=== PATIENT | male | born 1955 | race Hispanic/Latino ===

== ENCOUNTER 2019-03-05 08:27 | Emergency (ER) | payer BC ==
[2019-03-05] MEDS ORDERED: NA CHLORIDE 0.9% 1,000 ML ONE (08:39)
[2019-03-05] MEDS ORDERED: MEPERIDINE HCL 25 MG/0.5 ML ONE (08:39)
[2019-03-05] MEDS ORDERED: ONDANSETRON 4 MG/2 ML VIAL ONE (08:39)
[2019-03-05 08:49] LABS: Absolute Lymphocytes (CBC) 1.1 K/uL (0.7-4.9); Basophils % 0.6 % (0-1.3); Hematocrit 42.1 % (39.6-49.0); Lymphocytes % 8.8 % (15.3-44.8); MPV 8.7 fL (7.6-11.3); RBC Red Blood Cell Count 5.25 M/uL (4.33-5.43)
[2019-03-05 09:04] LABS: Urine Blood NEGATIVE (NEG); Urine Glucose 2+ (NEG); Urine Protein NEGATIVE (NEG)
[2019-03-05 09:20] LABS: Albumin 3.5 g/dL (3.4-5.0); Bilirubin Direct 0.1 mg/dL (0-0.2); Bilirubin Total 0.5 mg/dL (0.2-1.0); Potassium 3.9 mmol/L (3.5-5.1); Protein, Total 7.1 g/dL (6.4-8.2)
[2019-03-05 09:36] LABS: Urine RBC <5 /HPF (NONE SEEN)
[2019-03-05 09:37] LABS: Urine Bacteria <20 /HPF (NONE SEEN); Urine Culture Reflex Order NOT NEEDED
--- NOTE | 2019-03-05 10:08 | RAD REPORT ---
EXAM DESCRIPTION: CTAbdomen Pelvis W Contrast - 03/05/2019 9:44 am CLINICAL HISTORY: Abdominal pain. lower abd pain COMPARISON: CT ABD PELVIS W CONTRAST dated 07/15/2014 TECHNIQUE: Biphasic CT imaging of the abdomen and pelvis was performed with 100 ml non-ionic IV cont rast. All CT scans are performed using dose optimization technique as appropriate and may include automated exposure control or mA/KV adjustment according to patient size. FINDINGS: The lung bases are clear. The liver demonstrates vague area of arterial phase enhancement in the superior posterior right lobe, unchanged. This is most likely related to a benign vascular lesion. The spleen, adrenal glands, panc reas and right kidney are within normal limits. Small left renal cyst is present. No stone or hydrone phrosis of either kidney. No bowel obstruction, free air, free fluid or abscess. Mild thickening of the wall of the descending colon and sigmoid colon is seen suggesting a mild left-sided colitis. The appendix is normal. No pravin dence of significant lymphadenopathy. No suspicious bony findings. IMPRESSION: Mild colitis of the descending colon is suspected.
[2019-03-05] MEDS ORDERED: METRONIDAZOLE 500mg IVPB 500 MG/100 ML BAG IV ONE (10:35)
[2019-03-05] MEDS ORDERED: CIPROFLOXACIN 400mg IV 400 MG/200 ML BAG IV ONE (10:35)
--- NOTE | 2019-03-05 10:48 | ER ---
Nurse's Notes [facility] Name: Luis Guzmán Age: 63 yrs Sex: Male : 1955 Arrival Date: 03/05/2019 Time: 08:28 Bed 4 Private MD: Cristo Schwartz B Diagnosis: Left sided colitis Presentation: 03/05 08:29 Presenting complaint: Patient states: suprapubic discomfort, vomiting that began this ss morning. Diarrhea that began yesterday. Denies fever. Transition of care: patient was not received from another setting of care. Onset of symptoms was March 04, 2019. 08:29 Acuity: POORNIMA 3 ss 08:29 Method Of Arrival: Ambulatory ss 08:35 Risk Assessment: Do you want to hurt yourself or someone else? Patient reports no tw2 desire to harm self or others. Initial Sepsis Screen: Does the patient meet any 2 criteria? No. Patient's initial sepsis screen is negative. Does the patient have a suspected source of infection? No. Patient's initial sepsis screen is negative. Care prior to arrival: None. Historical: - Allergies: 08:36 No Known Drug Allergies; tw2 - Home Meds: 08:36 Actoplus MET 15/1000MG Oral 1 tab 2 times per day [Active]; AMLODIPNE/ATORVASTATIN tw2 10/10 MG daily [Active]; carvedilol 6.25 mg Oral tab 1 tab 2 times per day [Active]; finasteride 5 mg Oral tab 1 tab once daily [Active]; irbesartan-hydrochlorothiazide 300-12.5 mg Oral tab 1 tab once daily [Active]; Klor-Con 10 10 mEq Oral TbER 1 tab once daily [Active]; Nesina 25 mg Oral tab 1 tab once daily [Active]; Toujeo SoloStar 300 unit/mL (1.5 mL) subcutaneous inpn 50 unit daily [Active]; - PMHx: 08:36 BPH; Diabetes - IDDM; Hypertension; tw2 - PSHx: 08:36 None; tw2 - Immunization history:: Adult Immunizations. - Social history:: Smoking status: . - Ebola Screening: : Patient denies travel to an Ebola-affected area in the 21 days before illness onset. - Family history:: not pertinent. - Hospitalizations: : No recent hospitalization is reported. Screenin:35 Abuse screen: Denies threats or abuse. Nutritional screening: No deficits noted. tw2 Tuberculosis screening: No symptoms or risk factors identified. Fall Risk None identified. Assessment: 08:59 General: Appears in no apparent distress. well groomed, Behavior is calm, cooperative, tw2 appropriate for age. Pain: Complains of pain in suprapubic area. Neuro: Level of Consciousness is awake, alert, obeys commands, Oriented to person, place, time, situation. Cardiovascular: Heart tones S1 S2 Patient's skin is warm and dry. Respiratory: Airway is patent Respiratory effort is even, unlabored, Respiratory pattern is regular, symmetrical, Breath sounds are clear bilaterally. GI: Abdomen is flat, Bowel sounds present X 4 quads. Abd is soft X 4 quads Reports lower abdominal pain, diarrhea, nausea. : No signs and/or symptoms were reported regarding the genitourinary system. EENT: No signs and/or symptoms were reported regarding the EENT system. Derm: No signs and/or symptoms reported regarding the dermatologic system. Musculoskeletal: Range of motion: intact in all extremities. 10:00 Reassessment: Patient appears in no apparent distress at this time. No changes from aj1 previously documented assessment. Patient and/or family updated on plan of care and expected duration. Pain level reassessed. Patient is alert, oriented x 3, equal unlabored respirations, skin warm/dry/pink. 10:49 Reassessment: Patient discharge pending completion of IV antibiotics. aj1 Vital Signs: 08:35 BP 128 / 72; Pulse 67; Resp 16; Temp 97.6; Pulse Ox 98% on R/A; Weight 88 kg; Height 5 ss ft. 7 in. (170.18 cm); Pain 6/10; 09:14 BP 122 / 64; Pulse 64; Resp 17; Pulse Ox 97% on R/A; tw2 12:30 BP 126 / 70; Pulse 66; Resp 17; Temp 97.6; Pulse Ox 100% on R/A; sg 08:35 Body Mass Index 30.38 (88.00 kg, 170.18 cm) ss ED Course: 08:28 Patient arrived in ED. mr 08:29 Cristo Schwartz MD is Private Physician. mr 08:29 Tao Ferrari MD is Attending Physician. rn 08:33 Cortney Sims, RN is Primary Nurse. tw2 08:35 Arm band placed on. tw2 08:35 Bed in low position. Call light in reach. tw2 08:43 Triage completed. ss 08:44 Urine collected: clean catch specimen, clear. Initial lab(s) drawn, by me, sent to lab. ms Inserted saline lock: 20 gauge in right forearm, using aseptic technique. Blood collected. 08:55 Radiology exam delayed due to lab results not completed at this time. (BUN/Creatinine). kw1 09:40 CT completed. Patient tolerated procedure well. Patient moved to CT via stretcher. sw Patient moved back from CT. 09:44 CT Abd/Pelvis - IV Contrast Only In Process Unspecified. EDMS 10:29 Primary Nurse role handed off by Cortney Sims RN sg 10:29 Zay Medrano, RN is Primary Nurse. sg 11:15 Awaiting: IV fluids to infuse prior to Discharge to home. sg 12:30 No provider procedures requiring assistance completed. IV discontinued, intact, sg bleeding controlled, No redness/swelling at site. Pressure dressing applied. Administered Medications: 08:40 Drug: Zofran 4 mg Route: IVP; Site: right forearm; tw2 10:40 Follow up: Response: No adverse reaction sg 08:43 Drug: Demerol 25 mg Route: IVP; Site: right forearm; tw2 10:40 Follow up: Response: No adverse reaction; Pain is decreased sg 08:46 Drug: NS 0.9% 1000 ml Route: IV; Rate: 1000 ml; Site: right forearm; tw2 09:00 Follow up: Response: No adverse reaction; IV Status: Completed infusion; IV Intake: sg 990ml 10:40 Drug: Cipro 400 mg Volume: 200 ml; Route: IVPB; Infused Over: 60 mins; Site: right sg forearm; 10:53 Drug: Flagyl 500 mg Volume: 100 ml; Route: IVPB; Rate: 200 ml/hr; Infused Over: 30 sg mins; Site: right forearm; Intake: 09:00 IV: 990ml; Total: 990ml. sg Outcome: 10:47 Discharge ordered by . rn 12:30 Discharged to home ambulatory. sg 12:30 Condition: good 12:30 Discharge instructions given to patient, Instructed on discharge instructions, follow up and referral plans. medication usage, safety practices, Demonstrated understanding of instructions, follow-up care, medications, Prescriptions given X 4. 12:33 Patient left the ED. ss Signatures: Dispatcher [employer] EDCheryl Richards RN RN aj1 Zay Medrano RN RN Rachel Chong mr Bryan, Yday ms Ferrari, MD MD stuart Burger Shelby, RN RN ss Warren, Shannon sw Wise, Tara, RN RN tw2 Adrienne Lomeli [facility]
--- NOTE | 2019-03-05 10:48 | EDPHYS ---
Physician Documentation [facility] Name: Luis Guzmán Age: 63 yrs Sex: Male : 1955 Arrival Date: 03/05/2019 Time: 08:28 Bed 4 Private MD: Cristo Schwartz B ED Physician Tao Ferrari HPI: 03/05 08:37 This 63 yrs old Male presents to ER via Unassigned with complaints of rn Abdominal Pain. 08:37 The patient presents with abdominal pain in the lower abdomen. Onset: The rn symptoms/episode began/occurred yesterday. The symptoms do not radiate. Associated signs and symptoms: Pertinent positives: nausea and vomiting, diarrhea, Pertinent negatives: blood in stools, dysuria, fever, vomiting blood. The symptoms are described as sharp, stabbing. Modifying factors: The symptoms are alleviated by nothing, the symptoms are aggravated by touching the area. Severity of pain: At its worst the pain was moderate in the emergency department the pain has improved. The patient has not experienced similar symptoms in the past. The patient has not recently seen a physician. Historical: - Allergies: 08:36 No Known Drug Allergies; tw2 - Home Meds: 08:36 Actoplus MET 15/1000MG Oral 1 tab 2 times per day [Active]; AMLODIPNE/ATORVASTATIN tw2 10/10 MG daily [Active]; carvedilol 6.25 mg Oral tab 1 tab 2 times per day [Active]; finasteride 5 mg Oral tab 1 tab once daily [Active]; irbesartan-hydrochlorothiazide 300-12.5 mg Oral tab 1 tab once daily [Active]; Klor-Con 10 10 mEq Oral TbER 1 tab once daily [Active]; Nesina 25 mg Oral tab 1 tab once daily [Active]; Toujeo SoloStar 300 unit/mL (1.5 mL) subcutaneous inpn 50 unit daily [Active]; - PMHx: 08:36 BPH; Diabetes - IDDM; Hypertension; tw2 - PSHx: 08:36 None; tw2 - Immunization history:: Adult Immunizations. - Social history:: Smoking status: . - Ebola Screening: : Patient denies travel to an Ebola-affected area in the 21 days before illness onset. - Family history:: not pertinent. - Hospitalizations: : No recent hospitalization is reported. ROS: 08:37 Constitutional: Negative for fever, and weight loss, Eyes: Negative for injury, pain, rn redness, and discharge, ENT: Negative for injury, pain, and discharge, Neck: Negative for injury, pain, and swelling, Cardiovascular: Negative for chest pain, palpitations, and edema, Respiratory: Negative for shortness of breath, cough, wheezing, and pleuritic chest pain, Abdomen/GI: + lower abd pain/nausea/vomiting/diarrhea Back: Negative for injury and pain, : Negative for injury, bleeding, discharge, and swelling, MS/Extremity: Negative for injury and deformity, Skin: Negative for injury, rash, and discoloration, Neuro: Negative for headache, weakness, numbness, tingling, and seizure. Exam: 08:37 Constitutional: This is a well developed, well nourished patient who is awake, alert, rn and in no acute distress. Ambulatory to room without difficulty or distress, walks slowly. Head/Face: Normocephalic, atraumatic. Eyes: Pupils equal round and reactive to light, extra-ocular motions intact. Lids and lashes normal. Conjunctiva and sclera are non-icteric and not injected. Cornea within normal limits. Periorbital areas with no swelling, redness, or edema. ENT: MMM Neck: Trachea midline, no thyromegaly or masses palpated, and no cervical lymphadenopathy. Supple, full range of motion without nuchal rigidity, or vertebral point tenderness. No Meningismus. Cardiovascular: Regular rate and rhythm. No pulse deficits. Respiratory: No increased work of breathing, no retractions or nasal flaring. Abdomen/GI: soft, mild suprapubic tenderness and RLQ tenderness, no rebound, no masses, no inguinal hernia MS/ Extremity: Pulses equal, no cyanosis. Neurovascular intact. Full, normal range of motion. Equal circumference. Neuro: Awake and alert, GCS 15, oriented to person, place, time, and situation. Cranial nerves II-XII grossly intact. Motor strength 5/5 in all extremities. Sensory grossly intact. Cerebellar exam normal. Normal gait. Vital Signs: 08:35 BP 128 / 72; Pulse 67; Resp 16; Temp 97.6; Pulse Ox 98% on R/A; Weight 88 kg; Height 5 ss ft. 7 in. (170.18 cm); Pain 6/10; 09:14 BP 122 / 64; Pulse 64; Resp 17; Pulse Ox 97% on R/A; tw2 12:30 BP 126 / 70; Pulse 66; Resp 17; Temp 97.6; Pulse Ox 100% on R/A; sg 08:35 Body Mass Index 30.38 (88.00 kg, 170.18 cm) ss MDM: 08:29 Patient medically screened. rn 10:46 Differential diagnosis: appendicitis, diverticulitis, non-specific abd pain, rn pancreatitis, Ureterolithiasis, urinary tract infection. Data reviewed: vital signs, nurses notes, lab test result(s), radiologic studies, CT scan, and as a result, I will discharge patient. 10:46 Counseling: I had a detailed discussion with the patient and/or guardian regarding: the rn historical points, exam findings, and any diagnostic results supporting the discharge/admit diagnosis, lab results, radiology results, the need for outpatient follow up, to return to the emergency department if symptoms worsen or persist or if there are any questions or concerns that arise at home. Response to treatment: the patient's symptoms have mildly improved after treatment, and as a result, I will discharge patient. Special discussion: Based on the patient's Hx, exam, and Dx evaluation, there is no indication for emergent surgery or inpatient Tx. It is understood by the patient/guardian that if the Sx's persist or worsen they need to return immediately for re-evaluation. I discussed with the patient/guardian in detail that at this point there is no indication for admission to the hospital. It is understood, however, that if the symptoms persist or worsen the patient needs to return immediately for re-evaluation. ED course: Pt with mild colitis, will treat with abx, normal vitals, improved with nausea medication, return precautions given and understood. . 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 03/05 08:35 Order name: Hepatic Function; Complete Time: 09:40 rn 03/05 08:35 Order name: Lipase; Complete Time: 09:40 rn 03/05 08:36 Order name: Urine Microscopic Only; Complete Time: 09:40 rn 03/05 08:35 Order name: CT Abd/Pelvis - IV Contrast Only; Complete Time: 10:26 rn 03/05 08:36 Order name: Basic Metabolic Panel; Complete Time: 09:40 EDMS 03/05 08:36 Order name: CBC with Automated Diff; Complete Time: 09:40 EDMS 03/05 08:36 Order name: Creatinine (Radiology Only); Complete Time: 09:40 EDMS 03/05 08:44 Order name: Urine Dipstick--Ancillary (enter results); Complete Time: 09:40 bd 03/05 08:35 Order name: IV Saline Lock; Complete Time: 08:45 rn 03/05 08:35 Order name: Labs collected and sent; Complete Time: 08:45 rn 03/05 08:36 Order name: Urine Dipstick-Ancillary (obtain specimen); Complete Time: 08:44 rn Administered Medications: 08:40 Drug: Zofran 4 mg Route: IVP; Site: right forearm; tw2 10:40 Follow up: Response: No adverse reaction sg 08:43 Drug: Demerol 25 mg Route: IVP; Site: right forearm; tw2 10:40 Follow up: Response: No adverse reaction; Pain is decreased sg 08:46 Drug: NS 0.9% 1000 ml Route: IV; Rate: 1000 ml; Site: right forearm; tw2 09:00 Follow up: Response: No adverse reaction; IV Status: Completed infusion; IV Intake: sg 990ml 10:40 Drug: Cipro 400 mg Volume: 200 ml; Route: IVPB; Infused Over: 60 mins; Site: right sg forearm; 10:53 Drug: Flagyl 500 mg Volume: 100 ml; Route: IVPB; Rate: 200 ml/hr; Infused Over: 30 sg mins; Site: right forearm; Disposition: 03/05/19 10:47 Discharged to Home. Impression: Left sided colitis. - Condition is Stable. - Discharge Instructions: Diarrhea, Adult, Nausea and Vomiting, Adult, Colitis. - Prescriptions for Zofran ODT 4 mg Oral tablet,disintegrating - place 1 tablet by TRANSLINGUAL route every 8 hours As needed; 20 tablet. Cipro 500 mg Oral Tablet - take 1 tablet by ORAL route every 12 hours for 10 days; 20 tablet. Flagyl 500 mg Oral Tablet - take 1 tablet by ORAL route every 8 hours for 10 days; 30 tablet. Ultram 50 mg Oral Tablet - take 1 tablet by ORAL route every 6 hours As needed; 15 tablet. - Medication Reconciliation Form, Thank You Letter, Antibiotic Education, Prescription Opioid Use, Work release form form. - Follow up: Private Physician; When: As needed; Reason: Recheck today's complaints, Re-evaluation by your physician. - Problem is new. - Symptoms have improved. Signatures: Dispatcher [employer] EDZay Silverio RN RN Tao Ferrari MD MD rn Smirch, Shelby, RN RN ss Wise, Tara, RN RN tw2 Corrections: (The following items were deleted from the chart) 12:33 10:47 03/05/2019 10:47 Discharged to Home. Impression: Left sided colitis. Condition is ss Stable. Forms are Work release form, Medication Reconciliation Form, Thank You Letter, Antibiotic Education, Prescription Opioid Use. Follow up: Private Physician; When: As needed; Reason: Recheck today's complaints, Re-evaluation by your physician. Problem is new. Symptoms have improved. rn
[2019-03-05 12:54] VITALS: BP 122/64; O2SAT 97
[2019-03-05 12:56] VITALS: TEMP 97.6
== END 2019-03-05 12:33 | disposition home or self-care (01) ==
LOC: ER 08:27
DX: K51.50 Left sided colitis without complications (principal); I10 Essential (primary) hypertension; E11.9 Type 2 diabetes mellitus without complications; Z79.4 Long term (current) use of insulin
CPT/HCPCS: 85025; 80048; 36415; 80076; 83690; 74177; 96375; 96374; 99284; Q9967; J2175; J7030; J2405; J0744; 81003; 81015

== ENCOUNTER 2021-01-24 17:03 | Emergency (ER) | payer BC, OTHER ==
[2021-01-24 17:26] LABS: Urine Blood Negative (Negative); Urine Glucose Negative (Negative); Urine Protein Negative (Negative); Urine pH 5.5 (5.0-7.0)
[2021-01-24 18:04] LABS: Absolute Lymphocytes (CBC) 1.4 K/uL (0.7-4.9); Basophils % 0.5 % (0-1.3); Hematocrit 43.2 % (39.6-49.0); Lymphocytes % 14.4 % (15.3-44.8); MPV 8.5 fL (7.6-11.3); RBC Red Blood Cell Count 5.35 M/uL (4.33-5.43)
[2021-01-24 18:13] LABS: BUN Blood Urea Nitrogen 15 mg/dL (7-18); Bicarbonate 26 mmol/L (21-32); Glucose Level 131 mg/dL (74-106); Potassium 3.7 mmol/L (3.5-5.1); Sodium Level 138 mmol/L (136-145)
--- NOTE | 2021-01-24 19:14 | ER ---
Nurse's Notes [facility] Name: Luis Guzmán Age: 65 yrs Sex: Male : 1955 Arrival Date: 01/24/2021 Time: 17:04 Bed 3 Private MD: Kayla Sung C Diagnosis: Myalgia;Other polyuria;Diarrhea, unspecified;Headache Presentation: 01/24 17:14 Chief complaint: Patient states: has had diarrhea and body aches , feels tired X 2 iw week, sugar has been high and has had deysi mid back pain , has pain with urination and frequency. Coronavirus screen: Client presents with at least one sign or symptom that may indicate coronavirus-19. Ebola Screen: Patient negative for fever greater than or equal to 101.5 degrees Fahrenheit, and additional compatible Ebola Virus Disease symptoms Patient denies exposure to infectious person. Patient denies travel to an Ebola-affected area in the 21 days before illness onset. No symptoms or risks identified at this time. Initial Sepsis Screen: Does the patient meet any 2 criteria? Does the patient have a suspected source of infection?. Risk Assessment: Do you want to hurt yourself or someone else? Patient reports no desire to harm self or others. Onset of symptoms was January 10, 2021. 17:14 Method Of Arrival: Ambulatory iw 17:14 Acuity: POORNIMA 3 iw Historical: - Allergies: 17:17 No Known Allergies; iw - PMHx: 17:17 BPH; Diabetes - IDDM; Hypertension; iw - PSHx: 17:17 None; iw - Immunization history:: Client reports receiving the 2nd dose of the Covid vaccine. - Social history:: Smoking status: Patient denies any tobacco usage or history of. Screenin:24 Abuse screen: Denies threats or abuse. Denies injuries from another. Nutritional ch5 screening: No deficits noted. Tuberculosis screening: No symptoms or risk factors identified. Fall Risk None identified. Assessment: 17:24 Reassessment: No changes from previously documented assessment. General: Appears in no ch5 apparent distress. uncomfortable. Neuro: No deficits noted. Vital Signs: 17:14 Temp 98.3(TE); Pulse Ox 99% on R/A; iw 17:14 BP 146 / 80; Pulse 78; Resp 16; Temp 98.3; Pulse Ox 99% on R/A; Weight 85.73 kg; Height iw 5 ft. 6 in. (167.64 cm); 17:24 BP 166 / 74; Pulse 70; Resp 18; Pulse Ox 97% on R/A; Pain 0/10; ch5 18:45 BP 141 / 74; Pulse 73; Resp 18; Pulse Ox 97% ; Pain 0/10; ch5 19:36 BP 138 / 70; Pulse 70; Resp 18; Pulse Ox 99% on R/A; Pain 2/10; wg 17:14 Body Mass Index 30.51 (85.73 kg, 167.64 cm) ED Course: 17:04 Patient arrived in ED. am2 17:04 Kayla Sung FNP is Private Physician. am2 17:17 Triage completed. iw 17:17 Arm band placed on. iw 17:24 Twin Vela, RN is Primary Nurse. ch5 17:24 Patient has correct armband on for positive identification. Bed in low position. Call 5 light in reach. Side rails up X 1. 17:26 No provider procedures requiring assistance completed. ch5 17:30 Griffin Garay MD is Attending Physician. kdr 17:44 CBC with Diff Sent. ch5 17:44 Chem 7 Sent. ch5 17:44 Urine Culture Sent. ch5 18:13 CXR XRAY In Process Unspecified. EDMS 19:43 IV discontinued, intact, bleeding controlled, No redness/swelling at site. Pressure wg dressing applied. Administered Medications: No medications were administered Outcome: 19:14 Discharge ordered by . kdr 19:44 Discharged to home ambulatory. wg 19:44 Condition: stable 19:44 Discharge instructions given to Instructed on discharge instructions, follow up and referral plans. medication usage, Demonstrated understanding of instructions, follow-up care, medications, Prescriptions given X 1. 19:44 Patient left the ED. Signatures: Dispatcher [employer] EDMS Griffin Garay MD MD kdr Stephanie Erazo, RN RN Mariama Hurst am2 Twin Vela RN RN 5 Andrea Clifton RN
--- NOTE | 2021-01-24 19:15 | EDPHYS ---
Physician Documentation [facility] Name: Luis Guzmán Age: 65 yrs Sex: Male : 1955 Arrival Date: 01/24/2021 Time: 17:04 Bed 3 Private MD: Kayla Sung C ED Physician Griffin Garay HPI: 01/24 17:48 This 65 yrs old Male presents to ER via Ambulatory with complaints of kdr Headache, body aches, Diarrhea. 17:49 The patient has been feeling poorly and tired for about 2 weeks with generalized kdr malaise, body aches and polyuria. He states that he had a physical exam for work about a month ago at which time the physician examining him indicated that he had "bacteria" but did not specify further what this might be. Patient been otherwise fine until the last 2 weeks when he had the above symptoms. He denies cough or congestion or any other Covid-like symptoms he denies fever. Onset: The symptoms/episode began/occurred gradually, 2 week(s) ago. Severity of symptoms: At their worst the symptoms were mild in the emergency department the symptoms are unchanged. The patient has not experienced similar symptoms in the past. The patient has been recently seen by a physician: the patient's primary care provider, For work physical about 1 month ago. Historical: - Allergies: 17:17 No Known Allergies; iw - PMHx: 17:17 BPH; Diabetes - IDDM; Hypertension; iw - PSHx: 17:17 None; iw - Immunization history:: Client reports receiving the 2nd dose of the Covid vaccine. - Social history:: Smoking status: Patient denies any tobacco usage or history of. ROS: 17:49 Constitutional: Negative for fever, chills, and weight loss, general malaise only with kdr arthralgias and myalgias Eyes: Negative for injury, pain, redness, and discharge, ENT: Negative for injury, pain, and discharge, Neck: Negative for injury, pain, and swelling, Cardiovascular: Negative for chest pain, palpitations, and edema, Respiratory: Negative for shortness of breath, cough, wheezing, and pleuritic chest pain, Back: Negative for injury and pain, : Negative for injury, bleeding, discharge, and swelling, MS/Extremity: Negative for injury and deformity, Skin: Negative for injury, rash, and discoloration, Psych: Negative for depression, anxiety, suicide ideation, homicidal ideation, and hallucinations, Allergy/Immunology: Negative for hives, rash, and allergies, Hematologic/Lymphatic: Negative for swollen nodes, abnormal bleeding, and unusual bruising. 17:49 Abdomen/GI: Positive for nausea, diarrhea, Occasional, Negative for vomiting, abdominal cramps, abdominal distension, anorexia, dysphagia, hematemesis, black/tarry stool, rectal pain, rectal bleeding. 17:49 Endocrine: Positive for polyuria, Negative for cold intolerance, heat intolerance, polydipsia, polyphagia. Exam: 17:49 Constitutional: This is a well developed, well nourished patient who is awake, alert, kdr and in no acute distress. Head/Face: Normocephalic, atraumatic. Eyes: Pupils equal round and reactive to light, extra-ocular motions intact. Lids and lashes normal. Conjunctiva and sclera are non-icteric and not injected. Cornea within normal limits. Periorbital areas with no swelling, redness, or edema. Neck: Trachea midline, no thyromegaly or masses palpated, and no cervical lymphadenopathy. Supple, full range of motion without nuchal rigidity, or vertebral point tenderness. No Meningismus. Chest/axilla: Normal chest wall appearance and motion. Nontender with no deformity. No lesions are appreciated. Cardiovascular: Regular rate and rhythm with a normal S1 and S2. No gallops, murmurs, or rubs. Normal PMI, no JVD. No pulse deficits. Respiratory: Lungs have equal breath sounds bilaterally, clear to auscultation and percussion. No rales, rhonchi or wheezes noted. No increased work of breathing, no retractions or nasal flaring. Abdomen/GI: Soft, non-tender, with normal bowel sounds. No distension or tympany. No guarding or rebound. No evidence of tenderness throughout. Back: No spinal tenderness. No costovertebral tenderness. Full range of motion. Skin: Warm, dry with normal turgor. Normal color with no rashes, no lesions, and no evidence of cellulitis. MS/ Extremity: Pulses equal, no cyanosis. Neurovascular intact. Full, normal range of motion. Neuro: Awake and alert, GCS 15, oriented to person, place, time, and situation. Cranial nerves II-XII grossly intact. Motor strength 5/5 in all extremities. Sensory grossly intact. Cerebellar exam normal. Normal gait. Psych: Awake, alert, with orientation to person, place and time. Behavior, mood, and affect are within normal limits. 17:49 Back: CVA tenderness, that is mild, Very mild CVA tenderness bilaterally right greater than left. Vital Signs: 17:14 Temp 98.3(TE); Pulse Ox 99% on R/A; iw 17:14 BP 146 / 80; Pulse 78; Resp 16; Temp 98.3; Pulse Ox 99% on R/A; Weight 85.73 kg; Height iw 5 ft. 6 in. (167.64 cm); 17:24 BP 166 / 74; Pulse 70; Resp 18; Pulse Ox 97% on R/A; Pain 0/10; ch5 18:45 BP 141 / 74; Pulse 73; Resp 18; Pulse Ox 97% ; Pain 0/10; ch5 19:36 BP 138 / 70; Pulse 70; Resp 18; Pulse Ox 99% on R/A; Pain 2/10; wg 17:14 Body Mass Index 30.51 (85.73 kg, 167.64 cm) iw MDM: 17:49 Data reviewed: vital signs, nurses notes, lab test result(s), radiologic studies. kdr Counseling: I had a detailed discussion with the patient and/or guardian regarding: the historical points, exam findings, and any diagnostic results supporting the discharge/admit diagnosis, lab results, radiology results. 19:14 Patient medically screened. [facility] 01/24 17:26 Order name: Urine Dipstick-Ancillary; Complete Time: 17:35 EDDC 01/24 17:35 Order name: CBC with Diff [facility] 01/24 17:35 Order name: Chem 7 [facility] 01/24 17:35 Order name: Urine Culture [facility] 01/24 17:35 Order name: CBC with Automated Diff; Complete Time: 18:54 EDDC 01/24 17:36 Order name: Basic Metabolic Panel; Complete Time: 18:54 [facility] 01/24 17:35 Order name: Urine Dipstick-Ancillary (obtain specimen); Complete Time: 17:44 [facility] 01/24 17:36 Order name: CXR XRAY [facility] 01/24 17:36 Order name: Urine Culture EDMS Administered Medications: No medications were administered Disposition Summary: 01/24/21 19:14 Discharge Ordered Location: Home kdr Problem: new kdr Symptoms: have improved kdr Condition: Stable kdr Diagnosis - Myalgia kdr - Other polyuria kdr - Diarrhea, unspecified kdr - Headache kdr Followup: kdr - With: Private Physician - When: 2 - 3 days - Reason: If symptoms return, Further diagnostic work-up, Recheck today's complaints, Continuance of care, Re-evaluation by your physician Discharge Instructions: - Discharge Summary Sheet kdr - General Headache Without Cause kdr - Diarrhea, Adult, [id number] kdr - Weakness, [id number] kdr Forms: - Medication Reconciliation Form kdr - Thank You Letter kdr Prescriptions: - Ibuprofen 600 mg Oral Tablet - take 1 tablet by ORAL route every 6 hours As needed take with food; 30 tablet; kdr Refills: 0, Product Selection Permitted Signatures: Dispatcher [employer] EDMS Griffin Garay MD MD kdr Stephanie Erazo RN RN iw Corrections: (The following items were deleted from the chart) 19:36 19:12 CORONAVIRUS+[email or web address] ordered. EDMS EDMS
--- NOTE | 2021-01-24 19:46 | RAD REPORT ---
EXAM DESCRIPTION: RAD - Chest Single View - 01/24/2021 6:13 pm CLINICAL HISTORY: [place]EL[place], general malaise COMPARISON: Portable May 2012 TECHNIQUE: AP portable chest image was obtained 01/24/2021 6:13 pm . FINDINGS: No peripheral mass or consolidation. No failure or volume overload. Interstitial markings are prominent but not clearly different from comparison. Heart and vasculature are normal. No measura ble pleural effusion and no pneumothorax. No acute bony abnormality seen. No acute aortic findings scales spected. IMPRESSION: No acute cardiopulmonary process. No significant change from comparison study.
[2021-01-24 20:59] VITALS: TEMP 98.3
[2021-01-24 21:03] VITALS: BP 138/70; O2SAT 99
== END 2021-01-24 19:44 | disposition home or self-care (01) ==
LOC: ER 17:03
DX: M79.10 Myalgia, unspecified site (principal); R35.8 Other polyuria; R19.7 Diarrhea, unspecified; I10 Essential (primary) hypertension; E11.9 Type 2 diabetes mellitus without complications; Z20.822 Contact with and (suspected) exposure to COVID-19
CPT/HCPCS: 87088; 85025; 87086; 80048; 36415; 81003; 71045; 99283; U0003

== ENCOUNTER 2021-04-15 19:06 | Emergency (ER) | payer OTHER ==
[2021-04-15] MEDS ORDERED: MECLIZINE HCL 12.5 MG TAB ONE (22:11)
[2021-04-15] MEDS ORDERED: ONDANSETRON 4 MG/2 ML VIAL ONE (22:12)
[2021-04-15] MEDS ORDERED: NA CHLORIDE 0.9% 1,000 ML ONE (22:12)
[2021-04-15 22:35] LABS: Urine Blood Negative (Negative); Urine Glucose Trace (Negative); Urine Protein Negative (Negative); Urine Specific Gravity 1.015 (1.005-1.030)
[2021-04-15 22:43] LABS: Absolute Lymphocytes (CBC) 2.8 K/uL (0.7-4.9); Basophils % 0.8 % (0-1.3); Hematocrit 42.1 % (39.6-49.0); Lymphocytes % 27.2 % (15.3-44.8); MPV 8.4 fL (7.6-11.3); RBC Red Blood Cell Count 5.21 M/uL (4.33-5.43)
[2021-04-15 23:00] LABS: Urine Bacteria <20 /HPF (NONE SEEN); Urine RBC <5 /HPF (NONE SEEN)
[2021-04-15 23:02] LABS: BUN Blood Urea Nitrogen 16 mg/dL (7-18); Bicarbonate 30 mmol/L (21-32); Glucose Level 116 mg/dL (74-106); Potassium 3.7 mmol/L (3.5-5.1); Sodium Level 144 mmol/L (136-145); Troponin (Emerg Dept Use Only) < 0.02 ng/mL (0.0-0.045)
--- NOTE | 2021-04-16 01:40 | EDPHYS ---
Physician Documentation [facility] Name: Luis Guzmán Age: 65 yrs Sex: Male : 1955 Arrival Date: 04/15/2021 Time: 19:10 Bed 11 Private MD: ED Physician Tao Ferrari HPI: 04/15 22:25 This 65 yrs old Male presents to ER via Ambulatory with complaints of rn Dizziness. 22:25 The patient presents with dizziness, lightheadedness, feeling off balance. Onset: The rn symptoms/episode began/occurred 3 day(s) ago. Context: occurred at an unknown location, occurred while the patient was at rest. Modifying factors: The symptoms are alleviated by holding head still, lying down, the symptoms are aggravated by movement of head, standing up, changing position. Associated signs and symptoms: Pertinent positives: nausea, Pertinent negatives: abdominal pain, blurred vision, chest pain, confusion, diaphoresis, focal weakness, head injury, headache, seizure, shortness of breath, syncope, vomiting. Severity of symptoms: At their worst the symptoms were moderate in the emergency department the symptoms have improved. The patient has not experienced similar symptoms in the past. The patient has not recently seen a physician. Patient reports at least 3 days of intermittent dizziness, worse with movement of head and changing position, states able to work but when bends over and lift something feels lightheaded. Denies any focal head injury. Denies fever. Denies focal neurological deficit. No vision changes. Otherwise rest of body is working just fine. Has never happened to him before. He is diabetic and has hypertension. States glucose has been high lately and has been urinating a lot.. Historical: - Allergies: 22:10 No Known Allergies; ss - Immunization history:: Client reports receiving the 2nd dose of the Covid vaccine. - Social history:: Smoking status: Patient denies any tobacco usage or history of. - Family history:: not pertinent. - Hospitalizations: : No recent hospitalization is reported. ROS: 22:25 Constitutional: Negative for fever, chills, and weight loss, Eyes: Negative for injury, rn pain, redness, and discharge, ENT: Negative for injury, pain, and discharge, Neck: Negative for injury, pain, and swelling, Cardiovascular: Negative for chest pain, palpitations, and edema, Respiratory: Negative for shortness of breath, cough, wheezing, and pleuritic chest pain, Abdomen/GI: Positive for nausea, negative for abdominal pain Back: Negative for injury and pain, : Negative for injury, bleeding, discharge, and swelling, MS/Extremity: Negative for injury and deformity, Skin: Negative for injury, rash, and discoloration, Neuro: Negative for headache, weakness, numbness, tingling, and seizure. Exam: 22:25 Constitutional: This is a well developed, well nourished patient who is awake, alert, rn and in no acute distress. Head/Face: Normocephalic, atraumatic. Eyes: Periorbital areas with no swelling, redness, or edema. Cardiovascular: Regular rate and rhythm. No pulse deficits. Respiratory: Speaking full sentences, unlabored. No increased work of breathing, no retractions or nasal flaring. Abdomen/GI: Soft, non-tender Skin: Warm, dry MS/ Extremity: Pulses equal, no cyanosis. Neurovascular intact. Full, normal range of motion. Equal circumference. Neuro: Awake and alert, GCS 15, oriented to person, place, time, and situation. Cranial nerves II-XII grossly intact. Motor strength 5/5 in all extremities. Sensory grossly intact. Cerebellar exam normal. 23:27 ECG was reviewed by the Attending Physician. rn Vital Signs: 19:38 BP 156 / 73; Pulse 72; Resp 20; Temp 97.9; Pulse Ox 97% on R/A; Weight 88 kg; Height 5 da3 ft. 6 in. (167.64 cm); 22:09 BP 155 / 74; Pulse 59; Resp 15; Pulse Ox 97% on R/A; Pain 0/10; ss 04/16 00:24 BP 135 / 60; Pulse 78; Resp 15; Pulse Ox 100% on R/A; Pain 0/10; ss 02:06 BP 124 / 56; Pulse 64; Resp 16 S; Temp 96.4(O); Pulse Ox 95% on R/A; bb 04/15 19:38 Body Mass Index 31.31 (88.00 kg, 167.64 cm) da3 MDM: 04/15 22:01 Patient medically screened. rn 04/16 01:38 Differential diagnosis: CVA, generalized weakness, hypovolemia, idiopathic dizziness, rn TIA, vertigo. Differential diagnosis: cardiac arrhythmia. Data reviewed: vital signs, nurses notes. Data reviewed: lab test result(s), EKG, radiologic studies, CT scan, and as a result, I will discharge patient. Counseling: I had a detailed discussion with the patient and/or guardian regarding: the historical points, exam findings, and any diagnostic results supporting the discharge/admit diagnosis, lab results, radiology results, the need for outpatient follow up, to return to the emergency department if symptoms worsen or persist or if there are any questions or concerns that arise at home. Response to treatment: the patient's symptoms have markedly improved after treatment, and as a result, I will discharge patient. Special discussion: I discussed with the patient/guardian in detail that at this point there is no indication for admission to the hospital. It is understood, however, that if the symptoms persist or worsen the patient needs to return immediately for re-evaluation. Based on the history and exam findings, there is no indication for further emergent testing or inpatient evaluation. I discussed with the patient/guardian the need to see the neurologist for further evaluation of the symptoms. ED course: No acute findings in CT head or CT angio, feels much better, denies any dizziness, will DC home with meclizine and neurology follow-up. 04/15 22:07 Order name: CBC with Diff; Complete Time: 23:20 rn 04/15 22:07 Order name: Basic Metabolic Panel; Complete Time: 23:20 rn 04/15 22:07 Order name: Urine Microscopic Only; Complete Time: 23:20 rn 04/15 22:07 Order name: Troponin (emerg Dept Use Only); Complete Time: 23:20 rn 04/15 22:35 Order name: Urine Dipstick-Ancillary; Complete Time: 23:20 EDMS 04/15 23:48 Order name: Glucose, Ancillary Testing; Complete Time: 23:51 EDMS 04/15 22:07 Order name: CT Head Brain wo Cont rn 04/15 22:07 Order name: CT Head Angio rn 04/15 22:07 Order name: CT Neck Angio rn 04/15 22:07 Order name: IV Start; Complete Time: 22:35 rn 04/15 22:07 Order name: EKG; Complete Time: 22:08 rn 04/15 22:07 Order name: Urine Dipstick-Ancillary (obtain specimen); Complete Time: 22:35 rn 04/15 22:07 Order name: Glucose Level; Complete Time: 22:35 rn 04/15 22:07 Order name: EKG - Nurse/Tech; Complete Time: 23:35 rn EC/08 23:27 Rate is 65 beats/min. Rhythm is regular. Left axis deviation noted. QRS is positive in rn lead I and negative in lead aVF. OK interval is prolonged at 216 msec. QRS interval is normal. QT interval is normal. No Q waves. T waves are Normal. No ST changes noted. Clinical impression: NSR w/ Non-specific ST/T Changes and 1st degree heart block. Interpreted by me. Administered Medications: : Drug: NS 0.9% 1000 ml Route: IV; Rate: 1000 ml; Site: right forearm; 04/16 00:23 Follow up: IV Intake: 1000ml 04/15 22:28 Drug: Meclizine 50 mg Route: PO; 04/16 00:52 Follow up: Response: No adverse reaction; Marked relief of symptoms 04/15 22:30 Drug: Zofran (Ondansetron) 4 mg Route: IVP; Site: right forearm; 04/16 00:53 Follow up: Response: No adverse reaction Disposition Summary: 04/16/21 01:39 Discharge Ordered Location: Home rn Problem: new rn Symptoms: have improved rn Condition: Stable rn Diagnosis - Other peripheral vertigo rn - Dizziness and giddiness rn Followup: rn - With: - When: 2 - 3 days - Reason: Recheck today's complaints, Re-evaluation by your physician Discharge Instructions: - Discharge Summary Sheet rn - Dizziness rn - Vertigo rn Forms: - Medication Reconciliation Form rn - Thank You Letter rn - Antibiotic modern dancer - Prescription Opioid Use rn Prescriptions: - Meclizine 25 mg Oral Tablet - take 1 tablet by ORAL route every 8 hours As needed; 30 tablet; Refills: 0, rn Product Selection Permitted Signatures: Dispatcher [employer] Tao Camilo MD MD rn Smirch, Shelby, RN RN Miguel Alex RN RN da3 Corrections: (The following items were deleted from the chart) 04/15 19:42 19:42 PMHx: Hypertension; da3 da3 19:42 19:42 PMHx: Diabetes - IDDM; da3 da3 19:42 19:42 PMHx: BPH; da3 da3
--- NOTE | 2021-04-16 01:40 | ER ---
Nurse's Notes [facility] Name: Luis Guzmán Age: 65 yrs Sex: Male : 1955 Arrival Date: 04/15/2021 Time: 19:10 Bed 11 Private MD: Diagnosis: Other peripheral vertigo;Dizziness and giddiness Presentation: 04/15 19:38 Chief complaint: Patient states: dizziiness and head pain. Coronavirus screen: Vaccine da3 status: Patient reports receiving the 2nd dose of the covid vaccine. Ebola Screen: No symptoms or risks identified at this time. Initial Sepsis Screen: Does the patient meet any 2 criteria? No. Patient's initial sepsis screen is negative. Risk Assessment: Do you want to hurt yourself or someone else? Patient reports no desire to harm self or others. 19:38 Method Of Arrival: Ambulatory da3 19:38 Acuity: POORNIMA 3 da3 Triage Assessment: 19:43 General: Appears in no apparent distress. comfortable, Behavior is calm, cooperative, da3 appropriate for age. Historical: - Allergies: 22:10 No Known Allergies; ss - Immunization history:: Client reports receiving the 2nd dose of the Covid vaccine. - Social history:: Smoking status: Patient denies any tobacco usage or history of. - Family history:: not pertinent. - Hospitalizations: : No recent hospitalization is reported. Screenin:36 Abuse screen: Denies threats or abuse. Denies injuries from another. Nutritional ss screening: No deficits noted. Tuberculosis screening: Never had TB. Fall Risk None identified. Assessment: 22:36 Reassessment: Pt to CT at this time VIA stretcher. ss 04/16 00:24 Reassessment: Patient appears in no apparent distress at this time. Patient and/or ss family updated on plan of care and expected duration. Pain level reassessed. Patient is alert, oriented x 3, equal unlabored respirations, skin warm/dry/pink. Pt ambulated to restroom with steady gait. Is requesting juice. OK per Dr. Ferrari. Awaiting for CT report. 02:04 Reassessment: Patient is alert, oriented x 3, equal unlabored respirations, skin bb warm/dry/pink. pt verbalized understanding of and agrees to plan of care discharge instructions given pt ambulated with steady gait to exit Patient states feeling better. Patient states symptoms have improved. Vital Signs: 04/15 19:38 BP 156 / 73; Pulse 72; Resp 20; Temp 97.9; Pulse Ox 97% on R/A; Weight 88 kg; Height 5 da3 ft. 6 in. (167.64 cm); 22:09 BP 155 / 74; Pulse 59; Resp 15; Pulse Ox 97% on R/A; Pain 0/10; ss 12 00:24 BP 135 / 60; Pulse 78; Resp 15; Pulse Ox 100% on R/A; Pain 0/10; ss 02:06 BP 124 / 56; Pulse 64; Resp 16 S; Temp 96.4(O); Pulse Ox 95% on R/A; bb 04/15 19:38 Body Mass Index 31.31 (88.00 kg, 167.64 cm) da3 ED Course: 04/15 19:10 Patient arrived in ED. es 19:42 Triage completed. da3 21:57 Savanna Bazan, SOLIS is Primary Nurse. ss 22:01 Tao Ferrari MD is Attending Physician. rn 22:09 Arm band placed on right wrist. ss 22:25 Patient has correct armband on for positive identification. Bed in low position. Call ss light in reach. 22:25 Patient maintains SpO2 saturation greater than 95% on room air. ss 22:36 Inserted saline lock: 20 gauge in right forearm, using aseptic technique. Blood ss collected. 22:50 CT Neck Angio In Process Unspecified. EDMS 22:51 CT Head Angio In Process Unspecified. EDMS 22:51 CT Head Brain wo Cont In Process Unspecified. EDMS 04/16 01:39 Audi Connelly MD is Referral Physician. rn 02:05 No provider procedures requiring assistance completed. IV discontinued, intact, bb bleeding controlled, No redness/swelling at site. Pressure dressing applied. Administered Medications: 04/15 22:28 Drug: NS 0.9% 1000 ml Route: IV; Rate: 1000 ml; Site: right forearm; 04/16 00:23 Follow up: IV Intake: 1000ml ss 04/15 22:28 Drug: Meclizine 50 mg Route: PO; 04/16 00:52 Follow up: Response: No adverse reaction; Marked relief of symptoms 04/15 22:30 Drug: Zofran (Ondansetron) 4 mg Route: IVP; Site: right forearm; ss 04/16 00:53 Follow up: Response: No adverse reaction ss Intake: 00:23 IV: 1000ml; Total: 1000ml. ss Outcome: 01:39 Discharge ordered by . solis 02:06 Discharged to home ambulatory. bb 02:06 Condition: stable 02:06 Discharge instructions given to patient, Instructed on discharge instructions, follow up and referral plans. medication usage, Demonstrated understanding of instructions, follow-up care, medications, Prescriptions given X 1. 02:07 Patient left the ED. bb Signatures: Dispatcher [employer] EDMuriel Pollock Brenda, RN RN bb Tao Ferrari MD MD rn Smirch, Shelby, RN RN ss Allan, David, RN RN da3 Corrections: (The following items were deleted from the chart) 04/15 19:42 19:42 PMHx: Hypertension; da3 da3 19:42 19:42 PMHx: Diabetes - IDDM; da3 da3 19:42 19:42 PMHx: BPH; da3 da3 04/16 00:53 04/15 10:30 Zofran (Ondansetron) 4 mg IVP in right forearm ss 04/16 00:54 04/15 10:28 Meclizine 50 mg PO ss 04/16 00:54 04/15 10:28 NS 0.9% 1000 ml IV at 1000 ml in right forearm ss ss
[2021-04-16 02:17] VITALS: BP 124/56; TEMP 96.4; O2SAT 95
--- NOTE | 2021-04-16 11:47 | RAD REPORT ---
EXAM DESCRIPTION: CT - Head Brain Wo Cont - 04/16/2021 12:26 am CLINICAL HISTORY: DIZZINESS COMPARISON: None. TECHNIQUE: CT HEAD WITHOUT IV CONTRAST on 04/15/2021 10:07 PM SALES AND SERVICE ADVISOR This exam was performed according to our departmental dose-optimization program, which includes autom ated exposure control, adjustment of the mA and/or kV according to patient size and/or use of iterati ve reconstruction technique. FINDINGS: There is no acute hemorrhage, mass effect or midline shift. Rojo-white differentiation is preserved. There is no hydrocephalus. There is no significant volume loss for age. There are symmetri c bilateral basal ganglia calcifications. The calvarium is intact. Orbits and globes are unremarkable. The paranasal sinuses are clear. Mastoid air cells are clear. IMPRESSION: No acute intracranial findings. Electronically signed by: Demetrio Rivera MD 04/15/2021 11:12 PM SALES AND SERVICE ADVISOR Due to temporary technical issues with the PACS/Fluency reporting system, reports are being signed by the in house radiologists without review as a courtesy to insure prompt reporting. The interpreting radiologist is fully responsible for the content of the report.
--- NOTE | 2021-04-16 11:48 | RAD REPORT ---
EXAM DESCRIPTION: CT - Head angio - 04/16/2021 12:26 am CLINICAL HISTORY: DIZZINESS COMPARISON: None. TECHNIQUE: CT HEAD ANGIOGRAPHY WITH IV CONTRAST on 04/15/2021 10:07 PM EXTENSION ASSOCIATE This exam was performed according to our departmental dose-optimization program, which includes autom ated exposure control, adjustment of the mA and/or kV according to patient size and/or use of iterati ve reconstruction technique. MIP reconstructions were generated. Stenoses are calculated by NASCET criteria. FINDINGS: Intracranially the cavernous segments of the internal carotid arteries are patent and symm etric bilaterally. Vertebral basilar system within normal limits for age. The right vertebral artery is diminutive. No aneurysm identified within the [place]. Anterior, middle, and posterior cerebral circulations patent and symmetric bilaterally. Dural sinuses are well opacified and without filling defect. IMPRESSION: Unremarkable CTA of the brain without evidence of hemodynamically significant stenosis, aneurysm or AVM. Electronically signed by: Demetrio Rivera MD 04/15/2021 11:17 PM EXTENSION ASSOCIATE Due to temporary technical issues with the PACS/Fluency reporting system, reports are being signed by the in house radiologists without review as a courtesy to insure prompt reporting. The interpreting radiologist is fully responsible for the content of the report.
--- NOTE | 2021-04-16 11:51 | RAD REPORT ---
EXAM DESCRIPTION: CT - Neck Angio - 04/16/2021 12:29 am CLINICAL HISTORY: Dizziness COMPARISON: None. 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 MIP reconstructions were generated. Stenoses are calculated by NASCET criteria. FINDINGS: The visualized aortic arch and origins of the great vessels unremarkable. The common carotid arteries are patent and symmetric bilaterally. No hemodynamically significant stenosis is observed at the common carotid bifurcations or origins of the internal carotid arteries bilaterally. Left vertebral artery is unremarkable without evidence of pseudoaneurysm, hemodynamically significant stenosis, or dissection. Right vertebral artery is diminutive. IMPRESSION: Unremarkable CT angiogram of the neck for age without dissection or hemodynamically sign ificant stenosis. CAROTID STENOSIS REFERENCE USING NASCET CRITERIA: % ICA stenosis = (1 - narrowest ICA diameter/diameter of distal cervical ICA) x 100. Mild - <50% stenosis. Moderate - 50-69% stenosis. Severe - 70-94% stenosis. Near occlusion - 95-99% stenosis. Occluded - 100% stenosis. Electronically signed by: Demetrio Rivera MD 04/15/2021 11:16 PM COUPON COLLECTION CLERK Due to temporary technical issues with the PACS/Fluency reporting system, reports are being signed by the in house radiologists without review as a courtesy to insure prompt reporting. The interpreting radiologist is fully responsible for the content of the report.
== END 2021-04-16 02:07 | disposition home or self-care (01) ==
LOC: ER 19:06
DX: H81.399 Other peripheral vertigo, unspecified ear (principal); R42 Dizziness and giddiness
CPT/HCPCS: 93005; 85025; 80048; 36415; 82565; 82947; 84484; 70450; 70496; 70498; 96374; 99284; Q9967; J7030; J2405; 81003; 81015; J8597

== ENCOUNTER 2024-03-12 21:27 | Emergency (ER) | payer OTHER ==
--- OUTSIDE RECORDS SUMMARY | 2024-03-12 21:38 | XMS REPORT | Continuity of Care Document ---
Author Name Unknown Address [address] [place] [address] [facility] Address [address] [place] [address] Care Team Providers Care Group Reservations Coordinator Name Role Phone Cristo Schwartz Primary Care Physician [phone] Zuly Lomax RN Attending Clinician Unavailab LUZ Jasmine Attending Clinician Unavailable Mora Mcginnis MD Attending Clinician [phone] Kathy SAMUEL, Emilia Attending Clinician [phone] Luz Fuentes MD Attending Clinician [phone] MELISSA BECKER Attending Clinician Unavailable Melissa Clifton Attending Clinician [phone] RUBENSF_A1 Attending Clinician Unavailable Rajesh Kilgore Attending Clinician Unavailable ASA ROMO Attending Clinician Unavailab Katya Valdez Cardiology Attending Clinician Unavailable Mei ELY, Emmanuel Loja Attending Clinician Unavail able Filippo VALENCIA, Raman Tavares Attending Clinician [phone] MORA MCGINNIS Attending Clinician Unavailable LENNOX VASQUEZ Attending Clinician Unavailable Pedro VALENCIA, Lennox Attending Clinician [phone] TINY CANTU Attending Clinician Unavailab janett Hussein AIRPLANE DISPATCHER, Alisha K Attending Clinician Unavail able Clive ASSEMBLER 1ST SHIFT, Tiny Humphrey Attending Clinician [phone] PRITESH DUMONT Attending Clinician Unavailable Julia PAC, Pritesh S Attending Clinician [phone] Juanjo PT, Macie Attending Clinician UnavailRONY Bang Attending Clinician Unavailable Draw, Cl[facility] Attending Clinician Unavailleydi Chanel MD, Andre Arana Attending Clinician + ANDRE CHANEL Attending Clinician Unav ailable Feli SPENCER Attending Clinician Unavailable Johanna PAC, Feli Stapleton Attending Clinician [phone] Doctor Unassigned, [place] Attending Clinician U navailMONTANA Foley Attending Clinician Unavailable Montana Goetz MD Attending Clinician [phone] Leonard ELY, [place] Christopher Attending Clinician Unavail able Alvaro KELLEY, Wang Pérez Attending Clinician [phone] Yasmin Nava MD Attending Clinician + SHREYAS MOODY Attending Clinician Unavaila Shreyas Colby Attending Clinician + [phone] Tommy Conley MD Attending Clinician [phone] TOMMY CONLEY Attending Clinician Unavailable Rachel Mcfarland PA-C R Attending Clinician [phone] Marly Villarreal MD Attending Clinician [phone] MARLY VILLARREAL Attending Clinician Unavailable Trish VALENCIA, Duke Attending Clinician [phone] Jack VALENCIA, Amparo Mohamud Attending Clinician + Only, Adc Test Attending Clinician Unavailable Radiology Attending Clinician Unavailable Juan Mae MD Attending Clinician [phone] JUAN MAE Attending Clinician Unavailable Boston Dempsey MD Attending Clinician [phone] BOSTON DEMPSEY Attending Clinician UnavailLUZ Mccormick Admitting Clinician Unavailable Luz Fuentes MD Admitting Clinician [phone] YOUSUF_A1 Admitting Clinician Unavailable Rajesh Kilgore Admitting Clinician Unavailable EMILIA CHAVEZ Admitting Clinician Unavailab le Physician, No Primary Care Admitting Clinician U navailable KNOW, DOES_NOT Admitting Clinician Unavailable Raman Patel MD Admitting Clinician [phone] RAMAN PATEL Admitting Clinician UnavailLENNOX Carrasco Admitting Clinician Unavailable Feli SPENCER Admitting Clinician Unavailable MONTANA GOETZ Admitting Clinician Unavailable ANDRE CHANEL Admitting Clinician Unav ailSHREYAS Jerry Admitting Clinician UnavailTommy Batista MD Admitting Clinician [phone] TOMMY CONLEY Admitting Clinician Unavailable Payers Payer Name Policy Type Policy Number Effective Date Expirati on Date Source [facility] noodls [id number] 2021 00:00[facility]00 [facility] GE - PPO) [id number] 2023 00:00:00 Problems Condition Name Condition Details Condition Category Status Onset Date Resolution Date Last Treatment Date Treating Clinician Comments Source 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 Disease Active 09-17 00:00: 00 [facility] Acute on chronic congestive heart failure, unspecifie d heart failure type Acute on chronic congestive heart failure, unspecifie d heart failure type Disease Active 09-16 00:00: 00 [facility] 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 Disease Active 2022-05 00:00: 00 [facility] Acute on chronic systolic and diastolic heart failure, NYHA class 3 Acute on chronic systolic and diastolic heart failure, NYHA class 3 Disease Active 2022-05 2-12 00:00: 00 [facility] Troponin I above reference range Troponin I above reference range Disease Active 2022-05 2- 00:00: 00 [facility] Pneumonia of both lower lobes due to infectious organism Pneumonia of both lower lobes due to infectious organism Disease Active 2022-05 2- 00:00: 00 [facility] Acute cough Acute cough Disease Active 2022-05 2- 00:00: 00 [facility] Left pontine stroke Left pontine stroke Disease Active 4- 00:00: 00 [facility] Dysphasia Dysphasia Disease Active 4 00:00: 00 [facility] Disturbanc e of skin sensation Disturbanc e of skin sensation Disease Active 3-14 00:00: 00 [facility] 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 Disease Active 2020-05 2 00:00: 00 [facility] Dizziness Dizziness Disease Active 2020-05 2 00:00: 00 [facility] Chest pain Chest pain Disease Active 2 00:00: 00 [facility] Obesity (BMI 30-39.9) Obesity (BMI 30-39.9) Disease Active 2 00:00: 00 [facility] Hypertensi on Hypertensi on Disease [facility] Hyperlipid emia Hyperlipid emia Disease [facility] Diabetes mellitus Diabetes mellitus Disease [facility] Allergies, Adverse Reactions, Alerts Allergy Name Allergy Type Status Severity Reaction(s) Onset Date Inactive Date Treating Clinician Comments Source No Known Allergie s DA Active U 2022-05 00:00: [address] [facility] No Known Allergie s DA Active U 2022-05 00:00: 00 [facility] [place] NO KNOWN ALLERGIE S Drug Class Active [facility] Social History Social Habit Start Date Stop Date Quantity Comments Source History SDOH Alcohol Std Drinks [facility] History SDOH Alcohol Binge [facility] History SDOH Social Connections Get Together [facility] History SDOH Social Connections [facility] History SDOH Social Connections Membership [facility] History SDOH Social Connections Meetings [facility] Gender identity Univ ersity [facility] Sexual orientation U niversity [facility] Education - What is the highest level of school you have completed or the highest degree you have received? 2023-04-17 00:00:00 2023-04-17 00:00:00 6th grade [facility] History of Social function 2022-12-30 00:00:00 2022-12-30 00:00:00 [facility] Exposure to SARS-CoV-2 (event) 2022-09-22 00:00:00 2022-10-02 22:49:00 Not sure [facility] History SDOH Alcohol Frequency 2022-09-01 00:00:00 2022-09-01 00:00:00 1 [facility] History SDOH Social Connections Phone 2022-09-01 00:00:00 2022-09-01 00:00:00 5 [facility] History SDOH Social Connections Living 2022-09-01 00:00:00 2022-09-01 00:00:00 3 [facility] History SDOH Physical Activity DPW 2022-09-01 00:00:00 2022-09-01 00:00:00 7 [facility] History SDOH Physical Activity MPS 2022-09-01 00:00:00 2022-09-01 00:00:00 15 [facility] History SDOH Financial 2022-09-01 00:00:00 2022-09-01 00:00:00 5 [facility] History SDOH Food Worry 2022-09-01 00:00:00 2022-09-01 00:00:00 1 [facility] History SDOH Food Scarcity 2022-09-01 00:00:00 2022-09-01 00:00:00 1 [facility] History SDOH Transport Med 2022-09-01 00:00:00 2022-09-01 00:00:00 2 [facility] History SDOH Transport Non-Med 2022-09-01 00:00:00 2022-09-01 00:00:00 2 [facility] History SDOH Housing Unable to Pay 2022-09-01 00:00:00 2022-09-01 00:00:00 2 [facility] History SDOH Housing Places Lived 2022-09-01 00:00:00 2022-09-01 00:00:00 1 [facility] History SDOH Housing Homeless Last Year 2022-09-01 00:00:00 2022-09-01 00:00:00 2 [facility] Tobacco use and exposure 2022-07-20 00:00:00 2022-07-20 00:00:00 Smokeless tobacco non-user [facility] Sex assigned at 1955 00:00:00 1955 00:00:00 [facility] Smoking Status Start Date Stop Date Source Never smoked tobacco [facility] Medications Ordered Medication Name Filled Medication Name Start Date Stop Date Current Medication? Ordering Clinician Indication Dosage Frequency Signature (SIG) Comments Components Source amLODIPine 10 mg tablet 09-19 00:00: 00 10-20 04:59 :00 No [id number] 10mg Take 1 tablet by mouth in the morning for 30 days. [facility] spironolact one 25 mg tablet 09-19 00:00: 00 10-20 04:59 :00 No [id number] 25mg Take 1 tablet by mouth in the morning for 30 days. [facility] KCL (KLOR-CON M20) tablet 40 mEq 09-18 15:45: 00 09-18 15:21 :00 No 40meq 40 mEq, Oral, ONCE, 1 dose, On Tue09/19/23 at 1045, Routine [facility] enoxaparin (LOVENOX) injection 40 mg 09-18 14:00: 00 Yes 40mg 40 mg, Subcutaneo us, DAILY, First dose (after last modificati on) on Tue09/19/23 at 0900, Until Discontinu ed, Routine [facility] metFORMIN (GLUCOPHAGE ) tablet 500 mg 09-18 13:00: 00 Yes 500mg 500 mg, Oral, BID MEALS, First dose on 09/19/23 at 0800, Until Discontinu ed, Routine [facility] insulin glargine (LANTUS U-100) injection 10 Units 09-18 02:00: 00 Yes 10U 10 Units, Subcutaneo us, QHS, First dose (after last modificati on) on 09/18/23 at 2100, Until Discontinu ed [facility] atorvastati n (LIPITOR) tablet 40 mg 09-18 02:00: 00 Yes 40mg 40 mg, Oral, QHS, First dose on Tue09/18/23 at 2100, Until Discontinu ed, Routine [facility] losartan 50 mg tablet 09-18 00:00: 00 10-19 04:59 :00 No [id number] 50mg Take 1 tablet by mouth in the morning and 1 tablet in the evening. Do all this for 30 days. [facility] empaglifloz in (JARDIANCE) 10 mg tablet 09-18 00:00: 00 10-19 04:59 :00 No [id number] 10mg Take 1 tablet by mouth in the morning for 30 days. [facility] furosemide 40 mg tablet 09-18 00:00: 00 10-19 04:59 :00 No [id number] 40mg Take 1 tablet by mouth in the morning for 30 days. [facility] Sliding Scale Insulin-Reg ular 09-17 17:15: 00 Yes Subcutaneo us, AC+HS, First dose (after last modificati on) on Tue09/18/23 at 1215, Until Discontinu ed, Routine [facility] glucagon (GLUCAGEN DIAGNOSTIC KIT) injection 1 mg 09-17 17:01: 15 Yes 1mg 1 mg, Intramuscu lar, PRN, Starting on Tue09/18/23 at 1201, Until Discontinu ed, LEAH, Blood Glucose < or = 70 mg/dL and patient is NPO, unable to swallow or has mental changes. [facility] dextrose 50 % in water (D50W) injection 25 mL 09-17 17:01: 15 Yes 25mL 25 mL, Slow IV Push, PRN, Starting on 09/18/23 at 1201, Until Discontinu ed, LEAH, Blood Glucose < or = 70 mg/dL and patient is NPO, unable to swallow or has mental status changes. [facility] carvediloL 25 mg tablet 09-17 14:30: 00 Yes 25mg Take 1 tablet by mouth in the morning and 1 tablet in the evening. Take with meals. [facility] polyethylen e glycol 3350 powder 17 g 09-17 14:30: 00 Yes 17g 17 g, Oral, DAILY, First dose on 09/18/23 at 0930, Until Discontinu ed, Routine [facility] docusate (COLACE) capsule 100 mg 09-17 14:30: 00 Yes 100mg 100 mg, Oral, BID, First dose on 09/18/23 at 0930, Until Discontinu ed, Routine [facility] tamsulosin (FLOMAX) capsule 0.4 mg 09-17 14:00: 00 Yes .4mg 0.4 mg, Oral, DAILY, First dose on 09/18/23 at 0900, Until Discontinu ed, Routine [facility] finasteride (PROSCAR) tablet 5 mg 09-17 14:00: 00 Yes 5mg 5 mg, Oral, DAILY, First dose on 09/18/23 at 0900, Until Discontinu ed, Routine [facility] clopidogreL (PLAVIX) 75 mg tablet 75 mg 09-17 14:00: 00 Yes 75mg 75 mg, Oral, DAILY, First dose on 09/18/23 at 0900, Until Discontinu ed, [facility]ine [facility] citalopram (CELEXA) tablet 20 mg 09-17 14:00: 00 Yes 20mg 20 mg, Oral, DAILY, First dose on 09/18/23 at 0900, Until Discontinu ed, Routine [facility] aspirin EC tablet 81 mg 09-17 14:00: 00 Yes 81mg 81 mg, Oral, DAILY, First dose on [place] 09/18/23 at 0900, Until Discontinu ed [facility] ondansetron (ZOFRAN-ODT ) disintegrat ing tablet 4 mg 09-17 13:15: 59 Yes 4mg [facility] benzonatate (TESSALON PERLES) capsule 100 mg 09-17 13:15: 59 Yes 100mg [facility] furosemide (LASIX) injection 40 mg 09-17 13:00: 00 Yes 40mg 40 mg, Slow IV Push, Q12H, First dose on [place] 09/18/23 at 0800, Until Discontinu ed, Routine [facility] atorvastati n (LIPITOR) tablet 40 mg 09-17 02:00: 00 09-17 13:16 :32 No 40mg 40 mg, Oral, QHS, First dose on [facility] 09/17/23 at 2100, Until Discontinu ed, Routine [facility] amLODIPine (NORVASC) tablet 10 mg 09-17 01:00: 00 Yes 10mg 10 mg, Oral, DAILY, First dose on [facility] 09/17/23 at 1999, Until Discontinu ed, Routine [facility] losartan (COZAAR) tablet 50 mg 09-17 01:00: 00 Yes 50mg 50 mg, Oral, BID, First dose on [facility] 09/17/23 at 1999, Until Discontinu ed, Routine [facility] hydralAZINE (APRESOLINE ) injection 10 mg 09-17 00:52: 08 Yes 10mg 10 mg, Slow IV Push, Q4HPRN, Starting on 09/17/23 at 1952, Until Discontinu ed, Routine, DBP=>100; SBP=>180 [facility] insulin lispro (human) (HumaLOG U-100) injection 5 Units 09-16 22:00: 00 09-17 13:17 :06 No 5U 5 Units, Subcutaneo us, TID MEALS, First dose on Tue09/17/23 at 1700, Until Discontinu ed, Routine [facility] enoxaparin (LOVENOX) injection 40 mg 09-16 22:00: 00 09-17 13:07 :22 No 40mg 40 mg, Subcutaneo us, DAILY, First dose on Tue09/17/23 at 1700, Until Discontinu ed, Routine [facility] aspirin E.C. (ECOTRIN) tablet 325 mg 09-16 20:00: 00 09-16 20:30 :00 No 325mg 325 mg, Oral, ONCE, 1 dose, On Tue09/17/23 at 1500, Routine [facility] furosemide (LASIX) injection 40 mg 09-16 19:45: 00 09-16 20:27 :00 No 40mg 40 mg, Slow IV Push, ONCE, 1 dose, On Tue09/17/23 at 1445, Routine [facility] spironolact one (ALDACTONE) tablet 25 mg 09-16 19:00: 00 Yes 25mg 25 mg, Oral, DAILY, First dose on Tue09/17/23 at 1400, Until Discontinu ed, Routine [facility] acetaminoph en (TYLENOL) tablet 650 mg 09-16 18:45: 56 Yes 650mg 650 mg, Oral, Q6HPRN, Starting on Tue09/17/23 at 1345, Until Discontinu ed, Routine, Pain (scale 1-3) [facility] iopamidol (ISOVUE 370-500 mL) injection 90 mL 09-16 17:00: 00 09-16 17:15 :00 No [id number] 90mL 90 mL, Intravenou s, ONCE, 1 dose, On Tue09/17/23 at 1215, Routine [facility] cefdinir (OMNICEF) capsule 300 mg 09-05 23:31: 00 09-06 00:18 :00 No 300mg 300 mg, Oral, ONCE, 1 dose, On Tue09/06/23 at 1845, LEAH
Re ason for Anti-Infec tive: Documented Infection< br>Documen marsha Infection Site: Urine
D uration of Therapy: Once (ED) [facility] cefdinir 300 mg capsule 09-05 00:00: 00 09-16 04:59 :00 No [id number] 300mg Take 1 capsule by mouth in the morning and 1 capsule in the evening. Do all this for 10 days. [facility] NaCl 0.9% (NS) bolus infusion 500 mL 05-14 21:30: 00 05-14 21:22 :00 No 500mL at 999 mL/hr, 500 mL, IV Infusion, ONCE, 1 dose, On 05/14/23 at 1530, LEAH [facility] aspirin tablet 325 mg 05-14 20:45: 00 05-14 21:02 :00 No 325mg 325 mg, Oral, ONCE, 1 dose, On 05/14/23 at 1445, STAT [facility] aspirin 81 mg chewable tablet 2022-05 00:00: 00 05-22 05:59 :00 No [id number] 81mg Take 1 tablet by mouth in the morning for 30 days. [facility] spironolact one 25 mg tablet 2022-05 00:00: 00 05-22 05:59 :00 No [id number] 25mg Take 1 tablet by mouth in the morning for 30 days. [facility] metFORMIN 1,000 mg tablet 2022-05 17:22: 10 Yes 1000mg Take 1 tablet by mouth in the morning and 1 tablet in the evening. Take with meals. [facility] insulin degludec (TRESIBA FLEXTOUCH U-100 SC) 2022-05 17:22: 10 Yes 36U inject 36 Units under the skin at bedtime. [facility] metFORMIN 1,000 mg tablet 2022-05 16:40: 48 Yes 1000mg Take 1 tablet by mouth in the morning and 1 tablet in the evening. Take with meals. [facility] insulin degludec (TRESIBA FLEXTOUCH U-100 SC) 2022-05 16:40: 48 Yes 36U inject 36 Units under the skin at bedtime. [facility] aspirin chewable tablet 81 mg 2022-05 15:00: 00 Yes 81mg 81 mg, Oral, DAILY, First dose on Tue04/20/23 at 0900, Until Discontinu ed, Routine [facility] carvediloL (COREG) tablet 12.5 mg 2022-05 14:00: 00 Yes 12.5mg 12.5 mg, Oral, BID MEALS, First dose (after last modificati on) on Tue04/20/23 at 0800, Until Discontinu ed, Routine [facility] magnesium oxide (MAG-OX 400) tablet 400 mg 2022-05 02:00: 00 04-21 13:59 :00 No 400mg 400 mg, Oral, BID, 3 doses, First dose on Tue04/19/23 at 1999, Last dose on Tue04/20/23 at 1999, Routine [facility] KCL (KLOR-CON M20) tablet 40 mEq 2022-05 01:00: 00 04-20 01:52 :00 No 40meq 40 mEq, Oral, ONCE, 1 dose, On Tue04/19/23 at 1900, Routine [facility] carvediloL 12.5 mg tablet 2022-05 00:00: 00 05-21 05:59 :00 No [id number] 12.5mg Take 1 tablet by mouth in the morning and 1 tablet in the evening. Take with meals. Do all this for 30 days. [facility] levoFLOXaci n 750 mg tablet 2022-05 00:00: 00 04-23 05:59 :00 No [id number] 750mg Take 1 tablet by mouth every 24 (twenty-fo ur) hours for 2 days. [facility] ipratropium -albuteroL (DUONEB) 0.5 mg-3 mg(2.5 mg base)/3 mL nebulizer solution 3 mL 2022-05 22:00: 00 Yes 3mL 3 mL, Inhalation , QID, First dose (after last modificati on) on Tue04/19/23 at 1600, Until Discontinu ed, Routine [facility] spironolact one (ALDACTONE) tablet 25 mg 2022-05 15:00: 00 Yes 25mg 25 mg, Oral, DAILY, First dose on Tue04/19/23 at 0900, Until Discontinu ed, Routine [facility] aspirin tablet 325 mg 2022-05 15:00: 00 04-19 14:33 :00 No 325mg 325 mg, Oral, ONCE, 1 dose, On Tue04/19/23 at 0900, Routine [facility] zolpidem (AMBIEN) tablet 5 mg 2022-05 03:49: 09 Yes 5mg 5 mg, Oral, QHSPRN, Starting on Tue04/18/23 at 2149, Until Discontinu ed, Routine, Insomnia [facility] losartan (COZAAR) tablet 50 mg 2022-05 02:00: 00 Yes 50mg 50 mg, Oral, BID, First dose (after last modificati on) on Tue04/18/23 at 2000, Until Discontinu ed, Routine [facility] furosemide (LASIX) injection 20 mg 2022-05 02:00: 00 Yes 20mg 20 mg, Slow IV Push, Q12H, First dose on Tue04/18/23 at 2000, Until Discontinu ed, Routine [facility] sulfur hexafluorid e microsphr (LUMASON) injection 5 mL 2022-05 16:30: 00 04-18 16:30 :00 No [id number] 5mL 5 mL, Intravenou s, ONCE, 1 dose, On Tue04/18/23 at 1030, Routine
membership advisor approving Restricted medication : GARY HOWARD [facility] tamsulosin (FLOMAX) capsule 0.4 mg 2022-05 15:00: 00 Yes .4mg 0.4 mg, Oral, DAILY, First dose on Tue04/18/23 at 0900, Until Discontinu ed, Routine [facility] finasteride (PROSCAR) tablet 5 mg 2022-05 15:00: 00 Yes 5mg 5 mg, Oral, DAILY, First dose on Tue04/18/23 at 0900, Until Discontinu ed, Routine [facility] clopidogreL (PLAVIX) 75 mg tablet 75 mg 2022-05 15:00: 00 Yes 75mg 75 mg, Oral, DAILY, First dose on Tue04/18/23 at 0900, Until Discontinu ed, Routine [facility] citalopram (CELEXA) tablet 20 mg 2022-05 15:00: 00 Yes 20mg 20 mg, Oral, DAILY, First dose on Tue04/18/23 at 0900, Until Discontinu ed, Routine [facility] azithromyci n (ZITHROMAX) tablet 500 mg 2022-05 15:00: 00 04-19 14:33 :00 No 500mg 500 mg, Oral, DAILY, 2 doses, First dose on Tue04/18/23 at 0900, Last dose on Tue04/19/23 at 0900, Routine
Reason for Anti-Infec tive: Documented Infection< br>Documen marsah Infection Site: Respirator y
Durat ion of Therapy: Other (see Comments) [facility] losartan (COZAAR) tablet 50 mg 2022-05 15:00: 00 04-18 23:11 :44 No 50mg 50 mg, Oral, DAILY, First dose on Tue04/18/23 at 0900, Until Discontinu ed, Routine [facility] hydroCHLORO thiazide (ESIDRIX) tablet 12.5 mg 2022-05 15:00: 00 04-18 18:19 :57 No 12.5mg 12.5 mg, Oral, DAILY, First dose on Tue04/18/23 at 0900, Until Discontinu ed, Routine [facility] insulin lispro (human) (HumaLOG U-100) injection 5 Units 2022-05 14:00: 00 Yes 5U 5 Units, Subcutaneo us, TID MEALS, First dose on Tue04/18/23 at 0800, Until Discontinu ed, Routine [facility] carvediloL (COREG) tablet 6.25 mg 2022-05 14:00: 00 04-20 12:46 :27 No 6.25mg 6.25 mg, Oral, BID MEALS, First dose on Tue04/18/23 at 0800, Until Discontinu ed, Routine [facility] dexamethaso ne (DECADRON PHOSPHATE) injection 2 mg 2022-05 14:00: 00 04-18 18:17 :25 No 2mg 2 mg, Intravenou s, Q12H, First dose (after last reorder) on Tue04/18/23 at 0800, Until Discontinu ed, 1 mL [facility] guaiFENesin 100 mg/5 mL solution 200 mg 2022-05 06:00: 00 Yes 200mg 200 mg, Oral, Q6H, First dose on Tue04/18/23 at 0000, Until Discontinu ed, Routine [facility] iopamidol (ISOVUE 370-500 mL) injection 85 mL 2022-05 06:00: 00 04-18 06:00 :00 No [id number] 85mL 85 mL, Intravenou s, ONCE, 1 dose, On Tue04/18/23 at 0000, Routine [facility] Sliding Scale Insulin - Lispro (HumaLOG) 2022-05 03:00: 00 Yes Subcutaneo us, TID MEALS+HS, First dose on 04/17/23 at 2100, Until Discontinu ed, Routine [facility] insulin glargine (LANTUS U-100) injection 36 Units 2022-05 03:00: 00 Yes 36U 36 Units, Subcutaneo us, QHS, First dose on 04/17/23 at 2100, Until Discontinu ed, Routine [facility] atorvastati n (LIPITOR) tablet 40 mg 2022-05 03:00: 00 Yes 40mg 40 mg, Oral, QHS, First dose on 12/10/23 at 2100, Until Discontinu ed, [facility] enox[facility] (LOVENOX) injection 80 mg 2022-05 02:00: 00 Yes 1mg/kg 80 mg (rounded from 81.5 mg = 1 mg/kg ?81.5 kg), Subcutaneo us, Q12H, First dose on Tue04/17/23 at 2000, Until Discontinu ed, [facility] ipratropium -albuteroL (DUONEB) 0.5 mg-3 mg(2.5 mg base)/3 mL nebulizer solution 3 mL 2022-05 02:00: 00 04-19 21:42 :16 No 3mL 3 mL, Inhalation , Q4H, First dose on Tue04/17/23 at 2000, Until Discontinu ed, Routine [facility] glucagon (GLUCAGEN DIAGNOSTIC KIT) injection 1 mg 2022-05 00:27: 56 Yes 1mg 1 mg, Intramuscu lar, PRN, Starting on Tue04/17/23 at 1827, Until Discontinu ed, LEAH, Blood Glucose < or = 70 mg/dL and patient is NPO, unable to swallow or has mental changes. [facility] dextrose 50 % in water (D50W) injection 25 mL 2022-05 00:27: 55 Yes 25mL 25 mL, Slow IV Push, PRN, Starting on Tue04/17/23 at 1827, Until Discontinu ed, LEAH, Blood Glucose < or = 70 mg/dL and patient is NPO, unable to swallow or has mental status changes. [facility] ondansetron (ZOFRAN (PF)) injection 4 mg 2022-05 00:27: 50 Yes 4mg 4 mg, Slow IV Push, Q6HPRN, Starting on Tue04/17/23 at 1827, Until Discontinu ed, Routine, Nausea and Vomiting (N/V) [facility] morpHINE (4 mg/mL) injection 4 mg 2022-05 00:27: 47 04-19 00:26 :47 No 4mg 4 mg, Slow IV Push, Q4HPRN, Starting on Tue04/17/23 at 1827, Until 04/18/23 at 1826, Routine, Pain (scale 7-10) [facility] HYDROcodone -acetaminop hen (NORCO 5) 5-325 mg tablet 1 tablet 2022-05 00:27: 45 04-20 00:26 :45 No 1{tbl} 1 tablet, Oral, Q6HPRN, Starting on Tue04/17/23 at 1827, Until Tu04/19/23 at 1826, Routine, Pain (scale 4-6) [facility] acetaminoph en (TYLENOL) tablet 650 mg 2022-05 00:27: 38 Yes 650mg 650 mg, Oral, Q6HPRN, Starting on Tue04/17/23 at 1827, Until Discontinu ed, Routine, Pain (scale 1-3), Temp > 38 C [facility] benzonatate (TESSALON PERLES) capsule 100 mg 2022-05 00:23: 09 Yes 100mg 100 mg, Oral, TIDPRN, Starting on Tue04/17/23 at 1823, Until Discontinu ed, Routine, Cough [facility] ipratropium -albuteroL (DUONEB) 0.5 mg-3 mg(2.5 mg base)/3 mL nebulizer solution 3 mL 2022-05 00:15: 00 04-17 23:17 :00 No 3mL 3 mL, Inhalation , ONCE NOW, 1 dose, On Tue04/17/23 at 1815, Routine [facility] azithromyci n (ZITHROMAX) 500 mg in NaCl 0.9% (NS) 250 mL VIAL-MATE IV piggyback 2022-05 23:00: 00 04-18 00:01 :00 No 500mg 500 mg, IV Piggyback, ONCE, 1 dose, On Tue04/17/23 at 1700, Administer over 60 Minutes, 250 mL
Reas on for Anti-Infec tive: Documented Infection< br>Documen marsha Infection Site: Respirator y
Durat ion of Therapy: Other (see Comments) [facility] cefTRIAXone (ROCEPHIN) 1,000 mg in NaCl 0.9% (NS) 100 mL MINI-BAG 2022-05 22:15: 00 04-17 22:50 :00 No 1000mg 1,000 mg, IV Piggyback, ONCE, 1 dose, On 04/17/23 at 1615, Administer over 30 Minutes, 100 mL
Reas on for Anti-Infec tive: Documented Infection< br>Documen marsha Infection Site: Respirator y
Durat ion of Therapy: Other (see Comments) [facility] ipratropium -albuteroL (DUONEB) 0.5 mg-3 mg(2.5 mg base)/3 mL nebulizer solution 6 mL 2022-05 21:30: 00 04-17 20:31 :00 No 6mL 6 mL, Inhalation , ONCE NOW, 1 dose, On 04/17/23 at 1530, Routine [facility] dextrometho rphan-guaif enesin (ROBITUSSIN DM) 10-100 mg/5 mL solution 10 mL 2022-05 21:00: 00 04-17 20:06 :00 No 10mL 10 mL, Oral, ONCE NOW, 1 dose, On 04/17/23 at 1500, Routine [facility] dexamethaso ne sod phos PF injection 10 mg 2022-05 20:30: 00 04-17 20:44 :00 No 10mg 10 mg, Intramuscu lar, ONCE, 1 dose, On 04/17/23 at 1430, 1 mL [facility] benzonatate 100 mg capsule 2022-05 00:00: 00 Yes [id number] 100mg Take 1 capsule by mouth 3 (three) times daily as needed for Cough. [facility] ondansetron 4 mg disintegrat ing tablet 2022-05 00:00: 00 Yes [id number] 4mg Take 1 tablet by mouth every 4 (four) hours as needed for Nausea and Vomiting (N/V). [facility] HYDROcodone -acetaminop hen 5-325 mg tablet 2022-05 2-09 00:00: 00 04-24 05:59 :00 No [id number] 1{tbl} Take 1 tablet by mouth every 4 (four) hours as needed for Pain (scale 4-6) for up to 7 days. Indication s: acute pain [facility] amoxicillin -clavulanat e 875-125 mg per tablet 01-09 00:00: 00 04-20 00:00 :00 No [id number] 1{tbl} Take 1 tablet by mouth every 12 (twelve) hours. [facility] sitaGLIPtin (JANUVIA) 25 mg tablet 12-30 09:30: 52 12-30 00:00 :00 No 25mg Take 25 mg by mouth daily. [facility] naproxen (NAPROSYN) tablet 500 mg 10-03 03:57: 00 10-03 03:58 :00 No 500mg 500 mg, Oral, ONCE, 1 dose, On 10/02/22 at 2300, Routine [facility] acetaminoph en-codeine 300-30 mg tablet 10-03 00:00: 00 09-18 00:00 :00 No [id number] 1{tbl} Take 1 tablet by mouth every 4 (four) hours as needed for Pain (scale 4-6). Indication s: acute pain [facility] naproxen (NAPROSYN) 500 mg tablet 10-03 00:00: 00 04-17 00:00 :00 No [id number] 500mg Take 1 tablet by mouth in the morning and 1 tablet in the evening. Take with meals. [facility] metFORMIN 1,000 mg tablet 09-17 12:34: 50 Yes 1000mg Take 1 tablet by mouth in the morning and 1 tablet in the evening. Take with meals. [facility] iopamidol (ISOVUE 370-500 mL) injection 100 mL 09-02 19:00: 00 09-02 19:00 :00 No [id number] 100mL 100 mL, Intravenou s, ONCE, 1 dose, On Tue09/02/22 at 1400, Routine [facility] aspirin tablet 325 mg 09-02 18:30: 00 09-02 18:12 :00 No 325mg 325 mg, Oral, ONCE NOW, 1 dose, On Tue09/02/22 at 1330, LEAH [facility] NaCl 0.9% (NS) injection 5 mL 09-02 17:28: 53 Yes 5mL 5 mL, Slow IV Push, PRN - SEE INSTRUCTIO NS, Starting on Tue09/02/22 at 1228, Until Discontinu ed, 10 mL [facility] clopidogreL (PLAVIX) 300 mg tablet 300 mg 09-02 14:00: 00 09-03 13:59 :00 No 300mg 300 mg, Oral, DAILY, 1 dose, First dose on Tue09/02/22 at 0900, Routine [facility] clopidogreL 75 mg tablet 09-02 00:00: 00 Yes [id number] 75mg Take 1 tablet by mouth in the morning. [facility] tamsulosin (FLOMAX) capsule 0.4 mg 09-01 21:30: 00 Yes .4mg 0.4 mg, Oral, DAILY, First dose on Tue09/01/22 at 1630, Until Discontinu ed, Routine [facility] hydralAZINE (APRESOLINE ) injection 5 mg 09-01 21:25: 00 09-01 22:05 :00 No 5mg 5 mg, Slow IV Push, ONCE, 1 dose, On Tue09/01/22 at 1630, STAT [facility] metFORMIN 1,000 mg tablet 09-01 19:54: 17 Yes 1000mg Take 1 tablet by mouth in the morning and 1 tablet in the evening. Take with meals. [facility] sitaGLIPtin (JANUVIA) 25 mg tablet 09-01 19:54: 17 Yes 25mg Take 25 mg by mouth daily. [facility] hydroCHLORO thiazide (ESIDRIX) capsule 12.5 mg 09-01 14:00: 00 Yes 12.5mg 12.5 mg, Oral, DAILY, First dose on Tue09/01/22 at 0900, Until Discontinu ed, [facility] clopid[facility]reL (PLAVIX) 75 mg tablet 75 mg 09-01 14:00: 00 Yes 75mg 75 mg, Oral, DAILY, First dose on Tue09/01/22 at 0900, Until Discontinu ed, Routine [facility] aspirin chewable tablet 81 mg 09-01 14:00: 00 Yes 81mg 81 mg, Oral, DAILY, First dose on Tue09/01/22 at 0900, Until Discontinu ed, Routine [facility] INSULIN NPL/INSULIN LISPRO (HUMALOG MIX 75-25 SC) 09-01 13:23: 24 09-01 00:00 :00 No inject under the skin. [facility] LOSARTAN POTASSIUM (LOSARTAN ORAL) 09-01 13:23: 24 09-01 00:00 :00 No Take by mouth. [facility] KCL (KLOR-CON M20) tablet 40 mEq 09-01 13:15: 00 09-01 14:02 :00 No 40meq 40 mEq, Oral, ONCE, 1 dose, On Tue09/01/22 at 0815, Routine [facility] carvediloL (COREG) tablet 6.25 mg 09-01 13:00: 00 Yes 6.25mg 6.25 mg, Oral, BID MEALS, First dose on Tue09/01/22 at 0800, Until Discontinu ed, Routine [facility] losartan (COZAAR) tablet 25 mg 09-01 12:30: 00 Yes 25mg 25 mg, Oral, DAILY, First dose on Tue09/01/22 at 0730, Until Discontinu ed [facility] Sliding Scale Insulin - Lispro (HumaLOG) + Fsbg Testing 09-01 02:00: 00 Yes Subcutaneo us, TID MEALS+HS, First dose on Tue08/31/22 at 2100, Until Discontinu ed, Routine [facility] citalopram (CELEXA) tablet 10 mg 09-01 02:00: 00 Yes 10mg 10 mg, Oral, QHS, First dose on Tue08/31/22 at 2100, Until Discontinu ed, Routine [facility] atorvastati n (LIPITOR) tablet 40 mg 09-01 02:00: 00 Yes 40mg 40 mg, Oral, QHS, First dose on Tue08/31/22 at 2100, Until Discontinu ed, Routine [facility] atorvastati n 40 mg tablet 09-01 00:00: 00 Yes [id number] 40mg Take 1 tablet by mouth at bedtime. [facility] glucagon (GLUCAGEN DIAGNOSTIC KIT) injection 1 mg 08-31 22:00: 24 Yes 1mg 1 mg, Intramuscu lar, PRN, Starting on Tue08/31/22 at 1700, Until Discontinu ed, LEAH, Blood Glucose < or = 70 mg/dL and patient is NPO, unable to swallow or has mental changes. [facility] dextrose 50 % in water (D50W) injection 25 mL 08-31 22:00: 24 Yes 25mL 25 mL, Slow IV Push, PRN, Starting on Tue08/31/22 at 1700, Until Discontinu ed, LEAH, Blood Glucose < or = 70 mg/dL and patient is NPO, unable to swallow or has mental status changes. [facility] enoxaparin (LOVENOX) injection 40 mg 08-31 22:00: 00 Yes 40mg 40 mg, Subcutaneo us, DAILY, First dose on Tue08/31/22 at 1700, Until Discontinu ed, Routine [facility] insulin lispro (human) (HumaLOG U-100) injection 10 Units 08-31 21:30: 00 Yes 10U 10 Units, Subcutaneo us, TIDAC, First dose on Tue08/31/22 at 1630, Until Discontinu ed [facility] NaCl 0.9% (NS) IV infusion 1,000 mL 08-31 20:45: 00 Yes 1000mL at 50 mL/hr, IV Infusion, CONTINUOUS , Starting on Tue08/31/22 at 1545, Until Discontinu ed, Routine
To keep vein open.
[facility] glucagon (GLUCAGEN DIAGNOSTIC KIT) injection 1 mg 08-31 20:31: 37 Yes 1mg 1 mg, Intramuscu lar, PRN, Starting on Tue08/31/22 at 1531, Until Discontinu ed, LEAH, blood glucose is < or = 70 mg/dL and patient is unable to swallow or has mental status changes [facility] acetaminoph en (TYLENOL) tablet 650 mg 08-31 20:31: 37 Yes 650mg 650 mg, Oral, Q6HPRN, Starting on Tue08/31/22 at 1531, Until Discontinu ed, Routine, Pain (scale 1-3), Pain (scale 4-6), Temp > 37.5 C [facility] labetaloL (NORMODYNE) injection 10 mg 08-31 20:31: 37 Yes 10mg 10 mg, Slow IV Push, [id number], 5 doses, Starting on Tue08/31/22 at 1531, Until Discontinu ed, Routine, Hypertensi on SBP> 220 [facility] NaCl 0.9% (NS) bolus infusion 1,000 mL 08-31 19:00: 00 08-31 18:23 :00 No 1000mL at 75 mL/hr, 1,000 mL, IV Infusion, ONCE, 1 dose, On Tue08/31/22 at 1400, LEAH [facility] clopidogreL (PLAVIX) 75 mg tablet 75 mg 08-31 19:00: 00 08-31 18:23 :00 No 75mg 75 mg, Oral, ONCE, 1 dose, On Tue08/31/22 at 1400, Routine [facility] aspirin tablet 325 mg 08-31 19:00: 00 08-31 18:23 :00 No 325mg 325 mg, Oral, ONCE, 1 dose, On Tue08/31/22 at 1400, Routine [facility] iopamidol (ISOVUE 370-500 mL) injection 99 mL 08-31 15:35: 00 08-31 15:35 :00 No [id number] 99mL 99 mL, Intravenou s, ONCE, 1 dose, On Tue08/31/22 at 1045, Routine [facility] NaCl 0.9% (NS) injection 5 mL 08-31 15:24: 37 Yes 5mL 5 mL, Slow IV Push, PRN - SEE INSTRUCTIO NS, Starting on Tue08/31/22 at 1024, Until Discontinu ed, 10 mL [facility] insulin degludec (TRESIBA FLEXTOUCH U-100 SC) 07-21 16:17: 21 Yes 36U inject 36 Units under the skin at bedtime. [facility] aspirin (ASPIR-81 ORAL) 07-21 16:17: 21 Yes 81mg Take 81 mg by mouth in the morning. [facility] metFORMIN 1,000 mg tablet 07-21 16:17: 21 Yes 1000mg Take 1 tablet by mouth in the morning and 1 tablet in the evening. Take with meals. [facility] sitaGLIPtin (JANUVIA) 25 mg tablet 07-21 16:17: 21 Yes 25mg Take 25 mg by mouth daily. [facility] aspirin chewable tablet 81 mg 07-21 14:00: 00 Yes 81mg 81 mg, Oral, DAILY, First dose (after last modificati on) on Tue07/21/22 at 0900, Until Discontinu ed, Routine [facility] amLODIPine (NORVASC) tablet 10 mg 07-21 14:00: 00 Yes 10mg 10 mg, Oral, DAILY, First dose on Tue07/21/22 at 0900, Until Discontinu ed, Routine [facility] finasteride (PROSCAR) tablet 5 mg 07-21 14:00: 00 Yes 5mg 5 mg, Oral, DAILY, First dose on Tue07/21/22 at 0900, Until Discontinu ed, Routine [facility] losartan (COZAAR) tablet 25 mg 07-21 14:00: 00 Yes 25mg 25 mg, Oral, DAILY, First dose on Tue07/21/22 at 0900, Until Discontinu ed [facility] tamsulosin (FLOMAX) capsule 0.4 mg 07-21 14:00: 00 Yes .4mg 0.4 mg, Oral, DAILY, First dose on Tue07/21/22 at 0900, Until Discontinu ed, Routine [facility] magnesium sulfate in water 4 gram/50 mL (8 %) IV Piggyback 4 g 07-21 13:45: 00 07-21 16:05 :00 No 4g 4 g, IV Piggyback, at 25 mL/hr Administer over 120 Minutes, ONCE, 1 dose, On Tue07/21/22 at 0845, Routine [facility] atorvastati n (LIPITOR) tablet 40 mg 07-21 02:00: 00 Yes 40mg 40 mg, Oral, QHS, First dose (after last modificati on) on Tue07/20/22 at 2100, Until Discontinu ed, [facility] glargine (LANTUS U-100) injection 30 Units 07-21 02:00: 00 Yes 30U 30 Units, Subcutaneo us, QHS, First dose on Tue07/20/22 at 2100, Until Discontinu ed, Routine [facility] heparin (porcine) injection 5,000 Units 07-21 01:00: 00 Yes 5000U 5,000 Units, Subcutaneo us, Q12H, First dose on Tue07/20/22 at 2000, Until Discontinu ed, Routine [facility] atorvast[facility] 40 mg tablet 07-21 00:00: 00 08-21 04:59 :00 No [id number] 40mg Take 1 tablet by mouth at bedtime for [address] [facility] Sliding Scale Insulin - Lispro (HumaLOG) + Fsbg Testing 07-20 22:00: 00 Yes Subcutaneo us, TID MEALS+HS, First dose on Tue07/20/22 at 1700, Until Discontinu ed, Routine [facility] carvediloL (COREG) tablet 6.25 mg 07-20 22:00: 00 Yes 6.25mg 6.25 mg, Oral, BID MEALS, First dose on Tue07/20/22 at 1700, Until Discontinu ed, Routine [facility] perflutren protein-A microsphr (OPTISON) injection 3 mL 07-20 21:30: 00 07-20 21:30 :00 No [id number] 3mL 3 mL, IV Push, ONCE, 1 dose, On Tue07/20/22 at 1630, Routine [facility] Saline Bubble Study 07-20 21:17: 39 Yes [id number] 6mL 6 mL, Injection, SEE-INSTRU CTIONS, Starting on Tue07/20/22 at 1617, Until Discontinu ed, Routine [facility] aspirin tablet 325 mg 07-20 20:30: 00 07-20 22:28 :00 No 325mg 325 mg, Oral, ONCE, 1 dose, On Tue07/20/22 at 1530, Routine [facility] dextrose 10% (D10W) bolus infusion 250 mL 07-20 19:08: 48 Yes 250mL 250 mL, IV Infusion, PRN - SEE INSTRUCTIO NS, Administer over 60 Minutes, Other, If blood glucose is < or = 70 mg/dL and patient is unable to swallow or has mental status changes, Starting on Tue07/20/22 at 1408
If blood glucose is < or = 70 mg/dL and patient is unable to swallow or has mental status changes (Give glucagon order if patient needs fluid restrictio n): IF IV access available: Dextrose 10%. 1. 125 mL (? bag) of D10W IV infusion - equivalent to 12.5 g dextrose 2. Blood glucose - draw blood glucose 15 minutes after D10W Administra tion. 3. If blood glucose is < 80 mg/dL, repeat.
[facility] glucagon (GLUCAGEN DIAGNOSTIC KIT) injection 1 mg 07-20 19:08: 45 Yes 1mg 1 mg, Intramuscu lar, PRN, Starting on Tue07/20/22 at 1408, Until Discontinu ed, LEAH, Blood Glucose < or = 70 mg/dL and patient is NPO, unable to swallow or has mental changes. [facility] labetaloL (NORMODYNE) injection 10 mg 07-20 18:36: 39 Yes 10mg 10 mg, Slow IV Push, [id number], 5 doses, Starting on Tue07/20/22 at 1336, Until Discontinu ed, Routine, Hypertensi on SBP> 220 [facility] iopamidol (ISOVUE 370-500 mL) injection 75 mL 07-20 13:52: 00 07-20 14:00 :00 No [id number] 75mL 75 mL, Intravenou s, ONCE, 1 dose, On Tue07/20/22 at 0900, Routine [facility] ibuprofen (IBU) tablet 600 mg 2021-05 006 01:45: 00 02-11 01:05 :00 No 600mg 600 mg, Oral, ONCE, 1 dose, On Tue02/10/22 at 2045, LEAH [facility] cephALEXin 500 mg tablet 2021-05 005 00:00: 00 02-18 04:59 :00 No [id number] 500mg Take 1 tablet by mouth in the morning and 1 tablet in the evening. Do all this for 7 days. [facility] INSULIN NPL/INSULIN LISPRO (HUMALOG MIX 75-25 SC) 07-08 14:49: 49 Yes inject under the skin. [facility] LOSARTAN POTASSIUM (LOSARTAN ORAL) 07-08 14:49: 49 Yes Take by mouth. [facility] metFORMIN 1,000 mg tablet 07-08 14:49: 49 Yes 1000mg Take 1,000 mg by mouth 2 (two) times daily with meals. [facility] sitaGLIPtin (JANUVIA) 25 mg tablet 07-08 14:49: 49 Yes 25mg Take 25 mg by mouth daily. [facility] insulin lispro 100 unit/mL pen injector 06-02 00:00: 00 Yes 5U 5 Units SEE-INSTRU CTIONS. 5U in AM, 5U noon, 5U prior to dinner [facility] insulin lispro 100 unit/mL pen injector 06-02 00:00: 00 09-18 00:00 :00 No 5U 5 Units SEE-INSTRU CTIONS. 5U in AM, 5U noon, 5U prior to dinner [facility] amlodipine- atorvastata tin 10-10 mg per tablet 05-10 00:00: 00 09-01 00:00 :00 No 1{tbl} Take 1 tablet by mouth in the morning. [facility] TRESIBA FLEXTOUCH U-200 200 unit/mL (3 mL) InPn 05-10 00:00: 00 09-01 00:00 :00 No [facility] JANUMET XR 50-1,000 mg per tablet 2020-05 00:00: 00 09-01 00:00 :00 No [facility] citalopram 20 mg tablet 2020-05 00:00: 00 Yes [facility] irbesartan- hydrochloro thiazide 300-12.5 mg per tablet 2020-05 00:00: 00 09-18 00:00 :00 No [facility] meclizine 12.5 mg tablet 2020-05 00:00: 00 12-30 00:00 :00 No [id number] 12.5mg Take 1 tablet by mouth 3 (three) times daily as needed for Dizziness. [facility] aspirin 81 mg chewable tablet 2020-05 00:00: 00 09-17 00:00 :00 No [id number] 81mg Take 1 tablet by mouth daily. [facility] tamsulosin 0.4 mg 24 hr capsule 2020-05 00:00: 00 Yes [facility] finasteride 5 mg tablet 2020-05 00:00: 00 Yes [facility] carvediloL 6.25 mg tablet 2020-05 00:00: 00 04-20 00:00 :00 No 6.25mg Take 1 tablet by mouth in the morning and 1 tablet in the evening. Take with meals. [facility] Immunizations Ordered Immunization Name Filled Immunization Name Date Status Comments Source TD, NOS 2022-02-10 00:00:00 Completed [facility] TD, NOS 2022-02-10 00:00:00 Completed [facility] TD, NOS 2022-02-10 00:00:00 Completed [facility] TD, NOS 2022-02-10 00:00:00 Completed [facility] TD, NOS 2022-02-10 00:00:00 Completed [facility] TD, NOS 2022-02-10 00:00:00 Completed [facility] TD, NOS 2022-02-10 00:00:00 Completed [facility] TD, NOS 2022-02-10 00:00:00 Completed [facility] TD, NOS 2022-02-10 00:00:00 Completed [facility] TD, NOS 2022-02-10 00:00:00 Completed [facility] TD, NOS 2022-02-10 00:00:00 Completed [facility] TD, NOS 2022-02-10 00:00:00 Completed [facility] TD, NOS 2022-02-10 00:00:00 Completed [facility] TD, NOS 2022-02-10 00:00:00 Completed [facility] TD, NOS 2022-02-10 00:00:00 Completed [facility] TD, NOS 2022-02-10 00:00:00 Completed [facility] Td 2022-02-10 00:00:00 Completed [facility] Td 2022-02-10 00:00:00 Completed [facility] TD, NOS 2022-02-10 00:00:00 Completed [facility] SARS-COV-2 COVID-19 MODERNA 12+ YRS VACCINE 2020-11-17 00:00:00 Completed [facility] SARS-COV-2 COVID-19 MODERNA 12+ YRS VACCINE 2020-11-17 00:00:00 Completed [facility] SARS-COV-2 COVID-19 MODERNA 12+ YRS VACCINE 2020-11-17 00:00:00 Completed [facility] SARS-COV-2 COVID-19 MODERNA 12+ YRS VACCINE 2020-11-17 00:00:00 Completed [facility] SARS-COV-2 COVID-19 MODERNA 12+ YRS VACCINE 2020-11-17 00:00:00 Completed [facility] SARS-COV-2 COVID-19 MODERNA 12+ YRS VACCINE 2020-11-17 00:00:00 Completed [facility] SARS-COV-2 COVID-19 MODERNA 12+ YRS VACCINE 2020-11-17 00:00:00 Completed [facility] SARS-COV-2 COVID-19 MODERNA 12+ YRS VACCINE 2020-11-17 00:00:00 Completed [facility] SARS-COV-2 COVID-19 MODERNA 12+ YRS VACCINE 2020-11-17 00:00:00 Completed [facility] SARS-COV-2 COVID-19 MODERNA 12+ YRS VACCINE 2020-11-17 00:00:00 Completed [facility] SARS-COV-2 COVID-19 MODERNA 12+ YRS VACCINE 2020-11-17 00:00:00 Completed [facility] SARS-COV-2 COVID-19 MODERNA 12+ YRS VACCINE 2020-11-17 00:00:00 Completed [facility] SARS-COV-2 COVID-19 MODERNA 12+ YRS VACCINE 2020-11-17 00:00:00 Completed [facility] SARS-COV-2 COVID-19 MODERNA 12+ YRS VACCINE 2020-11-17 00:00:00 Completed [facility] SARS-COV-2 COVID-19 MODERNA 12+ YRS VACCINE 2020-11-17 00:00:00 Completed [facility] SARS-COV-2 COVID-19 MODERNA 12+ YRS VACCINE 2020-11-17 00:00:00 Completed [facility] SARS-COV-2 COVID-19 MODERNA VACCINE 2020-11-17 00:00:00 Completed [facility] [place] SARS-COV-2 COVID-19 MODERNA 12+ YRS VACCINE 2020-11-17 00:00:00 Completed [facility] SARS-COV-2 COVID-19 MODERNA 12+ YRS VACCINE 2020-11-17 00:00:00 Completed [facility] SARS-COV-2 COVID-19 MODERNA 12+ YRS VACCINE 2020-11-17 00:00:00 Completed [facility] SARS-COV-2 COVID-19 MODERNA 12+ YRS VACCINE 2020-11-17 00:00:00 Completed [facility] SARS-COV-2 COVID-19 MODERNA 12+ YRS VACCINE 2020-09-16 00:00:00 Completed [facility] SARS-COV-2 COVID-19 MODERNA 12+ YRS VACCINE 2020-09-16 00:00:00 Completed [facility] SARS-COV-2 COVID-19 MODERNA 12+ YRS VACCINE 2020-09-16 00:00:00 Completed [facility] SARS-COV-2 COVID-19 MODERNA 12+ YRS VACCINE 2020-09-16 00:00:00 Completed [facility] SARS-COV-2 COVID-19 MODERNA 12+ YRS VACCINE 2020-09-16 00:00:00 Completed [facility] SARS-COV-2 COVID-19 MODERNA 12+ YRS VACCINE 2020-09-16 00:00:00 Completed [facility] SARS-COV-2 COVID-19 MODERNA 12+ YRS VACCINE 2020-09-16 00:00:00 Completed [facility] SARS-COV-2 COVID-19 MODERNA 12+ YRS VACCINE 2020-09-16 00:00:00 Completed [facility] SARS-COV-2 COVID-19 MODERNA 12+ YRS VACCINE 2020-09-16 00:00:00 Completed [facility] SARS-COV-2 COVID-19 MODERNA 12+ YRS VACCINE 2020-09-16 00:00:00 Completed [facility] SARS-COV-2 COVID-19 MODERNA 12+ YRS VACCINE 2020-09-16 00:00:00 Completed [facility] SARS-COV-2 COVID-19 MODERNA 12+ YRS VACCINE 2020-09-16 00:00:00 Completed [facility] SARS-COV-2 COVID-19 MODERNA 12+ YRS VACCINE 2020-09-16 00:00:00 Completed [facility] SARS-COV-2 COVID-19 MODERNA 12+ YRS VACCINE 2020-09-16 00:00:00 Completed [facility] SARS-COV-2 COVID-19 MODERNA 12+ YRS VACCINE 2020-09-16 00:00:00 Completed [facility] SARS-COV-2 COVID-19 MODERNA 12+ YRS VACCINE 2020-09-16 00:00:00 Completed [facility] SARS-COV-2 COVID-19 MODERNA VACCINE 2020-09-16 00:00:00 Completed [facility] SARS-COV-2 COVID-19 MODERNA 12+ YRS VACCINE 2020-09-16 00:00:00 Completed [facility] SARS-COV-2 COVID-19 MODERNA 12+ YRS VACCINE 2020-09-16 00:00:00 Completed [facility] SARS-COV-2 COVID-19 MODERNA 12+ YRS VACCINE 2020-09-16 00:00:00 Completed [facility] SARS-COV-2 COVID-19 MODERNA 12+ YRS VACCINE 2020-09-16 00:00:00 Completed [facility] SARS-COV-2 COVID-19 MODERNA 12+ YRS VACCINE Unknown Completed [facility] TD, NOS Unknown Completed [facility] SARS-COV-2 COVID-19 MODERNA 12+ YRS VACCINE Unknown Completed [facility] TD, NOS Unknown Completed [facility] SARS-COV-2 COVID-19 MODERNA 12+ YRS VACCINE Unknown Completed [facility] TD, NOS Unknown Completed [facility] SARS-COV-2 COVID-19 MODERNA 12+ YRS VACCINE Unknown Completed [facility] TD, NOS Unknown Completed [facility] SARS-COV-2 COVID-19 MODERNA 12+ YRS VACCINE Unknown Completed [facility] TD, NOS Unknown Completed [facility] SARS-COV-2 COVID-19 MODERNA 12+ YRS VACCINE Unknown Completed [facility] TD, NOS Unknown Completed [facility] SARS-COV-2 COVID-19 MODERNA 12+ YRS VACCINE Unknown Completed [facility] TD, NOS Unknown Completed [facility] SARS-COV-2 COVID-19 MODERNA 12+ YRS VACCINE Unknown Completed [facility] TD, NOS Unknown Completed [facility] Vital Signs Vital Name Observation Time Observation Value Comments S ource Systolic blood pressure 2023-09-19 16:14:00 125 mm[Hg] [facility] Diastolic blood pressure 2023-09-19 16:14:00 73 mm[Hg] [facility] Heart rate 2023-09-19 16:14:00 65 /min [facility] Body temperature 2023-09-19 16:14:00 36.22 Jena [facility] Respiratory rate 2023-09-19 16:14:00 17 /min [facility] Oxygen saturation in Arterial blood by Pulse oximetry 2023-09-19 16:14:00 97 /min [facility] Body weight 2023-09-19 09:25:00 75.479 kg [facility] BMI 2023-09-19 09:25:00 26.06 kg/m2 [facility] Body height 2023-09-17 22:31:00 170.2 cm [facility] Systolic blood pressure 2023-09-07 00:19:07 155 mm[Hg] [facility] Diastolic blood pressure 2023-09-07 00:19:07 70 mm[Hg] [facility] Heart rate 2023-09-07 00:19:07 71 /min [facility] Respiratory rate 2023-09-07 00:19:07 18 /min [facility] Oxygen saturation in Arterial blood by Pulse oximetry 2023-09-07 00:19:07 95 /min [facility] Body temperature 2023-09-06 22:09:00 37.39 Jena [facility] Body height 2023-09-06 22:09:00 170.2 cm [facility] Body weight 2023-09-06 22:09:00 77.111 kg [facility] BMI 2023-09-06 22:09:00 26.63 kg/m2 [facility] Systolic blood pressure 2023-05-14 21:05:00 125 mm[Hg] [facility] Diastolic blood pressure 2023-05-14 21:05:00 64 mm[Hg] [facility] Heart rate 2023-05-14 21:05:00 63 /min Unive [facility] Respiratory rate 2023-05-14 21:05:00 19 /min [facility] Oxygen saturation in Arterial blood by Pulse oximetry 2023-05-14 21:05:00 98 /min [facility] Body temperature 2023-05-14 17:43:00 36.89 Jena [facility] Body height 2023-05-14 17:43:00 170.2 cm [facility] Body weight 2023-05-14 17:43:00 79.833 kg [facility] BMI 2023-05-14 17:43:00 27.57 kg/m2 [facility] Systolic blood pressure 2023-04-20 23:15:00 165 mm[Hg] [facility] Diastolic blood pressure 2023-04-20 23:15:00 76 mm[Hg] [facility] Oxygen saturation in Arterial blood by Pulse oximetry 2023-04-20 23:15:00 95 /min [facility] Respiratory rate 2023-04-20 23:00:00 17 /min [facility] Body temperature 2023-04-20 17:38:00 37.17 Jena [facility] Heart rate 2023-04-20 10:27:00 60 /[facility] 2023-04-20 10:00:00 79.969 kg [facility] BMI 2023-04-20 10:00:00 28.46 kg/m2 [facility] Body height 2023-04-18 00:24:00 167.6 cm [facility] Systolic blood pressure 2023-04-16 19:33:00 118 mm[Hg] [facility] Diastolic blood pressure 2023-04-16 19:33:00 75 mm[Hg] [facility] Heart rate 2023-04-16 19:33:00 78 /min Unive [facility] Body temperature 2023-04-16 19:33:00 37.28 Jena [facility] Respiratory rate 2023-04-16 19:33:00 18 /min [facility] Body height 2023-04-16 19:33:00 167.6 cm [facility] Body weight 2023-04-16 19:33:00 80.74 kg [facility] BMI 2023-04-16 19:33:00 28.73 kg/m2 [facility] Oxygen saturation in Arterial blood by Pulse oximetry 2023-04-16 19:33:00 95 /min [facility] Systolic blood pressure 2023-01-09 21:45:00 132 mm[Hg] [facility] Diastolic blood pressure 2023-01-09 21:45:00 72 mm[Hg] [facility] Heart rate 2023-01-09 21:45:00 75 /min Unive [facility] Body temperature 2023-01-09 21:45:00 36.94 Jena [facility] Respiratory rate 2023-01-09 21:45:00 16 /min [facility] Oxygen saturation in Arterial blood by Pulse oximetry 2023-01-09 21:45:00 98 /min [facility] Body height 2023-01-09 20:12:00 167.6 cm [facility] Body weight 2023-01-09 20:12:00 80.74 kg [facility] BMI 2023-01-09 20:12:00 28.73 kg/m2 [facility] Systolic blood pressure 2022-12-30 14:31:00 148 mm[Hg] [facility] Diastolic blood pressure 2022-12-30 14:31:00 72 mm[Hg] [facility] Heart rate 2022-12-30 14:31:00 69 /min Unive [facility] Body height 2022-12-30 14:31:00 168.9 cm [facility] Body weight 2022-12-30 14:31:00 81.421 kg Univ [facility] BMI 2022-12-30 14:31:00 28.54 kg/m2 [facility] Oxygen saturation in Arterial blood by Pulse oximetry 2022-12-30 14:31:00 97 /min [facility] Systolic blood pressure 2022-11-01 20:21:00 137 mm[Hg] [facility] Diastolic blood pressure 2022-11-01 20:21:00 73 mm[Hg] [facility] Heart rate 2022-11-01 20:21:00 72 /min [facility] Body height 2022-11-01 20:21:00 168.9 cm [facility] Body weight 2022-11-01 20:21:00 85.73 kg [facility] BMI 2022-11-01 20:21:00 30.05 kg/m2 [facility] Systolic blood pressure 2022-10-03 07:15:00 162 mm[Hg] [facility] Diastolic blood pressure 2022-10-03 07:15:00 82 mm[Hg] [facility] Heart rate 2022-10-03 07:15:00 67 /min [facility] Respiratory rate 2022-10-03 07:15:00 18 /min [facility] Oxygen saturation in Arterial blood by Pulse oximetry 2022-10-03 07:15:00 100 /min [facility] Body temperature 2022-10-03 03:46:00 36.78 Jena [facility] Body height 2022-10-03 03:46:00 167.6 cm [facility] Body weight 2022-10-03 03:46:00 85.73 kg [facility] BMI 2022-10-03 03:46:00 30.51 kg/m2 [facility] Systolic blood pressure 2022-09-17 17:38:00 97 mm[Hg] [facility] Diastolic blood pressure 2022-09-17 17:38:00 58 mm[Hg] [facility] Heart rate 2022-09-17 17:38:00 67 /min Unive [facility] Body temperature 2022-09-17 17:38:00 36.5 Jena [facility] Body height 2022-09-17 17:38:00 168.9 cm [facility] Body weight 2022-09-17 17:38:00 83.598 kg [facility] BMI 2022-09-17 17:38:00 29.30 kg/m2 [facility] Oxygen saturation in Arterial blood by Pulse oximetry 2022-09-17 17:38:00 95 /min [facility] Heart rate 2022-09-02 19:10:00 54 /min Unive [facility] Respiratory rate 2022-09-02 19:10:00 28 /min [facility] Oxygen saturation in Arterial blood by Pulse oximetry 2022-09-02 19:10:00 98 /min [facility] Systolic blood pressure 2022-09-02 19:00:00 140 mm[Hg] [facility] Diastolic blood pressure 2022-09-02 19:00:00 67 mm[Hg] [facility] Body weight 2022-09-02 17:19:00 86.183 kg [facility] BMI 2022-09-02 17:19:00 29.76 kg/m2 [facility] Systolic blood pressure 2022-09-01 22:30:00 159 mm[Hg] [facility] Diastolic blood pressure 2022-09-01 22:30:00 70 mm[Hg] [facility] Heart rate 2022-09-01 21:45:00 50 /min Unive [facility] Body temperature 2022-09-01 20:37:00 36.72 Jena [facility] Respiratory rate 2022-09-01 20:37:00 18 /min [facility] Oxygen saturation in Arterial blood by Pulse oximetry 2022-09-01 20:37:00 98 /min [facility] Body height 2022-08-31 21:12:00 170.2 cm [facility] Body weight 2022-08-31 21:12:00 84.369 kg [facility] BMI 2022-08-31 21:12:00 29.13 kg/m2 [facility] Systolic blood pressure 2022-07-21 16:13:00 152 mm[Hg] [facility] Diastolic blood pressure 2022-07-21 16:13:00 72 mm[Hg] [facility] Heart rate 2022-07-21 16:13:00 57 /min Unive [facility] Body temperature 2022-07-21 16:13:00 36.56 Jena [facility] Respiratory rate 2022-07-21 16:13:00 18 /min [facility] Oxygen saturation in Arterial blood by Pulse oximetry 2022-07-21 16:13:00 95 /min [facility] Body height 2022-07-20 17:32:00 170.2 cm [facility] Body weight 2022-07-20 17:32:00 86.183 kg [facility] BMI 2022-07-20 17:32:00 29.76 kg/m2 [facility] Systolic blood pressure 2022-04-12 19:06:00 156 mm[Hg] [facility] Diastolic blood pressure 2022-04-12 19:06:00 77 mm[Hg] [facility] Heart rate 2022-04-12 19:06:00 75 /min Unive [facility] Body height 2022-04-12 19:06:00 167.6 cm [facility] Body weight 2022-04-12 19:06:00 84.369 kg [facility] BMI 2022-04-12 19:06:00 30.02 kg/m2 [facility] Systolic blood pressure 2022-02-11 00:14:00 166 mm[Hg] [facility] Diastolic blood pressure 2022-02-11 00:14:00 77 mm[Hg] [facility] Heart rate 2022-02-11 00:14:00 57 /min [facility] Body temperature 2022-02-11 00:14:00 36.83 Jena [facility] Respiratory rate 2022-02-11 00:14:00 18 /min [facility] Body height 2022-02-11 00:14:00 170.2 cm [facility] Body weight 2022-02-11 00:14:00 83.008 kg [facility] BMI 2022-02-11 00:14:00 28.66 kg/m2 [facility] Oxygen saturation in Arterial blood by Pulse oximetry 2022-02-11 00:14:00 97 /min [facility] Systolic blood pressure 2021-08-04 20:49:00 179 mm[Hg] [facility] Diastolic blood pressure 2021-08-04 20:49:00 77 mm[Hg] [facility] Heart rate 2021-08-04 20:47:00 79 /min [facility] Body temperature 2021-08-04 20:47:00 36.67 Jena [facility] Body height 2021-08-04 20:47:00 167.6 cm [facility] Body weight 2021-08-04 20:47:00 87.091 kg [facility] BMI 2021-08-04 20:47:00 30.99 kg/m2 [facility] Oxygen saturation in Arterial blood by Pulse oximetry 2021-08-04 20:47:00 97 /min [facility] Procedures Procedure Date / Time Performed Performing Clinician Source POCT GLUCOSE (AUTOMATED) 2023-09-19 16:48:00 Elliot Fuentes [facility] POCT GLUCOSE (AUTOMATED) 2023-09-19 12:49:00 Elliot Fuentes [facility] MAGNESIUM 2023-09-19 09:38:00 Luz Fuentes [facility] TROPONIN I 2023-09-19 09:38:00 Luz Fuentes [facility] BASIC METABOLIC PANEL (NA, K, CL, CO2, GLUCOSE, BUN, CREATININE, CA) 2023-09-19 09:38:00 Yecenia Spears [facility] N-TERMINAL PRO-BNP 2023-09-19 09:38:00 Yuriy Spears [facility] POCT GLUCOSE (AUTOMATED) 2023-09-19 01:01:00 Elliot Fuentes [facility] POCT GLUCOSE (AUTOMATED) 2023-09-18 21:45:00 Elliot Fuentes [facility] POCT GLUCOSE (AUTOMATED) 2023-09-18 16:57:00 Elliot Fuentes [facility] TRANSTHORACIC ECHO (TTE) COMPLETE 2023-09-18 13:04:00 Luz Fuentes [facility] POCT GLUCOSE (AUTOMATED) 2023-09-18 12:59:00 Elliot Fuentes [facility] MAGNESIUM 2023-09-18 08:36[facility] 2023-09-18 08:36:00 Gary Howard [facility] BASIC METABOLIC PANEL (NA, K, CL, CO2, GLUCOSE, BUN, CREATININE, CA) 2023-09-18 08:36:00 Luz Fuentes [facility] LIPID PANEL (44162)(TOTAL CHOLESTEROL, TRIGLYCERIDES, HDL) 2023-09-18 08:36:00 Luz Fuentes [facility] CBC WITHOUT DIFF 2023-09-18 08:36:00 Luz Fuentes [facility] N-TERMINAL PRO-BNP 2023-09-18 08:36:00 Luz Fuentes [facility] POCT GLUCOSE (AUTOMATED) 2023-09-18 01:34:00 Elliot Fuentes [facility] POCT GLUCOSE (AUTOMATED) 2023-09-18 01:00:00 Elliot Fuentes [facility] POCT GLUCOSE (AUTOMATED) 2023-09-17 21:30:00 Elliot Fuentes [facility] CT CHEST PULMONARY ANGIOGRAM 2023-09-17 17:12:06 Emilia Chavez [facility] CT ABDOMEN PELVIS WO CONTRAST 2023-09-17 17:11:32 Emilia Chavez [facility] CBC WITH DIFF 2023-09-17 15:56:00 Emilia Chavez U [facility] GLYCOSYLATED HEMOGLOBIN (A1C) 2023-09-17 15:56:[address] [facility] TROPONIN I 2023-09-17 15:53:00 Emilia Chavez [facility] THYROID STIMULATING HORMONE 2023-09-17 15:53:00 [facility] COMP. METABOLIC PANEL (57469) 2023-09-17 15:53:00 Emilia Chavez [facility] D-DIMER 2023-09-17 15:53:00 Emilia Chavez [facility] URINALYSIS 2023-09-17 15:53:00 Emilia Chavez [facility] N-TERMINAL PRO-BNP 2023-09-17 15:53:00 Timo Chavez [facility] HB ECG ROUTINE & RHYTHM STRIP 2023-09-17 15:18:21 Emilia Chavez [facility] URINALYSIS 2023-09-06 22:49:00 Melissa Becker [facility] [id number] 2023-05-18 00:00:00 BURDA.06 [facility] [id number] 2023-05-18 00:00:00 BURDA.06 [facility] [id number] 2023-05-18 00:00:00 BURDA.06 [facility] URINALYSIS 2023-05-14 19:19:00 Emilia Chavez Un [facility] LACTIC ACID WHOLE BLOOD 2023-05-14 19:18:00 Emilia Chavez [facility] TROPONIN I 2023-05-14 18:09:00 Emilia Chavez [facility] COMP. METABOLIC PANEL (39349) 2023-05-14 18:09:00 Emilia Chavez [facility] CBC WITH DIFF 2023-05-14 18:09:00 Emilia Chavez [facility] CONSENT/REFUSAL FOR DIAGNOSIS AND TREATMENT 2023-05-14 17:30:41 Doctor Unassigned, [place] [facility] [id number] 2023-05-03 00:00:00 [facility] [id number] 2023-05-03 00:00:00 [facility] [id number] 2023-05-03 00:00:00 [facility] [id number] 2023-05-03 00:00:00 [facility] [id number] 2023-05-03 [id number] [id number] [facility]23-05-03 [facility] [id number] 2023-05-03 00:00:00 [facility] [id number] 2023-05-03 00:00[facility]00 [facility] [id number] 2023-05-03 00:00:00 [facility] [id number] 2023-05-03 00:00:00 [facility] [id number] 2023-05-03 00:00:00 [facility] [id number] 2023-05-03 00:00:00 [facility] POCT GLUCOSE (AUTOMATED) 2023-04-20 22:04:00 Ellen Patel [facility] POCT GLUCOSE (AUTOMATED) 2023-04-20 17:36:00 Ellen Patel [facility] POCT GLUCOSE (AUTOMATED) 2023-04-20 13:22:00 Ellen Patel [facility] MAGNESIUM 2023-04-20 10:31:00 [facility] (NA, K, CL, CO2, GLUCOSE, BUN, CREATININE, CA) 2023-04-20 10:31:00 Ronnell Sheehan [facility] CBC WITH DIFF 2023-04-20 10:31:00 Ronnell Sheehan [facility] POCT GLUCOSE (AUTOMATED) 2023-04-20 02:43:00 Ellen Patel [facility] TROPONIN I 2023-04-19 23:28:00 Gina [facility] POCT GLUCOSE (AUTOMATED) 2023-04-19 22:21:00 Ellen Patel [facility] TROPONIN I 2023-04-19 18:40:00 Gina [facility] POCT GLUCOSE (AUTOMATED) 2023-04-19 17:34:00 Ellen Patel [facility] POCT GLUCOSE (AUTOMATED) 2023-04-19 14:15:00 Ellen Patel [facility] MAGNESIUM 2023-04-19 09:38:00 Gina [facility] TROPONIN I 2023-04-19 09:38:00 Gina [facility] BASIC METABOLIC PANEL (NA, K, CL, CO2, GLUCOSE, BUN, CREATININE, CA) 2023-04-19 09:38:[address] [facility] CBC WITH DIFF 2023-04-19 09:38:00 Willam Fuenteslani [facility] N-TERMINAL PRO-BNP 2023-04-19 09:38:[address] [facility] TROPONIN I 2023-04-19 04:38:00 Gina [facility] POCT GLUCOSE (AUTOMATED) 2023-04-19 02:23:00 Ellen Patel [facility] TROPONIN I 2023-04-18 22:47:00 Gina [facility] FREE T4 2023-04-18 22:47:00 Gina [facility] FREE T3 2023-04-18 22:47:00 Gian [facility] POCT GLUCOSE (AUTOMATED) 2023-04-18 22:19:00 Ellen Patel [facility] POCT GLUCOSE (AUTOMATED) 2023-04-18 17:25:00 Ellen Patel [facility] TROPONIN I 2023-04-18 16:59:00 Luz Fuentes [facility] HB ECG ROUTINE & RHYTHM STRIP 2023-04-18 16:52:21 Nahid [place] [facility] POCT GLUCOSE (AUTOMATED) 2023-04-18 14:11:00 Ellen Patel [facility] TRANSTHORACIC ECHO (TTE) COMPLETE W/ CONTRAST 2023-04-18 14:06:[address] [facility] TROPONIN I 2023-04-18 10:13:00 Gina [facility] THYROID STIMULATING HORMONE 2023-04-18 10:13:[address] [facility] HEPATIC FUNCTION PANEL (73083) (ALB,T.PRO,BILI T,BU/BC,ALT,AST,ALK PHOS) 2023-04-18 10:13:[address] [facility] BASIC METABOLIC PANEL (NA, K, CL, CO2, GLUCOSE, BUN, CREATININE, CA) 2023-04-18 10:13:[address] [facility] LIPID PANEL (23371)(TOTAL CHOLESTEROL, TRIGLYCERIDES, HDL) 2023-04-18 10:13:[address] [facility] CBC WITH DIFF 2023-04-18 10:13:00 Gina [facility] N-TERMINAL PRO-BNP 2023-04-18 10:13:00 Nahid Wakefield [facility] CT CHEST PULMONARY ANGIOGRAM 2023-04-18 05:13:32 Raman Patel [facility] TROPONIN I 2023-04-18 04:10:00 Gina [facility] ACUTE CARE ARTERIAL BLOOD GAS 2023-04-18 04:00:00 Raman Patel [facility] POCT GLUCOSE (AUTOMATED) 2023-04-18 01:25:00 Elliot Fuentes [facility] TROPONIN I 2023-04-17 23:24:00 Mora Mcginnis [facility] BASIC METABOLIC PANEL (NA, K, CL, CO2, GLUCOSE, BUN, CREATININE, CA) 2023-04-17 23:24:00 Mora Mcginnis [facility] CBC WITH DIFF 2023-04-17 23:24:00 Mora Mcginnis [facility] GLYCOSYLATED HEMOGLOBIN (A1C) 2023-04-17 23:24:00 Luz Fuentes [facility] XR CHEST 2 VW 2023-04-17 21:17:00 Mora Mcginnis [facility] RAPID INFLUENZA A/B 2023-04-17 20:05:00 Ced Mcginnis [facility] COVID-19 (ID NOW RAPID TESTING) 2023-04-17 20:05:00 Mora Mcginnis [facility] LAB ONLY COVID INTERPRETATION 2023-04-17 20:05:00 Mora Mcginnis [facility] CONSENT/REFUSAL FOR DIAGNOSIS AND TREATMENT 2023-04-17 19:37:16 Doctor Unassigned, [place] [facility] ASSIGNMENT OF BENEFITS 2023-04-16 21:18:46 Docto r Unassigned, [place] [facility] XR RIBS 3 VW RIGHT 2023-04-16 20:43:00 Lennox Vasquez [facility] CONSENT/REFUSAL FOR DIAGNOSIS AND TREATMENT 2023-04-16 19:08:10 Doctor Unassigned, [place] [facility] ASSIGNMENT OF BENEFITS 2023-01-09 20:53:06 Docto r Unassigned, [place] [facility] URINALYSIS 2023-01-09 20:15:00 Pritesh [facility] CONSENT/REFUSAL FOR DIAGNOSIS AND TREATMENT 2023-01-09 20:04:39 Doctor Unassigned, [place] [facility] XR RIBS 3 VW LEFT 2022-10-03 05:07:07 Feli Spencer [facility] ASSIGNMENT OF BENEFITS 2022-10-03 04:02:03 Docsinan r Unassigned, [place] [facility] CONSENT/REFUSAL FOR DIAGNOSIS AND TREATMENT 2022-10-03 03:38:21 Doctor Unassigned, [place] [facility] ASSIGNMENT OF BENEFITS 2022-09-17 17:10:22 Docto r Unassigned, [place] [facility] EKG-12 LEAD 2022-09-02 19:06:45 [place] Goetz [facility] CT STROKE ANGIOGRAM HEAD 2022-09-02 18:03:51 Brian Goetz [facility] CT STROKE ANGIOGRAM NECK 2022-09-02 18:03:51 Brian Goetz [facility] TROPONIN I 2022-09-02 17:58:00 [place] Goetz [facility] BASIC METABOLIC PANEL (NA, K, CL, CO2, GLUCOSE, BUN, CREATININE, CA) 2022-09-02 17:58:00 [place] Goetz [facility] CBC WITHOUT DIFF 2022-09-02 17:58:00 [place] [facility] 2022-09-02 17:58:00 Guadalupe Goetz [facility] ACTIVATED PARTIAL THRMPLAS SOBEIDA 2022-09-02 17:58:00 [place] Goetz [facility] CT STROKE HEAD WO CONTRAST 2022-09-02 17:50:00 [place] Goetz [facility] POCT GLUCOSE (AUTOMATED) 2022-09-02 17:43:00 Bakari castillo Unassigned, [place] [facility] CONSENT/REFUSAL FOR DIAGNOSIS AND TREATMENT 2022-09-02 17:18:00 Doctor Unassigned, [place] [facility] POCT GLUCOSE (AUTOMATED) 2022-09-01 22:50:00 Mem onAndre [facility] POCT GLUCOSE (AUTOMATED) 2022-09-01 17:14:00 Mem nathaniel, Andre Arana [facility] POCT GLUCOSE (AUTOMATED) 2022-09-01 13:17:00 Mem onAndre [facility] MAGNESIUM 2022-09-01 08:53:00 Aldo Pham rodney [facility] BASIC METABOLIC PANEL (NA, K, CL, CO2, GLUCOSE, BUN, CREATININE, CA) 2022-09-01 08:53:00 Aldo Pham rodney [facility] CBC WITH DIFF 2022-09-01 08:53:00 Aldo Pham [facility] PROTHROMBIN TIME / INR 2022-09-01 08:53:00 Aldo carson [facility] VERIFYNOW ASPIRIN TEST 2022-09-01 08:53:00 Andre Nieves i [facility] POCT GLUCOSE (AUTOMATED) 2022-09-01 03:15:00 Mem Andre armstrong [facility] MR STROKE BRAIN WO CONTRAST 2022-08-31 23:21:12 Aldo Pham rodney [facility] POCT GLUCOSE (AUTOMATED) 2022-08-31 22:24:00 Mem onAndre [facility] XR CHEST 1 VW 2022-08-31 22:17:00 Tricia Seaman mmad [facility] HB ECG ROUTINE & RHYTHM STRIP 2022-08-31 16:28:37 Wang John [facility] URINALYSIS 2022-08-31 16:26:00 Wang John [facility] CT STROKE ANGIOGRAM HEAD 2022-08-31 15:49:00 Wang John [facility] CT STROKE ANGIOGRAM NECK 2022-08-31 15:49:00 Wang John [facility] CT STROKE HEAD WO CONTRAST 2022-08-31 15:38:00 Wang John [facility] TROPONIN I 2022-08-31 15:27:00 Wang John [facility] THYROID STIMULATING HORMONE 2022-08-31 15:27:00 Wilber Johnston [facility] BASIC METABOLIC PANEL (NA, K, CL, CO2, GLUCOSE, BUN, CREATININE, CA) 2022-08-31 15:27:00 Wang John [facility] LIPID PANEL (25263)(TOTAL CHOLESTEROL, TRIGLYCERIDES, HDL) 2022-08-31 15:27:00 Wilber Johnston [facility] CBC WITHOUT DIFF 2022-08-31 15:27:00 Wang John [facility] PROTHROMBIN TIME / INR 2022-08-31 15:27:00 Beto John [facility] ACTIVATED PARTIAL THRMPLAS SOBEIDA 2022-08-31 15:27:00 Wang John [facility] POCT GLUCOSE (AUTOMATED) 2022-08-31 15:26:00 Wang John [facility] CONSENT/REFUSAL FOR DIAGNOSIS AND TREATMENT 2022-08-31 14:53:19 Doctor Unassigned, [place] [facility] AUTHORIZATION FOR RELEASE OF PHI 2022-08-19 05:01:00 Doctor Unassigned, [place] [facility] POCT GLUCOSE (AUTOMATED) 2022-07-21 16:48:00 Mem on, Andre Appleeshan [facility] POCT GLUCOSE (AUTOMATED) 2022-07-21 13:00:00 Mem onAndreeshan [facility] MAGNESIUM 2022-07-21 09:26:00 Wilber Johnston [facility] BASIC METABOLIC PANEL (NA, K, CL, CO2, GLUCOSE, BUN, CREATININE, CA) 2022-07-21 09:26:00 Wilber Johnston [facility] CBC WITHOUT DIFF 2022-07-21 09:26:00 Drew Johnston [facility] POCT GLUCOSE (AUTOMATED) 2022-07-21 01:30:00 Mem onAndreeshan [facility] POCT GLUCOSE (AUTOMATED) 2022-07-20 22:26:00 Mem on Powell Sumit [facility] MR STROKE BRAIN WO CONTRAST 2022-07-20 22:04:37 Carmen Grimes [facility] TRANSTHORACIC ECHO (TTE) COMPLETE W/ CONTRAST 2022-07-20 21:00:00 Carmen Grimes [facility] CT ANGIOGRAM HEAD 2022-07-20 13:59:00 Yasmin Sunshine [facility] CT ANGIOGRAM NECK 2022-07-20 13:59:00 Yasmin Sunshine [facility] CT HEAD WO CONTRAST 2022-07-20 13:53:00 Yasmin Villa [facility] HB ECG ROUTINE & RHYTHM STRIP 2022-07-20 12:38:22 Yasmin Nava [facility] TROPONIN I 2022-07-20 12:35:00 Yasmin Nava [facility] COMP. METABOLIC PANEL (49945) 2022-07-20 12:35:00 Yasmin Nava [facility] LIPID PANEL (07351)(TOTAL CHOLESTEROL, TRIGLYCERIDES, HDL) 2022-07-20 12:35:00 Osman Cross Carmen [facility] CBC WITH DIFF 2022-07-20 12:35:00 Yasmin Nava [facility] GLYCOSYLATED HEMOGLOBIN (A1C) 2022-07-20 12:35:00 Osman Cross Carmen [facility] PROTHROMBIN TIME / INR 2022-07-20 12:35:00 Yasmin Baca [facility] ACTIVATED PARTIAL THRMPLAS SOBEIDA 2022-07-20 12:35:00 Yasmin Nava [facility] CONSENT/REFUSAL FOR DIAGNOSIS AND TREATMENT 2022-07-20 12:16:03 Doctor Unassigned, [place] [facility] XR FINGERS 2 VW RIGHT 2022-02-11 01:24:14 Samantha Moody [facility] ASSIGNMENT OF BENEFITS 2022-02-11 00:49:49 Docto r Unassigned, [place] [facility] CONSENT/REFUSAL FOR DIAGNOSIS AND TREATMENT 2022-02-11 00:03:22 Doctor Unassigned, [place] [facility] Encounters Start Date/Time End Date/Time Encounter Type Admission Type Attending Clinicians Care Facility Care Department Encounter ID Source 2022-02-25 12:41:17 Outpatient [facility] [id number] [facility] 2023-09-20 00:00:00 2023-09-20 12:15:13 Transition of Care Zuly LomaxAngelica YEN HODGES 1.2.840.114 350.1.13.10 4.2.7.2.686 [id number] [facility] 2023-09-17 10:13:00 2023-09-19 12:50:00 Inpatient X GINA LUZ [facility] [id number] [facility] 2023-09-17 10:13:00 2023-09-19 12:50:00 Hospital Encounter Mora Mcginnis Jubril Oville, Jelani [facility] 1..840.114 350.1.13.10 4.2.7.2.686 [id number] [facility] 2023-09-06 17:11:00 2023-09-06 19:23:00 Emergency X RHEA [facility] ERT [id number] [facility] 2023-09-06 17:11:00 2023-09-06 19:23:00 [facility]..[facility].114 350.1.13.10 4.2.7.2.686 [id number] [facility] 2023-08-17 11:37:08 2023-08-17 11:37:08 Outpatient [facility] [id number] Enzo Vicente 2023-06-09 00:00:00 2023-06-09 00:00:00 Outpatient YOUSUF_A1 EDUARDO EDUARDO [id number] Dr. Rajesh Kilgore 2023-05-14 17:38:00 2023-05-19 12:08:00 Inpatient Rajesh Manning [facility] CARDIAC [id number] [facility] 2023-05-16 13:30:00 2023-05-16 13:30:00 Outpatient ASA ZHENG [facility] [id number] [facility] 2023-05-14 11:46:00 2023-05-14 15:32:00 Emergency X EMILIA CHAVEZ [facility] ERT [id number] [facility] 2023-05-14 11:46:00 2023-05-14 15:32:00 Emergency AdeOsiris nguyenandre [facility] 1.2840.114 350.1.13.10 4.2.7.2.686 [id number] [facility] 2023-04-28 13:33:00 2023-05-08 14:27:00 Inpatient Rajesh Larry [facility] CARDIAC [id number] [facility] 2023-05-01 11:11:00 2023-05-01 11:11:00 [facility] [id number] [facility] 2023-04-28 07:02:00 2023-04-28 07:02:00 Outpatient Katya Cuevas [facility] [id number] [facility] 2023-04-21 00:00:00 2023-04-21 00:00:00 Transition of Care Emmanuel Hurley 1.2840.114 350.1.13.10 4.2.7.2.686 [id number] [facility] 2023-04-17 13:58:00 2023-04-20 17:21:00 Hospital Encounter Mora Mcginnis Jelani Khan, Mohammad A. [facility] 1.2840.114 350.1.13.10 4.2.7.2.686 [id number] [facility] 2023-04-17 13:51:35 2023-04-17 13:51:35 Outpatient R MORA MCGINNIS [facility] [id number] [facility] 2023-04-16 13:38:00 2023-04-16 15:50:00 Emergency X LENNOX VASQUEZ [facility] ERT [id number] [facility] 2023-04-16 13:38:00 2023-04-16 15:50:00 Emergency Lennox Vasquez [facility] 1.2.840.114 350.1.13.10 4.2.7.2.686 [id number] [facility] 2023-02-11 08:00:00 2023-02-11 08:00:00 Outpatient TINY MANCIA [facility] [id number] [facility] 2023-01-28 09:30:00 2023-01-28 10:21:21 Outpatient TINY MANCIA [facility] [id number] [facility] 2023-01-28 09:30:00 2023-01-28 10:21:21 Ancillary Visit Alisha Hussein [facility] 1.2.840.114 350.1.13.10 4.2.7.2.686 [id number] [facility] 2023-01-14 13:00:00 2023-01-14 13:42:37 Ancillary Visit Alisha Hussein [facility] BUILDING 1.2.840.114 350.1.13.10 4.2.7.2.686 [id number] [facility] 2023-01-09 15:16:00 2023-01-09 16:51:00 Emergency X PRITESH DUMONT [facility] ERT [id number] [facility] 2023-01-09 15:16:00 2023-01-09 16:51:00 Emergency Pritesh Dumont [facility] 1.2.840.114 350.1.13.10 4.2.7.2.686 [id number] [facility] 2023-01-06 08:45:00 2023-01-06 09:48:56 Outpatient TINY MANCIA [facility] [id number] [facility] 2023-01-06 08:45:00 2023-01-06 09:48:56 Ancillary Visit Macie Geiger Shanna C [facility] 1.2.840.114 350.1.13.10 4.2.7.2.686 [id number] [facility] 2022-12-31 13:00:00 2022-12-31 13:00:00 Outpatient RONY EVANS [facility] [id number] [facility] 2022-12-30 10:30:00 2022-12-30 10:45:00 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 Caretaker Visit Draw, Clc-Bls Lab Andre Chanel [facility] MEDICAL OFFICE BUILDING 1.2.840.114 350.1.13.10 4.2.7.2.686 [id number] [facility] 2022-12-30 09:30:00 2022-12-30 10:00:00 Office Visit Andre Chanel [facility] OFFICE BUILDING 1.2.840.114 350.1.13.10 4.2.7.2.686 [id number] [facility] 2022-12-30 09:30:00 2022-12-30 09:30:00 Outpatient R DARÍO POWELLNGOZI CHANEL POWELL [facility] [id number] [facility] 2022-11-01 15:30:00 2022-11-01 15:45:00 Office Visit Asa Romo [facility] MEDICAL OFFICE BUILDING 1..840.114 350.1.13.10 4.2.7.2.686 [id number] [facility] 2022-11-01 15:30:00 2022-11-01 15:30:00 Outpatient R ASA ROMO [facility] [id number] [facility] 2022-10-11 15:00:00 2022-10-11 15:30:00 Telemedici ne Visit Asa Romo [facility] MEDICAL OFFICE BUILDING 1..840.114 350.1.13.10 4.2.7.2.686 [id number] [facility] 2022-10-11 15:00:00 2022-10-11 15:00:00 Outpatient R ASA ROMO [facility] [id number] [facility] 2022-10-02 22:54:00 2022-10-03 02:27:00 Emergency X Feli SPENCER [facility] ERT [id number] [facility] 2022-10-02 22:54:00 2022-10-03 02:27:00 Emergency Feli Spencer [facility] 1..840.114 350.1.13.10 4.2.7.2.686 [id number] [facility] 2022-09-24 10:00:00 2022-09-24 10:00:00 Outpatient R TINY CANTU [facility] [id number] [facility] 2022-09-17 13:00:00 2022-09-17 13:37:45 Outpatient R ANDRE CHANEL MUHAMMAD [facility] [id number] [facility] 2022-09-17 13:00:00 2022-09-17 13:37:45 Office Visit Andre Chanel [facility] MEDICAL OFFICE BUILDING 1..840.114 350.1.13.10 4.2.7.2.686 [id number] [facility] 2022-09-17 00:00:00 2022-09-17 00:00:00 Orders Only Doctor Unassigned, [place] [facility] 1.2840.114 350.1.13.10 4.2.7.2.686 [id number] [facility] 2022-09-09 00:00:00 2022-09-09 00:00:00 Telephone Demetrius, Asa Burnettyamileth [facility] MEDICAL OFFICE BUILDING 1.2840.114 350.1.13.10 4.2.7.2.686 [id number] [facility] 2022-09-02 12:26:00 2022-09-02 14:47:00 Emergency X MONTANA GOETZ [facility] ERT [id number] [facility] 2022-09-02 12:26:00 2022-09-02 14:47:00 Emergency [place] Goetz [facility] 1.840.114 350.1.13.10 4.2.7.2.686 [id number] [facility] 2022-09-02 00:00:00 2022-09-02 00:00:00 Transition of Care Batool Valle 1.2840.114 350.1.13.10 4.2.7.2.686 [id number] [facility] 2022-08-31 10:14:00 2022-09-01 19:54:00 Outpatient U ANDRE CHANEL MUHAMMAD [facility] KRISTY [id number] [facility] 2022-08-31 10:14:00 2022-09-01 19:54:00 Emergency Wang John Muhammad Zeeshan [facility] 1.20.114 350.1.13.10 4.2.7.2.686 [id number] [facility] 2022-08-24 07:47:52 2022-08-24 07:47:52 Outpatient [facility] [id number] Enzo Vicente 2022-08-19 00:00:00 2022-08-19 00:00:00 Orders Only Doctor Unassigned, [place] [facility] 1.2840.114 350.1.13.10 4.2.7.2.686 [id number] [facility] 2022-07-22 00:00:00 2022-07-22 00:00:00 Transition of Care Zuly Lomax 1.2.114 350.1.13.10 4.2.7.2.686 [id number] [facility] 2022-07-20 07:23:00 2022-07-21 16:00:00 Outpatient X ANDRE CHANEL POWELL [facility] KRISTY [id number] [facility] 2022-07-20 07:23:00 2022-07-21 16:00:00 Emergency AuanuperYasmin beckwith [facility] 1..114 350.1.13.10 4.2.7.2.686 [id number] [facility] 2022-04-12 13:00:00 2022-04-12 13:15:00 Office Visit Asa Romo [facility] MEDICAL OFFICE BUILDING 1.284.114 350.1.13.10 4.2.7.2.686 [id number] [facility] 2022-04-12 13:00:00 2022-04-12 13:00:00 Outpatient R ASA ROMO [facility] [id number] [facility] 2022-02-10 19:19:00 2022-02-10 21:20:00 Emergency X SHREYAS MOODY [facility] ERT [id number] [facility] 2022-02-10 19:19:00 2022-02-10 21:20:00 Emergency Shreyas Moody [facility] 1.2.840.114 350.1.13.10 4.2.7.2.686 [id number] [facility] 2022-02-09 10:00:00 2022-02-09 10:00:00 Outpatient TINY MANCIA [facility] [id number] [facility] 2022-01-22 00:00:00 2022-01-22 00:00:00 Telephone Asa Romo [facility] MEDICAL OFFICE BUILDING 1..840.114 350.1.13.10 4.2.7.2.686 [id number] [facility] 2021-08-04 15:45:00 2021-08-04 16:30:00 [facility] MEDICAL OFFICE BUILDING 1..840.114 350.1.13.10 4.2.7.2.686 [id number] [facility] 2021-08-04 15:45:00 2021-08-04 15:45:00 Outpatient TOMMY MAYER [facility] [id number] [facility] 2021-08-04 15:45:00 2021-08-04 15:45:00 Outpatient TOMMY MAYER [facility] [id number] [facility] 2021-08-04 15:45:00 2021-08-04 15:45:00 Outpatient TOMMY MAYER [facility] [id number] [facility] 2021-08-04 00:00:00 2021-08-04 00:00:00 Letter (Out) Rachel Mcfarland [facility] MEDICAL OFFICE BUILDING 1.2.840.114 350.1.13.10 4.2.7.2.686 [id number] [facility] 2021-08-03 09:45:00 2021-08-03 11:33:46 Outpatient R ASA ROMO [facility] [id number] [facility] 2021-08-03 09:45:00 2021-08-03 11:33:46 Office Visit Asa Romo [facility] MEDICAL OFFICE BUILDING 1.2.840.114 350.1.13.10 4.2.7.2.686 [id number] [facility] 2021-07-10 00:00:00 2021-07-10 00:00:00 Telephone Asa Romo [facility] MEDICAL OFFICE BUILDING 1.2840.114 350.1.13.10 4.2.7.2.686 [id number] [facility] 2021-07-09 00:00:00 2021-07-09 00:00:00 [facility].2840.114 350.1.13.10 4.2.7.2.686 [id number] [facility] 2021-07-07 15:00:00 2021-07-08 14:49:00 Hospital Encounter [facility] 1.2840.114 350.1.13.10 4.2.7.2.686 [id number] [facility] 2021-07-07 15:00:00 2021-07-08 14:49:00 Hospital Encounter [facility] 1.2.840.114 350.1.13.10 4.2.7.2.686 [id number] [facility] 2021-07-07 07:46:06 2021-07-08 14:49:00 [facility] [id number] [facility] 2021-07-07 07:46:06 2021-07-08 14:49:00 [facility] [id number] [facility] 2021-07-07 09:08:00 2021-07-07 14:50:00 Anesthesia Event [facility] Altinger [facility] 1..114 350.1.13.10 4.2.7.2.686 [id number] [facility] 2021-07-06 08:45:00 2021-07-06 09:00:00 Laboratory Only Only, Adc Test Radiology Juan Mae [facility] 1.114 350.1.13.10 4.2.7.2.686 [id number] [facility] 2021-07-06 08:45:00 2021-07-06 08:45:00 Outpatient R JUAN MAE [facility] [id number] [facility] 2021-06-22 00:00:00 2021-06-22 00:00:00 Telephone Rachel Mcfarland [facility] 1.114 350.1.13.10 4.2.7.2.686 [id number] [facility] 2021-06-18 00:00:00 2021-06-18 00:00:00 Telephone Rachel Mcfarland [facility] 1..114 350.1.13.10 4.2.7.2.686 [id number] [facility] 2021-06-15 11:00:00 2021-06-15 12:23:32 Office Visit Asa Romo [facility] MEDICAL OFFICE BUILDING 1.114 350.1.13.10 4.2.7.2.686 [id number] [facility] 2021-06-15 11:00:00 2021-06-15 12:23:32 Outpatient R DEMETRIUS ASA [facility] [id number] [facility] 2021-06-15 11:00:00 2021-06-15 11:00:00 Outpatient Erlinda ROMO ASA [facility] [id number] [facility] 2021-06-15 11:00:00 2021-06-15 11:00:00 Outpatient R DEMETRIUS ASA [facility] [id number] [facility] 2021-06-15 00:00:00 2021-06-15 00:00:00 Orders Only Doctor Unassigned, [place] [facility] 1.2.840.114 350.1.13.10 4.2.7.2.686 [id number] [facility] 2021-06-11 00:00:00 2021-06-11 00:00:00 [facility] MEDICAL OFFICE BUILDING 1.2.840.114 350.1.13.10 4.2.7.2.686 [id number] [facility] 2021-05-19 13:30:00 2021-05-19 14:15:00 Office Visit Jarvis [facility] MEDICAL OFFICE BUILDING 1.2.840.114 350.1.13.10 4.2.7.2.686 [id number] [facility] 2021-05-19 13:30:00 2021-05-19 13:30:00 Outpatient R TOMMY CONLEY [facility] [id number] [facility] 2021-05-11 00:00:00 2021-05-11 00:00:00 Telephone Rachel Mcfarland [facility] MEDICAL OFFICE BUILDING 1.2.840.114 350.1.13.10 4.2.7.2.686 [id number] [facility] 2021-05-11 00:00:00 2021-05-11 00:00:00 Telephone Racehl Mcfarland [facility] MEDICAL OFFICE BUILDING 1..114 350.1.13.10 4.2.7.2.686 [id number] [facility] 2021-05-06 09:40:02 2021-05-06 23:59:00 Outpatient R VEENA CHANELD DARÍO POWELL [facility] [id number] [facility] 2021-05-06 09:40:02 2021-05-06 23:59:00 Hospital Encounter DaríoVeena armstrongd [facility] 1.114 350.1.13.10 4.2.7.2.686 [id number] [facility] 2021-05-06 09:40:02 2021-05-06 23:59:00 Outpatient R VEENA CHANELD DARÍO POWELL [facility] [id number] [facility] 2021-05-04 15:30:00 2021-05-04 15:45:00 Laboratory Only Only, [place] Vann [facility] 1..114 350.1.13.10 4.2.7.2.686 [id number] [facility] 2021-05-04 15:30:00 2021-05-04 15:30:00 Outpatient R BOSTON DEMPSEY [facility] [id number] [facility] 2021-05-04 11:00:00 2021-05-04 11:00:00 Outpatient R ASA ROMO [facility] [id number] [facility] 2021-05-04 00:00:00 2021-05-04 00:00:00 Orders Only Doctor Unassigned, [place] [facility] 1..114 350.1.13.10 4.2.7.2.686 [id number] [facility] 2021-04-30 00:00:00 2021-04-30 00:00:00 Clinic Assessment Darío Powelllinda Arana [facility] 1.2.840.114 350.1.13.10 4.2.7.2.686 [id number] [facility] 2021-04-21 00:00:00 2021-04-21 00:00:00 Transition of Care Zuly Lomax 1.2840.114 350.1.13.10 4.2.7.2.686 [id number] [facility] 2021-04-18 14:56:00 2021-04-19 18:11:00 Emergency Pedro LennoxAndre Cason [facility] 1.2840.114 350.1.13.10 4.2.7.2.686 [id number] [facility] 2021-04-18 14:56:00 2021-04-19 18:11:00 Outpatient X DARÍO ANDRE AVILEZ [facility] KRISTY [id number] [facility] 2021-04-18 14:56:00 2021-04-19 18:11:00 Outpatient X DARÍO ANDRE AVILEZ [facility] KRISTY [id number] [facility] Results Test Description Test Time Test Comments Results Result Co mments Source [facility] GLUCOSE (AUTOMATED)2023-09-19 12:53:46* Test Item Value Reference Range Interpretation Comme nts POCT GLU (test code = 0896603506) 146 mg/dL 70-110 H Lab Interpretation (test cod e = 53916-7) Abnormal [facility] GLUCOSE (AUTOMATED)2023-09-19 01:02:13* Test Item Value Reference Range Interpretation Comme nts POCT GLU (test code = 7524425935) 305 mg/dL 70-110 H Lab Interpretation (test cod e = 05307-5) Abnormal [facility] GLUCOSE (AUTOMATED)2023-09-18 21:46:31* Test Item Value Reference Range Interpretation Comme [facility] POCT GLU (test code = 5067910143) 260 mg/dL 70-110 H Lab Interpretation (test cod e = 55413-2) Abnormal [facility] GLUCOSE (AUTOMATED)2023-09-18 17:08:29* Test Item Value Reference Range Interpretation Comme [facility] POCT GLU (test code = 5896715164) 308 mg/dL 70-110 H Lab Interpretation (test cod e = 18079-1) Abnormal [facility]2023-[facility]-18 15:46:11* Test Item Value Reference Range Interpretation Comme nts Height (test code = 4710224300) 67 in Weight (test code = 2804321576) 170 lbs Systolic BP (test code = 0267810892) 135 mmHg Diastolic BP (test code = 8866581353) 70 mmHg Heart Rate (test code = 0706632977) 60 bpm BSA (test code = 6595036103) 1.89 m2 Ao root diam (test code = 3429456939) 3.70 cm Aortic root (test code = 7594814547) 3.7 cm Ao root annulus (test code = 1215722860) 3.7 cm LVOT diameter (test code = 9820786922) 2.14 cm LVOT area (test code = 8243803490) 3.60 cm2 LA size (test code = 9946636275) 4.9 cm LVIDD (test code = 4394464349) 4.20 cm Left Ventricular End Diastolic Volume by Teichholz Method (test code = 4704585) 77.8 mL IVS (test code = 4503675708) 1.44 cm Interventricular Septum Diastolic Thickness by 2D (test code = 4981060) 1.44 cm LVPWD (test code = 3887654093) 1.43 cm PW (test code = 8030041131) 1.43 cm 0.6-1.1 EF(Teich) (test code = 8620328629) 37.30 % LVIDS (test code = 7666860435) 3.40 cm Left Ventricular End Systolic Volume by Teichholz Method (test code = 9622420) 48.7 mL FS (test code = 0918516027) 18 % EF - 2D (test code = 72053121) 37.30 % LAV(MOD-sp4) (test code = 9096459477) 108.40 mL A4C EF (test code = 0226288625) 37.60 % EF(sp4-el) (test code = 4912186738) 39.80 % SV(MOD-sp4) (test code = 6026857033) 35.90 mL SV(sp4-el) (test code = 1558218484) 39.40 mL MV Peak E Neha (test code = 6494374121) 103.8 cm/s MV stenosis pressure 1/2 time (test code = 5598061700) 61.6 ms MV Peak A Neha (test code = 9365881310) 42.4 cm/s E/A ratio (test code = 4620770539) 2.44 ratio E wave decelartion time (test code = 0337468674) 0.21 s MV Prop V (test code = 4384564628) 37.80 cm/s MV E/e' septal (test code = 3343928593) 11.2 cm/s Tapse (test code = 7044278944) 1.22 cm LVOT stroke volume (test code = 6752988892) 56.90 cm3 LVOT peak neha (test code = 1930615052) 80.2 cm/s LVOT mn grad (test code = 4910592042) 1.3 mmHg AV LVOT peak gradient (test code = 9288853380) 2.6 mmHg LVOT peak VTI (test code = 1709003024) 15.8 cm LV V1 mean (test code = 9456110078) 53.50 cm/s Aortic valve mean velocity (test code = 0388583059) 125.8 cm/s Ao peak neha (test code = 6082891536) 189.3 cm/s Ao VTI (test code = 2297801584) 37.7 cm AV area by cont VTI (test code = 1511256898) 1.5 cm2 AV area peak neha (test code = 4456027880) 1.5 cm2 Ao max PG (test code = 7716900968) 14.30 mm[Hg] AV peak gradient (test code = 2689471134) 14.3 mmHg AV valve area (test code = 5401844907) 1.51 cm2 AV mean gradient (test code = 9608687830) 7.0 mmHg AV regurgitation pressure 1/2 time (test code = 5487506296) 862.2 ms AI dec slope (test code = 8048215303) 80.50 cm/s2 AI max neha (test code = 2839731380) 237.10 cm/s AI max PG (test code = 1120399405) 22.50 mm[Hg] Radiology Study observation (narrative) (test code = 98492-4) RYANN (test code = RYANN) ?Left?Ventricle: Left ventricle size is normal. Moderately increased wall thickness. There is pseudonormal diastolic dysfunction. ?Right?Ventricle: Right ventricle size is normal. Normal systolic function. ?Aortic?Valve: Moderately thickened cusps. Mildly calcified cusps. No hemodynamically significant . AV mean gradient is 7.0 mmHg. AV peak gradient is 14.3 mmHg. ?Left?Atrium: Left atrium is moderately dilated. Saline contrast shows no shunt. ?Tricuspid?Valve: Tricuspid valve structure is normal. Trace transvalvular regurgitation. Insufficient tricuspid regurgitation jet to estimate RVSP . ?RA pressure is 0-5 mmHg. Left VentricleLeft ventricle size is normal. Moderately increased wall thickness. Septal motion is normal. . No regional wall motion abnormalities. Low normal systolic function with a visually estimated EF of 50 - 55%. There is pseudonormal diastolic dysfunction.Right VentricleRight ventricle size is normal. Normal systolic function.Left AtriumLeft atrium is moderately dilated. Saline contrast shows no shunt.Right AtriumRight atrium size is normal.Mitral ValveMildly thickened leaflets. Moderate mitral annular calcification. Mild to moderate transvalvular regurgitation.Tricuspi d ValveTricuspid valve structure is normal. Trace transvalvular regurgitation. Insufficient tricuspid regurgitation jet to estimate RVSP . RA pressure is 0-5 mmHg.Aortic ValveModerately thickened cusps. Mildly calcified cusps. Mild transvalvular regurgitation. No hemodynamically significant . AV mean gradient is 7.0 mmHg. AV peak gradient is 14.3 mmHg.Pulmonic ValveNot well visualized. Pulmonic valve is normal in structure and function. Trace transvalvular regurgitation.Ascendin g AortaMildly enlarged aortic root.PericardiumThe pericardium is normal. No pericardial effusion.Study DetailsStudy quality was adequate. A complete echocardiogram was performed using 2D, color flow Doppler and spectral Doppler. [facility] GLUCOSE (AUTOMATED)2023-09-18 13:02:47* Test Item Value Reference Range Interpretation Comme nts POCT GLU (test code = 3137115487) 143 mg/dL 70-110 H Lab Interpretation (test cod e = 13515-3) Abnormal [facility] GLUCOSE (AUTOMATED)2023-09-18 01:36:15* Test Item Value Reference Range Interpretation Comme nts POCT GLU (test code = 0280191320) 106 mg/dL 70-110 Lab Interpretation (test cod e = 78319-5) Normal [facility] GLUCOSE (AUTOMATED)2023-09-18 01:01:54* Test Item Value Reference Range Interpretation Comme nts POCT GLU (test code = 9891096874) 50 mg/dL 70-110 LL Lab Interpretation (test cod e = 62064-7) Abnormal [facility] Lead ROUTINE [id number] 00:05:57* Test Item Value Reference Range Interpretation Comme nts Lab Interpretation (test cod e = 98771-0) Abnormal [facility] GLUCOSE (AUTOMATED)2023-09-17 21:31:46* Test Item Value Reference Range Interpretation Comme nts POCT GLU (test code = 6266942787) 154 mg/dL 70-110 H Lab Interpretation (test cod e = 40177-4) Abnormal [facility] SouthThyroid Stimulating [id number] 20:04:39 * Test Item Value Reference Range Interpretation Comme nts TSH (test code = 1005350155) 0.89 0.45-4.70 Biotin has been reported to cause a negative bias, interpret results relative to patient's use of biotin. Lab Interpretation (test code = 95408-3) Normal [facility] ABDOMEN PELVIS WO [id number] 19:54:29ORDERING PROVIDER: EMILIA IBARRAORY: Flank pain, kidney stone suspected TECHNIQUE: CT acquisition of the abdomen and pelvis without contrast. Thisexamination was performed according to ALARA principles.COMPARISON(S): CT chest angiogram 04/17/2023 FINDINGS:Motion artifact mildly limits assessment. LOWER CHEST: Completely imaged cardiac electrodes in the right atrium andright ventricle, as well as a subcutaneous lead, not connected to a device,which appears to extend into the right ventricular cavity. Moderate/severemitral annular calcification. Mild/moderate aortic valvular calcification.At least moderate coronary artery calcifications. Hiatal hernia. Improvedsmall, right larger thanleft, low attenuation pleural effusions withdecreased posterior dependent consolidations favoring improvingatelectasis. ABDOMEN/PELVIS:Liver: Normal.Gallbladder/biliary: Suspect layering gallbladder sludge. No CT evidence ofinflammation. No biliary ductal dilation. Pancreas: Normal.Spleen: Normal.Ad renal glands: Normal. Kidneys and ureters: Normal.Bladder: Normal.Reproductive organs: Penile tunical calcifications. Stomach/bowel: Mild colonic stool volume. No obstruction.Appendix: Normal. Lymph nodes: No lymphadenopathy.Peritoneum: No intraperitoneal free air. No intraperitoneal free fluid.Vessels: Calcification in the left common femoral vein and diminishedcaliber external iliac vein. Extensive pelvic subcutaneous varices. Severecalcific plaque. MUSCULOSKELETAL:Abdominal wall: No large hernia or soft tissue mass. Ventral abdominalsubcutaneous fat stranding and skin thickening, probably related tomedicine administration.Bones: No acute osseous abnormality.[facility] SouthGlycosylated Hemoglobin (A1C)2023-09-17 19:29:25* Test Item Value Reference Range Interpretation Comme nts HGB A1C (test code = 4548-4) 8.0 % 4.0-5.7 H RYANN (test code = RYANN) Reference RangesNormal: <5.7%Prediabetes: 5.7 - 6.4%Diabetes: > 6.5% Lab Interpretation (test code = 57105-2) Abnormal [facility]CT CHEST PULMONARY [id number] 17:36:52PROCEDURE: CT CHEST WITH CONTRAST- CHEST PE PROTOCOL CLINICAL INDICATION: Pulmonary embolism (PE) suspected, positive D-dimer ? Comparison: ?Prior CT chest 04/17/2023 TECHNIQUE: TECHNIQUE: Volumetrichelical CT [facility] (lung apices to bases) with IV contrast. Images were reconstructedincluding 1.25 ?and 2.5 mm axial images. Sagittal,coronal MPR images andaxial MIP images were performed. FINDINGS: Devices: None HEART AND GREAT VESSELS: The opacification of the pulmonary vasculature isappropriate. No filling defects are seen through the level of the segmentalpulmonary arteries. The pulmonary trunk measures 3.7 cm. The thoracic aorta is normal in caliber with Mild atheroscleroticcalcifications. Coronary stents are seen. The heart is enlarged. No pericardialabnormalities are identified. The RV to LV is normal. LUNGS AND PLEURA: The lungs are adequately expanded. Small bilateralpleural effusions with adjacent atelectasis. LYMPH NODES: Scattered small lymph nodesin both sides of the mediastinumand hilar regions. No evidence of intrathoracic lymphadenopathy. MEDIASTINUM AND LOWER NECK: No central airway lesions are detected.. Smallhiatal hernia. The included thyroid gland appears normal. VISUALIZED UPPER ABDOMEN: The included solid organs and hollow viscusappear within normal limits. OSSEOUS STRUCTURES AND SOFT TISSUES: Chronic fracture deformities of theposterior right lower ribs. The soft tissues appear normal. [facility] SouthTROPONIN [id number] 16:49:07* Test Item Value Reference Range Interpretation Comme nts TROPONIN I (test code = 0696254101) 0.053 ng/mL <=0.034 H RYANN (test code = RYANN) Reference (Normal) Range (defined by the 99th percentile reference limit): <= 0.034 ng/mL Note: Cardiac troponin begins to rise 3-4 hours after the onset of ischemia. Repeat in 4-6 hours if the sample was drawn within 3-4 hours of the onset of the symptom and found normal. Diagnosis of myocardial injury is made with acute changes in cTn concentrations with at least one serial sample above the 99th percentile upper reference limit (URL), taken together with the patient's clinical presentation. Biotin has been reported to cause a negative bias, interpret results relative to patient's use of biotin. Lab Interpretation (test code = 95630-6) Abnormal [facility]. METABOLIC PANEL (29162)2023-09-17 16:47:52* Test Item Value Reference Range Interpretation Comme nts NA (test code = 8525763388) 135 mmol/L 135-145 K (test code = 2104782039) 4.4 mmol/L 3.5-5.0 CL (test code = 7877116426) 102 mmol/L 98-108 CO2 TOTAL (test code = 7565086373) 28 mmol/L 23-31 AGAP (test code = 8448272320) 5 2-16 BUN (test code = 7738659782) 11 mg/dL 7-23 GLUCOSE (test code = 3652748499) 200 mg/dL 70-110 H CREATININE (test code = 2160-0) 0.59 mg/dL 0.60-1.25 L TOTAL BILI (test code = 8452421739) 0.8 mg/dL 0.1-1.1 CALCIUM (test code = 4195118029) 8.7 mg/dL 8.6-10.6 T PROTEIN (test code = 0457077195) 6.3 g/dL 6.3-8.2 ALBUMIN (test code = 1838101887) 3.6 g/dL 3.5-5.0 ALK PHOS (test code = 9624537486) 87 U/L 34-122 ALTv (test code = 1742-6) 30 U/L 5-50 AST(SGOT) (test code = 0201436046) 23 U/L 13-40 eGFR (test code = 71015-4) 106.3 mL/min/1.73m2 CKD-EPI eGFR (2020). Assuming creatinine has been stable day-to-day for at least three months, the eGFR indicates Category G1 (>= 90 mL/min/1.73 m2) Lab Interpretation (test code = 97960-8) Abnormal [facility] SouthN-TERMINAL ENP-[id number] 16:47:52* Test Item Value Reference Range Interpretation Comme nts NT-proBNP (test code = 26566-6) 2820 pg/mL <=125 H RYANN (test code = RYANN) Positive: Heart Failure Likely Lab Interpretation (test code = 58220-6) Abnormal [facility] SouthD-[id number] 16:34:50* Test Item Value Reference Range Interpretation Comments D-DIMER (test code = 9004774098) 0.84 See_Comment H [Automated message] The system which generated this result transmitted reference range: <0.50 ?g/mL (FEU). The reference range was not used to interpret this result as normal/abnormal. RYANN (test code = RYANN) This test may be used in conjunction with a clinical pretest probability (PTP) assessment model to exclude venous thromboembolism (VTE) in patients suspected of deep venous thrombosis (DVT) and pulmonary embolism (PE) A D-Dimer value less than 0.50 ?g/ml (FEU) has a negative predicative value of 96 to 100% (95% CI)and 97 to 100% (95% CI) as an aid in the diagnosis of deep vein thrombosis (DVT) and pulmonary embolism when there is low or moderate pretest probability of PE or DVT. D-Dimer values are expressed in initial fibrinogen equivalent units (FEU)" The assay results should be used with other information, including the clinical context, in forming a diagnosis. Lab Interpretation (test code = 48454-0) Abnormal [facility] with [id number] 16:20:09* Test Item Value Reference Range Interpretation Comme nts WBC (test code = 6690-2) 10.27 4.20-10.70 RBC (test code = 789-8) 4.51 4.26-5.52 HGB (test code = 718-7) 11.6 g/dL 12.2-16.4 L HCT (test code = 4544-3) 36.5 % 38.4-49.3 L MCV (test code = 787-2) 80.9 fL 81.7-95.6 L MCH (test code = 785-6) 25.7 pg 26.1-32.7 L MCHC (test code = 786-4) 31.8 g/dL 31.2-35.0 RDW-SD (test code = 08046-9) 42.7 fL 38.5-51.6 RDW-CV (test code = 788-0) 14.6 % 12.1-15.4 PLT (test code = 777-3) 298 150-328 MPV (test code = 87011-0) 9.9 fL 9.8-13.0 NRBC/100 WBC (test code = 7077333612) 0.0 0.0-10.0 NRBC x10^3 (test code = 5668520300) See_Comment [Automated nPickera ge] The system which generated this result transmitted reference range: 10*3/?L. The reference range was not used to interpret this result as normal/abnormal. GRAN MAT (NEUT) % (test code = 770-8) 72.0 % IMM GRAN % (test code = 4048744113) 1.10 % LYMPH % (test code = 736-9) 15.2 % MONO % (test code = 5905-5) 7.9 % EOS % (test code = 713-8) 3.2 % BASO % (test code = 706-2) 0.6 % GRAN MAT x10^3(ANC) (test code = 3372957067) 7.40 10*3/uL 1.99-6.95 H IMM GRAN x10^3 (test code = 3856575601) 0.11 10*3/uL 0.00-0.06 H LYMPH x10^3 (test code = 731-0) 1.56 10*3/uL 1.09-3.23 MONO x10^3 (test code = 742-7) 0.81 10*3/uL 0.36-1.02 EOS x10^3 (test code = 711-2) 0.33 10*3/uL 0.06-0.53 BASO x10^3 (test code = 704-7) 0.06 10*3/uL 0.01-0.09 Lab Interpretation (test code = 09841-9) Abnormal [id number] 07:47:00* Test Item Value Reference Range Interpretation Comme nts GLUBED (test code = GLUBED) 98 MG/DL 70-105 N - XR CHEST 1 [id number] 13:06:00 [facility] GUZ[facility] DEDE : 1955 Sex: MPatient Name: WILLAM GUZMÁNNIKA AGUAYO Unit No: [id number] EXAMS: CPT CODE: [id number] XR CHEST 1 V 68797 Clinical Information: Status post PPM. Generalized weakness Dictation Location: A 1 COMPARISON: 05/14/2023. FINDINGS: Portable frontal view of the chest taken at 1226 hours shows monitoring electrodes overlying the chest wall. Sternal wire sutures. New dual-chamber pacemaker via the left subclavian route. No apparent insertional complication. Heart size and pulmonary vessels normal. Minimal left basilar opacity is again noted. Right lung is grossly clear. No interval bone changes. IMPRESSION: 1. New dual-chamber pacemaker without apparent insertional constipation. 2. Otherwise unchanged. at 1306 Reported and signed by:EMMA ABDI M.D. CC: Ronnell Banerjee MD; Keagan Heath MD; Rajesh Kilgore MD Technologist: Tomi Espinal Time: DAP (Gy m2): Air Kerma (mGy): Trscr Dt/Tm: 05/18/2023 (1306) by:Kathi Printed Date/Time: 05/18/2023 (1309) Name: KRYSTALLUISNIKA AGUAYO [facility] Phys: [id number]- Ronnell Banerjee [address] : 1955 Age: 67 Sex: [place] [address] Acct No: [id number] Loc: P.0403 A Exam Date: 05/18/2023 Status: ADM IN PH: FAX: PAGE 1 Signed [id number] 17:27:00* Test Item Value Reference Range Interpretation Comme nts GLUBED (test code = GLUBED) 180 MG/DL 70-105 H [id number] 11:33:00* Test Item Value Reference Range Interpretation Comme nts GLUBED (test code = GLUBED) 271 MG/DL 70-105 H [id number] 08:11:00* Test Item Value Reference Range Interpretation Comme nts GLUBED (test code = GLUBED) 160 MG/DL 70-105 H [id number] 19:53:00* Test Item Value Reference Range Interpretation Comme nts GLUBED (test code = GLUBED) 274 MG/DL 70-105 H [id number] 17:01:00* Test Item Value Reference Range Interpretation Comme nts GLUBED (test code = GLUBED) 384 MG/DL 70-105 HH - MRV HEAD WO [id number] 12:28:00 [facility] : 1955 Sex: MPatient Name: LUIS GUZMÁN Unit No: [id number] EXAMS: CPT CODE: [id number] MRV HEAD WO CONT 34640 CLINICAL INFORMATION: Elevated troponin. Generalized weakness. 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 Technique: Zgmm-ii-birauu study was viewed in the rotating and tumbled frame of reference. FINDINGS: The superior sagittal sinus is patent. The inferior sagittal sinus is partially visualized. The vein of Randy,straight sinus, and torcular are incompletely visualized although appear patent. There is mild asymmetry of the posterior venous drainage lateralizing to the right although both appear patent. Some of this could be on the basis of mass effect due to the regional brain edema secondary to the known infarct. IMPRESSION: 1. No evidence of dural venous thrombosis identified. 2. Decreased venous drainage at the left transverse sinus possibly related to mass effect. 3. Perhaps follow-up with CTA with delayed venous images could be of additional diagnostic benefit. at 1228 Reported and signed by: EMMA ABDI M.D. CC: Keagan Heath MD; Rajesh Kilgore MD; Nadiya Bergman MD Technologist: FOSTER,ALVARENGA RT (MR) Trscr Dt/Tm: 05/16/2023 (1227) by:Kathi Printed Date/Time: 05/16/2023 (6765) Name: LUIS GUZMÁN [facility] Phys: Nadiya Pierre MD [address] : 1955 Age: 67 Sex: [place] [address] Loc: P.0403 A Exam Date: 05/16/2023 Status: ADM IN PH: FAX: PAGE 1 Signed Report- MRI BRAIN W WO [id number] 11:58:00 [facility] : 1955 Sex: MPatient Name: LUIS GUZMÁN Unit No: [id number] EXAMS: CPT CODE: [id number] MRI BRAIN W WO CONT 42396 CLINICAL INFORMATION: Left occipital lesion. Generalized weakness. Visual problems Dictation location: A 1 COMPARISON: Head CT 05/15/2023 showed a parenchymal low-density lesion in the leftoccipitotemporal region with subtle increased density of the involved cortex. Technique: Sagittal, axial and coronal scans were done with T1, T2, FLAIR, gradient, diffusion, and postcontrast fat-suppressed T1 images. FINDINGS: Abnormal appearance in the left temporal occipital region and the posterior cerebral artery distribution with a large area of brain edema and gliosis also involving the left forceps major of the corpus callosum. This shows a large area of hemorrhagic transformation of the involved brain cortical regions consistent with post stroke laminar necrosis. This shows slightly elevated cortical density on the comparison CT. There is localized brain edema with sulcal effacementand mass effect on the atrium and posterior body of the left lateral ventricle. No midline shift. No extra-axial hemorrhage. No acute findings in the remainder of the brain. Mild deep white matter microvascular changes are noted bilaterally. Postcontrast study shows patchy areas of cortical enhancement in the involved brain regions. The orbits, paranasal sinuses, and skull base appear unremarkable. Flow-voids are seen in the major arteries at the base of the brain and in the larger dural venous sinuses. IMPRESSION: 1. 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 This includes involvement of the left visual cortex and a right homonymous hemianopsia would be expected. 2. 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 3. No space-occupying intracranial mass is otherwise identified. at 1158 Reported and signed by: EMMA ABDI M.D. CC: Keagan Heath MD; Rajesh Kilgore MD; Nadiya Bergman MD Technologist: COLETTE FOSTER RT (MR) Trscr Dt/Tm: 05/16/2023 (4407) by:StephenAGV Printed Date/Time: 05/16/2023 (8714) Name: [facility] Phys: Nadiya Pierre MD [address] : 1955 Age: 67 Sex: [place] [address] Loc: P.0403 A Exam Date: 05/16/2023 Status: ADM IN PH: FAX: PAGE 1 Signed [id number] 11:20:00* Test Item Value Reference Range Interpretation Comme nts GLUBED (test code = GLUBED) 337 MG/DL 70-105 HH [id number] 07:34:00* Test Item Value Reference Range Interpretation Comme nts GLUBED (test code = GLUBED) 307 MG/DL 70-105 HH [id number] 21:32:00* Test Item Value Reference Range Interpretation Comme nts GLUBED (test code = GLUBED) 346 MG/DL 70-105 HH [id number] 16:22:00* Test Item Value Reference Range Interpretation Comme nts GLUBED (test code = GLUBED) 130 MG/DL 70-105 H - CT ANGIO [id number] 12:11:00 [facility] 1955 Sex: MPatient Name: LUIS GUZMÁN Unit No: [id number] EXAMS: CPT CODE: [id number] CT ANGIO HEAD 28078 EXAM: - CT HEAD/BRAIN W/O CONT, - CT ANGIO NECK, - CT ANGIO HEAD LOCATION: A1 HISTORY: Double vision (left eye) TECHNIQUE: CT head without:Axial tomograms through the brain were obtained withoutintravenous contrast. Coronal and sagittal reformatted images are provided. CTA head: Axial CT images were obtained from the skull base to the vertex after intravenous contrast utilizing CTA protocol. Coronal and sagittal maximum intensity projection images are provided. CTA neck: Axial CT images were obtained from the aortic arch to the skull base after intravenous contrast utilizing CTA protocol. Coronal and sagittal maximum intensity projection images are provided. This exam was performed according to our departmental dose-optimization program, which includes automated exposure control, adjustment of the mA and/or kV according to patient size and/or use of iterative reconstruction technique. COMPARISON: None available time of interpretation. FINDINGS: CT head without: There is a hetero genous area of white matter hypodensity and gyral irregularity seen at the left occipital lobe (series 2, image 13) measuring approximately 6.3 x 4.5 cm. This is concerning for underlying infiltrative mass. There is no significant mass effect or midline shift seen. Periventricular and deep white matter hypodensities are identified indicative of chronic microvascular ischemic changes. There is diffuse prominence of the extra-axial spaces and ventricles. The orbits are unremarkable. The visualized paranasal sinuses and mastoid air cells are clear. No acute fracture is present. For the purposesof this dictation, hemodynamically significant stenosis is characterized as greater than 50%. CTA head: The petrous, cavernous, and clinoid internal carotid arteries do not demonstrate hemodynamically significant stenoses. Name: [facility] Phys: Mckay Campa [address] : 1955 Age: 67 Sex: [place] [address] Loc: P.0403A Exam Date: 05/15/2023 Status: ADM IN PH: FAX: PAGE 1 Signed Report (CONTINUED) Patient Name: LUIS GUZMÁN Unit No: [id number] EXAMS: CPT CODE: [id number] CT ANGIO HEAD 15706 (Continued) The anterior and middle cerebral arteries do not demonstrate hemodynamically significant stenoses. [place] of both vertebral arteries into the basilar. Basilar artery and posterior cerebral arteries are do not demonstrate hemodynamically significant stenoses. The dural venous sinuses are patent. The left basal vein of Max is prominent and is opacified similar to the cerebral arteries suggestingsome fistulous connection with an artery, however exact area of fistulous connection is difficult to clearly identified. CTA neck: The origins of the great vessels from the aortic arch do not demonstrate hemodynamically significant stenoses. The bilateral common carotid arteries and bulbs are without hemodynamically significant stenosis. The internal carotid arteries do not demonstrate hemodynamically significant stenosis. Left vertebral artery is dominant. Both vertebral arteries are fully patent. No incidental soft tissue findings. IMPRESSION: 1. Heterogenous area of white matter hypodensity and gyral irregularity at the left occipital lobe concerning for underlying infiltrative mass. Recommend further evaluation with MRI brain with and without contrast. 2. Prominent left basal vein of Max which is opacified similar to the cerebral arteries suggesting some underlying fistulousconnection, however none is clearly identifiable. This may be related to the abnormality at the left occipital lobe as described above. 3. No aneurysm, occlusion, or dissection. No intracranial hemorrhage is seen. at 1211 Reported and signed by: PRACHI URIBE M.D. Name: [facility] Phys: Mckay Campa [address] : 1955 Age: 67 Sex: [place] [address] Loc: P.0403 A Exam Date: 05/15/2023 Status: ADM IN PH: FAX: PAGE 2 Signed Report (CONTINUED) Patient Name: LUIS GUZMÁN Unit No: [id number] EXAMS: CPT CODE: [id number] CT ANGIO HEAD 31442 (Continued) CC: Keagan Heath MD; Mckay العلي; Rajesh Kilgore MD Technologist: Keesha Johnson CTDI: DLP: Trscr Dt/Tm: 05/15/2023 (1211) by:[email or web address] Printed Date/Time: 05/15/2023 (1215) Name: [facility] Phys: Mckay Campa [address] : 1955 Age: 67 Sex: [place] [address] Loc: P.0403 A Exam Date: 05/15/2023 Status: ADM IN PH: FAX: PAGE 3 Signed Report- CT ANGIO [id number] 12:11:00 [facility] : 1955 Sex: MPatient Name: LUIS GUZMÁN Unit No: [id number] EXAMS: CPT CODE: [id number] CT ANGIO NECK 37971 EXAM: - CT HEAD/BRAIN W/O CONT, - CT ANGIO NECK, - CT ANGIO HEAD LOCATION: A1 HISTORY: Double vision (left eye) TECHNIQUE: CT head without:Axial tomograms through the brain were obtained withoutintravenous contrast. Coronal and sagittal reformatted images are provided. CTA head: Axial CT images were obtained from the skull base to the vertex after intravenous contrast utilizing CTA protocol. Coronal and sagittal maximum intensity projection images are provided. CTA neck: Axial CT images were obtained from the aortic arch to the skull base after intravenous contrast utilizing CTA protocol. Coronal and sagittal maximum intensity projection images are provided. This exam was performed according to our departmental dose-optimization program, which includes automated exposure control, adjustment of the mA and/or kV according to patient size and/or use of iterative reconstruction technique. COMPARISON: None available time of interpretation. FINDINGS: CT head without: There is a hetero genous area of white matter hypodensity and gyral irregularity seen at the left occipital lobe (series 2, image 13) measuring approximately 6.3 x 4.5 cm. This is concerning for underlying infiltrative mass. There is no significant mass effect or midline shift seen. Periventricular and deep white matter hypodensities are identified indicative of chronic microvascular ischemic changes. There is diffuse prominence of the extra-axial spaces and ventricles. The orbits are unremarkable. The visualized paranasal sinuses and mastoid air cells are clear. No acute fracture is present. For the purposesof this dictation, hemodynamically significant stenosis is characterized as greater than 50%. CTA head: The petrous, cavernous, and clinoid internal carotid arteries do not demonstrate hemodynamically significant stenoses. Name: [facility] Phys: Mckay Campa [id number] : 1955 Age: 67 Sex: [place] [phone] Loc: P.0403 A Exam Date: 05/15/2023 Status: ADM IN PH: FAX: PAGE 1 Signed Report (CONTINUED) Patient Name: LUIS GUZMÁN Unit No: [id number] EXAMS: CPT CODE: [id number] CT ANGIO NECK 88299 (Continued) The anterior and middle cerebral arteries do not demonstrate hemodynamically significant stenoses. [place] of both vertebral arteries into the basilar. Basilar artery and posterior cerebral arteries are do not demonstrate hemodynamically significant stenoses. The dural venous sinuses are patent. Theleft basal vein of Max is prominent and is opacified similar to the cerebral arteries suggesting some fistulous connection with an artery, however exact area of fistulous connection is difficult to clearly identified. CTA neck: The origins of the great vessels from the aortic arch do not demonstrate hemodynamically significant stenoses. The bilateral common carotid arteries and bulbs are without hemodynamically significant stenosis. The internal carotid arteries do not demonstrate hemodynamically significant stenosis. Left vertebral artery is dominant. Both vertebral arteries are fullypatent. No incidental soft tissue findings. IMPRESSION: 1. Heterogenous area of white matter hypodensity and gyral irregularity at the left occipital lobe concerning for underlying infiltrative mass. Recommend further evaluation with MRI brain with and without contrast. 2. Prominent left basal vein of Max which is opacified similar to the cerebral arteries suggesting some underlying fistulous connection, however none is clearly identifiable. This may be related to the abnormality at the left occipital lobe as described above. 3. No aneurysm, occlusion, or dissection. No intracranial hemorrhage is seen. at 1211 * * Reported and signed by: PRACHI URIBE M.D. Name: [facility] Phys: Mckay Campa [address] : 1955 Age: 67 Sex: [place] [address] Loc: P.0403 A Exam Date: 05/15/2023 Status: ADM IN PH: FAX: PAGE 2 Signed Report (CONTINUED) Patient Name: LUIS GUZMÁN Unit No: [id number] EXAMS: CPT CODE: [id number] CT ANGIO NECK 38891 (Continued) CC: Keagan Heath MD; Mcaky العلي; Rajesh Kilgore MD Technologist: Keesha Johnson CTDI: 60.79 DLP: 1623 Trscr Dt/Tm: 05/15/2023 (1211) by:[email or web address] Printed Date/Time: 05/15/2023 (8054) Name: [facility] Phys: Mckay Campa [address] : 1955 Age: 67 Sex: [place] [address] Loc: P.0403 A Exam Date: 05/15/2023 Status: ADM IN PH: FAX: PAGE 3 Signed Report- CT HEAD/BRAIN W/O [id number] 12:11:00 [facility] 1955 Sex: MPatient Name: LUIS GUZMÁN Unit No: [id number] EXAMS: CPT CODE: [id number] CT HEAD/BRAIN W/O CONT 17827 EXAM: - CT HEAD/BRAIN W/O CONT, - CT ANGIO NECK, - CT ANGIO HEAD LOCATION: A1 HISTORY: Double vision (left eye) TECHNIQUE: CT head without:Axial tomograms through the brain were obtained without intravenous contrast. Coronal and sagittal reformatted images are provided. CTA head: Axial CT images were obtained from the skull base to the vertex after intravenous contrast utilizing CTA protocol. Coronal and sagittal maximum intensity projection images are provided. CTA neck: AxialCT images were obtained from the aortic arch to the skull base after intravenous contrast utilizingCTA protocol. Coronal and sagittal maximum intensity projection images are provided. This exam was p erformed according to our departmental dose-optimization program, which includes automated exposurecontrol, adjustment of the mA and/or kV according to patient size and/or use of iterative reconstruction technique. COMPARISON: None available time of interpretation. FINDINGS: CT head without: Thereis a heterogenous area of white matter hypodensity and gyral irregularity seen at the left occipital lobe (series 2, image 13) measuring approximately 6.3 x 4.5 cm. This is concerning for underlying infiltrative mass. There is no significant mass effect or midline shift seen. Periventricular and deep white matter hypodensities are identified indicative of chronic microvascular ischemic changes. There is diffuse prominence of the extra-axial spaces and ventricles. The orbits are unremarkable. The visualized paranasal sinuses and mastoid air cells are clear. No acute fracture is present. For the purposes of this dictation, hemodynamically significant stenosis is characterized as greater than 50%. CTA head: The petrous, cavernous, and clinoid internal carotid arteries do not demonstrate hemodynamically significant stenoses. Name: [facility] Phys: Mckay Campa [address] : 1955 Age: 67 Sex: [place] [address] Loc: P.0403 A Exam Date: 05/15/2023 Status: ADM IN PH: FAX: PAGE 1 Signed Report (CONTINUED) PatientName: LUIS GUZMÁN Unit No: [id number] EXAMS: CPT CODE: [id number] CT HEAD/BRAIN W/O CONT 74388 (Continued) The anterior and middle cerebral arteries do not demonstrate hemodynamically significant stenoses. [place] of both vertebral arteries into the basilar. Basilar artery and posterior cerebral arteries are do not demonstrate hemodynamically significant stenoses. The dural venous sinuses are patent. The left basal vein of Max is prominent and is opacified similar to the cerebral arteries suggesting some fistulous connection with an artery, however exact area of fistulous connection is difficult to clearly identified. CTA neck: The origins of the great vessels from the aortic arch do not demonstrate hemodynamically significant stenoses. The bilateral common carotid arteries and bulbs are without hemodynamically significant stenosis. The internal carotid arteries do not demonstrate hemodynamically significant stenosis. Left vertebral artery is dominant. Both vertebralarteries are fully patent. No incidental soft tissue findings. IMPRESSION: 1. Heterogenous area of white matter hypodensity and gyral irregularity at the left occipital lobe concerning for underlyinginfiltrative mass. Recommend further evaluation with MRI brain with and without contrast. 2. Prominent left basal vein of Max which is opacified similar to the cerebral arteries suggesting someunderlying fistulous connection, however none is clearly identifiable. This may be related to the abnormality at the left occipital lobe as described above. 3. No aneurysm, occlusion, or dissection. No intracranial hemorrhage is seen. at 1211 Reported and signed by: PRACHI URIBE M.D. Name: [facility]ZM[facility] Phys: Mckay Campa [address] : 1955 Age: 67 Sex: M [place] [address] Loc: P.0403 A Exam Date: 05/15/2023 Status: ADM IN PH: FAX: PAGE2 Signed Report (CONTINUED) Patient Name: LUIS GUZMÁN Unit No: [id number] EXAMS: CPT CODE: [id number] CT HEAD/BRAIN W/O CONT 99450 (Continued) CC: Keagan Heath MD; Mckay العلي; Rajesh Kilgore MD Technologist: Keesha Johnson CTDI: DLP: Trscr Dt/Tm: 05/15/2023 (1211) by:[email or web address] Printed Date/Time: 05/15/2023 (1215) Name: [facility] Phys: Mckay Peña [address] : 1955 Age: 67 Sex: M [place] [id number] Acct No: [id number] Loc: P.0403 A Exam Date: 05/15/2023 Status: ADM IN PH: FAX: PAGE 3 Signed [id number] 12:05:00* Test Item Value Reference Range Interpretation Comme nts GLUBED (test code = GLUBED) 331 MG/DL 70-105 [id number] 07:40:00* Test Item Value Reference Range Interpretation Comme nts GLUBED (test code = GLUBED) 166 MG/DL 70-105 H Lactic Acid Whole [id number] 19:22:46* Test Item Value Reference Range Interpretation Comme nts LACTIC ACID (test code = 4210799467) 2.47 mmol/L 0.50-2.20 H Lab Interpretation (test cod e = 44464-4) [id number] 19:11:00* Test Item Value Reference Range Interpretation Comme nts GLUBED (test code = GLUBED) 311 MG/DL 70-105 HH TROPONIN [id number] 18:55:22* Test Item Value Reference Range Interpretation Comme nts TROPONIN I (test code = 3416464927) 0.096 ng/mL <=0.034 H RYANN (test code = RYANN) Reference (Normal) Range (defined by the 99th percentile reference limit): <= 0.034 ng/mL Note: Cardiac troponin begins to rise 3-4 hours after the onset of ischemia. Repeat in 4-6 hours if the sample was drawn within 3-4 hours of the onset of the symptom and found normal. Diagnosis of myocardial injury is made with acute changes in cTn concentrations with at least one serial sample above the 99th percentile upper reference limit (URL), taken together with the patient's clinical presentation. Biotin has been reported to cause a negative bias, interpret results relative to patient's use of biotin. Lab Interpretation (test code = 81515-4) [facility]normal [facility] METABOLIC PANEL ([id number] 18:43:42* Test Item Value Reference Range Interpretation Comme nts NA (test code = 1260772313) 131 mmol/L 135-145 L K (test code = 4238445520) 5.1 mmol/L 3.5-5.0 H CL (test code = 2799072815) 96 mmol/L 98-108 L CO2 TOTAL (test code = 7136007481) 26 mmol/L 23-31 AGAP (test code = 1062191333) 9 2-16 BUN (test code = 8905695977) 11 mg/dL 7-23 GLUCOSE (test code = 2764856160) 379 mg/dL 70-110 H CREATININE (test code = 5606296584) 0.81 mg/dL 0.60-1.25 TOTAL BILI (test code = 8774581453) 0.7 mg/dL 0.1-1.1 CALCIUM (test code = 5571233786) 8.5 mg/dL 8.6-10.6 L T PROTEIN (test code = 5895039472) 6.1 g/dL 6.3-8.2 L ALBUMIN (test code = 8533070966) 3.3 g/dL 3.5-5.0 L ALK PHOS (test code = 4404573858) 129 U/L 34-122 H ALTv (test code = 1742-6) 20 U/L 5-50 AST(SGOT) (test code = 7549612835) 20 U/L 13-40 eGFR (test code = 44163-1) 96.6 mL/min/1.73m2 CKD-EPI eGFR (2020). Assuming creatinine has been stable day-to-day for at least three months, the eGFR indicates Category G1 (>= 90 mL/min/1.73 m2) Lab Interpretation (test code = 64748-3) Abnormal [facility] WITH [id number] 18:32:26* Test Item Value Reference Range Interpretation Comme nts WBC (test code = 6690-2) 15.26 See_Comment H [Automated message] The system which generated this result transmitted reference range: 4.20 - 10.70 10*3/?L. The reference range was not used to interpret this result as normal/abnormal. RBC (test code = 789-8) 3.77 See_Comment L [Automated message] The system which generated this result transmitted reference range: 4.26 - 5.52 10*6/?L. The reference range was not used to interpret this result as normal/abnormal. HGB (test code = 718-7) 10.5 g/dL 12.2-16.4 L HCT (test code = 4544-3) 30.8 % 38.4-49.3 L MCV (test code = 787-2) 81.7 fL 81.7-95.6 MCH (test code = 785-6) 27.9 pg 26.1-32.7 MCHC (test code = 786-4) 34.1 g/dL 31.2-35.0 RDW-SD (test code = 97415-5) 40.6 fL 38.5-51.6 RDW-CV (test code = 788-0) 14.2 % 12.1-15.4 PLT (test code = 777-3) 310 See_Comment [Automated message] The system which generated this result transmitted reference range: 150 - 328 10*3/?L. The reference range was not used to interpret this result as normal/abnormal. MPV (test code = 12547-9) 9.5 fL 9.8-13.0 L NRBC/100 WBC (test code = 0548393279) 0.0 See_Comment [Automated message] The system which generated this result transmitted reference range: 0.0 - 10.0 /100 WBCs. The reference range was not used to interpret this result as normal/abnormal. NRBC x10^3 (test code = 2115401205) See_Comment [Automated message] The system which generated this result transmitted reference range: 10*3/?L. The reference range was not used to interpret this result as normal/abnormal. GRAN MAT (NEUT) % (test code = 770-8) 82.8 % IMM GRAN % (test code = 5764471736) 1.60 % LYMPH % (test code = 736-9) 7.3 % MONO % (test code = 5905-5) 5.6 % EOS % (test code = 713-8) 2.4 % BASO % (test code = 706-2) 0.3 % GRAN MAT x10^3(ANC) (test code = 7595301840) 12.63 10*3/uL 1.99-6.95 H IMM GRAN x10^3 (test code = 9227195266) 0.24 10*3/uL 0.00-0.06 H LYMPH x10^3 (test code = 731-0) 1.11 10*3/uL 1.09-3.23 MONO x10^3 (test code = 742-7) 0.86 10*3/uL 0.36-1.02 EOS x10^3 (test code = 711-2) 0.37 10*3/uL 0.06-0.53 BASO x10^3 (test code = 704-7) 0.05 10*3/uL 0.01-0.09 Lab Interpretation (test code = 11792-6) [facility]normal [facility] [id number] 18:01:00* Test Item Value Reference Range Interpretation Comme nts SODIUM (test code = NA) 134 mmol/L 136-145 L POTASSIUM (test code = K) 4.2 mmol/L 3.5-5.1 N CHLORIDE (test code = CL) 100 mmol/l 98-107 N CARBON DIOXIDE (test code = CO2) 27 mmol/L 20-31 N GLUCOSE (test code = GLU) 319 mg/dL 74-106 H BLOOD UREA NITROGEN (test code = BUN) 8 mg/dL 9-23 L GLOMERULAR FILTRATION RATE (test code = GFR) >=60 max estimate mL/min >60 The Glomerular Filtration Rate is a calculated parameterbased on serum Creatinine, patient age and sex. GFR valuesless than 60 mL/min/1.73 square meters are indicative ofChronic Kidney Disease. Values less than 15 mL/min/1.73square meters indicate Kidney failure. The calculation forGFR is based on the CKD-EPI (2020) calculation. This formulais race indifferent and is the recommended formula for GFRby the National Kidney Foundation for Adults.The GFR will not calculate if the sex is unknown or if thepatient's age is <18 years. CREATININE (test code = CREAT) 0.80 mg/dL 0.70-1.30 N TOTAL PROTEIN (test code = PROT) 5.7 g/dL 5.7-8.2 N ALBUMIN (test code = ALB) 3.5 g/dL 3.2-4.8 N CALCIUM (test code = CA) 8.0 mg/dL 8.7-10.4 L BILIRUBIN TOTAL (test code = BILT) 0.6 mg/dL 0.3-1.2 N SGOT/AST (test code = AST) 14 U/L <34 N SGPT/ALT (test code = ALT) 15 U/L 10-49 N ALKALINE PHOSPHATASE (test code = ALKP) 131.0 U/L 46-116 H LACTIC [id number] 18:01:00* Test Item Value Reference Range Interpretation Comme nts LACTIC ACID (test code = LACT) 1.60 mmol/L 0.5-2.0 N B-TYPE NATRIURETIC [id number] 18:01:00* Test Item Value Reference Range Interpretation Comme nts B-TYPE NATRIURETIC PEPTIDE ( test code = BNP) 430 pg/mL <100 H [id number] 18:01:00* Test Item Value Reference Range Interpretation Comme nts TROPONIN-I (test code = TROPI) 80.0 pg/mL 38.73-80.22 N - XR CHEST 1 [id number] 17:52:00 [facility] 1955 Sex: MPatient Name: LUIS GUZMÁN Unit No: [id number] EXAMS: CPT CODE: [id number] XR CHEST 1 V 18144 Dictation location: Portable semierect AP film of the chest, one view, 05/14/23 Comparison exam: 05/06/23 chest x-ray exam CLINICAL HISTORY: Generalized weakness Heart size is prominent. Again left basilar density probable small left-sided pleural effusion versus pleural scarring probably un changed given technical factors. Right lung is clear. No evolving process. IMPRESSION: Stable findings from the prior study Electronically Signed by ALMA SORIA M.D. on 4at 1752 Reported and signed by: ALMA SORIA M.D. CC: Deuce Ba MD; No Primary Care Physician Technologist: MIAN ADAMS RT (R); Keesha Lou Fluoro Time: DAP (Gy m2): Air Kerma (mGy): Trscr Dt/Tm: 05/14/2023 (834) by:[email or web address] Printed Date/Time: 05/14/2023 (458) Name:[facility] Phys: Deuce Morocho MD [address] : 1955 Age: 67 Sex: [place] [id number] Loc: MARY 4 Exam Date: 05/14/2023 Status: ADM IN PH: FAX: PAGE 1 Signed ReportCBC W/AUTO [id number] 17:04:00 * Test Item Value Reference Range Interpretation Comme nts WHITE BLOOD CELL (test code = WBC) 14.2 x10 3/uL 4.8-10.8 H RED BLOOD CELL (test code = RBC) 3.76 x10 6/uL 4.70-6.10 L HEMOGLOBIN (test code = HGB) 10.2 g/dL 14.0-18.0 L HEMATOCRIT (test code = HCT) 30.2 % 42.0-52.0 L MEAN CELL VOLUME (test code = MCV) 80.3 fL 80.0-94.0 N MEAN CELL HGB (test code = MCH) 27.1 pg 27-31 N MEAN CELL HGB CONCENTRATION (test code = MCHC) 33.8 G/DL 33-36.5 N RED CELL DISTRIBUTION WIDTH (test code = RDW) 14.0 % 12.9-16.9 N PLATELET COUNT (test code = PLT) 315 x10 3/uL 150-440 N MEAN PLATELET VOLUME (test code = MPV) 9.4 fL 8.9-12.4 N NEUTROPHIL % (test code = NT%) 78.2 % 42.2-75.2 H LYMPHOCYTE % (test code = LY%) 11.4 % 20.5-51.1 L MONOCYTE % (test code = MO%) 6.6 % 1.7-9.3 N EOSINOPHIL % (test code = EO%) 2.2 % 0.0-7.0 N BASOPHIL % (test code = BA%) 0.4 % 0-2.5 N NEUTROPHIL # (test code = NT#) 11.11 x10 3/uL 1.80-7.70 H LYMPHOCYTE # (test code = LY#) 1.62 x10 3/uL 1.00-4.80 N MONOCYTE # (test code = MO#) 0.94 x10 3/uL 0.00-0.80 H EOSINOPHIL # (test code = EO#) 0.31 x10 3/uL 0.00-0.45 N BASOPHIL # (test code = BA#) 0.05 x10 3/uL 0.0-0.20 N [id number] 07:49:00* Test Item Value Reference Range Interpretation Comme nts GLUBED (test code = GLUBED) 251 MG/DL 70-105 H COMPREHENSIVE METABOLIC [id number] 05:35:00* Test Item Value Reference Range Interpretation Comme nts SODIUM (test code = NA) 138 mmol/L 136-145 N POTASSIUM (test code = K) 3.6 mmol/L 3.5-5.1 N CHLORIDE (test code = CL) 104 mmol/l 98-107 N CARBON DIOXIDE (test code = CO2) 27 mmol/L 20-31 N GLUCOSE (test code = GLU) 208 mg/dL 74-106 H BLOOD UREA NITROGEN (test code = BUN) 9 mg/dL 9-23 N GLOMERULAR FILTRATION RATE (test code = GFR) >=60 max estimate mL/min >60 The Glomerular Filtration Rate is a calculated parameterbased on serum Creatinine, patient age and sex. GFR valuesless than 60 mL/min/1.73 square meters are indicative ofChronic Kidney Disease. Values less than 15 mL/min/1.73square meters indicate Kidney failure. The calculation forGFR is based on the CKD-EPI (2020) calculation. This formulais race indifferent and is the recommended formula for GFRby the National Kidney Foundation for Adults.The GFR will not calculate if the sex is unknown or if thepatient's age is <18 years. CREATININE (test code = CREAT) 0.60 mg/dL 0.70-1.30 L TOTAL PROTEIN (test code = PROT) 5.1 g/dL 5.7-8.2 L ALBUMIN (test code = ALB) 3.1 g/dL 3.2-4.8 L CALCIUM (test code = CA) 8.1 mg/dL 8.7-10.4 L BILIRUBIN TOTAL (test code = BILT) 0.9 mg/dL 0.3-1.2 N SGOT/AST (test code = AST) 12 U/L <34 N SGPT/ALT (test code = ALT) 13 U/L 10-49 N ALKALINE PHOSPHATASE (test code = ALKP) 60.0 U/L 46-116 N CBC W/AUTO [id number] 05:11:00* Test Item Value Reference Range Interpretation Comme nts WHITE BLOOD CELL (test code = WBC) 10.2 x10 3/uL 4.8-10.8 N RED BLOOD CELL (test code = RBC) 3.46 x10 6/uL 4.70-6.10 L HEMOGLOBIN (test code = HGB) 9.4 g/dL 14.0-18.0 L HEMATOCRIT (test code = HCT) 27.5 % 42.0-52.0 L MEAN CELL VOLUME (test code = MCV) 79.5 fL 80.0-94.0 L MEAN CELL HGB (test code = MCH) 27.2 pg 27-31 N MEAN CELL HGB CONCENTRATION (test code = MCHC) 34.2 G/DL 33-36.5 N RED CELL DISTRIBUTION WIDTH (test code = RDW) 13.2 % 12.9-16.9 N PLATELET COUNT (test code = PLT) 234 x10 3/uL 150-440 N MEAN PLATELET VOLUME (test c ode = MPV) 9.8 fL 8.9-12.4 N NEUTROPHIL % (test code = NT%) 69.9 % 42.2-75.2 N LYMPHOCYTE % (test code = LY%) 14.6 % 20.5-51.1 L MONOCYTE % (test code = MO%) 11.6 % 1.7-9.3 H EOSINOPHIL % (test code = EO%) 2.9 % 0.0-7.0 N BASOPHIL % (test code = BA%) 0.4 % 0-2.5 N NEUTROPHIL # (test code = NT#) 7.14 x10 3/uL 1.80-7.70 N LYMPHOCYTE # (test code = LY#) 1.49 x10 3/uL 1.00-4.80 N MONOCYTE # (test code = MO#) 1.18 x10 3/uL 0.00-0.80 H EOSINOPHIL # (test code = EO#) 0.30 x10 3/uL 0.00-0.45 N BASOPHIL # (test code = BA#) 0.04 x10 3/uL 0.0-0.20 N [id number] 20:50:00* Test Item Value Reference Range Interpretation Comme nts GLUBED (test code = GLUBED) 274 MG/DL 70-105 H [id number] 16:52:00* Test Item Value Reference Range Interpretation Comme nts GLUBED (test code = GLUBED) 149 MG/DL 70-105 H [id number] 11:51:00* Test Item Value Reference Range Interpretation Comme nts GLUBED (test code = GLUBED) 289 MG/DL 70-105 H [id number] 07:41:00* Test Item Value Reference Range Interpretation Comme nts GLUBED (test code = GLUBED) 298 MG/DL 70-105 H COMPREHENSIVE METABOLIC [id number] 05:52:00* Test Item Value Reference Range Interpretation Comme nts SODIUM (test code = NA) 136 mmol/L 136-145 N POTASSIUM (test code = K) 4.0 mmol/L 3.5-5.1 N CHLORIDE (test code = CL) 102 mmol/l 98-107 N CARBON DIOXIDE (test code = CO2) 28 mmol/L 20-31 N GLUCOSE (test code = GLU) 217 mg/dL 74-106 H BLOOD UREA NITROGEN (test code = BUN) 13 mg/dL 9-23 N GLOMERULAR FILTRATION RATE (test code = GFR) >=60 max estimate mL/min >60 The Glomerular Filtration Rate is a calculated parameterbased on serum Creatinine, patient age and sex. GFR valuesless than 60 mL/min/1.73 square meters are indicative ofChronic Kidney Disease. Values less than 15 mL/min/1.73square meters indicate Kidney failure. The calculation forGFR is based on the CKD-EPI (202) calculation. This formulais race indifferent and is the recommended formula for GFRby the National Kidney Foundation for Adults.The GFR will not calculate if the sex is unknown or if thepatient's age is <18 years. CREATININE (test code = CREAT) 0.60 mg/dL 0.70-1.30 L TOTAL PROTEIN (test code = PROT) 5.1 g/dL 5.7-8.2 L ALBUMIN (test code = ALB) 3.2 g/dL 3.2-4.8 N CALCIUM (test code = CA) 7.9 mg/dL 8.7-10.4 L BILIRUBIN TOTAL (test code = BILT) 0.8 mg/dL 0.3-1.2 N SGOT/AST (test code = AST) 18 U/L <34 N SGPT/ALT (test code = ALT) 40 U/L 10-49 N ALKALINE PHOSPHATASE (test code = ALKP) 53.0 U/L 46-116 N CBC W/AUTO [id number] 04:56:00* Test Item Value Reference Range Interpretation Comme nts WHITE BLOOD CELL (test code = WBC) 11.3 x10 3/uL 4.8-10.8 H RED BLOOD CELL (test code = RBC) 3.15 x10 6/uL 4.70-6.10 L HEMOGLOBIN (test code = HGB) 8.8 g/dL 14.0-18.0 L HEMATOCRIT (test code = HCT) 24.8 % 42.0-52.0 L MEAN CELL VOLUME (test code = MCV) 78.7 fL 80.0-94.0 L MEAN CELL HGB (test code = MCH) 27.9 pg 27-31 N MEAN CELL HGB CONCENTRATION (test code = MCHC) 35.5 G/DL 33-36.5 N RED CELL DISTRIBUTION WIDTH (test code = RDW) 13.2 % 12.9-16.9 N PLATELET COUNT (test code = PLT) 181 x10 3/uL 150-440 N MEAN PLATELET VOLUME (test c ode = MPV) 10.7 fL 8.9-12.4 N NEUTROPHIL % (test code = NT%) 72.0 % 42.2-75.2 N LYMPHOCYTE % (test code = LY%) 13.4 % 20.5-51.1 L MONOCYTE % (test code = MO%) 11.3 % 1.7-9.3 H EOSINOPHIL % (test code = EO%) 2.5 % 0.0-7.0 N BASOPHIL % (test code = BA%) 0.2 % 0-2.5 N NEUTROPHIL # (test code = NT#) 8.11 x10 3/uL 1.80-7.70 H LYMPHOCYTE # (test code = LY#) 1.51 x10 3/uL 1.00-4.80 N MONOCYTE # (test code = MO#) 1.27 x10 3/uL 0.00-0.80 H EOSINOPHIL # (test code = EO#) 0.28 x10 3/uL 0.00-0.45 N BASOPHIL # (test code = BA#) 0.02 x10 3/uL 0.0-0.20 N [id number] 20:46:00* Test Item Value Reference Range Interpretation Comme nts GLUBED (test code = GLUBED) 197 MG/DL 70-105 H [id number] 16:38:00* Test Item Value Reference Range Interpretation Comme nts GLUBED (test code = GLUBED) 202 MG/DL 70-105 H BASIC METABOLIC [id number] 11:15:00* Test Item Value Reference Range Interpretation Comme nts SODIUM (test code = NA) 136 mmol/L 136-145 N POTASSIUM (test code = K) 4.2 mmol/L 3.5-5.1 N CHLORIDE (test code = CL) 101 mmol/l 98-107 N CARBON DIOXIDE (test code = CO2) 28 mmol/L 20-31 N GLUCOSE (test code = GLU) 335 mg/dL 74-106 H BLOOD UREA NITROGEN (test code = BUN) 20 mg/dL 9-23 N GLOMERULAR FILTRATION RATE (test code = GFR) >=60 max estimate mL/min >60 The Glomerular Filtration Rate is a calculated parameterbased on serum Creatinine, patient age and sex. GFR valuesless than 60 mL/min/1.73 square meters are indicative ofChronic Kidney Disease. Values less than 15 mL/min/1.73square meters indicate Kidney failure. The calculation forGFR is based on the CKD-EPI (2020) calculation. This formulais race indifferent and is the recommended formula for GFRby the National Kidney Foundation for Adults.The GFR will not calculate if the sex is unknown or if thepatient's age is <18 years. CREATININE (test code = CREAT) 0.70 mg/dL 0.70-1.30 N CALCIUM (test code = CA) 8.6 mg/dL 8.7-10.4 L COMPREHENSIVE METABOLIC [id number] 11:15:00* Test Item Value Reference Range Interpretation Comme nts TOTAL PROTEIN (test code = PROT) 6.0 g/dL 5.7-8.2 N ALBUMIN (test code = ALB) 3.9 g/dL 3.2-4.8 N BILIRUBIN TOTAL (test code = BILT) 0.8 mg/dL 0.3-1.2 N SGOT/AST (test code = AST) 23 U/L <34 N SGPT/ALT (test code = ALT) 26 U/L 10-49 N ALKALINE PHOSPHATASE (test c ode = ALKP) 61.0 U/L 46-116 N CBC W/AUTO [id number] 10:57:00* Test Item Value Reference Range Interpretation Comme nts WHITE BLOOD CELL (test code = WBC) 13.4 x10 3/uL 4.8-10.8 H RED BLOOD CELL (test code = RBC) 3.54 x10 6/uL 4.70-6.10 L HEMOGLOBIN (test code = HGB) 9.6 g/dL 14.0-18.0 L HEMATOCRIT (test code = HCT) 28.8 % 42.0-52.0 L MEAN CELL VOLUME (test code = MCV) 81.4 fL 80.0-94.0 N MEAN CELL HGB (test code = MCH) 27.1 pg 27-31 N MEAN CELL HGB CONCENTRATION (test code = MCHC) 33.3 G/DL 33-36.5 N RED CELL DISTRIBUTION WIDTH (test code = RDW) 13.2 % 12.9-16.9 N PLATELET COUNT (test code = PLT) 194 x10 3/uL 150-440 N MEAN PLATELET VOLUME (test code = MPV) 10.3 fL 8.9-12.4 N NEUTROPHIL % (test code = NT%) 80.2 % 42.2-75.2 H LYMPHOCYTE % (test code = LY%) 7.5 % 20.5-51.1 L MONOCYTE % (test code = MO%) 10.0 % 1.7-9.3 H EOSINOPHIL % (test code = EO%) 1.3 % 0.0-7.0 N BASOPHIL % (test code = BA%) 0.2 % 0-2.5 N NEUTROPHIL # (test code = NT#) 10.74 x10 3/uL 1.80-7.70 H LYMPHOCYTE # (test code = LY#) 1.00 x10 3/uL 1.00-4.80 N MONOCYTE # (test code = MO#) 1.34 x10 3/uL 0.00-0.80 H EOSINOPHIL # (test code = EO#) 0.17 x10 3/uL 0.00-0.45 N BASOPHIL # (test code = BA#) 0.03 x10 3/uL 0.0-0.20 N - XR CHEST 1 [id number] 09:11:00 [facility] : 1955 Sex: MPatient Name: LUIS GUZMÁN Unit No: [id number] EXAMS: CPT CODE: [id number] XR CHEST 1 V 32935 HISTORY: Status post CABG, follow-up Comparison to yesterday Location code: B2 FINDINGS: Frontal view ofthe chest demonstrates normal cardiomediastinal silhouette. The trachea is midline small left effusion with atelectasis. Right basilar atelectasis. No pneumothorax. The bones are intact. Median sternotomy wires. IMPRESSION: Small left effusion with atelectasis. Streaky right basilar atelectasis. Improved aeration when compared to prior at 0911 Reported and signed by: Evelio Dejesus M.D. CC: Reyna العلي; Rajesh Kilgore MD Technologist: MIAN ADAMS RT (R) Fluoro Time: DAP (Gy m2): Air Kerma (mGy): Trscr Dt/Tm: 05/06/2023 (0911) by:[email or web address] Printed Date/Time: 05/06/2023 (0914) Name: [facility] Phys:INNAGÉNESIS NegronveronicaReyna العلي [address] : 1955 Age: 67 Sex: [place] [id number] Loc: P.0420 A Exam Date: 05/06/2023 Status: ADM IN PH: FAX: PAGE 1 Signed ReportBLOOD GAS [id number] 18:34:00* Test Item Value Reference Range Interpretation Comme nts ARTERIAL BLOOD GAS PH (test code = PHA) 7.41 7.35-7.45 N ARTERIAL BLOOD GAS PCO2 (test code = PCO2A) 36.9 mmHg 35.0-45.0 N ARTERIAL BLOOD GAS PO2 (test code = PO2A) 62.8 mmHg 80.0-95.0 L BICARBONATE TOTAL HCO3 (test code = HCO3) 23.0 mmol/L 22.0-24.0 N BASE EXCESS (test code = FRANCESCA) -1.2 mmol/L See_Comment N [Automated message] The system which generated this result transmitted reference range: (+/-)2.0. The reference range was not used to interpret this result as normal/abnormal. ABG O2 SATURATION (test code = SATA) 92.3 % 95.0-100.0 L ARTERIAL FIO2 (test code = FIO2A) 21.0 % ABG VENT MODE (test code = MODEA) BIPAP ALLENS TEST (test code = ALLENS) NOT APPLICABLE SODIUM (POC) (test code = NA/ABG) 133 mmol/L 135-147 L POTASSIUM (POC) (test code = K/ABG) 4.33 mmol/L 3.6-5.2 N CHLORIDE (ARTERIAL) (test code = CL/ABG) 103 mmol/L 98-108 N GLUCOSE (test code = GLU/ABG) 170 mg/dL 70-104 H IONIZED CALCIUM (test code = CAIABG) 1.23 mmol/L 1.12-1.32 N POC LACTIC ACID (test code = POCLAC) 1.02 mmol/L 0.5-2.2 N TOTAL HGB (test code = THB) 11.2 g/dL 13.0-17.0 L OXYHEMOGLOBIN (test code = OOHGBT) 91.7 % 92.0-98.0 L CARBOXYHEMOGLOBIN (test code = HOHGBT) 0.4 % 0-5.0 N METHEMOGLOBIN (test code = METHGB) <0.8 % 0-1.5 N HHb (test code = HHB) 7.6 % TCO2 ARTERIAL (test code = TCO2A) 24.2 MMOL/L 24-30 N [id number] 17:35:00* Test Item Value Reference Range Interpretation Comme nts GLUBED (test code = GLUBED) 190 MG/DL 70-105 H [id number] 11:04:00* Test Item Value Reference Range Interpretation Comme nts GLUBED (test code = GLUBED) 316 MG/DL 70-105 HH - XR CHEST 1 [id number] 07:42:00 [facility] : 1955 Sex: MPatient Name: LUIS GUZMÁN Unit No: [id number] EXAMS: CPT CODE: [id number] XR CHEST 1 V 39478 Clinical Information: Postoperative Dictation Location: A 1 COMPARISON: 05/04/2023. FINDINGS: Portable frontal view of the chest taken at 0625 hours shows monitoring electrodes overlying the chest wall. Sternal wire sutures. Right central line. Chest tubes. Normal heart size. Central vascular interstitia l prominence. Minimal hazy bibasilar atelectasis or minimal infiltrate. No interval bone changes. IMPRESSION: Low lung volumes could emphasize the central vascular interstitial markings. at 0742 Reported and signed by: EMMA ABDI M.D. CC: No Primary Care Physician; Yonathan Laws MD; Rajesh Kilgore MD Technologist: ANGELES STACK (Erlinda) Fluoro Time: DAP (Gy m2): Air Kerma (mGy): Trscr Dt/Tm: 05/05/2023 (6999) by:[email or web address] Printed Date/Time: 05/05/2023 (2361) [facility]: Yonathan Crandall MD [address] : 1955 Age: 67 Sex: [place] [id number] [id number] Loc: P.0308 1 Exam Date: 05/05/2023 Status: ADM IN PH: FAX: PAGE 1 Signed Report [id number] 06:20:00* Test Item Value Reference Range Interpretation Comme nts GLUBED (test code = GLUBED) 110 MG/DL 70-105 H VENOUS BLOOD [id number] 05:57:00* Test Item Value Reference Range Interpretation Comme nts VENOUS BLOOD GAS PH (test code = PHV) 7.33 7.35-7.45 L VENOUS BLOOD GAS PCO2 (test code = PCO2V) 46.3 mmHg See_Comment [Automated messa ge] The system which generated this result transmitted reference range: 46. The reference range was not used to interpret this result as normal/abnormal. VENOUS BLOOD GAS PO2 (test code = PO2V) 33.4 mmHg See_Comment [Automated nPickera ge] The system which generated this result transmitted reference range: 40. The reference range was not used to interpret this result as normal/abnormal. VBG HCO3 (test code = HCO3V) 24 meq/L VBG BASE EXCESS (test code = CRISTEL) -2.3 MMOL/L VENOUS BLOOD GAS O2 SAT (test code = O2SATV) 61 % See_Comment [Automated messa ge] The system which generated this result transmitted reference range: 75. The reference range was not used to interpret this result as normal/abnormal. VENOUS BLOOD GAS TYPE (test code = TYPEV) Venous VENOUS BLOOD GAS FIO2 (test code = FIO2V) 21.0 % VBG VENT MODE (test code = MODEV) Room Air BASIC METABOLIC [id number] 04:04:00* Test Item Value Reference Range Interpretation Comme nts SODIUM (test code = NA) 139 mmol/L 136-145 N POTASSIUM (test code = K) 4.4 mmol/L 3.5-5.1 N CHLORIDE (test code = CL) 107 mmol/l 98-107 N CARBON DIOXIDE (test code = CO2) 27 mmol/L 20-31 N GLUCOSE (test code = GLU) 86 mg/dL 74-106 N BLOOD UREA NITROGEN (test code = BUN) 25 mg/dL 9-23 H GLOMERULAR FILTRATION RATE (test code = GFR) >=60 max estimate mL/min >60 The Glomerular Filtration Rate is a calculated parameterbased on serum Creatinine, patient age and sex. GFR valuesless than 60 mL/min/1.73 square meters are indicative ofChronic Kidney Disease. Values less than 15 mL/min/1.73square meters indicate Kidney failure. The calculation forGFR is based on the CKD-EPI (2020) calculation. This formulais race indifferent and is the recommended formula for GFRby the National Kidney Foundation for Adults.The GFR will not calculate if the sex is unknown or if thepatient's age is <18 years. CREATININE (test code = CREAT) 0.70 mg/dL 0.70-1.30 N CALCIUM (test code = CA) 7.8 mg/dL 8.7-10.4 L [id number] 04:04:00* Test Item Value Reference Range Interpretation Comme nts PHOSPHOROUS (test code = PHOS) 3.5 mg/dL 2.4-5.1 N [id number] 04:04:00* Test Item Value Reference Range Interpretation Comme nts MAGNESIUM (test code = MAG) 2.1 mg/dL 1.6-2.6 N CBC W/AUTO [id number] 03:45:00* Test Item Value Reference Range Interpretation Comme nts WHITE BLOOD CELL (test code = WBC) 16.0 x10 3/uL 4.8-10.8 H RED BLOOD CELL (test code = RBC) 2.95 x10 6/uL 4.70-6.10 L HEMOGLOBIN (test code = HGB) 8.2 g/dL 14.0-18.0 L HEMATOCRIT (test code = HCT) 24.2 % 42.0-52.0 L MEAN CELL VOLUME (test code = MCV) 82.0 fL 80.0-94.0 N MEAN CELL HGB (test code = MCH) 27.8 pg 27-31 N MEAN CELL HGB CONCENTRATION (test code = MCHC) 33.9 G/DL 33-36.5 N RED CELL DISTRIBUTION WIDTH (test code = RDW) 13.5 % 12.9-16.9 N PLATELET COUNT (test code = PLT) 150 x10 3/uL 150-440 N MEAN PLATELET VOLUME (test code = MPV) 10.1 fL 8.9-12.4 N NEUTROPHIL % (test code = NT%) 74.4 % 42.2-75.2 N LYMPHOCYTE % (test code = LY%) 9.6 % 20.5-51.1 L MONOCYTE % (test code = MO%) 14.6 % 1.7-9.3 H EOSINOPHIL % (test code = EO%) 0.3 % 0.0-7.0 N BASOPHIL % (test code = BA%) 0.2 % 0-2.5 N NEUTROPHIL # (test code = NT#) 11.90 x10 3/uL 1.80-7.70 H LYMPHOCYTE # (test code = LY#) 1.54 x10 3/uL 1.00-4.80 N MONOCYTE # (test code = MO#) 2.34 x10 3/uL 0.00-0.80 H EOSINOPHIL # (test code = EO#) 0.05 x10 3/uL 0.00-0.45 N BASOPHIL # (test code = BA#) 0.04 x10 3/uL 0.0-0.20 N [id number] 20:42:00* Test Item Value Reference Range Interpretation Comme nts GLUBED (test code = GLUBED) 198 MG/DL 70-105 H [id number] 17:28:00* Test Item Value Reference Range Interpretation Comme nts GLUBED (test code = GLUBED) 154 MG/DL 70-105 H BASIC METABOLIC [id number] 16:57:00* Test Item Value Reference Range Interpretation Comme nts SODIUM (test code = NA) 137 mmol/L 136-145 N POTASSIUM (test code = K) 4.4 mmol/L 3.5-5.1 N CHLORIDE (test code = CL) 107 mmol/l 98-107 N CARBON DIOXIDE (test code = CO2) 24 mmol/L 20-31 N GLUCOSE (test code = GLU) 167 mg/dL 74-106 H BLOOD UREA NITROGEN (test code = BUN) 18 mg/dL 9-23 N GLOMERULAR FILTRATION RATE (test code = GFR) >=60 max estimate mL/min >60 The Glomerular Filtration Rate is a calculated parameterbased on serum Creatinine, patient age and sex. GFR valuesless than 60 mL/min/1.73 square meters are indicative ofChronic Kidney Disease. Values less than 15 mL/min/1.73square meters indicate Kidney failure. The calculation forGFR is based on the CKD-EPI (2020) calculation. This formulais race indifferent and is the recommended formula for GFRby the National Kidney Foundation for Adults.The GFR will not calculate if the sex is unknown or if thepatient's age is <18 years. CREATININE (test code = CREAT) 0.60 mg/dL 0.70-1.30 L CALCIUM (test code = CA) 7.9 mg/dL 8.7-10.4 L [id number] 16:57:00* Test Item Value Reference Range Interpretation Comme nts PHOSPHOROUS (test code = PHOS) 3.0 mg/dL 2.4-5.1 N [id number] 16:57:00* Test Item Value Reference Range Interpretation Comme nts MAGNESIUM (test code = MAG) 2.2 mg/dL 1.6-2.6 N [id number] 11:45:00* Test Item Value Reference Range Interpretation Comme nts GLUBED (test code = GLUBED) 152 MG/DL 70-105 H [id number] 08:11:00* Test Item Value Reference Range Interpretation Comme nts PHOSPHOROUS (test code = PHOS) 3.7 mg/dL 2.4-5.1 N Comment: BLOOD IN LAB ADD ON TEST? Yes- XR CHEST 1 [id number] 07:40:00 [facility] : 1955 Sex: MPatient Name: LUIS GUZMÁN Unit No: [id number] EXAMS: CPT CODE: [id number] XR CHEST 1 V 01032 CHEST, SINGLE VIEW LOCATION: A1 HISTORY: Postoperative evaluation. A single view of the chest at 7:15 AMwas compared to a prior exam from May 03, 2023. FINDINGS: The endotracheal tube and nasogastric tube have been removed. Remaining lines and tubes are stable. Bibasilar atelectasis is again notedalong with mild cardiac and central pulmonary vascular prominence. No other new findings are seen. IMPRESSION: Removal of the endotracheal tube and nasogastric tube. No other significant change. at 0740 Reported and signed by: Cody Howard Jr, MD CC: Radha Tong; No Primary Care Physician; Rajesh Kilgore MD Technologist: Nirav Espinal Time: DAP (Gy m2): Air Kerma (mGy): Trscr Dt/Tm: 05/04/2023 (0740) by:Marla Printed Date/Time: 05/04/2023 (0743) Name: [facility] Phys: Radha Saeed APRN [id number] : 1955 Age: 67 Sex: [place] [id number] Loc: P.[id number] 1 Exam Date: 05/04/2023 Status: ADM IN PH: FAX: PAGE 1 Signed Report [id number] 07:39:00* Test Item Value Reference Range Interpretation Comme nts GLUBED (test code = GLUBED) 153 MG/DL 70-105 H BASIC METABOLIC [id number] 04:00:00* Test Item Value Reference Range Interpretation Comme nts SODIUM (test code = NA) 138 mmol/L 136-145 N POTASSIUM (test code = K) 4.2 mmol/L 3.5-5.1 N CHLORIDE (test code = CL) 108 mmol/l 98-107 H CARBON DIOXIDE (test code = CO2) 21 mmol/L 20-31 N GLUCOSE (test code = GLU) 109 mg/dL 74-106 H BLOOD UREA NITROGEN (test code = BUN) 14 mg/dL 9-23 N GLOMERULAR FILTRATION RATE (test code = GFR) >=60 max estimate mL/min >60 The Glomerular Filtration Rate is a calculated parameterbased on serum Creatinine, patient age and sex. GFR valuesless than 60 mL/min/1.73 square meters are indicative ofChronic Kidney Disease. Values less than 15 mL/min/1.73square meters indicate Kidney failure. The calculation forGFR is based on the CKD-EPI (2020) calculation. This formulais race indifferent and is the recommended formula for GFRby the National Kidney Foundation for Adults.The GFR will not calculate if the sex is unknown or if thepatient's age is <18 years. CREATININE (test code = CREAT) 0.50 mg/dL 0.70-1.30 L CALCIUM (test code = CA) 7.8 mg/dL 8.7-10.4 L LIVER FUNCTION [id number] 04:00:00* Test Item Value Reference Range Interpretation Comme nts TOTAL PROTEIN (test code = PROT) 4.8 g/dL 5.7-8.2 L ALBUMIN (test code = ALB) 3.2 g/dL 3.2-4.8 N BILIRUBIN TOTAL (test code = BILT) 0.9 mg/dL 0.3-1.2 N BILIRUBIN DIRECT (test code = BILD) 0.4 mg/dL <0.3 H SGOT/AST (test code = AST) 69 U/L <34 H SGPT/ALT (test code = ALT) 41 U/L 10-49 N ALKALINE PHOSPHATASE (test c ode = ALKP) 58.0 U/L 46-116 N [id number] 04:00:00* Test Item Value Reference Range Interpretation Comme nts MAGNESIUM (test code = MAG) 2.6 mg/dL 1.6-2.6 N CBC W/AUTO [id number] 03:41:00* Test Item Value Reference Range Interpretation Comme nts WHITE BLOOD CELL (test code = WBC) 22.6 x10 3/uL 4.8-10.8 H RED BLOOD CELL (test code = RBC) 3.86 x10 6/uL 4.70-6.10 L HEMOGLOBIN (test code = HGB) 10.5 g/dL 14.0-18.0 L HEMATOCRIT (test code = HCT) 30.8 % 42.0-52.0 L MEAN CELL VOLUME (test code = MCV) 79.8 fL 80.0-94.0 L MEAN CELL HGB (test code = MCH) 27.2 pg 27-31 N MEAN CELL HGB CONCENTRATION (test code = MCHC) 34.1 G/DL 33-36.5 N RED CELL DISTRIBUTION WIDTH (test code = RDW) 13.3 % 12.9-16.9 N PLATELET COUNT (test code = PLT) 239 x10 3/uL 150-440 N MEAN PLATELET VOLUME (test code = MPV) 9.5 fL 8.9-12.4 N NEUTROPHIL % (test code = NT%) 85.6 % 42.2-75.2 H LYMPHOCYTE % (test code = LY%) 5.2 % 20.5-51.1 L MONOCYTE % (test code = MO%) 8.1 % 1.7-9.3 N EOSINOPHIL % (test code = EO%) 0.0 % 0.0-7.0 N BASOPHIL % (test code = BA%) 0.2 % 0-2.5 N NEUTROPHIL # (test code = NT#) 19.31 x10 3/uL 1.80-7.70 H LYMPHOCYTE # (test code = LY#) 1.17 x10 3/uL 1.00-4.80 N MONOCYTE # (test code = MO#) 1.84 x10 3/uL 0.00-0.80 H EOSINOPHIL # (test code = EO#) 0.01 x10 3/uL 0.00-0.45 N BASOPHIL # (test code = BA#) 0.04 x10 3/uL 0.0-0.20 N [id number] 00:36:00* Test Item Value Reference Range Interpretation Comme nts GLUBED (test code = GLUBED) 89 MG/DL 70-105 N COMPREHENSIVE METABOLIC [id number] 22:38:00* Test Item Value Reference Range Interpretation Comme nts SODIUM (test code = NA) 139 mmol/L 136-145 N POTASSIUM (test code = K) 3.9 mmol/L 3.5-5.1 N CHLORIDE (test code = CL) 109 mmol/l 98-107 H CARBON DIOXIDE (test code = CO2) 23 mmol/L 20-31 N GLUCOSE (test code = GLU) 97 mg/dL 74-106 N BLOOD UREA NITROGEN (test code = BUN) 10 mg/dL 9-23 N GLOMERULAR FILTRATION RATE (test code = GFR) >=60 max estimate mL/min >60 The Glomerular Filtration Rate is a calculated parameterbased on serum Creatinine, patient age and sex. GFR valuesless than 60 mL/min/1.73 square meters are indicative ofChronic Kidney Disease. Values less than 15 mL/min/1.73square meters indicate Kidney failure. The calculation forGFR is based on the CKD-EPI (2020) calculation. This formulais race indifferent and is the recommended formula for GFRby the National Kidney Foundation for Adults.The GFR will not calculate if the sex is unknown or if thepatient's age is <18 years. CREATININE (test code = CREAT) 0.50 mg/dL 0.70-1.30 L TOTAL PROTEIN (test code = PROT) 5.2 g/dL 5.7-8.2 L ALBUMIN (test code = ALB) 3.3 g/dL 3.2-4.8 N CALCIUM (test code = CA) 7.8 mg/dL 8.7-10.4 L BILIRUBIN TOTAL (test code = BILT) 1.0 mg/dL 0.3-1.2 N SGOT/AST (test code = AST) 71 U/L <34 H SGPT/ALT (test code = ALT) 43 U/L 10-49 N ALKALINE PHOSPHATASE (test code = ALKP) 60.0 U/L 46-116 N [id number] 22:38:00* Test Item Value Reference Range Interpretation Comme nts PHOSPHOROUS (test code = PHOS) 3.1 mg/dL 2.4-5.1 N [id number] 22:38:00* Test Item Value Reference Range Interpretation Comme nts MAGNESIUM (test code = MAG) 1.9 mg/dL 1.6-2.6 N CBC W/AUTO [id number] 22:16:00* Test Item Value Reference Range Interpretation Comme nts WHITE BLOOD CELL (test code = WBC) 19.1 x10 3/uL 4.8-10.8 H RED BLOOD CELL (test code = RBC) 3.82 x10 6/uL 4.70-6.10 L HEMOGLOBIN (test code = HGB) 10.4 g/dL 14.0-18.0 L HEMATOCRIT (test code = HCT) 30.2 % 42.0-52.0 L MEAN CELL VOLUME (test code = MCV) 79.1 fL 80.0-94.0 L MEAN CELL HGB (test code = MCH) 27.2 pg 27-31 N MEAN CELL HGB CONCENTRATION (test code = MCHC) 34.4 G/DL 33-36.5 N RED CELL DISTRIBUTION WIDTH (test code = RDW) 13.1 % 12.9-16.9 N PLATELET COUNT (test code = PLT) 232 x10 3/uL 150-440 N MEAN PLATELET VOLUME (test code = MPV) 9.3 fL 8.9-12.4 N NEUTROPHIL % (test code = NT%) 86.1 % 42.2-75.2 H LYMPHOCYTE % (test code = LY%) 4.5 % 20.5-51.1 L MONOCYTE % (test code = MO%) 7.9 % 1.7-9.3 N EOSINOPHIL % (test code = EO%) 0.1 % 0.0-7.0 N BASOPHIL % (test code = BA%) 0.2 % 0-2.5 N NEUTROPHIL # (test code = NT#) 16.47 x10 3/uL 1.80-7.70 H LYMPHOCYTE # (test code = LY#) 0.86 x10 3/uL 1.00-4.80 L MONOCYTE # (test code = MO#) 1.51 x10 3/uL 0.00-0.80 H EOSINOPHIL # (test code = EO#) 0.01 x10 3/uL 0.00-0.45 N BASOPHIL # (test code = BA#) 0.03 x10 3/uL 0.0-0.20 N [id number] 21:02:00* Test Item Value Reference Range Interpretation Comme nts GLUBED (test code = GLUBED) 103 MG/DL 70-105 N BLOOD GAS [id number] 19:00:00* Test Item Value Reference Range Interpretation Comme nts ARTERIAL BLOOD GAS PH (test code = PHA) 7.40 7.35-7.45 N ARTERIAL BLOOD GAS PCO2 (test code = PCO2A) 35.4 mmHg 35.0-45.0 N ARTERIAL BLOOD GAS PO2 (test code = PO2A) 120.8 mmHg 80.0-95.0 H BICARBONATE TOTAL HCO3 (test code = HCO3) 21.3 mmol/L 22.0-24.0 L BASE EXCESS (test code = FRANCESCA) -3.0 mmol/L See_Comment L [Automated message] The system which generated this result transmitted reference range: (+/-)2.0. The reference range was not used to interpret this result as normal/abnormal. ABG O2 SATURATION (test code = SATA) 98.2 % 95.0-100.0 N ARTERIAL FIO2 (test code = FIO2A) 32.0 % ABG VENT MODE (test code = MODEA) NASAL CANNULA ALLENS TEST (test code = ALLENS) NOT APPLICABLE SODIUM (POC) (test code = NA/ABG) 134 mmol/L 135-147 L POTASSIUM (POC) (test code = K/ABG) 3.98 mmol/L 3.6-5.2 N CHLORIDE (ARTERIAL) (test code = CL/ABG) 103 mmol/L 98-108 N GLUCOSE (test code = GLU/ABG) 149 mg/dL 70-104 H IONIZED CALCIUM (test code = CAIABG) 1.19 mmol/L 1.12-1.32 N POC LACTIC ACID (test code = POCLAC) 0.79 mmol/L 0.5-2.2 N TOTAL HGB (test code = THB) 11.5 g/dL 13.0-17.0 L OXYHEMOGLOBIN (test code = OOHGBT) 97.8 % 92.0-98.0 N CARBOXYHEMOGLOBIN (test code = HOHGBT) 0.4 % 0-5.0 N METHEMOGLOBIN (test code = METHGB) <0.8 % 0-1.5 N HHb (test code = HHB) 1.8 % TCO2 ARTERIAL (test code = TCO2A) 22.4 MMOL/L 24-30 L BLOOD GAS [id number] 18:02:00* Test Item Value Reference Range Interpretation Comme nts ARTERIAL BLOOD GAS PH (test code = PHA) 7.42 7.35-7.45 N ARTERIAL BLOOD GAS PCO2 (test code = PCO2A) 35.1 mmHg 35.0-45.0 N ARTERIAL BLOOD GAS PO2 (test code = PO2A) 158.9 mmHg 80.0-95.0 H BICARBONATE TOTAL HCO3 (test code = HCO3) 22.1 mmol/L 22.0-24.0 N BASE EXCESS (test code = FRANCESCA) -1.9 mmol/L See_Comment N [Automated message] The system which generated this result transmitted reference range: (+/-)2.0. The reference range was not used to interpret this result as normal/abnormal. ABG O2 SATURATION (test code = SATA) 98.7 % 95.0-100.0 N ARTERIAL FIO2 (test code = FIO2A) 40.0 % ABG VENT MODE (test code = MODEA) Ventilator ALLENS TEST (test code = ALLENS) NOT APPLICABLE SODIUM (POC) (test code = NA/ABG) 133 mmol/L 135-147 L POTASSIUM (POC) (test code = K/ABG) 4.06 mmol/L 3.6-5.2 N CHLORIDE (ARTERIAL) (test code = CL/ABG) 103 mmol/L 98-108 N GLUCOSE (test code = GLU/ABG) 178 mg/dL 70-104 H IONIZED CALCIUM (test code = CAIABG) 1.21 mmol/L 1.12-1.32 N POC LACTIC ACID (test code = POCLAC) 1.00 mmol/L 0.5-2.2 N TOTAL HGB (test code = THB) 11.4 g/dL 13.0-17.0 L OXYHEMOGLOBIN (test code = OOHGBT) 98.4 % 92.0-98.0 H CARBOXYHEMOGLOBIN (test code = HOHGBT) 0.0 % 0-5.0 N METHEMOGLOBIN (test code = METHGB) <0.8 % 0-1.5 N HHb (test code = HHB) 1.3 % TCO2 ARTERIAL (test code = TCO2A) 23.2 MMOL/L 24-30 L BASIC METABOLIC [id number] 17:40:00* Test Item Value Reference Range Interpretation Comme nts SODIUM (test code = NA) 137 mmol/L 136-145 N POTASSIUM (test code = K) 4.2 mmol/L 3.5-5.1 N CHLORIDE (test code = CL) 108 mmol/l 98-107 H CARBON DIOXIDE (test code = CO2) 24 mmol/L 20-31 N GLUCOSE (test code = GLU) 179 mg/dL 74-106 H BLOOD UREA NITROGEN (test code = BUN) 14 mg/dL 9-23 N GLOMERULAR FILTRATION RATE (test code = GFR) >=60 max estimate mL/min >60 The Glomerular Filtration Rate is a calculated parameterbased on serum Creatinine, patient age and sex. GFR valuesless than 60 mL/min/1.73 square meters are indicative ofChronic Kidney Disease. Values less than 15 mL/min/1.73square meters indicate Kidney failure. The calculation forGFR is based on the CKD-EPI (2020) calculation. This formulais race indifferent and is the recommended formula for GFRby the National Kidney Foundation for Adults.The GFR will not calculate if the sex is unknown or if thepatient's age is <18 years. CREATININE (test code = CREAT) 0.50 mg/dL 0.70-1.30 L CALCIUM (test code = CA) 8.0 mg/dL 8.7-10.4 L [id number] 17:40:00* Test Item Value Reference Range Interpretation Comme nts PHOSPHOROUS (test code = PHOS) 2.3 mg/dL 2.4-5.1 L [id number] 17:40:00* Test Item Value Reference Range Interpretation Comme nts MAGNESIUM (test code = MAG) 1.9 mg/dL 1.6-2.6 N BLOOD GAS W/[id number] 16:25:00* Test Item Value Reference Range Interpretation Comme nts ARTERIAL BLOOD GAS PH (test code = PHA) 7.46 7.35-7.45 H ARTERIAL BLOOD GAS PCO2 (test code = PCO2A) 27.9 mmHg 35.0-45.0 L ARTERIAL BLOOD GAS PO2 (test code = PO2A) 148.3 mmHg 80.0-95.0 H BICARBONATE TOTAL HCO3 (test code = HCO3) 19.6 mmol/L 22.0-24.0 L BASE EXCESS (test code = FRANCESCA) -3.1 mmol/L See_Comment L [Automated message] The system which generated this result transmitted reference range: (+/-)2.0. The reference range was not used to interpret this result as normal/abnormal. ABG O2 SATURATION (test code = SATA) 98.6 % 95.0-100.0 N ARTERIAL FIO2 (test code = FIO2A) 40.0 % ABG VENT MODE (test code = MODEA) Ventilator ABG TEMPERATURE (test code = TEMPA) 36.1 C ALLENS TEST (test code = ALLENS) NOT APPLICABLE SODIUM (POC) (test code = NA/ABG) 133 mmol/L 135-147 L POTASSIUM (POC) (test code = K/ABG) 3.99 mmol/L 3.6-5.2 N CHLORIDE (ARTERIAL) (test code = CL/ABG) 104 mmol/L 98-108 N GLUCOSE (test code = GLU/ABG) 189 mg/dL 70-104 H IONIZED CALCIUM (test code = CAIABG) 1.18 mmol/L 1.12-1.32 N POC LACTIC ACID (test code = POCLAC) 0.95 mmol/L 0.5-2.2 N TOTAL HGB (test code = THB) 11.1 g/dL 13.0-17.0 L OXYHEMOGLOBIN (test code = OOHGBT) 98.0 % 92.0-98.0 N CARBOXYHEMOGLOBIN (test code = HOHGBT) 0.3 % 0-5.0 N METHEMOGLOBIN (test code = METHGB) <0.8 % 0-1.5 N HHb (test code = HHB) 1.4 % TCO2 ARTERIAL (test code = TCO2A) 20.4 MMOL/L 24-30 L BLOOD GAS W/[id number] 15:24:00* Test Item Value Reference Range Interpretation Comme nts ARTERIAL BLOOD GAS PH (test code = PHA) 7.44 7.35-7.45 N ARTERIAL BLOOD GAS PCO2 (test code = PCO2A) 29.6 mmHg 35.0-45.0 L ARTERIAL BLOOD GAS PO2 (test code = PO2A) 125.9 mmHg 80.0-95.0 H BICARBONATE TOTAL HCO3 (test code = HCO3) 19.7 mmol/L 22.0-24.0 L BASE EXCESS (test code = FRANCESCA) -3.4 mmol/L See_Comment L [Automated message] The system which generated this result transmitted reference range: (+/-)2.0. The reference range was not used to interpret this result as normal/abnormal. ABG O2 SATURATION (test code = SATA) 98.2 % 95.0-100.0 N ARTERIAL FIO2 (test code = FIO2A) 60.0 % ABG VENT MODE (test code = MODEA) Ventilator ALLENS TEST (test code = ALLENS) NOT APPLICABLE SODIUM (POC) (test code = NA/ABG) 131 mmol/L 135-147 L POTASSIUM (POC) (test code = K/ABG) 4.39 mmol/L 3.6-5.2 N CHLORIDE (ARTERIAL) (test code = CL/ABG) 103 mmol/L 98-108 N GLUCOSE (test code = GLU/ABG) 210 mg/dL 70-104 H IONIZED CALCIUM (test code = CAIABG) 1.28 mmol/L 1.12-1.32 N POC LACTIC ACID (test code = POCLAC) 0.92 mmol/L 0.5-2.2 N TOTAL HGB (test code = THB) 11.4 g/dL 13.0-17.0 L OXYHEMOGLOBIN (test code = OOHGBT) 97.6 % 92.0-98.0 N CARBOXYHEMOGLOBIN (test code = HOHGBT) 0.3 % 0-5.0 N METHEMOGLOBIN (test code = METHGB) <0.8 % 0-1.5 N HHb (test code = HHB) 1.8 % TCO2 ARTERIAL (test code = TCO2A) 20.7 MMOL/L 24-30 L BLOOD GAS [id number] 14:24:00* Test Item Value Reference Range Interpretation Comme nts ARTERIAL BLOOD GAS PH (test code = PHA) 7.43 7.35-7.45 N ARTERIAL BLOOD GAS PCO2 (test code = PCO2A) 33.9 mmHg 35.0-45.0 L ARTERIAL BLOOD GAS PO2 (test code = PO2A) 101.2 mmHg 80.0-95.0 H BICARBONATE TOTAL HCO3 (test code = HCO3) 22.1 mmol/L 22.0-24.0 N BASE EXCESS (test code = FRANCESCA) -1.6 mmol/L See_Comment N [Automated message] The system which generated this result transmitted reference range: (+/-)2.0. The reference range was not used to interpret this result as normal/abnormal. ABG O2 SATURATION (test code = SATA) 97.3 % 95.0-100.0 N ARTERIAL FIO2 (test code = FIO2A) 60.0 % ABG VENT MODE (test code = MODEA) Ventilator ALLENS TEST (test code = ALLENS) NOT APPLICABLE SODIUM (POC) (test code = NA/ABG) 133 mmol/L 135-147 L POTASSIUM (POC) (test code = K/ABG) 4.47 mmol/L 3.6-5.2 N CHLORIDE (ARTERIAL) (test code = CL/ABG) 105 mmol/L 98-108 N GLUCOSE (test code = GLU/ABG) 193 mg/dL 70-104 H IONIZED CALCIUM (test code = CAIABG) 1.17 mmol/L 1.12-1.32 N POC LACTIC ACID (test code = POCLAC) 0.92 mmol/L 0.5-2.2 N TOTAL HGB (test code = THB) 11.0 g/dL 13.0-17.0 L OXYHEMOGLOBIN (test code = OOHGBT) 96.9 % 92.0-98.0 N CARBOXYHEMOGLOBIN (test code = HOHGBT) 0.1 % 0-5.0 N METHEMOGLOBIN (test code = METHGB) <0.8 % 0-1.5 N HHb (test code = HHB) 2.7 % TCO2 ARTERIAL (test code = TCO2A) 23.2 MMOL/L 24-30 L BLOOD GAS W/[id number] 14:23:00* Test Item Value Reference Range Interpretation Comme nts ARTERIAL BLOOD GAS PH (test code = PHA) 7.44 7.35-7.45 N ARTERIAL BLOOD GAS PCO2 (test code = PCO2A) 32.0 mmHg 35.0-45.0 L ARTERIAL BLOOD GAS PO2 (test code = PO2A) 79.7 mmHg 80.0-95.0 L BICARBONATE TOTAL HCO3 (test code = HCO3) 21.4 mmol/L 22.0-24.0 L BASE EXCESS (test code = FRANCESCA) -1.9 mmol/L See_Comment N [Automated message] The system which generated this result transmitted reference range: (+/-)2.0. The reference range was not used to interpret this result as normal/abnormal. ABG O2 SATURATION (test code = SATA) 95.4 % 95.0-100.0 N ARTERIAL FIO2 (test code = FIO2A) 60.0 % ABG VENT MODE (test code = MODEA) Ventilator ALLENS TEST (test code = ALLENS) NOT APPLICABLE SODIUM (POC) (test code = NA/ABG) 132 mmol/L 135-147 L POTASSIUM (POC) (test code = K/ABG) 4.41 mmol/L 3.6-5.2 N CHLORIDE (ARTERIAL) (test code = CL/ABG) 104 mmol/L 98-108 N GLUCOSE (test code = GLU/ABG) 205 mg/dL 70-104 H IONIZED CALCIUM (test code = CAIABG) 1.17 mmol/L 1.12-1.32 N POC LACTIC ACID (test code = POCLAC) 0.96 mmol/L 0.5-2.2 N TOTAL HGB (test code = THB) 11.7 g/dL 13.0-17.0 L OXYHEMOGLOBIN (test code = OOHGBT) 94.9 % 92.0-98.0 N CARBOXYHEMOGLOBIN (test code = HOHGBT) 0.2 % 0-5.0 N METHEMOGLOBIN (test code = METHGB) <0.8 % 0-1.5 N HHb (test code = HHB) 4.6 % TCO2 ARTERIAL (test code = TCO2A) 22.4 MMOL/L 24-30 L BASIC METABOLIC [id number] 13:52:00* Test Item Value Reference Range Interpretation Comme nts SODIUM (test code = NA) 139 mmol/L 136-145 N POTASSIUM (test code = K) 4.6 mmol/L 3.5-5.1 N CHLORIDE (test code = CL) 109 mmol/l 98-107 H CARBON DIOXIDE (test code = CO2) 24 mmol/L 20-31 N GLUCOSE (test code = GLU) 195 mg/dL 74-106 H BLOOD UREA NITROGEN (test code = BUN) 13 mg/dL 9-23 N GLOMERULAR FILTRATION RATE (test code = GFR) >=60 max estimate mL/min >60 The Glomerular Filtration Rate is a calculated parameterbased on serum Creatinine, patient age and sex. GFR valuesless than 60 mL/min/1.73 square meters are indicative ofChronic Kidney Disease. Values less than 15 mL/min/1.73square meters indicate Kidney failure. The calculation forGFR is based on the CKD-EPI (2020) calculation. This formulais race indifferent and is the recommended formula for GFRby the National Kidney Foundation for Adults.The GFR will not calculate if the sex is unknown or if thepatient's age is <18 years. CREATININE (test code = CREAT) 0.50 mg/dL 0.70-1.30 L CALCIUM (test code = CA) 7.4 mg/dL 8.7-10.4 L [id number] 13:52:00* Test Item Value Reference Range Interpretation Comme nts PHOSPHOROUS (test code = PHOS) 2.1 mg/dL 2.4-5.1 L [id number] 13:52:00* Test Item Value Reference Range Interpretation Comme nts MAGNESIUM (test code = MAG) 1.8 mg/dL 1.6-2.6 N - XR CHEST 1 [id number] 13:41:00 [facility] : 1955 Sex: MPatient Name: LUIS GUZMÁN Unit No: [id number] EXAMS: CPT CODE: [id number] XR CHEST 1 V [id number] CHEST, SINGLE VIEW LOCATION: A1 HISTORY: Postoperative evaluation. A single view of the chest was obtained at 1:12 PM. No prior exams are available for comparison. FINDINGS: Postoperative changes of median sternotomy are noted. Mild bibasilar atelectasis and small effusions are slightly worse on the right. Upper lungs are clear, without pneumothorax. Chest drains are in place. Endotracheal tube tip isin good position at the level of the clavicles. A Dix-Mk catheter tip is in the distal main pulmonary artery. Nasogastric tube is in the stomach. IMPRESSION: Stable postoperative changes with lines and tubes in place. at 1341 Reported and signed by: Cody Howard Jr, MD CC: Radha Tong; No Primary Care Physician; Rajesh Kilgore MD Technologist: ALEX BEARD RT(R) Fluoro Time: DAP (Gy m2): Air Kerma (mGy): TrscrDt/Tm: 05/03/2023 (1341) by:Marla Printed Date/Time: 05/03/2023 (1345) Name: LUIS GUZMÁN [facility] Phys: Radha Saeed APRN [address] : 1955 Age: 67 Sex: [place] [id number] [id number] Loc: P.0308 1 Exam Date: 05/03/2023 Status: ADM IN PH: FAX: PAGE 1 Signed ReportPROTHROMBIN [id number] 13:24:00 * Test Item Value Reference Range Interpretation Comme nts PROTHROMBIN TIME PATIENT (test code = PTP) 15.7 SECONDS 10.3-12.9 H INTERNATIONAL NORMAL RATIO (test code = INR) 1.42 0.9-1.11 H INR goals are individualized based on patient specificfactors. The following are only general guidelines: Indications: INR Goal:1. Treatment of venous thromboembolism and 2.0 - 3.0 systemic anticoagulation in a variety of conditions, including atrial fibrillation and mechanical heart valves 2. Mechanical mitral and tricuspid valves, 2.5 - 3.5 systemic anticoagulation for high-risk conditions THROMBOPLASTIN TIME [id number] 13:24:00* Test Item Value Reference Range Interpretation Comme nts THROMBOPLASTIN TIME PARTIAL (test code = PTT) 30.8 secs 23.8-34.8 INTERPRETATIVE D LAKE: Therapeutic range: Unfractionated Heparin: 60-90 seconds Argatroban: 60-90 seconds LACTIC [id number] 13:23:00* Test Item Value Reference Range Interpretation Comme nts LACTIC ACID (test code = LACT) 0.70 mmol/L 0.5-2.0 N Spec Comments: ARTERIAL LACTIC ACIDComments to Phleb: ARTERIAL LACTIC ACIDCBC W/AUTO [id number] 13:12:00* Test Item Value Reference Range Interpretation Comme nts WHITE BLOOD CELL (test code = WBC) 21.3 x10 3/uL 4.8-10.8 H RED BLOOD CELL (test code = RBC) 3.74 x10 6/uL 4.70-6.10 L HEMOGLOBIN (test code = HGB) 10.2 g/dL 14.0-18.0 L HEMATOCRIT (test code = HCT) 29.4 % 42.0-52.0 L MEAN CELL VOLUME (test code = MCV) 78.6 fL 80.0-94.0 L MEAN CELL HGB (test code = MCH) 27.3 pg 27-31 N MEAN CELL HGB CONCENTRATION (test code = MCHC) 34.7 G/DL 33-36.5 N RED CELL DISTRIBUTION WIDTH (test code = RDW) 12.9 % 12.9-16.9 N PLATELET COUNT (test code = PLT) 191 x10 3/uL 150-440 N MEAN PLATELET VOLUME (test code = MPV) 9.8 fL 8.9-12.4 N NEUTROPHIL % (test code = NT%) 83.8 % 42.2-75.2 H LYMPHOCYTE % (test code = LY%) 7.4 % 20.5-51.1 L MONOCYTE % (test code = MO%) 6.3 % 1.7-9.3 N EOSINOPHIL % (test code = EO%) 0.6 % 0.0-7.0 N BASOPHIL % (test code = BA%) 0.3 % 0-2.5 N NEUTROPHIL # (test code = NT#) 17.88 x10 3/uL 1.80-7.70 H LYMPHOCYTE # (test code = LY#) 1.58 x10 3/uL 1.00-4.80 N MONOCYTE # (test code = MO#) 1.34 x10 3/uL 0.00-0.80 H EOSINOPHIL # (test code = EO#) 0.12 x10 3/uL 0.00-0.45 N BASOPHIL # (test code = BA#) 0.07 x10 3/uL 0.0-0.20 N COAGULATION TIME [id number] 11:38:00* Test Item Value Reference Range Interpretation Comme nts COAGULATION TIME ACTIVATED ( test code = ACT) 142 SECONDS 74-137 H COAGULATION TIME [id number] 11:21:00* Test Item Value Reference Range Interpretation Comme nts COAGULATION TIME ACTIVATED ( test code = ACT) 482 SECONDS 74-137 H COAGULATION TIME [id number] 10:56:00* Test Item Value Reference Range Interpretation Comme nts COAGULATION TIME ACTIVATED ( test code = ACT) 650 SECONDS 74-137 H COAGULATION TIME [id number] 10:31:00* Test Item Value Reference Range Interpretation Comme nts COAGULATION TIME ACTIVATED ( test code = ACT) 709 SECONDS 74-137 H COAGULATION TIME [id number] 09:46:00* Test Item Value Reference Range Interpretation Comme nts COAGULATION TIME ACTIVATED ( test code = ACT) 725 SECONDS 74-137 H COAGULATION TIME [id number] 08:43:00* Test Item Value Reference Range Interpretation Comme nts COAGULATION TIME ACTIVATED ( test code = ACT) 157 SECONDS 74-137 H Novel Coronavirus 07:39:00* Test Item Value Reference Range Interpretation Comme nts Novel Coronavirus 2019 Inhouse (test code = [id number]) POSITIVE Negative A Critical [facility]ul t [id number] 0739 05/03/23Nurse read back result and tech confirmed it's correct? YPositive results are indicative of the presence heWOWS-[id number]-6 RNA, clinical correlation with patient historyand other diagnostic information is necessary to determinepatient infection status. Positive results do not rule outbacterial infection or co-infection with other viruses. Negative results do not preclude SARS-CoV-2 infection andshould not be used as the sole basis for patient managementdecisions. Negative results must be combined with otherclinical observations, patient history, and epidemiologicalinformation . Detection of SARS-CoV-2 RNA may be affected bysample collection methods, storage conditions, and/or stageof infection. Viral RNA mutations, vaccinations, antiviraltherapeutics, antibiotics, chemotherapeutic orimmunosuppressant drugs have not been evaluated for effectson detection. Results are for the identification of SARS-CoV-2 RNA usingreal-time (RT) polymerase chain reaction (PCR) technologyfor the qualitative detection of nucleic acids from iixCYUN-IfW-7 virus and diagnosis of SARS-CoV-2 virusinfection. It is an Emergency Use Authorization (EUA) testauthorized by the U.S. FDA. [id number] 07:00:00* Test Item Value Reference Range Interpretation Comme nts GLUBED (test code = GLUBED) 149 MG/DL 70-105 H [id number] 20:52:00* Test Item Value Reference Range Interpretation Comme nts GLUBED (test code = GLUBED) 158 MG/DL 70-105 H [id number] 17:24:00* Test Item Value Reference Range Interpretation Comme nts GLUBED (test code = GLUBED) 182 MG/DL 70-105 H [id number] 11:38:00* Test Item Value Reference Range Interpretation Comme nts GLUBED (test code = GLUBED) 136 MG/DL 70-105 H THROMBOPLASTIN TIME [id number] 09:13:00* Test Item Value Reference Range Interpretation Comme nts THROMBOPLASTIN TIME PARTIAL (test code = PTT) 70.5 secs 23.8-34.8 H INTERPRETATIVE D [place]: Therapeutic range: Unfractionated Heparin: 60-90 seconds Argatroban: 60-90 seconds [id number] 07:27:00* Test Item Value Reference Range Interpretation Comme nts GLUBED (test code = GLUBED) 155 MG/DL 70-105 H BASIC METABOLIC [id number] 06:37:00* Test Item Value Reference Range Interpretation Comme nts SODIUM (test code = NA) 136 mmol/L 136-145 N POTASSIUM (test code = K) 3.9 mmol/L 3.5-5.1 N CHLORIDE (test code = CL) 103 mmol/l 98-107 N CARBON DIOXIDE (test code = CO2) 26 mmol/L 20-31 N GLUCOSE (test code = GLU) 118 mg/dL 74-106 H BLOOD UREA NITROGEN (test code = BUN) 9 mg/dL 9-23 N GLOMERULAR FILTRATION RATE (test code = GFR) >=60 max estimate mL/min >60 The Glomerular Filtration Rate is a calculated parameterbased on serum Creatinine, patient age and sex. GFR valuesless than 60 mL/min/1.73 square meters are indicative ofChronic Kidney Disease. Values less than 15 mL/min/1.73square meters indicate Kidney failure. The calculation forGFR is based on the CKD-EPI (2020) calculation. This formulais race indifferent and is the recommended formula for GFRby the National Kidney Foundation for Adults.The GFR will not calculate if the sex is unknown or if thepatient's age is <18 years. CREATININE (test code = CREAT) 0.60 mg/dL 0.70-1.30 L CALCIUM (test code = CA) 8.4 mg/dL 8.7-10.4 L CBC W/AUTO [id number] 06:17:00* Test Item Value Reference Range Interpretation Comme nts WHITE BLOOD CELL (test code = WBC) 10.8 x10 3/uL 4.8-10.8 N RED BLOOD CELL (test code = RBC) 4.89 x10 6/uL 4.70-6.10 N HEMOGLOBIN (test code = HGB) 13.3 g/dL 14.0-18.0 L HEMATOCRIT (test code = HCT) 38.5 % 42.0-52.0 L MEAN CELL VOLUME (test code = MCV) 78.7 fL 80.0-94.0 L MEAN CELL HGB (test code = MCH) 27.2 pg 27-31 N MEAN CELL HGB CONCENTRATION (test code = MCHC) 34.5 G/DL 33-36.5 N RED CELL DISTRIBUTION WIDTH (test code = RDW) 12.9 % 12.9-16.9 N PLATELET COUNT (test code = PLT) 313 x10 3/uL 150-440 N MEAN PLATELET VOLUME (test c ode = MPV) 9.4 fL 8.9-12.4 N NEUTROPHIL % (test code = NT%) 56.4 % 42.2-75.2 N LYMPHOCYTE % (test code = LY%) 29.4 % 20.5-51.1 N MONOCYTE % (test code = MO%) 9.5 % 1.7-9.3 H EOSINOPHIL % (test code = EO%) 3.3 % 0.0-7.0 N BASOPHIL % (test code = BA%) 0.6 % 0-2.5 N NEUTROPHIL # (test code = NT#) 6.08 x10 3/uL 1.80-7.70 N LYMPHOCYTE # (test code = LY#) 3.17 x10 3/uL 1.00-4.80 N MONOCYTE # (test code = MO#) 1.02 x10 3/uL 0.00-0.80 H EOSINOPHIL # (test code = EO#) 0.36 x10 3/uL 0.00-0.45 N BASOPHIL # (test code = BA#) 0.06 x10 3/uL 0.0-0.20 N THROMBOPLASTIN TIME [id number] 00:33:00* Test Item Value Reference Range Interpretation Comme [facility] THROMBOPLASTIN TIME PARTIAL (test code = PTT) 54.0 secs 23.8-34.8 H INTERPRETATIVE [place]: Therapeutic range: Unfractionated Heparin: 60-90 seconds Argatroban: 60-90 seconds [id number] 20:55:00* Test Item Value Reference Range Interpretation Comme nts GLUBED (test code = GLUBED) 190 MG/DL 70-105 H THROMBOPLASTIN TIME [id number] 17:02:00* Test Item Value Reference Range Interpretation Comme [facility] THROMBOPLASTIN TIME PARTIAL (test code = PTT) 120.7 secs 23.8-34.8 HH Critical Value reported toFirst Name:NHI Last Name:ALYSHA READ BACK AND VERIFIEDby [id number], on 05/01/23, @ 0212.INTERPRETATIVE DATA: Therapeutic range: Unfractionated Heparin: 60-90 seconds Argatroban: 60-90 seconds COVID 19 Asymptomatic IH [id number] 11:47:00* Test Item Value Reference Range Interpretation Comme nts COVID 19 Asymptomatic IH AG (test code = COVNONPUIAG) NEGATIVE NEGATIVE Negative results , from patients with symptom onset beyondfive days, should be treated as presumptive and confirmationwith a molecular assay, if necessary for patientmanagement, may be performed. Negative results do not ruleout COVID-19 and should not be used as the sole basis fortreatment or patient management decisions, includinginfection control decisions. Negative results should beconsidered in the context of a patient's recent exposures,history and the presence of clinical signs and symptomsconsistent with COVID-19. [id number] 10:55:00* Test Item Value Reference Range Interpretation Comme nts GLUBED (test code = GLUBED) 273 MG/DL 70-105 H THROMBOPLASTIN TIME [id number] 09:57:00* Test Item Value Reference Range Interpretation Comme nts THROMBOPLASTIN TIME PARTIAL (test code = PTT) 57.3 secs 23.8-34.8 H INTERPRETATIVE [place]: Therapeutic range: Unfractionated Heparin: 60-90 seconds Argatroban: 60-90 seconds CBC W/AUTO [id number] 09:49:00* Test Item Value Reference Range Interpretation Comme nts WHITE BLOOD CELL (test code = WBC) 9.4 x10 3/uL 4.8-10.8 N RED BLOOD CELL (test code = RBC) 5.01 x10 6/uL 4.70-6.10 N HEMOGLOBIN (test code = HGB) 13.5 g/dL 14.0-18.0 L HEMATOCRIT (test code = HCT) 39.1 % 42.0-52.0 L MEAN CELL VOLUME (test code = MCV) 78.0 fL 80.0-94.0 L MEAN CELL HGB (test code = MCH) 26.9 pg 27-31 L MEAN CELL HGB CONCENTRATION (test code = MCHC) 34.5 G/DL 33-36.5 N RED CELL DISTRIBUTION WIDTH (test code = RDW) 12.9 % 12.9-16.9 N PLATELET COUNT (test code = PLT) 352 x10 3/uL 150-440 N MEAN PLATELET VOLUME (test c ode = MPV) 9.5 fL 8.9-12.4 N NEUTROPHIL % (test code = NT%) 69.2 % 42.2-75.2 N LYMPHOCYTE % (test code = LY%) 20.1 % 20.5-51.1 L MONOCYTE % (test code = MO%) 6.9 % 1.7-9.3 N EOSINOPHIL % (test code = EO%) 2.8 % 0.0-7.0 N BASOPHIL % (test code = BA%) 0.3 % 0-2.5 N NEUTROPHIL # (test code = NT#) 6.52 x10 3/uL 1.80-7.70 N LYMPHOCYTE # (test code = LY#) 1.89 x10 3/uL 1.00-4.80 N MONOCYTE # (test code = MO#) 0.65 x10 3/uL 0.00-0.80 N EOSINOPHIL # (test code = EO#) 0.26 x10 3/uL 0.00-0.45 N BASOPHIL # (test code = BA#) 0.03 x10 3/uL 0.0-0.20 N Spec Comments: STAT if not done within 24HR prior to Hep initiat.GLUBED 2023-05-01 07:37:00* Test Item Value Reference Range Interpretation Comme nts GLUBED (test code = GLUBED) 168 MG/DL 70-105 H THROMBOPLASTIN TIME [id number] 03:09:00* Test Item Value Reference Range Interpretation Comme nts THROMBOPLASTIN TIME PARTIAL (test code = PTT) 40.8 secs 23.8-34.8 H INTERPRETATIVE [place]: Therapeutic range: Unfractionated Heparin: 60-90 seconds Argatroban: 60-90 seconds [id number] 20:58:00* Test Item Value Reference Range Interpretation Comme nts GLUBED (test code = GLUBED) 171 MG/DL 70-105 H THROMBOPLASTIN TIME [id number] 19:22:00* Test Item Value Reference Range Interpretation Comme nts THROMBOPLASTIN TIME PARTIAL (test code = PTT) 108.6 secs 23.8-34.8 HH Critical Value reported toFirst Name:KAYLYNN Last Name:ARUNA READ BACK AND VERIFIEDby [id number], on 04/30/23, @ 1922.INTERPRETATIVE DATA: Therapeutic range: Unfractionated Heparin: 60-90 seconds Argatroban: 60-90 seconds [id number] 16:20:00* Test Item Value Reference Range Interpretation Comme nts GLUBED (test code = GLUBED) 115 MG/DL 70-105 H COMPREHENSIVE METABOLIC [id number] 12:50:00* Test Item Value Reference Range Interpretation Comme nts SODIUM (test code = NA) 134 mmol/L 136-145 L POTASSIUM (test code = K) 4.1 mmol/L 3.5-5.1 N CHLORIDE (test code = CL) 100 mmol/l 98-107 N CARBON DIOXIDE (test code = CO2) 28 mmol/L 20-31 N GLUCOSE (test code = GLU) 191 mg/dL 74-106 H BLOOD UREA NITROGEN (test code = BUN) 10 mg/dL 9-23 N GLOMERULAR FILTRATION RATE (test code = GFR) >=60 max estimate mL/min >60 The Glomerular Filtration Rate is a calculated parameterbased on serum Creatinine, patient age and sex. GFR valuesless than 60 mL/min/1.73 square meters are indicative ofChronic Kidney Disease. Values less than 15 mL/min/1.73square meters indicate Kidney failure. The calculation forGFR is based on the CKD-EPI (2020) calculation. This formulais race indifferent and is the recommended formula for GFRby the National Kidney Foundation for Adults.The GFR will not calculate if the sex is unknown or if thepatient's age is <18 years. CREATININE (test code = CREAT) 0.70 mg/dL 0.70-1.30 N TOTAL PROTEIN (test code = PROT) 6.8 g/dL 5.7-8.2 N ALBUMIN (test code = ALB) 4.1 g/dL 3.2-4.8 N CALCIUM (test code = CA) 9.2 mg/dL 8.7-10.4 N BILIRUBIN TOTAL (test code = BILT) 0.8 mg/dL 0.3-1.2 N SGOT/AST (test code = AST) 16 U/L <34 N SGPT/ALT (test code = ALT) 34 U/L 10-49 N ALKALINE PHOSPHATASE (test code = ALKP) 109.0 U/L 46-116 N THROMBOPLASTIN TIME [id number] 12:23:00* Test Item Value Reference Range Interpretation Comme nts THROMBOPLASTIN TIME PARTIAL (test code = PTT) 54.0 secs 23.8-34.8 H INTERPRETATIVE [place]: Therapeutic range: Unfractionated Heparin: 60-90 seconds Argatroban: 60-90 seconds [id number] 10:42:00* Test Item Value Reference Range Interpretation Comme nts GLUBED (test code = GLUBED) 280 MG/DL 70-105 H [id number] 07:47:00* Test Item Value Reference Range Interpretation Comme nts GLUBED (test code = GLUBED) 265 MG/DL 70-105 H THROMBOPLASTIN TIME [id number] 04:51:00* Test Item Value Reference Range Interpretation Comme nts THROMBOPLASTIN TIME PARTIAL (test code = PTT) 109.7 secs 23.8-34.8 HH Critical Value reported toFirst Name:DAISHA Last Name:KENYATTA READ BACK AND VERIFIEDby [id number], on 04/30/23, @ 2993.INTERPRETATIVE DATA: Therapeutic range: Unfractionated Heparin: 60-90 seconds Argatroban: 60-90 seconds CBC W/AUTO [id number] 04:29:00* Test Item Value Reference Range Interpretation Comme nts WHITE BLOOD CELL (test code = WBC) 10.2 x10 3/uL 4.8-10.8 N RED BLOOD CELL (test code = RBC) 4.88 x10 6/uL 4.70-6.10 N HEMOGLOBIN (test code = HGB) 13.3 g/dL 14.0-18.0 L HEMATOCRIT (test code = HCT) 38.5 % 42.0-52.0 L MEAN CELL VOLUME (test code = MCV) 78.9 fL 80.0-94.0 L MEAN CELL HGB (test code = MCH) 27.3 pg 27-31 N MEAN CELL HGB CONCENTRATION (test code = MCHC) 34.5 G/DL 33-36.5 N RED CELL DISTRIBUTION WIDTH (test code = RDW) 12.7 % 12.9-16.9 L PLATELET COUNT (test code = PLT) 330 x10 3/uL 150-440 N MEAN PLATELET VOLUME (test c ode = MPV) 9.5 fL 8.9-12.4 N NEUTROPHIL % (test code = NT%) 56.8 % 42.2-75.2 N LYMPHOCYTE % (test code = LY%) 29.8 % 20.5-51.1 N MONOCYTE % (test code = MO%) 8.4 % 1.7-9.3 N EOSINOPHIL % (test code = EO%) 3.6 % 0.0-7.0 N BASOPHIL % (test code = BA%) 0.5 % 0-2.5 N NEUTROPHIL # (test code = NT#) 5.80 x10 3/uL 1.80-7.70 N LYMPHOCYTE # (test code = LY#) 3.05 x10 3/uL 1.00-4.80 N MONOCYTE # (test code = MO#) 0.86 x10 3/uL 0.00-0.80 H EOSINOPHIL # (test code = EO#) 0.37 x10 3/uL 0.00-0.45 N BASOPHIL # (test code = BA#) 0.05 x10 3/uL 0.0-0.20 N Spec Comments: STAT if not done within 24HR prior to Hep initiat.GLUBED 2023-04-29 20:46:00* Test Item Value Reference Range Interpretation Comme nts GLUBED (test code = GLUBED) 249 MG/DL 70-105 H [id number] 16:35:00* Test Item Value Reference Range Interpretation Comme nts GLUBED (test code = GLUBED) 206 MG/DL 70-105 H THROMBOPLASTIN TIME [id number] 14:17:00* Test Item Value Reference Range Interpretation Comme nts THROMBOPLASTIN TIME PARTIAL (test code = PTT) 90.2 secs 23.8-34.8 H INTERPRETATIVE [place]: Therapeutic range: Unfractionated Heparin: 60-90 seconds Argatroban: 60-90 seconds - DUP VEIN [id number] 13:23:00 [facility] : 1955 Sex: MPatient Name: LUIS GUZMÁN Unit No: [id number] EXAMS: CPT CODE: [id number] DUP VEIN DOMINIQUE 05637 Exam: Ultrasound venous Doppler, bilateral, vein mapping Location: A1 REASON FOR EXAM: Vein mapping - preop CABG COMPARISON: None. TECHNIQUE: Doppler, fried- scale and color-flow imaging of the bilaterallower extremity venous system was performed. FINDINGS: The femoral vein has a normal appearance. The vessel show normal compressibility, color flow and doppler augmentation. RIGHT (centimeters): Greatersaphenous vein above the knee Proximal: 0.3 Mid: 0.3 Distal: 0.4 Knee: 0.3 Great saphenous vein below the knee- Proximal: 0.2 Mid: 0.2 Distal: 0.3 Small saphenous vein- Proximal: 0.4 Mid: 0.2 Distal: 2.2 Femoral vein Proximal: 0.6 Mid: 0.6 Distal: 0.9 LEFT (CENTIMETERS): Greater saphenous vein above the knee Proximal: 0.7 Mid: 0.6 Distal: 0.6 Knee: 0.5 Great saphenous vein below the knee- Proximal: 0.4 Mid: 0.4 Distal: 0.3 Small saphenous vein- Proximal: 0.3 Mid: 0.4 Distal: 0.4 Name: LUIS GUZMÁN [facility] Phys: Reyna Rivas [address] : 1955 Age: 67Sex: [place] [phone] Loc: [id number] A Exam Date: 04/29/2023 Status: ADM IN PH: FAX: PAGE 1 Signed Report (CONTINUED) Patient Name: LUIS GUZMÁN Unit No: [id number] EXAMS: CPT CODE: [id number] DUP VEIN DOMINIQUE 41083 (Continued) Femoral vein Proximal: 0.8 Mid: 0.6 Distal: 0.8 IMPRESSION: Bilateral lower extremity venous mapping as above. at 1323 Reported and signed by: MAY MCKINLEY M.D. CC: No Primary Care Physician; Reyna العلي; Rajesh Kilgore MD Technologist: BRITT DOYLE Probe: Trscr Dt/Tm: 04/29/2023 (1323) by:Lena Printed Date/Time: 04/29/2023 (7956) Name: LUIS GUZMÁN [facility] Phys: Reyna Rivas [address] : 1955 Age: 67 Sex: [place] [phone] Loc: P.[phone] A Exam Date: 04/29/2023 Status: ADM IN PH: FAX: PAGE 2 Signed Report- DUP EXTRACRANIAL [id number] 12:54:00[facility] : 1955 Sex: MPatient Name: LUIS GUZMÁN Unit No: [id number] EXAMS: CPT CODE: [id number] DUP EXTRACRANIAL DOMINIQUE 92596 BILATERAL CAROTID ARTERY ULTRASOUND 04/29/2023 CLINICAL INDICATION: Preop COMPARISON: None available LOCATION: W1 TECHNIQUE: Transcutaneous sonography of bilateral carotid systems was performed with fried scale, spectral, color-flow and Doppler analysis. FINDINGS: There is no remarkable atheroscle rotic plaque deposition in either common, internal, or external carotid artery. Peak systolic velocities and flow velocity ratios are normal. Flow is antegrade in both vertebral arteries. IMPRESSION:No evidence for hemodynamically significant stenosis in either internal carotid artery. at 1254 Reported and signed by: LADONNA Trevino CC: No Primary Care Physician; Reyna العلي; Rajesh Kilgore MD Technologist: BRITT DOYLE Probe: Trscr Dt/Tm: 04/29/2023 (1254) by:[email or web address] Printed Date/Time: 04/29/2023 (1941) Name: LUIS GUZMÁN [facility] Phys: Reyna Rivas [address] : 1955 Age: 67 Sex: [place] [phone] Loc: P.[phone] A Exam Date: 04/29/2023 Status: ADM IN PH: FAX: PAGE 1 Signed ReportGLUBED 2023-04-29 12:37:00* Test Item Value Reference Range Interpretation Comme nts GLUBED (test code = GLUBED) 186 MG/DL 70-105 H - CT CHEST W/O [id number] 11:07:00 [facility] : 1955 Sex: MPatient Name: LUIS GUZMÁN Unit No: [id number] EXAMS: CPT CODE: [id number] CT CHEST W/O CONTRAST 13638 Exam: CT of the thorax without contrast Location: A1 HISTORY: , preop CABG, COMPARISON: None available TECHNIQUE: Axial images of the thorax were obtained without contrast. Images were reformattedto create coronal and sagittal reconstructions . One or more of the following dose reduction techniq ues were used: Automated exposure control, adjustment of the mA and/or kV according to patient size, and/or utilization of iterative reconstruction technique. DLP: mGy-cm. FINDINGS: Heart is normal in size. Coronary artery calcifications are present. There is also mitral valve calcification. There is no pericardial effusion. The unopacified pulmonary trunk and thoracic aorta are within normal limits. There are scattered lymph nodes throughout the mediastinum, none of which are pathologic by imaging criteria. There is bandlike scarring versus subsegmental atelectasis of the bilateral lower lobes. There is calcified nodule measuring 0.2 cm in the left upper lobe. No further nodules or mass lesions are seen. No further airspace densities are identified. No bronchiectasis. There are no pleural effusions or pneumothorax. Visualized intra-abdominal contents are unremarkable. Mild spondylosis is noted in the mid thoracic spine. No discrete osteolytic or osteosclerotic lesions are seen. IMPRESSION: 1. Bandlike scarring versus subsegmental atelectasis at the bilateral lower lobes. 2. Coronary artery calcifications are noted. No cardiomegaly. at 1107 Reported and signed by: MAY MCKINLEY M.D. CC: No Primary Care Physician; Rajesh Kilgore MD Technologist: ALEX BEARD RT(R); Marianne Tripathi CTDI: 5.54 DLP: 238 Trscr Dt/Tm: 04/29/2023 (1107) by:[email or web address] Printed Date/Time: 04/29/2023 (1110) Name: LUIS GUZMÁN [facility] Phys: Rajesh Livingston MD [address] : 1955 Age: 67 Sex: [place] [phone] Loc: P.[phone] A Exam Date: 04/29/2023 Status: ADM IN PH: FAX: PAGE 1 Signed [id number] 07:48:00* Test Item Value Reference Range Interpretation Comme nts GLUBED (test code = GLUBED) 228 MG/DL 70-105 H THROMBOPLASTIN TIME [id number] 07:26:00* Test Item Value Reference Range Interpretation Comme nts THROMBOPLASTIN TIME PARTIAL (test code = PTT) 89.9 secs 23.8-34.8 H INTERPRETATIVE [place]: Therapeutic range: Unfractionated Heparin: 60-90 seconds Argatroban: 60-90 seconds CBC W/AUTO [id number] 07:08:00* Test Item Value Reference Range Interpretation Comme nts WHITE BLOOD CELL (test code = WBC) 7.6 x10 3/uL 4.8-10.8 N RED BLOOD CELL (test code = RBC) 4.59 x10 6/uL 4.70-6.10 L HEMOGLOBIN (test code = HGB) 12.5 g/dL 14.0-18.0 L HEMATOCRIT (test code = HCT) 36.4 % 42.0-52.0 L MEAN CELL VOLUME (test code = MCV) 79.3 fL 80.0-94.0 L MEAN CELL HGB (test code = MCH) 27.2 pg 27-31 N MEAN CELL HGB CONCENTRATION (test code = MCHC) 34.3 G/DL 33-36.5 N RED CELL DISTRIBUTION WIDTH (test code = RDW) 12.8 % 12.9-16.9 L PLATELET COUNT (test code = PLT) 291 x10 3/uL 150-440 N MEAN PLATELET VOLUME (test c ode = MPV) 9.7 fL 8.9-12.4 N NEUTROPHIL % (test code = NT%) 60.1 % 42.2-75.2 N LYMPHOCYTE % (test code = LY%) 25.5 % 20.5-51.1 N MONOCYTE % (test code = MO%) 9.5 % 1.7-9.3 H EOSINOPHIL % (test code = EO%) 3.2 % 0.0-7.0 N BASOPHIL % (test code = BA%) 0.8 % 0-2.5 N NEUTROPHIL # (test code = NT#) 4.57 x10 3/uL 1.80-7.70 N LYMPHOCYTE # (test code = LY#) 1.94 x10 3/uL 1.00-4.80 N MONOCYTE # (test code = MO#) 0.72 x10 3/uL 0.00-0.80 N EOSINOPHIL # (test code = EO#) 0.24 x10 3/uL 0.00-0.45 N BASOPHIL # (test code = BA#) 0.06 x10 3/uL 0.0-0.20 N Spec Comments: STAT if not done within 24HR prior to Hep initiat.THROMBOPLASTIN TIME [id number] 00:22:00* Test Item Value Reference Range Interpretation Comme nts THROMBOPLASTIN TIME PARTIAL (test code = PTT) 95.2 secs 23.8-34.8 H INTERPRETATIVE [place]: Therapeutic range: Unfractionated Heparin: 60-90 seconds Argatroban: 60-90 seconds [id number] 17:01:00* Test Item Value Reference Range Interpretation Comme nts GLUBED (test code = GLUBED) 175 MG/DL 70-105 H URINALYSIS [id number] 16:30:00* Test Item Value Reference Range Interpretation Comme nts UA COLOR (test code = COLU) YELLOW DISCRIPT YELLOW UA APPEARANCE (test code = APPU) CLEAR DISCRIPT CLEAR UA GLUCOSE DIPSTICK (test code = DGLUU) 100 mg/dL NEGATIVE A UA BILIRUBIN DIPSTICK (test code = BILU) NEGATIVE NEGATIVE UA KETONE DIPSTICK (test cod e = KETU) NEGATIVE mg/dL NEGATIVE UA SPECIFIC GRAVITY (test code = SGU) 1.010 1.005-1.030 UA BLOOD DIPSTICK (test code = TORIBIO) NEGATIVE NEGATIVE UA PH DIPSTICK (test code = SHAHEED) 7.0 5.0-9.0 UA PROTEIN DIPSTICK (test code = PROU) NEGATIVE mg/dL NEGATIVE UA UROBILINOGEN DIPSTICK (test code = URO) 0.2 mg/dL 0.2-1.0 UA NITRITE DIPSTICK (test code = CAMILA) NEGATIVE NEGATIVE UA LEUKOCYTE ESTERASE DIPSTICK (test code = LEUU) NEGATIVE NEGATIVE HGBA1C - GLYCOSYLATED [id number] 15:26:00* Test Item Value Reference Range Interpretation Comme nts GLYCOSYLATED HEMOGLOBIN (HA1C) (test code = GLYHGB) 8.2 % <5.7 H Diabetic >/= 6.5%Prediabetes 5.7-6.4%Normal < 5.7% COMPREHENSIVE METABOLIC [id number] 15:26:00* Test Item Value Reference Range Interpretation Comme nts SODIUM (test code = NA) 138 mmol/L 136-145 N POTASSIUM (test code = K) 4.8 mmol/L 3.5-5.1 N CHLORIDE (test code = CL) 104 mmol/l 98-107 N CARBON DIOXIDE (test code = CO2) 31 mmol/L 20-31 N GLUCOSE (test code = GLU) 246 mg/dL 74-106 H BLOOD UREA NITROGEN (test code = BUN) 16 mg/dL 9-23 N GLOMERULAR FILTRATION RATE (test code = GFR) >=60 max estimate mL/min >60 The Glomerular Filtration Rate is a calculated parameterbased on serum Creatinine, patient age and sex. GFR valuesless than 60 mL/min/1.73 square meters are indicative ofChronic Kidney Disease. Values less than 15 mL/min/1.73square meters indicate Kidney failure. The calculation forGFR is based on the CKD-EPI (2020) calculation. This formulais race indifferent and is the recommended formula for GFRby the National Kidney Foundation for Adults.The GFR will not calculate if the sex is unknown or if thepatient's age is <18 years. CREATININE (test code = CREAT) 0.80 mg/dL 0.70-1.30 N TOTAL PROTEIN (test code = PROT) 6.1 g/dL 5.7-8.2 N ALBUMIN (test code = ALB) 3.8 g/dL 3.2-4.8 N CALCIUM (test code = CA) 8.5 mg/dL 8.7-10.4 L BILIRUBIN TOTAL (test code = BILT) 0.8 mg/dL 0.3-1.2 N SGOT/AST (test code = AST) 18 U/L <34 N SGPT/ALT (test code = ALT) 47 U/L 10-49 N ALKALINE PHOSPHATASE (test code = ALKP) 108.0 U/L 46-116 N PROTHROMBIN [id number] 15:17:00* Test Item Value Reference Range Interpretation Comme nts PROTHROMBIN TIME PATIENT (test code = PTP) 12.3 SECONDS 10.3-12.9 N INTERNATIONAL NORMAL RATIO (test code = INR) 1.10 0.9-1.11 N INR goals are individualized based on patient specificfactors. The following are only general guidelines: Indications: INR Goal:1. Treatment of venous thromboembolism and 2.0 - 3.0 systemic anticoagulation in a variety of conditions, including atrial fibrillation and mechanical heart valves 2. Mechanical mitral and tricuspid valves, 2.5 - 3.5 systemic anticoagulation for high-risk conditions Spec Comments: STAT if not done within 24HR prior to Hep initiat.THROMBOPLASTIN TIME [id number] 15:17:00* Test Item Value Reference Range Interpretation Comme nts THROMBOPLASTIN TIME PARTIAL (test code = PTT) 33.4 secs 23.8-34.8 N INTERPRETATIVE [place]: Therapeutic range: Unfractionated Heparin: 60-90 seconds Argatroban: 60-90 seconds Spec Comments: STAT if not done within 24HR prior to Hep initiat.CBC W/AUTO DIFF 2023-04-28 15:16:00* Test Item Value Reference Range Interpretation Comme nts WHITE BLOOD CELL (test code = WBC) 8.0 x10 3/uL 4.8-10.8 N RED BLOOD CELL (test code = RBC) 4.95 x10 6/uL 4.70-6.10 N HEMOGLOBIN (test code = HGB) 13.2 g/dL 14.0-18.0 L HEMATOCRIT (test code = HCT) 39.6 % 42.0-52.0 L MEAN CELL VOLUME (test code = MCV) 80.0 fL 80.0-94.0 N MEAN CELL HGB (test code = MCH) 26.7 pg 27-31 L MEAN CELL HGB CONCENTRATION (test code = MCHC) 33.3 G/DL 33-36.5 N RED CELL DISTRIBUTION WIDTH (test code = RDW) 13.1 % 12.9-16.9 N PLATELET COUNT (test code = PLT) 346 x10 3/uL 150-440 N MEAN PLATELET VOLUME (test c ode = MPV) 9.5 fL 8.9-12.4 N NEUTROPHIL % (test code = NT%) 62.8 % 42.2-75.2 N LYMPHOCYTE % (test code = LY%) 22.0 % 20.5-51.1 N MONOCYTE % (test code = MO%) 10.6 % 1.7-9.3 H EOSINOPHIL % (test code = EO%) 2.8 % 0.0-7.0 N BASOPHIL % (test code = BA%) 0.4 % 0-2.5 N NEUTROPHIL # (test code = NT#) 5.00 x10 3/uL 1.80-7.70 N LYMPHOCYTE # (test code = LY#) 1.75 x10 3/uL 1.00-4.80 N MONOCYTE # (test code = MO#) 0.84 x10 3/uL 0.00-0.80 H EOSINOPHIL # (test code = EO#) 0.22 x10 3/uL 0.00-0.45 N BASOPHIL # (test code = BA#) 0.03 x10 3/uL 0.0-0.20 N Spec Comments: STAT if not done within 24HR prior to Hep initiat.GLUCOSE BEDSIDE [id number] 12:24:00* Test Item Value Reference Range Interpretation Comme nts GLUCOSE BEDSIDE TESTING (tc t code = GLUBED) 134 mg/dL 70-110 H COMPREHENSIVE METABOLIC [id number] 08:23:00* Test Item Value Reference Range Interpretation Comme nts SODIUM (test code = NA) 139 mmol/L 134-147 N POTASSIUM (test code = K) 4.3 mmol/L 3.4-5.0 N CHLORIDE (test code = CL) 102 mmol/L 100-108 N CARBON DIOXIDE (test code = CO2) 29 mmol/L 21-32 N ANION GAP (test code = GAP) 8.0 GAP calc 4.0-15.0 N GLUCOSE (test code = GLU) 224 MG/DL 70-110 H BLOOD UREA NITROGEN (test code = BUN) 18 MG/DL 7-18 N GLOMERULAR FILTRATION RATE (test code = GFR) >=60 max estimate estGFR >60 The Glomerular Filtration Rate is a calculated parameterbased on serum Creatinine, patient age and sex. GFR valuesless than 60 mL/min/1.73 square meters are indicative ofChronic Kidney Disease. Values less than 15 mL/min/1.73square meters indicate Kidney failure. The calculation forGFR is based on the CKD-EPI (202) calculation. This formulais race indifferent and is the recommended formula for GFRby the National Kidney Foundation for Adults.The GFR will not calculate if the sex is unknown or if thepatient's age is <18 years. CREATININE (test code = CREAT) 0.8 MG/DL 0.8-1.3 N TOTAL PROTEIN (test code = PROT) 7.0 G/DL 6.4-8.2 N ALBUMIN (test code = ALB) 3.4 G/DL 3.4-5.0 N GLOBULIN (test code = GLOB) 3.6 GM/dL ALBUMIN/GLOBULIN RATIO (test code = A/G) 0.9 RATIO 1.2-2.2 L CALCIUM (test code = CA) 9.1 MG/DL 8.5-10.1 N BILIRUBIN TOTAL (test code = BILT) 0.70 MG/DL 0.2-1.2 N SGOT/AST (test code = AST) 19 Unit/L 15-37 N SGPT/ALT (test code = ALT) 64 Unit/L 12-78 N ALKALINE PHOSPHATASE TOTAL (test code = ALKP) 132 Unit/L 50-136 N LIPID PROFILE (CORONARY RISK)2023-04-28 08:23:00* Test Item Value Reference Range Interpretation Comme nts TRIGLYCERIDES (test code = TRIG) 47 MG/DL 0-150 N CHOLESTEROL (test code = CHOL) 78 MG/DL 133-200 L CHOLESTEROL/HDL RATIO (test code = CHOLHDL) 2.23 RATIO See_Comment RISK ASSOCIATED WITH CHOL/HDL RATIOS: RISK MALE FEMALE1/2 AVERAGE 3.43 3.27AVERAGE 4.97 4.442X AVERAGE 9.55 7.053X AVERAGE 23.39 11.04 NOTE THAT THE REFERENCE VALUE IS RELATED TO RISK LEVELS ASRECOMMENDED BY THE [facility]. [Automated message] The system which generated this result transmitted reference range: 0-. The reference range was not used to interpret this result as normal/abnormal. HDL CHOLESTEROL (test code = HDL) 35 MG/DL 40-59 L NON-HDL CHOLESTEROL (test code = NHDL) 43 mg/dL <130 LIPOPROTEIN LDL (test code = LDL) 36 MG/DL 0-129 N <100 [id number] 0 - 129 NEAR OPTIMAL/ABOVE [id number] - 159 [id number] - 189 HIGH>OR= 190 VERY HIGHNOTE THAT GUIDELINES ARE PROVIDED BY NATIONAL CHOLESTEROLEDUCATION PROGRAM ADULT TREATMENT PANEL III LDL/HDL (test code = LDL/HDL) 1.02 Ratio See_Comment L [Automated messa ge] The system which generated this result transmitted reference range: 1.48-3.22 Avg. The reference range was not used to interpret this result as normal/abnormal. [id number] 08:23:00* Test Item Value Reference Range Interpretation Comme nts MAGNESIUM (test code = MAG) 1.8 MG/DL 1.8-2.4 N PROTHROMBIN [id number] 08:05:00* Test Item Value Reference Range Interpretation Comme nts PT PATIENT (test code = PTP) 12.7 SECONDS 9.3-12.9 N INTERNATIONAL NORMAL RATIO (test code = INR) 1.15 INR Unit 0.8-1.2 N TARGET INR BY INDICATION Indication INR1. Prophylaxis of venous thrombosis 2.0 - 3.0 (orthopedic surgery), Prophylaxis of venous thrombosis (other than high-risk surgery), Treatment of Deep Vein Thrombosis/Pulmonary Embolism, Prevention of systemic embolism - Tissue heart valves, Acute Myocardial Infarction (to prevent systemic embolism), Valvular heart disease, Acute Myocardial Infarction (to prevent systemic embolism), Valvular heart disease, Atrial Fibrillation, Bileaflet mechanical valve in aortic position.2. Mechanical prosthetic valves (high risk), 2.5 - 3.5 Presence of Lupus Anticoagulant or Antiphospholipid Antibodies, Prevention of systemic embolism - Acute Myocardial Infarction (to prevent recurrent infarct). CBC W/AUTO [id number] 07:33:00* Test Item Value Reference Range Interpretation Comme nts WHITE BLOOD CELL (test code = WBC) 10.0 K/mm3 3.5-11.0 N RED BLOOD CELL (test code = RBC) 5.22 M/mm3 4.70-6.10 N HEMOGLOBIN (test code = HGB) 14.1 G/DL 12.3-15.9 N HEMATOCRIT (test code = HCT) 40.8 % 35.8-46.7 N MEAN CELL VOLUME (test code = MCV) 78.2 Fl 86.3-98.9 L MEAN CELL HGB (test code = MCH) 27.0 pg 28.9-34.4 L MEAN CELL HGB CONCETRATION (test code = MCHC) 34.6 G/DL 32.1-34.5 H RED CELL DISTRIBUTION WIDTH (test code = RDW) 12.8 SD 11.5-14.5 N PLATELET COUNT (test code = PLT) 390 K/mm3 150-450 N MEAN PLATELET VOLUME (test c ode = MPV) 9.40 fL 7.0-9.6 N NEUTROPHIL % (test code = NT%) 63.8 % 40-76 N IMMATURE GRANULOCYTE % (test code = IG%) 1.7 % 0.0-5.0 N LYMPHOCYTE % (test code = LY%) 18.5 % 20.5-51.1 L MONOCYTE % (test code = MO%) 11.8 % 1.7-9.3 H EOSINOPHIL % (test code = EO%) 3.7 % 0.0-6.0 N BASOPHIL % (test code = BA%) 0.5 % 0.0-2.0 N NUCLEATED RBC % (test code = NRBC%) 0.0 /100WBC% 0.0-1.0 N NEUTROPHIL # (test code = NT#) 6.4 K/mm3 1.8-7.6 N IMMATURE GRANULOCYTE # (test code = IG#) 0.17 x10 3/uL 0.00-0.03 H LYMPHOCYTE # (test code = LY#) 1.8 K/mm3 0.6-3.0 N MONOCYTE # (test code = MO#) 1.2 K/mm3 0.2-1.5 N EOSINOPHIL # (test code = EO#) 0.4 K/mm3 0.0-0.4 N BASOPHIL # (test code = BA#) 0.1 K/mm3 0.0-0.2 N NUCLEATED RBC # (test code = NRBC#) 0.0 K/mm3 0.00-0.01 N POCT GLUCOSE (AUTOMATED)2023-04-20 22:05:46* Test Item Value Reference Range Interpretation Comme nts POCT GLU (test code = 1409507870) 120 mg/dL 70-110 H Lab Interpretation (test cod e = 32373-4) Abnormal [facility] GLUCOSE (AUTOMATED)2023-04-20 17:37:10* Test Item Value Reference Range Interpretation Comme nts POCT GLU (test code = 9262620360) 155 mg/dL 70-110 H Lab Interpretation (test cod e = 72407-2) Abnormal [facility] GLUCOSE (AUTOMATED)2023-04-20 13:23:44* Test Item Value Reference Range Interpretation Comme nts POCT GLU (test code = 8480211980) 76 mg/dL 70-110 Lab Interpretation (test cod e = 67754-7) Normal [facility] GLUCOSE (AUTOMATED)2023-04-20 02:44:17* Test Item Value Reference Range Interpretation Comme nts POCT GLU (test code = 8978536682) 141 mg/dL 70-110 H Lab Interpretation (test cod e = 50476-9) Abnormal [facility] GLUCOSE (AUTOMATED)2023-04-19 22:21:36* Test Item Value Reference Range Interpretation Comme nts POCT GLU (test code = 6622313832) 136 mg/dL 70-110 H Lab Interpretation (test cod e = 53658-1) Abnormal [facility] GLUCOSE (AUTOMATED)2023-04-19 17:36:13* Test Item Value Reference Range Interpretation Comme nts POCT GLU (test code = 5724157702) 175 mg/dL 70-110 H Lab Interpretation (test cod e = 28964-7) Abnormal [facility] GLUCOSE (AUTOMATED)2023-04-19 14:16:16* Test Item Value Reference Range Interpretation Comme nts POCT GLU (test code = 1147431159) 95 mg/dL 70-110 Lab Interpretation (test cod e = 38190-2) [id number] 12:07:49* Test Item Value Reference Range Interpretation Comme nts TROPONIN I (test code = 3939755436) 1.470 ng/mL <=0.034 H RYANN (test code = RYANN) Reference (Normal) Range (defined by the 99th percentile reference limit): <= 0.034 ng/mL Note: Cardiac troponin begins to rise 3-4 hours after the onset of ischemia. Repeat in 4-6 hours if the sample was drawn within 3-4 hours of the onset of the symptom and found normal. Diagnosis of myocardial injury is made with acute changes in cTn concentrations with at least one serial sample above the 99th percentile upper reference limit (URL), taken together with the patient's clinical presentation. Biotin has been reported to cause a negative bias, interpret results relative to patient's use of biotin. Lab Interpretation (test code = 12416-0) [facility] [id number] 12:05:32* Test Item Value Reference Range Interpretation Comme nts NT-proBNP (test code = 51225-4) 1620 pg/mL <=125 H RYANN (test code = RYANN) Positive: Heart Failure Likely Lab Interpretation (test code = 31772-6) Abnormal [facility] METABOLIC PANEL (NA, K, CL, CO2, GLUCOSE, BUN, CREATININE, CA)2023-04-19 12:02:39* Test Item Value Reference Range Interpretation Comme nts NA (test code = 1321922918) 134 mmol/L 135-145 L K (test code = 4850108722) 3.1 mmol/L 3.5-5.0 L CL (test code = 5985649125) 95 mmol/L 98-108 L CO2 TOTAL (test code = 5038774648) 33 mmol/L 23-31 H AGAP (test code = 5429603464) 6 2-16 BUN (test code = 7196805096) 17 mg/dL 7-23 GLUCOSE (test code = 6221229668) 102 mg/dL 70-110 CREATININE (test code = 9739376797) 0.54 mg/dL 0.60-1.25 L CALCIUM (test code = 9004801943) 8.2 mg/dL 8.6-10.6 L eGFR (test code = 83722-3) 109.2 mL/min/1.73m2 CKD-EPI eGFR (2020). Assuming creatinine has been stable day-to-day for at least three months, the eGFR indicates Category G1 (>= 90 mL/min/1.73 m2) Lab Interpretation (test code = 62609-8) [facility] 11:58:48* Test Item Value Reference Range Interpretation Comme nts MAGNESIUM (test code = 6987946210) 1.8 mg/dL 1.7-2.4 Lab Interpretation (test cod e = 07051-6) Normal [facility] WITH [id number] 10:59:01* Test Item Value Reference Range Interpretation Comme nts WBC (test code = 6690-2) 10.29 See_Comment [Automated [employer]] The system which generated this result transmitted reference range: 4.20 - 10.70 10*3/?L. The reference range was not used to interpret this result as normal/abnormal. RBC (test code = 789-8) 4.45 See_Comment [Automated [employer]] The system which generated this result transmitted reference range: 4.26 - 5.52 10*6/?L. The reference range was not used to interpret this result as normal/abnormal. HGB (test code = 718-7) 12.4 g/dL 12.2-16.4 HCT (test code = 4544-3) 35.4 % 38.4-49.3 L MCV (test code = 787-2) 79.6 fL 81.7-95.6 L MCH (test code = 785-6) 27.9 pg 26.1-32.7 MCHC (test code = 786-4) 35.0 g/dL 31.2-35.0 RDW-SD (test code = 06910-1) 36.2 fL 38.5-51.6 L RDW-CV (test code = 788-0) 12.7 % 12.1-15.4 PLT (test code = 777-3) 239 See_Comment [Automated messa ge] The system which generated this result transmitted reference range: 150 - 328 10*3/?L. The reference range was not used to interpret this result as normal/abnormal. MPV (test code = 09888-8) 9.9 fL 9.8-13.0 NRBC/100 WBC (test code = 9220243243) 0.0 See_Comment [Automated [employer] ssage] The system which generated this result transmitted reference range: 0.0 - 10.0 /100 WBCs. The reference range was not used to interpret this result as normal/abnormal. NRBC x10^3 (test code = 0717569012) See_Comment [Automated [employer]] The system which generated this result transmitted reference range: 10*3/?L. The reference range was not used to interpret this result as normal/abnormal. GRAN MAT (NEUT) % (test code = 770-8) 71.1 % IMM GRAN % (test code = 5549558912) 0.40 % LYMPH % (test code = 736-9) 16.9 % MONO % (test code = 5905-5) 11.2 % EOS % (test code = 713-8) 0.2 % BASO % (test code = 706-2) 0.2 % GRAN MAT x10^3(ANC) (test code = 7087831801) 7.32 10*3/uL 1.99-6.95 H IMM GRAN x10^3 (test code = 5300376458) 0.04 10*3/uL 0.00-0.06 LYMPH x10^3 (test code = 731-0) 1.74 10*3/uL 1.09-3.23 MONO x10^3 (test code = 742-7) 1.15 10*3/uL 0.36-1.02 H EOS x10^3 (test code = 711-2) 0.06-0.53 L BASO x10^3 (test code = 704-7) 0.01-0.09 Lab Interpretation (test code = 75405-2) [id number]13* Test Item Value Reference Range Interpretation Comme nts TROPONIN I (test code = 9615101445) 1.230 ng/mL <=0.034 H RYANN (test code = RYANN) Reference (Normal) Range (defined by the 99th percentile reference limit): <= 0.034 ng/mL Note: Cardiac troponin begins to rise 3-4 hours after the onset of ischemia. Repeat in 4-6 hours if the sample was drawn within 3-4 hours of the onset of the symptom and found normal. Diagnosis of myocardial injury is made with acute changes in cTn concentrations with at least one serial sample above the 99th percentile upper reference limit (URL), taken together with the patient's clinical presentation. Biotin has been reported to cause a negative bias, interpret results relative to patient's use of biotin. Lab Interpretation (test code = 75832-2) [facility]23[facility]19 02:24:40* Test Item Value Reference Range Interpretation Comme nts POCT GLU (test code = 8240987777) 229 mg/dL 70-110 H Lab Interpretation (test cod e = 51227-2) Abnormal [facility] [id number] 00:37:32* Test Item Value Reference Range Interpretation Comme nts FREE T3 (test code = 3813893603) 2.71 pg/mL 2.77-5.27 L Lab Interpretation (test cod e = 26986-9) Abnormal [facility] [id number] 00:37:32* Test Item Value Reference Range Interpretation Comme nts FREE T4 (test code = 5954774890) 1.34 See_Comment [Automated messa ge] The system which generated this result transmitted reference range: 0.78 - 2.20 ng/dL:. The reference range was not used to interpret this result as normal/abnormal. Lab Interpretation (test code = 51846-9) Normal [facility] [id number] 00:32:13* Test Item Value Reference Range Interpretation Comme nts TROPONIN I (test code = 2578182063) 1.210 ng/mL <=0.034 H RYANN (test code = RYANN) Reference (Normal) Range (defined by the 99th percentile reference limit): <= 0.034 ng/mL Note: Cardiac troponin begins to rise 3-4 hours after the onset of ischemia. Repeat in 4-6 hours if the sample was drawn within 3-4 hours of the onset of the symptom and found normal. Diagnosis of myocardial injury is made with acute changes in cTn concentrations with at least one serial sample above the 99th percentile upper reference limit (URL), taken together with the patient's clinical presentation. Biotin has been reported to cause a negative bias, interpret results relative to patient's use of biotin. Lab Interpretation (test code = 28993-1) [facility]2023-04-18 23:37:02* Test Item Value Reference Range Interpretation Comme nts Height (test code = 9455429379) 66 in Weight (test code = 6127926354) 179 lbs Systolic BP (test code = 9301844879) 172 mmHg Diastolic BP (test code = 0111751251) 99 mmHg Heart Rate (test code = 9252096785) 70 bpm BSA (test code = 1968986133) 1.91 m2 Ao root diam (test code = 8450024016) 3.50 cm Aortic root (test code = 0697513869) 3.5 cm Ao root annulus (test code = 6885580250) 3.5 cm LVOT diameter (test code = 1758698642) 1.97 cm LVOT area (test code = 8188366668) 3.00 cm2 LVIDD (test code = 9947992232) 5.40 cm Left Ventricular End Diastolic Volume by Teichholz Method (test code = 0322367) 142.9 mL IVS (test code = 7415383367) 1.09 cm Interventricular Septum Diastolic Thickness by 2D (test code = 6015766) 1.09 cm LVPWD (test code = 6921992494) 1.09 cm PW (test code = 5608137196) 1.09 cm 0.6-1.1 EF(Teich) (test code = 8157559497) 26.70 % LVIDS (test code = 3114162649) 4.70 cm Left Ventricular End Systolic Volume by Teichholz Method (test code = 3184979) 104.7 mL FS (test code = 5685453059) 13 % EF - 2D (test code = 02851358) 26.70 % LA size (test code = 3274534932) 4.8 cm LAV(MOD-sp4) (test code = 5347463444) 84.70 mL E wave decelartion time (test code = 4953231144) 0.18 s MV Peak E Enha (test code = 8378079167) 138.1 cm/s MV stenosis pressure 1/2 time (test code = 1620725167) 57.0 ms MV Peak A Neha (test code = 5077391868) 40.2 cm/s E/A ratio (test code = 7885528858) 3.40 ratio MV Prop V (test code = 0392407020) 30.50 cm/s MV E/e' septal (test code = 0613692446) 9.9 cm/s Tapse (test code = 6409100444) 1.65 cm LVOT stroke volume (test code = 2384758126) 65.40 cm3 LVOT peak neha (test code = 7038614924) 121.9 cm/s LVOT mn grad (test code = 3058491120) 2.7 mmHg AV LVOT peak gradient (test code = 4301615549) 5.9 mmHg LVOT peak VTI (test code = 0268068234) 21.5 cm LV V1 mean (test code = 1094746323) 76.20 cm/s Aortic valve mean velocity (test code = 3830533389) 127.4 cm/s Ao peak neha (test code = 8977279895) 180.0 cm/s Ao VTI (test code = 4915600119) 34.5 cm AV area by cont VTI (test code = 0947156173) 1.9 cm2 AV area peak neha (test code = 4063079939) 2.1 cm2 Ao max PG (test code = 0123725208) 13.00 mm[Hg] AV peak gradient (test code = 3569624412) 13.0 mmHg AV valve area (test code = 4929704484) 1.89 cm2 AV mean gradient (test code = 1307670799) 7.0 mmHg MR max PG (test code = 8879115422) 104.00 mm[Hg] MR max neha (test code = 0410135946) 510.00 cm/s Mr max neha (test code = 7587782828) 510.0 m/s AI max neha (test code = 0022064271) 344.50 cm/s AI max PG (test code = 5711384813) 47.50 mm[Hg] AV regurgitation pressure 1/2 time (test code = 9607272094) 427.3 ms AI dec slope (test code = 0360505068) 236.10 cm/s2 A4C EF (test code = 7809073073) 28.60 % EF(sp4-el) (test code = 0670534187) 31.00 % SV(MOD-sp4) (test code = 2572658486) 39.50 mL SV(sp4-el) (test code = 4922028129) 45.20 mL Radiology Study observation (narrative) (test code = 04202-2) RYANN (test code = RYANN) ?Left?Ventricle: Left ventricle is mildly dilated. Mildly increased wall thickness. There is pseudonormal diastolic dysfunction. ?Right?Ventricle: Right ventricle size is normal. Normal systolic function. ?Aortic?Valve: Moderately thickened cusps. Mildly calcified cusps. No hemodynamically significant . AV mean gradient is 7.0 mmHg. AV peak gradient is 13.0 mmHg. ?Left?Atrium: Left atrium is moderately dilated. Saline contrast shows no shunt. ?Tricuspid?Valve: Tricuspid valve structure is normal. Trace transvalvular regurgitation. Insufficient tricuspid regurgitation jet to estimate RVSP . ?RA pressure is 0-5 mmHg. Left VentricleLeft ventricle is mildly dilated. Mildly increased wall thickness. See diagram for wall motion findings. Moderately reduced systolic function with a visually estimated EF of 35 - 40%. There is pseudonormal diastolic dysfunction.Right VentricleRight ventricle size is normal. Normal systolic function.Left AtriumLeft atrium is moderately dilated. Saline contrast shows no shunt.Right AtriumRight atrium size is normal.Mitral ValveMildly thickened leaflets. Moderate mitral annular calcification. Moderate transvalvular regurgitation.Tricuspi d ValveTricuspid valve structure is normal. Trace transvalvular regurgitation. Insufficient tricuspid regurgitation jet to estimate RVSP . RA pressure is 0-5 mmHg.Aortic ValveModerately thickened cusps. Mildly calcified cusps. Trace transvalvular regurgitation. No hemodynamically significant . AV mean gradient is 7.0 mmHg. AV peak gradient is 13.0 mmHg.Pulmonic ValveNot well visualized. Pulmonic valve is normal in structure and function. Trace transvalvular regurgitation.Ascendin g AortaNormal sized aorta.PericardiumThe pericardium is normal. No pericardial effusion.Study DetailsStudy quality was adequate. A complete echocardiogram was performed using 2D, color flow Doppler and spectral Doppler. 5 mL of Lumason ultrasound enhancing agent used.Wall Scoring BaselineScore Index: 1.41The following segments are hypokinetic: basal anterior, basal anterolateral, mid anterior, mid anterolateral, apical anterior, apical lateral and apex.All other segments are normal. [facility] 22:20:35* Test Item Value Reference Range Interpretation Comme [facility] POCT GLU (test code = 2013680518) 224 mg/dL 70-110 H Lab Interpretation (test cod e = 28458-1) Abnormal [facility] [id number] 18:16:09* Test Item Value Reference Range Interpretation Comme [facility] TROPONIN I (test code = 3866737476) 1.150 ng/mL <=0.034 H RYANN (test code = RYANN) Reference (Normal) Range (defined by the 99th percentile reference limit): <= 0.034 ng/mL Note: Cardiac troponin begins to rise 3-4 hours after the onset of ischemia. Repeat in 4-6 hours if the sample was drawn within 3-4 hours of the onset of the symptom and found normal. Diagnosis of myocardial injury is made with acute changes in cTn concentrations with at least one serial sample above the 99th percentile upper reference limit (URL), taken together with the patient's clinical presentation. Biotin has been reported to cause a negative bias, interpret results relative to patient's use of biotin. Lab Interpretation (test code = 65844-6) Abnormal [facility] GLUCOSE (AUTOMATED)2023-04-18 17:26:41* Test Item Value Reference Range Interpretation Comme nts POCT GLU (test code = 5506079014) 322 mg/dL 70-110 H Lab Interpretation (test cod e = 89361-0) [facility]yroid Stimulating Hormone (TSH)2023-04-18 15:10:31* Test Item Value Reference Range Interpretation Comme nts TSH (test code = 9519952107) 0.34 See_Comment L [Automated messa ge] The system which generated this result transmitted reference range: 0.45 - 4.70 mIU/L. The reference range was not used to interpret this result as normal/abnormal. Lab Interpretation (test code = 71570-3) [facility]normal [facility] [id number] 14:48:48* Test Item Value Reference Range Interpretation Comme [facility] NT-proBNP (test code = 92605-9) 1630 pg/mL <=125 H RYANN (test code = RYANN) Positive: Heart Failure Likely Lab Interpretation (test code = 47631-5) Abnormal [facility] GLUCOSE (AUTOMATED)2023-04-18 14:12:24* Test Item Value Reference Range Interpretation Comme nts POCT GLU (test code = 8020782939) 227 mg/dL 70-110 H Lab Interpretation (test cod e = 40581-9) [facility]normal [facility]rop[facility] [id number] 13:01:04* Test Item Value Reference Range Interpretation Comme nts TROPONIN I (test code = 9127856715) 0.924 ng/mL <=0.034 H RYANN (test code = RYANN) Reference (Normal) Range (defined by the 99th percentile reference limit): <= 0.034 ng/mL Note: Cardiac troponin begins to rise 3-4 hours after the onset of ischemia. Repeat in 4-6 hours if the sample was drawn within 3-4 hours of the onset of the symptom and found normal. Diagnosis of myocardial injury is made with acute changes in cTn concentrations with at least one serial sample above the 99th percentile upper reference limit (URL), taken together with the patient's clinical presentation. Biotin has been reported to cause a negative bias, interpret results relative to patient's use of biotin. Lab Interpretation (test code = 15531-8) [facility]normal [facility] (Total Cholesterol, Triglycerides, HDL)2023-04-18 12:54:44* Test Item Value Reference Range Interpretation Comme nts CHOL (test code = 5851038222) 77 mg/dL 120-200 L HDL (test code = 0330603670) 31 mg/dL >=40 L HDLC RATIO (test code = 6098828297) 2.5 <=5.0 TRIG (test code = 3862174894) 61 mg/dL 30-170 LDL CHOL (test code = 80165-6) 34 mg/dL <=160 VLDL (test code = 8105761289) 12 mg/dL 5-60 Lab Interpretation (test cod e = 87726-6) [facility]normal [facility] (NA, K, CL, CO2, GLUCOSE, BUN, CREATININE, CA)2023-04-18 12:54:03* Test Item Value Reference Range Interpretation Comme nts NA (test code = 1035642364) 133 mmol/L 135-145 L K (test code = 9353728041) 3.8 mmol/L 3.5-5.0 CL (test code = 7224173128) 96 mmol/L 98-108 L CO2 TOTAL (test code = 5028090929) 30 mmol/L 23-31 AGAP (test code = 3539617140) 7 2-16 BUN (test code = 9796508356) 13 mg/dL 7-23 GLUCOSE (test code = 2081276124) 253 mg/dL 70-110 H CREATININE (test code = 4276063194) 0.57 mg/dL 0.60-1.25 L CALCIUM (test code = 2230132188) 8.3 mg/dL 8.6-10.6 L eGFR (test code = 02086-7) 107.5 mL/min/1.73m2 CKD-EPI eGFR (2020). Assuming creatinine has been stable day-to-day for at least three months, the eGFR indicates Category G1 (>= 90 mL/min/1.73 m2) Lab Interpretation (test code = 54133-5) Abnormal [facility] PAN[facility] (41683) (ALB,T.PRO,BILI T,BU/BC,ALT,AST,ALK PHOS)2023-04-18 12:54:03* Test Item Value Reference Range Interpretation Comme nts TOTAL BILI (test code = 8949747215) 0.6 mg/dL 0.1-1.1 BILI UNCON (test code = 8309673672) 0.5 mg/dL 0.1-1.1 BILI CONJ (test code = 1844217070) 0.0 mg/dL 0.0-0.3 T PROTEIN (test code = 5963731737) 6.4 g/dL 6.3-8.2 ALBUMIN (test code = 0688834009) 3.4 g/dL 3.5-5.0 L ALK PHOS (test code = 4944447673) 104 U/L 34-122 ALTv (test code = 1742-6) 19 U/L 5-50 AST(SGOT) (test code = 5490305436) 29 U/L 13-40 Lab Interpretation (test cod e = 43383-5) Abnormal [id number] 11:13:56* Test Item Value Reference Range Interpretation Comme nts WBC (test code = 6690-2) 8.26 See_Comment [Automated [employer]] The system which generated this result transmitted reference range: 4.20 - 10.70 10*3/?L. The reference range was not used to interpret this result as normal/abnormal. RBC (test code = 789-8) 4.60 See_Comment [Automated [employer]] The system which generated this result transmitted reference range: 4.26 - 5.52 10*6/?L. The reference range was not used to interpret this result as normal/abnormal. HGB (test code = 718-7) 12.7 g/dL 12.2-16.4 HCT (test code = 4544-3) 36.8 % 38.4-49.3 L MCV (test code = 787-2) 80.0 fL 81.7-95.6 L MCH (test code = 785-6) 27.6 pg 26.1-32.7 MCHC (test code = 786-4) 34.5 g/dL 31.2-35.0 RDW-SD (test code = 79869-7) 36.0 fL 38.5-51.6 L RDW-CV (test code = 788-0) 12.6 % 12.1-15.4 PLT (test code = 777-3) 225 See_Comment [Automated messa ge] The system which generated this result transmitted reference range: 150 - 328 10*3/?L. The reference range was not used to interpret this result as normal/abnormal. MPV (test code = 38549-9) 10.3 fL 9.8-13.0 NRBC/100 WBC (test code = 2292017610) 0.0 See_Comment [Automated me ssage] The system which generated this result transmitted reference range: 0.0 - 10.0 /100 WBCs. The reference range was not used to interpret this result as normal/abnormal. NRBC x10^3 (test code = 6559589936) See_Comment [Automated messa ge] The system which generated this result transmitted reference range: 10*3/?L. The reference range was not used to interpret this result as normal/abnormal. GRAN MAT (NEUT) % (test code = 770-8) 81.9 % IMM GRAN % (test code = 2302203986) 0.50 % LYMPH % (test code = 736-9) 9.6 % MONO % (test code = 5905-5) 7.9 % EOS % (test code = 713-8) 0.0 % BASO % (test code = 706-2) 0.1 % GRAN MAT x10^3(ANC) (test code = 6360218865) 6.77 10*3/uL 1.99-6.95 IMM GRAN x10^3 (test code = 5995108640) 0.04 10*3/uL 0.00-0.06 LYMPH x10^3 (test code = 731-0) 0.79 10*3/uL 1.09-3.23 L MONO x10^3 (test code = 742-7) 0.65 10*3/uL 0.36-1.02 EOS x10^3 (test code = 711-2) 0.06-0.53 L BASO x10^3 (test code = 704-7) 0.01-0.09 Lab Interpretation (test code = 12979-9) [facility]YCOSYLATED HEMOGLOBIN (A1C)2023-04-18 01:41:02* Test Item Value Reference Range Interpretation Comme [facility] HGB A1C (test code = 4548-4) 8.8 % 4.0-5.7 H RYANN (test code = RYANN) Reference RangesNormal: <5.7%Prediabetes: 5.7 - 6.4%Diabetes: > 6.5% Lab Interpretation (test code = 59075-7) [facility]normal [facility]2023-04-18 01:25:40* Test Item Value Reference Range Interpretation Comme [facility] POCT GLU (test code = 9012663409) 256 mg/dL 70-110 H Lab Interpretation (test cod e = 97452-3) [facility] [id number] 00:14:34* Test Item Value Reference Range Interpretation Comme [facility] TROPONIN I (test code = 0174985895) 0.849 ng/mL <=0.034 H RYANN (test code = RYANN) Reference (Normal) Range (defined by the 99th percentile reference limit): <= 0.034 ng/mL Note: Cardiac troponin begins to rise 3-4 hours after the onset of ischemia. Repeat in 4-6 hours if the sample was drawn within 3-4 hours of the onset of the symptom and found normal. Diagnosis of myocardial injury is made with acute changes in cTn concentrations with at least one serial sample above the 99th percentile upper reference limit (URL), taken together with the patient's clinical presentation. Biotin has been reported to cause a negative bias, interpret results relative to patient's use of biotin. Lab Interpretation (test code = 92882-2) [facility] (NA, K, CL, CO2, GLUCOSE, BUN, CREATININE, CA)2023-04-18 00:02:32* Test Item Value Reference Range Interpretation Comme [facility] NA (test code = 3631440631) 130 mmol/L 135-145 L K (test code = 5383786115) 3.7 mmol/L 3.5-5.0 CL (test code = 8309367345) 95 mmol/L 98-108 L CO2 TOTAL (test code = 0324530647) 27 mmol/L 23-31 AGAP (test code = 6885358029) 8 2-16 BUN (test code = 7417529113) 12 mg/dL 7-23 GLUCOSE (test code = 9817493767) 262 mg/dL 70-110 H CREATININE (test code = 8305118100) 0.52 mg/dL 0.60-1.25 L CALCIUM (test code = 9528286950) 8.3 mg/dL 8.6-10.6 L eGFR (test code = 05555-5) 110.5 mL/min/1.73m2 CKD-EPI eGFR (2020). Assuming creatinine has been stable day-to-day for at least three months, the eGFR indicates Category G1 (>= 90 mL/min/1.73 m2) Lab Interpretation (test code = 06906-7) Abnormal [facility] WITH [id number] 23:41:13* Test Item Value Reference Range Interpretation Comme nts WBC (test code = 6690-2) 9.52 See_Comment [[employer]] The system which generated this result transmitted reference range: 4.20 - 10.70 10*3/?L. The reference range was not used to interpret this result as normal/abnormal. RBC (test code = 789-8) 4.51 See_Comment [[employer]] The system which generated this result transmitted reference range: 4.26 - 5.52 10*6/?L. The reference range was not used to interpret this result as normal/abnormal. HGB (test code = 718-7) 12.6 g/dL 12.2-16.4 HCT (test code = 4544-3) 36.2 % 38.4-49.3 L MCV (test code = 787-2) 80.3 fL 81.7-95.6 L MCH (test code = 785-6) 27.9 pg 26.1-32.7 MCHC (test code = 786-4) 34.8 g/dL 31.2-35.0 RDW-SD (test code = 50331-2) 37.2 fL 38.5-51.6 L RDW-CV (test code = 788-0) 12.9 % 12.1-15.4 PLT (test code = 777-3) 212 See_Comment [Automated messa ge] The system which generated this result transmitted reference range: 150 - 328 10*3/?L. The reference range was not used to interpret this result as normal/abnormal. MPV (test code = 62599-4) 9.9 fL 9.8-13.0 NRBC/100 WBC (test code = 5167304324) 0.0 See_Comment [Automated me ssage] The system which generated this result transmitted reference range: 0.0 - 10.0 /100 WBCs. The reference range was not used to interpret this result as normal/abnormal. NRBC x10^3 (test code = 2353549260) See_Comment [Automated messa ge] The system which generated this result transmitted reference range: 10*3/?L. The reference range was not used to interpret this result as normal/abnormal. GRAN MAT (NEUT) % (test code = 770-8) 88.0 % IMM GRAN % (test code = 5239247408) 0.60 % LYMPH % (test code = 736-9) 6.0 % MONO % (test code = 5905-5) 4.4 % EOS % (test code = 713-8) 0.6 % BASO % (test code = 706-2) 0.4 % GRAN MAT x10^3(ANC) (test code = 9038247684) 8.37 10*3/uL 1.99-6.95 H IMM GRAN x10^3 (test code = 1232786027) 0.06 10*3/uL 0.00-0.06 LYMPH x10^3 (test code = 731-0) 0.57 10*3/uL 1.09-3.23 L MONO x10^3 (test code = 742-7) 0.42 10*3/uL 0.36-1.02 EOS x10^3 (test code = 711-2) 0.06 10*3/uL 0.06-0.53 BASO x10^3 (test code = 704-7) 0.04 10*3/uL 0.01-0.09 Lab Interpretation (test code = 12914-9) [facility] - Code [id number] 18:25:13* Test Item Value Reference Range Interpretation Comme nts TROPONIN I (test code = 8218905577) 0.005 ng/mL <=0.034 RYANN (test code = RYANN) Reference (Normal) Range (defined by the 99th percentile reference limit): <= 0.034 ng/mL Note: Cardiac troponin begins to rise 3-4 hours after the onset of ischemia. Repeat in 4-6 hours if the sample was drawn within 3-4 hours of the onset of the symptom and found normal. Diagnosis of myocardial injury is made with acute changes in cTn concentrations with at least one serial sample above the 99th percentile upper reference limit (URL), taken together with the patient's clinical presentation. Biotin has been reported to cause a negative bias, interpret results relative to patient's use of biotin. Lab Interpretation (test code = 72232-4) Normal [facility] - Code [id number] 18:14:36* Test Item Value Reference Range Interpretation Comme [facility] APTT Patient (test code = 3173-2) 30 See_Comment [Automated message] The system which generated this result transmitted reference range: 23 - 38 Seconds. The reference range was not used to interpret this result as normal/abnormal. RYANN (test code = RYANN) The [facility] patient population mean normal value for aPTT is 30 seconds. Lab Interpretation (test code = 56126-6) Normal [facility] (NA, K, CL, CO2, Glucose, BUN, Creatinine, CA) - Code [id number] 18:13:54* Test Item Value Reference Range Interpretation Comme [facility] NA (test code = 5891789669) 139 mmol/L 135-145 K (test code = 1206330350) 4.2 mmol/L 3.5-5.0 CL (test code = 9460786285) 103 mmol/L 98-108 CO2 TOTAL (test code = 0163622027) 29 mmol/L 23-31 AGAP (test code = 2143484093) 7 2-16 BUN (test code = 3403849599) 15 mg/dL 7-23 GLUCOSE (test code = 9250454103) 182 mg/dL 70-110 H CREATININE (test code = 4496224960) 0.78 mg/dL 0.60-1.25 CALCIUM (test code = 9109961614) 8.9 mg/dL 8.6-10.6 eGFR (test code = 9579789709) 99.6 mL/min/1.73m2 RYANN (test code = RYANN) Association of Glomerular Filtration Rate (GFR) and Staging of Kidney Disease* + --+ --+ ------+| GFR (mL/min/1.73 m2) ?| With Kidney Damage ?| ?Without Kidney Damage+ --------+ --------+ +| ?>90 ?| ?Stage one ?| ? Normal ?+ ---+ ---+ -------+| ?60-89 ?| ?Stage two ?| ? Decreased GFR ? + --+ --+ ------+| ?30-59 ?| ?Stage three ?| ? Stage three ? + --+ --+ ------+| ?15-29 ?| ?Stage four ? | ? Stage four ?+ ---+ ---+ -------+| ?<15 (or dialysis) ? ?| ?Stage five ? | ? Stage five ?+ ---+ ---+ -------+ *Each stage assumes the associated GFR level has been in effect for at least three months. ?Stages 1 to 5, with or without kidney disease, indicate chronic kidney disease. Notes: Determination of stages one and two (with eGFR >59mL/min/1.73 m2) requires estimation of kidney damage for at least three months as defined by structural or functional abnormalities of the kidney, manifested by either:Pathological abnormalities or Markers of kidney damage (including abnormalities in the composition of the blood or urine or abnormalities in imaging tests). Lab Interpretation (test code = 94372-9) [facility]throm[facility] Time / INR - Code [id number] 18:12:32* Test Item Value Reference Range Interpretation Comme rachel MAHER PATIENT (test code = 5964-2) 13.7 See_Comment [Automated [employer]] The system which generated this result transmitted reference range: 12.0 - 14.7 Seconds. The reference range was not used to interpret this result as normal/abnormal. INR (test code = 6301-6) 1.1 Normal INR <1.1; Warfarin Therapeutic range 2.0 to 3.0 or 2.5 to 3.5, depending upon the indications. Lab Interpretation (test code = 68507-9) Normal [facility] without Diff - Code [id number] 18:05:51* Test Item Value Reference Range Interpretation Comme nts WBC (test code = 6690-2) 12.48 See_Comment H [Automated message] The system which generated this result transmitted reference range: 4.20 - 10.70 10*3/?L. The reference range was not used to interpret this result as normal/abnormal. RBC (test code = 789-8) 5.04 See_Comment [Automated message] The system which generated this result transmitted reference range: 4.26 - 5.52 10*6/?L. The reference range was not used to interpret this result as normal/abnormal. HGB (test code = 718-7) 13.9 g/dL 12.2-16.4 HCT (test code = 4544-3) 40.1 % 38.4-49.3 MCH (test code = 785-6) 27.6 pg 26.1-32.7 MCV (test code = 787-2) 79.6 fL 81.7-95.6 L MCHC (test code = 786-4) 34.7 g/dL 31.2-35.0 PLT (test code = 777-3) 291 See_Comment [Automated message] The system which generated this result transmitted reference range: 150 - 328 10*3/?L. The reference range was not used to interpret this result as normal/abnormal. MPV (test code = 85280-4) 10.2 fL 9.8-13.0 RDW-CV (test code = 788-0) 13.1 % 12.1-15.4 RDW-SD (test code = 85584-9) 36.3 fL 38.5-51.6 L NRBC x10^3 (test code = 7863993884) See_Comment [Automated messa ge] The system which generated this result transmitted reference range: 10*3/?L. The reference range was not used to interpret this result as normal/abnormal. NRBC/100 WBC (test code = 5908792417) 0.0 See_Comment [Automated messa ge] The system which generated this result transmitted reference range: 0.0 - 10.0 /100 WBCs. The reference range was not used to interpret this result as normal/abnormal. IPF % (test code = 3007861100) Lab Interpretation (test code = 57948-0) Abnormal [facility] GLUCOSE (AUTOMATED)2022-09-02 17:44:36* Test Item Value Reference Range Interpretation Comme nts POCT GLU (test code = 1325406644) 178 mg/dL 70-110 H Lab Interpretation (test cod e = 30761-7) Abnormal [facility] Glucose (Age >30 Days) - Code Stroke 2022-09-02 17:43:00* Test Item Value Reference Range Interpretation Comme nts POCT Glu (age>30days) (test code = 3342) 178 mg/dL 70-110 A Lab Interpretation (test cod e = 12637-3) Abnormal [facility] GLUCOSE (AUTOMATED)2022-09-01 22:51:57* Test Item Value Reference Range Interpretation Comme nts POCT GLU (test code = 7002787951) 113 mg/dL 70-110 H Lab Interpretation (test cod e = 28611-9) Abnormal [facility] GLUCOSE (AUTOMATED)2022-09-01 17:18:59* Test Item Value Reference Range Interpretation Comme nts POCT GLU (test code = 7689467337) 225 mg/dL 70-110 H Lab Interpretation (test cod e = 75067-2) Abnormal [facility] GLUCOSE (AUTOMATED)2022-09-01 13:19:07* Test Item Value Reference Range Interpretation Comme nts POCT GLU (test code = 7133485403) 130 mg/dL 70-110 H Lab Interpretation (test cod e = 88448-7) [facility] [id number] 09:59:17* Test Item Value Reference Range Interpretation Comme nts [facility] Aspirin Test (test code = 2989956029) 458 See Comment ARU RYANN (test code = RYANN) < 550 ARU - Evidence of platelet dysfunction due to aspirin>= 550 ARU - No evidence of aspirin-induced platelet dysfunction The performance of [employer]Now Aspirin test on patients with acquired non-drug induced platelet abnormalities is not known. Patients who have been treated with Glycoprotein IIb/IIIa inhibitor drugs should not be tested until platelet function has recovered. The recovery period after drug administration is discontinued is approximately 14 days for abciximab (ReoPro) and up to 48 hours for eptifibatide (Integrilin) and tirofiban (Aggrastat). The time to recovery of platelet functions varies among individuals and is longer for patients with renal dysfunction. Patient with low platelet counts may not give consistent results. Results should be interpreted in conjunction with other laboratory and clinical data available to the clinician. [facility] Metabolic Panel (Na, K, Cl, CO2, Glucose, BUN, Creatinine, Ca)2022-09-01 09:56:24* Test Item Value Reference Range Interpretation Comme nts NA (test code = 1473049103) 141 mmol/L 135-145 K (test code = 5194018308) 3.3 mmol/L 3.5-5.0 L CL (test code = 6397271471) 102 mmol/L 98-108 CO2 TOTAL (test code = 0381297105) 32 mmol/L 23-31 H AGAP (test code = 6594005210) 7 2-16 BUN (test code = 3582485721) 11 mg/dL 7-23 GLUCOSE (test code = 0886501484) 124 mg/dL 70-110 H CREATININE (test code = 3188483149) 0.54 mg/dL 0.60-1.25 L CALCIUM (test code = 3313433069) 8.6 mg/dL 8.6-10.6 eGFR (test code = 1826934405) 152.2 mL/min/1.73m2 RYANN (test code = RYANN) Association of Glomerular Filtration Rate (GFR) and Staging of Kidney Disease* + --+ --+ ------+| GFR (mL/min/1.73 m2) ?| With Kidney Damage ?| ?Without Kidney Damage+ --------+ --------+ +| ?>90 ?| ?Stage one ?| ? Normal ?+ ---+ ---+ -------+| ?60-89 ?| ?Stage two ?| ? Decreased GFR ? + --+ --+ ------+| ?30-59 ?| ?Stage three ?| ? Stage three ? + --+ --+ ------+| ?15-29 ?| ?Stage four ? | ? Stage four ?+ ---+ ---+ -------+| ?<15 (or dialysis) ? ?| ?Stage five ? | ? Stage five ?+ ---+ ---+ -------+ *Each stage assumes the associated GFR level has been in effect for at least three months. ?Stages 1 to 5, with or without kidney disease, indicate chronic kidney disease. Notes: Determination of stages one and two (with eGFR >59mL/min/1.73 m2) requires estimation of kidney damage for at least three months as defined by structural or functional abnormalities of the kidney, manifested by either:Pathological abnormalities or Markers of kidney damage (including abnormalities in the composition of the blood or urine or abnormalities in imaging tests). Lab Interpretation (test code = 36439-9) [facility]Magensium, [id number] 09:56:24* Test Item Value Reference Range Interpretation Comme nts MAGNESIUM (test code = 9570921196) 1.7 mg/dL 1.7-2.4 Lab Interpretation (test cod e = 09336-2) Normal [facility] with Gwtmwjjtkevv1110-78-61 09:55:28* Test Item Value Reference Range Interpretation Comme nts WBC (test code = 6690-2) 11.23 See_Comment H [Automated [employer]] The system which generated this result transmitted reference range: 4.20 - 10.70 10*3/?L. The reference range was not used to interpret this result as normal/abnormal. RBC (test code = 789-8) 4.95 See_Comment [Automated [employer]] The system which generated this result transmitted reference range: 4.26 - 5.52 10*6/?L. The reference range was not used to interpret this result as normal/abnormal. HGB (test code = 718-7) 13.7 g/dL 12.2-16.4 HCT (test code = 4544-3) 38.9 % 38.4-49.3 MCV (test code = 787-2) 78.6 fL 81.7-95.6 L MCH (test code = 785-6) 27.7 pg 26.1-32.7 MCHC (test code = 786-4) 35.2 g/dL 31.2-35.0 H RDW-SD (test code = 53220-8) 35.8 fL 38.5-51.6 L RDW-CV (test code = 788-0) 12.8 % 12.1-15.4 PLT (test code = 777-3) 257 See_Comment [Automated messa ge] The system which generated this result transmitted reference range: 150 - 328 10*3/?L. The reference range was not used to interpret this result as normal/abnormal. MPV (test code = 41462-3) 9.9 fL 9.8-13.0 NRBC/100 WBC (test code = 1736954935) 0.0 See_Comment [Automated [employer] ssage] The system which generated this result transmitted reference range: 0.0 - 10.0 /100 WBCs. The reference range was not used to interpret this result as normal/abnormal. NRBC x10^3 (test code = 0988154382) See_Comment [Automated [employer] ge] The system which generated this result transmitted reference range: 10*3/?L. The reference range was not used to interpret this result as normal/abnormal. GRAN MAT (NEUT) % (test code = 770-8) 63.9 % IMM GRAN % (test code = 7011381807) 0.90 % LYMPH % (test code = 736-9) 24.5 % MONO % (test code = 5905-5) 7.4 % EOS % (test code = 713-8) 2.8 % BASO % (test code = 706-2) 0.5 % GRAN MAT x10^3(ANC) (test code = 2252176223) 7.18 10*3/uL 1.99-6.95 H IMM GRAN x10^3 (test code = 7691396865) 0.10 10*3/uL 0.00-0.06 H LYMPH x10^3 (test code = 731-0) 2.75 10*3/uL 1.09-3.23 MONO x10^3 (test code = 742-7) 0.83 10*3/uL 0.36-1.02 EOS x10^3 (test code = 711-2) 0.31 10*3/uL 0.06-0.53 BASO x10^3 (test code = 704-7) 0.06 10*3/uL 0.01-0.09 Lab Interpretation (test code = 49223-5) [facility]throm[facility] Time / [id number] 09:50:48* Test Item Value Reference Range Interpretation Comme [facility] PROTIME PATIENT (test code = 5964-2) 12.4 See_Comment [Automated [employer]] The system which generated this result transmitted reference range: 10.1 - 12.6 Seconds. The reference range was not used to interpret this result as normal/abnormal. INR (test code = 6301-6) 1.1 Normal INR <1.1; Warfarin Therapeutic range 2.0 to 3.0 or 2.5 to 3.5, depending upon the indications. Lab Interpretation (test code = 58806-6) Normal [facility] GLUCOSE (AUTOMATED)2022-09-01 03:17:07* Test Item Value Reference Range Interpretation Comme [facility] POCT GLU (test code = 9465660005) 229 mg/dL 70-110 H Lab Interpretation (test cod e = 55769-8) [facility]YROID STIMULATING [id number] 00:18:23 * Test Item Value Reference Range Interpretation Comme [facility] TSH (test code = 1884975877) 1.17 See_Comment Biotin has been reported to cause a negative bias, interpret results relative to patient's use of biotin. [Automated message] The system which generated this result transmitted reference range: 0.45 - 4.70 mIU/L. The reference range was not used to interpret this result as normal/abnormal. Lab Interpretation (test code = 24157-9) Normal [facility] GLUCOSE (AUTOMATED)2022-08-31 22:30:40* Test Item Value Reference Range Interpretation Comme [facility] POCT GLU (test code = 1154878302) 127 mg/dL 70-110 H Lab Interpretation (test cod e = 13029-8) [facility] SouthFasting Lipd Panel (11845)(TOTAL CHOLESTEROL, TRIGLYCERIDES, HDL)2022-08-31 21:41:12* Test Item Value Reference Range Interpretation Comme [facility] CHOL (test code = 7442727743) 91 mg/dL 120-200 L HDL (test code = 7185492897) 31 mg/dL >=40 L HDLC RATIO (test code = 6603398547) 2.9 <=5.0 TRIG (test code = 7163583428) 130 mg/dL 30-170 LDL CHOL (test code = 61599-5) 34 mg/dL <=160 VLDL (test code = 2736694485) 26 mg/dL 5-60 Lab Interpretation (test cod e = 34784-1) [facility] South[facility]roponin I - Code [id number] 15:56:21* Test Item Value Reference Range Interpretation Comme nts TROPONIN I (test code = 6868412722) 0.005 ng/mL <=0.034 RYANN (test code = RYANN) Reference (Normal) Range (defined by the 99th percentile reference limit): <= 0.034 ng/mL Note: Cardiac troponin begins to rise 3-4 hours after the onset of ischemia. Repeat in 4-6 hours if the sample was drawn within 3-4 hours of the onset of the symptom and found normal. Diagnosis of myocardial injury is made with acute changes in cTn concentrations with at least one serial sample above the 99th percentile upper reference limit (URL), taken together with the patient's clinical presentation. Biotin has been reported to cause a negative bias, interpret results relative to patient's use of biotin. Lab Interpretation (test code = 56476-3) [facility]aP[facility] - Code [id number] 15:45:36* Test Item Value Reference Range Interpretation Comme nts APTT Patient (test code = 3173-2) 28 See_Comment [Automated message] The system which generated this result transmitted reference range: 23 - 38 Seconds. The reference range was not used to interpret this result as normal/abnormal. RYANN (test code = RYANN) The [facility] patient population mean normal value for aPTT is 30 seconds. Lab Interpretation (test code = 70324-1) [facility] Metabolic Panel (NA, K, CL, CO2, Glucose, BUN, Creatinine, CA) - Code [id number] 15:44:56* Test Item Value Reference Range Interpretation Comme nts NA (test code = 2970162253) 140 mmol/L 135-145 K (test code = 2417554244) 4.3 mmol/L 3.5-5.0 CL (test code = 1607733799) 104 mmol/L 98-108 CO2 TOTAL (test code = 7003463824) 31 mmol/L 23-31 AGAP (test code = 8357809725) 5 2-16 BUN (test code = 0156372637) 17 mg/dL 7-23 GLUCOSE (test code = 9635183241) 203 mg/dL 70-110 H CREATININE (test code = 1767904055) 0.65 mg/dL 0.60-1.25 CALCIUM (test code = 1838298957) 9.0 mg/dL 8.6-10.6 eGFR (test code = 2316685359) 122.9 mL/min/1.73m2 RYANN (test code = RYANN) Association of Glomerular Filtration Rate (GFR) and Staging of Kidney Disease* + --+ --+ ------+| GFR (mL/min/1.73 m2) ?| With Kidney Damage ?| ?Without Kidney Damage+ --------+ --------+ +| ?>90 ?| ?Stage one ?| ? Normal ?+ ---+ ---+ -------+| ?60-89 ?| ?Stage two ?| ? Decreased GFR ? + --+ --+ ------+| ?30-59 ?| ?Stage three ?| ? Stage three ? + --+ --+ ------+| ?15-29 ?| ?Stage four ? | ? Stage four ?+ ---+ ---+ -------+| ?<15 (or dialysis) ? ?| ?Stage five ? | ? Stage five ?+ ---+ ---+ -------+ *Each stage assumes the associated GFR level has been in effect for at least three months. ?Stages 1 to 5, with or without kidney disease, indicate chronic kidney disease. Notes: Determination of stages one and two (with eGFR >59mL/min/1.73 m2) requires estimation of kidney damage for at least three months as defined by structural or functional abnormalities of the kidney, manifested by either:Pathological abnormalities or Markers of kidney damage (including abnormalities in the composition of the blood or urine or abnormalities in imaging tests). Lab Interpretation (test code = 05813-4) [facility]thrombin Time / INR - Code [id number] 15:43:37* Test Item Value Reference Range Interpretation Gus MAHER PATIENT (test code = 5964-2) 13.3 See_Comment [Automated messa ge] The system which generated this result transmitted reference range: 12.0 - 14.7 Seconds. The reference range was not used to interpret this result as normal/abnormal. INR (test code = 6301-6) 1.0 Normal INR <1.1; Warfarin Therapeutic range 2.0 to 3.0 or 2.5 to 3.5, depending upon the indications. Lab Interpretation (test code = 29109-6) Normal [facility] without Diff - Code [id number] 15:35:35* Test Item Value Reference Range Interpretation Comme nts WBC (test code = 6690-2) 13.63 See_Comment H [Automated message] The system which generated this result transmitted reference range: 4.20 - 10.70 10*3/?L. The reference range was not used to interpret this result as normal/abnormal. RBC (test code = 789-8) 4.82 See_Comment [Automated message] The system which generated this result transmitted reference range: 4.26 - 5.52 10*6/?L. The reference range was not used to interpret this result as normal/abnormal. HGB (test code = 718-7) 13.2 g/dL 12.2-16.4 HCT (test code = 4544-3) 38.6 % 38.4-49.3 MCH (test code = 785-6) 27.4 pg 26.1-32.7 MCV (test code = 787-2) 80.1 fL 81.7-95.6 L MCHC (test code = 786-4) 34.2 g/dL 31.2-35.0 PLT (test code = 777-3) 283 See_Comment [Automated message] The system which generated this result transmitted reference range: 150 - 328 10*3/?L. The reference range was not used to interpret this result as normal/abnormal. MPV (test code = 12178-3) 10.0 fL 9.8-13.0 RDW-CV (test code = 788-0) 12.7 % 12.1-15.4 RDW-SD (test code = 15359-4) 35.9 fL 38.5-51.6 L NRBC x10^3 (test code = 2011592190) See_Comment [Automated messa ge] The system which generated this result transmitted reference range: 10*3/?L. The reference range was not used to interpret this result as normal/abnormal. NRBC/100 WBC (test code = 8077098311) 0.0 See_Comment [Automated messa ge] The system which generated this result transmitted reference range: 0.0 - 10.0 /100 WBCs. The reference range was not used to interpret this result as normal/abnormal. IPF % (test code = 5674061619) Lab Interpretation (test code = 44909-7) Abnormal [facility] GLUCOSE (AUTOMATED)2022-08-31 15:32:25* Test Item Value Reference Range Interpretation Comme nts POCT GLU (test code = 9059008162) 202 mg/dL 70-110 H Lab Interpretation (test cod e = 77565-3) Abnormal [facility] GLUCOSE (AUTOMATED)2022-07-21 16:50:20* Test Item Value Reference Range Interpretation Comme nts POCT GLU (test code = 0363114003) 158 mg/dL 70-110 H Lab Interpretation (test cod e = 48185-8) Abnormal [facility] GLUCOSE (AUTOMATED)2022-07-21 13:02:43* Test Item Value Reference Range Interpretation Comme nts POCT GLU (test code = 9343580461) 83 mg/dL 70-110 Lab Interpretation (test cod e = 54067-5) Normal [facility] GLUCOSE (AUTOMATED)2022-07-21 01:35:42* Test Item Value Reference Range Interpretation Comme nts POCT GLU (test code = 9761759724) 184 mg/dL 70-110 H Lab Interpretation (test cod e = 42624-6) Abnormal [facility] GLUCOSE (AUTOMATED)2022-07-20 22:30:02* Test Item Value Reference Range Interpretation Comme nts POCT GLU (test code = 1643760634) 98 mg/dL 70-110 Lab Interpretation (test cod e = 32257-2) [facility]A1C)2022-07-20 19:28:58* Test Item Value Reference Range Interpretation Comme nts HGB A1C (test code = 4548-4) 8.6 % 4.0-5.7 H RYANN (test code = RYANN) Reference RangesNormal: <5.7%Prediabetes: 5.7 - 6.4%Diabetes: > 6.5% Lab Interpretation (test code = 87579-4) Abnormal [facility] LIPID PANEL (70016)(TOTAL CHOLESTEROL, TRIGLYCERIDES, HDL)2022-07-20 19:04:49* Test Item Value Reference Range Interpretation Comme nts CHOL (test code = 3965828160) 157 mg/dL 120-200 HDL (test code = 9947159974) 42 mg/dL >=40 HDLC RATIO (test code = 7822652258) 3.7 <=5.0 TRIG (test code = 9538103653) 165 mg/dL 30-170 LDL CHOL (test code = 33365-1) 82 mg/dL <=160 VLDL (test code = 2150628849) 33 mg/dL 5-60 Lab Interpretation (test cod e = 62795-5) [facility] [id number] 13:30:44* Test Item Value Reference Range Interpretation Comme nts TROPONIN I (test code = 6376678259) 0.008 ng/mL <=0.034 RYANN (test code = RYANN) Reference (Normal) Range (defined by the 99th percentile reference limit): <= 0.034 ng/mL Note: Cardiac troponin begins to rise 3-4 hours after the onset of ischemia. Repeat in 4-6 hours if the sample was drawn within 3-4 hours of the onset of the symptom and found normal. Diagnosis of myocardial injury is made with acute changes in cTn concentrations with at least one serial sample above the 99th percentile upper reference limit (URL), taken together with the patient's clinical presentation. Biotin has been reported to cause a negative bias, interpret results relative to patient's use of biotin. Lab Interpretation (test code = 02688-7) Normal [facility]. METABOLIC PANEL (79125)2022-07-20 13:19:00* Test Item Value Reference Range Interpretation Comme nts NA (test code = 4817571828) 137 mmol/L 135-145 K (test code = 8849613558) 4.3 mmol/L 3.5-5.0 CL (test code = 8158406895) 98 mmol/L 98-108 CO2 TOTAL (test code = 2447559892) 30 mmol/L 23-31 AGAP (test code = 1200816004) 9 2-16 BUN (test code = 7281440948) 15 mg/dL 7-23 GLUCOSE (test code = 9829253229) 177 mg/dL 70-110 H CREATININE (test code = 5035230679) 0.66 mg/dL 0.60-1.25 TOTAL BILI (test code = 3215576943) 0.9 mg/dL 0.1-1.1 CALCIUM (test code = 9686645343) 9.2 mg/dL 8.6-10.6 T PROTEIN (test code = 2154335944) 6.9 g/dL 6.3-8.2 ALBUMIN (test code = 5165712849) 4.0 g/dL 3.5-5.0 ALK PHOS (test code = 9179830838) 75 U/L 34-122 ALTv (test code = 1742-6) 18 U/L 5-50 AST(SGOT) (test code = 7777537063) 25 U/L 13-40 eGFR (test code = 3157425248) 120.8 mL/min/1.73m2 RYANN (test code = RYANN) Association of Glomerular Filtration Rate (GFR) and Staging of Kidney Disease* + --+ --+ ------+| GFR (mL/min/1.73 m2) ?| With Kidney Damage ?| ?Without Kidney Damage+ --------+ --------+ +| ?>90 ?| ?Stage one ?| ? Normal ?+ ---+ ---+ -------+| ?60-89 ?| ?Stage two ?| ? Decreased GFR ? + --+ --+ ------+| ?30-59 ?| ?Stage three ?| ? Stage three ? + --+ --+ ------+| ?15-29 ?| ?Stage four ? | ? Stage four ?+ ---+ ---+ -------+| ?<15 (or dialysis) ? ?| ?Stage five ? | ? Stage five ?+ ---+ ---+ -------+ *Each stage assumes the associated GFR level has been in effect for at least three months. ?Stages 1 to 5, with or without kidney disease, indicate chronic kidney disease. Notes: Determination of stages one and two (with eGFR >59mL/min/1.73 m2) requires estimation of kidney damage for at least three months as defined by structural or functional abnormalities of the kidney, manifested by either:Pathological abnormalities or Markers of kidney damage (including abnormalities in the composition of the blood or urine or abnormalities in imaging tests). Lab Interpretation (test code = 99245-9) Abnormal [facility] THRMPLAS [id number] 13:14:41* Test Item Value Reference Range Interpretation Comme nts APTT Patient (test code = 3173-2) 27 See_Comment [Automated message] The system which generated this result transmitted reference range: 23 - 38 Seconds. The reference range was not used to interpret this result as normal/abnormal. RYANN (test code = RYANN) The [facility] patient population mean normal value for aPTT is 30 seconds. Lab Interpretation (test code = 01301-5) Normal [facility] SouthProthrombin Time / [id number] 13:12:44* Test Item Value Reference Range Interpretation Comme nts PROTIME PATIENT (test code = 5964-2) 13.3 See_Comment [Automated [employer]] The system which generated this result transmitted reference range: 12.0 - 14.7 Seconds. The reference range was not used to interpret this result as normal/abnormal. INR (test code = 6301-6) 1.0 Normal INR <1.1; Warfarin Therapeutic range 2.0 to 3.0 or 2.5 to 3.5, depending upon the indications. Lab Interpretation (test code = 89344-6) Normal [facility] WITH [id number] 13:03:42* Test Item Value Reference Range Interpretation Comme nts WBC (test code = 6690-2) 12.19 See_Comment H [Automated [employer]] The system which generated this result transmitted reference range: 4.20 - 10.70 10*3/?L. The reference range was not used to interpret this result as normal/abnormal. RBC (test code = 789-8) 5.26 See_Comment [Automated [employer]] The system which generated this result transmitted reference range: 4.26 - 5.52 10*6/?L. The reference range was not used to interpret this result as normal/abnormal. HGB (test code = 718-7) 14.5 g/dL 12.2-16.4 HCT (test code = 4544-3) 42.2 % 38.4-49.3 MCV (test code = 787-2) 80.2 fL 81.7-95.6 L MCH (test code = 785-6) 27.6 pg 26.1-32.7 MCHC (test code = 786-4) 34.4 g/dL 31.2-35.0 RDW-SD (test code = 74216-4) 36.2 fL 38.5-51.6 L RDW-CV (test code = 788-0) 12.5 % 12.1-15.4 PLT (test code = 777-3) 249 See_Comment [Automated messa ge] The system which generated this result transmitted reference range: 150 - 328 10*3/?L. The reference range was not used to interpret this result as normal/abnormal. MPV (test code = 72829-8) 10.1 fL 9.8-13.0 NRBC/100 WBC (test code = 9388480837) 0.0 See_Comment [Automated [employer] ssage] The system which generated this result transmitted reference range: 0.0 - 10.0 /100 WBCs. The reference range was not used to interpret this result as normal/abnormal. NRBC x10^3 (test code = 6522067432) See_Comment [Automated messa ge] The system which generated this result transmitted reference range: 10*3/?L. The reference range was not used to interpret this result as normal/abnormal. GRAN MAT (NEUT) % (test code = 770-8) 66.8 % IMM GRAN % (test code = 6777240868) 0.90 % LYMPH % (test code = 736-9) 19.9 % MONO % (test code = 5905-5) 8.0 % EOS % (test code = 713-8) 3.9 % BASO % (test code = 706-2) 0.5 % GRAN MAT x10^3(ANC) (test code = 1070227899) 8.16 10*3/uL 1.99-6.95 H IMM GRAN x10^3 (test code = 2950437663) 0.11 10*3/uL 0.00-0.06 H LYMPH x10^3 (test code = 731-0) 2.42 10*3/uL 1.09-3.23 MONO x10^3 (test code = 742-7) 0.97 10*3/uL 0.36-1.02 EOS x10^3 (test code = 711-2) 0.47 10*3/uL 0.06-0.53 BASO x10^3 (test code = 704-7) 0.06 10*3/uL 0.01-0.09 Lab Interpretation (test code = 92267-1) Abnormal [facility] Consult Notes Date/Time Note Provider Source 2023-09-18 08:42:09 Associated Order(s): CONSULT CARDIOLOGY [facility] Cardiology Consult Note Patient: Luis Guzmán Date of : 1955 Date of service: 09/18/2023 Primary Care Physician: Cristo Schwartz CHIEF COMPLAINT: Chief Complaint Patient presents with Hypertension Shortness of Breath HISTORY OF PRESENT ILLNESS: Luis Guzmán is a 67 year old male presented to the ER for evaluation for PETERS. History from patient. Patient seen and examined in the room. Pertinent cardiac related history reviewed from chart Presented to ER with shortness of breath. Patient's blood pressure has been significantly elevated as he is not really remembering to take his medications as prescribed. He is also had a lot of stress recently. PETERS NYHA class II-III noted. No chest pain at rest. No PND or orthopnea. No pedal edema. No exertional palpitations or palpitations at rest. No syncopal attacks. Patient had a one-vessel coronary artery bypass grafting in April. 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 History of DVT (deep vein thrombosis) Hyperlipidemia Hypertension Stroke Past Surgical History: Procedure Laterality Date CORONARY ARTERY BYPASS GRAFT one vessel IR EMBOLIZATION CENTRAL NERVOUS SYSTEM (GAS MAIN AND LINE FITTER) PERMANENT embolization dural AVF PACEMAKER INSERTION Family History Problem Relation Age of Onset Hypertension Mother High cholesterol Mother High cholesterol Father Hypertension Father SOCIAL HISTORY Social History Socioeconomic History Marital status: Spouse name: ROSE GUZMÁN Number of children: 4 Highest education level: 6th grade Occupational History 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: [employer] Tobacco Use Smoking status: Never Passive exposure: Never Smokeless tobacco: Never Social Determinants of Health Financial Resource Strain: Low Risk (04/18/2023) Overall Financial Resource Strain (CARDIA) Difficulty of Paying Living Expenses: Not hard at all Food Insecurity: No Food Insecurity (04/18/2023) Hunger Vital Sign Worried About Running Out of Food in the Last Year: Never true Ran Out of Food in the Last Year: Never true Transportation Needs: No Transportation Needs (04/18/2023) PRAPARE - Transportation Lack of Transportation (Medical): No Lack of Transportation (Non-Medical): No Physical Activity: Sufficiently Active (04/18/2023) Exercise Vital Sign Days of Exercise per Week: 5 days Minutes of Exercise per Session: 60 min Social Connections: Unknown (04/18/2023) Social Connection and Isolation Panel [NHANES] Frequency of Communication with Friends and Family: More than three times a week Marital Status: Housing Stability: Low Risk (04/18/2023) Housing Stability Vital Sign Unable to Pay for Housing in the Last Year: No Number of Places Lived in the Last Year: 1 Unstable Housing in the Last Year: No ALLERGIES No Known Allergies MEDICATIONS Current Discharge Medication List STOP taking these medications aspirin (ASPIR-81 ORAL) Comments: Reason for Stopping: carvediloL 25 mg tablet Comments: Reason for Stopping: insulin degludec (TRESIBA FLEXTOUCH U-100 SC) Comments: Reason for Stopping: atorvastatin 40 mg tablet Comments: Reason for Stopping: clopidogreL 75 mg tablet Comments: Reason for Stopping: finasteride 5 mg tablet Comments: Reason for Stopping: insulin lispro 100 unit/mL pen injector Comments: Reason for Stopping: tamsulosin 0.4 mg 24 hr capsule Comments: Reason for Stopping: metFORMIN 1,000 mg tablet Comments: Reason for Stopping: benzonatate 100 mg capsule Comments: Reason for Stopping: ondansetron 4 mg disintegrating tablet Comments: Reason for Stopping: acetaminophen-codeine 300-30 mg tablet Comments: Reason for Stopping: irbesartan-hydrochlorothiazide 300-12.5 mg per tablet Comments: Reason for Stopping: citalopram 20 mg tablet Comments: Reason for Stopping: Current Facility-Administered Medications: aspirin EC tablet 81 mg, 81 mg, Oral, DAILY, Raman Patel MD atorvastatin (LIPITOR) tablet 40 mg, 40 mg, Oral, QHS, Raman Patel MD benzonatate (TESSALON PERLES) capsule 100 mg, 100 mg, Oral, TIDPRN, Raman Patel MD carvediloL (COREG) tablet 25 mg, 25 mg, Oral, BID MEALS, Raman Patel MD citalopram (CELEXA) tablet 20 mg, 20 mg, Oral, DAILY, Raman Patel MD clopidogreL (PLAVIX) 75 mg tablet 75 mg, 75 mg, Oral, DAILY, Raman Patel MD enoxaparin (LOVENOX) injection 80 mg, 1 mg/kg, Subcutaneous, Q12H, Raman Patel MD finasteride (PROSCAR) tablet 5 mg, 5 mg, Oral, DAILY, Raman Patel MD insulin glargine (LANTUS U-100) injection 30 Units, 30 Units, Subcutaneous, Q, Raman Patel MD insulin lispro (human) (HumaLOG U-100) injection 5 Units, 5 Units, Subcutaneous, TIDAC, Raman Patel MD [START ON 09/19/2023] metFORMIN (GLUCOPHAGE) tablet 500 mg, 500 mg, Oral, BID MEALS, Raman Patel MD ondansetron (ZOFRAN-ODT) disintegrating tablet 4 mg, 4 mg, Oral, Q4HPRN, Raman Patel MD tamsulosin (FLOMAX) capsule 0.4 mg, 0.4 mg, Oral, DAILY, Raman Patel MD acetaminophen (TYLENOL) tablet 650 mg, 650 mg, Oral, Q6HPRN, Luz Fuentes MD, 650 mg at 09/17/231957 amLODIPine (NORVASC) tablet 10 mg, 10 mg, Oral, DAILY, Luz Fuentes MD, 10 mg at 09/17/231958 dextrose 50 % in water (D50W) injection 25 mL, 25 mL, Slow IV Push, PRN, Luz Fuentes MD furosemide (LASIX) injection 40 mg, 40 mg, Slow IV Push, Q12H, Luz Fuentes MD glucagon (GLUCAGEN DIAGNOSTIC KIT) injection 1 mg, 1 mg, Intramuscular, PRN, Luz Fuentes MD hydralAZINE (APRESOLINE) injection 10 mg, 10 mg, Slow IV Push, Q4HPRN, Luz Fuentes MD losartan (COZAAR) tablet 50 mg, 50 mg, Oral, BID, Luz Fuentes MD, 50 mg at 09/17/23 1959 spironolactone (ALDACTONE) tablet 25 mg, 25 mg, Oral, DAILY, Luz Fuentes MD, 25 mg at 09/17/23 1527 REVIEW OF SYSTEMS: Comprehensive 10-system review was conducted and were negative except for what's noted in the HPI. The following systems were reviewed: Constitutional, cardiovascular, respiratory, gastrointestinal, genitourinary, musculoskeletal, neurologic, psychiatric, endocrinological, and hematological. PHYSICAL EXAMINATION: Vitals: 09/17/23201409/17/23 2345 09/18/23 0339 09/18/23 0758 BP: (!) 164/85 135/70 (!) 154/74 Pulse: 59 64 60 60 Resp: 18 16 Temp: 36.5 ?C (97.7 ?F) 36.2 ?C (97.2 ?F) 36.1 ?C (96.9 ?F) TempSrc: SpO2: 96% 94% 93% 93% Weight: 167 lb 8 oz (76 kg) Height: General: no apparent distress HEENT: normocephalic atraumatic Neck: supple, no lymphadenopathy, no bruits, no JVD Lungs: clear to auscultation bilaterally. No wheezes or rhonchi. No increased work of breathing. Cardio: Regular rate and rhythm, S1&S2 normal, no murmurs, rubs or gallops Abdomen: soft; non-tender; non-distended; normoactive bowel sounds. : not examined Rectal: not examined Extremities: no clubbing, cyanosis, or edema. Skin: no rashes, no visible lesions. Neuro: no gross focal deficits LABS - Reviewed pertinent labs as below: CBC BMP PT/INR WBC (10*3/?L) Date Value 09/18/2023 10.64 NA (mmol/L) Date Value 09/18/2023 135 No results found for: "PT" PLT (10*3/?L) Date Value 09/18/2023 292 K (mmol/L) Date Value 09/18/2023 3.9 INR (no units) Date Value 09/02/2022 1.1 HGB (g/dL) Date Value 09/18/2023 11.8 (L) BUN (mg/dL) Date Value 09/18/2023 12 HCT (%) Date Value 09/18/2023 36.1 (L) CREATININE (mg/dL) Date Value 09/18/2023 0.60 LIPID PROFILE GLUCOSE (mg/dL) Date Value 09/18/2023 187 (H) CHOL (mg/dL) Date Value 09/18/2023 77 (L) TSH LDL CHOL (mg/dL) Date Value 09/18/2023 24 TSH (mIU/L) Date Value 09/17/2023 0.89 CARDIAC ENZYMES HDL (mg/dL) Date Value 09/18/2023 35 (L) No results found for: "CK" TRIG (mg/dL) Date Value 09/18/2023 92 LFTs No results found for: "CKMB" AST(SGOT) (U/L) Date Value 09/17/2023 23 TROPONIN I (ng/mL) Date Value 09/17/2023 0.053 (H) ALT(SGPT) (U/L) Date Value 06/09/2017 26 ALTv (U/L) Date Value 09/17/2023 30 No results found for: "BNP" LDL CHOL (mg/dL) Date Value 09/18/2023 24 Recent Labs 09/17/23 1053 TROPNI 0.053* Recent Labs 09/18/23 0336 TRIG 92 LDL CHOL (mg/dL) Date Value 09/18/2023 24 NT-proBNP (pg/mL) Date Value 09/18/2023 2,560 (H) 04/18/2021 84 ASSESSMENT/PLAN Principal Problem: Acute on chronic congestive heart failure, unspecified heart failure type Active Problems: Hypertension Hyperlipidemia Diabetes mellitus Left pontine stroke Troponin I above reference range Acute on chronic systolic and diastolic heart failure, NYHA class 3 Coronary artery disease involving coronary bypass graft of [place] heart with angina pectoris Troponin elevation: Type II ND in the setting of underlying uncontrolled hypertension. Serial troponins have been stable. Echocardiogram dated 09/18/2023 images reviewed shows preserved LV systolic function. No significant valve abnormalities noted. EKG shows no dynamic ST-T changes. Telemetry reviewed. No significant arrhythmias noted. Recommended aggressive blood pressure control. Echocardiogram dated 04/18/2023 images reviewed showed reduced ejection fraction at 35 to 40% with regional wall motion abnormality. Continue aspirin and Plavix. Continue Coreg 25 twice daily, Lipitor 40 daily. Recent Labs 05/14/23 1209 09/17/23 1053 TROPNI 0.096* 0.053* Recent Labs 09/17/23 1053 09/18/23 0336 TROPNI 0.053* 0.046* Acute on chronic systolic and diastolic heart failure: Improving EF noted. Continue with IV Lasix 40 twice daily. Recommended repeat NT-proBNP in a.m. tomorrow. Continue telemetry monitoring. Telemetry reviewed. No significant change noted. Echocardiogram dated 04/18/2023 images reviewed showed reduced ejection fraction at 35 to 40% with regional wall motion abnormality. Echocardiogram dated 04/18/2023 images reviewed showed reduced ejection fraction at 35 to 40% with regional wall motion abnormality. Recommended low salt diet. I/O. Daily weight. Fluid restriction. Keep K > 4 and Mg > 2. Continue Coreg 25 twice daily, losartan 50 twice daily and spironolactone 25 daily. Consider to initiate Jardiance/Farxiga as an outpatient. NT-proBNP (pg/mL) Date Value 09/18/2023 2,560 (H) 04/18/2021 84 CAD status post CABG 04/2023 Continue Coreg 25 twice daily, losartan 50 twice daily and spironolactone 25 daily. Consider to initiate Jardiance/Farxiga as an outpatient. Continue aspirin and Plavix. Hypertension: Uncontrolled. Improving blood pressure noted. Recommended to be compliant with home blood pressure monitoring and medication compliance. Continue Coreg 25 twice daily, losartan 50 twice daily, amlodipine 10 mg daily and spironolactone 25 daily. History of stroke: Continue Plavix and Lipitor. Hyperlipidemia: goal LDL less than 55-70. Continue Lipitor 40 mg daily. LDL at goal. LDL CHOL (mg/dL) Date Value 09/18/2023 24 T2DM: Rx/workup as per primary team. Last Two A1C Results ([facility], [facility], [facility]) Recent Labs 04/17/23 1724 09/17/23 1056 HGBA1C 8.8* 8.0* Primary cardiology Dr. Cruz. My diagnostic impression and treatment plans were discussed at length with the patient. All side effects as well as drug-drug interactions and risks discussed at length. Ample opportunity was offered and encouraged to ask questions during this visit and patient appreciated the answers given by me and verbzalised statisfcation in the answers given. Thank you for allowing us to participate in the care of Luis Guzmán. If you have any questions or concerns please feel free to call our office at [phone]. I would be happy to be of further assistance for Luis Guzmán wellbeing. Voice recognition software has been used to create portions of this document. An attempt to proofread has been made to minimize errors. Please do not hesitate to call with any questions. Trever Howard MD News Camera Person, Division of Cardiology [facility] - Health History and Physical Notes Date/Time Note Provider Source 2023-09-17 22:23:17 [facility] Hospitalist Admission H&P Date of Service: 09/17/2023 CHIEF COMPLAINT: Shortness of breath; hypertensive urgency with flash pulmonary edema HISTORY OF PRESENT ILLNESS Luis Guzmán is a 67 year old male who presents with shortness of breath. Patient's blood pressure has been significantly elevated as he is not really remembering to take his medications as prescribed. He is also had a lot of stress recently. He has worked at [employer] for 40 years, and he has been contemplating retiring. He has had some stress at work and at home. He has not been remembering to take his blood pressure medication as scheduled. Patient had a one-vessel coronary artery bypass grafting in April. Since that time he has been try to take better care of himself. However, he still forgets to take some of his medications as scheduled. In the ER patient was found to have a blood pressure of 190/90. Patient had a CT angio which was negative for pulmonary embolism, but patient had bilateral pleural effusions along with possibly pulmonary hypertension. Patient also had a CT of the abdomen pelvis which did not reveal any abdominal abnormality. There was a questionable iliofemoral DVT that has been diagnosed in the past. Patient was given antihypertensives and patient's blood pressure has improved. Patient was also diuresed in the emergency room. Patient is feeling much better and patient will be admitted to the hospital for further evaluation. 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 History of DVT (deep vein thrombosis) Hyperlipidemia Hypertension Stroke PAST SURGICAL HISTORY Past Surgical History: Procedure Laterality Date CORONARY ARTERY BYPASS GRAFT one vessel IR EMBOLIZATION CENTRAL NERVOUS SYSTEM (GAS MAIN AND LINE FITTER) PERMANENT embolization dural AVF PACEMAKER INSERTION ALLERGIES No Known Allergies MEDICATIONS Current home medication list reviewed: Current Discharge Medication List STOP taking these medications aspirin (ASPIR-81 ORAL) Comments: Reason for Stopping: carvediloL 25 mg tablet Comments: Reason for Stopping: insulin degludec (TRESIBA FLEXTOUCH U-100 SC) Comments: Reason for Stopping: atorvastatin 40 mg tablet Comments: Reason for Stopping: clopidogreL 75 mg tablet Comments: Reason for Stopping: finasteride 5 mg tablet Comments: Reason for Stopping: insulin lispro 100 unit/mL pen injector Comments: Reason for Stopping: tamsulosin 0.4 mg 24 hr capsule Comments: Reason for Stopping: metFORMIN 1,000 mg tablet Comments: Reason for Stopping: benzonatate 100 mg capsule Comments: Reason for Stopping: ondansetron 4 mg disintegrating tablet Comments: Reason for Stopping: acetaminophen-codeine 300-30 mg tablet Comments: Reason for Stopping: irbesartan-hydrochlorothiazid e 300-12.5 mg per tablet Comments: Reason for Stopping: citalopram 20 mg tablet Comments: Reason for Stopping: FAMILY HISTORY Family History Problem Relation Age of Onset Hypertension Mother High cholesterol Mother High cholesterol Father Hypertension Father SOCIAL HISTORY Social History Socioeconomic History Marital status: Spouse name: ROSE GUZMÁN Number of children: 4 Highest education level: 6th grade Occupational History 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: [employer] Tobacco Use Smoking status: Never Passive exposure: Never Smokeless tobacco: Never Social Determinants of Health Financial Resource Strain: Low Risk (04/18/2023) Overall Financial Resource Strain (CARDIA) Difficulty of Paying Living Expenses: Not hard at all Food Insecurity: No Food Insecurity (04/18/2023) Hunger Vital Sign Worried About Running Out of Food in the Last Year: Never true Ran Out of Food in the Last Year: Never true Transportation Needs: No Transportation Needs (04/18/2023) PRAPARE - Transportation Lack of Transportation (Medical): No Lack of Transportation (Non-Medical): No Physical Activity: Sufficiently Active (04/18/2023) Exercise Vital Sign Days of Exercise per Week: 5 days Minutes of Exercise per Session: 60 min Social Connections: Unknown (04/18/2023) Social Connection and Isolation Panel [NHANES] Frequency of Communication with Friends and Family: More than three times a week Marital Status: Housing Stability: Low Risk (04/18/2023) Housing Stability Vital Sign Unable to Pay for Housing in the Last Year: No Number of Places Lived in the Last Year: 1 Unstable Housing in the Last Year: No REVIEW OF SYSTEMS 10 systems negative except per HPI PHYSICAL EXAMINATION BP (!) 174/91 | Pulse 59 | Temp 36.1 ?C (96.9 ?F) | Resp 21 | Ht 1.702 m (5' 7") | Wt 76.5 kg (168 lb 9.6 oz) | SpO2 96% | BMI 26.41 kg/m? General: No acute distress HEENT: Normal oral mucosa, anicteric sclerae, NCAT Cardiovascular: RRR Lungs: Basilar crackles Abdomen: Soft, NTND Musculoskeletal: No synovitis, normal muscle mass Genitourinary: Normal Skin: No rash, no skin lesions Extremities: No clubbing, no cyanosis, no lower extremity edema Neuro: AAOx3, no focal deficits Psych: Normal affect LABS - reviewed pertinent labs as below: CBC BMP PT/INR WBC (10*3/?L) Date Value 09/17/2023 10.27 NA (mmol/L) Date Value 09/17/2023 135 No results found for: "PT" RBC (10*6/?L) Date Value 09/17/2023 4.51 K (mmol/L) Date Value 09/17/2023 4.4 INR (no units) Date Value 09/02/2022 1.1 PLT (10*3/?L) Date Value 09/17/2023 298 CALCIUM (mg/dL) Date Value 09/17/2023 8.7 HGB (g/dL) Date Value 09/17/2023 11.6 (L) CL (mmol/L) Date Value 09/17/2023 102 aPTT HCT (%) Date Value 09/17/2023 36.5 (L) BUN (mg/dL) Date Value 09/17/2023 11 APTT Patient (Seconds) Date Value 09/02/2022 30 CREATININE (mg/dL) Date Value 09/17/2023 0.59 (L) IMAGING - reviewed, pertinent results as below: Hospital Encounter on 09/17/23 CT CHEST PULMONARY ANGIOGRAM Narrative PROCEDURE: CT CHEST WITH CONTRAST- CHEST PE PROTOCOL CLINICAL INDICATION: Pulmonary embolism (PE) suspected, positive D-dimer Comparison: Prior CT chest 04/17/2023 TECHNIQUE: TECHNIQUE: Volumetric helical CT angiogram was performed of the chest (lung apices to bases) with IV contrast. Images were reconstructed including 1.25 and 2.5 mm axial images. Sagittal,coronal MPR images and axial MIP images were performed. FINDINGS: Devices: None HEART AND GREAT VESSELS: The opacification of the pulmonary vasculature is appropriate. No filling defects are seen through the level of the segmental pulmonary arteries. The pulmonary trunk measures 3.7 cm. The thoracic aorta is normal in caliber with Mild atherosclerotic calcifications. Coronary stents are seen. The heart is enlarged. No pericardial abnormalities are identified. The RV to LV is normal. LUNGS AND PLEURA: The lungs are adequately expanded. Small bilateral pleural effusions with adjacent atelectasis. LYMPH NODES: Scattered small lymph nodes in both sides of the mediastinum and hilar regions. No evidence of intrathoracic lymphadenopathy. MEDIASTINUM AND LOWER NECK: No central airway lesions are detected.. Small hiatal hernia. The included thyroid gland appears normal. VISUALIZED UPPER ABDOMEN: The included solid organs and hollow viscus appear within normal limits. OSSEOUS STRUCTURES AND SOFT TISSUES: Chronic fracture deformities of the posterior right lower ribs. The soft tissues appear normal. Impression 1. No evidence of acute or chronic pulmonary embolism through the level of the subsegmental branches. AIDOC (computer-aided detection software) was negative for any filling defects. 2. Small bilateral pleural effusions. 3. Dilated pulmonary trunk which is nonspecific but may be seen in setting of pulmonary hypertension. Preliminary Report Dictated by Resident: Denver Whyte I, Talib Engel MD., have reviewed this study and agree with the above report. CT ABDOMEN PELVIS WO CONTRAST Narrative ORDERING PROVIDER: EMILIA CHAVEZ HISTORY: Flank pain, kidney stone suspected TECHNIQUE: CT acquisition of the abdomen and pelvis without contrast. This examination was performed according to ALARA principles. COMPARISON(S): CT chest angiogram 04/17/2023 FINDINGS: Motion artifact mildly limits assessment. LOWER CHEST: Completely imaged cardiac electrodes in the right atrium and right ventricle, as well as a subcutaneous lead, not connected to a device, which appears to extend into the right ventricular cavity. Moderate/severe mitral annular calcification. Mild/moderate aortic valvular calcification. At least moderate coronary artery calcifications. Hiatal hernia. Improved small, right larger than left, low attenuation pleural effusions with decreased posterior dependent consolidations favoring improving atelectasis. ABDOMEN/PELVIS: Liver: Normal. Gallbladder/biliary: Suspect layering gallbladder sludge. No CT evidence of inflammation. No biliary ductal dilation. Pancreas: Normal. Spleen: Normal. Adrenal glands: Normal. Kidneys and ureters: Normal. Bladder: Normal. Reproductive organs: Penile tunical calcifications. Stomach/bowel: Mild colonic stool volume. No obstruction. Appendix: Normal. Lymph nodes: No lymphadenopathy. Peritoneum: No intraperitoneal free air. No intraperitoneal free fluid. Vessels: Calcification in the left common femoral vein and diminished caliber external iliac vein. Extensive pelvic subcutaneous varices. Severe calcific plaque. MUSCULOSKELETAL: Abdominal wall: No large hernia or soft tissue mass. Ventral abdominal subcutaneous fat stranding and skin thickening, probably related to medicine administration. Bones: No acute osseous abnormality. Impression 1. No urinary stones or acute abdominal/pelvic abnormality. 2. Improving pleural effusions and lung basilar atelectasis. 3. New cardiac electrodes/lead, one of which is intracavitary at the right ventricle and appears to extend into the subcutaneous tissues and is not connected to a device. Recommend clinical correlation. 4. 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 HS: Y End of Report SSMENT: 1. Acute CHF exacerbation/heart failure with preserved ejection fraction 2. Uncontrolled hypertension/hypertensive urgency with flash pulmonary edema 3. History of CAD status post CABG-1 vessel in April 4. History of DVT 5. History of CVA 6. Type 2 diabetes 7. History of pacemaker placement PLAN: 1. Acute CHF exacerbation continue with diuresing and strict blood pressure control. Patient with hypertensive urgency with flash pulmonary edema; patient was diuresed and patient's blood pressure is better controlled. Will get cardiology consultation along with echocardiogram. Discussed with patient about the importance of taking his blood pressure medications to prevent respiratory distress. 2. History of CAD status post CABG; continue with statin therapy and antiplatelet therapy 3. History of DVT; continue with Lovenox; may need to discuss with team regarding long-term anticoagulation. 4. Type 2 diabetes; continue with strict blood sugar control 5. History of pacemaker placement; monitor on telemetry 6. GI DVT prophylaxis DVT prophylaxis: enoxaparin Stress ulcer prophylaxis: pantoprazole Code status: FULL Advanced Care Planning (Z71.89) Above assessment and plan discussed at length with patient, patient expressed full understanding. Questions and concerned addressed. Surrogate decision maker: NO Level of care expected after discharge: HOME Time spent: 3 minutes discussing the advanced care plan Smoking Cessation: (Z71.6) Tobacco user?: NO Patient will require inpatient stay of 2 midnights or more given high risk of morbidity and mortality. [place] [employer] was verified during stay Raman Patel MD IM-INTERNAL MEDICINE STAFF [facility] - Health Notes Date/Time Note Provider Source 2023-09-20 12:11:22 Images from the original note were not included. TRANSITIONAL CARE MANAGEMENT ASSESSMENT 09/20/2023 Luis Guzmán [id number] Luis Guzmán is a 67 year old /White male was admitted on 09/17/23 to [facility]. He was discharged on 09/19/23 with discharge disposition of HR- Routine Discharge. Admitting Physician: Luz Fuentes Discharge Diagnosis: Acute on chronic combined systolic and diastolic HF No linked episodes TCM [id number] outreach documentation: Discharge Assessment Chart Assessed: 09/20/23 TCM Outreach Completed: 09/20/23 Do you have a few minutes to speak with me about how you are doing at home?: Yes (Patient stated that he is doing good) Discharge Instructions Do you understand your at-home instructions?: Yes Medications Have you filled your prescriptions and do you have them in your home? : Yes Do you know how to take your medications?: Yes Supplies Did you receive applicable home medical supplies/equipment?: N/A Follow Up Appointment Has a follow up appointment been scheduled?: Yes (Patient has external pcp and will follow up) Do you have any questions about your follow up appointments?: No Are you able to get to your appointment? Who will be taking you?: Yes (spouse) Home Health Assistance Has the home health nurse contacted you since you've been home?: N/A Survey - Recognition Is there anything you would like to share about your recent hospitalization, or anyone you would like to recognize?: No Do you have any suggestions for improvement?: No Do you have any other questions or concerns at this time?: No Future Appointments: Future Appointments Provider Department Dept Phone 10/14/2023 11:20 AM Nahid [facility] [phone] Do you have any questions about your diagnosis? No Review reason for hospitalization and diagnosis: Acute on chronic combined systolic and diastolic HF Are you having any worsening symptoms? No Do you know what symptoms to watch for, and when to call your doctor? Yes CM reviewed s/s of worsening heart failure Please give the patient contact numbers for our HF clinic or Discharging MD (Document contact information provided): Patient will be following up with Dr. Wakefield. Patient stated he has office number Do you understand your discharge instructions? Yes Can you explain your Fluid restrictions? Yes Example: 1.5L total fluid/24 hr-Specify patient's restriction: less than 2lper day Assess patient's understanding of what happens if they do not follow this restriction: * Sudden weight gain (more than 3 pounds in 1 day or 5 pounds in 1 week) * Trouble breathing at night, especially when you lie down (waking up short of breath, needing more pillows to breathe) * New or increased swelling of your legs, feet, ankles or abdomen (belly) * Shortness of breath at rest * Frequent coughing that doesn't go away * Feeling much more tired than usual, with simple activity * Irregular or rapid heartbeat * Weakness or lightheadedness Emphasize importance of adherence: Yes Can you explain your low sodium restriction? Yes Example: 2gm/day-Specify patient's restriction:less than 2000 mg per day Assess patient's understanding of what happens if they do not follow this restriction: * Sudden weight gain (more than 3 pounds in 1 day or 5 pounds in 1 week) * Trouble breathing at night, especially when you lie down (waking up short of breath, needing more pillows to breathe) * New or increased swelling of your legs, feet, ankles or abdomen (belly) * Shortness of breath at rest * Frequent coughing that doesn't go away * Feeling much more tired than usual, with simple activity * Irregular or rapid heartbeat * Weakness or lightheadedness Emphasize importance of adherence: Yes Are you engaged in physical activity? 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 Yes Do you understand how to take your medications?Yes Stress importance of taking all medications as prescribed and address any questions: yes Has HF follow up appointment been scheduled? With Dr Wakefield May I assist with scheduling this appointment? No Do you have any questions about your follow up appointments? No Stress importance of attending this appointment. Yes If for some reason appointment with HF Clinic is not within 7 days, please notify Nurse Program Coordinators and document outcome: na Do you have transportation to your follow up appointments? Yes Has the home health nurse contacted you since you've been home? N/A Ensure they have contact info for company: na Have you received your DME? N/A Do you have a scale? Yes Educate on daily weights, dry weight, weight log and what to do if they gain weight? Let your healthcare provider know if your weight goes up by more than 3 pounds in 1 day or 5 pounds in 1 week. This is a sign that you are retaining more fluid than you should be, which could lead to worsening heart failure. Do you have a BP/HR machine? Yes Educate on keeping a log: yes CM reviewed HF action plan and zone checks Zuly Lomax RN [facility] 2023-09-19 11:30:00 Discharge instructions reviewed with pt. Discussed medications and follow up appts. No questions or concerns voiced at this time. Sharifa Novoa RN [facility] 2023-09-18 22:05:12 Problem: Fluid Volume - Imbalanced Goal: Absence of imbalanced fluid volume signs and symptoms Outcome: Progressing as expected Problem: Pain Goal: Control of pain at or below patient's documented comfort goal Outcome: Progressing as expected Goal: Reduction in pain sensation Outcome: Progressing as expected Problem: Falls, Risk of Goal: Absence of falls Outcome: Progressing as expected Problem: Discharge Planning Goal: Adequate for discharge Outcome: Progressing as expected Goal: Effective communication Outcome: Progressing as expected Problem: Glucose control Goal: Glucose level within specified parameters Outcome: Progressing as expected Alanna Goyal RN [facility] 2023-09-18 12:59:54 Problem: Fluid Volume - Imbalanced Goal: Absence of imbalanced fluid volume signs and symptoms Outcome: Progressing as expected Problem: Pain Goal: Control of pain at or below patient's documented comfort goal Outcome: Progressing as expected Goal: Reduction in pain sensation Outcome: Progressing as expected Problem: Falls, Risk of Goal: Absence of falls Outcome: Progressing as expected Problem: Discharge Planning Goal: Adequate for discharge Outcome: Progressing as expected Goal: Effective communication Outcome: Progressing as expected Problem: Glucose control Goal: Glucose level within specified parameters Outcome: Progressing as expected [facility] 2023-09-17 22:51:19 Problem: Fluid Volume - Imbalanced Goal: Absence of imbalanced fluid volume signs and symptoms Outcome: Progressing as expected Problem: Pain Goal: Control of pain at or below patient's documented comfort goal Outcome: Progressing as expected Goal: Reduction in pain sensation Outcome: Progressing as expected Problem: Falls, Risk of Goal: Absence of falls Outcome: Progressing as expected Problem: Discharge Planning Goal: Adequate for discharge Outcome: Progressing as expected Goal: Effective communication Outcome: Progressing as expected Problem: Glucose control Goal: Glucose level within specified parameters Outcome: Progressing as expected [facility] 2023-09-17 15:53:02 Nurse Report Report given to SOLIS Lim. Chief complaint, assessment findings, and orders reviewed. Plan of care discussed with both nurses. Vicky Mayfield RN Vicky Mayfield RN [facility] 2023-09-17 10:09:08 Patient to ED for hypertension. Reports at home his bp was 179/91 after taking bp meds and he was concerned. Also reports he has been short of breath for the past 2 nights. No distress at this time. Also was treated for uti 1 week ago. He has bilateral flank pain and has frequent urination but no pain. Daisha Green RN [facility] 2023-09-17 09:57:00 Associated Order(s): EKG-12 Lead ROUTINE ONCE Pre-Procedure Diagnose(s): SOB (shortness of breath) Post-Procedure Diagnose(s): SOB (shortness of breath) [facility] Emergency Department Note Patient Name: Luis Guzmán Date of : 1955 67 year old male Treatment Room: 8/[facility] Primary Care Physician: Cristo Schwartz Patient Escorted by: Family [5] Mode of Arrival: Personal means [1] EMS Treatment Prior to ED Arrival: Travel and Exposure Screening: Symptoms Does patient have any of these symptoms?: (not recorded) Exposure Screening Has patient had contact with someone with a communicable disease in the last month?: (not recorded) Diseases exposed to:: (not recorded) Is Patient ?: (not recorded) Exposure Date: (not recorded) Chief Complaint: Chief Complaint Patient presents with Hypertension Shortness of Breath History of Present Illness: Luis Guzmán is a 67 year old male who present to the ED with elevated blood pressure, SOB x 2 days, recent UTI treatment with recurrence of urinary frequency and bilateral flank pain. He rated his pain a 3 on a scale of 0 to 10 and described it as sharp. He was found sitting in the ED exam room. He appears well, not toxic and does not seem to be in any apparent distress at this time. Patient denies any chest, abdomen or neck pains, dizziness, headache, fever, chills, cough, sore throat, dysphagia, dysuria, hematuria, hemoptysis, nausea, vomiting or diarrhea. 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 Passive Exposure: Never Past Surgical History: Past Surgical History: Procedure Laterality Date CORONARY ARTERY BYPASS GRAFT one vessel IR EMBOLIZATION CENTRAL NERVOUS SYSTEM (GAS MAIN AND LINE FITTER) PERMANENT embolization dural AVF PACEMAKER INSERTION Review of Systems: Review of Systems Constitutional: Negative. HENT: Negative. Eyes: Negative. Respiratory: Positive for shortness of breath. Negative for apnea, cough, choking, chest tightness, wheezing and stridor. Cardiovascular: Negative. Gastrointestinal: Negative. Genitourinary: Positive for frequency and flank pain. Negative for bladder incontinence, dysuria, urgency, hematuria, decreased urine volume, discharge, penile swelling, scrotal swelling, enuresis, difficulty urinating, genital sores, penile pain, testicular pain and nocturia. Skin: Negative. Neurological: Negative. Endocrine: Endocrine negative Physical Exam: ED Triage Vitals [09/17/23 1010] Weight 77.1 kg (170 lb) Actual or estimated Height 1.702 m (5' 7") BP (!) 167/78 Pulse 60 Resp 18 Temp 36.9 ?C (98.4 ?F) Temp src SpO2 99 % Measured on Physical Exam Vitals and nursing note reviewed. Constitutional: General: He is not in acute distress. Appearance: Normal appearance. He is normal weight. He is not ill-appearing, toxic-appearing or diaphoretic. HENT: Head: Normocephalic. Right Ear: External ear normal. Left Ear: External ear normal. Nose: Nose normal. Mouth/Throat: Mouth: Mucous membranes are moist. Eyes: General: No scleral icterus. Right eye: No discharge. Left eye: No discharge. Conjunctiva/sclera: Conjunctivae normal. Cardiovascular: Rate and Rhythm: Normal rate. Pulses: Normal pulses. Heart sounds: Normal heart sounds. No murmur heard. No friction rub. No gallop. Pulmonary: Effort: Pulmonary effort is normal. No respiratory distress. Breath sounds: Normal breath sounds. No stridor. No wheezing, rhonchi or rales. Chest: Chest wall: No tenderness. Abdominal: General: Bowel sounds are normal. There is no distension. Palpations: There is no mass. Tenderness: There is no abdominal tenderness. There is right CVA tenderness and left CVA tenderness. There is no guarding or rebound. Hernia: No hernia is present. Musculoskeletal: General: No swelling, tenderness, deformity or signs of injury. Normal range of motion. Right lower le+ Pitting Edema present. Left lower le+ Pitting Edema present. Skin: General: Skin is warm and dry. Capillary Refill: Capillary refill takes less than 2 seconds. Coloration: Skin is not jaundiced or pale. Findings: No bruising, erythema, lesion or rash. Neurological: Mental Status: He is alert. Radiology: No orders to display Lab Results: Lab Results - No data to display EKG: If EKG completed, see Procedure Note. Orders and Treatments: Orders Placed This Encounter Procedures COMP. METABOLIC PANEL (31179) N-TERMINAL PRO-BNP D-DIMER TROPONIN I URINALYSIS No orders of the defined types were placed in this encounter. First Provider Eval: ED Events Date/Time Event User Comments 09/17/23 1009 Medical Screening Begins EIMLIA CHAVEZ NP -- 09/17/23 1009 First Provider Evaluation EMILIA CHAVEZ NP -- ED COURSE Labs, ECG ED Course as of 09/17/23 1244 Sat September 17, 2023 1243 TROPONIN I(!): 0.053 [JA] 1243 NT-proBNP(!): 2,820 [JA] 1242 IMPRESSION 1. No evidence of acute or chronic pulmonary embolism through the level of the subsegmental branches. AIDOC (computer-aided detection software) was negative for any filling defects. 2. Small bilateral pleural effusions. 3. Dilated pulmonary trunk which is nonspecific but may be seen in setting of pulmonary hypertension. Preliminary Report Dictated by Resident: Denver Whyte I, Talib Engel MD., have reviewed this study and agree with the above report. [JA] 1242 NT-proBNP(!): 2,820 [JA] 1242 TROPONIN I(!): 0.053 [JA] 1145 D DIMER(!): 0.84 [JA] ED Course User Index [JA] Emilia Chavez NP Diagnosis/Impression as of 09/17/23 1244 SOB (shortness of breath) Bilateral flank pain Elevated d-dimer Acute on chronic congestive heart failure, unspecified heart failure type Elevated troponin Procedures: EKG-12 Lead ROUTINE ONCE Date/Time: 09/17/2023 10:18 AM Performed by: Emilia Chavez NP Authorized by: Emilia Chavez NP ECG interpreted by ED Physician in the absence of a rv mechanic: yes Previous ECG: Previous ECG: Compared to current Similarity: Changes noted Comparison ECG info: NSR then Atrial paced now Interpretation: Interpretation: abnormal Rate: ECG rate: 60 ECG rate assessment: normal Rhythm: Rhythm: paced Pacing: Capture: Complete Ectopy: Ectopy: none QRS: QRS axis: Normal QRS intervals: Normal QRS conduction: RBBB ST segments: ST segments: Normal T waves: T waves: normal MDM: Luis Guzmán is a 67 year old male who present to the ED with elevated blood pressure, SOB x 2 days, recent UTI treatment with recurrence of urinary frequency and bilateral flank pain. He rated his pain a 3 on a scale of 0 to 10 and described it as sharp. DDX: ACS CARDIAC ARRHYTHMIAS PULMONARY EDEMA CHF EXACERBATION COPD PLEURAL EFFUSION PNEUMOTHORAX PE BRONCHITIS PNEUMONIA VIRAL SYNDROME LUNG MALIGNANCY UTI PYELONEPHRITIS HYPERTENSIVE URGENCY / EMERGENCY Medical Decision Making Luis Guzmán is a 67 year old male who present to the ED with elevated blood pressure, SOB x 2 days, recent UTI treatment with recurrence of urinary frequency and bilateral flank pain. He rated his pain a 3 on a scale of 0 to 10 and described it as sharp. Problems Addressed: Acute on chronic congestive heart failure, unspecified heart failure type: acute illness or injury Bilateral flank pain: acute illness or injury Elevated d-dimer: acute illness or injury Elevated troponin: acute illness or injury SOB (shortness of breath): acute illness or injury Amount and/or Complexity of Data Reviewed Labs: ordered. Decision-making details documented in ED Course. Radiology: ordered. Decision-making details documented in ED Course. ECG/medicine tests: ordered. Decision-making details documented in ED Course. Risk Prescription drug management. Risk Details: Patient with CHF exacerbation. There is a possibility of worsening symptoms or negative outcomes for patient without further care and evaluation beyond ED. Patient is going to benefit from hospital stay, plan discussed with patient and he verbalized understanding and agrees. Flowsheet Documentation: Scoring Tools: No data recorded Disposition/Condition: ED Disposition None Discharge Medications: Patient's Medications START taking these medications No medications on file CONTINUE taking these medications which have NOT CHANGED ACETAMINOPHEN-CODEINE 300-30 MG TABLET Take 1 tablet by mouth every 4 (four) hours as needed for Pain (scale 4-6). Indications: acute pain ATORVASTATIN 40 MG TABLET Take 1 tablet by mouth at bedtime. BENZONATATE 100 MG CAPSULE Take 1 capsule by mouth 3 (three) times daily as needed for Cough. CITALOPRAM 20 MG TABLET CLOPIDOGREL 75 MG TABLET Take 1 tablet by mouth in the morning. FINASTERIDE 5 MG TABLET INSULIN DEGLUDEC (TRESIBA FLEXTOUCH U-100 SC) inject 36 Units under the skin at bedtime. INSULIN LISPRO 100 UNIT/ML PEN INJECTOR 5 Units SEE-INSTRUCTIONS. 5U in AM, 5U noon, 5U prior to dinner IRBESARTAN-HYDROCHLOROTHIAZIDE 300-12.5 MG PER TABLET METFORMIN 1,000 MG TABLET Take 1 tablet by mouth in the morning and 1 tablet in the evening. Take with meals. ONDANSETRON 4 MG DISINTEGRATING TABLET Take 1 tablet by mouth every 4 (four) hours as needed for Nausea and Vomiting (N/V). TAMSULOSIN 0.4 MG 24 HR CAPSULE START taking Modified Medications as Prescribed No medications on file STOP taking these medications No medications on file Follow-up: Electronically signed by: Emilia Chavez NP 09/17/23 [id number] Associated attestation - Mora Mcginnis MD - 09/18/2023 7:40 AM CDT Addendum I was personally available for consultation in the Emergency Department during this encounter and patient evaluation by Garrett KELLEY [facility] 2023-09-17 09:57:00 AdmissionCare Guideline: Heart Failure - OBS, Observation Based on the indications selected for the patient, the bed status of Observation was determined to be MET The following indications were selected as present at the time of evaluation of the patient: - Dyspnea AdmissionCare documentation entered by: Emilia Chavez [facility] [employer], 27 edition, Copyright ? 2022 [facility] [employer] [facility] All Rights Reserved. [id number] [facility] 2023-09-06 19:22:32 PT D/C home. GCS15, VS stable. Given D/C paperwork. Pt ambulatory at time of discharge. Pt educated on med usage, follow up care, s/s worsening condition, need for hydration. Pt verbalized understanding. Pt ambulated from ED with significant other in NAD Eli Woodward RN [facility] 2023-09-06 17:10:02 CC: patient presents to the ER with complaints of blood in urine that began two days ago with associated burning. 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 Appears in no distress. Vicky Mayfield RN [facility] 2023-05-19 12:06:00 [facility] ([facility]) Progress Note REPORT #: [id number] REPORT STATUS: Signed DATE: 05/19/23 TIME: 1206 PATIENT: LUIS GUZMÁN UNIT #: [id number] ROOM #: P.0403 BED: A : 55 AGE: 67 SEX: M ATTEND: Rajesh Kilgore MD ADM AUTHOR: Nadiya Bergman MD ATTE NTION *EDITS and/or ADDENDA must be made in Patient Keeper for this note. * * Edits and ammendments created in [employer] are not visible * * in Patient Keeper or the legal medical record ([facility]). * -- ASSESSMENT AND PLAN -- GENERAL ASSESSMENT: # 67-year-old gentleman with extensive past medical history, now s/p CABG on 05/03 # Presents with atypical diplopia, on 05/14 # Found to have left occipital infiltrative process on CT head, alongside with opacification of the left basal vein of Max # History of "mini strokes" in the past Hypertension Diabetes #Afib, anticoagulation is indicated from neurological standpoint, will defer to cardiology, if started on anticoagulation, may discontinue antiplatelets. Would probably be safe to start on 05/22, about a week since stoke onset. Updated pt on that and we discussed the risks of hemorrhagic conversion. ## Updated the patient and his family on the results of MRI brain, revealing large subacute left temporal and occipital stroke, explaining his symptoms, likely related to his multiple vascular risk factors listed above. He is already established with [facility], with both Drs. Romo and Darío, and was in fact scheduled to obtain cerebral angiography this week, asked him to follow-up with them as soon as he is discharged for further recommendations. Continue aspirin and statin at this point, also on clopidogrel per cardiology Discussed with primary team Cardiology on board LDL 36 A1c 8.2, needs better glycemic control. Normal blood pressure parameters at this point Thank you for allowing us to participate in the care of your patient. Please do not hesitate to call Neurology with any further questions or changes in neurological status. -- SUBJECTIVE -- CHIEF COMPLAINT: Diplopia, brain mass HPI: No acute events overnight. s/p PPM placement -- OBJECTIVE -- VITALS (05/18 12:06 - 05/19 12:06): Temperature C: 36.8 (36.7 - 36.8) Pulse Rate 60 (60 - 65) Respiratory rate: 17 (12 - 25) Blood pressure: 135/62 (105/55 - 155/76) Blood pressure source: Monitor I/Os (05/18 07:00 - 05/19 07:00): Net -225.00 Intake 600.00 Output 825 -EXAM- NEUROLOGICAL: Mental status: The patient is awake, alert and oriented x3. Fluent, no dysarthria. Cranial nerves: Extraocular movements are intact, pupils are round and reactive to light, visual mcmanus with right homonymous hemianopsia. Facial sensation is intact in all 3 divisions of the trigeminal bilaterally. Right facial droop. Tongue, uvula, and palate are midline. Diplopia is present when both eyes are open, or when only right eye is open. Worse when looking to the right direction. Motor examination: No drift. Strength is 5/5 in all extremities proximally and distally. Sensory examination is intact to light touch bilaterally. No dysmetria on [id number]. Reflexes are symmetric throughout. Right Babinski Gait is narrow based. -- DATA -- MEDICATIONS INSULIN GLARGINE 30 UNITS SUBQ BEDTIME DEXTROSE 50%-WATER 25 ML IV ASDIR PRN INSULIN LISPRO 5 UNITS SUBQ AC FERROUS SULFATE 325 MG PO BID LACTULOSE 30 ML PO BID PRN METOPROLOL TARTRATE 5 MG IV Q6H PRN carvediloL 25 MG PO Q12HR clopidogreL 75 MG PO DAILY FUROSEMIDE 20 MG PO QAM DOCUSATE SODIUM 100 MG PO BID ONDANSETRON HCL/PF 4 MG IV Q6H PRN AMIODARONE HCL 200 MG PO DAILY LOSARTAN POTASSIUM 25 MG PO DAILY GLUCAGON 1 MG IM ASDIR PRN FINASTERIDE 5 MG PO BEDTIME INSULIN LISPRO 0 UNITS SUBQ C MEALS HS ONDANSETRON 4 MG PO Q6H PRN ASPIRIN 81 MG PO DAILY ACETAMINOPHEN 650 MG PO Q4H PRN cloNIDine HCL 0.1 MG PO Q8H PRN NITROGLYCERIN 0.4 MG SL Q5M PRN IOPAMIDOL 76% 100 ML IV ONCE (PRN) SPIRONOLACTONE 25 MG PO DAILY TAMSULOSIN 0.4 MG PO DAILY ATORVASTATIN CALCIUM 40 MG PO BEDTIME LABS GLU BED (05/19/23 07:37) GLUBED 98 Signed in PatientKeeper by Nadiya Bergman MD on 05/19/23 at 12:15 at 1215 ATTE NTION *EDITS and/or ADDENDA must be made in Patient Keeper for this note. * * Edits and ammendments created in [facility] are not visible * * in Patient Keeper or the legal medical record ([facility]). * RPT #: [id number] END OF REPORT [facility] 2023-05-19 10:39:00 [facility] ([facility]) Med Order Sheet REPORT #: [id number] REPORT STATUS: Signed DATE: 05/19/23 TIME: 1039 PATIENT: LUIS GUZMÁN UNIT #: [id number] ROOM #: P.0403 BED: A : 55 AGE: 67 SEX: M ATTEND: Rajesh Kilgore MD ADM AUTHOR: Rajesh Kilgore MD ATTE NTION *EDITS and/or ADDENDA must be made in Patient Keeper for this note. * * Edits and ammendments created in [facility] are not visible * * in Patient Keeper or the legal medical record ([facility]). * Discharge Medication Reconciliation Hosp: Minocycline Hcl cap (minocycline) Dose: 100 MG PO BID, Disp: 10 capsule, Refills: 0 at 1039 ATTE NTION *EDITS and/or ADDENDA must be made in Patient Keeper for this note. * * Edits and ammendments created in [facility] are not visible * * in Patient Keeper or the legal medical record ([facility]). * [facility] #: [id number] END OF REPORT [facility] 2023-05-19 10:38:00 [facility] ([facility]) Med Order Sheet REPORT #: [id number] REPORT STATUS: Signed DATE: 05/19/23 TIME: 1038 PATIENT: LUIS GUZMÁN UNIT #: [id number] ROOM #: P.0403 BED: A : 55 AGE: 67 SEX: M ATTEND: Rajesh Kilgoer MD ADM AUTHOR: Rajesh Kilgore MD ATTE NTION *EDITS and/or ADDENDA must be made in Patient Keeper for this note. * * Edits and ammendments created in [facility] are not visible * * in Patient Keeper or the legal medical record ([facility]). * Discharge Medication Reconciliation DISCHARGE MEDICATION LIST Amiodarone Tab (Cordarone Tab) Dose: 200 MG PO daily aspirin chewable tablet Dose: 81 MG PO DAILY Atorvastatin Tab (Lipitor Tab) Dose: 80 MG PO BEDTIME Carvedilol Tab (Coreg Tab) Dose: 25 MG PO BID MEALS Clopidogrel Tab (Plavix Tab) Dose: 75 MG PO DAILY Ferrous Sulfate Tab (Feosol Tab) Dose: 325 MG PO DAILY Finasteride Tab (Proscar Tab) Dose: 5 MG PO BEDTIME Insulin (Lispro) Inj (HumaLOG Inj) Dose: SubQ C MEALS - 5 units Losartan Tab (Cozaar Tab) Dose: 25 MG PO DAILY Spironolactone Tab (Aldactone Tab) Dose: 25 MG PO DAILY - Take for SBP >140 Tamsulosin Cap (Flomax Cap) Dose: 0.4 MG PO DAILY Tresiba FlexTouch U-100 100 unit/mL (3 mL) subcutaneous insulin pen (insulin degludec) Dose: 36 UNITS SubQ DAILY Acetaminophen Tab (Tylenol Tab) Dose: 650MG PO Q4H PRN pain 1-3/temp>100.5 Furosemide Tab (Lasix Tab) Dose: 20MG PO QAM, Disp: 30 tablet, Refills: 0 STOPPED HOME MEDICATIONS Dc'd: metFORMIN Tab (Glucophage Tab) 1000 MG PO BID STOPPED HOSPITAL MEDICATIONS Dc'd: cloNIDine Tab (Catapres Tab) 0.1MG PO Q8H PRN sbp > 150 or dbp > 100Dc'd: Dextrose 50% 50 ml Syringe (D50W 50 ml Syringe) 25ML IV ASDIR PRN hypoglycemiaDc'd: Docusate Sodium Cap (Colace Cap) 100MG PO BIDDc'd: Glucagon Inj (Glucagon Inj) 1MG IM ASDIR PRN hypoglycemia if no iv/enteralDc'd: Iopamidol 76% Inj (FSED) (Isovue-370 Inj (FSED)) 100ML IV ONCE X [address] contrast protocolDc'd: Lactulose Oral Liquid (Enulose Oral Liquid) 30ML PO BID PRN constipationDc'd: Metoprolol Tartrate Inj (Lopressor Inj) 5MG IV Q6H PRN see special instructionsDc'd: Nitroglycerin SL Tab (Nitrostat SL Tab) 0.4MG SL Q5M PRN chest painDc'd: Ondansetron Inj (Zofran Inj) 4MG IV Q6H PRN nausea and vomitingDc'd: Ondansetron ODT Tab (Zofran ODT Tab) 4MG PO Q6H PRN nausea and vomiting at 1038 ATTE NTION *EDITS and/or ADDENDA must be made in Patient Keeper for this note. * * Edits and ammendments created in [facility] are not visible * * in Patient Keeper or the legal medical record ([facility]). * [facility] #: [id number] END OF REPORT [facility] 2023-05-19 10:38:00 [facility] ([facility]) Hospitalist D/C Summary REPORT #: [id number] REPORT STATUS: Signed DATE: 05/19/23 TIME: 1038 PATIENT: LUIS GUZMÁN UNIT #: [id number] ROOM #: P.0403 BED: A : 55 AGE: 67 SEX: M ATTEND: Rajesh Kilgore MD ADM AUTHOR: Rajesh Kilgore MD ATTE NTION *EDITS and/or ADDENDA must be made in Patient Keeper for this note. * * Edits and ammendments created in [employer] are not visible * * in Patient Keeper or the legal medical record ([facility]). * -- PROBLEMS/PROCEDURES -- ADMISSION DATE: 05/14/23 ADMITTING DIAGNOSES: - Acute weakness - Atrial fibrillation - Coronary artery disease - Elevated troponin - Hyperglycemia - Hypertension - SSS (sick sinus syndrome) DISCHARGE DATE: 05/19/23 DISCHARGE DIAGNOSES: - Acute weakness - Atrial fibrillation - Coronary artery disease - Elevated troponin - Hyperglycemia - Hypertension - SSS (sick sinus syndrome) -- HOSPITAL COURSE -- HOSPITAL COURSE: This 67-year-old gentleman has a past medical history significant for insulin-dependent diabetes with neuropathy, CVA, hypertension, hyperlipidemia and AV fistula repair in the neck, had complaints of progressive fatigue and tiredness and was recently admitted to an outside hospital with a viral illness/pneumonia. Troponin was found to be elevated and echocardiogram showed dilated cardiomyopathy and wall motion abnormalities. The patient underwent selective coronary angiogram by Dr. Katya Cruz on 04/28/2023 which showed critical distal left main disease involving the origin of the left anterior descending, 99%, distal left main 90%, ostium in origin of the left circumflex 90% and a big ramus intermedius with 99% stenosis, first obtuse marginal is small with 80% focal disease, left ventricular ejection fraction 50-55% with anteroapical hypokinesis and end-diastolic pressure of 25. He was admitted to [facility] and on 05/03/2023, and underwent Urgent CABG X 2 using cardiopulmonary bypass Left internal mammary artery bypass to the left anterior descending and first diagonal coronary arteries (sequential graft) Reversed saphenous vein graft to the ramus intermedius coronary artery by Dr Wilfrido Gray. Postoperatively he developed atrial fibrillation with rapid ventricular response requiring IV and oral amiodarone. He also was found to have COVID positivity but was essentially asymptomatic from that. He was discharged home in stable condition on 05/08/2023. He presented to [facility] on 05/14/2023 with complaints of generalized weakness and fatigue that started after breakfast on the day of presentation. He was reportedly hypotensive upon presentation and his troponin was borderline elevated as well as his lactic acid. He received aspirin at the outside hospital. He was transferred to [facility] for suspected non-ST segment elevation myocardial infarction. Upon arrival his symptoms of generalized weakness had already improved and his blood pressure had stabilized. CLINICAL COURSE: 05/15: Today the patient indicated to the nurse that on the day of admission, 05/14, he had actually experienced disorientation, along with blurred and double vision and "could not find the words to speak". He also said that he did not remember having told anybody in the hospital about these symptoms. He is now reporting some double vision specially in the right eye and having aphasia, and stuttering. There is minimal right facial droop on evaluation. He has a previous history of cerebrovascular accident with minimal left sided residual weakness. Stat CT scan and CT angiogram of the head and neck 05/15/22 show: 1. Heterogenous area of white matter hypodensity and gyral irregularity at the left occipital lobe concerning for underlying infiltrative mass. Recommend further evaluation with MRI brain with and without contrast. 2. Prominent left basal vein of Max which is opacified similar to the cerebral arteries suggesting some underlying fistulous connection, however none is clearly identifiable. This may be related to the abnormality at the left occipital lobe as described above. 3. No aneurysm, occlusion, or dissection. No intracranial hemorrhage is seen. Neurology consultation, Dr Nadiya Bergman. pt says that he sees neurologist Dr Andre Chanel and neurosurgeon Dr Asa Romo at [facility] (for his h/o CVA) He also has atrial fibrillation with moderate ventricular response, down to bradycardia and sinus rhythm at times. Discussed with Dr. Keagan Heath. 05/16: MRI brain w/wo: 1. 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 This includes involvement of the left visual cortex and a right homonymous hemianopsia would be expected. 2. 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 3. No space-occupying intracranial mass is otherwise identified. -Also seen by EP services. Bradycardia lowest, 50s. Continue amiodarone for now. No immediate need for pacemaker placement. Avoid other potentially torsadogenic agents i.e. sotalol. 05/17: No acute events overnight. No chest pain or shortness of breath. No new weakness. As per neurology he may be okay for anticoagulation May 22. Discussed with EP, plan for permanent pacemaker 05/18. echo shows: 1. Left ventricle: The cavity size is normal. Wall thickness is normal. Systolic function is normal. The estimated ejection fraction is 55-60%. Wall motion is normal; there are no regional wall motion abnormalities. Left ventricular diastolic function parameters are normal. 2. Left atrium: The atrium is mildly dilated. 05/18: The patient underwent permanent pacemaker placement by Dr. Ronnell perkins, for his sick sinus syndrome. He tolerated the procedure well. He will be on minocycline empirically for 5 days. He has been cleared by the consultants for discharge home May 19, 2023. He will follow-up with his established neurologist and neurosurgeon at [facility] for his recent stroke. 05/19/23: The patient is hemodynamically stable and cleared for discharge home on May 19. He will follow-up with his established neurologist and neurosurgeon at [facility] for his recent stroke. Adequate instructions and prescriptions have been provided. FINAL DIAGNOSIS: 1. Acute weakness and tiredness, etiology likely related to acute/subacute CVA. also, recent Covid positivity, which may be contributory. 1. Heterogenous area of white matter hypodensity and gyral irregularity at the left occipital lobe concerning for underlying infiltrative mass. Recommend further evaluation with MRI brain with and without contrast. 2. Prominent left basal vein of Max which is opacified similar to the cerebral arteries suggesting some underlying fistulous connection, however none is clearly identifiable. This may be related to the abnormality at the left occipital lobe as described above. 3. No aneurysm, occlusion, or dissection. No intracranial hemorrhage is seen. *MRI shows Large subacute infarct involving the left occipital temporal region of the posterior cerebral artery distribution. This includes involvement of the left visual cortex and a right homonymous hemianopsia would be expected. 2. 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 3. No space-occupying intracranial mass -Start anticoagulation 05/22. 2. Borderline elevated troponin, likely sequelae of recent multivessel CABG. H/O CABG X 2, Left internal mammary artery bypass to the left anterior descending and first diagonal coronary arteries (sequential graft) Reversed saphenous vein graft to the ramus intermedius coronary artery by Dr Wilfrido Gray 05/03/23. CAD appears to be clinically stable. Continue guideline directed medical therapy including beta-blockers statins aspirin and clopidogrel. 3. Diabetes mellitus type 2, not well controlled. Hemoglobin A1c is 8.2. Continue long-acting and short-acting insulins. 4. Hypertension, Continue current home medication regimen of beta-blockers and ARB. 5. Benign prostatic hypertrophy. Continue finasteride and tamsulosin. 6. History of cerebrovascular accident, with minimal left-sided residual weakness. 7. Chronic kidney disease stage II. 8. Anemia. 9. Lactic acidosis, transient, etiology unclear. No definite evidence of infection or sepsis. 10. Leukocytosis, reactive. 11. COVID positivity, recent. 12. Atrial fibrillation, perioperative. Converted to sinus rhythm with amiodarone. He has already been loaded with amiodarone, continue maintenance dose 200 mg daily. He is not on DOAC because of very recent CABG. 13. Elevated BNP, no definite evidence of CHF. Gentle diuresis. 14. Tachybradycardia, likely SSS. underwent PPM 05/18. -- DISCHARGE MEDICATIONS -- ALLERGIES: No Known Allergies (UNKNOWN - Allergy) [EXTERNAL] No Known Allergies (UNKNOWN - External allergies are for display only, consider adding to medical record for drug interaction check) DISCHARGE MEDICATIONS: Please refer to Discharge Medication list for a complete list of discharge medications Acetaminophen Tab (Tylenol Tab) 650 MG PO Q4H PRN pain 1-3/temp>100.5 Amiodarone Tab (Cordarone Tab) 200 MG PO DAILY aspirin chewable tablet 81 MG PO DAILY Atorvastatin Tab (Lipitor Tab) 80 MG PO BEDTIME Carvedilol Tab (Coreg Tab) 25 MG PO BID MEALS Clopidogrel Tab (Plavix Tab) 75 MG PO DAILY Ferrous Sulfate Tab (Feosol Tab) 325 MG PO DAILY Finasteride Tab (Proscar Tab) 5 MG PO BEDTIME Furosemide Tab (Lasix Tab) 20MG PO QAM, Disp: 30 tablet, Refills: 0 Insulin (Lispro) Inj (HumaLOG Inj) SubQ C MEALS (5 units) Losartan Tab (Cozaar Tab) 25 MG PO DAILY Minocycline Hcl cap (minocycline) 100 MG PO BID, Disp: 10 capsule, Refills: 0 Spironolactone Tab (Aldactone Tab) 25 MG PO DAILY (Take for SBP >140) Tamsulosin Cap (Flomax Cap) 0.4 MG PO DAILY Tresiba FlexTouch U-100 100 unit/mL (3 mL) subcutaneous insulin pen (insulin degludec) 36 UNITS SubQ DAILY -- DISCHARGE INSTRUCTIONS -- ADMISSION ORDERS: Discharge Follow Up Details: Order number: [id number] Category: ADT - Admission Orders Order status: Transmitted Details: Consulting provider 1: JOHN:Nadiya Bergman MD Consulting provider 1: . Consult follow up timeframe: as needed Consulting provider 2: [email or web address]:Ronnell Banerjee MD Consult special instructions: PPM follow up Ordered by: Rajesh Kilgore MD May 19, 2023 10:38am Entered by: Rajesh Kilgore MD Service date: May 19, 2023 10:37am PK DISCHARGE ORDERS: Discharge Nick w/instruction Details: Order number: [id number] Category: PKDC - PK DISCHARGE ORDERS Order status: Transmitted Details: Discharge Parameters: Procedures Meds given Procedure: Transportation arranged Meds to be Given:(Enter specifics) scheduled meds Discharge order with parameter: Yes Notify attending when discharge parameter met: Yes Discharge to: Home/Self Care Diet: Diabetic Cardiac Activity: As Tolerated No [place] for 6 Wks No Lifting gt;10lbs No Sports/Activities No Strenuous Activity PCP follow up timeframe: 1 week Notify PCP of Signs/Symptoms: Chest Pain Moderate/large bleeding Shortness of breath Temp. 101 or greater Wound/dressing care: OK to shower tomorrow Weight Monitoring: Daily Additional instructions: discharge home. meds per med rec. FOLLOW UP WITH DR CHANEL AND DR ROMO (NEURO) at [facility] in 3-5 days as per appointment Attending Physician: ORIY:Wilfrido Gray MD Attending physician follow up timeframe: In 3-4 weeks Attending physician special instructions: post CABG follow up Additional Discharge Routines: PCP Follow-Up Attending Follow-Up Ordered by: Rajesh Kilgore MD May 19, 2023 10:38am Entered by: Rajesh Kilgore MD Service date: May 19, 2023 10:37am Details: Order number: [id number] Category: PKDC - PK DISCHARGE ORDERS Order status: Transmitted Details: Does patient have any of the following conditions at discharge? Stroke/TIA/Carotid Sten. Statin at Discharge? Yes LDL Level: 82 Antithrombotic at Discharge? Yes HX/Current/Suspected AFIB/AFLUTTER: Yes Anticoagulation Therapy at Discharge? No Anticoagulation Contraindications: Other Specific Reason Other Specific Reason: recent CABG; later Assessed for PT/OT/ST? Yes Ordered by: Rajesh Kilgore MD May 19, 2023 10:38am Entered by: Rajesh Kilgore MD Service date: May 19, 2023 10:37am DC - ALL eCQMS Yes; recent CABG; later; Yes; recent CABG; later; No; Other Specific Reason; recent CABG; later ADDTIONAL DISCHARGE INSTRUCTIONS: Emergency Instructions: The patient was instructed to present to the nearest Emergency Department or call 911 should their symptoms return or worsen.; -- OBJECTIVE -- VITALS (05/18 10:38 - 05/19 10:38): Temperature C: 36.8 (36.7 - 36.8) Pulse Rate 61 (60 - 65) Respiratory rate: 12 (12 - 25) Blood pressure: 128/61 (105/55 - 155/76) Blood pressure source: Monitor I/Os (05/18 07:00 - 05/19 07:00): Net -225.00 Intake 600.00 Output 825 -EXAM- GENERAL: GENERAL: Elderly male, NAD. VITAL SIGNS: Weight is 78.2 kilograms. Body mass index 27. HEENT: Head is atraumatic. Pupils are reactive to light and accommodation. Extraocular muscles intact. NECK: Supple. No thyromegaly. No JVD. CARDIOVASCULAR: Regular rate and rhythm. CHEST: sternotomy. L PPM LUNGS: Clear to auscultation. ABDOMEN: Soft, nontender. EXTREMITIES: No edema, cyanosis or clubbing. Pedal pulses palpable. NEUROLOGIC: Minimal chronic left-sided weakness. Intermittent aphasia, resolved. -- DATA -- LABS LACTIC ACID (05/14/23 16:42) LACTIC ACID 1.60 TROPI (05/14/23 16:42) TROPONIN-I 80.0 CBC W/AUTO DIFF (05/14/23 16:42) WHITE BLOOD CELL 14.2H H RED BLOOD CELL 3.76 L HEMOGLOBIN 10.2L L HEMATOCRIT 30.2L L MEAN CELL VOLUME 80.3 MEAN CELL HGB 27.1 MEAN CELL HGB CONCENTRATION 33.8 RED CELL DISTRIBUTION WIDTH 14.0 PLATELET COUNT 315 MEAN PLATELET VOLUME 9.4 NEUTROPHIL % 78.2 H LYMPHOCYTE % 11.4 L MONOCYTE % 6.6 EOSINOPHIL % 2.2 BASOPHIL % 0.4 NEUTROPHIL # 11.11 H LYMPHOCYTE # 1.62 MONOCYTE # 0.94 H EOSINOPHIL # 0.31 BASOPHIL # 0.05 COMPREHENSIVE METABOLIC PANEL (05/14/23 16:42) SODIUM 134 L POTASSIUM 4.2 CHLORIDE 100 CARBON DIOXIDE 27 GLUCOSE 319 H BLOOD UREA NITROGEN 8 L GLOMERULAR FILTRATION RATE >=60 max estimate CREATININE 0.80 TOTAL PROTEIN 5.7 ALBUMIN 3.5 CALCIUM 8.0 L BILIRUBIN TOTAL 0.6 SGOT/AST 14 SGPT/ALT 15 ALKALINE PHOSPHATASE 131.0 H BNP (05/14/23 16:42) B-TYPE NATRIURETIC PEPTIDE 430 H GLU BED (05/19/23 07:37) GLUBED 98 -- QUALITY -- -MEDICATIONS- - I attest that the foregoing medication list in the medical record is true, accurate, and complete to the best of my knowledge. -- ATTESTATION -- TIME SPENT ON PATIENT CARE: - Direct 35 minutes - > 50% of time spent on Counseling/Care Coordination CARE ACTIVITIES / CARE COORDINATION: - I have reviewed the history and repeated the gupta elements - I have seen and examined this patient - I have reviewed the progress in the clinical course since the last examination - I have discussed the patient's condition with other members of the care team Signed in PatientKeeper by Rajesh Kilgore MD on 06/09/23 at 22:40 at 2240 ATTE NTION *EDITS and/or ADDENDA must be made in Patient Keeper for this note. * * Edits and ammendments created in [employer] are not visible * * in Patient Keeper or the legal medical record (HPF). * RPT #: [id number] END OF REPORT [facility] 2023-05-19 09:13:00 [facility] ([facility]) Cardiology Progress Notes REPORT #: [id number] REPORT STATUS: Signed DATE: 05/19/23 TIME: 912 PATIENT: LUIS GUZMÁN UNIT #: [id number] ROOM #: [id number] BED: A : 55 AGE: 67 SEX: M ATTEND: Rajesh Kilgore MD ADM AUTHOR: Araceli Saucedo ATTE NTION *EDITS and/or ADDENDA must be made in Patient Keeper for this note. * * Edits and ammendments created in [employer] are not visible * * in Patient Keeper or the legal medical record (HPF). * -- CO-SIGNATURE -- COMMENTS: Agree with above from Araceli Saucedo PA-C. I performed the physical exam and obtained the history in supervision of Araceli Saucedo. Agree with her documentation with the following additions. S/p DC-PPM. Doing well from EP perspective. Interrogation wnl this am. CXR w/o interrogation. Follow-up in 2 weeks. Signed in PatientKeeper by RONNELL BANERJEE MD on 05/21/23 at 22:09 -- ASSESSMENT AND PLAN -- PROBLEMS: 1: SSS (sick sinus syndrome) A/P: -SSS with symptomatic bradycardia punctuated with AF episodes, rates in 40s bpm -No intracranial mass on MRI, findings show recent infarct -s/p Hoyt DC PPM w/ LBBP - 05/18/23 - post op interrogation are stable with appropriate parameters/thresholds - Left chest pressure dressing removed - post op CXR with no pneumo - Dressings and bandage underneath are clean and intact - Restrictions: No lifting >15 lb x 1 week, no raising left arm above shoulder for 4 weeks however should still mobilize arm to avoid frozen shoulder - Stable from EP perspective for discharge - Follow up recommend 2-4 week for incision check and PPM interrogation - Discussed with Dr. Banerjee - Educational materials/folder given - Greatly appreciate Dr. Wei/Eduardo/consulting teams input and assistance. 2: Atrial fibrillation A/P: - see above -- SUBJECTIVE -- HPI: 67yo man hx DMII, CVA, HTN, DLD, ESRD w/ fistula, HFrEF, CAD s/p CABG, atrial fibrillation. EP consulted for bradycardia, atrial fibrillation and atrial flutter. Review of MRI with neurology with no intracranial mass, findings show recent infarct. Has events of bradycardia 40s bpm with atrial fibrillation/flutter. PATIENT NARRATIVE: - s/p Hoyt DC PPM 05/18/23 - sitting up in chair, feeling great and notices improved energy levels - at bedside - left-sided chest pressure dressing present -REVIEW OF SYSTEMS- GENERAL: See above -- OBJECTIVE -- VITALS (05/18 09:13 - 05/19 09:13): Temperature C: 36.8 (36.7 - 36.8) Pulse Rate 61 (60 - 65) Respiratory rate: 12 (12 - 25) Blood pressure: 128/61 (105/55 - 155/76) Blood pressure source: Monitor I/Os (05/18 07:00 - 05/19 07:00): Net -225.00 Intake 600.00 Output 825 -EXAM- GENERAL: Well developed, well nourished, in no apparent distress. HEAD: Normocephalic, atraumatic. EYES: PERRL, EOM intact EARS: TM's intact and clear, normal canals, grossly normal hearing. NOSE: No deformity, no discharge, no inflammation, no lesions. MOUTH: Oropharynx without deformities or lesions, normal mucosa.. LUNGS: Clear bilaterally with normal respiratory effort. HEART: Regular rate and rhythm, normal S1, S2, no murmurs, no rubs, no gallops, no clicks. ABDOMEN: Soft, non-tender, no organomegaly, no masses noted. EXTREMITIES: WWP, no edema. NEUROLOGICAL: No focal deficits, normal sensation, normal reflexes, normal coordination, normal muscle strength, normal tone. SKIN: Intact without significant lesions, or rashes. PSYCHIATRIC: Alert and oriented to time, person, place. Normal mood and affect, intact judgment and insight. -- DATA -- ALLERGIES [EXTERNAL] No Known Allergies - MEDICATIONS INSULIN GLARGINE 30 UNITS SUBQ BEDTIME DEXTROSE 50%-WATER 25 ML IV ASDIR PRN INSULIN LISPRO 5 UNITS SUBQ AC FERROUS SULFATE 325 MG PO BID LACTULOSE 30 ML PO BID PRN METOPROLOL TARTRATE 5 MG IV Q6H PRN carvediloL 25 MG PO Q12HR clopidogreL 75 MG PO DAILY FUROSEMIDE 20 MG PO QAM DOCUSATE SODIUM 100 MG PO BID ONDANSETRON HCL/PF 4 MG IV Q6H PRN AMIODARONE HCL 200 MG PO DAILY LOSARTAN POTASSIUM 25 MG PO DAILY GLUCAGON 1 MG IM ASDIR PRN FINASTERIDE 5 MG PO BEDTIME INSULIN LISPRO 0 UNITS SUBQ C MEALS HS ONDANSETRON 4 MG PO Q6H PRN ASPIRIN 81 MG PO DAILY ACETAMINOPHEN 650 MG PO Q4H PRN cloNIDine HCL 0.1 MG PO Q8H PRN NITROGLYCERIN 0.4 MG SL Q5M PRN IOPAMIDOL 76% 100 ML IV ONCE (PRN) SPIRONOLACTONE 25 MG PO DAILY TAMSULOSIN 0.4 MG PO DAILY ATORVASTATIN CALCIUM 40 MG PO BEDTIME LABS GLU BED (05/19/23 07:37) GLUBED 98 TEST RESULTS XR CHEST 1 V (05/18/23 12:25) VITALS Temperature F: 05/19/23 08:11 05/19/23 07:00 05/19/23 06:00 05/19/23 05:01 05/19/23 04:00 05/19/23 03:00 05/19/23 02:00 05/19/23 01:00 05/19/23 00:00 05/18/23 23:00 Pulse Rate 05/19/23 08:11 61 05/19/23 07:00 60 05/19/23 06:00 60 05/19/23 05:01 60 05/19/23 04:00 60 05/19/23 03:00 60 05/19/23 02:00 60 05/19/23 01:00 60 05/19/23 00:00 62 05/18/23 23:00 60 Respiratory rate: 05/19/23 08:11 12 05/19/23 07:00 20 05/19/23 06:00 05/19/23 05:01 25 05/19/23 04:00 05/19/23 03:00 05/19/23 02:00 05/19/23 01:00 15 05/19/23 00:00 16 05/18/23 23:00 16 Blood pressure: 05/19/23 08:11 05/19/23 07:00 128 / 61 01/11/24 06:00 136 / 62 05/19/23 05:01 118 / 61 05/19/23 04:00 117 / 62 05/19/23 03:00 105 / 56 05/19/23 02:00 126 / 58 05/19/23 01:00 107 / 59 05/19/23 00:00 123 / 59 05/18/23 23:00 116 / 55 SPO2 %: 05/19/23 08:11 100 05/19/23 07:00 100 05/19/23 06:00 97 05/19/23 05:01 100 05/19/23 04:00 100 05/19/23 03:00 98 05/19/23 02:00 99 05/19/23 01:00 98 05/19/23 00:00 99 05/18/23 23:00 97 -- ATTESTATION -- TIME SPENT ON PATIENT CARE: - Direct - Counseling - Coordination of Care - > 50% of time spent on Counseling/Care Coordination CARE ACTIVITIES / CARE COORDINATION: - I have reviewed the history and repeated the gupta elements - I have seen and examined this patient - I have reviewed the progress in the clinical course since the last examination - I have discussed the patient's condition with other members of the care team ADDITIONAL DETAIL: Reviewed with Dr Ronnell Banerjee Signed in PatientKeeper by Araceli Saucedo on 05/19/23 at 18:30 Cosigned by RONNELL BANERJEE MD on 05/21/23 at 22:09 at 2209 at 2209 ATTE NTION *EDITS and/or ADDENDA must be made in Patient Keeper for this note. * * Edits and ammendments created in [facility] are not visible * * in Patient Keeper or the legal medical record (HPF). * [facility] #: [id number] END OF REPORT [facility] 2023-05-19 08:00:00 [facility] ([facility]) Cardiology Progress Notes REPORT #: [id number] REPORT STATUS: Signed DATE: 05/19/23 TIME: 0800 PATIENT: LUIS GUZMÁN UNIT #: [id number] ROOM #: [id number] BED: A : 55 AGE: 67 SEX: M ATTEND: Rajesh Kilgore MD ADM AUTHOR: Mckay Meyer ATTE NTION *EDITS and/or ADDENDA must be made in Patient Keeper for this note. * * Edits and ammendments created in [employer] are not visible * * in Patient Keeper or the legal medical record (HPF). * -- CO-SIGNATURE -- COMMENTS: The patient was seen on rounds with ZOHRA Rosario. The patient has no complaints Examination demonstrates normal heart sounds and clear lung mcmanus. Impression and plan The patient is a 67-year-old gentleman with a history of coronary artery disease with previous bypass surgery on May 03. The patient had been admitted to [facility] with generalized fatigue and blood work demonstrated a borderline troponin and he was transferred here for further care and evaluation for his diplopia and aphasia. CT scan did not demonstrate any new lesions. MRI however revealed a subacute left temporal and occipital stroke. The patient is currently on dual antiplatelet therapy. -Status post dual-chamber pacemaker. Continue amiodarone -Continue GDMT for coronary artery disease. -Further anticoagulation for the stroke is per neurology as they have to wait the risk of hemorrhagic conversion with a DOAC or warfarin. Signed in PatientKeeper by JUAN M WEI MD on 06/19/23 at 11:53 -- ASSESSMENT AND PLAN -- PROBLEMS: 1: Acute weakness A/P: The patient is a 67-year-old gentleman (patient of Dr. Katya Cruz) has a PMHx of coronary artery disease (s/p CABG x2V on 05/03/23), h/o CVA (minimal left sided residual weakness), hyperlipidemia, hypertension, diabetes (insulin-dependent), neuropathy, AV fistula repair in the neck. On 04/28/23, he underwent selective coronary angiogram at [facility] for worsening fatigue and possibly chest discomfort and showed distal left main disease (90%), LAD (99%), ostial LCx (90%), RI (99%), OM1 (small, 80%). Echo showed an EF of 50-55%, and restrictive physiology with diastolic dysfunction. He was transferred here for urgent bypass surgery with Dr. Wilfrdio Gray and had 2 Vessel CABG (WERNER-LAD and SVG-RI) on 04/2623. Post-op he went into atrial fibrillation with RVR, started on IV and PO amiodarone. He tested COVID positive, was asymptomatic. He was discharged on stable condition on 05/08/23. On 05/14/22, he presented at [facility] with complaint of generalized weakness and fatigue that started earlier that day after breakfast. He was found to be hypotensive. Blood work showed borderline troponin and lactic acid, and was suspected NSTEMI. He was transferred here to [facility] for higher level of care. The patient seen in the room, alert, oriented and in no acute distress. He states on 05/14/22 after eating breakfast had sudden onset of generalized weakness, blurry vision and "could not find the words to speak", loss of balance that lasted "short time". Patient is currently reporting right eye double vision, has aphasia, slight right facial drooping on examination and stuttering. STAT CTA head/neck ordered and neurology consulted. STAT CTA head/neck showed heterogenous area of white matter hypodensity and gyral irregularity at the left occipital lobe concerning for underlying infiltrative mass, prominent left basal vein of Max which is opacified similar to the cerebral arteries suggesting some underlying fistulous connection, however none is clearly identifiable. This may be related to the abnormality at the left occipital lobe as described above. - Dr. Bergman with neurology services following, MRI brain revealing large subacute left temporal and occipital stroke. Recommended cerebral angiogram as outpatient with his neurologist/neurosurgeon - Patient sees Dr. Andre Chanel (neurologist) and Dr. Asa Romo at [facility] (for h/o CVA) as outpatient 2: SSS (sick sinus syndrome) A/P: - S/p DC-PPM by Dr. Banerjee on 05/18/23 - Continue PO amiodarone 200mg daily - Dr. Banerjee/Dieudonne with electrophysiology services following 3: Coronary artery disease A/P: - S/p CABG x 2V on 05/03/23 - On DAPT with aspirin and clopidogrel - On atorvastatin 40mg daily and carvedilol 25mg BID - On PO furosemide 20mg daily -- SUBJECTIVE -- CHIEF COMPLAINT: Acute weakness PATIENT NARRATIVE: S/p DC-PPM on 05/18/23. No acute events overnight per nursing staff. -REVIEW OF SYSTEMS- GENERAL: Negative for fever, malaise, fatigue. EYES: Negative for blurry vision. No diplopia. EARS/NOSE/THROAT: Negative for sore throat. No otalgia. No rhinorrhea. + right eye double vision RESPIRATORY: Negative for dyspnea or wheeze. No cough. CARDIOVASCULAR: Negative for chest pain or palpitations. No extremity swelling. GASTROINTESTINAL: Negative for abdominal pain or nausea. No emesis. No diarrhea. GENITOURINARY: Negative for dysuria, frequency, or urgency. No gross hematuria. MUSCULOSKELETAL: Negative for joint stiffness, pain, or arthralgias. SKIN: Negative for rashes. No pruritus. NEUROLOGICAL: Negative for headache. No vertigo. Denies paresthesias. + aphasia and minimal right facial drooping PSYCHIATRIC: Negative for specific complaints. -- OBJECTIVE -- VITALS (05/18 07:29 - 05/19 07:29): Temperature C: 36.8 (36.7 - 36.8) Pulse Rate 60 (57 - 65) Respiratory rate: 25 (15 - 25) Blood pressure: 136/62 (105/55 - 159/76) Blood pressure source: Monitor I/Os (05/18 07:00 - 05/19 07:00): Net -225.00 Intake 600.00 Output 825 -EXAM- OTHER: Constitutional: Well developed, well nourished patient, in no acute distress. Derm/Integumentary: Warm and dry with no rashes, sores, or lesions. HEENT: Eyes-sclera clear and white, symmetrical w/ no lag. ENT - Palate and gums pink, mucosa moist, no pallor/cyanosis. Neck: supple with no masses, no thyromegaly, No JVD. Respiratory: Clear to auscultation. Chest: Median sternotomy intact, no drainage Heart: S1S2+, Regular Rate and Rhythm, No murmurs, rubs, or gallops. + DC-PPM Gastrointestinal: + Bowel Sounds all quadrants. Soft, nontender with no masses or organomegaly; No HJR. Musculoskeletal: Equal strength in all extremities. No weakness. Neurology: Alert and oriented X 3. Calm, cooperative affect. No focal deficits. Extremities: + peripheral pulses. No clubbing, cyanosis. No lower extremity edema. -- DATA -- MEDICATIONS INSULIN GLARGINE 30 UNITS SUBQ BEDTIME DEXTROSE 50%-WATER 25 ML IV ASDIR PRN INSULIN LISPRO 5 UNITS SUBQ AC FERROUS SULFATE 325 MG PO BID LACTULOSE 30 ML PO BID PRN METOPROLOL TARTRATE 5 MG IV Q6H PRN carvediloL 25 MG PO Q12HR clopidogreL 75 MG PO DAILY FUROSEMIDE 20 MG PO QAM DOCUSATE SODIUM 100 MG PO BID ONDANSETRON HCL/PF 4 MG IV Q6H PRN AMIODARONE HCL 200 MG PO DAILY LOSARTAN POTASSIUM 25 MG PO DAILY GLUCAGON 1 MG IM ASDIR PRN FINASTERIDE 5 MG PO BEDTIME INSULIN LISPRO 0 UNITS SUBQ C MEALS HS ONDANSETRON 4 MG PO Q6H PRN ASPIRIN 81 MG PO DAILY ACETAMINOPHEN 650 MG PO Q4H PRN cloNIDine HCL 0.1 MG PO Q8H PRN NITROGLYCERIN 0.4 MG SL Q5M PRN IOPAMIDOL 76% 100 ML IV ONCE (PRN) SPIRONOLACTONE 25 MG PO DAILY TAMSULOSIN 0.4 MG PO DAILY ATORVASTATIN CALCIUM 40 MG PO BEDTIME -- ATTESTATION -- CARE ACTIVITIES / CARE COORDINATION: - I have reviewed the history and repeated the gupta elements - I have seen and examined this patient - I have reviewed the progress in the clinical course since the last examination - I have discussed the patient's condition with other members of the care team ADDITIONAL DETAIL: Plan of care discussed with Dr. Juan M Wei Signed in PatientKeeper by MCKAY MEYER on 05/19/23 at 15:45 Cosigned by JUAN M WEI MD on 06/19/23 at 11:53 at 1153 at 1153 ATTE NTION *EDITS and/or ADDENDA must be made in Patient Keeper for this note. * * Edits and ammendments created in [employer] are not visible * * in Patient Keeper or the legal medical record (HPF). * RPT #: [id number] END OF REPORT [facility] 2023-05-18 23:02:00 [facility] ([facility]) Hospitalist Progress Note REPORT #: [id number] REPORT STATUS: Signed DATE: 05/18/23 TIME: 2301 PATIENT: LUIS GUZMÁN UNIT #: [id number] ROOM #: [id number] BED: A : 55 AGE: 67 SEX: M ATTEND: Rajesh Kilgore MD ADM AUTHOR: Rajesh Kilgore MD RENNY LEMA *EDITS and/or ADDENDA must be made in Patient Keeper for this note. * * Edits and ammendments created in [employer] are not visible * * in Patient Keeper or the legal medical record (HPF). * -- ASSESSMENT AND PLAN -- GENERAL ASSESSMENT: ASSESSMENT AND PLAN: 1. Acute weakness and tiredness, etiology likely related to acute/subacute CVA. also, recent Covid positivity, which may be contributory. 1. Heterogenous area of white matter hypodensity and gyral irregularity at the left occipital lobe concerning for underlying infiltrative mass. Recommend further evaluation with MRI brain with and without contrast. 2. Prominent left basal vein of Max which is opacified similar to the cerebral arteries suggesting some underlying fistulous connection, however none is clearly identifiable. This may be related to the abnormality at the left occipital lobe as described above. 3. No aneurysm, occlusion, or dissection. No intracranial hemorrhage is seen. *MRI shows Large subacute infarct involving the left occipital temporal region of the posterior cerebral artery distribution. This includes involvement of the left visual cortex and a right homonymous hemianopsia would be expected. 2. 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 3. No space-occupying intracranial mass -Start anticoagulation 05/22. 2. Borderline elevated troponin, likely sequelae of recent multivessel CABG. H/O CABG X 2, Left internal mammary artery bypass to the left anterior descending and first diagonal coronary arteries (sequential graft) Reversed saphenous vein graft to the ramus intermedius coronary artery by Dr Wilfrido Gray 05/03/23. CAD appears to be clinically stable. Continue guideline directed medical therapy including beta-blockers statins aspirin and clopidogrel. 3. Diabetes mellitus type 2, not well controlled. Hemoglobin A1c is 8.2. Continue long-acting and short-acting insulins. 4. Hypertension, Continue current home medication regimen of beta-blockers and ARB. 5. Benign prostatic hypertrophy. Continue finasteride and tamsulosin. 6. History of cerebrovascular accident, with minimal left-sided residual weakness. 7. Chronic kidney disease stage II. 8. Anemia. 9. Lactic acidosis, transient, etiology unclear. No definite evidence of infection or sepsis. 10. Leukocytosis, reactive. 11. COVID positivity, recent. 12. Atrial fibrillation, perioperative. Converted to sinus rhythm with amiodarone. He has already been loaded with amiodarone, continue maintenance dose 200 mg daily. He is not on DOAC because of very recent CABG. 13. Elevated BNP, no definite evidence of CHF. Gentle diuresis. 14. Tachybradycardia, likely SSS. underwent PPM 05/18. ADDITIONAL COMMENTS: Large subacute infarct involving the left occipital temporal region of the posterior cerebral artery distribution. -s/p PPM 05/18. Likely discharge home 05/19. He will follow-up with his established neurologist and neurosurgeon at [facility]. -- SUBJECTIVE -- HPI: This 67-year-old gentleman has a past medical history significant for insulin-dependent diabetes with neuropathy, CVA, hypertension, hyperlipidemia and AV fistula repair in the neck, had complaints of progressive fatigue and tiredness and was recently admitted to an outside hospital with a viral illness/pneumonia. Troponin was found to be elevated and echocardiogram showed dilated cardiomyopathy and wall motion abnormalities. The patient underwent selective coronary angiogram by Dr. Katya Cruz on 04/28/2023 which showed critical distal left main disease involving the origin of the left anterior descending, 99%, distal left main 90%, ostium in origin of the left circumflex 90% and a big ramus intermedius with 99% stenosis, first obtuse marginal is small with 80% focal disease, left ventricular ejection fraction 50-55% with anteroapical hypokinesis and end-diastolic pressure of 25. He was admitted to [facility] and on 05/03/2023, and underwent Urgent CABG X 2 using cardiopulmonary bypass Left internal mammary artery bypass to the left anterior descending and first diagonal coronary arteries (sequential graft) Reversed saphenous vein graft to the ramus intermedius coronary artery by Dr Wilfrido Gray. Postoperatively he developed atrial fibrillation with rapid ventricular response requiring IV and oral amiodarone. He also was found to have COVID positivity but was essentially asymptomatic from that. He was discharged home in stable condition on 05/08/2023. He presented to [facility] on 05/14/2023 with complaints of generalized weakness and fatigue that started after breakfast on the day of presentation. He was reportedly hypotensive upon presentation and his troponin was borderline elevated as well as his lactic acid. He received aspirin at the outside hospital. He was transferred to [facility] for suspected non-ST segment elevation myocardial infarction. Upon arrival his symptoms of generalized weakness had already improved and his blood pressure had stabilized. PATIENT NARRATIVE: 05/15: Today the patient indicated to the nurse that on the day of admission, 05/14, he had actually experienced disorientation, along with blurred and double vision and "could not find the words to speak". He also said that he did not remember having told anybody in the hospital about these symptoms. He is now reporting some double vision specially in the right eye and having aphasia, and stuttering. There is minimal right facial droop on evaluation. He has a previous history of cerebrovascular accident with minimal left sided residual weakness. Stat CT scan and CT angiogram of the head and neck 05/15/22 show: 1. Heterogenous area of white matter hypodensity and gyral irregularity at the left occipital lobe concerning for underlying infiltrative mass. Recommend further evaluation with MRI brain with and without contrast. 2. Prominent left basal vein of Max which is opacified similar to the cerebral arteries suggesting some underlying fistulous connection, however none is clearly identifiable. This may be related to the abnormality at the left occipital lobe as described above. 3. No aneurysm, occlusion, or dissection. No intracranial hemorrhage is seen. Neurology consultation, Dr Nadiya Bergman. pt says that he sees neurologist Dr Andre Chanel and neurosurgeon Dr Asa Romo at [facility] (for his h/o CVA) He also has atrial fibrillation with moderate ventricular response, down to bradycardia and sinus rhythm at times. Discussed with Dr. Keagan Heath. 05/16: MRI brain w/wo: 1. 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 This includes involvement of the left visual cortex and a right homonymous hemianopsia would be expected. 2. 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 3. No space-occupying intracranial mass is otherwise identified. -Also seen by EP services. Bradycardia lowest, 50s. Continue amiodarone for now. No immediate need for pacemaker placement. Avoid other potentially torsadogenic agents i.e. sotalol. 05/17: No acute events overnight. No chest pain or shortness of breath. No new weakness. As per neurology he may be okay for anticoagulation May 22. Discussed with EP, plan for permanent pacemaker 05/18. echo shows: 1. Left ventricle: The cavity size is normal. Wall thickness is normal. Systolic function is normal. The estimated ejection fraction is 55-60%. Wall motion is normal; there are no regional wall motion abnormalities. Left ventricular diastolic function parameters are normal. 2. Left atrium: The atrium is mildly dilated. 05/18: The patient underwent permanent pacemaker placement by Dr. Ronnell perkins, for his sick sinus syndrome. He tolerated the procedure well. He will be on minocycline empirically for 5 days. He has been cleared by the consultants for discharge home May 19, 2023. He will follow-up with his established neurologist and neurosurgeon at [facility] for his recent stroke. -REVIEW OF SYSTEMS- GENERAL: weakness, fatigue EYES: Negative for blurry vision. No diplopia. EARS/NOSE/THROAT: Negative for sore throat. No otalgia. No rhinorrhea. RESPIRATORY: Negative for dyspnea or wheeze. No cough. CARDIOVASCULAR: Negative for chest pain or palpitations. No extremity swelling. GASTROINTESTINAL: Negative for abdominal pain or nausea. No emesis. No diarrhea. GENITOURINARY: Negative for dysuria, frequency, or urgency. No gross hematuria. MUSCULOSKELETAL: Negative for joint stiffness, pain, or arthralgias. SKIN: Negative for rashes. No pruritus. NEUROLOGICAL: Difficulty finding words, stuttering, double vision in the right eye. ENDOCRINE: Negative for cold intolerance, heat intolerance, polyphagia, polydipsia, polyuria, weight change, fatigue. HEMATALOGIC / LYMPHORETICULAR: Negative for excessive bleeding, unusual masses. -- OBJECTIVE -- VITALS (05/17 23:03 - 05/18 23:03): Temperature C: 36.8 (36.7 - 37.0) Pulse Rate 64 (52 - 65) Respiratory rate: 20 (15 - 23) Blood pressure: 143/68 (107/57 - 159/76) Blood pressure source: Monitor I/Os (05/17 07:00 - 05/18 07:00): Net -95 Intake 1,030 Output 1,125 -EXAM- GENERAL: GENERAL: Elderly male, NAD. VITAL SIGNS: Weight is 78.2 kilograms. Body mass index 27. HEENT: Head is atraumatic. Pupils are reactive to light and accommodation. Extraocular muscles intact. NECK: Supple. No thyromegaly. No JVD. CARDIOVASCULAR: Regular rate and rhythm. CHEST: sternotomy. L PPM LUNGS: Clear to auscultation. ABDOMEN: Soft, nontender. EXTREMITIES: No edema, cyanosis or clubbing. Pedal pulses palpable. NEUROLOGIC: Minimal chronic left-sided weakness. Intermittent aphasia, resolved. -- DATA -- MEDICATIONS INSULIN GLARGINE 30 UNITS SUBQ BEDTIME DEXTROSE 50%-WATER 25 ML IV ASDIR PRN INSULIN LISPRO 5 UNITS SUBQ AC FERROUS SULFATE 325 MG PO BID LACTULOSE 30 ML PO BID PRN METOPROLOL TARTRATE 5 MG IV Q6H PRN carvediloL 25 MG PO Q12HR clopidogreL 75 MG PO DAILY FUROSEMIDE 20 MG PO QAM DOCUSATE SODIUM 100 MG PO BID ONDANSETRON HCL/PF 4 MG IV Q6H PRN AMIODARONE HCL 200 MG PO DAILY LOSARTAN POTASSIUM 25 MG PO DAILY GLUCAGON 1 MG IM ASDIR PRN FINASTERIDE 5 MG PO BEDTIME INSULIN LISPRO 0 UNITS SUBQ C MEALS HS ONDANSETRON 4 MG PO Q6H PRN ASPIRIN 81 MG PO DAILY ACETAMINOPHEN 650 MG PO Q4H PRN cloNIDine HCL 0.1 MG PO Q8H PRN NITROGLYCERIN 0.4 MG SL Q5M PRN IOPAMIDOL 76% 100 ML IV ONCE (PRN) SPIRONOLACTONE 25 MG PO DAILY TAMSULOSIN 0.4 MG PO DAILY ATORVASTATIN CALCIUM 40 MG PO BEDTIME -- QUALITY -- -MEDICATIONS- - I attest that the foregoing medication list in the medical record is true, accurate, and complete to the best of my knowledge. -- ATTESTATION -- CARE ACTIVITIES / CARE COORDINATION: - I have reviewed the history and repeated the gupta elements - I have seen and examined this patient - I have reviewed the progress in the clinical course since the last examination - I have discussed the patient's condition with other members of the care team Signed in PatientKeeper by Rajesh Kilgore MD on 05/18/23 at 23:06 at 2306 ATTE NTION *EDITS and/or ADDENDA must be made in Patient Keeper for this note. * * Edits and ammendments created in [facility] are not visible * * in Patient Keeper or the legal medical record ([facility]PF). * RPT #: [id number] END OF REPORT [facility] 2023-05-18 11:54:00 [facility] ([facility]) Operative Report REPORT #: [id number] REPORT STATUS: Signed DATE: 05/18/23 TIME: 1154 PATIENT: LUIS GUZMÁN UNIT #: [id number] ROOM #: P.0403 BED: A : 55 AGE: 67 SEX: M ATTEND: Rajesh Kilgore MD ADM AUTHOR: Ronnell Banerjee MD ATTE NTION *EDITS and/or ADDENDA must be made in Patient Keeper for this note. * * Edits and ammendments created in [employer] are not visible * * in Patient Keeper or the legal medical record (HPF). * -- OPERATION -- SURGERY START DATE/TIME: 2023-05-18 11:54 PRE-OPERATIVE DIAGNOSIS: See Description POST-OPERATIVE DIAGNOSIS: See Description NAME OF PROCEDURE: See Description SURGEON: RONNELL BANERJEE MD BORDERER(S): See Description ANESTHESIA: See Description ESTIMATED BLOOD LOSS: 10 ml's FINDINGS: See Description SPECIMEN(S) REMOVED AND/OR ALTERED: See Description COMPLICATION(S): See Description -- DESCRIPTION -- DESCRIPTION OF TECHNIQUE/PROCEDURE: Development Executive: Ronnell Banerjee MD Fellow: None Referring Physician: Dr. Wei Date of Procedure: 05/18/23 Procedure Start Time: 1099 Procedure End Time: 114 Patient Name: Luis Guzmán Patient Patient Date of : 55 Facility: [facility] Brief Clinical History: This is a 67yo M with a history of AF, SSS presenting for PPM. Implant Indication: Symptomatic Bradycardia (R00.1) Sick Sinus Syndrome (I49.5) Procedures Performed: Implantation of a dual chamber PPM (71540) Procedure was performed utilizing moderate sedation with split doses of IV Versed and fentanyl administered by a nurse trained in conscious sedation under the direct supervision of the performing physician. TOTAL INTRA SERVICE TIME: 45 minutes. Throughout the procedure, the patient was monitored by radiology nurse. The patient's vital signs were stable throughout procedure, including cardiac rhythm and oxygen saturation. Neurological checks were also performed during the procedure. Complications: None Specimens Removed: None Grafts or Implants: None Estimated blood loss: Minimal Blood Administered: None Condition: Stable Procedure Details: The patient was brought to the electrophysiology suite in the fasting state and was prepped and draped in the usual sterile fashion. A Time Out was held and the following information was confirmed/verified: Patient Name Patient Date of Medical Record Number Procedure Type Laterality Pertinent Medical Comorbidities Allergies Recent Laboratory Values Recent Imaging Results HOYT DEVICE WAS IMPLANTED Conscious sedation was obtained with intravenous Midazolam and Fentanyl and 2% Xylocaine was used as a local anesthetic. By the use of modified Seldinger technique and under direct ultrasound guidance of needle tip, two venipunctures were obtained in the axillary vein with a micropuncture needle and two 0.035" J-wires were introduced. Ultrasound images were stored locally on the ultrasound device. An incision was made in the left pectoral area inferior to the clavicle. Using a combination of sharp and blunt dissection with electrocautery the incision was carried down to the level of the pectoralis fascia and a pocket was created above the pectoralis muscle. The previous J wires were then harvested and two peel-away vascular sheaths were then placed. A ventricular pacing electrode was placed in the septal aspect in direct left bundle capture position. Adequate pacing and sensing was confirmed, the sheath was peeled away, and the lead was sewn into position with 2-0 silk pop-off suture. A right atrial lead was placed in the right atrial appendage, adequate pacing was confirmed, the sheath was peeled away, and the lead was sewn into position with 2-0 silk pop-off suture. Copious amounts of antibiotic solution were then used to irrigate the pocket. The generator was then connected to the leads, adequate connections of both leads to the generator were confirmed. Appropriate sensing, pacing impedance, and pacing thresholds were tested and verified through the device. Adequate hemostasis and lead placement were verified once again and then the pocket was closed with two layers of continuous 2.0 stratafix sutures and 4.0 stratafix at the surface with dermabond at skin level. The patient tolerated the procedure well. A sterile pressure dressing was applied. The patient's arm was immobilized and the patient was transferred from the lab in stable condition. CXR EKG Minocycline 100mg PO BID x 5d Pain medicine PRN Post-op instructions provided Will follow-up in 2 weeks for site check Ronnell Banerjee MD Cardiac Electrophysiology Signed in PatientKeeper by RONNELL BANERJEE MD on 05/18/23 at 11:56 at 1156 ATTE NTION *EDITS and/or ADDENDA must be made in Patient Keeper for this note. * * Edits and ammendments created in [employer] are not visible * * in Patient Keeper or the legal medical record ([facility]). * RPT #: [id number] END OF REPORT [facility] 2023-05-18 09:37:00 [facility] ([facility]) Cardiology Progress Notes REPORT #: [id number] REPORT STATUS: Signed DATE: 05/18/23 TIME: 936 PATIENT: LUIS GUZMÁN UNIT #: [id number] ROOM #: P.0403 BED: A : 55 AGE: 67 SEX: M ATTEND: Rajesh Kilgore MD ADM AUTHOR: Araceli Saucedo ATTE NTION *EDITS and/or ADDENDA must be made in Patient Keeper for this note. * * Edits and ammendments created in [employer] are not visible * * in Patient Keeper or the legal medical record ([facility]). * -- CO-SIGNATURE -- COMMENTS: Agree with above from Xi Saucedo, PA-C. I performed the examination and obtained the history in supervision of Araceli Saucedo. I concur with her findings with the following additions. PPM today. Signed in PatientKeeper by RONNELL BANERJEE MD on 05/20/23 at 21:13 -- ASSESSMENT AND PLAN -- PROBLEMS: 1: SSS (sick sinus syndrome) A/P: -No intracranial mass on MRI, findings show recent infarct -SSS with symptomatic bradycardia punctuated with AF episodes -Rates into the 40's -Would benefit from DC-PPM, anticipated this morning -Discussed in detail with patient at bedside, educational materials and folder given. He verbalized understanding and wishes to pursue 2: Atrial fibrillation A/P: - see above -- SUBJECTIVE -- CHIEF COMPLAINT: SSS HPI: 67yo man hx DMII, CVA, HTN, DLD, ESRD w/ fistula, HFrEF, CAD s/p CABG, atrial fibrillation. EP consulted for bradycardia, atrial fibrillation and atrial flutter. Review of MRI with neurology with no intracranial mass, findings show recent infarct. Has events of bradycardia 40s bpm with atrial fibrillation/flutter. PATIENT NARRATIVE: - No events overnight, in SR - Sitting up in chair, comfortable - SSS, DC PPM this morning -REVIEW OF SYSTEMS- GENERAL: See above -- OBJECTIVE -- VITALS (05/17 09:37 - 05/18 09:37): Temperature C: 36.8 (36.7 - 37.0) Pulse Rate 57 (52 - 67) Respiratory rate: 21 (12 - 32) Blood pressure: 159/72 (91/51 - 163/74) Blood pressure source: Monitor I/Os (05/17 07:00 - 05/18 07:00): Net -95 Intake 1,030 Output 1,125 -EXAM- GENERAL: Well developed, well nourished, in no apparent distress. HEAD: Normocephalic, atraumatic. EYES: PERRL, EOM intact EARS: TM's intact and clear, normal canals, grossly normal hearing. NOSE: No deformity, no discharge, no inflammation, no lesions. MOUTH: Oropharynx without deformities or lesions, normal mucosa.. LUNGS: Clear bilaterally with normal respiratory effort. HEART: Regular rate and rhythm, normal S1, S2, no murmurs, no rubs, no gallops, no clicks. ABDOMEN: Soft, non-tender, no organomegaly, no masses noted. EXTREMITIES: WWP, no edema. NEUROLOGICAL: No focal deficits, normal sensation, normal reflexes, normal coordination, normal muscle strength, normal tone. SKIN: Intact without significant lesions, or rashes. PSYCHIATRIC: Alert and oriented to time, person, place. Normal mood and affect, intact judgment and insight. -- DATA -- ALLERGIES [EXTERNAL] No Known Allergies - MEDICATIONS INSULIN GLARGINE 30 UNITS SUBQ BEDTIME DEXTROSE 50%-WATER 25 ML IV ASDIR PRN INSULIN LISPRO 5 UNITS SUBQ AC FERROUS SULFATE 325 MG PO BID LACTULOSE 30 ML PO BID PRN METOPROLOL TARTRATE 5 MG IV Q6H PRN carvediloL 25 MG PO Q12HR clopidogreL 75 MG PO DAILY FUROSEMIDE 20 MG PO QAM DOCUSATE SODIUM 100 MG PO BID ONDANSETRON HCL/PF 4 MG IV Q6H PRN AMIODARONE HCL 200 MG PO DAILY LOSARTAN POTASSIUM 25 MG PO DAILY GLUCAGON 1 MG IM ASDIR PRN FINASTERIDE 5 MG PO BEDTIME INSULIN LISPRO 0 UNITS SUBQ C MEALS HS ONDANSETRON 4 MG PO Q6H PRN ASPIRIN 81 MG PO DAILY ACETAMINOPHEN 650 MG PO Q4H PRN cloNIDine HCL 0.1 MG PO Q8H PRN NITROGLYCERIN 0.4 MG SL Q5M PRN IOPAMIDOL 76% 100 ML IV ONCE (PRN) SPIRONOLACTONE 25 MG PO DAILY TAMSULOSIN 0.4 MG PO DAILY ATORVASTATIN CALCIUM 40 MG PO BEDTIME LABS GLU BED (05/17/23 17:16) GLUBED 180 H GLU BED (05/17/23 11:23) GLUBED 271 H GLU BED (05/17/23 17:16) GLUBED 180 H GLU BED (05/17/23 11:23) GLUBED 271 H VITALS Temperature F: 05/18/23 09:00 05/18/23 08:00 05/18/23 07:00 05/18/23 05:40 05/18/23 04:00 05/18/23 03:00 05/18/23 02:00 05/18/23 01:00 05/18/23 00:31 05/18/23 00:00 Pulse Rate 05/18/23 09:00 57 05/18/23 08:00 61 05/18/23 07:00 55 05/18/23 05:40 05/18/23 04:00 61 05/18/23 03:00 60 05/18/23 02:00 58 05/18/23 01:00 65 05/18/23 00:31 05/18/23 00:00 52 Respiratory rate: 05/18/23 09:00 21 05/18/23 08:00 18 05/18/23 07:00 22 05/18/23 05:40 20 05/18/23 04:00 05/18/23 03:00 15 05/18/23 02:00 16 05/18/23 01:00 05/18/23 00:31 20 05/18/23 00:00 15 Blood pressure: 05/18/23 09:00 159 / 72 05/18/23 08:00 151 / 66 05/18/23 07:00 154 / 67 05/18/23 05:40 05/18/23 04:00 138 / 65 05/18/23 03:00 117 / 59 05/18/23 02:00 118 / 59 05/18/23 01:00 128 / 59 05/18/23 00:31 05/18/23 00:00 107 / 59 SPO2 %: 05/18/23 09:00 99 05/18/23 08:00 99 05/18/23 07:00 99 05/18/23 05:40 05/18/23 04:00 97 05/18/23 03:00 97 05/18/23 02:00 97 05/18/23 01:00 97 05/18/23 00:31 05/18/23 00:00 95 -- ATTESTATION -- TIME SPENT ON PATIENT CARE: - Direct - Counseling - Coordination of Care - > 50% of time spent on Counseling/Care Coordination CARE ACTIVITIES / CARE COORDINATION: - I have reviewed the history and repeated the gupta elements - I have seen and examined this patient - I have reviewed the progress in the clinical course since the last examination - I have discussed the patient's condition with other members of the care team ADDITIONAL DETAIL: Discussed with Dr Ronnell Banerjee Signed in PatientKeeper by Araceli aSucedo on 05/18/23 at 09:44 Cosigned by RONNELL BANERJEE MD on 05/20/23 at 21:13 at 2113 at 2113 ATTE NTION *EDITS and/or ADDENDA must be made in Patient Keeper for this note. * * Edits and ammendments created in [facility] are not visible * * in Patient Keeper or the legal medical record ([facility]). * RPT #: [id number] END OF REPORT [facility] 2023-05-18 08:04:00 [facility] ([facility]) Cardiology Progress Notes REPORT #: [id number] REPORT STATUS: Signed DATE: 05/18/23 TIME: 0804 PATIENT: LUIS GUZMÁN UNIT #: [id number] ROOM #: P.0403 BED: A : 55 AGE: 67 SEX: M ATTEND: Rajesh Kilgore MD ADM AUTHOR: Mckay Meyer ATTE NTION *EDITS and/or ADDENDA must be made in Patient Keeper for this note. * * Edits and ammendments created in [employer] are not visible * * in Patient Keeper or the legal medical record ([facility]). * -- CO-SIGNATURE -- COMMENTS: The patient was seen on rounds with ZOHRA Rosario. The patient has no complaints Examination demonstrates normal heart sounds and clear lung mcmanus. Impression and plan The patient is a 67-year-old gentleman with a history of coronary artery disease with previous bypass surgery on May 03. The patient had been admitted to [facility] with generalized fatigue and blood work demonstrated a borderline troponin and he was transferred here for further care and evaluation for his diplopia and aphasia. CT scan did not demonstrate any new lesions. MRI however revealed a subacute left temporal and occipital stroke. The patient is currently on dual antiplatelet therapy. -Status post dual-chamber pacemaker. Continue amiodarone Signed in PatientKeeper by JUAN M WEI MD on 06/19/23 at 11:52 -- ASSESSMENT AND PLAN -- PROBLEMS: 1: Acute weakness A/P: The patient is a 67-year-old gentleman (patient of Dr. Katya Cruz) has a PMHx of coronary artery disease (s/p CABG x2V on 05/03/23), h/o CVA (minimal left sided residual weakness), hyperlipidemia, hypertension, diabetes (insulin-dependent), neuropathy, AV fistula repair in the neck. On 04/28/23, he underwent selective coronary angiogram at [facility] for worsening fatigue and possibly chest discomfort and showed distal left main disease (90%), LAD (99%), ostial LCx (90%), RI (99%), OM1 (small, 80%). Echo showed an EF of 50-55%, and restrictive physiology with diastolic dysfunction. He was transferred here for urgent bypass surgery with Dr. Wilfrido Gray and had 2 Vessel CABG (WERNER-LAD and SVG-RI) on 04/2623. Post-op he went into atrial fibrillation with RVR, started on IV and PO amiodarone. He tested COVID positive, was asymptomatic. He was discharged on stable condition on 05/08/23. On 05/14/22, he presented at [facility] with complaint of generalized weakness and fatigue that started earlier that day after breakfast. He was found to be hypotensive. Blood work showed borderline troponin and lactic acid, and was suspected NSTEMI. He was transferred here to [facility] for higher level of care. The patient seen in the room, alert, oriented and in no acute distress. He states on 05/14/22 after eating breakfast had sudden onset of generalized weakness, blurry vision and "could not find the words to speak", loss of balance that lasted "short time". Patient is currently reporting right eye double vision, has aphasia, slight right facial drooping on examination and stuttering. STAT CTA head/neck ordered and neurology consulted. STAT CTA head/neck showed heterogenous area of white matter hypodensity and gyral irregularity at the left occipital lobe concerning for underlying infiltrative mass, prominent left basal vein of Max which is opacified similar to the cerebral arteries suggesting some underlying fistulous connection, however none is clearly identifiable. This may be related to the abnormality at the left occipital lobe as described above. - Dr. Bergman with neurology services following, MRI brain revealing large subacute left temporal and occipital stroke. Recommended cerebral angiogram as outpatient with his neurologist/neurosurgeon - Patient sees Dr. Andre Chanel (neurologist) and Dr. Asa Romo at [facility] (for h/o CVA) as outpatient 2: SSS (sick sinus syndrome) A/P: - S/p DC-PPM today by Dr. Banerjee - On PO amiodarone 200mg daily - Dr. Banerjee/Dieudonne with electrophysiology services following 3: Coronary artery disease A/P: - S/p CABG x 2V on 05/03/23 - Continue DAPT with aspirin and clopidogrel - Continue atorvastatin 40mg daily and carvedilol 25mg BID - Continue PO furosemide 20mg daily -- SUBJECTIVE -- CHIEF COMPLAINT: Acute weakness PATIENT NARRATIVE: S/p dual-chamber PPM earlier today. He denies complaints today. No acute events overnight. -REVIEW OF SYSTEMS- GENERAL: Negative for fever, malaise, fatigue. EYES: Negative for blurry vision. No diplopia. EARS/NOSE/THROAT: Negative for sore throat. No otalgia. No rhinorrhea. + right eye double vision RESPIRATORY: Negative for dyspnea or wheeze. No cough. CARDIOVASCULAR: Negative for chest pain or palpitations. No extremity swelling. GASTROINTESTINAL: Negative for abdominal pain or nausea. No emesis. No diarrhea. GENITOURINARY: Negative for dysuria, frequency, or urgency. No gross hematuria. MUSCULOSKELETAL: Negative for joint stiffness, pain, or arthralgias. SKIN: Negative for rashes. No pruritus. NEUROLOGICAL: Negative for headache. No vertigo. Denies paresthesias. + aphasia and minimal right facial drooping PSYCHIATRIC: Negative for specific complaints. -- OBJECTIVE -- VITALS (05/17 07:28 - 05/18 07:28): Temperature C: 37.0 (36.5 - 37.0) Pulse Rate 61 (52 - 73) Respiratory rate: 20 (12 - 32) Blood pressure: 138/65 (91/51 - 163/74) Blood pressure source: Monitor I/Os (05/17 07:00 - 05/18 07:00): Net -95 Intake 1,030 Output 1,125 -EXAM- OTHER: Constitutional: Well developed, well nourished patient, in no acute distress. Derm/Integumentary: Warm and dry with no rashes, sores, or lesions. HEENT: Eyes-sclera clear and white, symmetrical w/ no lag. ENT - Palate and gums pink, mucosa moist, no pallor/cyanosis. Neck: supple with no masses, no thyromegaly, No JVD. Respiratory: Clear to auscultation. Chest: Median sternotomy intact, no drainage Heart: S1S2+, Regular Rate and Rhythm, No murmurs, rubs, or gallops. + DC-PPM Gastrointestinal: + Bowel Sounds all quadrants. Soft, nontender with no masses or organomegaly; No HJR. Musculoskeletal: Equal strength in all extremities. No weakness. Neurology: Alert and oriented X 3. Calm, cooperative affect. No focal deficits. Extremities: + peripheral pulses. No clubbing, cyanosis. No lower extremity edema. -- DATA -- MEDICATIONS INSULIN GLARGINE 30 UNITS SUBQ BEDTIME DEXTROSE 50%-WATER 25 ML IV ASDIR PRN INSULIN LISPRO 5 UNITS SUBQ AC FERROUS SULFATE 325 MG PO BID LACTULOSE 30 ML PO BID PRN METOPROLOL TARTRATE 5 MG IV Q6H PRN carvediloL 25 MG PO Q12HR clopidogreL 75 MG PO DAILY FUROSEMIDE 20 MG PO QAM DOCUSATE SODIUM 100 MG PO BID ONDANSETRON HCL/PF 4 MG IV Q6H PRN AMIODARONE HCL 200 MG PO DAILY LOSARTAN POTASSIUM 25 MG PO DAILY GLUCAGON 1 MG IM ASDIR PRN FINASTERIDE 5 MG PO BEDTIME INSULIN LISPRO 0 UNITS SUBQ C MEALS HS ONDANSETRON 4 MG PO Q6H PRN ASPIRIN 81 MG PO DAILY ACETAMINOPHEN 650 MG PO Q4H PRN cloNIDine HCL 0.1 MG PO Q8H PRN NITROGLYCERIN 0.4 MG SL Q5M PRN IOPAMIDOL 76% 100 ML IV ONCE (PRN) SPIRONOLACTONE 25 MG PO DAILY TAMSULOSIN 0.4 MG PO DAILY ATORVASTATIN CALCIUM 40 MG PO BEDTIME LABS GLU BED (05/17/23 17:16) GLUBED 180 H GLU BED (05/17/23 11:23) GLUBED 271 H GLU BED (05/17/23 08:00) GLUBED 160 H -- ATTESTATION -- CARE ACTIVITIES / CARE COORDINATION: - I have reviewed the history and repeated the gupta elements - I have seen and examined this patient - I have reviewed the progress in the clinical course since the last examination - I have discussed the patient's condition with other members of the care team ADDITIONAL DETAIL: Plan of care discussed with Dr. Juan M Wei Signed in PatientKeeper by Mckay Meyer on 05/18/23 at 19:31 Cosigned by JUAN M WEI MD on 06/19/23 at 11:52 at 1152 at 1152 ATTE NTION *EDITS and/or ADDENDA must be made in Patient Keeper for this note. * * Edits and ammendments created in [facility] are not visible * * in Patient Keeper or the legal medical record ([facility]). * [facility] #: [id number] END OF REPORT [facility] 2023-05-17 22:31:00 [id number] [facility] [address] [place], [place] [id number] PATIENT NAME: LUIS GUZMÁN ADMIT DATE: 05/14/23 ACCOUNT NO: [id number] ROOM NO: [id number] AGE: 67 REPORT TYPE: eECHOCARDIOGRAM REPORT SEX: M ADMITTING PHYSICIAN: Rajesh Kilgore MD ATTENDING PHYSICIAN: Rajesh Kilgore MD *[facility]* [address] [place] [address] Transthoracic Echocardiogram Patient: Luis Guzmán Study Date: 05/16/2023 BP: 109 / 64 URN: [id number] Location: : 1955 Age: 67 Gender: M Height: 26.4 in / 67 cm Weight: 167.6 lb / 76 kg BMI/BSA: 169.3 kg/m 2 / 1.32 m 2 *Ordering Physician: * Mckay Meyer *Interpreting Physician: * Juan M Wei M.D. *College Advisor: * Анна Burgess Indications: S/P CABG. Study data: Transthoracic echocardiogram. Procedure: A transthoracic echocardiogram was performed. Images were obtained using a [employer] E Portable cardiac ultrasound machine. Image quality was fair. Complete 2D, complete spectral Doppler, and color Doppler. Location: Bedside. Patient status: Inpatient. Patient room number: 403. Study status: Routine. Heart rate: 61 bpm. Findings Left ventricle: The cavity size is normal. Wall thickness is normal. Systolic function is normal. The estimated ejection fraction is 55-60%. Wall motion is normal; there are no regional wall motion abnormalities. Left ventricular diastolic function parameters are normal. PATIENT NAME: LUIS GUZMÁN Right ventricle: The cavity size is normal. Systolic function is normal. Left atrium: The atrium is mildly dilated. Right atrium: The atrium is normal in size. Aorta: Aortic root: The root is normal-sized. Aortic valve: The valve is structurally normal. The valve is trileaflet. There is no evidence of stenosis. There is no regurgitation. Mitral valve: The valve is structurally normal. There is no evidence of stenosis. There is no regurgitation. Tricuspid valve: The valve is structurally normal. There is mild regurgitation. Pulmonic valve: The valve is structurally normal. There is no regurgitation. Pericardium: There is no pericardial effusion. Pulmonary arteries: The main pulmonary artery is normal-sized. Systemic veins: Inferior vena cava: The IVC is normal-sized. Measurements Left ventricle Value Ref 05/04/2023 JESSICA, LAX 4.4 cm 4.2 - 5.8 4.8 ESD, LAX 3.8 cm 2.5 - 4.0 3.7 FS, LAX 13 % 22 IVS, ED 0.9 cm 0.6 - 1.0 1.4 IVS, ES 1.3 cm --------- 1.7 ESD 3.8 cm 2.5 - 4.0 3.7 FS 13 % 22 PW, ED 0.9 cm 0.6 - 1.0 1.4 PW, ES 1.3 cm --------- 1.7 IVS/PW, ED 1.07 --------- 1.05 EF 29 % 52 - 72 45 EF, MM on 2D Teich. 29 % >=55 45 E', lat kai, TDI 7.4 cm/sec >=10.0 9.3 E/e', lat kai, TDI 9 <=13 11 E', med kai, TDI 3.5 cm/sec >=7.0 7.0 E/e', med kai, TDI 20 --------- 15 E', avg, TDI 5.5 cm/sec --------- 8.2 E/e', avg, TDI 13 <=14 13 LVOT Value Ref 05/04/2023 Diam, S 1.91 cm --------- 2.06 Area 2.9 cm 2 --------- 3.3 Peak neha, S 0.84 m/sec --------- 0.88 Mean neha, S 0.59 m/sec --------- 0.57 VTI, S 15.1 cm --------- 14.8 Peak grad, S 3 mm Hg --------- 3 Mean grad, S 2 mm Hg --------- 2 SV 43 ml --------- 50 SV/bsa 33 ml/m 2 --------- 26 Right ventricle Value Ref 05/04/2023 JESSICA, LAX 3.5 cm --------- PATIENT NAME: LUIS GUZMÁNEL JESSICA 3.6 cm --------- Left atrium Value Ref 05/04/2023 LA ID 4.6 cm --------- 4.6 AP dim, ES 4.6 cm 3.0 - 4.0 4.6 AP dim ES, LAX 4.6 cm 3.0 - 4.0 4.6 SI dim ES, LAX 4.6 cm --------- 4.6 Vol/bsa, S 54 ml/m 2 16 - 34 33 Vol, ES, 2-p 75 ml --------- 65 Vol/bsa, ES, 2-p 57 ml/m 2 16 - 34 34 LA/Ao root ratio 1.4 --------- 1.14 AP dim, ES MM 4.6 cm 3.0 - 4.0 4.6 LA/Ao root ratio, MM 1 --------- 1 Aortic valve Value Ref 05/04/2023 Peak v, S 2.1 m/sec --------- 1.5 Mean v, S 1.24 m/sec --------- 1 VTI, S 40.4 cm --------- 26.0 Mean grad, S 7 mm Hg --------- 5 Peak grad, S 16.9 mm Hg --------- 9.1 LVOT/AV, VTI ratio 0.37 --------- 0.57 EMILY, VTI 1.19 cm 2 --------- 1.91 LVOT/AV, Vpeak ratio 0.41 --------- 0.58 EMILY, Vmax 1.22 cm 2 --------- 1.94 Mitral valve Value Ref 05/04/2023 Mean v, D 0.53 m/sec --------- 0.69 Peak E 0.05 m/sec --------- 0.08 Peak A 0.69 m/sec --------- 0.48 VTI leaflet coapt 36.7 cm --------- 31.0 MiV/LVOT VTI 2.4 --------- 2.1 Decel time 246 ms --------- 164 Mean grad, D 1 mm Hg --------- 2 Peak grad, D 3.3 mm Hg --------- 5.2 Peak E/A ratio 1.02 --------- 2.19 Tricuspid valve Value Ref 05/04/2023 TR peak v 1.5 m/sec <=2.8 2.7 Peak RV-RA grad, S 9 mm Hg --------- 29 Aortic root Value Ref 05/04/2023 Root diam 3.3 cm 2.2 - 3.6 4.0 Root diam, ED MM 4.6 cm --------- 4.6 Conclusions Summary: 1. Left ventricle: The cavity size is normal. Wall thickness is normal. Systolic function is normal. The estimated ejection fraction is 55-60%. Wall motion is normal; there are no regional wall motion abnormalities. Left ventricular diastolic function parameters are normal. 2. Left atrium: The atrium is mildly dilated. PATIENT NAME: LUIS GUZMÁN Electronically signed by Juan M Wei M.D. 05/17/2023 22:31 at 2231 PATIENT NAME: LUIS GUZMÁN [facility] 2023-05-17 20:21:00 [facility] ([facility]) Cardiology Progress Notes REPORT #: [id number] REPORT STATUS: Signed DATE: 05/17/23 TIME: 2020 PATIENT: LUIS GUZMÁN UNIT #: [id number] ROOM #: P.0403 BED: A : 55 AGE: 67 SEX: M ATTEND: Rajesh Kilgore MD ADM AUTHOR: Ronnell Banerjee MD ATTE NTION *EDITS and/or ADDENDA must be made in Patient Keeper for this note. * * Edits and ammendments created in [employer] are not visible * * in Patient Keeper or the legal medical record (HPF). * -- ASSESSMENT AND PLAN -- PROBLEMS: 1: Atrial fibrillation A/P: No intracranial mass on MRI, findings show recent infarct Continue to have symptomatic bradycardia punctuated with AF episodes Rates into the 40's SSS Would benefit from DC-PPM Tentatively planned for tomorrow AM NPO @ [facility] -- SUBJECTIVE -- PATIENT NARRATIVE: Continues to have bouts of bradycardia into 40's punctuated with atrial fibrillation/atrial flutter. -- OBJECTIVE -- VITALS (05/16 20:21 - 05/17 20:21): Temperature C: 36.7 (36.5 - 36.9) Pulse Rate 63 (54 - 73) Respiratory rate: 25 (11 - 32) Blood pressure: 152/73 (91/51 - 163/79) Blood pressure source: Monitor I/Os (05/16 07:00 - 05/17 07:00): Net -220 Intake 730 Output 950 -EXAM- GENERAL: Well developed, well nourished, in no apparent distress. EYES: PERRL, EOM intact LUNGS: Clear bilaterally with normal respiratory effort. HEART: Regular rate and rhythm, normal S1, S2, no murmurs, no rubs, no gallops, no clicks. ABDOMEN: Soft, non-tender, no organomegaly, no masses noted. EXTREMITIES: WWP, no edema. -- DATA -- MEDICATIONS INSULIN GLARGINE 30 UNITS SUBQ BEDTIME DEXTROSE 50%-WATER 25 ML IV ASDIR PRN INSULIN LISPRO 5 UNITS SUBQ AC FERROUS SULFATE 325 MG PO BID LACTULOSE 30 ML PO BID PRN METOPROLOL TARTRATE 5 MG IV Q6H PRN carvediloL 25 MG PO Q12HR clopidogreL 75 MG PO DAILY FUROSEMIDE 20 MG PO QAM DOCUSATE SODIUM 100 MG PO BID ONDANSETRON HCL/PF 4 MG IV Q6H PRN AMIODARONE HCL 200 MG PO DAILY LOSARTAN POTASSIUM 25 MG PO DAILY GLUCAGON 1 MG IM ASDIR PRN FINASTERIDE 5 MG PO BEDTIME INSULIN LISPRO 0 UNITS SUBQ C MEALS HS ONDANSETRON 4 MG PO Q6H PRN ASPIRIN 81 MG PO DAILY ACETAMINOPHEN 650 MG PO Q4H PRN cloNIDine HCL 0.1 MG PO Q8H PRN NITROGLYCERIN 0.4 MG SL Q5M PRN IOPAMIDOL 76% 100 ML IV ONCE (PRN) SPIRONOLACTONE 25 MG PO DAILY TAMSULOSIN 0.4 MG PO DAILY ATORVASTATIN CALCIUM 40 MG PO BEDTIME LABS GLU BED (05/17/23 17:16) GLUBED 180 H GLU BED (05/17/23 11:23) GLUBED 271 H GLU BED (05/17/23 08:00) GLUBED 160 H Signed in PatientKeeper by RONNELL BANERJEE MD on 05/17/23 at 20:30 at 2030 ATTE NTION *EDITS and/or ADDENDA must be made in Patient Keeper for this note. * * Edits and ammendments created in [facility] are not visible * * in Patient Keeper or the legal medical record (HPF). * [facility] #: [id number] END OF REPORT [facility] 2023-05-17 11:33:00 [facility] ([facility]) Progress Note REPORT #: [id number] REPORT STATUS: Signed DATE: 05/17/23 TIME: 1133 PATIENT: LUIS GUZMÁN UNIT #: [id number] ROOM #: P.0403 BED: A : 55 AGE: 67 SEX: M ATTEND: Rajesh Kilgore MD ADM AUTHOR: Nadiya Bergman MD ATTE NTION *EDITS and/or ADDENDA must be made in Patient Keeper for this note. * * Edits and ammendments created in [employer] are not visible * * in Patient Keeper or the legal medical record (HPF). * -- ASSESSMENT AND PLAN -- GENERAL ASSESSMENT: # 67-year-old gentleman with extensive past medical history, now s/p CABG on 05/03 # Presents with atypical diplopia, on 05/14 # Found to have left occipital infiltrative process on CT head, alongside with opacification of the left basal vein of Max # History of "mini strokes" in the past Hypertension Diabetes #Afib, anticoagulation is indicated from neurological standpoint, will defer to cardiology, if started on anticoagulation, may discontinue antiplatelets. ## Updated the patient and his family on the results of MRI brain, revealing large subacute left temporal and occipital stroke, explaining his symptoms, likely related to his multiple vascular risk factors listed above. He is already established with [facility], with both Drs. Romo and Darío, and was in fact scheduled to obtain cerebral angiography this week, asked him to follow-up with them as soon as he is discharged for further recommendations. Continue aspirin and statin at this point, also on clopidogrel per cardiology Discussed with primary team Cardiology on board LDL 36 A1c 8.2 Thank you for allowing us to participate in the care of your patient. Please do not hesitate to call Neurology with any further questions or changes in neurological status. -- SUBJECTIVE -- CHIEF COMPLAINT: Diplopia, brain mass HPI: No acute events overnight. -- OBJECTIVE -- VITALS (05/16 11:33 - 05/17 11:33): Temperature C: 36.5 (36.5 - 36.9) Pulse Rate 57 (56 - 74) Respiratory rate: 16 (11 - 34) Blood pressure: 96/51 (96/51 - 171/79) Blood pressure source: Monitor I/Os (05/16 07:00 - 05/17 07:00): Net -220 Intake 730 Output 950 -- DATA -- MEDICATIONS INSULIN GLARGINE 30 UNITS SUBQ BEDTIME DEXTROSE 50%-WATER 25 ML IV ASDIR PRN INSULIN LISPRO 5 UNITS SUBQ AC FERROUS SULFATE 325 MG PO BID LACTULOSE 30 ML PO BID PRN METOPROLOL TARTRATE 5 MG IV Q6H PRN carvediloL 25 MG PO Q12HR clopidogreL 75 MG PO DAILY FUROSEMIDE 20 MG PO QAM DOCUSATE SODIUM 100 MG PO BID ONDANSETRON HCL/PF 4 MG IV Q6H PRN AMIODARONE HCL 200 MG PO DAILY LOSARTAN POTASSIUM 25 MG PO DAILY GLUCAGON 1 MG IM ASDIR PRN FINASTERIDE 5 MG PO BEDTIME INSULIN LISPRO 0 UNITS SUBQ C MEALS HS ONDANSETRON 4 MG PO Q6H PRN ASPIRIN 81 MG PO DAILY ACETAMINOPHEN 650 MG PO Q4H PRN cloNIDine HCL 0.1 MG PO Q8H PRN NITROGLYCERIN 0.4 MG SL Q5M PRN IOPAMIDOL 76% 100 ML IV ONCE (PRN) SPIRONOLACTONE 25 MG PO DAILY TAMSULOSIN 0.4 MG PO DAILY ATORVASTATIN CALCIUM 40 MG PO BEDTIME LABS GLU BED (05/17/23 08:00) GLUBED 160 H GLU BED (05/16/23 19:42) GLUBED 274 H GLU BED (05/16/23 16:50) GLUBED 384 *H TEST RESULTS MRI BRAIN W amp;WO CONT (05/16/23 09:30) IMPRESSION: 1. 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 This includes involvement of the left visual cortex and a right homonymous hemianopsia would be expected. 2. 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 3. No space-occupying intracranial mass is otherwise identified. MRV HEAD WO CONT (05/16/23 09:32) IMPRESSION: 1. No evidence of dural venous thrombosis identified. 2. Decreased venous drainage at the left transverse sinus possibly related to mass effect. 3. Perhaps follow-up with CTA with delayed venous images could be of additional diagnostic benefit. ADDITIONAL COMMENTS: Neuro-imaging was directly viewed by me, and agree with formal report as noted above Signed in PatientKeeper by Nadiya Bergman MD on 05/17/23 at 12:10 at 1210 ATTE NTION *EDITS and/or ADDENDA must be made in Patient Keeper for this note. * * Edits and ammendments created in [facility] are not visible * * in Patient Keeper or the legal medical record ([facility]). * RPT #: [id number] END OF REPORT [facility] 2023-05-17 10:27:00 [facility] ([facility]) Hospitalist Progress Note REPORT #: [id number] REPORT STATUS: Signed DATE: 05/17/23 TIME: 1027 PATIENT: LUIS GUZMÁN UNIT #: [id number] ROOM #: P.0403 BED: A : 55 AGE: 67 SEX: M ATTEND: Rajesh Kilgore MD [facility] AUTHOR: Rajesh Kilgore MD ATTE NTION *EDITS and/or ADDENDA must be made in Patient Keeper for this note. * * Edits and ammendments created in [employer] are not visible * * in Patient Keeper or the legal medical record (HPF). * -- ASSESSMENT AND PLAN -- GENERAL ASSESSMENT: ASSESSMENT AND PLAN: 1. Acute weakness and tiredness, etiology likely related to acute/subacute CVA. also, recent Covid positivity, which may be contributory. 1. Heterogenous area of white matter hypodensity and gyral irregularity at the left occipital lobe concerning for underlying infiltrative mass. Recommend further evaluation with MRI brain with and without contrast. 2. Prominent left basal vein of Max which is opacified similar to the cerebral arteries suggesting some underlying fistulous connection, however none is clearly identifiable. This may be related to the abnormality at the left occipital lobe as described above. 3. No aneurysm, occlusion, or dissection. No intracranial hemorrhage is seen. *MRI shows Large subacute infarct involving the left occipital temporal region of the posterior cerebral artery distribution. This includes involvement of the left visual cortex and a right homonymous hemianopsia would be expected. 2. 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 3. No space-occupying intracranial mass 2. Borderline elevated troponin, likely sequelae of recent multivessel CABG. H/O CABG X 2, Left internal mammary artery bypass to the left anterior descending and first diagonal coronary arteries (sequential graft) Reversed saphenous vein graft to the ramus intermedius coronary artery by Dr Wilfrido Gray 05/03/23. CAD appears to be clinically stable. Continue guideline directed medical therapy including beta-blockers statins aspirin and clopidogrel. 3. Diabetes mellitus type 2, not well controlled. Hemoglobin A1c is 8.2. Continue long-acting and short-acting insulins. 4. Hypertension, Continue current home medication regimen of beta-blockers and ARB. 5. Benign prostatic hypertrophy. Continue finasteride and tamsulosin. 6. History of cerebrovascular accident, with minimal left-sided residual weakness. 7. Chronic kidney disease stage II. 8. Anemia. 9. Lactic acidosis, transient, etiology unclear. No definite evidence of infection or sepsis. 10. Leukocytosis, reactive. 11. COVID positivity, recent. 12. Atrial fibrillation, perioperative. Converted to sinus rhythm with amiodarone. He has already been loaded with amiodarone, continue maintenance dose 200 mg daily. He is not on DOAC because of very recent CABG. 13. Elevated BNP, no definite evidence of CHF. Gentle diuresis. 14. Tachybradycardia, likely SSS. as per EP, PPM 05/18. ADDITIONAL COMMENTS: Large subacute infarct involving the left occipital temporal region of the posterior cerebral artery distribution. This includes involvement of the left visual cortex and a right homonymous hemianopsia would be expected. 2. 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 3. No space-occupying intracranial mass -for PPM 05/18. -- SUBJECTIVE -- HPI: This 67-year-old gentleman has a past medical history significant for insulin-dependent diabetes with neuropathy, CVA, hypertension, hyperlipidemia and AV fistula repair in the neck, had complaints of progressive fatigue and tiredness and was recently admitted to an outside hospital with a viral illness/pneumonia. Troponin was found to be elevated and echocardiogram showed dilated cardiomyopathy and wall motion abnormalities. The patient underwent selective coronary angiogram by Dr. Katya Cruz on 04/28/2023 which showed critical distal left main disease involving the origin of the left anterior descending, 99%, distal left main 90%, ostium in origin of the left circumflex 90% and a big ramus intermedius with 99% stenosis, first obtuse marginal is small with 80% focal disease, left ventricular ejection fraction 50-55% with anteroapical hypokinesis and end-diastolic pressure of 25. He was admitted to [facility] and on 05/03/2023, and underwent Urgent CABG X 2 using cardiopulmonary bypass Left internal mammary artery bypass to the left anterior descending and first diagonal coronary arteries (sequential graft) Reversed saphenous vein graft to the ramus intermedius coronary artery by Dr Wilfrido Gray. Postoperatively he developed atrial fibrillation with rapid ventricular response requiring IV and oral amiodarone. He also was found to have COVID positivity but was essentially asymptomatic from that. He was discharged home in stable condition on 05/08/2023. He presented to [facility] on 05/14/2023 with complaints of generalized weakness and fatigue that started after breakfast on the day of presentation. He was reportedly hypotensive upon presentation and his troponin was borderline elevated as well as his lactic acid. He received aspirin at the outside hospital. He was transferred to [facility] for suspected non-ST segment elevation myocardial infarction. Upon arrival his symptoms of generalized weakness had already improved and his blood pressure had stabilized. PATIENT NARRATIVE: 05/15: Today the patient indicated to the nurse that on the day of admission, 05/14, he had actually experienced disorientation, along with blurred and double vision and "could not find the words to speak". He also said that he did not remember having told anybody in the hospital about these symptoms. He is now reporting some double vision specially in the right eye and having aphasia, and stuttering. There is minimal right facial droop on evaluation. He has a previous history of cerebrovascular accident with minimal left sided residual weakness. Stat CT scan and CT angiogram of the head and neck 05/15/22 show: 1. Heterogenous area of white matter hypodensity and gyral irregularity at the left occipital lobe concerning for underlying infiltrative mass. Recommend further evaluation with MRI brain with and without contrast. 2. Prominent left basal vein of Max which is opacified similar to the cerebral arteries suggesting some underlying fistulous connection, however none is clearly identifiable. This may be related to the abnormality at the left occipital lobe as described above. 3. No aneurysm, occlusion, or dissection. No intracranial hemorrhage is seen. Neurology consultation, Dr Nadiya Bergman. pt says that he sees neurologist Dr Andre Chanel and neurosurgeon Dr Asa Romo at [facility] (for his h/o CVA) He also has atrial fibrillation with moderate ventricular response, down to bradycardia and sinus rhythm at times. Discussed with Dr. Keagan Heath. 05/16: MRI brain w/wo: 1. 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 This includes involvement of the left visual cortex and a right homonymous hemianopsia would be expected. 2. 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 3. No space-occupying intracranial mass is otherwise identified. -Also seen by EP services. Bradycardia lowest, 50s. Continue amiodarone for now. No immediate need for pacemaker placement. Avoid other potentially torsadogenic agents i.e. sotalol. 05/17: No acute events overnight. No chest pain or shortness of breath. No new weakness. As per neurology he may be okay for anticoagulation May 22. Discussed with EP, plan for permanent pacemaker 05/18. echo shows: 1. Left ventricle: The cavity size is normal. Wall thickness is normal. Systolic function is normal. The estimated ejection fraction is 55-60%. Wall motion is normal; there are no regional wall motion abnormalities. Left ventricular diastolic function parameters are normal. 2. Left atrium: The atrium is mildly dilated. -REVIEW OF SYSTEMS- GENERAL: weakness, fatigue EYES: Negative for blurry vision. No diplopia. EARS/NOSE/THROAT: Negative for sore throat. No otalgia. No rhinorrhea. RESPIRATORY: Negative for dyspnea or wheeze. No cough. CARDIOVASCULAR: Negative for chest pain or palpitations. No extremity swelling. GASTROINTESTINAL: Negative for abdominal pain or nausea. No emesis. No diarrhea. GENITOURINARY: Negative for dysuria, frequency, or urgency. No gross hematuria. MUSCULOSKELETAL: Negative for joint stiffness, pain, or arthralgias. SKIN: Negative for rashes. No pruritus. NEUROLOGICAL: Difficulty finding words, stuttering, double vision in the right eye. ENDOCRINE: Negative for cold intolerance, heat intolerance, polyphagia, polydipsia, polyuria, weight change, fatigue. HEMATALOGIC / LYMPHORETICULAR: Negative for excessive bleeding, unusual masses. -- OBJECTIVE -- VITALS (05/16 10:27 - 05/17 10:27): Temperature C: 36.5 (36.5 - 36.9) Pulse Rate 73 (56 - 74) Respiratory rate: 23 (11 - 34) Blood pressure: 96/53 (96/53 - 171/79) Blood pressure source: Monitor I/Os (05/16 07:00 - 05/17 07:00): Net -220 Intake 730 Output 950 -EXAM- GENERAL: GENERAL: Elderly male, NAD. VITAL SIGNS: Weight is 78.2 kilograms. Body mass index 27. HEENT: Head is atraumatic. Pupils are reactive to light and accommodation. Extraocular muscles intact. NECK: Supple. No thyromegaly. No JVD. CARDIOVASCULAR: Regular rate and rhythm. CHEST: sternotomy. 2/2 CTs removed. LUNGS: Clear to auscultation. ABDOMEN: Soft, nontender. EXTREMITIES: No edema, cyanosis or clubbing. Pedal pulses palpable. NEUROLOGIC: Minimal chronic left-sided weakness. Intermittent aphasia. -- DATA -- MEDICATIONS INSULIN GLARGINE 30 UNITS SUBQ BEDTIME DEXTROSE 50%-WATER 25 ML IV ASDIR PRN INSULIN LISPRO 5 UNITS SUBQ AC FERROUS SULFATE 325 MG PO BID LACTULOSE 30 ML PO BID PRN METOPROLOL TARTRATE 5 MG IV Q6H PRN carvediloL 25 MG PO Q12HR clopidogreL 75 MG PO DAILY FUROSEMIDE 20 MG PO QAM DOCUSATE SODIUM 100 MG PO BID ONDANSETRON HCL/PF 4 MG IV Q6H PRN AMIODARONE HCL 200 MG PO DAILY [place]ARTAN POTASSIUM 25 MG PO DAILY GLUCAGON 1 MG IM ASDIR PRN FINASTERIDE 5 MG PO BEDTIME INSULIN LISPRO 0 UNITS SUBQ C MEALS HS ONDANSETRON 4 MG PO Q6H PRN ASPIRIN 81 MG PO DAILY ACETAMINOPHEN 650 MG PO Q4H PRN cloNIDine HCL 0.1 MG PO Q8H PRN NITROGLYCERIN 0.4 MG SL Q5M PRN IOPAMIDOL 76% 100 ML IV ONCE (PRN) SPIRONOLACTONE 25 MG PO DAILY TAMSULOSIN 0.4 MG PO DAILY ATORVASTATIN CALCIUM 40 MG PO BEDTIME LABS GLU BED (05/17/23 08:00) GLUBED 160 H GLU BED (05/16/23 19:42) GLUBED 274 H GLU BED (05/16/23 16:50) GLUBED 384 *H GLU BED (05/16/23 11:09) GLUBED 337 *H -- QUALITY -- -MEDICATIONS- - I attest that the foregoing medication list in the medical record is true, accurate, and complete to the best of my knowledge. -- ATTESTATION -- CARE ACTIVITIES / CARE COORDINATION: - I have reviewed the history and repeated the gupta elements - I have seen and examined this patient - I have reviewed the progress in the clinical course since the last examination - I have discussed the patient's condition with other members of the care team Signed in PatientKeeper by Rajesh Kilgore MD on 05/17/23 at 23:00 at 2300 ATTE NTION *EDITS and/or ADDENDA must be made in Patient Keeper for this note. * * Edits and ammendments created in [employer] are not visible * * in Patient Keeper or the legal medical record ([facility]PF). * RPT #: [id number] END OF REPORT [facility] 2023-05-17 08:07:00 [facility] ([facility]) Cardiology Progress Notes REPORT #: [id number] REPORT STATUS: Signed DATE: 05/17/23 TIME: 806 PATIENT: LUIS GUZMÁN UNIT #: [id number] ROOM #: P.0403 BED: A : 55 AGE: 67 SEX: M ATTEND: Rajesh Kilgore MD ADM AUTHOR: Mckay Meyer ATTE NTION *EDITS and/or ADDENDA must be made in Patient Keeper for this note. * * Edits and ammendments created in [employer] are not visible * * in Patient Keeper or the legal medical record (HPF). * -- CO-SIGNATURE -- COMMENTS: The patient was seen on rounds with ZOHRA Rosario. The patient has no complaints Examination demonstrates normal heart sounds and clear lung mcmanus. Impression and plan The patient is a 67-year-old gentleman with a history of coronary artery disease with previous bypass surgery on May 03. The patient had been admitted to [facility] with generalized fatigue and blood work demonstrated a borderline troponin and he was transferred here for further care and evaluation for his diplopia and aphasia. CT scan did not demonstrate any new lesions. MRI however revealed a subacute left temporal and occipital stroke.The patient is currently on dual antiplatelet therapy. The patient has been having sick sinus syndrome and there is an issue of whether this came from his atrial fibrillation. Signed in PatientKeeper by JUAN M WEI MD on 06/19/23 at 11:51 -- ASSESSMENT AND PLAN -- PROBLEMS: 1: Acute weakness A/P: The patient is a 67-year-old gentleman (patient of Dr. Katya Cruz) has a PMHx of coronary artery disease (s/p CABG x2V on 05/03/23), h/o CVA (minimal left sided residual weakness), hyperlipidemia, hypertension, diabetes (insulin-dependent), neuropathy, AV fistula repair in the neck. On 04/28/23, he underwent selective coronary angiogram at [facility] for worsening fatigue and possibly chest discomfort and showed distal left main disease (90%), LAD (99%), ostial LCx (90%), RI (99%), OM1 (small, 80%). Echo showed an EF of 50-55%, and restrictive physiology with diastolic dysfunction. He was transferred here for urgent bypass surgery with Dr. Wilfrido Gray and had 2 Vessel CABG (WERNER-LAD and SVG-RI) on 04/2623. Post-op he went into atrial fibrillation with RVR, started on IV and PO amiodarone. He tested COVID positive, was asymptomatic. He was discharged on stable condition on 05/08/23. On 05/14/22, he presented at [facility] with complaint of generalized weakness and fatigue that started earlier that day after breakfast. He was found to be hypotensive. Blood work showed borderline troponin and lactic acid, and was suspected NSTEMI. He was transferred here to [facility] for higher level of care. The patient seen in the room, alert, oriented and in no acute distress. He states on 05/14/22 after eating breakfast had sudden onset of generalized weakness, blurry vision and "could not find the words to speak", loss of balance that lasted "short time". Patient is currently reporting right eye double vision, has aphasia, slight right facial drooping on examination and stuttering. STAT CTA head/neck ordered and neurology consulted. STAT CTA head/neck showed heterogenous area of white matter hypodensity and gyral irregularity at the left occipital lobe concerning for underlying infiltrative mass, prominent left basal vein of Max which is opacified similar to the cerebral arteries suggesting some underlying fistulous connection, however none is clearly identifiable. This may be related to the abnormality at the left occipital lobe as described above. - Dr. Bergman with neurology services following, MRI brain revealing large subacute left temporal and occipital stroke. Recommended cerebral angiogram as outpatient with his neurologist/neurosurgeon - Patient sees Dr. Andre Chanel (neurologist) and Dr. Asa Romo at [facility] (for h/o CVA) as outpatient 2: Atrial fibrillation/sick sinus syndrome A/P: - Atrial fibrillation, to sinus rhythm and down to bradycardia sometimes, asymptomatic - On PO amiodarone 200mg daily - Dr. Bro/Chriss with electrophysiology services following, appreciate input 3: Coronary artery disease A/P: - S/p CABG x 2V on 05/03/23 - On DAPT with aspirin and clopidogrel - On atorvastatin 40mg daily and carvedilol 25mg BID - On PO furosemide 20mg daily -- SUBJECTIVE -- CHIEF COMPLAINT: Acute weakness PATIENT NARRATIVE: Out of bed and in chair. He denies chest pain, shortness of breath, palpitations. He states his right eye double vision is somewhat better. No acute events overnight. -REVIEW OF SYSTEMS- GENERAL: Negative for fever, malaise, fatigue. EYES: Negative for blurry vision. No diplopia. EARS/NOSE/THROAT: Negative for sore throat. No otalgia. No rhinorrhea. + right eye double vision RESPIRATORY: Negative for dyspnea or wheeze. No cough. CARDIOVASCULAR: Negative for chest pain or palpitations. No extremity swelling. GASTROINTESTINAL: Negative for abdominal pain or nausea. No emesis. No diarrhea. GENITOURINARY: Negative for dysuria, frequency, or urgency. No gross hematuria. MUSCULOSKELETAL: Negative for joint stiffness, pain, or arthralgias. SKIN: Negative for rashes. No pruritus. NEUROLOGICAL: Negative for headache. No vertigo. Denies paresthesias. + aphasia and minimal right facial drooping PSYCHIATRIC: Negative for specific complaints. -- OBJECTIVE -- VITALS (05/16 06:54 - 05/17 06:54): Temperature C: 36.5 (36.5 - 36.9) Pulse Rate 59 (56 - 74) Respiratory rate: 20 (11 - 34) Blood pressure: 132/63 (105/56 - 171/79) Blood pressure source: Monitor I/Os (05/15 07:00 - 05/16 07:00): Net -515 Intake 710 Output 1,225 -EXAM- OTHER: Constitutional: Well developed, well nourished patient, in no acute distress. Derm/Integumentary: Warm and dry with no rashes, sores, or lesions. HEENT: Eyes-sclera clear and white, symmetrical w/ no lag. ENT - Palate and gums pink, mucosa moist, no pallor/cyanosis. Neck: supple with no masses, no thyromegaly, No JVD. Respiratory: Clear to auscultation. Chest: Median sternotomy intact, no drainage Heart: S1S2+, Regular Rate and Rhythm, No murmurs, rubs, or gallops. Gastrointestinal: + Bowel Sounds all quadrants. Soft, nontender with no masses or organomegaly; No HJR. Musculoskeletal: Equal strength in all extremities. No weakness. Neurology: Alert and oriented X 3. Calm, cooperative affect. No focal deficits. Extremities: + peripheral pulses. No clubbing, cyanosis. No lower extremity edema. -- DATA -- MEDICATIONS INSULIN GLARGINE 30 UNITS SUBQ BEDTIME DEXTROSE 50%-WATER 25 ML IV ASDIR PRN INSULIN LISPRO 5 UNITS SUBQ AC FERROUS SULFATE 325 MG PO BID LACTULOSE 30 ML PO BID PRN METOPROLOL TARTRATE 5 MG IV Q6H PRN carvediloL 25 MG PO Q12HR clopidogreL 75 MG PO DAILY FUROSEMIDE 20 MG PO QAM DOCUSATE SODIUM 100 MG PO BID ONDANSETRON HCL/PF 4 MG IV Q6H PRN AMIODARONE HCL 200 MG PO DAILY LOSARTAN POTASSIUM 25 MG PO DAILY GLUCAGON 1 MG IM ASDIR PRN FINASTERIDE 5 MG PO BEDTIME INSULIN LISPRO 0 UNITS SUBQ C MEALS HS ONDANSETRON 4 MG PO Q6H PRN ASPIRIN 81 MG PO DAILY ACETAMINOPHEN 650 MG PO Q4H PRN cloNIDine HCL 0.1 MG PO Q8H PRN NITROGLYCERIN 0.4 MG SL Q5M PRN IOPAMIDOL 76% 100 ML IV ONCE (PRN) SPIRONOLACTONE 25 MG PO DAILY TAMSULOSIN 0.4 MG PO DAILY ATORVASTATIN CALCIUM 40 MG PO BEDTIME LABS GLU BED (05/16/23 19:42) GLUBED 274 H GLU BED (05/16/23 16:50) GLUBED 384 *H GLU BED (05/16/23 11:09) GLUBED 337 *H GLU BED (05/16/23 07:24) GLUBED 307 *H -- ATTESTATION -- CARE ACTIVITIES / CARE COORDINATION: - I have reviewed the history and repeated the gupta elements - I have seen and examined this patient - I have reviewed the progress in the clinical course since the last examination - I have discussed the patient's condition with other members of the care team ADDITIONAL DETAIL: Plan of care discussed with Dr. Juan M Wei Signed in PatientKeeper by Mckay Meyer on 05/17/23 at 16:52 Cosigned by JUAN M WEI MD on 06/19/23 at 11:51 at 1151 at 1151 ATTE NTION *EDITS and/or ADDENDA must be made in Patient Keeper for this note. * * Edits and ammendments created in [employer] are not visible * * in Patient Keeper or the legal medical record ([facility]). * RPT #: [id number] END OF REPORT [facility] 2023-05-16 14:06:00 [facility] ([facility]) Cardiology Consultation REPORT #: [id number] REPORT STATUS: Signed DATE: 05/16/23 TIME: 1406 PATIENT: LUIS GUZMÁN UNIT #: [id number] ROOM #: [id number] BED: A : 55 AGE: 67 SEX: M ATTEND: Rajesh Kilgore MD ADM AUTHOR: Rony Bro MD ATTE NTION *EDITS and/or ADDENDA must be made in Patient Keeper for this note. * * Edits and ammendments created in [employer] are not visible * * in Patient Keeper or the legal medical record ([facility]). * -- ASSESSMENT AND PLAN -- PROBLEMS: 1: Atrial fibrillation A/P: -At this point would continue amiodarone; low benefit of reloading -Alternative agents would likely be more torsadogenic (ie sotalol) in the setting of intracranial mass which itself may prolong QT. 1C not an option given CAD -Would avoid anticoagulation in the setting of intracranial mass -Bradycardia lowest in the 50's per telemetry and patient asymptomatic. Continue to monitor -- HISTORY -- HPI: 67yo man hx DMII, CVA, HTN, DLD, ESRD w/ fistula, HFrEF, CAD s/p CABG, atrial fibrillation. EP consulted for bradycardia, atrial fibrillation and atrial flutter. Recently found to have intracranial mass. PAST MEDICAL HISTORY: DMII, CVA, HTN, DLD, ESRD w/ fistula, HFrEF, atrial fibrilation PAST SURGICAL HISTORY: CAD s/p CABG -- ALLERGIES/HOME MEDS -- ALLERGIES: No Known Allergies (UNKNOWN - Allergy) [EXTERNAL] No Known Allergies (UNKNOWN - External allergies are for display only, consider adding to medical record for drug interaction check) HOME MEDICATIONS: Amiodarone Tab (Cordarone Tab) 400 MG PO Q12H aspirin chewable tablet 81 MG PO DAILY Atorvastatin Tab (Lipitor Tab) 80 MG PO BEDTIME Carvedilol Tab (Coreg Tab) 25 MG PO BID MEALS Clopidogrel Tab (Plavix Tab) 75 MG PO DAILY Ferrous Sulfate Tab (Feosol Tab) 325 MG PO DAILY Finasteride Tab (Proscar Tab) 5 MG PO BEDTIME Insulin (Lispro) Inj (HumaLOG Inj) 3 UNITS SubQ C MEALS Losartan Tab (Cozaar Tab) 25 MG PO DAILY metFORMIN Tab (Glucophage Tab) 1000 MG PO BID Spironolactone Tab (Aldactone Tab) 25 MG PO DAILY Tamsulosin Cap (Flomax Cap) 0.4 MG PO DAILY Tresiba FlexTouch U-100 100 unit/mL (3 mL) subcutaneous insulin pen (insulin degludec) 36 UNITS SubQ DAILY -- SUBJECTIVE -- -REVIEW OF SYSTEMS- COMMENT: negative unless otherwise specified in hpi -- OBJECTIVE -- VITALS (05/15 14:06 - 05/16 14:06): Temperature C: 36.9 (36.7 - 37.0) Pulse Rate 56 (56 - 81) Respiratory rate: 18 (14 - 33) Blood pressure: 145/67 (119/60 - 162/79) Blood pressure source: Monitor I/Os (05/15 07:00 - 05/16 07:00): Net -515 Intake 710 Output 1,225 -EXAM- GENERAL: Well developed, well nourished, in no apparent distress. EYES: PERRL, EOM intact LUNGS: Clear bilaterally with normal respiratory effort. HEART: Regular rate and rhythm, normal S1, S2, no murmurs, no rubs, no gallops, no clicks. ABDOMEN: Soft, non-tender, no organomegaly, no masses noted. EXTREMITIES: WWP, no edema. -- DATA -- MEDICATIONS morphine SULFATE 2 MG IV Q6H PRN INSULIN GLARGINE 30 UNITS SUBQ BEDTIME DEXTROSE 50%-WATER 25 ML IV ASDIR PRN INSULIN LISPRO 5 UNITS SUBQ AC FERROUS SULFATE 325 MG PO BID LACTULOSE 30 ML PO BID PRN METOPROLOL TARTRATE 5 MG IV Q6H PRN carvediloL 25 MG PO Q12HR clopidogreL 75 MG PO DAILY FUROSEMIDE 20 MG PO QAM DOCUSATE SODIUM 100 MG PO BID ONDANSETRON HCL/PF 4 MG IV Q6H PRN AMIODARONE HCL 200 MG PO DAILY LOSARTAN POTASSIUM 25 MG PO DAILY GLUCAGON 1 MG IM ASDIR PRN FINASTERIDE 5 MG PO BEDTIME morphine SULFATE 2 MG IV Q3H PRN INSULIN LISPRO 0 UNITS SUBQ C MEALS HS ONDANSETRON 4 MG PO Q6H PRN ASPIRIN 81 MG PO DAILY ACETAMINOPHEN 650 MG PO Q4H PRN cloNIDine HCL 0.1 MG PO Q8H PRN NITROGLYCERIN 0.4 MG SL Q5M PRN IOPAMIDOL 76% 100 ML IV ONCE (PRN) SPIRONOLACTONE 25 MG PO DAILY TAMSULOSIN 0.4 MG PO DAILY ATORVASTATIN CALCIUM 40 MG PO BEDTIME LABS GLU BED (05/16/23 11:09) GLUBED 337 *H GLU BED (05/16/23 07:24) GLUBED 307 *H GLU BED (05/15/23 21:21) GLUBED 346 *H GLU BED (05/15/23 16:10) GLUBED 130 H Signed in PatientKeeper by Rony Bro MD on 05/16/23 at 17:53 at 1753 ATTE NTION *EDITS and/or ADDENDA must be made in Patient Keeper for this note. * * Edits and ammendments created in [employer] are not visible * * in Patient Keeper or the legal medical record ([facility]). * RPT #: [id number] END OF REPORT [facility] 2023-05-16 10:57:00 [facility] ([facility]) Hospitalist Progress Note REPORT #: [id number] REPORT STATUS: Signed DATE: 05/16/23 TIME: 1057 PATIENT: LUIS GUZMÁN UNIT #: [id number] ROOM #: [id number] BED: A : 55 AGE: 67 SEX: M ATTEND: Rajesh Kilgore MD ADM AUTHOR: Rajesh Kilgore MD ATTE NTION *EDITS and/or ADDENDA must be made in Patient Keeper for this note. * * Edits and ammendments created in [employer] are not visible * * in Patient Keeper or the legal medical record ([facility]). * -- ASSESSMENT AND PLAN -- GENERAL ASSESSMENT: ASSESSMENT AND PLAN: 1. Acute weakness and tiredness, etiology likely related to acute/subacute CVA. also, recent Covid positivity, which may be contributory. 1. Heterogenous area of white matter hypodensity and gyral irregularity at the left occipital lobe concerning for underlying infiltrative mass. Recommend further evaluation with MRI brain with and without contrast. 2. Prominent left basal vein of Max which is opacified similar to the cerebral arteries suggesting some underlying fistulous connection, however none is clearly identifiable. This may be related to the abnormality at the left occipital lobe as described above. 3. No aneurysm, occlusion, or dissection. No intracranial hemorrhage is seen. *MRI shows Large subacute infarct involving the left occipital temporal region of the posterior cerebral artery distribution. This includes involvement of the left visual cortex and a right homonymous hemianopsia would be expected. 2. 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 3. No space-occupying intracranial mass 2. Borderline elevated troponin, likely sequelae of recent multivessel CABG. H/O CABG X 2, Left internal mammary artery bypass to the left anterior descending and first diagonal coronary arteries (sequential graft) Reversed saphenous vein graft to the ramus intermedius coronary artery by Dr Wilfrido Gray 05/03/23. CAD appears to be clinically stable. Continue guideline directed medical therapy including beta-blockers statins aspirin and clopidogrel. 3. Diabetes mellitus type 2, not well controlled. Hemoglobin A1c is 8.2. Continue long-acting and short-acting insulins. 4. Hypertension, Continue current home medication regimen of beta-blockers and ARB. 5. Benign prostatic hypertrophy. Continue finasteride and tamsulosin. 6. History of cerebrovascular accident, with minimal left-sided residual weakness. 7. Chronic kidney disease stage II. 8. Anemia. 9. Lactic acidosis, transient, etiology unclear. No definite evidence of infection or sepsis. 10. Leukocytosis, reactive. 11. COVID positivity, recent. 12. Atrial fibrillation, perioperative. Converted to sinus rhythm with amiodarone. He has already been loaded with amiodarone, continue maintenance dose 200 mg daily. He is not on DOAC because of very recent CABG. 13. Elevated BNP, no definite evidence of CHF. Gentle diuresis. 14. Tachybradycardia, likely SSS. monitor for now. seen by EP. ADDITIONAL COMMENTS: Large subacute infarct involving the left occipital temporal region of the posterior cerebral artery distribution. This includes involvement of the left visual cortex and a right homonymous hemianopsia would be expected. 2. 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 3. No space-occupying intracranial mass -- SUBJECTIVE -- HPI: This 67-year-old gentleman has a past medical history significant for insulin-dependent diabetes with neuropathy, CVA, hypertension, hyperlipidemia and AV fistula repair in the neck, had complaints of progressive fatigue and tiredness and was recently admitted to an outside hospital with a viral illness/pneumonia. Troponin was found to be elevated and echocardiogram showed dilated cardiomyopathy and wall motion abnormalities. The patient underwent selective coronary angiogram by Dr. Katya Cruz on 04/28/2023 which showed critical distal left main disease involving the origin of the left anterior descending, 99%, distal left main 90%, ostium in origin of the left circumflex 90% and a big ramus intermedius with 99% stenosis, first obtuse marginal is small with 80% focal disease, left ventricular ejection fraction 50-55% with anteroapical hypokinesis and end-diastolic pressure of 25. He was admitted to [facility] and on 05/03/2023, and underwent Urgent CABG X 2 using cardiopulmonary bypass Left internal mammary artery bypass to the left anterior descending and first diagonal coronary arteries (sequential graft) Reversed saphenous vein graft to the ramus intermedius coronary artery by Dr Wilfrido Gray. Postoperatively he developed atrial fibrillation with rapid ventricular response requiring IV and oral amiodarone. He also was found to have COVID positivity but was essentially asymptomatic from that. He was discharged home in stable condition on 05/08/2023. He presented to [facility] on 05/14/2023 with complaints of generalized weakness and fatigue that started after breakfast on the day of presentation. He was reportedly hypotensive upon presentation and his troponin was borderline elevated as well as his lactic acid. He received aspirin at the outside hospital. He was transferred to [facility] for suspected non-ST segment elevation myocardial infarction. Upon arrival his symptoms of generalized weakness had already improved and his blood pressure had stabilized. PATIENT NARRATIVE: 05/15: Today the patient indicated to the nurse that on the day of admission, 05/14, he had actually experienced disorientation, along with blurred and double vision and "could not find the words to speak". He also said that he did not remember having told anybody in the hospital about these symptoms. He is now reporting some double vision specially in the right eye and having aphasia, and stuttering. There is minimal right facial droop on evaluation. He has a previous history of cerebrovascular accident with minimal left sided residual weakness. Stat CT scan and CT angiogram of the head and neck 05/15/22 show: 1. Heterogenous area of white matter hypodensity and gyral irregularity at the left occipital lobe concerning for underlying infiltrative mass. Recommend further evaluation with MRI brain with and without contrast. 2. Prominent left basal vein of Max which is opacified similar to the cerebral arteries suggesting some underlying fistulous connection, however none is clearly identifiable. This may be related to the abnormality at the left occipital lobe as described above. 3. No aneurysm, occlusion, or dissection. No intracranial hemorrhage is seen. Neurology consultation, Dr Naidya Bergman. pt says that he sees neurologist Dr Andre Chanel and neurosurgeon Dr Asa Romo at [facility] (for his h/o CVA) He also has atrial fibrillation with moderate ventricular response, down to bradycardia and sinus rhythm at times. Discussed with Dr. Keagan Heath. 05/16: MRI brain w/wo: 1. 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 This includes involvement of the left visual cortex and a right homonymous hemianopsia would be expected. 2. 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 3. No space-occupying intracranial mass is otherwise identified. -Also seen by EP services. Bradycardia lowest, 50s. Continue amiodarone for now. No immediate need for pacemaker placement. Avoid other potentially torsade agenic agents i.e. sotalol. -REVIEW OF SYSTEMS- GENERAL: weakness, fatigue EYES: Negative for blurry vision. No diplopia. EARS/NOSE/THROAT: Negative for sore throat. No otalgia. No rhinorrhea. RESPIRATORY: Negative for dyspnea or wheeze. No cough. CARDIOVASCULAR: Negative for chest pain or palpitations. No extremity swelling. GASTROINTESTINAL: Negative for abdominal pain or nausea. No emesis. No diarrhea. GENITOURINARY: Negative for dysuria, frequency, or urgency. No gross hematuria. MUSCULOSKELETAL: Negative for joint stiffness, pain, or arthralgias. SKIN: Negative for rashes. No pruritus. NEUROLOGICAL: Difficulty finding words, stuttering, double vision in the right eye. ENDOCRINE: Negative for cold intolerance, heat intolerance, polyphagia, polydipsia, polyuria, weight change, fatigue. HEMATALOGIC / LYMPHORETICULAR: Negative for excessive bleeding, unusual masses. -- OBJECTIVE -- VITALS (05/15 10:57 - 05/16 10:57): Temperature C: 36.7 (36.5 - 37.0) Pulse Rate 56 (56 - 81) Respiratory rate: 18 (14 - 33) Blood pressure: 145/67 (119/60 - 162/79) Blood pressure source: Monitor I/Os (05/15 07:00 - 05/16 07:00): Net -515 Intake 710 Output 1,225 -EXAM- GENERAL: GENERAL: Elderly male, NAD. VITAL SIGNS: Weight is 78.2 kilograms. Body mass index 27. HEENT: Head is atraumatic. Pupils are reactive to light and accommodation. Extraocular muscles intact. NECK: Supple. No thyromegaly. No JVD. CARDIOVASCULAR: Regular rate and rhythm. CHEST: sternotomy. 2/2 CTs removed. LUNGS: Clear to auscultation. ABDOMEN: Soft, nontender. EXTREMITIES: No edema, cyanosis or clubbing. Pedal pulses palpable. NEUROLOGIC: Minimal chronic left-sided weakness. Intermittent aphasia. -- DATA -- MEDICATIONS morphine SULFATE 2 MG IV Q6H PRN DEXTROSE 50%-WATER 25 ML IV ASDIR PRN INSULIN LISPRO 5 UNITS SUBQ AC FERROUS SULFATE 325 MG PO BID LACTULOSE 30 ML PO BID PRN METOPROLOL TARTRATE 5 MG IV Q6H PRN carvediloL 25 MG PO Q12HR clopidogreL 75 MG PO DAILY FUROSEMIDE 20 MG PO QAM DOCUSATE SODIUM 100 MG PO BID ONDANSETRON HCL/PF 4 MG IV Q6H PRN AMIODARONE HCL 200 MG PO DAILY LOSARTAN POTASSIUM 25 MG PO DAILY GLUCAGON 1 MG IM ASDIR PRN FINASTERIDE 5 MG PO BEDTIME morphine SULFATE 2 MG IV Q3H PRN INSULIN LISPRO 0 UNITS SUBQ C MEALS HS ONDANSETRON 4 MG PO Q6H PRN ASPIRIN 81 MG PO DAILY ACETAMINOPHEN 650 MG PO Q4H PRN cloNIDine HCL 0.1 MG PO Q8H PRN NITROGLYCERIN 0.4 MG SL Q5M PRN IOPAMIDOL 76% 100 ML IV ONCE (PRN) SPIRONOLACTONE 25 MG PO DAILY TAMSULOSIN 0.4 MG PO DAILY INSULIN GLARGINE 20 UNITS SUBQ BEDTIME ATORVASTATIN CALCIUM 40 MG PO BEDTIME LABS GLU BED (05/16/23 07:24) GLUBED 307 *H GLU BED (05/15/23 21:21) GLUBED 346 *H GLU BED (05/15/23 16:10) GLUBED 130 H GLU BED (05/15/23 11:52) GLUBED 331 *H -- QUALITY -- -MEDICATIONS- - I attest that the foregoing medication list in the medical record is true, accurate, and complete to the best of my knowledge. -- ATTESTATION -- TIME SPENT ON PATIENT CARE: - Direct 35 minutes - > 50% of time spent on Counseling/Care Coordination CARE ACTIVITIES / CARE COORDINATION: - I have reviewed the history and repeated the gupta elements - I have seen and examined this patient - I have reviewed the progress in the clinical course since the last examination - I have discussed the patient's condition with other members of the care team Signed in PatientKeeper by Rajesh Kilgore MD on 05/16/23 at 21:27 at 2127 ATTE NTION *EDITS and/or ADDENDA must be made in Patient Keeper for this note. * * Edits and ammendments created in [employer] are not visible * * in Patient Keeper or the legal medical record ([facility]). * RPT #: [id number] END OF REPORT [facility] 2023-05-16 09:37:00 [facility] ([facility]) Consultation REPORT #: [id number] REPORT STATUS: Signed DATE: 05/16/23 TIME: 936 PATIENT: LUIS GUZMÁN UNIT #: [id number] ROOM #: [id number] BED: A : 55 AGE: 67 SEX: M ATTEND: Rajesh Kilgore MD ADM AUTHOR: Naidya Bergman MD ATTE NTION *EDITS and/or ADDENDA must be made in Patient Keeper for this note. * * Edits and ammendments created in [employer] are not visible * * in Patient Keeper or the legal medical record ([facility]). * -- ASSESSMENT AND PLAN -- GENERAL ASSESSMENT: # 67-year-old gentleman with extensive past medical history, now s/p CABG on 05/03 # Presents with atypical diplopia, on 05/14 # Found to have left occipital infiltrative process on CT head, alongside with opacification of the left basal vein of Max # History of "mini strokes" in the past Hypertension Diabetes Afib Differential diagnosis is quite wide at this point, I ordered a stat MRI brain with and without contrast along with MRV to further evaluate Includes: Primary or metastatic cancer, CVA, venous thrombosis Continue aspirin and statin at this point Further recommendations based on the results of the above Discussed with primary team Cardiology on board Thank you for allowing us to participate in the care of your patient. Please do not hesitate to call Neurology with any further questions or changes in neurological status. -- HISTORY -- CHIEF COMPLAINT: Diplopia, brain mass HPI: 67-year-old right-handed man with recent CABG on 05/03, as well as history of mini strokes, unclear details, but apparently resulted in right facial droop, who on 05/14 after leaving the restaurant, had a sudden sense of generalized weakness, thereafter he noticed double vision. It happens when both eyes are open, or just the right eye, he sees the double vision has a faint sensation on the right visual field, worse with close-up images. No history of cancer, no family history of neurological issues other than stroke in his mother at late stage. No clear description of focal weakness or numbness, the patient is somewhat not a clear historian, notes occasional left-sided weakness, but says that has been going on intermittently for a long time. PAST MEDICAL HISTORY: Coronary artery disease (s/p CABG x2V on 05/03/23) H/o CVA (minimal left sided residual weakness) Hyperlipidemia Hypertension Diabetes (insulin-dependent) Neuropathy AV fistula repair in the neck PAST SURGICAL HISTORY: CABG x 2V on 05/03/23 SCA on 04/28/23 AV fistula repair in the neck FAMILY HISTORY: Mother with CVA -SOCIAL HISTORY- -TOBACCO USE- DETAILS/COMMENTS: Denies -VAPING/INHALED SOLVENTS- DETAILS/COMMENTS: Denies -ALCOHOL USE- DETAILS/COMMENTS: Denies -DRUG USE- DETAILS/COMMENTS: Denies -- ALLERGIES/HOME MEDS -- ALLERGIES: No Known Allergies (UNKNOWN - Allergy) [EXTERNAL] No Known Allergies (UNKNOWN - External allergies are for display only, consider adding to medical record for drug interaction check) HOME MEDICATIONS: Amiodarone Tab (Cordarone Tab) 400 MG PO Q12H aspirin chewable tablet 81 MG PO DAILY Atorvastatin Tab (Lipitor Tab) 80 MG PO BEDTIME Carvedilol Tab (Coreg Tab) 25 MG PO BID MEALS Clopidogrel Tab (Plavix Tab) 75 MG PO DAILY Ferrous Sulfate Tab (Feosol Tab) 325 MG PO DAILY Finasteride Tab (Proscar Tab) 5 MG PO BEDTIME Insulin (Lispro) Inj (HumaLOG Inj) 3 UNITS SubQ C MEALS Losartan Tab (Cozaar Tab) 25 MG PO DAILY metFORMIN Tab (Glucophage Tab) 1000 MG PO BID Spironolactone Tab (Aldactone Tab) 25 MG PO DAILY Tamsulosin Cap (Flomax Cap) 0.4 MG PO DAILY Tresiba FlexTouch U-100 100 unit/mL (3 mL) subcutaneous insulin pen (insulin degludec) 36 UNITS SubQ DAILY -- OBJECTIVE -- VITALS (05/15 09:37 - 05/16 09:37): Temperature C: 36.7 (36.5 - 37.0) Pulse Rate 56 (56 - 81) Respiratory rate: 18 (14 - 33) Blood pressure: 145/67 (119/60 - 164/79) Blood pressure source: Monitor I/Os (05/15 07:00 - 05/16 07:00): Net -515 Intake 710 Output 1,225 -EXAM- NEUROLOGICAL: Mental status: The patient is awake, alert and oriented x3. Fluent, no dysarthria. Cranial nerves: Extraocular movements are intact, pupils are round and reactive to light, visual mcmanus with right homonymous hemianopsia. Facial sensation is intact in all 3 divisions of the trigeminal bilaterally. Right facial droop. Tongue, uvula, and palate are midline. Diplopia is present when both eyes are open, or when only right eye is open. Worse when looking to the right direction. Motor examination: No drift. Strength is 5/5 in all extremities proximally and distally. Sensory examination is intact to light touch bilaterally. No dysmetria on midjei-no-yree. Reflexes are symmetric throughout. Right Babinski Gait is narrow based. -- DATA -- MEDICATIONS morphine SULFATE 2 MG IV Q6H PRN DEXTROSE 50%-WATER 25 ML IV ASDIR PRN INSULIN LISPRO 5 UNITS SUBQ AC FERROUS SULFATE 325 MG PO BID LACTULOSE 30 ML PO BID PRN METOPROLOL TARTRATE 5 MG IV Q6H PRN carvediloL 25 MG PO Q12HR clopidogreL 75 MG PO DAILY FUROSEMIDE 20 MG PO QAM DOCUSATE SODIUM 100 MG PO BID ONDANSETRON HCL/PF 4 MG IV Q6H PRN AMIODARONE HCL 200 MG PO DAILY LOSARTAN POTASSIUM 25 MG PO DAILY GLUCAGON 1 MG IM ASDIR PRN FINASTERIDE 5 MG PO BEDTIME morphine SULFATE 2 MG IV Q3H PRN INSULIN LISPRO 0 UNITS SUBQ C MEALS HS ONDANSETRON 4 MG PO Q6H PRN ASPIRIN 81 MG PO DAILY ACETAMINOPHEN 650 MG PO Q4H PRN cloNIDine HCL 0.1 MG PO Q8H PRN NITROGLYCERIN 0.4 MG SL Q5M PRN IOPAMIDOL 76% 100 ML IV ONCE (PRN) SPIRONOLACTONE 25 MG PO DAILY TAMSULOSIN 0.4 MG PO DAILY INSULIN GLARGINE 20 UNITS SUBQ BEDTIME ATORVASTATIN CALCIUM 40 MG PO BEDTIME LABS GLU BED (05/16/23 07:24) GLUBED 307 *H GLU BED (05/15/23 21:21) GLUBED 346 *H GLU BED (05/15/23 16:10) GLUBED 130 H GLU BED (05/15/23 11:52) GLUBED 331 *H TEST RESULTS CT HEAD/BRAIN W/O CONT (05/15/23 11:17) IMPRESSION: 1. Heterogenous area of white matter hypodensity and gyral irregularity at the left occipital lobe concerning for underlying infiltrative mass. Recommend further evaluation with MRI brain with and without contrast. 2. Prominent left basal vein of Max which is opacified similar to the cerebral arteries suggesting some underlying fistulous connection, however none is clearly identifiable. This may be related to the abnormality at the left occipital lobe as described above. 3. No aneurysm, occlusion, or dissection. No intracranial hemorrhage is seen. ADDITIONAL COMMENTS: Neuro-imaging was directly viewed by me, and agree with formal report Signed in PatientKeeper by Nadiya Bergman MD on 05/16/23 at 09:46 at 0946 ATTE NTION *EDITS and/or ADDENDA must be made in Patient Keeper for this note. * * Edits and ammendments created in [facility] are not visible * * in Patient Keeper or the legal medical record ([facility]). * RPT #: [id number] END OF REPORT [facility] 2023-05-16 08:09:00 [facility] ([facility]) Cardiology Progress Notes REPORT #: [id number] REPORT STATUS: Signed DATE: 05/16/23 TIME: 808 PATIENT: LUIS GUZMÁN UNIT #: [id number] ROOM #: [facility] BED: A : 55 AGE: 67 SEX: M ATTEND: Rajesh Kilgore MD ADM AUTHOR: Mckay Meyer ATTE NTION *EDITS and/or ADDENDA must be made in Patient Keeper for this note. * * Edits and ammendments created in [employer] are not visible * * in Patient Keeper or the legal medical record ([facility]). * -- CO-SIGNATURE -- COMMENTS: The patient was seen on rounds with ZOHRA Rosario. The patient has no complaints Examination demonstrates normal heart sounds and clear lung mcmanus. Impression and plan The patient is a 67-year-old gentleman with a history of coronary artery disease with previous bypass surgery on May 03. The patient had been admitted to [facility] with generalized fatigue and blood work demonstrated a borderline troponin and he was transferred here for further care and evaluation for his diplopia and aphasia. CT scan did not demonstrate any new lesions. Neurology has recommended that the patient get an MRA/MRI. Signed in PatientKeeper by JUAN M WEI MD on 06/19/23 at 11:50 -- ASSESSMENT AND PLAN -- PROBLEMS: 1: Acute weakness A/P: The patient is a 67-year-old gentleman (patient of Dr. Katya Cruz) has a PMHx of coronary artery disease (s/p CABG x2V on 05/03/23), h/o CVA (minimal left sided residual weakness), hyperlipidemia, hypertension, diabetes (insulin-dependent), neuropathy, AV fistula repair in the neck. On 04/28/23, he underwent selective coronary angiogram at [facility] for worsening fatigue and possibly chest discomfort and showed distal left main disease (90%), LAD (99%), ostial LCx (90%), RI (99%), OM1 (small, 80%). Echo showed an EF of 50-55%, and restrictive physiology with diastolic dysfunction. He was transferred here for urgent bypass surgery with Dr. Wilfrido Gray and had 2 Vessel CABG (WERNER-LAD and SVG-RI) on 04/2623. Post-op he went into atrial fibrillation with RVR, started on IV and PO amiodarone. He tested COVID positive, was asymptomatic. He was discharged on stable condition on 05/08/23. On 05/14/22, he presented at [facility] with complaint of generalized weakness and fatigue that started earlier that day after breakfast. He was found to be hypotensive. Blood work showed borderline troponin and lactic acid, and was suspected NSTEMI. He was transferred here to [facility] for higher level of care. The patient seen in the room, alert, oriented and in no acute distress. He states on 05/14/22 after eating breakfast had sudden onset of generalized weakness, blurry vision and "could not find the words to speak", loss of balance that lasted "short time". Patient is currently reporting right eye double vision, has aphasia, slight right facial drooping on examination and stuttering. STAT CTA head/neck ordered and neurology consulted. - STAT CTA head/neck showed heterogenous area of white matter hypodensity and gyral irregularity at the left occipital lobe concerning for underlying infiltrative mass, prominent left basal vein of Max which is opacified similar to the cerebral arteries suggesting some underlying fistulous connection, however none is clearly identifiable. This may be related to the abnormality at the left occipital lobe as described above. - Dr. Bergman with neurology services following and recommending MRI brain with and without contrast along with MRV - Patient see Dr. Andre Chanel (neurologist) and Dr. Asa Romo at [facility] (for h/o CVA) as outpatient 2: Atrial fibrillation/sick sinus syndrome A/P: - Atrial fibrillation, to sinus rhythm and down to bradycardia sometimes, asymptomatic - Continue PO amiodarone 200mg daily - Dr. Bro with electrophysiology services consulted, appreciate input 3: Coronary artery disease A/P: - S/p CABG x 2V on 05/03/23 - Continue DAPT with aspirin and clopidogrel - Continue atorvastatin 40mg daily and carvedilol 25mg BID - Continue PO furosemide 20mg daily -- SUBJECTIVE -- CHIEF COMPLAINT: Acute weakness PATIENT NARRATIVE: Out of bed and in chair. He denies chest pain, shortness of breath, palpitations. He states right eye double vision is somewhat better than yesterday. Seen by Dr. Wei today. No acute events overnight. -REVIEW OF SYSTEMS- GENERAL: Negative for fever, malaise, fatigue. EYES: Negative for blurry vision. No diplopia. EARS/NOSE/THROAT: Negative for sore throat. No otalgia. No rhinorrhea. + right eye double vision RESPIRATORY: Negative for dyspnea or wheeze. No cough. CARDIOVASCULAR: Negative for chest pain or palpitations. No extremity swelling. GASTROINTESTINAL: Negative for abdominal pain or nausea. No emesis. No diarrhea. GENITOURINARY: Negative for dysuria, frequency, or urgency. No gross hematuria. MUSCULOSKELETAL: Negative for joint stiffness, pain, or arthralgias. SKIN: Negative for rashes. No pruritus. NEUROLOGICAL: Negative for headache. No vertigo. Denies paresthesias. + aphasia and minimal right facial drooping PSYCHIATRIC: Negative for specific complaints. -- OBJECTIVE -- VITALS (05/15 07:21 - 05/16 07:21): Temperature C: 37.0 (36.5 - 37.0) Pulse Rate 56 (56 - 81) Respiratory rate: 18 (12 - 33) Blood pressure: 145/67 (119/60 - 164/82) Blood pressure source: Monitor I/Os (05/15 07:00 - 05/16 07:00): Net -515 Intake 710 Output 1,225 -EXAM- OTHER: Constitutional: Well developed, well nourished patient, in no acute distress. Derm/Integumentary: Warm and dry with no rashes, sores, or lesions. HEENT: Eyes-sclera clear and white, symmetrical w/ no lag. ENT - Palate and gums pink, mucosa moist, no pallor/cyanosis. Neck: supple with no masses, no thyromegaly, No JVD. Respiratory: Clear to auscultation. Chest: Median sternotomy intact, no drainage Heart: S1S2+, Regular Rate and Rhythm, No murmurs, rubs, or gallops. Gastrointestinal: + Bowel Sounds all quadrants. Soft, nontender with no masses or organomegaly; No HJR. Musculoskeletal: Equal strength in all extremities. No weakness. Neurology: Alert and oriented X 3. Calm, cooperative affect. No focal deficits. Extremities: + peripheral pulses. No clubbing, cyanosis. No lower extremity edema. -- DATA -- MEDICATIONS morphine SULFATE 2 MG IV Q6H PRN DEXTROSE 50%-WATER 25 ML IV ASDIR PRN FERROUS SULFATE 325 MG PO BID LACTULOSE 30 ML PO BID PRN METOPROLOL TARTRATE 5 MG IV Q6H PRN carvediloL 25 MG PO Q12HR clopidogreL 75 MG PO DAILY FUROSEMIDE 20 MG PO QAM DOCUSATE SODIUM 100 MG PO BID ONDANSETRON HCL/PF 4 MG IV Q6H PRN AMIODARONE HCL 200 MG PO DAILY LOSARTAN POTASSIUM 25 MG PO DAILY GLUCAGON 1 MG IM ASDIR PRN FINASTERIDE 5 MG PO BEDTIME morphine SULFATE 2 MG IV Q3H PRN INSULIN LISPRO 0 UNITS SUBQ C MEALS HS ONDANSETRON 4 MG PO Q6H PRN ASPIRIN 81 MG PO DAILY ACETAMINOPHEN 650 MG PO Q4H PRN cloNIDine HCL 0.1 MG PO Q8H PRN NITROGLYCERIN 0.4 MG SL Q5M PRN IOPAMIDOL 76% 100 ML IV ONCE (PRN) SPIRONOLACTONE 25 MG PO DAILY TAMSULOSIN 0.4 MG PO DAILY INSULIN GLARGINE 20 UNITS SUBQ BEDTIME ATORVASTATIN CALCIUM 40 MG PO BEDTIME LABS GLU BED (05/15/23 21:21) GLUBED 346 *H GLU BED (05/15/23 16:10) GLUBED 130 H GLU BED (05/15/23 11:52) GLUBED 331 *H GLU BED (05/15/23 07:29) GLUBED 166 H -- ATTESTATION -- CARE ACTIVITIES / CARE COORDINATION: - I have reviewed the history and repeated the gupta elements - I have seen and examined this patient - I have reviewed the progress in the clinical course since the last examination - I have discussed the patient's condition with other members of the care team ADDITIONAL DETAIL: Plan of care discussed with Dr. Juan M Wei Signed in PatientKeeper by Mckay Meyer on 05/16/23 at 18:08 Cosigned by JUAN M WEI MD on 06/19/23 at 11:50 at 1150 at 1150 ATTE NTION *EDITS and/or ADDENDA must be made in Patient Keeper for this note. * * Edits and ammendments created in [facility] are not visible * * in Patient Keeper or the legal medical record ([facility]). * [facility] #: [id number] END OF REPORT [facility] 2023-05-15 18:00:00 [facility] ([facility]) Hospitalist Progress Note REPORT #: [id number] REPORT STATUS: Signed DATE: 05/15/23 TIME: 1800 PATIENT: LUIS GUZMÁN UNIT #: [id number] ROOM #: [id number] BED: [place] : 55 AGE: 67 SEX: M ATTEND: Rajesh Kilgore MD ADM AUTHOR: Rajesh Kilgore MD ATTE NTION *EDITS and/or ADDENDA must be made in Patient Keeper for this note. * * Edits and ammendments created in [employer] are not visible * * in Patient Keeper or the legal medical record ([facility]). * -- ASSESSMENT AND PLAN -- GENERAL ASSESSMENT: ASSESSMENT AND PLAN: 1. Acute weakness and tiredness, etiology unclear. However, the patient was recently positive with COVID-19, previously asymptomatic. It is possible that this may be a sequelae of the COVID positivity. Rule out any additional etiologies. CT/CTA head and neck 05/15/2022 1. Heterogenous area of white matter hypodensity and gyral irregularity at the left occipital lobe concerning for underlying infiltrative mass. Recommend further evaluation with MRI brain with and without contrast. 2. Prominent left basal vein of Max which is opacified similar to the cerebral arteries suggesting some underlying fistulous connection, however none is clearly identifiable. This may be related to the abnormality at the left occipital lobe as described above. 3. No aneurysm, occlusion, or dissection. No intracranial hemorrhage is seen. -possible cause of patient's presenting symptoms. 2. Borderline elevated troponin, likely sequelae of recent multivessel CABG. H/O CABG X 2, Left internal mammary artery bypass to the left anterior descending and first diagonal coronary arteries (sequential graft) Reversed saphenous vein graft to the ramus intermedius coronary artery by Dr Wilfrido Gray 05/03/23. CAD appears to be clinically stable. Continue guideline directed medical therapy including beta-blockers statins aspirin and clopidogrel. 3. Diabetes mellitus type 2, not well controlled. Hemoglobin A1c is 8.2. Continue long-acting and short-acting insulins. 4. Hypertension, Continue current home medication regimen of beta-blockers and ARB. 5. Benign prostatic hypertrophy. Continue finasteride and tamsulosin. 6. History of cerebrovascular accident, with minimal left-sided residual weakness. 7. Chronic kidney disease stage II. 8. Anemia. 9. Lactic acidosis, transient, etiology unclear. No definite evidence of infection or sepsis. 10. Leukocytosis, reactive. 11. COVID positivity, recent. 12. Atrial fibrillation, perioperative. Converted to sinus rhythm with amiodarone. He has already been loaded with amiodarone, continue maintenance dose 200 mg daily. He is not on DOAC because of very recent CABG. 13. Elevated BNP, no definite evidence of CHF. Gentle diuresis. 14. Tachybradycardia, likely SSS. may need EP consult/PPM. ADDITIONAL COMMENTS: incidental findings of Heterogenous area of white matter hypodensity and gyral irregularity at the left occipital lobe concerning for underlying infiltrative mass, Unclear as to the symptomatology. Neuro consulted. CAD is stable. -- SUBJECTIVE -- HPI: This 67-year-old gentleman has a past medical history significant for insulin-dependent diabetes with neuropathy, CVA, hypertension, hyperlipidemia and AV fistula repair in the neck, had complaints of progressive fatigue and tiredness and was recently admitted to an outside hospital with a viral illness/pneumonia. Troponin was found to be elevated and echocardiogram showed dilated cardiomyopathy and wall motion abnormalities. The patient underwent selective coronary angiogram by Dr. Katya Cruz on 04/28/2023 which showed critical distal left main disease involving the origin of the left anterior descending, 99%, distal left main 90%, ostium in origin of the left circumflex 90% and a big ramus intermedius with 99% stenosis, first obtuse marginal is small with 80% focal disease, left ventricular ejection fraction 50-55% with anteroapical hypokinesis and end-diastolic pressure of 25. He was admitted to [facility] and on 05/03/2023, and underwent Urgent CABG X 2 using cardiopulmonary bypass Left internal mammary artery bypass to the left anterior descending and first diagonal coronary arteries (sequential graft) Reversed saphenous vein graft to the ramus intermedius coronary artery by Dr Wilfrido Gray. Postoperatively he developed atrial fibrillation with rapid ventricular response requiring IV and oral amiodarone. He also was found to have COVID positivity but was essentially asymptomatic from that. He was discharged home in stable condition on 05/08/2023. He presented to [facility] on 05/14/2023 with complaints of generalized weakness and fatigue that started after breakfast on the day of presentation. He was reportedly hypotensive upon presentation and his troponin was borderline elevated as well as his lactic acid. He received aspirin at the outside hospital. He was transferred to [facility] for suspected non-ST segment elevation myocardial infarction. Upon arrival his symptoms of generalized weakness had already improved and his blood pressure had stabilized. PATIENT NARRATIVE: 05/15: Today the patient indicated to the nurse that on the day of admission, 05/14, he had actually experienced disorientation, along with blurred and double vision and "could not find the words to speak". He also said that he did not remember having told anybody in the hospital about these symptoms. He is now reporting some double vision specially in the right eye and having aphasia, and stuttering. There is minimal right facial droop on evaluation. He has a previous history of cerebrovascular accident with minimal left sided residual weakness. Stat CT scan and CT angiogram of the head and neck 05/15/22 show: 1. Heterogenous area of white matter hypodensity and gyral irregularity at the left occipital lobe concerning for underlying infiltrative mass. Recommend further evaluation with MRI brain with and without contrast. 2. Prominent left basal vein of Max which is opacified similar to the cerebral arteries suggesting some underlying fistulous connection, however none is clearly identifiable. This may be related to the abnormality at the left occipital lobe as described above. 3. No aneurysm, occlusion, or dissection. No intracranial hemorrhage is seen. Neurology consultation, Dr Nadiya Bergman. pt says that he sees neurologist Dr Andre Chanel and neurosurgeon Dr Asa Romo at [facility] (for his h/o CVA) He also has atrial fibrillation with moderate ventricular response, down to bradycardia and sinus rhythm at times. Discussed with Dr. Keagan Heath. -REVIEW OF SYSTEMS- GENERAL: weakness, fatigue EYES: Negative for blurry vision. No diplopia. EARS/NOSE/THROAT: Negative for sore throat. No otalgia. No rhinorrhea. RESPIRATORY: Negative for dyspnea or wheeze. No cough. CARDIOVASCULAR: Negative for chest pain or palpitations. No extremity swelling. GASTROINTESTINAL: Negative for abdominal pain or nausea. No emesis. No diarrhea. GENITOURINARY: Negative for dysuria, frequency, or urgency. No gross hematuria. MUSCULOSKELETAL: Negative for joint stiffness, pain, or arthralgias. SKIN: Negative for rashes. No pruritus. NEUROLOGICAL: Difficulty finding words, stuttering, double vision in the left eye. ENDOCRINE: Negative for cold intolerance, heat intolerance, polyphagia, polydipsia, polyuria, weight change, fatigue. HEMATALOGIC / LYMPHORETICULAR: Negative for excessive bleeding, unusual masses. -- OBJECTIVE -- VITALS (05/14 12:15 - 05/15 12:15): Temperature F: 98.3 (97.9 - 98.3) Temperature C: 36.5 (36.5 - 37.0) Temperature source: Oral Pulse Rate 63 (61 - 81) Respiratory rate: 17 (7 - 25) Blood pressure: 130/65 (124/64 - 165/91) Blood pressure source: Monitor I/Os (05/14 07:00 - 05/15 07:00): Net -600 Output 600 -EXAM- GENERAL: GENERAL: Elderly male, NAD. VITAL SIGNS: Weight is 78.2 kilograms. Body mass index 27. HEENT: Head is atraumatic. Pupils are reactive to light and accommodation. Extraocular muscles intact. NECK: Supple. No thyromegaly. No JVD. CARDIOVASCULAR: Regular rate and rhythm. CHEST: sternotomy. 2/2 CTs removed. LUNGS: Clear to auscultation. ABDOMEN: Soft, nontender. EXTREMITIES: No edema, cyanosis or clubbing. Pedal pulses palpable. NEUROLOGIC: Minimal chronic left-sided weakness. Intermittent aphasia. -- DATA -- MEDICATIONS morphine SULFATE 2 MG IV Q6H PRN DEXTROSE 50%-WATER 25 ML IV ASDIR PRN FERROUS SULFATE 325 MG PO BID LACTULOSE 30 ML PO BID PRN METOPROLOL TARTRATE 5 MG IV Q6H PRN carvediloL 25 MG PO Q12HR clopidogreL 75 MG PO DAILY FUROSEMIDE 20 MG PO QAM DOCUSATE SODIUM 100 MG PO BID ONDANSETRON HCL/PF 4 MG IV Q6H PRN AMIODARONE HCL 200 MG PO DAILY LOSARTAN POTASSIUM 25 MG PO DAILY GLUCAGON 1 MG IM ASDIR PRN FINASTERIDE 5 MG PO BEDTIME morphine SULFATE 2 MG IV Q3H PRN INSULIN LISPRO 0 UNITS SUBQ C MEALS HS ONDANSETRON 4 MG PO Q6H PRN ASPIRIN 81 MG PO DAILY ACETAMINOPHEN 650 MG PO Q4H PRN cloNIDine HCL 0.1 MG PO Q8H PRN NITROGLYCERIN 0.4 MG SL Q5M PRN IOPAMIDOL 76% 100 ML IV ONCE (PRN) SPIRONOLACTONE 25 MG PO DAILY TAMSULOSIN 0.4 MG PO DAILY INSULIN GLARGINE 20 UNITS SUBQ BEDTIME ATORVASTATIN CALCIUM 40 MG PO BEDTIME LABS GLU BED (05/15/23 11:52) GLUBED 331 *H GLU BED (05/15/23 07:29) GLUBED 166 H GLU BED (05/14/23 18:59) GLUBED 311 *H LACTIC ACID (05/14/23 16:42) LACTIC ACID 1.60 CBC W/AUTO DIFF (05/14/23 16:42) WHITE BLOOD CELL 14.2H H RED BLOOD CELL 3.76 L HEMOGLOBIN 10.2L L HEMATOCRIT 30.2L L MEAN CELL VOLUME 80.3 MEAN CELL HGB 27.1 MEAN CELL HGB CONCENTRATION 33.8 RED CELL DISTRIBUTION WIDTH 14.0 PLATELET COUNT 315 MEAN PLATELET VOLUME 9.4 NEUTROPHIL % 78.2 H LYMPHOCYTE % 11.4 L MONOCYTE % 6.6 EOSINOPHIL % 2.2 BASOPHIL % 0.4 NEUTROPHIL # 11.11 H LYMPHOCYTE # 1.62 MONOCYTE # 0.94 H EOSINOPHIL # 0.31 BASOPHIL # 0.05 TROPI (05/14/23 16:42) TROPONIN-I 80.0 BNP (05/14/23 16:42) B-TYPE NATRIURETIC PEPTIDE 430 H COMPREHENSIVE METABOLIC PANEL (05/14/23 16:42) SODIUM 134 L POTASSIUM 4.2 CHLORIDE 100 CARBON DIOXIDE 27 GLUCOSE 319 H BLOOD UREA NITROGEN 8 L GLOMERULAR FILTRATION RATE >=60 max estimate CREATININE 0.80 TOTAL PROTEIN 5.7 ALBUMIN 3.5 CALCIUM 8.0 L BILIRUBIN TOTAL 0.6 SGOT/AST 14 SGPT/ALT 15 ALKALINE PHOSPHATASE 131.0 H -- QUALITY -- -MEDICATIONS- - I attest that the foregoing medication list in the medical record is true, accurate, and complete to the best of my knowledge. -- ATTESTATION -- TIME SPENT ON PATIENT CARE: - Direct 40 minutes - > 50% of time spent on Counseling/Care Coordination CARE ACTIVITIES / CARE COORDINATION: - I have reviewed the history and repeated the gupta elements - I have seen and examined this patient - I have reviewed the progress in the clinical course since the last examination - I have discussed the patient's condition with other members of the care team Signed in PatientKeeper by Rajesh Kilgore MD on 05/15/23 at 19:08 at 1908 ATTE NTION *EDITS and/or ADDENDA must be made in Patient Keeper for this note. * * Edits and ammendments created in [employer] are not visible * * in Patient Keeper or the legal medical record (HPF). * RPT #: [id number] END OF REPORT [facility] 2023-05-15 08:38:00 [facility] ([facility]) Cardiology Consultation REPORT #: [id number] REPORT STATUS: Signed DATE: 05/15/23 TIME: 837 PATIENT: LUIS GUZMÁN UNIT #: [id number] ROOM #: [id number] BED: A : 55 AGE: 67 SEX: M ATTEND: Rajesh Kilgore MD ADM AUTHOR: Mckay Meyer ATTE NTANGI *EDITS and/or ADDENDA must be made in Patient Keeper for this note. * * Edits and ammendments created in [facility] are not visible * * in Patient Keeper or the legal medical record (HPF). * -- CO-SIGNATURE -- COMMENTS: The patient was seen on rounds with ZOHRA Rosario. The patient has no complaints Examination demonstrates normal heart sounds and clear lung mcmanus. Impression and plan The patient is a 67-year-old gentleman with a history of coronary artery disease with previous bypass surgery on May 03. The patient had been admitted to [facility] with generalized fatigue and blood work demonstrated a borderline troponin and he was transferred here for further care and evaluation for his diplopia and aphasia. CT scan did not demonstrate any new lesions. Neurology has been consulted. Signed in PatientKeeper by JUAN M WEI MD on 06/19/23 at 11:49 -- ASSESSMENT AND PLAN -- PROBLEMS: 1: Acute weakness A/P: The patient is a 67-year-old gentleman (patient of Dr. Katya Cruz) has a PMHx of coronary artery disease (s/p CABG x2V on 05/03/23), h/o CVA (minimal left sided residual weakness), hyperlipidemia, hypertension, diabetes (insulin-dependent), neuropathy, AV fistula repair in the neck. On 04/28/23, he underwent selective coronary angiogram at [facility] for worsening fatigue and possibly chest discomfort and showed distal left main disease (90%), LAD (99%), ostial LCx (90%), RI (99%), OM1 (small, 80%). Echo showed an EF of 50-55%, and restrictive physiology with diastolic dysfunction. He was transferred here for urgent bypass surgery with Dr. Wilfrido Gray and had 2 Vessel CABG (WERNER-LAD and SVG-RI) on 04/2623. Post-op he went into atrial fibrillation with RVR, started on IV and PO amiodarone. He tested COVID positive, was asymptomatic. He was discharged on stable condition on 05/08/23. On 05/14/22, he presented at [facility] with complaint of generalized weakness and fatigue that started earlier that day after breakfast. He was found to be hypotensive. Blood work showed borderline troponin and lactic acid, and was suspected NSTEMI. He was transferred here to [facility] for higher level of care. The patient seen in the room, alert, oriented and in no acute distress. He states on 05/14/22 after eating breakfast had sudden onset of generalized weakness, blurry vision and "could not find the words to speak", loss of balance that lasted "short time". Patient is currently reporting right eye double vision, has aphasia, slight right facial drooping on examination and stuttering. STAT CTA head/neck ordered and neurology consulted. - STAT CTA head/neck showed heterogenous area of white matter hypodensity and gyral irregularity at the left occipital lobe concerning for underlying infiltrative mass, prominent left basal vein of Max which is opacified similar to the cerebral arteries suggesting some underlying fistulous connection, however none is clearly identifiable. This may be related to the abnormality at the left occipital lobe as described above. - Dr. Bergman with neurology services consulted. - Patient see Dr. Andre Chanel (neurologist) and Dr. Asa Romo at [facility] (for h/o CVA) as outpatient 2: Atrial fibrillation A/P: - Atrial fibrillation, to sinus rhythm and down to bradycardia sometimes - On PO amiodarone 200mg daily 3: Coronary artery disease A/P: - S/p CABG x 2V on 05/03/23 - On DAPT with aspirin and clopidogrel - On atorvastatin 40mg daily and carvedilol 25mg BID - On PO furosemid 20mg daily -- HISTORY -- CONSULT REQUESTED BY: Rajesh Kilgore MD REASON FOR CONSULT: Acute weakness CHIEF COMPLAINT: Acute weakness HPI: The patient is a 67-year-old gentleman (patient of Dr. Katya Cruz) has a PMHx of coronary artery disease (s/p CABG x2V on 05/03/23), h/o CVA (minimal left sided residual weakness), hyperlipidemia, hypertension, diabetes (insulin-dependent), neuropathy, AV fistula repair in the neck. On 04/28/23, he underwent selective coronary angiogram at [facility] for worsening fatigue and possibly chest discomfort and showed distal left main disease (90%), LAD (99%), ostial LCx (90%), RI (99%), OM1 (small, 80%). Echo showed an EF of 50-55%, and restrictive physiology with diastolic dysfunction. He was transferred here for urgent bypass surgery with Dr. Wilfrido Gray and had 2 Vessel CABG (WERNER-LAD and SVG-RI) on 04/2623. Post-op he went into atrial fibrillation with RVR, started on IV and PO amiodarone. He tested COVID positive, was asymptomatic. He was discharged on stable condition on 05/08/23. On 05/14/22, he presented at [facility] with complaint of generalized weakness and fatigue that started earlier that day after breakfast. He was found to be hypotensive. Blood work showed borderline troponin and lactic acid, and was suspected NSTEMI. He was transferred here to [facility] for higher level of care. The patient seen in the room, alert, oriented and in no acute distress. He states on 05/14/22 after eating breakfast had sudden onset of generalized weakness, blurry vision and "could not find the words to speak", loss of balance that lasted "short time". Patient is currently reporting right eye double vision, has aphasia, slight right facial drooping on examination and stuttering. STAT CTA head/neck ordered and neurology consulted. PAST MEDICAL HISTORY: Coronary artery disease (s/p CABG x2V on 05/03/23) H/o CVA (minimal left sided residual weakness) Hyperlipidemia Hypertension Diabetes (insulin-dependent) Neuropathy AV fistula repair in the neck PAST SURGICAL HISTORY: CABG x 2V on 05/03/23 [facility] on 04/28/23 AV fistula repair in the neck FAMILY HISTORY: Noncontributory -SOCIAL HISTORY- -TOBACCO USE- DETAILS/COMMENTS: Denies -VAPING/INHALED SOLVENTS- DETAILS/COMMENTS: Denies -ALCOHOL USE- DETAILS/COMMENTS: Denies -DRUG USE- DETAILS/COMMENTS: Denies -- ALLERGIES/HOME MEDS -- ALLERGIES: No Known Allergies (UNKNOWN - Allergy) [EXTERNAL] No Known Allergies (UNKNOWN - External allergies are for display only, consider adding to medical record for drug interaction check) HOME MEDICATIONS: Amiodarone Tab (Cordarone Tab) 400 MG PO Q12H aspirin chewable tablet 81 MG PO DAILY Atorvastatin Tab (Lipitor Tab) 80 MG PO BEDTIME Carvedilol Tab (Coreg Tab) 25 MG PO BID MEALS Clopidogrel Tab (Plavix Tab) 75 MG PO DAILY Ferrous Sulfate Tab (Feosol Tab) 325 MG PO DAILY Finasteride Tab (Proscar Tab) 5 MG PO BEDTIME Insulin (Lispro) Inj (HumaLOG Inj) 3 UNITS SubQ C MEALS Losartan Tab (Cozaar Tab) 25 MG PO DAILY metFORMIN Tab (Glucophage Tab) 1000 MG PO BID Spironolactone Tab (Aldactone Tab) 25 MG PO DAILY Tamsulosin Cap (Flomax Cap) 0.4 MG PO DAILY Tresiba FlexTouch U-100 100 unit/mL (3 mL) subcutaneous insulin pen (insulin degludec) 36 UNITS SubQ DAILY -- SUBJECTIVE -- -REVIEW OF SYSTEMS- GENERAL: Negative for fever, malaise, fatigue. EYES: Negative for blurry vision. No diplopia. EARS/NOSE/THROAT: Negative for sore throat. No otalgia. No rhinorrhea. + right eye double vision RESPIRATORY: Negative for dyspnea or wheeze. No cough. CARDIOVASCULAR: Negative for chest pain or palpitations. No extremity swelling. GASTROINTESTINAL: Negative for abdominal pain or nausea. No emesis. No diarrhea. GENITOURINARY: Negative for dysuria, frequency, or urgency. No gross hematuria. MUSCULOSKELETAL: Negative for joint stiffness, pain, or arthralgias. SKIN: Negative for rashes. No pruritus. NEUROLOGICAL: Negative for headache. No vertigo. Denies paresthesias. + aphasia and minimal right facial drooping PSYCHIATRIC: Negative for specific complaints. -- OBJECTIVE -- VITALS (05/14 07:05 - 05/15 07:05): Temperature F: 98.3 (97.9 - 98.3) Temperature C: 37.0 (36.6 - 37.0) Temperature source: Oral Pulse Rate 63 (61 - 81) Respiratory rate: 17 (7 - 25) Blood pressure: 130/65 (124/64 - 165/91) Blood pressure source: Monitor I/Os (05/14 07:00 - 05/15 07:00): Net -600 Output 600 -EXAM- OTHER: Constitutional: Well developed, well nourished patient, in no acute distress. Derm/Integumentary: Warm and dry with no rashes, sores, or lesions. HEENT: Eyes-sclera clear and white, symmetrical w/ no lag. ENT - Palate and gums pink, mucosa moist, no pallor/cyanosis. Neck: supple with no masses, no thyromegaly, No JVD. Respiratory: Clear to auscultation. Chest: Median sternotomy intact, no drainage Heart: S1S2+, Regular Rate and Rhythm, No murmurs, rubs, or gallops. Gastrointestinal: + Bowel Sounds all quadrants. Soft, nontender with no masses or organomegaly; No HJR. Musculoskeletal: Equal strength in all extremities. No weakness. Neurology: Alert and oriented X 3. Calm, cooperative affect. No focal deficits. Extremities: + peripheral pulses. No clubbing, cyanosis. No lower extremity edema. -- DATA -- MEDICATIONS morphine SULFATE 2 MG IV Q6H PRN DEXTROSE 50%-WATER 25 ML IV ASDIR PRN FERROUS SULFATE 325 MG PO BID LACTULOSE 30 ML PO BID PRN METOPROLOL TARTRATE 5 MG IV Q6H PRN SPIRONOLACTONE 25 MG PO DAILY carvediloL 25 MG PO Q12HR TAMSULOSIN 0.4 MG PO DAILY clopidogreL 75 MG PO DAILY INSULIN GLARGINE 20 UNITS SUBQ BEDTIME DOCUSATE SODIUM 100 MG PO BID ONDANSETRON HCL/PF 4 MG IV Q6H PRN AMIODARONE HCL 200 MG PO DAILY LOSARTAN POTASSIUM 25 MG PO DAILY GLUCAGON 1 MG IM ASDIR PRN FINASTERIDE 5 MG PO BEDTIME morphine SULFATE 2 MG IV Q3H PRN INSULIN LISPRO 0 UNITS SUBQ C MEALS HS ATORVASTATIN CALCIUM 40 MG PO BEDTIME ONDANSETRON 4 MG PO Q6H PRN ASPIRIN 81 MG PO DAILY ACETAMINOPHEN 650 MG PO Q4H PRN cloNIDine HCL 0.1 MG PO Q8H PRN NITROGLYCERIN 0.4 MG SL Q5M PRN LABS GLU BED (05/14/23 18:59) GLUBED 311 *H LACTIC ACID (05/14/23 16:42) LACTIC ACID 1.60 CBC W/AUTO DIFF (05/14/23 16:42) WHITE BLOOD CELL 14.2H H RED BLOOD CELL 3.76 L HEMOGLOBIN 10.2L L HEMATOCRIT 30.2L L MEAN CELL VOLUME 80.3 MEAN CELL HGB 27.1 MEAN CELL HGB CONCENTRATION 33.8 RED CELL DISTRIBUTION WIDTH 14.0 PLATELET COUNT 315 MEAN PLATELET VOLUME 9.4 NEUTROPHIL % 78.2 H LYMPHOCYTE % 11.4 L MONOCYTE % 6.6 EOSINOPHIL % 2.2 BASOPHIL % 0.4 NEUTROPHIL # 11.11 H LYMPHOCYTE # 1.62 MONOCYTE # 0.94 H EOSINOPHIL # 0.31 BASOPHIL # 0.05 TROPI (05/14/23 16:42) TROPONIN-I 80.0 BNP (05/14/23 16:42) B-TYPE NATRIURETIC PEPTIDE 430 H COMPREHENSIVE METABOLIC PANEL (05/14/23 16:42) SODIUM 134 L POTASSIUM 4.2 CHLORIDE 100 CARBON DIOXIDE 27 GLUCOSE 319 H BLOOD UREA NITROGEN 8 L GLOMERULAR FILTRATION RATE >=60 max estimate CREATININE 0.80 TOTAL PROTEIN 5.7 ALBUMIN 3.5 CALCIUM 8.0 L BILIRUBIN TOTAL 0.6 SGOT/AST 14 SGPT/ALT 15 ALKALINE PHOSPHATASE 131.0 H -- ATTESTATION -- CARE ACTIVITIES / CARE COORDINATION: - I have reviewed the history and repeated the gupta elements - I have seen and examined this patient - I have reviewed the progress in the clinical course since the last examination - I have discussed the patient's condition with other members of the care team ADDITIONAL DETAIL: Plan of care discussed with Dr. Juan M Wei Signed in PatientKeeper by Mckay Meyer on 05/15/23 at 22:02 Cosigned by JUAN M WEI MD on 06/19/23 at 11:49 at 1149 at 1149 ATTE NTION *EDITS and/or ADDENDA must be made in Patient Keeper for this note. * * Edits and ammendments created in [facility] are not visible * * in Patient Keeper or the legal medical record ([facility]). * RPT #: [id number] END OF REPORT [facility] 2023-05-14 21:59:00 [facility] ([facility]) Hospitalist Carmina Wild REPORT #: [id number] REPORT STATUS: Signed DATE: 05/14/23 TIME: 2158 PATIENT: LUIS GUZMÁN UNIT #: [id number] ROOM #: [id number] BED: A : 55 AGE: 67 SEX: M ATTEND: Rajesh Kilgore MD ADM AUTHOR: Rajesh Kilgore MD ATTE NTION *EDITS and/or ADDENDA must be made in Patient Keeper for this note. * * Edits and ammendments created in [facility] are not visible * * in Patient Keeper or the legal medical record ([facility]). * -- HISTORY -- ADMISSION DATE: 2023-05-14 CHIEF COMPLAINT: Elevated troponin at an outside ER. Weakness. HPI: This 67-year-old gentleman has a past medical history significant for insulin-dependent diabetes with neuropathy, CVA, hypertension, hyperlipidemia and AV fistula repair in the neck, had complaints of progressive fatigue and tiredness and was recently admitted to an outside hospital with a viral illness/pneumonia. Troponin was found to be elevated and echocardiogram showed dilated cardiomyopathy and wall motion abnormalities. The patient underwent selective coronary angiogram by Dr. Katya Cruz on 04/28/2023 which showed critical distal left main disease involving the origin of the left anterior descending, 99%, distal left main 90%, ostium in origin of the left circumflex 90% and a big ramus intermedius with 99% stenosis, first obtuse marginal is small with 80% focal disease, left ventricular ejection fraction 50-55% with anteroapical hypokinesis and end-diastolic pressure of 25. He was admitted to [facility] and on 05/03/2023, and underwent Urgent CABG X 2 using cardiopulmonary bypass Left internal mammary artery bypass to the left anterior descending and first diagonal coronary arteries (sequential graft) Reversed saphenous vein graft to the ramus intermedius coronary artery by Dr Wilfrido Gray. Postoperatively he developed atrial fibrillation with rapid ventricular response requiring IV and oral amiodarone. He also was found to have COVID positivity but was essentially asymptomatic from that. He was discharged home in stable condition on 05/08/2023. He presented to [facility] on 05/14/2023 with complaints of generalized weakness and fatigue that started after breakfast on the day of presentation. He was reportedly hypotensive upon presentation and his troponin was borderline elevated as well as his lactic acid. He received aspirin at the outside hospital. He was transferred to [facility] for suspected non-ST segment elevation myocardial infarction. Upon arrival his symptoms of generalized weakness had already improved and his blood pressure had stabilized. He denied any chest pain or shortness of breath. PAST MEDICAL HISTORY: 1. Hypertension. 2. Hyperlipidemia. 3. Diabetes mellitus type 2, requiring insulin. 4. Diabetic neuropathy. 5. AV fistula repair in the neck with drainage of an abscess in the past. 6. History of cerebrovascular accidents, minimal left-sided weakness. 7. CABG X 2 using cardiopulmonary bypass Left internal mammary artery bypass to the left anterior descending and first diagonal coronary arteries (sequential graft) Reversed saphenous vein graft to the ramus intermedius coronary artery by Dr Wilfrido Gray 05/03/23. 8. Perioperative AF. 9. Covid positivity 04/2023. 10. BPH. PAST SURGICAL HISTORY: as above FAMILY HISTORY: heart problems -SOCIAL HISTORY- -TOBACCO USE- DETAILS/COMMENTS: none -VAPING/INHALED SOLVENTS- DETAILS/COMMENTS: none -ALCOHOL USE- DETAILS/COMMENTS: none -DRUG USE- DETAILS/COMMENTS: none MARITAL STATUS: LIVING SITUATION: home -- ALLERGIES/HOME MEDS -- ALLERGIES: No Known Allergies (UNKNOWN - Allergy) [EXTERNAL] No Known Allergies (UNKNOWN - External allergies are for display only, consider adding to medical record for drug interaction check) HOME MEDICATIONS: Amiodarone Tab (Cordarone Tab) 400 MG PO Q12H aspirin chewable tablet 81 MG PO DAILY Atorvastatin Tab (Lipitor Tab) 80 MG PO BEDTIME Carvedilol Tab (Coreg Tab) 25 MG PO BID MEALS Clopidogrel Tab (Plavix Tab) 75 MG PO DAILY Ferrous Sulfate Tab (Feosol Tab) 325 MG PO DAILY Finasteride Tab (Proscar Tab) 5 MG PO BEDTIME Insulin (Lispro) Inj (HumaLOG Inj) 3 UNITS SubQ C MEALS Losartan Tab (Cozaar Tab) 25 MG PO DAILY metFORMIN Tab (Glucophage Tab) 1000 MG PO BID Spironolactone Tab (Aldactone Tab) 25 MG PO DAILY Tamsulosin Cap (Flomax Cap) 0.4 MG PO DAILY Tresiba FlexTouch U-100 100 unit/mL (3 mL) subcutaneous insulin pen (insulin degludec) 36 UNITS SubQ DAILY -- SUBJECTIVE -- -REVIEW OF SYSTEMS- GENERAL: weakness, fatigue EYES: Negative for blurry vision. No diplopia. EARS/NOSE/THROAT: Negative for sore throat. No otalgia. No rhinorrhea. RESPIRATORY: Negative for dyspnea or wheeze. No cough. CARDIOVASCULAR: Negative for chest pain or palpitations. No extremity swelling. GASTROINTESTINAL: Negative for abdominal pain or nausea. No emesis. No diarrhea. GENITOURINARY: Negative for dysuria, frequency, or urgency. No gross hematuria. MUSCULOSKELETAL: Negative for joint stiffness, pain, or arthralgias. SKIN: Negative for rashes. No pruritus. NEUROLOGICAL: Negative for headache. No vertigo. Denies paresthesias. PSYCHIATRIC: Negative for specific complaints. ENDOCRINE: Negative for cold intolerance, heat intolerance, polyphagia, polydipsia, polyuria, weight change, fatigue. HEMATALOGIC / LYMPHORETICULAR: Negative for excessive bleeding, unusual masses. -- OBJECTIVE -- VITALS (05/13 21:59 - 05/14 21:59): Temperature F: 98.3 (97.9 - 98.3) Temperature C: 36.7 (36.6 - 36.7) Temperature source: Oral Pulse Rate 69 (65 - 69) Respiratory rate: 16 (16 - 19) Blood pressure: 124/64 (124/64 - 157/91) Blood pressure source: Monitor -EXAM- GENERAL: GENERAL: Elderly male, NAD. VITAL SIGNS: Weight is 78.2 kilograms. Body mass index 27. HEENT: Head is atraumatic. Pupils are reactive to light and accommodation. Extraocular muscles intact. NECK: Supple. No thyromegaly. No JVD. CARDIOVASCULAR: Regular rate and rhythm. CHEST: sternotomy. 2/2 CTs removed. LUNGS: Clear to auscultation. ABDOMEN: Soft, nontender. EXTREMITIES: No edema, cyanosis or clubbing. Pedal pulses palpable. NEUROLOGIC: No focal deficit. -- DATA -- LABS GLU BED (05/14/23 18:59) GLUBED 311 *H LACTIC ACID (05/14/23 16:42) LACTIC ACID 1.60 CBC W/AUTO DIFF (05/14/23 16:42) WHITE BLOOD CELL 14.2H H RED BLOOD CELL 3.76 L HEMOGLOBIN 10.2L L HEMATOCRIT 30.2L L MEAN CELL VOLUME 80.3 MEAN CELL HGB 27.1 MEAN CELL HGB CONCENTRATION 33.8 RED CELL DISTRIBUTION WIDTH 14.0 PLATELET COUNT 315 MEAN PLATELET VOLUME 9.4 NEUTROPHIL % 78.2 H LYMPHOCYTE % 11.4 L MONOCYTE % 6.6 EOSINOPHIL % 2.2 BASOPHIL % 0.4 NEUTROPHIL # 11.11 H LYMPHOCYTE # 1.62 MONOCYTE # 0.94 H EOSINOPHIL # 0.31 BASOPHIL # 0.05 TROPI (05/14/23 16:42) TROPONIN-I 80.0 BNP (05/14/23 16:42) B-TYPE NATRIURETIC PEPTIDE 430 H COMPREHENSIVE METABOLIC PANEL (05/14/23 16:42) SODIUM 134 L POTASSIUM 4.2 CHLORIDE 100 CARBON DIOXIDE 27 GLUCOSE 319 H BLOOD UREA NITROGEN 8 L GLOMERULAR FILTRATION RATE >=60 max estimate CREATININE 0.80 TOTAL PROTEIN 5.7 ALBUMIN 3.5 CALCIUM 8.0 L BILIRUBIN TOTAL 0.6 SGOT/AST 14 SGPT/ALT 15 ALKALINE PHOSPHATASE 131.0 H -- ASSESSMENT AND PLAN -- GENERAL ASSESSMENT: ASSESSMENT AND PLAN: 1. Acute weakness and tiredness, etiology unclear. However, the patient was recently positive with COVID-19, previously asymptomatic. It is possible that this may be a sequelae of the COVID positivity. Rule out any additional etiologies. He may need CT scan of the head. 2. Borderline elevated troponin, likely sequelae of recent multivessel CABG. H/O CABG X 2, Left internal mammary artery bypass to the left anterior descending and first diagonal coronary arteries (sequential graft) Reversed saphenous vein graft to the ramus intermedius coronary artery by Dr Wilfrido Gray 05/03/23. CAD appears to be clinically stable. Continue guideline directed medical therapy including beta-blockers statins aspirin and clopidogrel. 3. Diabetes mellitus type 2, not well controlled. Hemoglobin A1c is 8.2. Continue long-acting and short-acting insulins. 4. Hypertension, Continue current home medication regimen of beta-blockers and ARB. 5. Benign prostatic hypertrophy. Continue finasteride and tamsulosin. 6. History of cerebrovascular accident, with minimal left-sided residual weakness. 7. Chronic kidney disease stage II. 8. Anemia. 9. Lactic acidosis, transient, etiology unclear. No definite evidence of infection or sepsis. 10. Leukocytosis, reactive. 11. COVID positivity, recent. 12. Atrial fibrillation, perioperative. Converted to sinus rhythm with amiodarone. He has already been loaded with amiodarone, continue maintenance dose 200 mg daily. 13. Elevated BNP, no definite evidence of CHF. ADDITIONAL COMMENTS: Plan of care discussed with the emergency room services and with the consultants. -- QUALITY -- -MEDICATIONS- - I attest that the foregoing medication list in the medical record is true, accurate, and complete to the best of my knowledge. -- ATTESTATION -- TIME SPENT ON PATIENT CARE: - Direct 75 minutes - > 50% of time spent on Counseling/Care Coordination CARE ACTIVITIES / CARE COORDINATION: - I have reviewed the history and repeated the gupta elements - I have seen and examined this patient - I have discussed the patient's condition with other members of the care team Signed in PatientKeeper by Rajesh Kilgore MD on 05/16/23 at 21:28 at 2128 ATTE NTION *EDITS and/or ADDENDA must be made in Patient Keeper for this note. * * Edits and ammendments created in [employer] are not visible * * in Patient Keeper or the legal medical record ([facility]). * RPT #: [id number] END OF REPORT [facility] 2023-05-14 21:57:00 [facility] ([facility]) Med Order Sheet REPORT #: [id number] REPORT STATUS: Signed DATE: 05/14/23 TIME: 2156 PATIENT: LUIS GUZMÁN UNIT #: [id number] ROOM #: [id number] BED: A : 55 AGE: 67 SEX: M ATTEND: Rajesh Kilgore MD ADM AUTHOR: Rajesh Kilgore MD ATTE NTION *EDITS and/or ADDENDA must be made in Patient Keeper for this note. * * Edits and ammendments created in [employer] are not visible * * in Patient Keeper or the legal medical record ([facility]). * Admission Medication Reconciliation -- CONTINUED / CHANGED HOME MEDICATIONS -- Home: aspirin chewable tablet 81 MG PO DAILY Hosp: Existing: Aspirin EC Tab (Ecotrin Tab) 81MG PO DAILY stopping on 06/14 at 09:01 Home: Atorvastatin Tab (Lipitor Tab) 80 MG PO BEDTIME Hosp: Existing: Atorvastatin Tab (Lipitor Tab) 40MG PO BEDTIME stopping on 06/13 at 21:01 Home: Carvedilol Tab (Coreg Tab) 25 MG PO BID MEALS Hosp: Existing: CARVEdilol Tab (Coreg Tab) 25MG PO Q12HR stopping on 06/13 at 21:01 Home: Clopidogrel Tab (Plavix Tab) 75 MG PO DAILY Hosp: Existing: Clopidogrel Tab (Plavix Tab) 75MG PO DAILY stopping on 06/14 at 09:01 Home: Ferrous Sulfate Tab (Feosol Tab) 325 MG PO DAILY Hosp: Existing: Ferrous Sulfate Tab (Feosol Tab) 325MG PO BID stopping on 06/13 at 21:01 Home: Finasteride Tab (Proscar Tab) 5 MG PO BEDTIME Hosp: Finasteride Tab (Proscar Tab) 5 MG PO Now and then BEDTIME Home: Insulin (Lispro) Inj (HumaLOG Inj) 3 UNITS SubQ C MEALS Hosp: Existing: Insulin (Lispro) Inj (HumaLOG Inj) 0 UNITS SubQ C MEALS HS stopping on 06/13 at 21:01 Home: Losartan Tab (Cozaar Tab) 25 MG PO DAILY Hosp: Losartan Tab (Cozaar Tab) 25 MG PO DAILY Home: Spironolactone Tab (Aldactone Tab) 25 MG PO DAILY (Take for SBP >140) Hosp: Spironolactone Tab (Aldactone Tab) 25 MG PO DAILY - Take for SBP >140 Home: Tamsulosin Cap (Flomax Cap) 0.4 MG PO DAILY Hosp: Tamsulosin Cap (Flomax Cap) 0.4 MG PO Now and then DAILY Home: Tresiba FlexTouch U-100 100 unit/mL (3 mL) subcutaneous insulin pen (insulin degludec) 36 UNITS SubQ DAILY Hosp: Existing: Insulin (Glargine) Inj (Lantus/Semglee Inj ) 20UNITS SubQ BEDTIME stopping on 06/13 at 21:01 -- STOPPED HOME MEDICATIONS -- Home: Amiodarone Tab (Cordarone Tab) 400 MG PO Q12H Home: metFORMIN Tab (Glucophage Tab) 1000 MG PO BID at 2157 ATTE NTION *EDITS and/or ADDENDA must be made in Patient Keeper for this note. * * Edits and ammendments created in [facility] are not visible * * in Patient Keeper or the legal medical record (HPF). * RPT #: [id number] END OF REPORT [facility] 2023-05-14 16:40:00 [facility] ([facility]) EMERGENCY PROVIDER REPORT REPORT#:[id number] REPORT STATUS: Signed DATE:05/14/23 TIME: 1640 PATIENT: LUIS GUZMÁN UNIT #: [id number] ROOM: [facility] BED: A AGE: 67 SEX: M PCP PHYS: Keagan Heath MD SERVICE AUTHOR: Deuce Ba MD * ALL edits or amendments must be made on the electronic/computer document * HPI-General Illness Free Text HPI Notes Free Text HPI Notes 67-year-old gentleman past medical history including CAD status post CABG, atrial fibrillation, hypertension, hyperlipidemia presents to the emergency department as a transfer from [facility] accepted by cardiothoracic surgery. Patient states that after breakfast this morning, he felt transiently very lightheaded and generally weak. He called EMS and went to [facility] for evaluation. His blood pressure was reportedly initially hypotensive. Workup there also showed elevated troponin 0.096, WBC count of 15.26, lactic acid 2.47. UA at outlying facility was negative. He was transferred here for possible NSTEMI. He was given aspirin, but heparin was initially withheld. On my initial examination, patient is asymptomatic. He states he feels better and that his generalized weakness is improved. He denies any fever, chills, chest pain, shortness of breath, abdominal pain, nausea, vomiting, diarrhea, dysuria or other complaints at this time. General Initial Greet Date/Time 05/14/23 1639 Presentation Chief Complaint T/F potential NSTEMI Review of Systems Free Text ROS Notes Free Text ROS Notes Constitutional: + Fatigue. Eyes: Denies: Blurry Vision, Diplopia. ENT: Denies: Sinus problem, Sore throat. Respiratory: Denies: Cough, Shortness of breath. Cardiovascular: Denies: Chest pain, Palpitations. GI: Denies: Abdominal pain, Nausea, Vomiting. : Denies: Dysuria, Flank pain. Musculoskeletal: Denies: Extremity Pain, Laceration. Hematologic Denies: Bleeding. Neurologic Denies: Change LOC, Confusion, Slurred speech. Past Medical History - Adult Stated Complaint NSTEMI Allergies Coded Allergies: No Known Allergies (04/28/23) Home Medications Active Scripts Losartan (Cozaar) 25 MG PO DAILY Losartan (Cozaar) 25 MG PO DAILY #60 TAB Ref 1 Prov: 05/08/23 Carvedilol (Coreg) 25 MG PO BID MEALS Carvedilol (Coreg) 25 MG PO BID MEALS #60 TAB Ref 1 Prov: 05/08/23 Ferrous Sulfate (Feosol) 325 MG PO DAILY Ferrous Sulfate (Feosol) 325 MG PO DAILY #60 TAB Ref 1 Prov: 05/08/23 Clopidogrel Bisulfate (Plavix) 75 MG PO DAILY Clopidogrel Bisulfate (Plavix) 75 MG PO DAILY #90 TAB Prov: 05/08/23 Spironolactone (Aldactone) 25 MG PO DAILY Spironolactone (Aldactone) 25 MG PO DAILY #90 TAB Prov: 05/08/23 Amiodarone (Pacerone) 400 MG PO Q12H Amiodarone (Pacerone) 400 MG PO Q12H #60 TAB Ref 1 Prov: 05/08/23 Atorvastatin (Lipitor) 80 MG PO BEDTIME Atorvastatin (Lipitor) 80 MG PO BEDTIME #90 TAB Prov: 05/08/23 Reported Medications Finasteride (Proscar) 5 MG PO BEDTIME Tamsulosin Er (Flomax) 0.4 MG PO DAILY Aspirin 81 MG PO DAILY Insulin Degludec (Tresiba Flextouch U-100 (3mL)) 36 UNITS SUBQ DAILY Insulin Lispro (Humalog) 3 UNITS SUBQ C MEALS Metformin 1,000 MG PO BID Discontinued Reported Medications Atorvastatin (Lipitor) 40 MG PO DAILY Irbesartan/Hctz (Avalide 150/12.5 Mg) Nifedipine (Procardia XL) 30 MG PO DAILY Carvedilol (Coreg) 25 MG PO BID MEALS Clopidogrel Bisulfate (Plavix) 75 MG PO DAILY Spironolactone (Aldactone) 25 MG PO DAILY Additional Medical History CAD status post CABG, atrial fibrillation, hypertension, hyperlipidemia Physical Exam Vital Signs Vital Signs First Documented: Result Date Time Pulse Ox 97 / 1636 B/P 157/72 /06 1636 B/P Mean 100 /06 1636 O2 Delivery Room air 05/14 1636 Temp 36.6 05/14 1636 Pulse 65 05/14 1636 Resp 16 05/14 1636 Last Documented: Result Date Time Pulse Ox 100 01/06 1636 B/P 157/72 /06 1636 B/P Mean 100 /06 1636 O2 Delivery Room air 05/14 1636 Temp 36.6 05/14 1636 Pulse 65 06 1636 Resp 16 05/14 1636 Review of Vital Signs Reviewed Free Text PE Notes Free Text PE Notes General/Const: Awake, No acute distress Head: Atrauamtic, Normocephalic Eyes: EOMI. Anicteric sclerae. ENT: Airway patent. Atraumatic. Resp/Chest: Breath sounds normal. Good air movement bilaterally. Normal respiratory effort. No acute respiratory distress. Cardiovascular: Heart rate NL, Regular rhythm, No gallops/rubs appreciated. Abdomen/GI: Non-tender in all abdominal quadrants. No guarding, No rebound. No distention Skin: Warm, Dry Neurologic: Alert Oriented X3, Speech normal. Interpretation Diagnostics Lab Results Interpretation Results Laboratory Tests 05/14/23 1642: [Embedded Image Not Available] Laboratory Tests: 05/14 05/14 05/14 1642 1642 1642 Chemistry Sodium (136 - 145 mmol/L) 134 L Potassium (3.5 - 5.1 mmol/L) 4.2 Chloride (98 - 107 mmol/l) 100 Carbon Dioxide (20 - 31 mmol/L) 27 BUN (9 - 23 mg/dL) 8 L Creatinine (0.70 - 1.30 mg/dL) 0.80 Glomerular Filtr Rate (>60 mL/min) >=60 max estimate Glucose (74 - 106 mg/dL) 319 H Lactic Acid (0.5 - 2.0 mmol/L) 1.60 Calcium (8.7 - 10.4 mg/dL) 8.0 L Total Bilirubin (0.3 - 1.2 mg/dL) 0.6 AST (<34 U/L) 14 ALT (10 - 49 U/L) 15 Total Alk Phosphatase (46 - 116 U/L) 131.0 H B-Natriuretic Peptide (<100 pg/mL) 430 H Total Protein (5.7 - 8.2 g/dL) 5.7 Albumin (3.2 - 4.8 g/dL) 3.5 Hematology WBC (4.8 - 10.8 x10 3/uL) 14.2 H RBC (4.70 - 6.10 x10 6/uL) 3.76 L Hgb (14.0 - 18.0 g/dL) 10.2 L Hct (42.0 - 52.0 %) 30.2 L MCV (80.0 - 94.0 fL) 80.3 MCH (27 - 31 pg) 27.1 MCHC (33 - 36.5 G/DL) 33.8 RDW (12.9 - 16.9 %) 14.0 Plt Count (150 - 440 x10 3/uL) 315 MPV (8.9 - 12.4 fL) 9.4 Neut % (Auto) (42.2 - 75.2 %) 78.2 H Lymph % (Auto) (20.5 - 51.1 %) 11.4 L Summit % (Auto) (1.7 - 9.3 %) 6.6 Eos % (Auto) (0.0 - 7.0 %) 2.2 Baso % (Auto) (0 - 2.5 %) 0.4 Neut # (Auto) (1.80 - 7.70 x10 3/uL) 11.11 H Lymph # (Auto) (1.00 - 4.80 x10 3/uL) 1.62 Summit # (Auto) (0.00 - 0.80 x10 3/uL) 0.94 H Eos # (Auto) (0.00 - 0.45 x10 3/uL) 0.31 Baso # (Auto) (0.0 - 0.20 x10 3/uL) 0.05 05/14 1642 Chemistry Troponin I High Sens (38.73 - 80.22 pg/mL) 80.0 Recent Impressions: RADIOLOGY - XR CHEST 1 V 05/14 1724 Report Impression - Status: SIGNED Entered: 05/14/2023 5589 IMPRESSION: Stable findings from the prior study Impression By: Jacqueline - ALMA SORIA M.D. ECG #1 Interpretation Text/Dict Note Interpretation of EKG performed at 1655: Rate 63, right bundle branch block, unremarkable intervals, new T wave inversions in V2-3. Otherwise morphology fairly similar compared to prior EKG on 05/03/2023 Re-Evaluation MDM Free Text MDM Notes Free Text MDM Notes History and physical as above. Transfer from outlying facility. EKG w/o STEMI. Discussd with Dr. Heath who was amenbable to plan of admission. Discussed patient with and admitted to the inpatient medicine service (spoke with Dr. Kilgore) for further management/workup. Initial WBC 14.2, downtrending from value reported following lab. Initial troponin within upper limits of normal. Lactic acid within normal limits, improvement compared to at outlying facility. Mild hyperglycemia noted, inpatient team graciously started on antihyperglycemic therapy. Patient Discharge Departure Vital Signs/Condition Vital Signs First Documented: Result Date Time Pulse Ox 97 05/14 1636 B/P 157/72 05/14 1636 B/P Mean 100 05/14 1636 O2 Delivery Room air 05/14 163 Temp 36.6 05/14 163 Pulse 65 05/14 1636 Resp 16 05/14 163 Last Documented: Result Date Time Pulse Ox 100 05/14 1636 B/P 157/72 05/14 1636 B/P Mean 100 05/14 1636 O2 Delivery Room air 05/14 1636 Temp 36.6 05/14 1636 Pulse 65 05/14 1636 Resp 16 05/14 1636 All vital signs available at the time of this entry have been reviewed. Clinical Impression Clinical Impression Primary Impression: Generalized weakness Secondary Impressions: Elevated troponin, Hyperglycemia Disposition Decision Hospitalize Hosp Physician Name Rajesh Kilgore Dhara VALENCIA Request Time 173 Request Date 05/14/23 )( Accepts Hospitalization Yes )( Accepted Time 1736 )( Accepted Date 05/14/23 at 0823 [facility] #:[id number] END OF REPORT [facility] 2023-05-14 15:21:04 Patient transferred to [facility] ER for diagnosis of elevated troponin, weakness, hypotension, leukocytosis, lactic acidosis Patient agrees to transfer/admit plan and verbalized understanding of plan of care, family aware of plan Patient awake alert, oriented, resp reg unlabored, skin w/d PIV patent infusing normal saline, no s/s infiltration noted, No adverse reaction to medications given while in ED. Report given to [facility] EMS personnel [facility] 2023-05-14 14:56:27 Nurse Report Report given to SOLIS Schmidt. Chief complaint, assessment findings, infusion verify and orders reviewed. Plan of care discussed with both nurses. Patient/family members verbalized understanding. Adrienne Gonzalez RN [facility] 2023-05-14 12:50:06 Report handed over to SOLIS Quispe [facility] Carmencita Shirley RN [facility] 2023-05-14 11:41:33 Luis Guzmán is a 67 year old male c/o 05/03/23 c/o had open heart surgery 5 days ago at [facility] and still feels weak, states feels this way after taking his 3 BP meds, pt alert no chest pain, suture site healing well, FIER Gianna Encinas RN [facility] 2023-05-08 12:36:00 [facility] ([facility]) Med Order Sheet REPORT #: [id number] REPORT STATUS: Signed DATE: 05/08/23 TIME: 1236 PATIENT: LUIS GUZMÁN UNIT #: [id number] ROOM #: P.0420 BED: A : 55 AGE: 67 SEX: M ATTEND: Rajesh Kilgore MD ADM AUTHOR: Singh Chapin MD ATTE NTION *EDITS and/or ADDENDA must be made in Patient Keeper for this note. * * Edits and ammendments created in [facility] are not visible * * in Patient Keeper or the legal medical record (HPF). * Discharge Medication Reconciliation Discharge Meds Rec Completed. No Reconciled Orders. at 1236 ATTE NTION *EDITS and/or ADDENDA must be made in Patient Keeper for this note. * * Edits and ammendments created in [facility] are not visible * * in Patient Keeper or the legal medical record ([facility]). * RPT #: [id number] END OF REPORT [facility] 2023-05-08 12:34:00 [facility] ([facility]) Med Order Sheet REPORT #: [id number] REPORT STATUS: Signed DATE: 05/08/23 TIME: 1234 PATIENT: LUIS GUZMÁN UNIT #: [id number] ROOM #: P.0420 BED: A : 55 AGE: 67 SEX: M ATTEND: Rajesh Kilgore MD [facility] AUTHOR: Singh Chapin MD ATTE NTION *EDITS and/or ADDENDA must be made in Patient Keeper for this note. * * Edits and ammendments created in [facility] are not visible * * in Patient Keeper or the legal medical record ([facility]). * Discharge Medication Reconciliation DISCHARGE MEDICATION LIST aspirin chewable tablet Dose: 81 MG PO DAILY Carvedilol Tab (Coreg Tab) Dose: 25 MG PO BID MEALS, Disp: 60 tablet, Refills: 1 Clopidogrel Tab (Plavix Tab) Dose: 75 MG PO DAILY, Disp: 90 tablet, Refills: 0 Finasteride Tab (Proscar Tab) Dose: 5 MG PO BEDTIME Insulin (Lispro) Inj (HumaLOG Inj) Dose: 3 UNITS SubQ C MEALS metFORMIN Tab (Glucophage Tab) Dose: 1000 MG PO BID Spironolactone Tab (Aldactone Tab) Dose: 25 MG PO DAILY, Disp: 90 tablet, Refills: 0 - Take for SBP >140 Tamsulosin Cap (Flomax Cap) Dose: 0.4 MG PO DAILY Tresiba FlexTouch U-100 100 unit/mL (3 mL) subcutaneous insulin pen (insulin degludec) Dose: 36 UNITS SubQ DAILY Ferrous Sulfate Tab (Feosol Tab) Dose: 325MG PO DAILY, Disp: 60 tablet, Refills: 1 Losartan Tab (Cozaar Tab) Dose: 25MG PO DAILY, Disp: 60 tablet, Refills: 1 Hosp: Amiodarone Tab (Cordarone Tab) Dose: 400 MG PO Q12H, Disp: 60 tablet, Refills: 1 Hosp: Atorvastatin Tab (Lipitor Tab) Dose: 80 MG PO BEDTIME, Disp: 90 tablet, Refills: 0 STOPPED HOME MEDICATIONS Dc'd: Atorvastatin Tab (Lipitor Tab) 40 MG PO DAILYDc'd: Avalide 150 mg-12.5 mg tablet (irbesartan-hydrochlorothiazide) Oral (AVALIDE 300/12.5 MG DAILY)Dc'd: NIFEdipine XL Tab (Procardia XL Tab) 30 MG PO DAILY STOPPED HOSPITAL MEDICATIONS Dc'd: Atorvastatin Tab (Lipitor Tab) 80MG PO BEDTIMEDc'd: Acetaminophen Tab (Tylenol Tab) 650MG PO Q4H PRN temp > 38.5 cDc'd: Acetaminophen Supp (Tylenol Supp) 650MG Rectal Q4H PRN temp > 38.5c if npo/intubatedDc'd: Amiodarone Tab (Cordarone Tab) 400MG PO [id number]'d: Bisacodyl Supp (Dulcolax Supp) 10MG Rectal ASDIR X 1 doses PRN no bm pod3 2100Dc'd: Cyanocobalamin Tab (Vitamin B-12 Tab) 500MCG PO DAILYDc'd: Dextrose 50% 50 ml Syringe (D50W 50 ml Syringe) 25ML IV ASDIR PRN hypoglycemiaDc'd: Dextrose 50% 50 ml Syringe (D50W 50 ml Syringe) 25ML IV ASDIR PRN hypoglycemiaDc'd: Docusate Sodium Cap (Colace Cap) 200MG PO DAILYDc'd: Enoxaparin 40 mg/0.4 ml Inj (Lovenox 40 mg/0.4 ml Inj) 40MG SubQ Q24HDc'd: Glucagon Inj (Glucagon Inj) 1MG IM ASDIR PRN hypoglycemia if no iv/enteralDc'd: Glucagon Inj (Glucagon Inj) 1MG IM ASDIR PRN hypoglycemia if no iv/enteralDc'd: HYDROcodone/APAP 10/325 Tab (Cataumet 10/325 Tab) 1TAB PO Q4H PRN pain scale 7-10Dc'd: Lactulose Oral Liquid (Enulose Oral Liquid) 30ML PO ASDIR X 1 doses PRN no bm pod2 2100Dc'd: Mupirocin Ointment 2% (Bactroban Ointment 2%) 1APPLIC Nasal BIDDc'd: Nitroglycerin SL Tab (Nitrostat SL Tab) 0.4MG SL Q5M PRN chest painDc'd: Ondansetron Inj (Zofran Inj) 4MG IV Q6H PRN nausea and vomitingDc'd: Ondansetron ODT Tab (Zofran ODT Tab) 4MG PO Q6H PRN nausea and vomitingDc'd: Polyethylene Glycol Powder (Miralax Powder) 1PKT PO DAILYDc'd: Senna Tab (Senokot Tab) 8.6 mg 2TAB PO ASDIR X 1 doses PRN no bm by pod1 0900Dc'd: Sodium Chloride 0.9% Inj (NS Flush Inj) 10ML IV ASDIR at 1234 ATTE NTION *EDITS and/or ADDENDA must be made in Patient Keeper for this note. * * Edits and ammendments created in [facility] are not visible * * in Patient Keeper or the legal medical record ([facility]). * RPT #: [id number] END OF REPORT [facility] 2023-05-08 12:31:00 [facility] ([facility]) Hospitalist D/C Summary REPORT #: [id number] REPORT STATUS: Signed DATE: 05/08/23 TIME: 1231 PATIENT: LUIS GUZMÁN UNIT #: [id number] ROOM #: P.0420 BED: A : 55 AGE: 67 SEX: M ATTEND: Rajesh Kilgore MD ADM AUTHOR: Singh Chapin MD ATTE NTION *EDITS and/or ADDENDA must be made in Patient Keeper for this note. * * Edits and ammendments created in [facility] are not visible * * in Patient Keeper or the legal medical record ([facility]). * -- PROBLEMS/PROCEDURES -- ADMISSION DATE: 04/28/23 ADMITTING DIAGNOSES: - Atrial fibrillation - Coronary artery disease - Hypertension - Murmur - S/P CABG x 2 DISCHARGE DATE: 05/08/23 DISCHARGE DIAGNOSES: - Atrial fibrillation - Coronary artery disease - Hypertension - Murmur - S/P CABG x 2 -- HOSPITAL COURSE -- HOSPITAL COURSE: This 67-year-old gentleman has a past medical history significant for insulin-dependent diabetes with neuropathy, CVA, hypertension, hyperlipidemia and AV fistula repair in the neck. The patient had had complaints of progressive fatigue and tiredness and was recently admitted to an outside hospital with a viral illness/pneumonia. Troponin was found to be elevated and echocardiogram showed dilated cardiomyopathy and wall motion abnormalities consistent with stress cardiomyopathy or disease. The patient was admitted for selective coronary angiogram by Dr. Katya Cruz on 04/28/2023 to [facility]. It showed critical distal left main disease involving the origin of the left anterior descending, 99%, distal left main 90%, ostium in origin of the left circumflex 90% and a big ramus intermedius with 99% stenosis, first obtuse marginal is small with 80% focal disease, left ventricular ejection fraction 50-55% with anteroapical hypokinesis and end-diastolic pressure of 25. With these critical findings, the patient was transferred to the [facility] for consideration of urgent CABG by Dr. Wilfrido Gray. Clinical course: 04/29: No acute events overnight. No chest pain or shortness of breath. Therapeutic PTT on heparin. Plans for CABG with Dr. Wilfrido Gray week of 05/02. CT shows: Bandlike scarring versus subsegmental atelectasis at the bilateral lower lobes. Coronary artery calcifications are noted. No cardiomegaly. -Carotid Dopplers negative for any hemodynamically significant lesion. Vein mapping done. 04/30: on heparin infusion, PTT therapeutic. last dose of clopidogrel 04/25; Intermittent chest pain. Blood sugars not well-controlled, I have optimized the regimen. for CABG 05/[address] Wilfrido Gray. 05/01: 2D echo shows Left ventricle: The cavity size is normal. Wall thickness is mildly increased. Systolic function is normal. The estimated ejection fraction is 50-54%. Wall motion is normal; there are no regional wall motion abnormalities. Doppler parameters are consistent with restrictive physiology, indicative of decreased left ventricular diastolic compliance and/or increased left atrial pressure. Left atrium: The atrium is mildly dilated. -Intermittent chest pain and shortness of breath In good spirits otherwise. Looking forward to CABG 05/03/[address] Wilfrido Gray. 05/02: No acute events overnight. Some chest discomfort and shortness of breath. Blood sugars could be better. insulin dose adjusted. On heparin infusion, PTT is therapeutic. For CABG 05/[address] Wilfrido Gray. 05/03: the patient underwent Urgent CABG X 2 using cardiopulmonary bypass Left internal mammary artery bypass to the left anterior descending and first diagonal coronary arteries (sequential graft) Reversed saphenous vein graft to the ramus intermedius coronary artery by Dr Wilfrido Gray 05/03/23. Normal biv function pre and intra-op and easy intubation per anesthesia. Intra-op I/O: Crystalloid 2200 ml, CS 225 ml; EBL 750 ml, UO [address] 05/04: extubated POD 0. Medications adjusted, discontinue nifedipine and hydrochlorothiazide. Optimize beta-blockers and ARB. On 2 L of oxygen via nasal cannula. Walked about 200 feet with physical therapy. 05/05: Transitioned out to CV IMU. In isolation. In general much improved. No chest pain or shortness of breath. COVID testing came back positive, asymptomatic from [facility]. 05/06: Developed atrial fibrillation with rapid ventricular response overnight. On IV/oral amiodarone. afebrile, on room air. Blood pressure in goal range. Leukocytosis improving. Hemoglobin 9.6. Creatinine normal. Net neg 0.2L. Chest XR with bibasilar atelectasis L>R. Working with PT but confined to room due to airborne precautions. 05/07: Patient is now in sinus rhythm switch to, and has been p.o. amiodarone. Was not wearing oxygen at the time of evaluation. He is asymptomatic from [facility]. 05/08: Today, patient was evaluated while sitting in bedside chair. Reports that he is feeling well, denies having any nausea or vomiting at this time. Reports that he does not have any shortness of breath. Feels like he is good enough to go home today. Cardiology has cleared the patient for discharge. ASSESSMENT AND PLAN: 1. Critical multivessel coronary artery disease including distal left main, 90-99%, at the origin of the left anterior descending, the origin of the circumflex, first diagonal with 99% first obtuse marginal with 80%, and a left ventricular ejection fraction of 50-55% with anteroapical hypokinesis. The patient apparently had a non-ST segment elevation myocardial infarction a few weeks ago. His disease is not amenable to percutaneous coronary intervention. I will continue to hold clopidogrel and metformin. Start heparin infusion. Continue beta blockers and statins. the patient underwent Urgent CABG X 2 using cardiopulmonary bypass Left internal mammary artery bypass to the left anterior descending and first diagonal coronary arteries (sequential graft) Reversed saphenous vein graft to the ramus intermedius coronary artery by Dr Wilfrido Gray 05/03/23. aspirin 81 mg daily, clopidogrel 75 mg daily, atorvastatin 80 mg daily 2. Diabetes mellitus type 2, not well controlled. Hemoglobin A1c is 8.2. Cont home regimen, will need to be adjusted outpatient 3. Hypertension Spironolactone 25mg daily (For SBP >140), carvedilol 25 mg twice daily, Losartan 25mg daily 4. Benign prostatic hypertrophy. Continue finasteride and tamsulosin. 5. History of cerebrovascular accident, with minimal left-sided residual weakness. 6. Chronic kidney disease stage II. 7. Anemia. 7A. Acute surgical blood loss anemia. 8. Subsegmental atelectasis. 9. Leukocytosis- resolved 10. COVID positivity, asymptomatic 11. Atrial fibrillation, perioperative. Amiodarone 400mg q12hrs and now in sinus Rhythm. Disposition Pt will be discharged home today, follow-up with cardiology outpatient in 1-2 weeks and follow-up with Dr. Gray in 6 weeks. -- DISCHARGE MEDICATIONS -- ALLERGIES: No Known Allergies (UNKNOWN - Allergy) DISCHARGE MEDICATIONS: Please refer to Discharge Medication list for a complete list of discharge medications Amiodarone Tab (Cordarone Tab) 400 MG PO Q12H, Disp: 60 tablet, Refills: 1 aspirin chewable tablet 81 MG PO DAILY Atorvastatin Tab (Lipitor Tab) 80 MG PO BEDTIME, Disp: 90 tablet, Refills: 0 Carvedilol Tab (Coreg Tab) 25 MG PO BID MEALS, Disp: 60 tablet, Refills: 1 Clopidogrel Tab (Plavix Tab) 75 MG PO DAILY, Disp: 90 tablet, Refills: 0 Ferrous Sulfate Tab (Feosol Tab) 325MG PO DAILY, Disp: 60 tablet, Refills: 1 Finasteride Tab (Proscar Tab) 5 MG PO BEDTIME Insulin (Lispro) Inj (HumaLOG Inj) 3 UNITS SubQ C MEALS Losartan Tab (Cozaar Tab) 25MG PO DAILY, Disp: 60 tablet, Refills: 1 metFORMIN Tab (Glucophage Tab) 1000 MG PO BID Spironolactone Tab (Aldactone Tab) 25 MG PO DAILY (Take for SBP >140), Disp: 90 tablet, Refills: 0 Tamsulosin Cap (Flomax Cap) 0.4 MG PO DAILY Tresiba FlexTouch U-100 100 unit/mL (3 mL) subcutaneous insulin pen (insulin degludec) 36 UNITS SubQ DAILY -- DISCHARGE INSTRUCTIONS -- ADMISSION ORDERS: Discharge Follow Up Details: Order number: [id number] Category: ADT - Admission Orders Order status: Transmitted Details: Consulting provider 1: . Ordered by: Singh Chapin MD May 08, 2023 12:37pm Entered by: Singh Chapin MD Service date: May 08, 2023 12:35pm PK DISCHARGE ORDERS: DC - ALL eCQMS Details: Order number: [id number] Category: PKDC - PK DISCHARGE ORDERS Order status: Transmitted Details: Does patient have any of the following conditions at discharge? HF EJ Fraction: gt;40% Beta-Maco at Discharge: Yes Aldosterone Antagonist at Discharge: Yes Weight Monitoring: Not Required Fluid Restriction Limit (mls/day): N/A Ordered by: Singh Chapin MD May 08, 2023 12:37pm Entered by: Singh Chapin MD Service date: May 08, 2023 12:35pm Details: Order number: [id number] Category: PKDC - PK DISCHARGE ORDERS Order status: Transmitted Details: Discharge order with parameter: Yes Notify attending when discharge parameter met: No Discharge to: Home/Self Care Diet: Diabetic Cardiac Low Sodium Activity: As Tolerated PCP follow up timeframe: In 1-2 weeks Attending Physician: BEAR:Katya Cruz MD Cardiology Attending physician follow up timeframe: In 1-2 weeks Additional Discharge Routines: PCP Follow-Up Ordered by: Singh Chapin MD May 08, 2023 12:37pm Entered by: Singh Chapin MD Service date: May 08, 2023 12:35pm Discharge Nick w/instruction ADDTIONAL DISCHARGE INSTRUCTIONS: Emergency Instructions: The patient was instructed to present to the nearest Emergency Department or call 911 should their symptoms return or worsen.; -- OBJECTIVE -- VITALS (05/07 11:43 - 05/08 11:43): Temperature F: 97.9 (97.9 - 98.7) Temperature source: Oral Pulse Rate 67 (61 - 75) Respiratory rate: 18 (14 - 27) Blood pressure: 155/74 (135/63 - 173/82) Blood pressure source: Monitor I/Os (05/07 07:00 - 05/08 07:00): Net -410 Intake 240 Output 650 -EXAM- OTHER: GENERAL: Elderly male, NAD. HEENT: Head is atraumatic. Pupils are reactive to light and accommodation. Extraocular muscles intact. NECK: Supple. No thyromegaly. No JVD. CARDIOVASCULAR: Regular rate and rhythm. CHEST: sternotomy. 2/2 CTs removed. LUNGS: Clear to auscultation. ABDOMEN: Soft, nontender. EXTREMITIES: No edema, cyanosis or clubbing. Pedal pulses palpable. NEUROLOGIC: No focal deficit. -- DATA -- LABS GLU BED (05/08/23 07:35) GLUBED 251 H CBC W/AUTO DIFF (05/08/23 04:10) WHITE BLOOD CELL 10.2 RED BLOOD CELL 3.46 L HEMOGLOBIN 9.4L L HEMATOCRIT 27.5L L MEAN CELL VOLUME 79.5 L MEAN CELL HGB 27.2 MEAN CELL HGB CONCENTRATION 34.2 RED CELL DISTRIBUTION WIDTH 13.2 PLATELET COUNT 234 MEAN PLATELET VOLUME 9.8 NEUTROPHIL % 69.9 LYMPHOCYTE % 14.6 L MONOCYTE % 11.6 H EOSINOPHIL % 2.9 BASOPHIL % 0.4 NEUTROPHIL # 7.14 LYMPHOCYTE # 1.49 MONOCYTE # 1.18 H EOSINOPHIL # 0.30 BASOPHIL # 0.04 COMPREHENSIVE METABOLIC PANEL (05/08/23 04:10) SODIUM 138 POTASSIUM 3.6 CHLORIDE 104 CARBON DIOXIDE 27 GLUCOSE 208 H BLOOD UREA NITROGEN 9 GLOMERULAR FILTRATION RATE >=60 max estimate CREATININE 0.60 L TOTAL PROTEIN 5.1 L ALBUMIN 3.1 L CALCIUM 8.1 L BILIRUBIN TOTAL 0.9 SGOT/AST 12 SGPT/ALT 13 ALKALINE PHOSPHATASE 60.0 GLU BED (05/07/23 20:39) GLUBED 274 H GLU BED (05/07/23 16:41) GLUBED 149 H -- ATTESTATION -- ADDITIONAL DETAIL: I have spent greater than 45 minutes with the patient and reviewing information for patient care. > 50% time spent on counseling/coordination of care Signed in PatientKeeper by Singh Chapin MD on 05/08/23 at 12:41 at 1241 ATTE NTION *EDITS and/or ADDENDA must be made in Patient Keeper for this note. * * Edits and ammendments created in [employer] are not visible * * in Patient Keeper or the legal medical record (HPF). * RPT #: [id number] END OF REPORT [facility] 2023-05-08 08:04:00 [facility] ([facility]) Cardiology Progress Notes REPORT #: [id number] REPORT STATUS: Signed DATE: 05/08/23 TIME: 08 PATIENT: LUIS GUZMÁN UNIT #: [id number] ROOM #: [id number] BED: A : 55 AGE: 67 SEX: M ATTEND: Rajesh Kilgore MD ADM AUTHOR: Prachi Saenz NP ATTE NTION *EDITS and/or ADDENDA must be made in Patient Keeper for this note. * * Edits and ammendments created in [employer] are not visible * * in Patient Keeper or the legal medical record (HPF). * -- CO-SIGNATURE -- COMMENTS: I have personally seen and examined the patient independently, and reviewed the patient's history, exam, and all cardiac and laboratory data. I agree with the history, physical, and the assessment and plan as outlined by Prachi Gurrola NP. Mr. Guzmán is a 67-year-old male who is s/p CABG with WERNER to LAD and SVG to RI. He is doing well and recovering. He denies any chest pain or shortness of breath and is close to going home. We will continue with guideline directed medical therapy for secondary prevention of coronary artery disease with aspirin, Plavix, high intensity statin and beta-maco. Continue with PT/OT. Signed in PatientKeeper by VINNY DEJESUS MD on 05/14/23 at 21:01 -- ASSESSMENT AND PLAN -- GENERAL ASSESSMENT: The patient is a 67-year-old gentleman who is referred by Dr. Katya Cruz and who was having worsening symptoms of fatigue and possibly chest discomfort, underwent a selective coronary angiogram on 04/28/2023 at [facility] demonstrating distal left main disease (90%), LAD (99%), ostial LCx (90%), RI (99%), OM1 (small, 80%), ECHO with LVEF 50-55%, and restrictive physiology with diastolic dysfunction. He was transferred here for urgent bypass surgery with Dr. Wilfrido Gray. He underwent 2 Vessel CABG w/ WERNER-LAD and SVG-RI on 05/03. He was transferred to the [facility] yesterday afternoon. PROBLEMS: 1: Coronary artery disease A/P: - s/p 2 V CABG (WERNER-LAD, SVG-RI). POD #3 - On aspirin 81mg and clopidogrel 75mg daily, atorvastatin 80mg daily, and carvedilol 25mg BID. - Dr. Gray gave all discharged instructions for care of his median sternotomy. - PT/OT/IS 2: Hypertension A/P: - Continue carvedilol 25mg BID. Systolic BP in the 150's. Add back in losartan 25mg daily. 3: Atrial fibrillation A/P: - In sinus rhythm. - On PO amiodarone -- SUBJECTIVE -- CHIEF COMPLAINT: Multi-vessel coronary artery disease PATIENT NARRATIVE: Feeling good. Wants to go home today. -REVIEW OF SYSTEMS- COMMENT: General: Negative for fever, malaise, + fatigue. Eyes: Negative for blurry vision. No diplopia. Respiratory :Negative for dyspnea or wheeze. No cough. Cardiovascular: Negative for chest pain or palpitations. No extremity swelling. Gastrointestinal Negative for abdominal pain or nausea. No emesis. No diarrhea. Genitourinary: Negative for dysuria, frequency, or urgency. No gross hematuria. Musculoskeletal: Negative for joint stiffness, pain, or arthralgias. Skin: Negative for rashes. No pruritus. Neurological: Negative for headache. No vertigo. Denies paresthesias. Psychiatric: Negative for specific complaints. -- OBJECTIVE -- VITALS (05/07 08:04 - 05/08 08:04): Temperature F: 98.7 (98.0 - 98.7) Temperature source: Oral Pulse Rate 65 (61 - 75) Respiratory rate: 15 (14 - 35) Blood pressure: 153/70 (103/51 - 173/82) Blood pressure source: Monitor I/Os (05/07 07:00 - 05/08 07:00): Net -410 Intake 240 Output 650 -EXAM- OTHER: Constitutional: Well developed, well nourished patient, in no acute distress. Derm/Integumentary: Warm and dry with no rashes, sores, or lesions. Mouth: Mucosa moist and pink with no lesions. Neck: supple with no masses, no thryomegaly, No JVD. Respiratory: Diminished at the bases Chest: Median sternotomy intact. Heart: S1S2+, Regular Rate and Rhythm, No murmurs. Gastrointestinal: + Bowel Sounds all quadrants. Soft, nontender with no masses or organomegaly. Musculoskeletal: Equal strength in all extremities. No weakness. Neurology: Alert and oriented X 3. Mild left sided weakness from old stroke. Extremities: + peripheral pulses. No lower extremity edema. -- DATA -- MEDICATIONS LACTULOSE 30 ML PO ASDIR PRN ACETAMINOPHEN 650 MG RECTAL Q4H PRN clopidogreL 75 MG PO DAILY CYANOCOBALAMIN 500 MCG PO DAILY FINASTERIDE 5 MG PO BEDTIME carvediloL 25 MG PO BID MEALS (Held) INSULIN GLARGINE 25 UNITS SUBQ 0800 GLUCAGON 1 MG IM ASDIR PRN ATORVASTATIN CALCIUM 80 MG PO BEDTIME HYDROcodone BITARTRATE/APAP 1 TAB PO Q4H PRN FERROUS SULFATE 325 MG PO DAILY SENNOSIDES 2 TAB PO ASDIR PRN ONDANSETRON 4 MG PO Q6H PRN DEXTROSE 50%-WATER 25 ML IV ASDIR PRN MUPIROCIN 1 APPLIC NASAL BID AMIODARONE HCL 400 MG PO Q12HR ASPIRIN 81 MG PO DAILY LOSARTAN POTASSIUM 25 MG PO DAILY DOCUSATE SODIUM 200 MG PO DAILY (Held) INSULIN LISPRO 5 UNITS SUBQ C MEALS SODIUM CHLORIDE 10 mL 10 ML IV ASDIR ONDANSETRON HCL/PF 4 MG IV Q6H PRN GLUCAGON 1 MG IM ASDIR PRN DEXTROSE 50%-WATER 25 ML IV ASDIR PRN ENOXAPARIN SODIUM 40 MG SUBQ Q24H bisacodyL 10 MG RECTAL ASDIR PRN ACETAMINOPHEN 650 MG PO Q4H PRN polyethylene glycoL 3350 1 PKT PO DAILY NITROGLYCERIN 0.4 MG SL Q5M PRN TAMSULOSIN 0.4 MG PO BEDTIME INSULIN LISPRO HIGH DOSE SS SUBQ AC HS LABS GLU BED (05/08/23 07:35) GLUBED 251 H CBC W/AUTO DIFF (05/08/23 04:10) WHITE BLOOD CELL 10.2 RED BLOOD CELL 3.46 L HEMOGLOBIN 9.4L L HEMATOCRIT 27.5L L MEAN CELL VOLUME 79.5 L MEAN CELL HGB 27.2 MEAN CELL HGB CONCENTRATION 34.2 RED CELL DISTRIBUTION WIDTH 13.2 PLATELET COUNT 234 MEAN PLATELET VOLUME 9.8 NEUTROPHIL % 69.9 LYMPHOCYTE % 14.6 L MONOCYTE % 11.6 H EOSINOPHIL % 2.9 BASOPHIL % 0.4 NEUTROPHIL # 7.14 LYMPHOCYTE # 1.49 MONOCYTE # 1.18 H EOSINOPHIL # 0.30 BASOPHIL # 0.04 COMPREHENSIVE METABOLIC PANEL (05/08/23 04:10) SODIUM 138 POTASSIUM 3.6 CHLORIDE 104 CARBON DIOXIDE 27 GLUCOSE 208 H BLOOD UREA NITROGEN 9 GLOMERULAR FILTRATION RATE >=60 max estimate CREATININE 0.60 L TOTAL PROTEIN 5.1 L ALBUMIN 3.1 L CALCIUM 8.1 L BILIRUBIN TOTAL 0.9 SGOT/AST 12 SGPT/ALT 13 ALKALINE PHOSPHATASE 60.0 GLU BED (05/07/23 20:39) GLUBED 274 H GLU BED (05/07/23 16:41) GLUBED 149 H GLU BED (05/07/23 11:40) GLUBED 289 H -- ATTESTATION -- CARE ACTIVITIES / CARE COORDINATION: - I have reviewed the history and repeated the gupta elements - I have seen and examined this patient - I have reviewed the progress in the clinical course since the last examination - I have discussed the patient's condition with other members of the care team Signed in PatientKeeper by Prachi Saenz NP on 05/08/23 at 11:10 Cosigned by VINNY DEJESUS MD on 05/14/23 at 21:01 at 2101 at 2101 ATTE NTION *EDITS and/or ADDENDA must be made in Patient Keeper for this note. * * Edits and ammendments created in [facility] are not visible * * in Patient Keeper or the legal medical record (HPF). * RPT #: [id number] END OF REPORT [facility] 2023-05-07 14:43:00 [facility] ([facility]) Hospitalist Progress Note REPORT #: [id number] REPORT STATUS: Signed DATE: 05/07/23 TIME: 1443 PATIENT: LUIS GUZMÁN UNIT #: [id number] [facility] : [facility] AGE: 67 SEX: M ATTEND: Rajesh Kilgore MD ADM AUTHOR: Singh Chapin MD ATTE NTION *EDITS and/or ADDENDA must be made in Patient Keeper for this note. * * Edits and ammendments created in [employer] are not visible * * in Patient Keeper or the legal medical record (HPF). * -- ASSESSMENT AND PLAN -- GENERAL ASSESSMENT: ASSESSMENT AND PLAN: 1. Critical multivessel coronary artery disease including distal left main, 90-99%, at the origin of the left anterior descending, the origin of the circumflex, first diagonal with 99% first obtuse marginal with 80%, and a left ventricular ejection fraction of 50-55% with anteroapical hypokinesis. The patient apparently had a non-ST segment elevation myocardial infarction a few weeks ago. His disease is not amenable to percutaneous coronary intervention. I will continue to hold clopidogrel and metformin. Start heparin infusion. Continue beta blockers and statins. the patient underwent Urgent CABG X 2 using cardiopulmonary bypass Left internal mammary artery bypass to the left anterior descending and first diagonal coronary arteries (sequential graft) Reversed saphenous vein graft to the ramus intermedius coronary artery by Dr Wilfrido Gray 05/03/23. 2. Diabetes mellitus type 2, not well controlled. Hemoglobin A1c is 8.2. Continue long-acting and short-acting insulins. 3. Hypertension, continue carvedilol and nifedipine. We will hold angiotensin receptor blockers perioperatively. 4. Benign prostatic hypertrophy. Continue finasteride and tamsulosin. 5. History of cerebrovascular accident, with minimal left-sided residual weakness. 6. Chronic kidney disease stage II. 7. Anemia. 7A. Acute surgical blood loss anemia. 8. Subsegmental atelectasis. Incentive spirometry. 9. Leukocytosis, reactive. 10. COVID positivity, asymptomatic 11. Atrial fibrillation, perioperative. On oral amiodarone and now in sinus Rhythm. Disposition Possible discharge tomorrow once cleared by cardiology. ADDITIONAL COMMENTS: s/p CABG x 2, 05/03/23. Progressing well. COVID positivity, asymptomatic. continue post op care. -- SUBJECTIVE -- HPI: This 67-year-old gentleman has a past medical history significant for insulin-dependent diabetes with neuropathy, CVA, hypertension, hyperlipidemia and AV fistula repair in the neck. The patient has had complaints of progressive fatigue and tiredness and was recently admitted to an outside hospital with a viral illness/pneumonia. Troponin was found to be elevated and echocardiogram showed dilated cardiomyopathy and wall motion abnormalities consistent with stress cardiomyopathy or disease. The patient was admitted for selective coronary angiogram by Dr. Katya Cruz on 04/28/2023 to [facility]. It showed critical distal left main disease involving the origin of the left anterior descending, 99%, distal left main 90%, ostium in origin of the left circumflex 90% and a big ramus intermedius with 99% stenosis, first obtuse marginal is small with 80% focal disease, left ventricular ejection fraction 50-55% with anteroapical hypokinesis and end-diastolic pressure of 25. With these critical findings, the patient was transferred to the [facility] for consideration of urgent CABG by Dr. Wilfrido Gray. PATIENT NARRATIVE: 04/29: No acute events overnight. No chest pain or shortness of breath. Therapeutic PTT on heparin. Plans for CABG with Dr. Wilfrido Gray week of 05/02. CT shows: Bandlike scarring versus subsegmental atelectasis at the bilateral lower lobes. Coronary artery calcifications are noted. No cardiomegaly. -Carotid Dopplers negative for any hemodynamically significant lesion. Vein mapping done. 04/30: on heparin infusion, PTT therapeutic. last dose of clopidogrel 04/25; Intermittent chest pain. Blood sugars not well-controlled, I have optimized the regimen. for CABG 05/[address] Wilfrido Gray. 05/01: 2D echo shows Left ventricle: The cavity size is normal. Wall thickness is mildly increased. Systolic function is normal. The estimated ejection fraction is 50-54%. Wall motion is normal; there are no regional wall motion abnormalities. Doppler parameters are consistent with restrictive physiology, indicative of decreased left ventricular diastolic compliance and/or increased left atrial pressure. Left atrium: The atrium is mildly dilated. -Intermittent chest pain and shortness of breath In good spirits otherwise. Looking forward to CABG 05/03/[address] Wilfrido Gray. 05/02: No acute events overnight. Some chest discomfort and shortness of breath. Blood sugars could be better. insulin dose adjusted. On heparin infusion, PTT is therapeutic. For CABG 05/[address] Wilfrido Gray. 05/03: the patient underwent Urgent CABG X 2 using cardiopulmonary bypass Left internal mammary artery bypass to the left anterior descending and first diagonal coronary arteries (sequential graft) Reversed saphenous vein graft to the ramus intermedius coronary artery by Dr Wilfrido Gray 05/03/23. Normal biv function pre and intra-op and easy intubation per anesthesia. Intra-op I/O: Crystalloid 2200 ml, CS 225 ml; EBL 750 ml, UO [address] 05/04: extubated POD 0. Medications adjusted, discontinue nifedipine and hydrochlorothiazide. Optimize beta-blockers and ARB. On 2 L of oxygen via nasal cannula. Walked about 200 feet with physical therapy. 05/05: Transitioned out to [facility]. In isolation. In general much improved. No chest pain or shortness of breath. COVID testing came back positive, asymptomatic from COVID. 05/06: Developed atrial fibrillation with rapid ventricular response overnight. On IV/oral amiodarone. afebrile, on room air. Blood pressure in goal range. Leukocytosis improving. Hemoglobin 9.6. Creatinine normal. Net neg 0.2L. Chest XR with bibasilar atelectasis L>R. Working with PT but confined to room due to airborne precautions. 05/07: Patient is now in sinus rhythm switch to, and has been p.o. amiodarone. Was not wearing oxygen at the time of evaluation. He is asymptomatic from COVID. -REVIEW OF SYSTEMS- COMMENT: 10 point review of system was negative except as mentioned in the HPI. -- OBJECTIVE -- VITALS (05/06 14:43 - 05/07 14:43): Temperature F: 99.0 (96.5 - 99.4) Temperature C: 36.9 Temperature source: Oral Pulse Rate 64 (64 - 73) Respiratory rate: 35 (16 - 35) Blood pressure: 103/51 (103/51 - 173/83) Blood pressure source: Monitor I/Os (05/06 07:00 - 05/07 07:00): Net -80 Intake 720 Output 800 -EXAM- OTHER: GENERAL: Elderly male, NAD. HEENT: Head is atraumatic. Pupils are reactive to light and accommodation. Extraocular muscles intact. NECK: Supple. No thyromegaly. No JVD. CARDIOVASCULAR: Regular rate and rhythm. CHEST: sternotomy. 2/2 CTs removed. LUNGS: Clear to auscultation. ABDOMEN: Soft, nontender. EXTREMITIES: No edema, cyanosis or clubbing. Pedal pulses palpable. NEUROLOGIC: No focal deficit. -- DATA -- MEDICATIONS LACTULOSE 30 ML PO ASDIR PRN ACETAMINOPHEN 650 MG RECTAL Q4H PRN clopidogreL 75 MG PO DAILY CYANOCOBALAMIN 500 MCG PO DAILY hydrALAZINE HCL 10 MG IV Q6HR PRN FINASTERIDE 5 MG PO BEDTIME carvediloL 25 MG PO BID MEALS (Held) INSULIN GLARGINE 25 UNITS SUBQ 0800 GLUCAGON 1 MG IM ASDIR PRN ATORVASTATIN CALCIUM 80 MG PO BEDTIME HYDROcodone BITARTRATE/APAP 1 TAB PO Q4H PRN FERROUS SULFATE 325 MG PO DAILY SENNOSIDES 2 TAB PO ASDIR PRN ONDANSETRON 4 MG PO Q6H PRN DEXTROSE 50%-WATER 25 ML IV ASDIR PRN MUPIROCIN 1 APPLIC NASAL BID AMIODARONE HCL 400 MG PO Q12HR ASPIRIN 81 MG PO DAILY DOCUSATE SODIUM 200 MG PO DAILY (Held) INSULIN LISPRO 5 UNITS SUBQ C MEALS SODIUM CHLORIDE 10 mL 10 ML IV ASDIR ONDANSETRON HCL/PF 4 MG IV Q6H PRN GLUCAGON 1 MG IM ASDIR PRN DEXTROSE 50%-WATER 25 ML IV ASDIR PRN ENOXAPARIN SODIUM 40 MG SUBQ Q24H bisacodyL 10 MG RECTAL ASDIR PRN ACETAMINOPHEN 650 MG PO Q4H PRN polyethylene glycoL 3350 1 PKT PO DAILY NITROGLYCERIN 0.4 MG SL Q5M PRN TAMSULOSIN 0.4 MG PO BEDTIME INSULIN LISPRO HIGH DOSE SS SUBQ AC HS LABS GLU BED (05/07/23 11:40) GLUBED 289 H GLU BED (05/07/23 07:30) GLUBED 298 H CBC W/AUTO DIFF (05/07/23 03:52) WHITE BLOOD CELL 11.3H H RED BLOOD CELL 3.15 L HEMOGLOBIN 8.8L L HEMATOCRIT 24.8L L MEAN CELL VOLUME 78.7 L MEAN CELL HGB 27.9 MEAN CELL HGB CONCENTRATION 35.5 RED CELL DISTRIBUTION WIDTH 13.2 PLATELET COUNT 181 MEAN PLATELET VOLUME 10.7 NEUTROPHIL % 72.0 LYMPHOCYTE % 13.4 L MONOCYTE % 11.3 H EOSINOPHIL % 2.5 BASOPHIL % 0.2 NEUTROPHIL # 8.11 H LYMPHOCYTE # 1.51 MONOCYTE # 1.27 H EOSINOPHIL # 0.28 BASOPHIL # 0.02 COMPREHENSIVE METABOLIC PANEL (05/07/23 03:52) SODIUM 136 POTASSIUM 4.0 CHLORIDE 102 CARBON DIOXIDE 28 GLUCOSE 217 H BLOOD UREA NITROGEN 13 GLOMERULAR FILTRATION RATE >=60 max estimate CREATININE 0.60 L TOTAL PROTEIN 5.1 L ALBUMIN 3.2 CALCIUM 7.9 L BILIRUBIN TOTAL 0.8 SGOT/AST 18 SGPT/ALT 40 ALKALINE PHOSPHATASE 53.0 GLU BED (05/06/23 20:35) GLUBED 197 H GLU BED (05/06/23 16:26) GLUBED 202 H -- ATTESTATION -- ADDITIONAL DETAIL: I have spent greater than 45 minutes with the patient and reviewing information for patient care. > 50% time spent on counseling/coordination of care Signed in PatientKeeper by Singh Chapin MD on 05/07/23 at 14:50 at 1450 ATTE NTION *EDITS and/or ADDENDA must be made in Patient Keeper for this note. * * Edits and ammendments created in [facility] are not visible * * in Patient Keeper or the legal medical record (HPF). * RPT #: [id number] END OF REPORT [facility] 2023-05-07 08:18:00 [facility] ([facility]) Cardiology Progress Notes REPORT #: [id number] REPORT STATUS: Signed DATE: 05/07/23 TIME: 817 PATIENT: LUIS GUZMÁN UNIT #: [id number] ROOM #: P.[id number] BED: A : 55 AGE: 67 SEX: M ATTEND: Rajesh Kilgore MD ADM AUTHOR: Prachi Saenz NP ATTE NTION *EDITS and/or ADDENDA must be made in Patient Keeper for this note. * * Edits and ammendments created in [employer] are not visible * * in Patient Keeper or the legal medical record (HPF). * -- CO-SIGNATURE -- COMMENTS: I have personally seen and examined the patient independently, and reviewed the patient's history, exam, and all cardiac and laboratory data. I agree with the history, physical, and the assessment and plan as outlined by Prachi Gurrola NP. Mr. Guzmán is a 67-year-old male who is s/p CABG with WERNER to LAD and SVG to RI. He is doing well and recovering. The patient is doing well today and recovering . We will continue with guideline directed medical therapy for secondary prevention of coronary artery disease with aspirin, Plavix, high intensity statin and beta-maco. Continue with PT/OT. Signed in PatientKeeper by VINNY DEJESUS MD on 05/11/23 at 21:36 -- ASSESSMENT AND PLAN -- GENERAL ASSESSMENT: The patient is a 67-year-old gentleman who is referred by Dr. Katya Cruz and who was having worsening symptoms of fatigue and possibly chest discomfort, underwent a selective coronary angiogram on 04/28/2023 at [facility] demonstrating distal left main disease (90%), LAD (99%), ostial LCx (90%), RI (99%), OM1 (small, 80%), ECHO with LVEF 50-55%, and restrictive physiology with diastolic dysfunction. He was transferred here for urgent bypass surgery with Dr. Wilfrido Gray. He underwent 2 Vessel CABG w/ WERNER-LAD and SVG-RI on 05/03. He was transferred to the [facility] yesterday afternoon. PROBLEMS: 1: Coronary artery disease A/P: - s/p 2 V CABG (WERNER-LAD, SVG-RI). POD #3 - On aspirin 81mg and clopidogrel 75mg daily, atorvastatin 80mg daily, and carvedilol 25mg BID. - Furosemide discontinued. - PT/OT/IS 2: Hypertension A/P: - Correction to previous days note. Spironolactone and losartan on hold. Blood pressure has been low at times although when we were in the room his systolic was 170. - Otherwise SBP has been in the 103-120's range. Will continue to monitor and adjust. 3: Atrial fibrillation A/P: - Went into afib overnight. On IV amiodarone and PO was started. - In sinus rhythm now. -- SUBJECTIVE -- CHIEF COMPLAINT: Multi-vessel coronary artery disease -REVIEW OF SYSTEMS- COMMENT: General: Negative for fever, malaise, + fatigue. Eyes: Negative for blurry vision. No diplopia. Respiratory :Negative for dyspnea or wheeze. No cough. Cardiovascular: Negative for chest pain or palpitations. No extremity swelling. Gastrointestinal Negative for abdominal pain or nausea. No emesis. No diarrhea. Genitourinary: Negative for dysuria, frequency, or urgency. No gross hematuria. Musculoskeletal: Negative for joint stiffness, pain, or arthralgias. Skin: Negative for rashes. No pruritus. Neurological: Negative for headache. No vertigo. Denies paresthesias. Psychiatric: Negative for specific complaints. -- OBJECTIVE -- VITALS (05/06 08:18 - 05/07 08:18): Temperature F: 99.0 (96.5 - 99.4) Temperature C: 36.9 (36.8 - 36.9) Temperature source: Oral Pulse Rate 65 (64 - 77) Respiratory rate: 16 (14 - 33) Blood pressure: 132/66 (125/57 - 156/77) Blood pressure source: Monitor I/Os (05/06 07:00 - 05/07 07:00): Net -80 Intake 720 Output 800 -EXAM- OTHER: Constitutional: Well developed, well nourished patient, in no acute distress. Derm/Integumentary: Warm and dry with no rashes, sores, or lesions. Mouth: Mucosa moist and pink with no lesions. Neck: supple with no masses, no thryomegaly, No JVD. Respiratory: Diminished at the bases Chest: Median sternotomy intact. Heart: S1S2+, Regular Rate and Rhythm, No murmurs. Gastrointestinal: + Bowel Sounds all quadrants. Soft, nontender with no masses or organomegaly. Musculoskeletal: Equal strength in all extremities. No weakness. Neurology: Alert and oriented X 3. Mild left sided weakness from old stroke. Extremities: + peripheral pulses. No lower extremity edema. -- DATA -- MEDICATIONS LACTULOSE 30 ML PO ASDIR PRN ACETAMINOPHEN 650 MG RECTAL Q4H PRN clopidogreL 75 MG PO DAILY CYANOCOBALAMIN 500 MCG PO DAILY hydrALAZINE HCL 10 MG IV Q6HR PRN FINASTERIDE 5 MG PO BEDTIME (Held) SPIRONOLACTONE 25 MG PO DAILY (Held) LOSARTAN POTASSIUM 50 MG PO DAILY carvediloL 25 MG PO BID MEALS (Held) INSULIN GLARGINE 25 UNITS SUBQ 0800 GLUCAGON 1 MG IM ASDIR PRN ATORVASTATIN CALCIUM 80 MG PO BEDTIME AMIODARONE HCL/D5W 450 MG IV ASDIR HYDROcodone BITARTRATE/APAP 1 TAB PO Q4H PRN FERROUS SULFATE 325 MG PO DAILY SENNOSIDES 2 TAB PO ASDIR PRN ONDANSETRON 4 MG PO Q6H PRN DEXTROSE 50%-WATER 25 ML IV ASDIR PRN MUPIROCIN 1 APPLIC NASAL BID ASPIRIN 81 MG PO DAILY DOCUSATE SODIUM 200 MG PO DAILY (Held) INSULIN LISPRO 5 UNITS SUBQ C MEALS SODIUM CHLORIDE 10 mL 10 ML IV ASDIR ONDANSETRON HCL/PF 4 MG IV Q6H PRN GLUCAGON 1 MG IM ASDIR PRN DEXTROSE 50%-WATER 25 ML IV ASDIR PRN ENOXAPARIN SODIUM 40 MG SUBQ Q24H AMIODARONE HCL 400 MG PO Q12HR bisacodyL 10 MG RECTAL ASDIR PRN ACETAMINOPHEN 650 MG PO Q4H PRN FUROSEMIDE 20 MG IV BID@0500,1700 polyethylene glycoL 3350 1 PKT PO DAILY NITROGLYCERIN 0.4 MG SL Q5M PRN TAMSULOSIN 0.4 MG PO BEDTIME INSULIN LISPRO HIGH DOSE SS SUBQ AC HS LABS GLU BED (05/07/23 07:30) GLUBED 298 H CBC W/AUTO DIFF (05/07/23 03:52) WHITE BLOOD CELL 11.3H H RED BLOOD CELL 3.15 L HEMOGLOBIN 8.8L L HEMATOCRIT 24.8L L MEAN CELL VOLUME 78.7 L MEAN CELL HGB 27.9 MEAN CELL HGB CONCENTRATION 35.5 RED CELL DISTRIBUTION WIDTH 13.2 PLATELET COUNT 181 MEAN PLATELET VOLUME 10.7 NEUTROPHIL % 72.0 LYMPHOCYTE % 13.4 L MONOCYTE % 11.3 H EOSINOPHIL % 2.5 BASOPHIL % 0.2 NEUTROPHIL # 8.11 H LYMPHOCYTE # 1.51 MONOCYTE # 1.27 H EOSINOPHIL # 0.28 BASOPHIL # 0.02 COMPREHENSIVE METABOLIC PANEL (05/07/23 03:52) SODIUM 136 POTASSIUM 4.0 CHLORIDE 102 CARBON DIOXIDE 28 GLUCOSE 217 H BLOOD UREA NITROGEN 13 GLOMERULAR FILTRATION RATE >=60 max estimate CREATININE 0.60 L TOTAL PROTEIN 5.1 L ALBUMIN 3.2 CALCIUM 7.9 L BILIRUBIN TOTAL 0.8 SGOT/AST 18 SGPT/ALT 40 ALKALINE PHOSPHATASE 53.0 GLU BED (05/06/23 20:35) GLUBED 197 H GLU BED (05/06/23 16:26) GLUBED 202 H COMPREHENSIVE METABOLIC PANEL (05/06/23 10:15) SODIUM 136 POTASSIUM 4.2 CHLORIDE 101 CARBON DIOXIDE 28 GLUCOSE 335 H BLOOD UREA NITROGEN 20 GLOMERULAR FILTRATION RATE >=60 max estimate CREATININE 0.70 TOTAL PROTEIN 6.0 ALBUMIN 3.9 CALCIUM 8.6 L BILIRUBIN TOTAL 0.8 SGOT/AST 23 SGPT/ALT 26 ALKALINE PHOSPHATASE 61.0 CBC W/AUTO DIFF (05/06/23 10:15) WHITE BLOOD CELL 13.4H H RED BLOOD CELL 3.54 L HEMOGLOBIN 9.6L L HEMATOCRIT 28.8L L MEAN CELL VOLUME 81.4 MEAN CELL HGB 27.1 MEAN CELL HGB CONCENTRATION 33.3 RED CELL DISTRIBUTION WIDTH 13.2 PLATELET COUNT 194 MEAN PLATELET VOLUME 10.3 NEUTROPHIL % 80.2 H LYMPHOCYTE % 7.5 L MONOCYTE % 10.0 H EOSINOPHIL % 1.3 BASOPHIL % 0.2 NEUTROPHIL # 10.74 H LYMPHOCYTE # 1.00 MONOCYTE # 1.34 H EOSINOPHIL # 0.17 BASOPHIL # 0.03 -- ATTESTATION -- CARE ACTIVITIES / CARE COORDINATION: - I have reviewed the history and repeated the gupta elements - I have seen and examined this patient - I have reviewed the progress in the clinical course since the last examination - I have discussed the patient's condition with other members of the care team Signed in PatientKeeper by Prachi Saenz NP on 05/07/23 at 12:20 Cosigned by VINNY DEJESUS MD on 05/11/23 at 21:36 at 2136 at 2136 ATTE NTION *EDITS and/or ADDENDA must be made in Patient Keeper for this note. * * Edits and ammendments created in [facility] are not visible * * in Patient Keeper or the legal medical record (HPF). * RPT #: [id number] END OF REPORT [facility] 2023-05-06 14:17:00 [facility] ([facility]) Cardiothoracic Surg. Prog Note REPORT #: [id number] REPORT STATUS: Signed DATE: 05/06/23 TIME: 1417 PATIENT: LUIS GUZMÁN UNIT #: [id number] ROOM #: [facility] BED: A : 55 AGE: 67 SEX: M ATTEND: Rajesh Kilgore MD ADM AUTHOR: Reyna Ortega ATTE NTION *EDITS and/or ADDENDA must be made in Patient Keeper for this note. * * Edits and ammendments created in [employer] are not visible * * in Patient Keeper or the legal medical record (HPF). * -- ASSESSMENT AND PLAN -- HOSPITAL COURSE TO DATE: : [facility] @ [facility] by Dr. Cruz + severe multi-vessel CAD. Transferred to [facility]. 05/03: CABG x 2 (WERNER-LAD, SVG-RI) by Dr. Gray. + COVID PCR resulted. 05/05: Chest tubes removed. 05/06: Atrial fibrillation. Started on IV and PO amiodarone. +BM. GENERAL ASSESSMENT: Patient is a 67 year-old male with severe multi-vessel coronary artery disease transferred from [facility] for urgent CABG. POD#3 CABG x 2 (WERNER-LAD, SVG-RI) by Dr. Gray. Transferred to [facility]. Went into atrial fibrillation early this morning. Started on IV amiodarone bolus and drip. Otherwise, afebrile, on room air. Blood pressure in goal range. Leukocytosis improving. Hemoglobin 9.6. Creatinine normal. Net neg 0.2L. BM this morning. Chest XR with bibasilar atelectasis L>R. Working with PT but confined to room due to airborne precautions. Chest tubes have all been removed. Incisions CDI. Pain is well-controlled. Plan: - Repeat labs in AM. - Continue amiodarone drip. Start PO amiodarone 400mg PO BID. - Continue DAPT with aspirin and Plavix. - Continue high-intensity statin and beta maco. - Continue diuresis with lasix BID. Monitor I/O. - Hourly IS, OOB in chair. - DVT prophylaxis with lovenox. - Cardiac diet. - Ambulate TID, PT/OT. OOB in chair. PLAN DISCUSSED WITH: Patient seen on AM rounds with Dr. Gray. -- SUBJECTIVE -- PATIENT NARATIVE: No events overnight. Transitioned to [facility]. OOB in chair this morning in sinus rhythm. -- OBJECTIVE -- VITALS (05/05 14:17 - 05/06 14:17): Temperature F: 97.8 (97.3 - 98.3) Temperature C: 36.8 (36.8 - 37.0) Temperature source: Oral Pulse Rate 73 (61 - 76) Respiratory rate: 22 (10 - 26) Blood pressure: 135/57 (95/52 - 153/71) Blood pressure source: Monitor I/Os (05/05 07:00 - 05/06 07:00): Net -235.00 Intake 860.00 Output 1,095 -EXAM- GENERAL: Well developed, well nourished, in no apparent distress. HEAD: Normocephalic, atraumatic. NECK: Supple, trachea midline. No JVD. CHEST: Sternotomy incision CDI. Chest tube sutures CDI with epicardial wires secured to chest. LUNGS: Normal respiratory effort. HEART: Regular rate and rhythm, normal S1, S2, no murmurs, no rubs, no gallops, no clicks. ABDOMEN: Soft, non-tender, no organomegaly, no masses noted. MUSCULOSKELETAL: No deformity, no scoliosis noted of thoracic or lumbar spine, joint ROM grossly normal. EXTREMITIES: No clubbing, no cyanosis, no edema. NEUROLOGICAL: No focal deficits. Normal muscle strength, normal tone. PULSES: Pulses normal in all extremities. SKIN: Intact without significant lesions, or rashes. PSYCHIATRIC: Alert and oriented to time, person, place. Normal mood and affect, intact judgment and insight. INDWELLING DUMONT: No -- DATA -- MEDICATIONS LACTULOSE 30 ML PO ASDIR PRN clopidogreL 75 MG PO DAILY CYANOCOBALAMIN 500 MCG PO DAILY carvediloL 25 MG PO BID MEALS FERROUS SULFATE 325 MG PO DAILY DEXTROSE 50%-WATER 25 ML IV ASDIR PRN GLUCAGON 1 MG IM ASDIR PRN DEXTROSE 50%-WATER 25 ML IV ASDIR PRN AMIODARONE HCL 400 MG PO Q12HR bisacodyL 10 MG RECTAL ASDIR PRN ACETAMINOPHEN 650 MG PO Q4H PRN polyethylene glycoL 3350 1 PKT PO DAILY ACETAMINOPHEN 650 MG RECTAL Q4H PRN hydrALAZINE HCL 10 MG IV Q6HR PRN FINASTERIDE 5 MG PO BEDTIME (Held) SPIRONOLACTONE 25 MG PO DAILY (Held) LOSARTAN POTASSIUM 50 MG PO DAILY (Held) INSULIN GLARGINE 25 UNITS SUBQ 0800 GLUCAGON 1 MG IM ASDIR PRN ATORVASTATIN CALCIUM 80 MG PO BEDTIME AMIODARONE HCL/D5W 450 MG IV ASDIR HYDROcodone BITARTRATE/APAP 1 TAB PO Q4H PRN SENNOSIDES 2 TAB PO ASDIR PRN ONDANSETRON 4 MG PO Q6H PRN MUPIROCIN 1 APPLIC NASAL BID ASPIRIN 81 MG PO DAILY DOCUSATE SODIUM 200 MG PO DAILY (Held) INSULIN LISPRO 5 UNITS SUBQ C MEALS SODIUM CHLORIDE 10 mL 10 ML IV ASDIR ONDANSETRON HCL/PF 4 MG IV Q6H PRN ENOXAPARIN SODIUM 40 MG SUBQ Q24H FUROSEMIDE 20 MG IV BID@0500,1700 NITROGLYCERIN 0.4 MG SL Q5M PRN TAMSULOSIN 0.4 MG PO BEDTIME INSULIN LISPRO HIGH DOSE SS SUBQ AC HS LABS CBC W/AUTO DIFF (05/06/23 10:15) WHITE BLOOD CELL 13.4H H RED BLOOD CELL 3.54 L HEMOGLOBIN 9.6L L HEMATOCRIT 28.8L L MEAN CELL VOLUME 81.4 MEAN CELL HGB 27.1 MEAN CELL HGB CONCENTRATION 33.3 RED CELL DISTRIBUTION WIDTH 13.2 PLATELET COUNT 194 MEAN PLATELET VOLUME 10.3 NEUTROPHIL % 80.2 H LYMPHOCYTE % 7.5 L MONOCYTE % 10.0 H EOSINOPHIL % 1.3 BASOPHIL % 0.2 NEUTROPHIL # 10.74 H LYMPHOCYTE # 1.00 MONOCYTE # 1.34 H EOSINOPHIL # 0.17 BASOPHIL # 0.03 COMPREHENSIVE METABOLIC PANEL (05/06/23 10:15) SODIUM 136 POTASSIUM 4.2 CHLORIDE 101 CARBON DIOXIDE 28 GLUCOSE 335 H BLOOD UREA NITROGEN 20 GLOMERULAR FILTRATION RATE >=60 max estimate CREATININE 0.70 TOTAL PROTEIN 6.0 ALBUMIN 3.9 CALCIUM 8.6 L BILIRUBIN TOTAL 0.8 SGOT/AST 23 SGPT/ALT 26 ALKALINE PHOSPHATASE 61.0 GLU BED (05/05/23 17:23) GLUBED 190 H -- QUALITY -- -MEDICATIONS- - I attest that the foregoing medication list in the medical record is true, accurate, and complete to the best of my knowledge. -VTE PROPHYLAXIS -GENERAL- Yes TYPE OF VTE Lovenox -- ATTESTATION -- CARE ACTIVITIES / CARE COORDINATION: - I have reviewed the history and repeated the gupta elements - I have seen and examined this patient - I have reviewed the progress in the clinical course since the last examination - I have discussed the patient's condition with other members of the care team Signed in PatientKeeper by Reyna Ortega on 05/06/23 at 14:41 Cosigned by WILFRIDO GRAY MD on 05/08/23 at 07:58 at 0758 at 0758 ATTE NTION *EDITS and/or ADDENDA must be made in Patient Keeper for this note. * * Edits and ammendments created in [employer] are not visible * * in Patient Keeper or the legal medical record (HPF). * RPT #: [id number] END OF REPORT [facility] 2023-05-06 11:50:00 [facility] ([facility]) Hospitalist Progress Note REPORT #: [id number] REPORT STATUS: Signed DATE: 05/06/23 TIME: 1150 PATIENT: LUIS GUZMÁN UNIT #: [id number] ROOM #: [facility] BED: A : 55 AGE: 67 SEX: M ATTEND: Rajesh Kilgore MD ADM AUTHOR: Rajesh Kilgore MD ATTE NTION *EDITS and/or ADDENDA must be made in Patient Keeper for this note. * * Edits and ammendments created in [employer] are not visible * * in Patient Keeper or the legal medical record ([facility]). * -- ASSESSMENT AND PLAN -- GENERAL ASSESSMENT: ASSESSMENT AND PLAN: 1. Critical multivessel coronary artery disease including distal left main, 90-99%, at the origin of the left anterior descending, the origin of the circumflex, first diagonal with 99% first obtuse marginal with 80%, and a left ventricular ejection fraction of 50-55% with anteroapical hypokinesis. The patient apparently had a non-ST segment elevation myocardial infarction a few weeks ago. His disease is not amenable to percutaneous coronary intervention. I will continue to hold clopidogrel and metformin. Start heparin infusion. Continue beta blockers and statins. the patient underwent Urgent CABG X 2 using cardiopulmonary bypass Left internal mammary artery bypass to the left anterior descending and first diagonal coronary arteries (sequential graft) Reversed saphenous vein graft to the ramus intermedius coronary artery by Dr Wilfrido Gray 05/03/23. 2. Diabetes mellitus type 2, not well controlled. Hemoglobin A1c is 8.2. Continue long-acting and short-acting insulins. 3. Hypertension, continue carvedilol and nifedipine. We will hold angiotensin receptor blockers perioperatively. 4. Benign prostatic hypertrophy. Continue finasteride and tamsulosin. 5. History of cerebrovascular accident, with minimal left-sided residual weakness. 6. Chronic kidney disease stage II. 7. Anemia. 7A. Acute surgical blood loss anemia. 8. Subsegmental atelectasis. Incentive spirometry. 9. Leukocytosis, reactive. 10. COVID positivity, asymptomatic 11. Atrial fibrillation, perioperative. IV/oral amiodarone. ADDITIONAL COMMENTS: s/p CABG x 2, 05/03/23. Progressing well. COVID positivity, asymptomatic. continue post op care. -- SUBJECTIVE -- HPI: This 67-year-old gentleman has a past medical history significant for insulin-dependent diabetes with neuropathy, CVA, hypertension, hyperlipidemia and AV fistula repair in the neck. The patient has had complaints of progressive fatigue and tiredness and was recently admitted to an outside hospital with a viral illness/pneumonia. Troponin was found to be elevated and echocardiogram showed dilated cardiomyopathy and wall motion abnormalities consistent with stress cardiomyopathy or disease. The patient was admitted for selective coronary angiogram by Dr. Katya Cruz on 04/28/2023 to [facility]. It showed critical distal left main disease involving the origin of the left anterior descending, 99%, distal left main 90%, ostium in origin of the left circumflex 90% and a big ramus intermedius with 99% stenosis, first obtuse marginal is small with 80% focal disease, left ventricular ejection fraction 50-55% with anteroapical hypokinesis and end-diastolic pressure of 25. With these critical findings, the patient was transferred to the [facility] for consideration of urgent CABG by Dr. Wilfrido Gray. PATIENT NARRATIVE: 04/29: No acute events overnight. No chest pain or shortness of breath. Therapeutic PTT on heparin. Plans for CABG with Dr. Wilfrido Gray week of 05/02. CT shows: Bandlike scarring versus subsegmental atelectasis at the bilateral lower lobes. Coronary artery calcifications are noted. No cardiomegaly. -Carotid Dopplers negative for any hemodynamically significant lesion. Vein mapping done. 04/30: on heparin infusion, PTT therapeutic. last dose of clopidogrel 04/25; Intermittent chest pain. Blood sugars not well-controlled, I have optimized the regimen. for CABG 05/[address] Wilfrido Gray. 05/01: 2D echo shows Left ventricle: The cavity size is normal. Wall thickness is mildly increased. Systolic function is normal. The estimated ejection fraction is 50-54%. Wall motion is normal; there are no regional wall motion abnormalities. Doppler parameters are consistent with restrictive physiology, indicative of decreased left ventricular diastolic compliance and/or increased left atrial pressure. Left atrium: The atrium is mildly dilated. -Intermittent chest pain and shortness of breath In good spirits otherwise. Looking forward to CABG 05/03/[address] Wilfrido Gray. 05/02: No acute events overnight. Some chest discomfort and shortness of breath. Blood sugars could be better. insulin dose adjusted. On heparin infusion, PTT is therapeutic. For CABG 05/[address] Wilfrido Gray. 05/03: the patient underwent Urgent CABG X 2 using cardiopulmonary bypass Left internal mammary artery bypass to the left anterior descending and first diagonal coronary arteries (sequential graft) Reversed saphenous vein graft to the ramus intermedius coronary artery by Dr Wilfrido Gray 05/03/23. Normal biv function pre and intra-op and easy intubation per anesthesia. Intra-op I/O: Crystalloid 2200 ml, CS 225 ml; EBL 750 ml, UO [address] 05/04: extubated POD 0. Medications adjusted, discontinue nifedipine and hydrochlorothiazide. Optimize beta-blockers and ARB. On 2 L of oxygen via nasal cannula. Walked about 200 feet with physical therapy. 05/05: Transitioned out to [facility]. In isolation. In general much improved. No chest pain or shortness of breath. COVID testing came back positive, asymptomatic from COVID. 05/06: Developed atrial fibrillation with rapid ventricular response overnight. On IV/oral amiodarone. afebrile, on room air. Blood pressure in goal range. Leukocytosis improving. Hemoglobin 9.6. Creatinine normal. Net neg 0.2L. Chest XR with bibasilar atelectasis L>R. Working with PT but confined to room due to airborne precautions. -REVIEW OF SYSTEMS- GENERAL: as above -- OBJECTIVE -- VITALS (05/05 11:50 - 05/06 11:50): Temperature F: 97.8 (97.3 - 98.3) Temperature C: 36.8 (36.8 - 37.0) Temperature source: Oral Pulse Rate 73 (61 - 76) Respiratory rate: 23 (8 - 26) Blood pressure: 148/71 (95/52 - 153/71) Blood pressure source: Monitor I/Os (05/05 07:00 - 05/06 07:00): Net -235.00 Intake 860.00 Output 1,095 -EXAM- GENERAL: GENERAL: Elderly male, NAD. VITAL SIGNS: Weight is 78.2 kilograms. Body mass index 27. HEENT: Head is atraumatic. Pupils are reactive to light and accommodation. Extraocular muscles intact. NECK: Supple. No thyromegaly. No JVD. CARDIOVASCULAR: Regular rate and rhythm. CHEST: sternotomy. /2 CTs removed. LUNGS: Clear to auscultation. ABDOMEN: Soft, nontender. EXTREMITIES: No edema, cyanosis or clubbing. Pedal pulses palpable. NEUROLOGIC: No focal deficit. -- DATA -- MEDICATIONS LACTULOSE 30 ML PO ASDIR PRN clopidogreL 75 MG PO DAILY CYANOCOBALAMIN 500 MCG PO DAILY carvediloL 25 MG PO BID MEALS FERROUS SULFATE 325 MG PO DAILY DEXTROSE 50%-WATER 25 ML IV ASDIR PRN GLUCAGON 1 MG IM ASDIR PRN DEXTROSE 50%-WATER 25 ML IV ASDIR PRN AMIODARONE HCL 400 MG PO Q12HR bisacodyL 10 MG RECTAL ASDIR PRN ACETAMINOPHEN 650 MG PO Q4H PRN polyethylene glycoL 3350 1 PKT PO DAILY ACETAMINOPHEN 650 MG RECTAL Q4H PRN hydrALAZINE HCL 10 MG IV Q6HR PRN FINASTERIDE 5 MG PO BEDTIME (Held) SPIRONOLACTONE 25 MG PO DAILY (Held) LOSARTAN POTASSIUM 50 MG PO DAILY (Held) INSULIN GLARGINE 25 UNITS SUBQ 0800 GLUCAGON 1 MG IM ASDIR PRN ATORVASTATIN CALCIUM 80 MG PO BEDTIME AMIODARONE HCL/D5W 450 MG IV ASDIR HYDROcodone BITARTRATE/APAP 1 TAB PO Q4H PRN SENNOSIDES 2 TAB PO ASDIR PRN ONDANSETRON 4 MG PO Q6H PRN MUPIROCIN 1 APPLIC NASAL BID ASPIRIN 81 MG PO DAILY DOCUSATE SODIUM 200 MG PO DAILY (Held) INSULIN LISPRO 5 UNITS SUBQ C MEALS SODIUM CHLORIDE 10 mL 10 ML IV ASDIR ONDANSETRON HCL/PF 4 MG IV Q6H PRN ENOXAPARIN SODIUM 40 MG SUBQ Q24H FUROSEMIDE 20 MG IV BID@0500,1700 NITROGLYCERIN 0.4 MG SL Q5M PRN TAMSULOSIN 0.4 MG PO BEDTIME INSULIN LISPRO HIGH DOSE SS SUBQ AC HS LABS CBC W/AUTO DIFF (05/06/23 10:15) WHITE BLOOD CELL 13.4H H RED BLOOD CELL 3.54 L HEMOGLOBIN 9.6L L HEMATOCRIT 28.8L L MEAN CELL VOLUME 81.4 MEAN CELL HGB 27.1 MEAN CELL HGB CONCENTRATION 33.3 RED CELL DISTRIBUTION WIDTH 13.2 PLATELET COUNT 194 MEAN PLATELET VOLUME 10.3 NEUTROPHIL % 80.2 H LYMPHOCYTE % 7.5 L MONOCYTE % 10.0 H EOSINOPHIL % 1.3 BASOPHIL % 0.2 NEUTROPHIL # 10.74 H LYMPHOCYTE # 1.00 MONOCYTE # 1.34 H EOSINOPHIL # 0.17 BASOPHIL # 0.03 COMPREHENSIVE METABOLIC PANEL (05/06/23 10:15) SODIUM 136 POTASSIUM 4.2 CHLORIDE 101 CARBON DIOXIDE 28 GLUCOSE 335 H BLOOD UREA NITROGEN 20 GLOMERULAR FILTRATION RATE >=60 max estimate CREATININE 0.70 TOTAL PROTEIN 6.0 ALBUMIN 3.9 CALCIUM 8.6 L BILIRUBIN TOTAL 0.8 SGOT/AST 23 SGPT/ALT 26 ALKALINE PHOSPHATASE 61.0 GLU BED (05/05/23 17:23) GLUBED 190 H -- QUALITY -- -MEDICATIONS- - I attest that the foregoing medication list in the medical record is true, accurate, and complete to the best of my knowledge. -- ATTESTATION -- CARE ACTIVITIES / CARE COORDINATION: - I have reviewed the history and repeated the gupta elements - I have seen and examined this patient - I have reviewed the progress in the clinical course since the last examination - I have discussed the patient's condition with other members of the care team Signed in PatientKeeper by Rajesh Kilgore MD on 05/06/23 at 15:26 at 1526 ATTE NTION *EDITS and/or ADDENDA must be made in Patient Keeper for this note. * * Edits and ammendments created in [employer] are not visible * * in Patient Keeper or the legal medical record ([facility]). * RPT #: [id number] END OF REPORT [facility] 2023-05-06 09:53:00 [facility] ([facility]) Cardiology Progress Notes REPORT #: [id number] REPORT STATUS: Signed DATE: 05/06/23 TIME: 952 PATIENT: LUIS GUZMÁN UNIT #: [id number] ROOM #: [id number] BED: : 55 AGE: 67 SEX: M ATTEND: Rajesh Kilgore MD ADM AUTHOR: Prachi Saenz NP ATTE NTION *EDITS and/or ADDENDA must be made in Patient Keeper for this note. * * Edits and ammendments created in [employer] are not visible * * in Patient Keeper or the legal medical record ([facility]). * -- CO-SIGNATURE -- COMMENTS: The patient was seen on rounds with Andres Patel MD The patient has no complaints Examination demonstrates normal heart sounds and clear lung mcmanus. Impression and plan The patient is a 67-year-old gentleman with a history of hypertension, hypertension lipidemia, diabetes mellitus who is now status post two-vessel bypass surgery. Went into atrial fibrillation overnight and amiodarone was started. The patient is currently back in sinus rhythm. We will transition to oral amiodarone. Continue dual antiplatelet therapy, statin and on beta-blockade Continue occupational and physical therapy. Ambulate the patient. Signed in PatientKeeper by JUAN M WEI MD on 05/08/23 at 10:00 -- ASSESSMENT AND PLAN -- GENERAL ASSESSMENT: The patient is a 67-year-old gentleman who is referred by Dr. Katya Cruz and who was having worsening symptoms of fatigue and possibly chest discomfort, underwent a selective coronary angiogram on 04/28/2023 at [facility] demonstrating distal left main disease (90%), LAD (99%), ostial LCx (90%), RI (99%), OM1 (small, 80%), ECHO with LVEF 50-55%, and restrictive physiology with diastolic dysfunction. He was transferred here for urgent bypass surgery with Dr. Wilfrido Gray. He underwent 2 Vessel CABG w/ WERNER-LAD and SVG-RI on 05/03. He was transferred to the [facility] yesterday afternoon. PROBLEMS: 1: Coronary artery disease A/P: - s/p 2 V CABG (WERNER-LAD, SVG-RI). POD #3 - On aspirin 81mg and clopidogrel 75mg daily, atorvastatin 80mg daily, and carvedilol 25mg BID. - Continue furosemide 20mg IV BID (mild congestion). Small left effusion on Chest X-ray today. - PT/OT/IS 2: Hypertension A/P: - On carvedilol, losartan, spironolactone (home med). BP controlled. 3: Atrial fibrillation A/P: - Went into afib overnight. On IV amiodarone and PO was started. - In sinus rhythm now. -- SUBJECTIVE -- CHIEF COMPLAINT: Multi-vessel coronary artery disease PATIENT NARRATIVE: Afib yesterday. Back in Sinus rhythm with amiodarone. -REVIEW OF SYSTEMS- COMMENT: General: Negative for fever, malaise, + fatigue. Eyes: Negative for blurry vision. No diplopia. Respiratory :Negative for dyspnea or wheeze. No cough. Cardiovascular: Negative for chest pain or palpitations. No extremity swelling. Gastrointestinal Negative for abdominal pain or nausea. No emesis. No diarrhea. Genitourinary: Negative for dysuria, frequency, or urgency. No gross hematuria. Musculoskeletal: Negative for joint stiffness, pain, or arthralgias. Skin: Negative for rashes. No pruritus. Neurological: Negative for headache. No vertigo. Denies paresthesias. Psychiatric: Negative for specific complaints. -- OBJECTIVE -- VITALS (05/05 10:53 - 05/06 10:53): Temperature F: 97.8 (97.3 - 98.3) Temperature C: 37.0 Temperature source: Oral Pulse Rate 76 (61 - 76) Respiratory rate: 19 (8 - 26) Blood pressure: 137/67 (95/52 - 153/70) Blood pressure source: Monitor I/Os (05/05 07:00 - 05/06 07:00): Net -235.00 Intake 860.00 Output 1,095 -EXAM- OTHER: Constitutional: Well developed, well nourished patient, in no acute distress. Derm/Integumentary: Warm and dry with no rashes, sores, or lesions. Mouth: Mucosa moist and pink with no lesions. Neck: supple with no masses, no thryomegaly, No JVD. Respiratory: Diminished at the bases Chest: Median sternotomy intact. Heart: S1S2+, Regular Rate and Rhythm, No murmurs. Gastrointestinal: + Bowel Sounds all quadrants. Soft, nontender with no masses or organomegaly. Musculoskeletal: Equal strength in all extremities. No weakness. Neurology: Alert and oriented X 3. Mild left sided weakness from old stroke. Extremities: + peripheral pulses. No lower extremity edema. -- DATA -- MEDICATIONS LACTULOSE 30 ML PO ASDIR PRN clopidogreL 75 MG PO DAILY CYANOCOBALAMIN 500 MCG PO DAILY carvediloL 25 MG PO BID MEALS FERROUS SULFATE 325 MG PO DAILY DEXTROSE 50%-WATER 25 ML IV ASDIR PRN GLUCAGON 1 MG IM ASDIR PRN DEXTROSE 50%-WATER 25 ML IV ASDIR PRN AMIODARONE HCL 400 MG PO Q12HR bisacodyL 10 MG RECTAL ASDIR PRN ACETAMINOPHEN 650 MG PO Q4H PRN polyethylene glycoL 3350 1 PKT PO DAILY ACETAMINOPHEN 650 MG RECTAL Q4H PRN hydrALAZINE HCL 10 MG IV Q6HR PRN FINASTERIDE 5 MG PO BEDTIME (Held) SPIRONOLACTONE 25 MG PO DAILY (Held) LOSARTAN POTASSIUM 50 MG PO DAILY (Held) INSULIN GLARGINE 25 UNITS SUBQ 0800 GLUCAGON 1 MG IM ASDIR PRN ATORVASTATIN CALCIUM 80 MG PO BEDTIME AMIODARONE HCL/D5W 450 MG IV ASDIR HYDROcodone BITARTRATE/APAP 1 TAB PO Q4H PRN SENNOSIDES 2 TAB PO ASDIR PRN ONDANSETRON 4 MG PO Q6H PRN MUPIROCIN 1 APPLIC NASAL BID ASPIRIN 81 MG PO DAILY DOCUSATE SODIUM 200 MG PO DAILY (Held) INSULIN LISPRO 5 UNITS SUBQ C MEALS SODIUM CHLORIDE 10 mL 10 ML IV ASDIR ONDANSETRON HCL/PF 4 MG IV Q6H PRN ENOXAPARIN SODIUM 40 MG SUBQ Q24H FUROSEMIDE 20 MG IV BID@0500,1700 NITROGLYCERIN 0.4 MG SL Q5M PRN TAMSULOSIN 0.4 MG PO BEDTIME INSULIN LISPRO HIGH DOSE SS SUBQ AC HS LABS GLU BED (05/05/23 17:23) GLUBED 190 H -- ATTESTATION -- CARE ACTIVITIES / CARE COORDINATION: - I have reviewed the history and repeated the gupta elements - I have seen and examined this patient - I have reviewed the progress in the clinical course since the last examination - I have discussed the patient's condition with other members of the care team Signed in PatientKeeper by Prachi Saenz NP on 05/06/23 at 11:01 Cosigned by JUAN M WEI MD on 05/08/23 at 10:00 at 1000 at 1000 ATTE NTION *EDITS and/or ADDENDA must be made in Patient Keeper for this note. * * Edits and ammendments created in [facility] are not visible * * in Patient Keeper or the legal medical record ([facility]). * RPT #: [id number] END OF REPORT [facility] 2023-05-05 14:09:00 [facility] ([facility]) Hospitalist Progress Note REPORT #: [id number] REPORT STATUS: Signed DATE: 05/05/23 TIME: 140 PATIENT: LUIS GUZMÁN UNIT #: [id number] ROOM #: P.0420 BED: A : 55 AGE: 67 SEX: M ATTEND: Rajesh Kilgore MD [facility] AUTHOR: Rajesh Kilgore MD ATTE NTION *EDITS and/or ADDENDA must be made in Patient Keeper for this note. * * Edits and ammendments created in [facility] are not visible * * in Patient Keeper or the legal medical record ([facility]). * -- ASSESSMENT AND PLAN -- GENERAL ASSESSMENT: ASSESSMENT AND PLAN: 1. Critical multivessel coronary artery disease including distal left main, 90-99%, at the origin of the left anterior descending, the origin of the circumflex, first diagonal with 99% first obtuse marginal with 80%, and a left ventricular ejection fraction of 50-55% with anteroapical hypokinesis. The patient apparently had a non-ST segment elevation myocardial infarction a few weeks ago. His disease is not amenable to percutaneous coronary intervention. I will continue to hold clopidogrel and metformin. Start heparin infusion. Continue beta blockers and statins. the patient underwent Urgent CABG X 2 using cardiopulmonary bypass Left internal mammary artery bypass to the left anterior descending and first diagonal coronary arteries (sequential graft) Reversed saphenous vein graft to the ramus intermedius coronary artery by Dr Wilfrido Gray 05/03/23. 2. Diabetes mellitus type 2, not well controlled. Hemoglobin A1c is 8.2. Continue long-acting and short-acting insulins. 3. Hypertension, continue carvedilol and nifedipine. We will hold angiotensin receptor blockers perioperatively. 4. Benign prostatic hypertrophy. Continue finasteride and tamsulosin. 5. History of cerebrovascular accident, with minimal left-sided residual weakness. 6. Chronic kidney disease stage II. 7. Anemia. 7A. Acute surgical blood loss anemia. 8. Subsegmental atelectasis. Incentive spirometry. 9. Leukocytosis, reactive. 10. COVID positivity, asymptomatic ADDITIONAL COMMENTS: s/p CABG x 2, 05/03/23. continue post op care. -- SUBJECTIVE -- HPI: This 67-year-old gentleman has a past medical history significant for insulin-dependent diabetes with neuropathy, CVA, hypertension, hyperlipidemia and AV fistula repair in the neck. The patient has had complaints of progressive fatigue and tiredness and was recently admitted to an outside hospital with a viral illness/pneumonia. Troponin was found to be elevated and echocardiogram showed dilated cardiomyopathy and wall motion abnormalities consistent with stress cardiomyopathy or disease. The patient was admitted for selective coronary angiogram by Dr. Katya Cruz on 04/28/2023 to [facility]. It showed critical distal left main disease involving the origin of the left anterior descending, 99%, distal left main 90%, ostium in origin of the left circumflex 90% and a big ramus intermedius with 99% stenosis, first obtuse marginal is small with 80% focal disease, left ventricular ejection fraction 50-55% with anteroapical hypokinesis and end-diastolic pressure of 25. With these critical findings, the patient was transferred to the [facility] for consideration of urgent CABG by Dr. Wilfrido Gray. PATIENT NARRATIVE: 04/29: No acute events overnight. No chest pain or shortness of breath. Therapeutic PTT on heparin. Plans for CABG with Dr. Wilfrido Gray week of 05/02. CT shows: Bandlike scarring versus subsegmental atelectasis at the bilateral lower lobes. Coronary artery calcifications are noted. No cardiomegaly. -Carotid Dopplers negative for any hemodynamically significant lesion. Vein mapping done. 04/30: on heparin infusion, PTT therapeutic. last dose of clopidogrel 04/25; Intermittent chest pain. Blood sugars not well-controlled, I have optimized the regimen. for CABG 05/[address] Wilfrido Gray. 05/01: 2D echo shows Left ventricle: The cavity size is normal. Wall thickness is mildly increased. Systolic function is normal. The estimated ejection fraction is 50-54%. Wall motion is normal; there are no regional wall motion abnormalities. Doppler parameters are consistent with restrictive physiology, indicative of decreased left ventricular diastolic compliance and/or increased left atrial pressure. Left atrium: The atrium is mildly dilated. -Intermittent chest pain and shortness of breath In good spirits otherwise. Looking forward to CABG 05/03/[address] Wilfrido Gray. 05/02: No acute events overnight. Some chest discomfort and shortness of breath. Blood sugars could be better. insulin dose adjusted. On heparin infusion, PTT is therapeutic. For CABG 05/[address] Wilfrido Gray. 05/03: the patient underwent Urgent CABG X 2 using cardiopulmonary bypass Left internal mammary artery bypass to the left anterior descending and first diagonal coronary arteries (sequential graft) Reversed saphenous vein graft to the ramus intermedius coronary artery by Dr Wilfrido Gray 05/03/23. Normal biv function pre and intra-op and easy intubation per anesthesia. Intra-op I/O: Crystalloid 2200 ml, CS 225 ml; EBL 750 ml, UO [address] 05/04: extubated POD 0. Medications adjusted, discontinue nifedipine and hydrochlorothiazide. Optimize beta-blockers and ARB. On 2 L of oxygen via nasal cannula. Walked about 200 feet with physical therapy. 05/05: Transitioned out to CV IMU. In isolation. In general much improved. No chest pain or shortness of breath. COVID testing came back positive, asymptomatic from COVID. -REVIEW OF SYSTEMS- GENERAL: as above -- OBJECTIVE -- VITALS (05/04 14:09 - 05/05 14:09): Temperature F: 97.5 (97.0 - 97.6) Temperature source: Oral Pulse Rate 68 (53 - 79) Respiratory rate: 17 (8 - 49) Blood pressure: 113/59 (70/31 - 149/59) Blood pressure source: Monitor I/Os (05/04 07:00 - 05/05 07:00): Net 1,404.00 Intake 1,930.00 Output 526 -EXAM- GENERAL: GENERAL: Elderly male, NAD. VITAL SIGNS: Weight is 78.2 kilograms. Body mass index 27. HEENT: Head is atraumatic. Pupils are reactive to light and accommodation. Extraocular muscles intact. NECK: Supple. No thyromegaly. No JVD. CARDIOVASCULAR: Regular rate and rhythm. CHEST: sternotomy. 2 CTs. LUNGS: Clear to auscultation. ABDOMEN: Soft, nontender. EXTREMITIES: No edema, cyanosis or clubbing. Pedal pulses palpable. NEUROLOGIC: No focal deficit. -- DATA -- MEDICATIONS CALCIUM GLUC IN NACL, ISO-OSM 2 GM IV ASDIR PRN LACTULOSE 30 ML PO ASDIR PRN clopidogreL 75 MG PO DAILY CYANOCOBALAMIN 500 MCG PO DAILY EPINEPHrine HCL/D5W 4 MG IV ASDIR niCARdipine HCL with/in SODIUM CHLORIDE 100 mL BAG 25 MG IV TITRATE POTASSIUM CHLORIDE 20 MEQ PO ASDIR PRN MAGNESIUM 1 GM IV ASDIR PRN FERROUS SULFATE 325 MG PO DAILY DEXTROSE 50%-WATER 25 ML IV ASDIR PRN POTASSIUM CHLORIDE IN WATER 10 MEQ IV ASDIR (PRN) SOD BIPHOS/POT PHOSPHATE 2 PKT PO ASDIR PRN MAGNESIUM SULFATE 2 GM IV ASDIR (PRN) GLUCAGON 1 MG IM ASDIR PRN DEXTROSE 50%-WATER 25 ML IV ASDIR PRN bisacodyL 10 MG RECTAL ASDIR PRN ACETAMINOPHEN 650 MG PO Q4H PRN POTASSIUM CHLORIDE 20 MEQ IV ASDIR (PRN) polyethylene glycoL 3350 1 PKT PO DAILY ACETAMINOPHEN 650 MG RECTAL Q4H PRN MAGNESIUM SULFATE 4 G IV ASDIR (PRN) hydrALAZINE HCL 10 MG IV Q6HR PRN FINASTERIDE 5 MG PO BEDTIME (Held) SPIRONOLACTONE 25 MG PO DAILY (Held) LOSARTAN POTASSIUM 50 MG PO DAILY (Held) INSULIN GLARGINE 25 UNITS SUBQ 0800 GLUCAGON 1 MG IM ASDIR PRN SODIUM PHOSPHATE with/in SODIUM CHLORIDE 0.9% 20 MM IV ASDIR (PRN) carvediloL 25 MG PO BID MEALS ATORVASTATIN CALCIUM 80 MG PO BEDTIME HYDROcodone BITARTRATE/APAP 1 TAB PO Q4H PRN ALBUTEROL SULFATE 2.5 MG NEB RTQ6H PRN SENNOSIDES 2 TAB PO ASDIR PRN ONDANSETRON 4 MG PO Q6H PRN POTASSIUM CHLORIDE 20 MEQ PO ASDIR PRN LACTULOSE 30 ML PO ASDIR PRN MUPIROCIN 1 APPLIC NASAL BID SODIUM BICARBONATE 8.4% 50 MEQ IV .ONCE PRN SODIUM PHOSPHATE with/in SODIUM CHLORIDE 0.9% 30 MM IV ASDIR (PRN) HYDROmorphone HCL 0.5 MG IV Q4H PRN ASPIRIN 81 MG PO DAILY DOCUSATE SODIUM 200 MG PO DAILY (Held) INSULIN LISPRO 5 UNITS SUBQ C MEALS SODIUM CHLORIDE 10 mL 10 ML IV ASDIR ONDANSETRON HCL/PF 4 MG IV Q6H PRN ENOXAPARIN SODIUM 40 MG SUBQ Q24H FUROSEMIDE 20 MG IV BID@0500,1700 NITROGLYCERIN 0.4 MG SL Q5M PRN TAMSULOSIN 0.4 MG PO BEDTIME INSULIN LISPRO HIGH DOSE SS SUBQ AC HS LABS GLU BED (05/05/23 10:53) GLUBED 316 *H GLU BED (05/05/23 06:09) GLUBED 110 H VENOUS BLOOD GAS (05/05/23 05:53) VENOUS BLOOD GAS PH 7.33 L VENOUS BLOOD GAS PCO2 46.3 VENOUS BLOOD GAS PO2 33.4 VBG HCO3 24 VBG BASE EXCESS -2.3 VENOUS BLOOD GAS O2 SAT 61 VENOUS BLOOD GAS TYPE Venous VENOUS BLOOD GAS FIO2 21.0 VBG VENT MODE Room Air BASIC METABOLIC PANEL (05/05/23 03:09) SODIUM 139 POTASSIUM 4.4 CHLORIDE 107 CARBON DIOXIDE 27 GLUCOSE 86 BLOOD UREA NITROGEN 25H H GLOMERULAR FILTRATION RATE >=60 max estimate CREATININE 0.70 CALCIUM 7.8 L PHOS (05/05/23 03:09) PHOSPHOROUS 3.5 MAG (05/05/23 03:09) MAGNESIUM 2.1 CBC W/AUTO DIFF (05/05/23 03:09) WHITE BLOOD CELL 16.0H H RED BLOOD CELL 2.95 L HEMOGLOBIN 8.2D L D L HEMATOCRIT 24.2L L MEAN CELL VOLUME 82.0 MEAN CELL HGB 27.8 MEAN CELL HGB CONCENTRATION 33.9 RED CELL DISTRIBUTION WIDTH 13.5 PLATELET COUNT 150 MEAN PLATELET VOLUME 10.1 NEUTROPHIL % 74.4 LYMPHOCYTE % 9.6 L MONOCYTE % 14.6 H EOSINOPHIL % 0.3 BASOPHIL % 0.2 NEUTROPHIL # 11.90 H LYMPHOCYTE # 1.54 MONOCYTE # 2.34 H EOSINOPHIL # 0.05 BASOPHIL # 0.04 GLU BED (05/04/23 20:32) GLUBED 198 H GLU BED (05/04/23 17:17) GLUBED 154 H BASIC METABOLIC PANEL (05/04/23 16:18) SODIUM 137 POTASSIUM 4.4 CHLORIDE 107 CARBON DIOXIDE 24 GLUCOSE 167H H BLOOD UREA NITROGEN 18 GLOMERULAR FILTRATION RATE >=60 max estimate CREATININE 0.60L L CALCIUM 7.9 L PHOS (05/04/23 16:18) PHOSPHOROUS 3.0 MAG (05/04/23 16:18) MAGNESIUM 2.2 -- QUALITY -- -MEDICATIONS- - I attest that the foregoing medication list in the medical record is true, accurate, and complete to the best of my knowledge. -- ATTESTATION -- CARE ACTIVITIES / CARE COORDINATION: - I have reviewed the history and repeated the gupta elements - I have seen and examined this patient - I have reviewed the progress in the clinical course since the last examination - I have discussed the patient's condition with other members of the care team Signed in PatientKeeper by Rajesh Kilgore MD on 05/06/23 at 11:50 at 1150 ATTE NTION *EDITS and/or ADDENDA must be made in Patient Keeper for this note. * * Edits and ammendments created in [employer] are not visible * * in Patient Keeper or the legal medical record ([facility]). * RPT #: [id number] END OF REPORT [facility] 2023-05-05 13:49:00 [facility] ([facility]) Intensive Care Progress Note REPORT #: [id number] REPORT STATUS: Signed DATE: 05/05/23 TIME: 1349 PATIENT: LUIS GUZMÁN UNIT #: [id number] ROOM #: [facility] BED: 1 : 55 AGE: 67 SEX: M ATTEND: Rajesh Kilgore MD ADM AUTHOR: Mihaela Mehta MD ATTE NTION *EDITS and/or ADDENDA must be made in Patient Keeper for this note. * * Edits and ammendments created in [employer] are not visible * * in Patient Keeper or the legal medical record ([facility]). * -- ASSESSMENT AND PLAN -- HOSPITAL COURSE TO DATE: The patient is a 67-year- man who has a past medical history of diabetes (on insulin, HgbA1c 8.2), hypertension, hyperlipidemia, CVA with residual left-sided weakness, AV fistula repair in the neck. Patient underwent a selective coronary angiogram on 04/28/2023 at [facility] demonstrating distal left main disease (90%), LAD (99%), ostial LCx (90%), big RI (99%), OM1 (small, 80%), LVEF 50-55%. He was transferred here for urgent bypass surgery with Dr. Wilfrido Gray. 05/03: Patient underwent CABG, WERNER to LAD, SVG to Ramus by Dr. Gray. Intra-op uneventful. Normal biv function pre and intra-op and easy intubation per anesthesia. Intra-op I/O: Crystalloid 2200 ml, CS 225 ml; EBL 750 ml, UO 750 ml. Patient is transferred to CVICU for ongoing post op management. GENERAL ASSESSMENT: ASSESSMENT/PLAN: Overall: ICU Management of patient s/p CABG x2, 05/03 NEURO: Acute encephalopathy- resolved Acute postoperative pain CVA with residual left-sided weakness - MM Pain regimen - PT/OT PULM: Acute respiratory insufficiency Atelectasis COVID positive- asymptomatic - ABG and CXR reviewed and acceptable - Extubated fast track to NV; weaned off and saturating well on RAO2 on POD 0 - cont IS for volume expansion CVS: MV CAD Hyperlipidemia Hx AV fistula repair in the neck Hypertension - S/p CABG x 2 - On DAPT; statin and BB--hold parameters placed on coreg, he has received his am dose this am without drop in BP - hold losartan with hypotension overnight and low normal BP this am - CT management per CVS GI: Cardiac diet - GI ppx: Not indicated - Bowel regimen-no BM yet, give laxatives RENAL: BPH - Baseline creatinine 0.5 - Continue to monitor UOP, renal function and electrolytes - Replete electrolytes per protocol - Intermittent diuretics, resumed home Flomax - BMP, Mg daily HEM: Acute blood loss anemia - Stable and without need for transfusion - CT removed today - Trend coags; CBC daily ENDO: 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 (HgbA1c 8.2) - POCT AC/HS - SSI + lantus ID: Leukocytosis, likely reactive-trending down Afebrile COVID-19+ (asymptomatic) - Completed rogelio-op abx - Monitor for s/s of infection Code Status: Full code Disposition: ICU ICU CHECKLIST: Analgesia: Opioids Glycemic Control: Insulin Nutrition: Diet Ulcer Prophylaxis: PPI Chemical Thromboprophylaxis: Add Lovenox after CT removal Mechanical Thromboprophylaxis: SCD and Compression stockings Need for Central line: remove today Need for Dumont catheter: removed 05/04 Case discussed in MDR rounds -- SUBJECTIVE -- HPI: Pt had hypotension overnight, responded to albumin bolus x3. This am normotensive but with drop in uop. Pt is seen sitting up in bedside chair, on room air. -- OBJECTIVE -- VITALS (05/04 13:49 - 05/05 13:49): Temperature F: 97.5 (97.0 - 97.6) Temperature source: Oral Pulse Rate 68 (53 - 79) Respiratory rate: 17 (8 - 49) Blood pressure: 113/59 (70/31 - 149/59) Blood pressure source: Monitor I/Os (05/04 07:00 - 05/05 07:00): Net 1,404.00 Intake 1,930.00 Output 526 -EXAM- GENERAL: Well developed, well nourished, in no apparent distress. HEAD: Normocephalic, atraumatic. EYES: PERRL, EOM intact, conjunctiva and sclera clear, without nystagmus, lids normal. MOUTH: Oropharynx without deformities or lesions, normal mucosa. LUNGS: decreased BS bibasilar HEART: Regular rate and rhythm, normal S1, S2, no murmurs, no rubs, no gallops, no clicks. EXTREMITIES: No clubbing, no cyanosis, no edema. -- DATA -- MEDICATIONS CALCIUM GLUC IN NACL, ISO-OSM 2 GM IV ASDIR PRN LACTULOSE 30 ML PO ASDIR PRN clopidogreL 75 MG PO DAILY CYANOCOBALAMIN 500 MCG PO DAILY EPINEPHrine HCL/D5W 4 MG IV ASDIR niCARdipine HCL with/in SODIUM CHLORIDE 100 mL BAG 25 MG IV TITRATE POTASSIUM CHLORIDE 20 MEQ PO ASDIR PRN MAGNESIUM 1 GM IV ASDIR PRN FERROUS SULFATE 325 MG PO DAILY DEXTROSE 50%-WATER 25 ML IV ASDIR PRN POTASSIUM CHLORIDE IN WATER 10 MEQ IV ASDIR (PRN) SOD BIPHOS/POT PHOSPHATE 2 PKT PO ASDIR PRN MAGNESIUM SULFATE 2 GM IV ASDIR (PRN) GLUCAGON 1 MG IM ASDIR PRN DEXTROSE 50%-WATER 25 ML IV ASDIR PRN bisacodyL 10 MG RECTAL ASDIR PRN ACETAMINOPHEN 650 MG PO Q4H PRN POTASSIUM CHLORIDE 20 MEQ IV ASDIR (PRN) polyethylene glycoL 3350 1 PKT PO DAILY ACETAMINOPHEN 650 MG RECTAL Q4H PRN MAGNESIUM SULFATE 4 G IV ASDIR (PRN) hydrALAZINE HCL 10 MG IV Q6HR PRN FINASTERIDE 5 MG PO BEDTIME (Held) SPIRONOLACTONE 25 MG PO DAILY (Held) LOSARTAN POTASSIUM 50 MG PO DAILY (Held) INSULIN GLARGINE 25 UNITS SUBQ 0800 GLUCAGON 1 MG IM ASDIR PRN SODIUM PHOSPHATE with/in SODIUM CHLORIDE 0.9% 20 MM IV ASDIR (PRN) carvediloL 25 MG PO BID MEALS ATORVASTATIN CALCIUM 80 MG PO BEDTIME HYDROcodone BITARTRATE/APAP 1 TAB PO Q4H PRN ALBUTEROL SULFATE 2.5 MG NEB RTQ6H PRN SENNOSIDES 2 TAB PO ASDIR PRN ONDANSETRON 4 MG PO Q6H PRN POTASSIUM CHLORIDE 20 MEQ PO ASDIR PRN LACTULOSE 30 ML PO ASDIR PRN MUPIROCIN 1 APPLIC NASAL BID SODIUM BICARBONATE 8.4% 50 MEQ IV .ONCE PRN SODIUM PHOSPHATE with/in SODIUM CHLORIDE 0.9% 30 MM IV ASDIR (PRN) HYDROmorphone HCL 0.5 MG IV Q4H PRN ASPIRIN 81 MG PO DAILY DOCUSATE SODIUM 200 MG PO DAILY (Held) INSULIN LISPRO 5 UNITS SUBQ C MEALS SODIUM CHLORIDE 10 mL 10 ML IV ASDIR ONDANSETRON HCL/PF 4 MG IV Q6H PRN ENOXAPARIN SODIUM 40 MG SUBQ Q24H FUROSEMIDE 20 MG IV BID@0500,1700 NITROGLYCERIN 0.4 MG SL Q5M PRN TAMSULOSIN 0.4 MG PO BEDTIME INSULIN LISPRO HIGH DOSE SS SUBQ AC HS LABS GLU BED (05/05/23 10:53) GLUBED 316 *H GLU BED (05/05/23 06:09) GLUBED 110 H VENOUS BLOOD GAS (05/05/23 05:53) VENOUS BLOOD GAS PH 7.33 L VENOUS BLOOD GAS PCO2 46.3 VENOUS BLOOD GAS PO2 33.4 VBG HCO3 24 VBG BASE EXCESS -2.3 VENOUS BLOOD GAS O2 SAT 61 VENOUS BLOOD GAS TYPE Venous VENOUS BLOOD GAS FIO2 21.0 VBG VENT MODE Room Air BASIC METABOLIC PANEL (05/05/23 03:09) SODIUM 139 POTASSIUM 4.4 CHLORIDE 107 CARBON DIOXIDE 27 GLUCOSE 86 BLOOD UREA NITROGEN 25H H GLOMERULAR FILTRATION RATE >=60 max estimate CREATININE 0.70 CALCIUM 7.8 L PHOS (05/05/23 03:09) PHOSPHOROUS 3.5 MAG (05/05/23 03:09) MAGNESIUM 2.1 CBC W/AUTO DIFF (05/05/23 03:09) WHITE BLOOD CELL 16.0H H RED BLOOD CELL 2.95 L HEMOGLOBIN 8.2D L D L HEMATOCRIT 24.2L L MEAN CELL VOLUME 82.0 MEAN CELL HGB 27.8 MEAN CELL HGB CONCENTRATION 33.9 RED CELL DISTRIBUTION WIDTH 13.5 PLATELET COUNT 150 MEAN PLATELET VOLUME 10.1 NEUTROPHIL % 74.4 LYMPHOCYTE % 9.6 L MONOCYTE % 14.6 H EOSINOPHIL % 0.3 BASOPHIL % 0.2 NEUTROPHIL # 11.90 H LYMPHOCYTE # 1.54 MONOCYTE # 2.34 H EOSINOPHIL # 0.05 BASOPHIL # 0.04 GLU BED (05/04/23 20:32) GLUBED 198 H GLU BED (05/04/23 17:17) GLUBED 154 H BASIC METABOLIC PANEL (05/04/23 16:18) SODIUM 137 POTASSIUM 4.4 CHLORIDE 107 CARBON DIOXIDE 24 GLUCOSE 167H H BLOOD UREA NITROGEN 18 GLOMERULAR FILTRATION RATE >=60 max estimate CREATININE 0.60L L CALCIUM 7.9 L PHOS (05/04/23 16:18) PHOSPHOROUS 3.0 MAG (05/04/23 16:18) MAGNESIUM 2.2 Signed in PatientKeeper by Mihaela Mehta MD on 05/05/23 at 14:07 at 1407 ATTE NTION *EDITS and/or ADDENDA must be made in Patient Keeper for this note. * * Edits and ammendments created in [facility] are not visible * * in Patient Keeper or the legal medical record ([facility]). * [facility] #: [id number] END OF REPORT [facility] 2023-05-05 12:40:00 [id number] [place] [address] [place] [id number] PATIENT NAME: LUIS GUZMÁN ADMIT DATE: 04/28/23 ACCOUNT NO: [id number] ROOM NO: P.0308 AGE: 67 REPORT TYPE: 360 - QUERY RESPONSE DOCUMENT SEX: M ADMITTING PHYSICIAN:Rajesh Kilgore MD ATTENDING PHYSICIAN:Rajesh Kilgore MD Provider Query QUERY TEXT: Specificity General 360MD Query related questions should be directed to:[facility] Coding Query Helpline Please provide any known specificity for encephalopathy documented in the Intensive Care Consultation 05/03/2023 [metabolic encephalopathy, septic encephalopathy, other encephalopathy, encephalopathy unspecified] The patient's Clinical Indicators include: encephalopathy- Intensive Care Consultation 05/03/2023 COVID-19+ (asymptomatic)- Intensive Care Progress Note 05/04/2023 viral illness/pneumonia- HISTORY and PHYSICAL 04/28/2023 Fatigue and tiredness- HISTORY and PHYSICAL 04/28/2023 Vancomycin 1,000 mg Inj-mar on 05/03/23 Options provided: -- Respond - Create new note now -- Dismiss - Not applicable / Not valid -- Dismiss - Clinically unable to determine / Unknown -- Assign to another provider QUERY RESPONSE: please assign to documenting provider Query created by: Ro Espinoza on 05/04/2023 9:02 PM at 1240 PATIENT NAME: LUIS GUZMÁN [facility] 2023-05-05 12:08:00 [id number] [id number] [place] [address] PATIENT NAME: LUIS GUZMÁN ADMIT DATE: 04/28/23 ACCOUNT NO: [id number] ROOM NO: P.0308 AGE: 67 REPORT TYPE: 360 - QUERY RESPONSE DOCUMENT SEX: M ADMITTING PHYSICIAN:Rajesh Kilgore MD ATTENDING PHYSICIAN:Rajesh Kilgore MD Provider Query QUERY TEXT: Clarification Infectious Status POA 360MD Query related questions should be directed to:[facility] Coding Query Helpline Based on your clinical judgment, please clarify the condition(s) that represent(s) the clinical indicators listed below and if the condition(s) are present on admission (POA). The following definitions are provided based on industry literature and in collaboration with [facility] Clinical Services Group for your reference only: --Localized Infection - An infection that affects only one organ or body part (e.g., UTI, Pneumonia) --Bacteremia - Nonspecific laboratory finding of bacteria in the blood --Sepsis - A presumed or confirmed systemic response to infectious process with >2 clinical indicators such as: Temperature >38.3C or <36.0C, tachycardia, > 20 respiratory rate, WBC >12,000 or < 4,000 or > 10% bands --Severe Sepsis - Sepsis with additional clinical indicators such as Organ failure with any of the following: systolic BP < 90 or MAP < 65 or SBP decrease more 40 mm Hg from last recorded SBP considered normal for patient, Creatinine > 2.0, urine output < 0.5 ml/kg/hour for 2 hours, Bilirubin > 2 mg/dL, platelet count < 100,000, INR > 1.5, PTT > 60 sec, lactate > 2 mmol/L --Septic Shock - Severe Sepsis with Lactic acid > 4 mmol/L or persistent hypotension The patient's Clinical Indicators include: respiratory rate 26- HISTORY and PHYSICAL 04/28/2023 Pulse Rate 49- Cardiology Progress Notes 04/29/2023 encephalopathy- Intensive Care Consultation 05/03/2023 COVID-19+ (asymptomatic)- Intensive Care Progress Note 05/04/2023 viral illness/pneumonia- HISTORY and PHYSICAL 04/28/2023 Fatigue and tiredness- HISTORY and PHYSICAL 04/28/2023 Vancomycin 1,000 mg Inj-mar on 05/03/23 Options provided: -- Sepsis, Please specify POA status (i.e., Y=Yes, N=No, W=Unable to clinically determine) and causative organism if known. -- Severe Sepsis, Please specify POA status (i.e., Y=Yes, N=No, W=Unable to clinically determine) and causative organism if known. -- Severe Sepsis with septic shock, Please specify POA status (i.e., Y=Yes, N=No, W=Unable to clinically determine) and causative organism if known. -- Localized infection, Please specify the infection and POA status (i.e., Y=Yes, N=No, W=Unable to clinically determine). -- Other - I will add my own diagnosis -- Dismiss - Not applicable / Not valid -- Dismiss - Clinically unable to determine / Unknown -- Assign to another provider QUERY RESPONSE: The patient has sepsis. Query created by: Ro Espinoza on 05/04/2023 9:07 PM at 1208 PATIENT NAME: LUIS GUZMÁN [facility] 2023-05-05 11:08:00 [facility] ([facility]) Cardiology Progress Notes REPORT #: [id number] REPORT STATUS: Signed DATE: 05/05/23 TIME: 1108 PATIENT: LUIS GUZMÁN UNIT #: [id number] ROOM #: P.0420 BED: A : 55 AGE: 67 SEX: M ATTEND: Rajesh Kilgore MD ADM AUTHOR: Andres Patel MD CF1 ATTE NTION *EDITS and/or ADDENDA must be made in Patient Keeper for this note. * * Edits and ammendments created in [employer] are not visible * * in Patient Keeper or the legal medical record ([facility]). * -- CO-SIGNATURE -- COMMENTS: The patient was seen on rounds with Andres Patel MD The patient has no complaints Examination demonstrates normal heart sounds and clear lung mcmanus. Impression and plan The patient is a 67-year-old gentleman with a history of hypertension, hypertension lipidemia, diabetes mellitus who is now status post two-vessel bypass surgery. Hopefully chest tubes can be removed by CV surgery today. Continue dual antiplatelet therapy, statin and on beta-blockade Continue occupational and physical therapy. Ambulate the patient. Signed in PatientKeeper by JUAN M WIE MD on 05/08/23 at 10:00 -- ASSESSMENT AND PLAN -- HOSPITAL COURSE TO DATE: 05/03/2023: S/P 2 Vessel CAB WERNER to LAD and Left Great Saphenous vein to Ram[facility]medi[facility]. 05/04/2023" PVC burden was due to the external pacemaker, murmurs present, ECHO to follow. 05/05/2023: Patient stable this morning, denied chest pain, shortness of breath or palpitations. GENERAL ASSESSMENT: Mr. Guzmán is a 67 YO gentleman with PMH of HTN, DM, HLD, who underwent a selective coronary angiogram on 04/28/2023 at [facility] demonstrating distal left main disease (90%), LAD (99%), ostial left circumflex (90%), RI (99%), OM1 (small, 80%), LVEF 50-55%, currently s/p 2 vessels Bypass with WERNER to LAD and Saphenous vein graft to RI. The patient is sitting in chair in no distress, has his antihypertensive medications optimization initiated yesterday but there was significant drop in blood pressure early this morning. PROBLEMS: 1: Coronary artery disease A/P: Mr. Guzmán is a 67-year-old gentleman who is referred by Dr. Katya Cruz and who was having worsening symptoms of fatigue and possibly chest discomfort, underwent a selective coronary angiogram on 04/28/2023 at [facility] demonstrating distal left main disease (90%), LAD (99%), ostial LCx (90%), RI (99%), OM1 (small, 80%), ECHO with LVEF 50-55%, and restrictive physiology with diastolic dysfunction. He was transferred here for urgent bypass surgery with Dr. Wilfrido Gray. Mildly congested on physical exam. # S/P CABG x 2, WERNER to LAD and SVG to RI. POD # 2. - Hemodynamically stable, - Continue Aspirin 81 mg po daily, Atorvastatin 80mg daily, Carvedilol 25mg BID, on Lasix 20 mg two times a day, to give one extra dose of Lasix this morning. -Initiate Plavix 75 mg post CABG. 2: S/P CABG x 2 A/P: On 05/03/2023, WERNER to LAD , SVG to RI 2 Chest Tubes present - Managed per CV Surgery. Pacer wires and bed side external pacemaker present. 3: Hypertension A/P: Pt has a long history of HTN, has been on polypharmacy. We are going to adjust the medications by up titrating the Coreg dose, ARB and holding off Nifedipine and HCTZ. Due to transient and medically corrected/intervened hypotension early this morning, we are holding off the ARB as well. Would gradually resume one by one, however will continue to hold Procardia for now. -- SUBJECTIVE -- CHIEF COMPLAINT: No new symptom this AM. HPI: Mr. Guzmán is a 67-year-old gentleman with past medical history of hypertension, DM (Insulin dependent, HgbA1C 8.2) hyperlipidemia, CVA, with let sided residual weakness, AV fistula, repair in the neck, who was referred to our service by Dr. Katya Cruz and who was having worsening symptoms of fatigue and chest discomfort. He underwent a selective coronary angiogram on 04/28/2023 at [facility] demonstrating distal left main disease (90%), LAD (99%), ostial left circumflex (90%), RI (99%), OM1 (small, 80%), LVEF 50-55%. He was transferred here for urgent bypass surgery with Dr. Wilfrido Gray. He underwent 2 Vessel CAB yesterday. Currently the patient is stable, has had an episode of hypotension last night/early this morning, remained stable afterwards, no issues this morning, still congestion on physical exam, will continue to diurese him. PATIENT NARRATIVE: Denied chest pain, shortness of breath, or palpitations. -REVIEW OF SYSTEMS- GENERAL: Negative for fever, malaise, fatigue. RESPIRATORY: Negative for dyspnea or wheeze. No cough. CARDIOVASCULAR: Negative for chest pain or palpitations. No extremity swelling. GASTROINTESTINAL: Negative for abdominal pain or nausea. No emesis. No diarrhea. GENITOURINARY: Negative for dysuria, frequency, or urgency. No gross hematuria. MUSCULOSKELETAL: Negative for joint stiffness, pain, or arthralgias. SKIN: Negative for rashes. No pruritus. NEUROLOGICAL: Negative for headache. No vertigo. Denies paresthesias. PSYCHIATRIC: Negative for specific complaints. -- OBJECTIVE -- VITALS (05/04 11:08 - 05/05 11:08): Temperature F: 97.5 (97.0 - 97.6) Temperature source: Oral Pulse Rate 70 (53 - 77) Respiratory rate: 16 (8 - 45) Blood pressure: 117/58 (70/31 - 155/67) Blood pressure source: Monitor I/Os (05/04 07:00 - 05/05 07:00): Net 1,404.00 Intake 1,930.00 Output 526 -EXAM- GENERAL: Well developed, well nourished, in no apparent distress. HEAD: Normocephalic, atraumatic. NOSE: No deformity, no discharge, no inflammation, no lesions. MOUTH: Oropharynx without deformities or lesions, normal mucosa.. NECK: No masses, no thyromegaly, no abnormal cervical nodes, trachea midline. CHEST: Grossly normal appearance. LUNGS: Clear bilaterally with normal respiratory effort. HEART: Regular rate and rhythm, normal S1, S2, no murmurs, no rubs, no gallops, no clicks. ABDOMEN: Soft, non-tender, no organomegaly, no masses noted. MUSCULOSKELETAL: No deformity, no scoliosis noted of thoracic or lumbar spine, joint ROM grossly normal, normal gait and station. EXTREMITIES: No clubbing, no cyanosis, no edema. NEUROLOGICAL: No focal deficits, cranial nerves II-XII grossly intact, normal sensation, normal reflexes, normal coordination, normal muscle strength, normal tone. -- DATA -- MEDICATIONS CALCIUM GLUC IN NACL, ISO-OSM 2 GM IV ASDIR PRN LACTULOSE 30 ML PO ASDIR PRN clopidogreL 75 MG PO DAILY CYANOCOBALAMIN 500 MCG PO DAILY EPINEPHrine HCL/D5W 4 MG IV ASDIR niCARdipine HCL with/in SODIUM CHLORIDE 100 mL BAG 25 MG IV TITRATE POTASSIUM CHLORIDE 20 MEQ PO ASDIR PRN MAGNESIUM 1 GM IV ASDIR PRN traMADol HCL 50 MG PO Q6HR FERROUS SULFATE 325 MG PO DAILY DEXTROSE 50%-WATER 25 ML IV ASDIR PRN POTASSIUM CHLORIDE IN WATER 10 MEQ IV ASDIR (PRN) SOD BIPHOS/POT PHOSPHATE 2 PKT PO ASDIR PRN MAGNESIUM SULFATE 2 GM IV ASDIR (PRN) GLUCAGON 1 MG IM ASDIR PRN DEXTROSE 50%-WATER 25 ML IV ASDIR PRN ACETAMINOPHEN 650 MG PO Q6HR bisacodyL 10 MG RECTAL ASDIR PRN ACETAMINOPHEN 650 MG PO Q4H PRN POTASSIUM CHLORIDE 20 MEQ IV ASDIR (PRN) polyethylene glycoL 3350 1 PKT PO DAILY ACETAMINOPHEN 650 MG RECTAL Q4H PRN MAGNESIUM SULFATE 4 G IV ASDIR (PRN) hydrALAZINE HCL 10 MG IV Q6HR PRN FINASTERIDE 5 MG PO BEDTIME (Held) SPIRONOLACTONE 25 MG PO DAILY (Held) LOSARTAN POTASSIUM 50 MG PO DAILY (Held) INSULIN GLARGINE 25 UNITS SUBQ 0800 GLUCAGON 1 MG IM ASDIR PRN SODIUM PHOSPHATE with/in SODIUM CHLORIDE 0.9% 20 MM IV ASDIR (PRN) carvediloL 25 MG PO BID MEALS ATORVASTATIN CALCIUM 80 MG PO BEDTIME HYDROcodone BITARTRATE/APAP 1 TAB PO Q4H PRN ALBUTEROL SULFATE 2.5 MG NEB RTQ6H PRN SENNOSIDES 2 TAB PO ASDIR PRN ONDANSETRON 4 MG PO Q6H PRN POTASSIUM CHLORIDE 20 MEQ PO ASDIR PRN LACTULOSE 30 ML PO ASDIR PRN MUPIROCIN 1 APPLIC NASAL BID SODIUM BICARBONATE 8.4% 50 MEQ IV .ONCE PRN SODIUM PHOSPHATE with/in SODIUM CHLORIDE 0.9% 30 MM IV ASDIR (PRN) HYDROmorphone HCL 0.5 MG IV Q4H PRN ASPIRIN 81 MG PO DAILY DOCUSATE SODIUM 200 MG PO DAILY (Held) INSULIN LISPRO 5 UNITS SUBQ C MEALS SODIUM CHLORIDE 10 mL 10 ML IV ASDIR ONDANSETRON HCL/PF 4 MG IV Q6H PRN ENOXAPARIN SODIUM 40 MG SUBQ Q24H FUROSEMIDE 20 MG IV BID@0500,1700 NITROGLYCERIN 0.4 MG SL Q5M PRN TAMSULOSIN 0.4 MG PO BEDTIME INSULIN LISPRO HIGH DOSE SS SUBQ AC HS LABS GLU BED (05/05/23 10:53) GLUBED 316 *H GLU BED (05/05/23 06:09) GLUBED 110 H VENOUS BLOOD GAS (05/05/23 05:53) VENOUS BLOOD GAS PH 7.33 L VENOUS BLOOD GAS PCO2 46.3 VENOUS BLOOD GAS PO2 33.4 VBG HCO3 24 VBG BASE EXCESS -2.3 VENOUS BLOOD GAS O2 SAT 61 VENOUS BLOOD GAS TYPE Venous VENOUS BLOOD GAS FIO2 21.0 VBG VENT MODE Room Air CBC W/AUTO DIFF (05/05/23 03:09) WHITE BLOOD CELL 16.0H H RED BLOOD CELL 2.95 L HEMOGLOBIN 8.2D L D L HEMATOCRIT 24.2L L MEAN CELL VOLUME 82.0 MEAN CELL HGB 27.8 MEAN CELL HGB CONCENTRATION 33.9 RED CELL DISTRIBUTION WIDTH 13.5 PLATELET COUNT 150 MEAN PLATELET VOLUME 10.1 NEUTROPHIL % 74.4 LYMPHOCYTE % 9.6 L MONOCYTE % 14.6 H EOSINOPHIL % 0.3 BASOPHIL % 0.2 NEUTROPHIL # 11.90 H LYMPHOCYTE # 1.54 MONOCYTE # 2.34 H EOSINOPHIL # 0.05 BASOPHIL # 0.04 BASIC METABOLIC PANEL (05/05/23 03:09) SODIUM 139 POTASSIUM 4.4 CHLORIDE 107 CARBON DIOXIDE 27 GLUCOSE 86 BLOOD UREA NITROGEN 25H H GLOMERULAR FILTRATION RATE >=60 max estimate CREATININE 0.70 CALCIUM 7.8 L PHOS (05/05/23 03:09) PHOSPHOROUS 3.5 MAG (05/05/23 03:09) MAGNESIUM 2.1 GLU BED (05/04/23 20:32) GLUBED 198 H GLU BED (05/04/23 17:17) GLUBED 154 H BASIC METABOLIC PANEL (05/04/23 16:18) SODIUM 137 POTASSIUM 4.4 CHLORIDE 107 CARBON DIOXIDE 24 GLUCOSE 167H H BLOOD UREA NITROGEN 18 GLOMERULAR FILTRATION RATE >=60 max estimate CREATININE 0.60L L CALCIUM 7.9 L PHOS (05/04/23 16:18) PHOSPHOROUS 3.0 MAG (05/04/23 16:18) MAGNESIUM 2.2 GLU BED (05/04/23 11:34) GLUBED 152 H Signed in PatientKeeper by Andres Patel MD CF1 on 05/05/23 at 11:18 Cosigned by JUAN M WEI MD on 05/08/23 at 10:00 at 1000 at 1000 ATTE NTION *EDITS and/or ADDENDA must be made in Patient Keeper for this note. * * Edits and ammendments created in [employer] are not visible * * in Patient Keeper or the legal medical record ([facility]). * [facility] #: [id number] END OF REPORT [facility] 2023-05-05 09:04:00 [id number] [place] [address] PATIENT NAME: LUIS GUZMÁN ADMIT DATE: 04/28/23 ACCOUNT NO: [id number] ROOM NO: [id number] AGE: 67 REPORT TYPE: eECHOCARDIOGRAM REPORT SEX: M ADMITTING PHYSICIAN: Rajesh Kilgore MD ATTENDING PHYSICIAN: Rajesh Kilgore MD *[facility]* [address] [place] [address] Transthoracic Echocardiogram Patient: Luis Guzmán Study Date: 05/04/2023 BP: URN: [id number] Location: : 1955 Age: 67 Gender: M Height: 67 in / 170.2 cm Weight: 169 lb / 76.7 kg BMI/BSA: 26.5 kg/m 2 / 1.92 m 2 *Ordering Physician: * Andres Patel *Interpreting Physician: * Juan M Wei M.D. *College Advisor: * Catalina Patrick Indications: POST CABG, HEART MURMUR. Study data: Transthoracic echocardiogram. Procedure: A transthoracic echocardiogram was performed. The study was technically limited due to surgical dressings. Complete 2D, complete spectral Doppler, and color Doppler. Location: Bedside. Patient room number: 308. Findings Left ventricle: The cavity size is normal. Wall thickness is normal. Systolic function is at the lower limits of normal. The estimated ejection fraction is 50-54%. Wall motion is normal; there are no regional wall motion abnormalities. Doppler parameters are consistent with restrictive physiology, indicative of decreased left ventricular diastolic compliance and/or increased left atrial pressure. PATIENT NAME: LUIS GUZMÁN Right ventricle: The cavity size is normal. Systolic function is normal. Left atrium: The atrium is normal in size. Right atrium: The atrium is normal in size. Aorta: Aortic root: The root is normal-sized. Aortic valve: The valve is trileaflet. The leaflets are mildly calcified. There is no evidence of stenosis. There is no regurgitation. Mitral valve: The valve is structurally normal. There is no evidence of stenosis. There is trivial regurgitation. Tricuspid valve: The valve is structurally normal. There is trivial regurgitation. Pulmonic valve: The valve is structurally normal. There is no regurgitation. Pericardium: There is no pericardial effusion. There is a left pleural effusion. Pulmonary arteries: The main pulmonary artery is normal-sized. Systemic veins: Inferior vena cava: The IVC is poorly visualized. Measurements Left ventricle Value Ref 04/29/2023 JESSICA, LAX 4.8 cm 4.2 - 5.8 5.0 ESD, LAX 3.7 cm 2.5 - 4.0 3.7 FS, LAX 22 % 26 JESSICA major ax, A2C 8.4 cm --------- 8.8 ESD major ax, A2C 6.0 cm --------- 7.0 IVS, ED 1.4 cm 0.6 - 1.0 1.3 IVS, ES 1.7 cm --------- 1.9 ESD 3.7 cm 2.5 - 4.0 3.7 FS 22 % PW, ED 1.4 cm 0.6 - 1.0 1.2 PW, ES 1.7 cm --------- 1.6 IVS/PW, ED 1.05 --------- 1.05 EF 45 % 52 - 72 51 EF, MM on 2D Teich. 45 % >=55 51 E', lat kai, TDI 9.3 cm/sec >=10.0 11.4 E/e', lat kai, TDI 11 <=13 9 E', med kai, TDI 7.0 cm/sec >=7.0 6.5 E/e', med kai, TDI 15 --------- 16 E', avg, TDI 8.2 cm/sec --------- 8.9 E/e', avg, TDI 13 <=14 12 LVOT Value Ref 04/29/2023 Diam, S 2.06 cm --------- 2.06 Area 3.3 cm 2 --------- 3.3 Peak neha, S 0.88 m/sec --------- 1 Mean neha, S 0.57 m/sec --------- 0.67 VTI, S 14.8 cm --------- 20.8 Peak grad, S 3 mm Hg --------- 4 Mean grad, S 2 mm Hg --------- 2 SV 50 ml --------- 69 SV/bsa 26 ml/m 2 --------- 36 PATIENT NAME: LUIS GUZMÁN Left atrium Value Ref 04/29/2023 LA ID 4.6 cm --------- 4.2 AP dim, ES 4.6 cm 3.0 - 4.0 4.2 AP dim ES, LAX 4.6 cm 3.0 - 4.0 4.2 SI dim ES, LAX 4.6 cm --------- 4.2 Vol/bsa, S 33 ml/m 2 16 - 34 39 Vol, ES, 2-p 65 ml --------- 78 Vol/bsa, ES, 2-p 34 ml/m 2 16 - 34 40 LA/Ao root ratio 1.14 --------- 1.06 AP dim, ES MM 4.6 cm 3.0 - 4.0 4.2 LA/Ao root ratio, MM 1 --------- 1 Aortic valve Value Ref 04/29/2023 Peak v, S 1.5 m/sec --------- 1.9 Mean v, S 1 m/sec --------- 1.29 VTI, S 26.0 cm --------- 37.1 Mean grad, S 5 mm Hg --------- 7 Peak grad, S 9.1 mm Hg --------- 14.2 LVOT/AV, VTI ratio 0.57 --------- 0.56 EMILY, VTI 1.91 cm 2 --------- 1.87 LVOT/AV, Vpeak ratio 0.58 --------- 0.53 EMILY, Vmax 1.94 cm 2 --------- 1.77 Mitral valve Value Ref 04/29/2023 Mean v, D 0.69 m/sec --------- 0.54 Peak E 0.08 m/sec --------- 0.09 Peak A 0.48 m/sec --------- 0.75 VTI leaflet coapt 31.0 cm --------- 40.9 MiV/LVOT VTI 2.1 --------- 2.0 Decel time 164 ms --------- 237 PHT 75 ms --------- 76 Mean grad, D 2 mm Hg --------- 1 Peak grad, D 5.2 mm Hg --------- 4.4 Peak E/A ratio 2.19 --------- 1.42 MVA, PHT 2.9 cm 2 --------- 2.9 Tricuspid valve Value Ref 04/29/2023 TR peak v 2.7 m/sec <=2.8 Peak RV-RA grad, S 29 mm Hg --------- Aortic root Value Ref 04/29/2023 Root diam 4.0 cm 2.6 - 4.1 4.0 Root diam, ED MM 4.6 cm --------- 4.2 Ascending aorta Value Ref 04/29/2023 AAo AP diam, S 4.1 cm --------- 3.7 Conclusions Summary: 1. Left ventricle: The cavity size is normal. Wall thickness is normal. PATIENT NAME: LUIS GUZMÁN Systolic function is at the lower limits of normal. The estimated ejection fraction is 50-54%. Wall motion is normal; there are no regional wall motion abnormalities. Doppler parameters are consistent with restrictive physiology, indicative of decreased left ventricular diastolic compliance and/or increased left atrial pressure. 2. Pericardium, extracardiac: There is a left pleural effusion. Electronically signed by Juan M Wei M.D. 05/05/2023 09:03 at 0904 PATIENT NAME: LUIS GUZMÁN [facility] 2023-05-04 13:17:00 [facility] ([facility]) Hospitalist Progress Note REPORT #: [id number] REPORT STATUS: Signed DATE: 05/04/23 TIME: 1317 PATIENT: LUIS GUZMÁN UNIT #: [id number] ROOM #: P.[facility] BED: 1 : 55 AGE: 67 SEX: M ATTEND: Rajesh Kilgore MD ADM AUTHOR: Rajesh Kilgore MD ATTE NTION *EDITS and/or ADDENDA must be made in Patient Keeper for this note. * * Edits and ammendments created in [employer] are not visible * * in Patient Keeper or the legal medical record ([facility]). * -- ASSESSMENT AND PLAN -- GENERAL ASSESSMENT: ASSESSMENT AND PLAN: 1. Critical multivessel coronary artery disease including distal left main, 90-99%, at the origin of the left anterior descending, the origin of the circumflex, first diagonal with 99% first obtuse marginal with 80%, and a left ventricular ejection fraction of 50-55% with anteroapical hypokinesis. The patient apparently had a non-ST segment elevation myocardial infarction a few weeks ago. His disease is not amenable to percutaneous coronary intervention. I will continue to hold clopidogrel and metformin. Start heparin infusion. Continue beta blockers and statins. the patient underwent Urgent CABG X 2 using cardiopulmonary bypass Left internal mammary artery bypass to the left anterior descending and first diagonal coronary arteries (sequential graft) Reversed saphenous vein graft to the ramus intermedius coronary artery by Dr Wilfrido Gray 05/03/23. 2. Diabetes mellitus type 2, not well controlled. Hemoglobin A1c is 8.2. Continue long-acting and short-acting insulins. 3. Hypertension, continue carvedilol and nifedipine. We will hold angiotensin receptor blockers perioperatively. 4. Benign prostatic hypertrophy. Continue finasteride and tamsulosin. 5. History of cerebrovascular accident, with minimal left-sided residual weakness. 6. Chronic kidney disease stage II. 7. Anemia. 7A. Acute surgical blood loss anemia. 8. Subsegmental atelectasis. Incentive spirometry. 9. Leukocytosis, reactive. ADDITIONAL COMMENTS: s/p CABG x 2, 05/03/23. continue post op care. -- SUBJECTIVE -- HPI: This 67-year-old gentleman has a past medical history significant for insulin-dependent diabetes with neuropathy, CVA, hypertension, hyperlipidemia and AV fistula repair in the neck. The patient has had complaints of progressive fatigue and tiredness and was recently admitted to an outside hospital with a viral illness/pneumonia. Troponin was found to be elevated and echocardiogram showed dilated cardiomyopathy and wall motion abnormalities consistent with stress cardiomyopathy or disease. The patient was admitted for selective coronary angiogram by Dr. Katya Cruz on 04/28/2023 to [facility]. It showed critical distal left main disease involving the origin of the left anterior descending, 99%, distal left main 90%, ostium in origin of the left circumflex 90% and a big ramus intermedius with 99% stenosis, first obtuse marginal is small with 80% focal disease, left ventricular ejection fraction 50-55% with anteroapical hypokinesis and end-diastolic pressure of 25. With these critical findings, the patient was transferred to the [facility] for consideration of urgent CABG by Dr. Wilfrido Gray. PATIENT NARRATIVE: 04/29: No acute events overnight. No chest pain or shortness of breath. Therapeutic PTT on heparin. Plans for CABG with Dr. Wilfrido Gray week of 05/02. CT shows: Bandlike scarring versus subsegmental atelectasis at the bilateral lower lobes. Coronary artery calcifications are noted. No cardiomegaly. -Carotid Dopplers negative for any hemodynamically significant lesion. Vein mapping done. 04/30: on heparin infusion, PTT therapeutic. last dose of clopidogrel 04/25; Intermittent chest pain. Blood sugars not well-controlled, I have optimized the regimen. for CABG 05/[address] Wilfrido Gray. 05/01: 2D echo shows Left ventricle: The cavity size is normal. Wall thickness is mildly increased. Systolic function is normal. The estimated ejection fraction is 50-54%. Wall motion is normal; there are no regional wall motion abnormalities. Doppler parameters are consistent with restrictive physiology, indicative of decreased left ventricular diastolic compliance and/or increased left atrial pressure. Left atrium: The atrium is mildly dilated. -Intermittent chest pain and shortness of breath In good spirits otherwise. Looking forward to CABG 05/03/[address] Wilfrido Gray. 05/02: No acute events overnight. Some chest discomfort and shortness of breath. Blood sugars could be better. insulin dose adjusted. On heparin infusion, PTT is therapeutic. For CABG 05/[address] Wilfrido Gray. 05/03: the patient underwent Urgent CABG X 2 using cardiopulmonary bypass Left internal mammary artery bypass to the left anterior descending and first diagonal coronary arteries (sequential graft) Reversed saphenous vein graft to the ramus intermedius coronary artery by Dr Wilfrido Gray 05/03/23. Normal biv function pre and intra-op and easy intubation per anesthesia. Intra-op I/O: Crystalloid 2200 ml, CS 225 ml; EBL 750 ml, UO [address] 05/04: extubated POD 0. Medications adjusted, discontinue nifedipine and hydrochlorothiazide. Optimize beta-blockers and ARB. On 2 L of oxygen via nasal cannula. Walked about 200 feet with physical therapy. -REVIEW OF SYSTEMS- GENERAL: as above -- OBJECTIVE -- VITALS (05/03 13:17 - 05/04 13:17): Temperature F: 97.0 (97.0 - 99.0) Temperature source: Axillary Pulse Rate 73 (57 - 93) Respiratory rate: 23 (11 - 33) Blood pressure: 121/46 (99/35 - 159/67) Blood pressure source: Arterial I/Os (05/03 07:00 - 05/04 07:00): Net 401.20 Intake 2,256.20 Output 1,855 -EXAM- GENERAL: GENERAL: Elderly male, NAD. VITAL SIGNS: Weight is 78.2 kilograms. Body mass index 27. HEENT: Head is atraumatic. Pupils are reactive to light and accommodation. Extraocular muscles intact. NECK: Supple. No thyromegaly. No JVD. CARDIOVASCULAR: Regular rate and rhythm. CHEST: sternotomy. 2 CTs. LUNGS: Clear to auscultation. ABDOMEN: Soft, nontender. EXTREMITIES: No edema, cyanosis or clubbing. Pedal pulses palpable. NEUROLOGIC: No focal deficit. -- DATA -- MEDICATIONS CALCIUM GLUC IN NACL, ISO-OSM 2 GM IV ASDIR PRN LACTULOSE 30 ML PO ASDIR PRN clopidogreL 75 MG PO DAILY CYANOCOBALAMIN 500 MCG PO DAILY EPINEPHrine HCL/D5W 4 MG IV ASDIR niCARdipine HCL with/in SODIUM CHLORIDE 100 mL BAG 25 MG IV TITRATE POTASSIUM CHLORIDE 20 MEQ PO ASDIR PRN MAGNESIUM 1 GM IV ASDIR PRN ELECTROLYTE-A SOLUTION 1000 ML IV .Q24H traMADol HCL 50 MG PO Q6HR FERROUS SULFATE 325 MG PO DAILY DEXTROSE 50%-WATER 25 ML IV ASDIR PRN POTASSIUM CHLORIDE IN WATER 10 MEQ IV ASDIR (PRN) carvediloL 25 MG PO BID MEALS SOD BIPHOS/POT PHOSPHATE 2 PKT PO ASDIR PRN MAGNESIUM SULFATE 2 GM IV ASDIR (PRN) GLUCAGON 1 MG IM ASDIR PRN DEXTROSE 50%-WATER 25 ML IV ASDIR PRN ACETAMINOPHEN 650 MG PO Q6HR bisacodyL 10 MG RECTAL ASDIR PRN ACETAMINOPHEN 650 MG PO Q4H PRN POTASSIUM CHLORIDE 20 MEQ IV ASDIR (PRN) polyethylene glycoL 3350 1 PKT PO DAILY ACETAMINOPHEN 650 MG RECTAL Q4H PRN MAGNESIUM SULFATE 4 G IV ASDIR (PRN) hydrALAZINE HCL 10 MG IV Q6HR PRN FINASTERIDE 5 MG PO BEDTIME (Held) SPIRONOLACTONE 25 MG PO DAILY LOSARTAN POTASSIUM 50 MG PO DAILY (Held) INSULIN GLARGINE 25 UNITS SUBQ 0800 GLUCAGON 1 MG IM ASDIR PRN MAGNESIUM HYDROXIDE 30 ML PO ASDIR PRN SODIUM PHOSPHATE with/in SODIUM CHLORIDE 0.9% 20 MM IV ASDIR (PRN) ATORVASTATIN CALCIUM 80 MG PO BEDTIME ALBUTEROL SULFATE 2.5 MG NEB RTQ6H PRN SENNOSIDES 2 TAB PO ASDIR PRN ONDANSETRON 4 MG PO Q6H PRN POTASSIUM CHLORIDE 20 MEQ PO ASDIR PRN LACTULOSE 30 ML PO ASDIR PRN MUPIROCIN 1 APPLIC NASAL BID SODIUM BICARBONATE 8.4% 50 MEQ IV .ONCE PRN SODIUM PHOSPHATE with/in SODIUM CHLORIDE 0.9% 30 MM IV ASDIR (PRN) HYDROmorphone HCL 0.5 MG IV Q4H PRN ASPIRIN 81 MG PO DAILY DOCUSATE SODIUM 200 MG PO DAILY INSULIN LISPRO 5 UNITS SUBQ C MEALS SODIUM CHLORIDE 10 mL 10 ML IV ASDIR ONDANSETRON HCL/PF 4 MG IV Q6H PRN INSULIN LISPRO 0 UNITS SUBQ C MEALS HS FUROSEMIDE 20 MG IV DAILY NITROGLYCERIN 0.4 MG SL Q5M PRN TAMSULOSIN 0.4 MG PO BEDTIME INSULIN LISPRO HIGH DOSE SS SUBQ AC HS LABS GLU BED (05/04/23 11:34) GLUBED 152 H GLU BED (05/04/23 07:28) GLUBED 153 H LIVER FUNCTION PANEL (05/04/23 03:15) TOTAL PROTEIN 4.8 L ALBUMIN 3.2 BILIRUBIN TOTAL 0.9 BILIRUBIN DIRECT 0.4 H SGOT/AST 69 H SGPT/ALT 41 ALKALINE PHOSPHATASE 58.0 MAG (05/04/23 03:15) MAGNESIUM 2.6 CBC W/AUTO DIFF (05/04/23 03:15) WHITE BLOOD CELL 22.6H H RED BLOOD CELL 3.86 L HEMOGLOBIN 10.5L L HEMATOCRIT 30.8L L MEAN CELL VOLUME 79.8 L MEAN CELL HGB 27.2 MEAN CELL HGB CONCENTRATION 34.1 RED CELL DISTRIBUTION WIDTH 13.3 PLATELET COUNT 239 MEAN PLATELET VOLUME 9.5 NEUTROPHIL % 85.6 H LYMPHOCYTE % 5.2 L MONOCYTE % 8.1 EOSINOPHIL % 0.0 BASOPHIL % 0.2 NEUTROPHIL # 19.31 H LYMPHOCYTE # 1.17 MONOCYTE # 1.84 H EOSINOPHIL # 0.01 BASOPHIL # 0.04 PHOS (05/04/23 03:15) PHOSPHOROUS 3.7 BASIC METABOLIC PANEL (05/04/23 03:15) SODIUM 138 POTASSIUM 4.2 CHLORIDE 108H H CARBON DIOXIDE 21 GLUCOSE 109H H BLOOD UREA NITROGEN 14 GLOMERULAR FILTRATION RATE >=60 max estimate CREATININE 0.50L L CALCIUM 7.8 L GLU BED (05/04/23 00:24) GLUBED 89 CBC W/AUTO DIFF (05/03/23 22:10) WHITE BLOOD CELL 19.1H H RED BLOOD CELL 3.82 L HEMOGLOBIN 10.4L L HEMATOCRIT 30.2L L MEAN CELL VOLUME 79.1 L MEAN CELL HGB 27.2 MEAN CELL HGB CONCENTRATION 34.4 RED CELL DISTRIBUTION WIDTH 13.1 PLATELET COUNT 232 MEAN PLATELET VOLUME 9.3 NEUTROPHIL % 86.1 H LYMPHOCYTE % 4.5 L MONOCYTE % 7.9 EOSINOPHIL % 0.1 BASOPHIL % 0.2 NEUTROPHIL # 16.47 H LYMPHOCYTE # 0.86 L MONOCYTE # 1.51 H EOSINOPHIL # 0.01 BASOPHIL # 0.03 PHOS (05/03/23 22:10) PHOSPHOROUS 3.1 MAG (05/03/23 22:10) MAGNESIUM 1.9 COMPREHENSIVE METABOLIC PANEL (05/03/23 22:10) SODIUM 139 POTASSIUM 3.9 CHLORIDE 109 H CARBON DIOXIDE 23 GLUCOSE 97 BLOOD UREA NITROGEN 10 GLOMERULAR FILTRATION RATE >=60 max estimate CREATININE 0.50 L TOTAL PROTEIN 5.2 L ALBUMIN 3.3 CALCIUM 7.8 L BILIRUBIN TOTAL 1.0 SGOT/AST 71 H SGPT/ALT 43 ALKALINE PHOSPHATASE 60.0 GLU BED (05/03/23 20:52) GLUBED 103 BLOOD GAS W/ELECTROLYTES (05/03/23 18:13) ARTERIAL BLOOD GAS PH 7.40 ARTERIAL BLOOD GAS PCO2 35.4 ARTERIAL BLOOD GAS PO2 120.8 H BICARBONATE TOTAL HCO3 21.3 L BASE EXCESS -3.0 L ABG O2 SATURATION 98.2 ARTERIAL FIO2 32.0 ABG VENT MODE NASAL CANNULA ALLENS TEST NOT APPLICABLE SODIUM (POC) 134 L POTASSIUM (POC) 3.98 CHLORIDE (ARTERIAL) 103 GLUCOSE 149 H IONIZED CALCIUM 1.19 POC LACTIC ACID 0.79 TOTAL HGB 11.5 L OXYHEMOGLOBIN 97.8 CARBOXYHEMOGLOBIN 0.4 METHEMOGLOBIN <0.8 HHb 1.8 TCO2 ARTERIAL 22.4 L BASIC METABOLIC PANEL (05/03/23 17:06) SODIUM 137 POTASSIUM 4.2 CHLORIDE 108H H CARBON DIOXIDE 24 GLUCOSE 179H H BLOOD UREA NITROGEN 14 GLOMERULAR FILTRATION RATE >=60 max estimate CREATININE 0.50L L CALCIUM 8.0 L MAG (05/03/23 17:06) MAGNESIUM 1.9 PHOS (05/03/23 17:06) PHOSPHOROUS 2.3 L BLOOD GAS W/ELECTROLYTES (05/03/23 17:05) ARTERIAL BLOOD GAS PH 7.42 ARTERIAL BLOOD GAS PCO2 35.1 ARTERIAL BLOOD GAS PO2 158.9 H BICARBONATE TOTAL HCO3 22.1 BASE EXCESS -1.9 ABG O2 SATURATION 98.7 ARTERIAL FIO2 40.0 ABG VENT MODE Ventilator ALLENS TEST NOT APPLICABLE SODIUM (POC) 133 L POTASSIUM (POC) 4.06 CHLORIDE (ARTERIAL) 103 GLUCOSE 178 H IONIZED CALCIUM 1.21 POC LACTIC ACID 1.00 TOTAL HGB 11.4 L OXYHEMOGLOBIN 98.4 H CARBOXYHEMOGLOBIN 0.0 METHEMOGLOBIN <0.8 HHb 1.3 TCO2 ARTERIAL 23.2 L BLOOD GAS W/ELECTROLYTES (05/03/23 16:07) ARTERIAL BLOOD GAS PH 7.46 H ARTERIAL BLOOD GAS PCO2 27.9 L ARTERIAL BLOOD GAS PO2 148.3 H BICARBONATE TOTAL HCO3 19.6 L BASE EXCESS -3.1 L ABG O2 SATURATION 98.6 ARTERIAL FIO2 40.0 ABG VENT MODE Ventilator ABG TEMPERATURE 36.1 ALLENS TEST NOT APPLICABLE SODIUM (POC) 133 L POTASSIUM (POC) 3.99 CHLORIDE (ARTERIAL) 104 GLUCOSE 189 H IONIZED CALCIUM 1.18 POC LACTIC ACID 0.95 TOTAL HGB 11.1 L OXYHEMOGLOBIN 98.0 CARBOXYHEMOGLOBIN 0.3 METHEMOGLOBIN <0.8 HHb 1.4 TCO2 ARTERIAL 20.4 L BLOOD GAS W/ELECTROLYTES (05/03/23 14:50) ARTERIAL BLOOD GAS PH 7.44 ARTERIAL BLOOD GAS PCO2 29.6 L ARTERIAL BLOOD GAS PO2 125.9 H BICARBONATE TOTAL HCO3 19.7 L BASE EXCESS -3.4 L ABG O2 SATURATION 98.2 ARTERIAL FIO2 60.0 ABG VENT MODE Ventilator ALLENS TEST NOT APPLICABLE SODIUM (POC) 131 L POTASSIUM (POC) 4.39 CHLORIDE (ARTERIAL) 103 GLUCOSE 210 H IONIZED CALCIUM 1.28 POC LACTIC ACID 0.92 TOTAL HGB 11.4 L OXYHEMOGLOBIN 97.6 CARBOXYHEMOGLOBIN 0.3 METHEMOGLOBIN <0.8 HHb 1.8 TCO2 ARTERIAL 20.7 L BLOOD GAS W/ELECTROLYTES (05/03/23 13:45) ARTERIAL BLOOD GAS PH 7.44 ARTERIAL BLOOD GAS PCO2 32.0 L ARTERIAL BLOOD GAS PO2 79.7 L BICARBONATE TOTAL HCO3 21.4 L BASE EXCESS -1.9 ABG O2 SATURATION 95.4 ARTERIAL FIO2 60.0 ABG VENT MODE Ventilator ALLENS TEST NOT APPLICABLE SODIUM (POC) 132 L POTASSIUM (POC) 4.41 CHLORIDE (ARTERIAL) 104 GLUCOSE 205 H IONIZED CALCIUM 1.17 POC LACTIC ACID 0.96 TOTAL HGB 11.7 D L OXYHEMOGLOBIN 94.9 CARBOXYHEMOGLOBIN 0.2 METHEMOGLOBIN <0.8 HHb 4.6 TCO2 ARTERIAL 22.4 L -- QUALITY -- -MEDICATIONS- - I attest that the foregoing medication list in the medical record is true, accurate, and complete to the best of my knowledge. -- ATTESTATION -- CARE ACTIVITIES / CARE COORDINATION: - I have reviewed the history and repeated the gupta elements - I have seen and examined this patient - I have reviewed the progress in the clinical course since the last examination - I have discussed the patient's condition with other members of the care team Signed in PatientKeeper by Rajesh Kilgore MD on 05/04/23 at 17:56 at 1756 ATTE NTION *EDITS and/or ADDENDA must be made in Patient Keeper for this note. * * Edits and ammendments created in [employer] are not visible * * in Patient Keeper or the legal medical record (HPF). * RPT #: [id number] END OF REPORT [facility] 2023-05-04 10:27:00 [facility] ([facility]) Intensive Care Progress Note REPORT #: [id number] REPORT STATUS: Signed DATE: 05/04/23 TIME: 1027 PATIENT: LUIS GUZMÁN UNIT #: [id number] ROOM #: [id number] BED: 1 : 55 AGE: 67 SEX: M ATTEND: Rajesh Kilgore MD ADM AUTHOR: Radha Tong APRN ATTE NTION *EDITS and/or ADDENDA must be made in Patient Keeper for this note. * * Edits and ammendments created in [employer] are not visible * * in Patient Keeper or the legal medical record (HPF). * -- CO-SIGNATURE -- COMMENTS: I have read and agree with Radha Tong's note as written. Critical Care: time spent apart from any procedure 45 minutes Ivelisse Gavin MD Critical Care Medicine Signed in PatientKeeper by IVELISSE GAVIN MD on 05/04/23 at 18:27 -- ASSESSMENT AND PLAN -- HOSPITAL COURSE TO DATE: The patient is a 67-year- man who has a past medical history of diabetes (on insulin, HgbA1c 8.2), hypertension, hyperlipidemia, CVA with residual left-sided weakness, AV fistula repair in the neck. Patient underwent a selective coronary angiogram on 04/28/2023 at [facility] demonstrating distal left main disease (90%), LAD (99%), ostial LCx (90%), big RI (99%), OM1 (small, 80%), LVEF 50-55%. He was transferred here for urgent bypass surgery with Dr. Wilfrido Gray. 05/03: Patient underwent CABG, WERNER to LAD, SVG to Ramus by Dr. Gray. Intra-op uneventful. Normal biv function pre and intra-op and easy intubation per anesthesia. Intra-op I/O: Crystalloid 2200 ml, CS 225 ml; EBL 750 ml, UO 750 ml. Patient is transferred to CVICU for ongoing post op management. GENERAL ASSESSMENT: ASSESSMENT/PLAN: Overall: ICU Management of patient s/p CABG x2, 05/03 NEURO: Acute encephalopathy- resolved Acute postoperative pain CVA with residual left-sided weakness - MM Pain regimen - PT/OT PULM: Acute respiratory insufficiency Atelectasis COVID positive- asymptomatic - ABG and CXR reviewed and acceptable - Extubated fast track to NV; weaned off and saturating well on RAO2 - Bayard IS for volume expansion CVS: MV CAD Hyperlipidemia Hx AV fistula repair in the neck Hypertension - S/p CABG x 2 - On DAPT; statin and BB - Resumed home losartan to help wean cardene infusion - CT management per CVS GI: Cardiac diet - GI ppx: Not indicated - Bowel regimen RENAL: BPH - Baseline creatinine 0.5 - Continue to monitor UOP, renal function and electrolytes - Replete electrolytes per protocol - Intermittent diuretics, resumed home Flomax - BMP, Mg daily HEM: Acute blood loss anemia - Stable and without need for transfusion - Continue to monitor CT output and for signs of bleeding - Trend coags; CBC daily ENDO: 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 (HgbA1c 8.2) - POCT AC/HS - SSI + lantus ID: Leukocytosis, likely reactive Afebrile COVID-19+ (asymptomatic) - Completed rogelio-op abx - Monitor for s/s of infection Code Status: Full code Disposition: ICU ICU CHECKLIST: Analgesia: Opioids Glycemic Control: Insulin Nutrition: Diet Ulcer Prophylaxis: PPI Chemical Thromboprophylaxis: Risk of bleeding outweighs risk of thrombosis Mechanical Thromboprophylaxis: SCD and Compression stockings Need for Central line: Yes, indications: medications requiring central venous access Need for Dumont catheter: Post-op surgery <24 hrs Medication reviewed with ICU pharmacist, 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 EYES: Negative for blurry vision. No diplopia. RESPIRATORY: Negative for dyspnea or wheeze. No cough. NEUROLOGICAL: Negative for headache. No vertigo. Denies paresthesias. -- OBJECTIVE -- VITALS (05/03 10:27 - 05/04 10:27): Temperature F: 97.0 (95.5 - 99.0) Temperature source: Axillary Pulse Rate 73 (57 - 93) Respiratory rate: 21 (11 - 33) Blood pressure: 112/58 (99/35 - 159/64) Blood pressure source: Arterial I/Os (05/03 07:00 - 05/04 07:00): Net 401.20 Intake 2,256.20 Output 1,855 -EXAM- GENERAL: Well developed, well nourished, in no apparent distress. HEAD: Normocephalic, atraumatic. EYES: PERRL, EOM intact, conjunctiva and sclera clear, without nystagmus, lids normal. MOUTH: Oropharynx without deformities or lesions, normal mucosa. LUNGS: Clear bilaterally with normal respiratory effort. HEART: Regular rate and rhythm, normal S1, S2, no murmurs, no rubs, no gallops, no clicks. EXTREMITIES: No clubbing, no cyanosis, no edema. INDWELLING DUMONT: Yes -- DATA -- MEDICATIONS CALCIUM GLUC IN NACL, ISO-OSM 2 GM IV ASDIR PRN LACTULOSE 30 ML PO ASDIR PRN clopidogreL 75 MG PO DAILY CYANOCOBALAMIN 500 MCG PO DAILY EPINEPHrine HCL/D5W 4 MG IV ASDIR niCARdipine HCL with/in SODIUM CHLORIDE 100 mL BAG 25 MG IV TITRATE POTASSIUM CHLORIDE 20 MEQ PO ASDIR PRN MAGNESIUM 1 GM IV ASDIR PRN ELECTROLYTE-A SOLUTION 1000 ML IV .Q24H traMADol HCL 50 MG PO Q6HR FERROUS SULFATE 325 MG PO DAILY DEXTROSE 50%-WATER 25 ML IV ASDIR PRN POTASSIUM CHLORIDE IN WATER 10 MEQ IV ASDIR (PRN) carvediloL 25 MG PO BID MEALS SOD BIPHOS/POT PHOSPHATE 2 PKT PO ASDIR PRN MAGNESIUM SULFATE 2 GM IV ASDIR (PRN) GLUCAGON 1 MG IM ASDIR PRN DEXTROSE 50%-WATER 25 ML IV ASDIR PRN ACETAMINOPHEN 650 MG PO Q6HR bisacodyL 10 MG RECTAL ASDIR PRN ACETAMINOPHEN 650 MG PO Q4H PRN POTASSIUM CHLORIDE 20 MEQ IV ASDIR (PRN) polyethylene glycoL 3350 1 PKT PO DAILY ACETAMINOPHEN 650 MG RECTAL Q4H PRN MAGNESIUM SULFATE 4 G IV ASDIR (PRN) hydrALAZINE HCL 10 MG IV Q6HR PRN FINASTERIDE 5 MG PO BEDTIME (Held) SPIRONOLACTONE 25 MG PO DAILY LOSARTAN POTASSIUM 50 MG PO DAILY (Held) INSULIN GLARGINE 25 UNITS SUBQ 0800 GLUCAGON 1 MG IM ASDIR PRN MAGNESIUM HYDROXIDE 30 ML PO ASDIR PRN SODIUM PHOSPHATE with/in SODIUM CHLORIDE 0.9% 20 MM IV ASDIR (PRN) ATORVASTATIN CALCIUM 80 MG PO BEDTIME ALBUTEROL SULFATE 2.5 MG NEB RTQ6H PRN SENNOSIDES 2 TAB PO ASDIR PRN ONDANSETRON 4 MG PO Q6H PRN POTASSIUM CHLORIDE 20 MEQ PO ASDIR PRN LACTULOSE 30 ML PO ASDIR PRN MUPIROCIN 1 APPLIC NASAL BID SODIUM BICARBONATE 8.4% 50 MEQ IV .ONCE PRN SODIUM PHOSPHATE with/in SODIUM CHLORIDE 0.9% 30 MM IV ASDIR (PRN) HYDROmorphone HCL 0.5 MG IV Q4H PRN ASPIRIN 81 MG PO DAILY DOCUSATE SODIUM 200 MG PO DAILY INSULIN LISPRO 5 UNITS SUBQ C MEALS SODIUM CHLORIDE 10 mL 10 ML IV ASDIR INSULIN REG HUMAN REC with/in SODIUM CHLORIDE 100 mL BAG 100 UNIT IV ASDIR ONDANSETRON HCL/PF 4 MG IV Q6H PRN INSULIN LISPRO 0 UNITS SUBQ C MEALS HS NITROGLYCERIN 0.4 MG SL Q5M PRN TAMSULOSIN 0.4 MG PO BEDTIME LABS GLU BED (05/04/23 07:28) GLUBED 153 H LIVER FUNCTION PANEL (05/04/23 03:15) TOTAL PROTEIN 4.8 L ALBUMIN 3.2 BILIRUBIN TOTAL 0.9 BILIRUBIN DIRECT 0.4 H SGOT/AST 69 H SGPT/ALT 41 ALKALINE PHOSPHATASE 58.0 MAG (05/04/23 03:15) MAGNESIUM 2.6 CBC W/AUTO DIFF (05/04/23 03:15) WHITE BLOOD CELL 22.6H H RED BLOOD CELL 3.86 L HEMOGLOBIN 10.5L L HEMATOCRIT 30.8L L MEAN CELL VOLUME 79.8 L MEAN CELL HGB 27.2 MEAN CELL HGB CONCENTRATION 34.1 RED CELL DISTRIBUTION WIDTH 13.3 PLATELET COUNT 239 MEAN PLATELET VOLUME 9.5 NEUTROPHIL % 85.6 H LYMPHOCYTE % 5.2 L MONOCYTE % 8.1 EOSINOPHIL % 0.0 BASOPHIL % 0.2 NEUTROPHIL # 19.31 H LYMPHOCYTE # 1.17 MONOCYTE # 1.84 H EOSINOPHIL # 0.01 BASOPHIL # 0.04 PHOS (05/04/23 03:15) PHOSPHOROUS 3.7 BASIC METABOLIC PANEL (05/04/23 03:15) SODIUM 138 POTASSIUM 4.2 CHLORIDE 108H H CARBON DIOXIDE 21 GLUCOSE 109H H BLOOD UREA NITROGEN 14 GLOMERULAR FILTRATION RATE >=60 max estimate CREATININE 0.50L L CALCIUM 7.8 L GLU BED (05/04/23 00:24) GLUBED 89 MAG (05/03/23 22:10) MAGNESIUM 1.9 CBC W/AUTO DIFF (05/03/23 22:10) WHITE BLOOD CELL 19.1H H RED BLOOD CELL 3.82 L HEMOGLOBIN 10.4L L HEMATOCRIT 30.2L L MEAN CELL VOLUME 79.1 L MEAN CELL HGB 27.2 MEAN CELL HGB CONCENTRATION 34.4 RED CELL DISTRIBUTION WIDTH 13.1 PLATELET COUNT 232 MEAN PLATELET VOLUME 9.3 NEUTROPHIL % 86.1 H LYMPHOCYTE % 4.5 L MONOCYTE % 7.9 EOSINOPHIL % 0.1 BASOPHIL % 0.2 NEUTROPHIL # 16.47 H LYMPHOCYTE # 0.86 L MONOCYTE # 1.51 H EOSINOPHIL # 0.01 BASOPHIL # 0.03 PHOS (05/03/23 22:10) PHOSPHOROUS 3.1 COMPREHENSIVE METABOLIC PANEL (05/03/23 22:10) SODIUM 139 POTASSIUM 3.9 CHLORIDE 109 H CARBON DIOXIDE 23 GLUCOSE 97 BLOOD UREA NITROGEN 10 GLOMERULAR FILTRATION RATE >=60 max estimate CREATININE 0.50 L TOTAL PROTEIN 5.2 L ALBUMIN 3.3 CALCIUM 7.8 L BILIRUBIN TOTAL 1.0 SGOT/AST 71 H SGPT/ALT 43 ALKALINE PHOSPHATASE 60.0 GLU BED (05/03/23 20:52) GLUBED 103 BLOOD GAS W/ELECTROLYTES (05/03/23 18:13) ARTERIAL BLOOD GAS PH 7.40 ARTERIAL BLOOD GAS PCO2 35.4 ARTERIAL BLOOD GAS PO2 120.8 H BICARBONATE TOTAL HCO3 21.3 L BASE EXCESS -3.0 L ABG O2 SATURATION 98.2 ARTERIAL FIO2 32.0 ABG VENT MODE NASAL CANNULA ALLENS TEST NOT APPLICABLE SODIUM (POC) 134 L POTASSIUM (POC) 3.98 CHLORIDE (ARTERIAL) 103 GLUCOSE 149 H IONIZED CALCIUM 1.19 POC LACTIC ACID 0.79 TOTAL HGB 11.5 L OXYHEMOGLOBIN 97.8 CARBOXYHEMOGLOBIN 0.4 METHEMOGLOBIN <0.8 HHb 1.8 TCO2 ARTERIAL 22.4 L BASIC METABOLIC PANEL (05/03/23 17:06) SODIUM 137 POTASSIUM 4.2 CHLORIDE 108H H CARBON DIOXIDE 24 GLUCOSE 179H H BLOOD UREA NITROGEN 14 GLOMERULAR FILTRATION RATE >=60 max estimate CREATININE 0.50L L CALCIUM 8.0 L MAG (05/03/23 17:06) MAGNESIUM 1.9 PHOS (05/03/23 17:06) PHOSPHOROUS 2.3 L BLOOD GAS W/ELECTROLYTES (05/03/23 17:05) ARTERIAL BLOOD GAS PH 7.42 ARTERIAL BLOOD GAS PCO2 35.1 ARTERIAL BLOOD GAS PO2 158.9 H BICARBONATE TOTAL HCO3 22.1 BASE EXCESS -1.9 ABG O2 SATURATION 98.7 ARTERIAL FIO2 40.0 ABG VENT MODE Ventilator ALLENS TEST NOT APPLICABLE SODIUM (POC) 133 L POTASSIUM (POC) 4.06 CHLORIDE (ARTERIAL) 103 GLUCOSE 178 H IONIZED CALCIUM 1.21 POC LACTIC ACID 1.00 TOTAL HGB 11.4 L OXYHEMOGLOBIN 98.4 H CARBOXYHEMOGLOBIN 0.0 METHEMOGLOBIN <0.8 HHb 1.3 TCO2 ARTERIAL 23.2 L BLOOD GAS W/ELECTROLYTES (05/03/23 16:07) ARTERIAL BLOOD GAS PH 7.46 H ARTERIAL BLOOD GAS PCO2 27.9 L ARTERIAL BLOOD GAS PO2 148.3 H BICARBONATE TOTAL HCO3 19.6 L BASE EXCESS -3.1 L ABG O2 SATURATION 98.6 ARTERIAL FIO2 40.0 ABG VENT MODE Ventilator ABG TEMPERATURE 36.1 ALLENS TEST NOT APPLICABLE SODIUM (POC) 133 L POTASSIUM (POC) 3.99 CHLORIDE (ARTERIAL) 104 GLUCOSE 189 H IONIZED CALCIUM 1.18 POC LACTIC ACID 0.95 TOTAL HGB 11.1 L OXYHEMOGLOBIN 98.0 CARBOXYHEMOGLOBIN 0.3 METHEMOGLOBIN <0.8 HHb 1.4 TCO2 ARTERIAL 20.4 L BLOOD GAS W/ELECTROLYTES (05/03/23 14:50) ARTERIAL BLOOD GAS PH 7.44 ARTERIAL BLOOD GAS PCO2 29.6 L ARTERIAL BLOOD GAS PO2 125.9 H BICARBONATE TOTAL HCO3 19.7 L BASE EXCESS -3.4 L ABG O2 SATURATION 98.2 ARTERIAL FIO2 60.0 ABG VENT MODE Ventilator ALLENS TEST NOT APPLICABLE SODIUM (POC) 131 L POTASSIUM (POC) 4.39 CHLORIDE (ARTERIAL) 103 GLUCOSE 210 H IONIZED CALCIUM 1.28 POC LACTIC ACID 0.92 TOTAL HGB 11.4 L OXYHEMOGLOBIN 97.6 CARBOXYHEMOGLOBIN 0.3 METHEMOGLOBIN <0.8 HHb 1.8 TCO2 ARTERIAL 20.7 L BLOOD GAS W/ELECTROLYTES (05/03/23 13:45) ARTERIAL BLOOD GAS PH 7.44 ARTERIAL BLOOD GAS PCO2 32.0 L ARTERIAL BLOOD GAS PO2 79.7 L BICARBONATE TOTAL HCO3 21.4 L BASE EXCESS -1.9 ABG O2 SATURATION 95.4 ARTERIAL FIO2 60.0 ABG VENT MODE Ventilator ALLENS TEST NOT APPLICABLE SODIUM (POC) 132 L POTASSIUM (POC) 4.41 CHLORIDE (ARTERIAL) 104 GLUCOSE 205 H IONIZED CALCIUM 1.17 POC LACTIC ACID 0.96 TOTAL HGB 11.7 D L OXYHEMOGLOBIN 94.9 CARBOXYHEMOGLOBIN 0.2 METHEMOGLOBIN <0.8 HHb 4.6 TCO2 ARTERIAL 22.4 L BLOOD GAS W/ELECTROLYTES (05/03/23 12:52) ARTERIAL BLOOD GAS PH 7.43 ARTERIAL BLOOD GAS PCO2 33.9 L ARTERIAL BLOOD GAS PO2 101.2 H BICARBONATE TOTAL HCO3 22.1 BASE EXCESS -1.6 ABG O2 SATURATION 97.3 ARTERIAL FIO2 60.0 ABG VENT MODE Ventilator ALLENS TEST NOT APPLICABLE SODIUM (POC) 133 L POTASSIUM (POC) 4.47 CHLORIDE (ARTERIAL) 105 GLUCOSE 193 H IONIZED CALCIUM 1.17 POC LACTIC ACID 0.92 TOTAL HGB 11.0 L OXYHEMOGLOBIN 96.9 CARBOXYHEMOGLOBIN 0.1 METHEMOGLOBIN <0.8 HHb 2.7 TCO2 ARTERIAL 23.2 L PROTHROMBIN TIME (05/03/23 12:49) PROTHROMBIN TIME PATIENT 15.7 H INTERNATIONAL NORMAL RATIO 1.42 H CBC W/AUTO DIFF (05/03/23 12:49) WHITE BLOOD CELL 21.3H H RED BLOOD CELL 3.74 L HEMOGLOBIN 10.2D L D L HEMATOCRIT 29.4L L MEAN CELL VOLUME 78.6 L MEAN CELL HGB 27.3 MEAN CELL HGB CONCENTRATION 34.7 RED CELL DISTRIBUTION WIDTH 12.9 PLATELET COUNT 191 MEAN PLATELET VOLUME 9.8 NEUTROPHIL % 83.8 H LYMPHOCYTE % 7.4 L MONOCYTE % 6.3 EOSINOPHIL % 0.6 BASOPHIL % 0.3 NEUTROPHIL # 17.88 H LYMPHOCYTE # 1.58 MONOCYTE # 1.34 H EOSINOPHIL # 0.12 BASOPHIL # 0.07 MAG (05/03/23 12:49) MAGNESIUM 1.8 PHOS (05/03/23 12:49) PHOSPHOROUS 2.1 L BASIC METABOLIC PANEL (05/03/23 12:49) SODIUM 139 POTASSIUM 4.6 CHLORIDE 109H H CARBON DIOXIDE 24 GLUCOSE 195H H BLOOD UREA NITROGEN 13 GLOMERULAR FILTRATION RATE >=60 max estimate CREATININE 0.50L L CALCIUM 7.4 D L PTT (05/03/23 12:49) THROMBOPLASTIN TIME PARTIAL 30.8 D LACTIC ACID (05/03/23 12:49) LACTIC ACID 0.70 ACT (05/03/23 11:35) COAGULATION TIME ACTIVATED 142 H ACT (05/03/23 11:13) COAGULATION TIME ACTIVATED 482 H ACT (05/03/23 10:44) COAGULATION TIME ACTIVATED 650 H Signed in PatientKeeper by Radha Tong APRN on 05/04/23 at 18:18 Cosigned by IVELISSE GAVIN MD on 05/04/23 at 18:27 at 1827 at 1827 ATTE NTION *EDITS and/or ADDENDA must be made in Patient Keeper for this note. * * Edits and ammendments created in [facility] are not visible * * in Patient Keeper or the legal medical record (HPF). * RPT #: [id number] END OF REPORT [facility] 2023-05-04 09:40:00 [facility] ([facility]) Cardiology Progress Notes REPORT #: [id number] REPORT STATUS: Signed DATE: 05/04/23 TIME: 939 PATIENT: LUIS GUZMÁN UNIT #: [id number] ROOM #: [id number] BED: A : 55 AGE: 67 SEX: M ATTEND: Rajesh Kilgore MD ADM AUTHOR: Andres Patel MD CF1 ATTE NTION *EDITS and/or ADDENDA must be made in Patient Keeper for this note. * * Edits and ammendments created in [employer] are not visible * * in Patient Keeper or the legal medical record (HPF). * -- CO-SIGNATURE -- COMMENTS: The patient was seen on rounds with Andres Patle MD The patient has no complaints Examination demonstrates normal heart sounds and clear lung mcmanus. Impression and plan The patient is a 67-year-old gentleman with a history of hypertension, hypertension lipidemia, diabetes mellitus who is now status post two-vessel bypass surgery. Continue dual antiplatelet therapy, statin and try low-dose beta-blockade. Continue occupational and physical therapy. Ambulate the patient. Signed in PatientKeeper by JUAN M WEI MD on 05/08/23 at 09:59 -- ASSESSMENT AND PLAN -- HOSPITAL COURSE TO DATE: 05/03/2023: S/P 2 Vessel CAB WERNER to LAD and Left Great Saphenous vein to Ramus Intermedius. 05/04/2023" PVC burden was due to the external pacemaker, murmurs present, ECHO to follow. GENERAL ASSESSMENT: Mr. Guzmán is a 67 YO gentleman with PMH of HTN, DM, HLD, who underwent a selective coronary angiogram on 04/28/2023 at [facility] demonstrating distal left main disease (90%), LAD (99%), ostial LCx (90%), big RI (99%), OM1 (small, 80%), LVEF 50-55%, currently s/p 2 vessels Bypass with WERNER to LAD and Saphenous vein graft to RI. The patient is sitting in chair in no distress. PROBLEMS: 1: Coronary artery disease A/P: Mr. Guzmán is a 67-year-old gentleman who is referred by Dr. Katya Cruz and who was having worsening symptoms of fatigue and possibly chest discomfort, underwent a selective coronary angiogram on 04/28/2023 at [facility] demonstrating distal left main disease (90%), LAD (99%), ostial LCx (90%), big RI (99%), OM1 (small, 80%), ECHO with LVEF 50-55%, and restrictive physiology with diastolic dysfunction. He was transferred here for urgent bypass surgery with Dr. Wilfrido Gray. # S/P CABG x 2, WERNER to LAD and SVG to RI. - Hemodynamically stable, not on any inotropic support or pressor. - Continue Aspirin 81 mg po daily, Atorvastatin 80mg daily, Carvedilol 25mg BID -Initiate Plavix 75 mg post CABG. 2: S/P CABG x 2 A/P: On 05/03/2023, WERNER to LAD , SVG to RI 2 Chest Tubes present Pacer wires and bed side external pacemaker present. CV Surgery following the patient. 3: Hypertension A/P: Pt has a long history of HTN, has been on polypharmacy. We are going to adjust the medications by uptitrating the Coreg dose, ARB and holding off Nifedipine and HCTZ. 4: Murmur A/P: Patient has a heart murmur best heart at left parasternal area, radiation towards the apex, Will follow on the ECHO. -- SUBJECTIVE -- CHIEF COMPLAINT: Pt extubated yesterday, HPI: Mr. 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 Katya Cruz and who was having worsening symptoms of fatigue and chest discomfort. He underwent a selective coronary angiogram on 04/28/2023 at [facility] demonstrating distal left main disease (90%), LAD (99%), ostial LCx (90%), big RI (99%), OM1 (small, 80%), LVEF 50-55%. He was transferred here for urgent bypass surgery with Dr. Wilfrido Gray. He underwent 2 Vessel CAB yesterday. Currently the patient is stable, extubated yesterday, -REVIEW OF SYSTEMS- GENERAL: Negative for fever, malaise, fatigue. EARS/NOSE/THROAT: Negative for sore throat. No otalgia. No rhinorrhea. RESPIRATORY: Negative for dyspnea or wheeze. No cough. CARDIOVASCULAR: Negative for chest pain or palpitations. No extremity swelling. GASTROINTESTINAL: Negative for abdominal pain or nausea. No emesis. No diarrhea. GENITOURINARY: Negative for dysuria, frequency, or urgency. No gross hematuria. MUSCULOSKELETAL: Negative for joint stiffness, pain, or arthralgias. SKIN: Negative for rashes. No pruritus. NEUROLOGICAL: Negative for headache. No vertigo. Denies paresthesias. PSYCHIATRIC: Negative for specific complaints. -- OBJECTIVE -- VITALS (05/03 09:40 - 05/04 09:40): Temperature F: 97.0 (95.5 - 99.0) Temperature source: Axillary Pulse Rate 73 (57 - 93) Respiratory rate: 21 (11 - 33) Blood pressure: 112/58 (99/35 - 159/64) Blood pressure source: Arterial I/Os (05/03 07:00 - 05/04 07:00): Net 401.20 Intake 2,256.20 Output 1,855 -EXAM- GENERAL: Well developed, well nourished, in no apparent distress. HEAD: Normocephalic, atraumatic. NECK: No masses, no thyromegaly, no abnormal cervical nodes, trachea midline. CHEST: Grossly normal appearance. Mid sternotomy wound clean, dry and intact. LUNGS: Clear bilaterally with normal respiratory effort. HEART: Regular rate and rhythm, normal S1, S2, Quiros systolic murmur best heart at apex, left parasternal area, no rubs, no gallops, no clicks. ABDOMEN: Soft, non-tender, no organomegaly, no masses noted. MUSCULOSKELETAL: No deformity, no scoliosis noted of thoracic or lumbar spine, joint ROM grossly normal, normal gait and station. EXTREMITIES: No clubbing, no cyanosis, no edema. NEUROLOGICAL: No focal deficits, cranial nerves II-XII grossly intact, normal sensation, normal reflexes, normal coordination, normal muscle strength, normal tone. PULSES: Pulses normal in all extremities. -- DATA -- MEDICATIONS CALCIUM GLUC IN NACL, ISO-OSM 2 GM IV ASDIR PRN LACTULOSE 30 ML PO ASDIR PRN clopidogreL 75 MG PO DAILY CYANOCOBALAMIN 500 MCG PO DAILY EPINEPHrine HCL/D5W 4 MG IV ASDIR niCARdipine HCL with/in SODIUM CHLORIDE 100 mL BAG 25 MG IV TITRATE POTASSIUM CHLORIDE 20 MEQ PO ASDIR PRN MAGNESIUM 1 GM IV ASDIR PRN ELECTROLYTE-A SOLUTION 1000 ML IV .Q24H traMADol HCL 50 MG PO Q6HR FERROUS SULFATE 325 MG PO DAILY DEXTROSE 50%-WATER 25 ML IV ASDIR PRN POTASSIUM CHLORIDE IN WATER 10 MEQ IV ASDIR (PRN) carvediloL 25 MG PO BID MEALS SOD BIPHOS/POT PHOSPHATE 2 PKT PO ASDIR PRN MAGNESIUM SULFATE 2 GM IV ASDIR (PRN) GLUCAGON 1 MG IM ASDIR PRN DEXTROSE 50%-WATER 25 ML IV ASDIR PRN ACETAMINOPHEN 650 MG PO Q6HR bisacodyL 10 MG RECTAL ASDIR PRN ACETAMINOPHEN 650 MG PO Q4H PRN POTASSIUM CHLORIDE 20 MEQ IV ASDIR (PRN) polyethylene glycoL 3350 1 PKT PO DAILY ACETAMINOPHEN 650 MG RECTAL Q4H PRN MAGNESIUM SULFATE 4 G IV ASDIR (PRN) hydrALAZINE HCL 10 MG IV Q6HR PRN FINASTERIDE 5 MG PO BEDTIME (Held) SPIRONOLACTONE 25 MG PO DAILY (Held) INSULIN GLARGINE 25 UNITS SUBQ 0800 GLUCAGON 1 MG IM ASDIR PRN MAGNESIUM HYDROXIDE 30 ML PO ASDIR PRN SODIUM PHOSPHATE with/in SODIUM CHLORIDE 0.9% 20 MM IV ASDIR (PRN) ATORVASTATIN CALCIUM 80 MG PO BEDTIME ALBUTEROL SULFATE 2.5 MG NEB RTQ6H PRN SENNOSIDES 2 TAB PO ASDIR PRN ONDANSETRON 4 MG PO Q6H PRN POTASSIUM CHLORIDE 20 MEQ PO ASDIR PRN LACTULOSE 30 ML PO ASDIR PRN MUPIROCIN 1 APPLIC NASAL BID SODIUM BICARBONATE 8.4% 50 MEQ IV .ONCE PRN SODIUM PHOSPHATE with/in SODIUM CHLORIDE 0.9% 30 MM IV ASDIR (PRN) HYDROmorphone HCL 0.5 MG IV Q4H PRN ASPIRIN 81 MG PO DAILY DOCUSATE SODIUM 200 MG PO DAILY INSULIN LISPRO 5 UNITS SUBQ C MEALS SODIUM CHLORIDE 10 mL 10 ML IV ASDIR INSULIN REG HUMAN REC with/in SODIUM CHLORIDE 100 mL BAG 100 UNIT IV ASDIR ONDANSETRON HCL/PF 4 MG IV Q6H PRN INSULIN LISPRO 0 UNITS SUBQ C MEALS HS NITROGLYCERIN 0.4 MG SL Q5M PRN TAMSULOSIN 0.4 MG PO BEDTIME LABS GLU BED (05/04/23 07:28) GLUBED 153 H LIVER FUNCTION PANEL (05/04/23 03:15) TOTAL PROTEIN 4.8 L ALBUMIN 3.2 BILIRUBIN TOTAL 0.9 BILIRUBIN DIRECT 0.4 H SGOT/AST 69 H SGPT/ALT 41 ALKALINE PHOSPHATASE 58.0 MAG (05/04/23 03:15) MAGNESIUM 2.6 CBC W/AUTO DIFF (05/04/23 03:15) WHITE BLOOD CELL 22.6H H RED BLOOD CELL 3.86 L HEMOGLOBIN 10.5L L HEMATOCRIT 30.8L L MEAN CELL VOLUME 79.8 L MEAN CELL HGB 27.2 MEAN CELL HGB CONCENTRATION 34.1 RED CELL DISTRIBUTION WIDTH 13.3 PLATELET COUNT 239 MEAN PLATELET VOLUME 9.5 NEUTROPHIL % 85.6 H LYMPHOCYTE % 5.2 L MONOCYTE % 8.1 EOSINOPHIL % 0.0 BASOPHIL % 0.2 NEUTROPHIL # 19.31 H LYMPHOCYTE # 1.17 MONOCYTE # 1.84 H EOSINOPHIL # 0.01 BASOPHIL # 0.04 PHOS (05/04/23 03:15) PHOSPHOROUS 3.7 BASIC METABOLIC PANEL (05/04/23 03:15) SODIUM 138 POTASSIUM 4.2 CHLORIDE 108H H CARBON DIOXIDE 21 GLUCOSE 109H H BLOOD UREA NITROGEN 14 GLOMERULAR FILTRATION RATE >=60 max estimate CREATININE 0.50L L CALCIUM 7.8 L GLU BED (05/04/23 00:24) GLUBED 89 MAG (05/03/23 22:10) MAGNESIUM 1.9 CBC W/AUTO DIFF (05/03/23 22:10) WHITE BLOOD CELL 19.1H H RED BLOOD CELL 3.82 L HEMOGLOBIN 10.4L L HEMATOCRIT 30.2L L MEAN CELL VOLUME 79.1 L MEAN CELL HGB 27.2 MEAN CELL HGB CONCENTRATION 34.4 RED CELL DISTRIBUTION WIDTH 13.1 PLATELET COUNT 232 MEAN PLATELET VOLUME 9.3 NEUTROPHIL % 86.1 H LYMPHOCYTE % 4.5 L MONOCYTE % 7.9 EOSINOPHIL % 0.1 BASOPHIL % 0.2 NEUTROPHIL # 16.47 H LYMPHOCYTE # 0.86 L MONOCYTE # 1.51 H EOSINOPHIL # 0.01 BASOPHIL # 0.03 PHOS (05/03/23 22:10) PHOSPHOROUS 3.1 COMPREHENSIVE METABOLIC PANEL (05/03/23 22:10) SODIUM 139 POTASSIUM 3.9 CHLORIDE 109 H CARBON DIOXIDE 23 GLUCOSE 97 BLOOD UREA NITROGEN 10 GLOMERULAR FILTRATION RATE >=60 max estimate CREATININE 0.50 L TOTAL PROTEIN 5.2 L ALBUMIN 3.3 CALCIUM 7.8 L BILIRUBIN TOTAL 1.0 SGOT/AST 71 H SGPT/ALT 43 ALKALINE PHOSPHATASE 60.0 GLU BED (05/03/23 20:52) GLUBED 103 BLOOD GAS W/ELECTROLYTES (05/03/23 18:13) ARTERIAL BLOOD GAS PH 7.40 ARTERIAL BLOOD GAS PCO2 35.4 ARTERIAL BLOOD GAS PO2 120.8 H BICARBONATE TOTAL HCO3 21.3 L BASE EXCESS -3.0 L ABG O2 SATURATION 98.2 ARTERIAL FIO2 32.0 ABG VENT MODE NASAL CANNULA ALLENS TEST NOT APPLICABLE SODIUM (POC) 134 L POTASSIUM (POC) 3.98 CHLORIDE (ARTERIAL) 103 GLUCOSE 149 H IONIZED CALCIUM 1.19 POC LACTIC ACID 0.79 TOTAL HGB 11.5 L OXYHEMOGLOBIN 97.8 CARBOXYHEMOGLOBIN 0.4 METHEMOGLOBIN <0.8 HHb 1.8 TCO2 ARTERIAL 22.4 L BASIC METABOLIC PANEL (05/03/23 17:06) SODIUM 137 POTASSIUM 4.2 CHLORIDE 108H H CARBON DIOXIDE 24 GLUCOSE 179H H BLOOD UREA NITROGEN 14 GLOMERULAR FILTRATION RATE >=60 max estimate CREATININE 0.50L L CALCIUM 8.0 L MAG (05/03/23 17:06) MAGNESIUM 1.9 PHOS (05/03/23 17:06) PHOSPHOROUS 2.3 L BLOOD GAS W/ELECTROLYTES (05/03/23 17:05) ARTERIAL BLOOD GAS PH 7.42 ARTERIAL BLOOD GAS PCO2 35.1 ARTERIAL BLOOD GAS PO2 158.9 H BICARBONATE TOTAL HCO3 22.1 BASE EXCESS -1.9 ABG O2 SATURATION 98.7 ARTERIAL FIO2 40.0 ABG VENT MODE Ventilator ALLENS TEST NOT APPLICABLE SODIUM (POC) 133 L POTASSIUM (POC) 4.06 CHLORIDE (ARTERIAL) 103 GLUCOSE 178 H IONIZED CALCIUM 1.21 POC LACTIC ACID 1.00 TOTAL HGB 11.4 L OXYHEMOGLOBIN 98.4 H CARBOXYHEMOGLOBIN 0.0 METHEMOGLOBIN <0.8 HHb 1.3 TCO2 ARTERIAL 23.2 L BLOOD GAS W/ELECTROLYTES (05/03/23 16:07) ARTERIAL BLOOD GAS PH 7.46 H ARTERIAL BLOOD GAS PCO2 27.9 L ARTERIAL BLOOD GAS PO2 148.3 H BICARBONATE TOTAL HCO3 19.6 L BASE EXCESS -3.1 L ABG O2 SATURATION 98.6 ARTERIAL FIO2 40.0 ABG VENT MODE Ventilator ABG TEMPERATURE 36.1 ALLENS TEST NOT APPLICABLE SODIUM (POC) 133 L POTASSIUM (POC) 3.99 CHLORIDE (ARTERIAL) 104 GLUCOSE 189 H IONIZED CALCIUM 1.18 POC LACTIC ACID 0.95 TOTAL HGB 11.1 L OXYHEMOGLOBIN 98.0 CARBOXYHEMOGLOBIN 0.3 METHEMOGLOBIN <0.8 HHb 1.4 TCO2 ARTERIAL 20.4 L BLOOD GAS W/ELECTROLYTES (05/03/23 14:50) ARTERIAL BLOOD GAS PH 7.44 ARTERIAL BLOOD GAS PCO2 29.6 L ARTERIAL BLOOD GAS PO2 125.9 H BICARBONATE TOTAL HCO3 19.7 L BASE EXCESS -3.4 L ABG O2 SATURATION 98.2 ARTERIAL FIO2 60.0 ABG VENT MODE Ventilator ALLENS TEST NOT APPLICABLE SODIUM (POC) 131 L POTASSIUM (POC) 4.39 CHLORIDE (ARTERIAL) 103 GLUCOSE 210 H IONIZED CALCIUM 1.28 POC LACTIC ACID 0.92 TOTAL HGB 11.4 L OXYHEMOGLOBIN 97.6 CARBOXYHEMOGLOBIN 0.3 METHEMOGLOBIN <0.8 HHb 1.8 TCO2 ARTERIAL 20.7 L BLOOD GAS W/ELECTROLYTES (05/03/23 13:45) ARTERIAL BLOOD GAS PH 7.44 ARTERIAL BLOOD GAS PCO2 32.0 L ARTERIAL BLOOD GAS PO2 79.7 L BICARBONATE TOTAL HCO3 21.4 L BASE EXCESS -1.9 ABG O2 SATURATION 95.4 ARTERIAL FIO2 60.0 ABG VENT MODE Ventilator ALLENS TEST NOT APPLICABLE SODIUM (POC) 132 L POTASSIUM (POC) 4.41 CHLORIDE (ARTERIAL) 104 GLUCOSE 205 H IONIZED CALCIUM 1.17 POC LACTIC ACID 0.96 TOTAL HGB 11.7 D L OXYHEMOGLOBIN 94.9 CARBOXYHEMOGLOBIN 0.2 METHEMOGLOBIN <0.8 HHb 4.6 TCO2 ARTERIAL 22.4 L BLOOD GAS W/ELECTROLYTES (05/03/23 12:52) ARTERIAL BLOOD GAS PH 7.43 ARTERIAL BLOOD GAS PCO2 33.9 L ARTERIAL BLOOD GAS PO2 101.2 H BICARBONATE TOTAL HCO3 22.1 BASE EXCESS -1.6 ABG O2 SATURATION 97.3 ARTERIAL FIO2 60.0 ABG VENT MODE Ventilator ALLENS TEST NOT APPLICABLE SODIUM (POC) 133 L POTASSIUM (POC) 4.47 CHLORIDE (ARTERIAL) 105 GLUCOSE 193 H IONIZED CALCIUM 1.17 POC LACTIC ACID 0.92 TOTAL HGB 11.0 L OXYHEMOGLOBIN 96.9 CARBOXYHEMOGLOBIN 0.1 METHEMOGLOBIN <0.8 HHb 2.7 TCO2 ARTERIAL 23.2 L PROTHROMBIN TIME (05/03/23 12:49) PROTHROMBIN TIME PATIENT 15.7 H INTERNATIONAL NORMAL RATIO 1.42 H CBC W/AUTO DIFF (05/03/23 12:49) WHITE BLOOD CELL 21.3H H RED BLOOD CELL 3.74 L HEMOGLOBIN 10.2D L D L HEMATOCRIT 29.4L L MEAN CELL VOLUME 78.6 L MEAN CELL HGB 27.3 MEAN CELL HGB CONCENTRATION 34.7 RED CELL DISTRIBUTION WIDTH 12.9 PLATELET COUNT 191 MEAN PLATELET VOLUME 9.8 NEUTROPHIL % 83.8 H LYMPHOCYTE % 7.4 L MONOCYTE % 6.3 EOSINOPHIL % 0.6 BASOPHIL % 0.3 NEUTROPHIL # 17.88 H LYMPHOCYTE # 1.58 MONOCYTE # 1.34 H EOSINOPHIL # 0.12 BASOPHIL # 0.07 MAG (05/03/23 12:49) MAGNESIUM 1.8 PHOS (05/03/23 12:49) PHOSPHOROUS 2.1 L BASIC METABOLIC PANEL (05/03/23 12:49) SODIUM 139 POTASSIUM 4.6 CHLORIDE 109H H CARBON DIOXIDE 24 GLUCOSE 195H H BLOOD UREA NITROGEN 13 GLOMERULAR FILTRATION RATE >=60 max estimate CREATININE 0.50L L CALCIUM 7.4 D L PTT (05/03/23 12:49) THROMBOPLASTIN TIME PARTIAL 30.8 D LACTIC ACID (05/03/23 12:49) LACTIC ACID 0.70 ACT (05/03/23 11:35) COAGULATION TIME ACTIVATED 142 H ACT (05/03/23 11:13) COAGULATION TIME ACTIVATED 482 H ACT (05/03/23 10:44) COAGULATION TIME ACTIVATED 650 H ACT (05/03/23 10:19) COAGULATION TIME ACTIVATED 709 H Signed in PatientKeeper by Andres Patel MD CF1 on 05/04/23 at 09:46 Cosigned by JUAN M WEI MD on 05/08/23 at 09:59 at 0959 at 0959 ATTE NTION *EDITS and/or ADDENDA must be made in Patient Keeper for this note. * * Edits and ammendments created in [facility] are not visible * * in Patient Keeper or the legal medical record (HPF). * RPT #: [id number] END OF REPORT [facility] 2023-05-03 16:44:00 [facility] ([facility]) Hospitalist Progress Note REPORT #: [id number] REPORT STATUS: Signed DATE: 05/03/23 TIME: 1643 PATIENT: LUIS GUZMÁN UNIT #: [id number] ROOM #: [id number] BED: 1 : 55 AGE: 67 SEX: M ATTEND: Rajesh Kilgore MD ADM AUTHOR: Rajesh Kilgore MD ATTE NTION *EDITS and/or ADDENDA must be made in Patient Keeper for this note. * * Edits and ammendments created in [employer] are not visible * * in Patient Keeper or the legal medical record (HPF). * -- ASSESSMENT AND PLAN -- GENERAL ASSESSMENT: ASSESSMENT AND PLAN: 1. Critical multivessel coronary artery disease including distal left main, 90-99%, at the origin of the left anterior descending, the origin of the circumflex, first diagonal with 99% first obtuse marginal with 80%, and a left ventricular ejection fraction of 50-55% with anteroapical hypokinesis. The patient apparently had a non-ST segment elevation myocardial infarction a few weeks ago. His disease is not amenable to percutaneous coronary intervention. I will continue to hold clopidogrel and metformin. Start heparin infusion. Continue beta blockers and statins. the patient underwent Urgent CABG X 2 using cardiopulmonary bypass Left internal mammary artery bypass to the left anterior descending and first diagonal coronary arteries (sequential graft) Reversed saphenous vein graft to the ramus intermedius coronary artery by Dr Wilfrido Gray 05/03/23. 2. Diabetes mellitus type 2, not well controlled. Hemoglobin A1c is 8.2. Continue long-acting and short-acting insulins. 3. Hypertension, continue carvedilol and nifedipine. We will hold angiotensin receptor blockers perioperatively. 4. Benign prostatic hypertrophy. Continue finasteride and tamsulosin. 5. History of cerebrovascular accident, with minimal left-sided residual weakness. 6. Chronic kidney disease stage II. 7. Anemia. 7A. Acute surgical blood loss anemia. 8. Subsegmental atelectasis. Incentive spirometry. 9. Leukocytosis, reactive. ADDITIONAL COMMENTS: s/p CABG x 2, 05/03/23. -- SUBJECTIVE -- HPI: This 67-year-old gentleman has a past medical history significant for insulin-dependent diabetes with neuropathy, CVA, hypertension, hyperlipidemia and AV fistula repair in the neck. The patient has had complaints of progressive fatigue and tiredness and was recently admitted to an outside hospital with a viral illness/pneumonia. Troponin was found to be elevated and echocardiogram showed dilated cardiomyopathy and wall motion abnormalities consistent with stress cardiomyopathy or disease. The patient was admitted for selective coronary angiogram by Dr. Katya Cruz on 04/28/2023 to [facility]. It showed critical distal left main disease involving the origin of the left anterior descending, 99%, distal left main 90%, ostium in origin of the left circumflex 90% and a big ramus intermedius with 99% stenosis, first obtuse marginal is small with 80% focal disease, left ventricular ejection fraction 50-55% with anteroapical hypokinesis and end-diastolic pressure of 25. With these critical findings, the patient was transferred to the [facility] for consideration of urgent CABG by Dr. Wilfrido Gray. PATIENT NARRATIVE: 04/29: No acute events overnight. No chest pain or shortness of breath. Therapeutic PTT on heparin. Plans for CABG with Dr. Wilfrido Gray week of 05/02. CT shows: Bandlike scarring versus subsegmental atelectasis at the bilateral lower lobes. Coronary artery calcifications are noted. No cardiomegaly. -Carotid Dopplers negative for any hemodynamically significant lesion. Vein mapping done. 04/30: on heparin infusion, PTT therapeutic. last dose of clopidogrel 04/25; Intermittent chest pain. Blood sugars not well-controlled, I have optimized the regimen. for CABG 05/[address] Wilfrido Gray. 05/01: 2D echo shows Left ventricle: The cavity size is normal. Wall thickness is mildly increased. Systolic function is normal. The estimated ejection fraction is 50-54%. Wall motion is normal; there are no regional wall motion abnormalities. Doppler parameters are consistent with restrictive physiology, indicative of decreased left ventricular diastolic compliance and/or increased left atrial pressure. Left atrium: The atrium is mildly dilated. -Intermittent chest pain and shortness of breath In good spirits otherwise. Looking forward to CABG 05/03/[address] Wilfrido Gray. 05/02: No acute events overnight. Some chest discomfort and shortness of breath. Blood sugars could be better. insulin dose adjusted. On heparin infusion, PTT is therapeutic. For CABG 05/[address] Wilfrido Gray. 05/03: the patient underwent Urgent CABG X 2 using cardiopulmonary bypass Left internal mammary artery bypass to the left anterior descending and first diagonal coronary arteries (sequential graft) Reversed saphenous vein graft to the ramus intermedius coronary artery by Dr Wilfrido Gray 05/03/23. Normal biv function pre and intra-op and easy intubation per anesthesia. Intra-op I/O: Crystalloid 2200 ml, CS 225 ml; EBL 750 ml, UO [address]. -REVIEW OF SYSTEMS- GENERAL: as above -- OBJECTIVE -- VITALS (05/02 12:27 - 05/03 12:27): Temperature C: 36.6 (36.4 - 36.6) Pulse Rate 60 (52 - 66) Respiratory rate: 16 (9 - 34) Blood pressure: 136/76 (108/51 - 151/76) Blood pressure source: Monitor I/Os (05/02 07:00 - 05/03 07:00): Net -250 Intake 300 Output 550 -EXAM- GENERAL: GENERAL: Elderly male VITAL SIGNS: Weight is 78.2 kilograms. Body mass index 27. HEENT: Head is atraumatic. Pupils are reactive to light and accommodation. Extraocular muscles intact. NECK: Supple. No thyromegaly. No JVD. CARDIOVASCULAR: Regular rate and rhythm. CHEST: sternotomy. 2 CTs. LUNGS: Clear to auscultation. ABDOMEN: Soft, nontender. EXTREMITIES: No edema, cyanosis or clubbing. Pedal pulses palpable. NEUROLOGIC: No focal deficit. INDWELLING DUMONT: Yes -- DATA -- MEDICATIONS ONDANSETRON HCL/PF 4 MG IV Q6H PRN CALCIUM GLUC IN NACL, ISO-OSM 2 GM IV ASDIR PRN LACTULOSE 30 ML PO ASDIR PRN hydroCHLOROthiazide 25 MG PO DAILY CYANOCOBALAMIN 500 MCG PO DAILY GLUCAGON 1 MG IM ASDIR PRN MAGNESIUM 1 GM IV ASDIR PRN traMADol HCL 50 MG PO Q6HR FERROUS SULFATE 325 MG PO DAILY DEXTROSE 50%-WATER 25 ML IV ASDIR PRN ASPIRIN 81 MG PO DAILY GLUCAGON 1 MG IM ASDIR PRN INSULIN LISPRO 0 UNITS SUBQ C MEALS HS ACETAMINOPHEN 650 MG PO Q6HR bisacodyL 10 MG RECTAL ASDIR PRN ACETAMINOPHEN 650 MG PO Q4H PRN polyethylene glycoL 3350 1 PKT PO DAILY ACETAMINOPHEN 1000 MG IV ONCE ACETAMINOPHEN 650 MG RECTAL Q4H PRN NIFEdipine 60 MG PO Q12HR hydrALAZINE HCL 10 MG IV Q6HR PRN FINASTERIDE 5 MG PO BEDTIME ATORVASTATIN CALCIUM 40 MG PO BEDTIME SPIRONOLACTONE 25 MG PO DAILY INSULIN GLARGINE 25 UNITS SUBQ 0800 ACETAMINOPHEN 650 MG PO Q4H PRN DOCUSATE SODIUM 100 MG PO BID MAGNESIUM HYDROXIDE 30 ML PO ASDIR PRN DEXTROSE 50%-WATER 25 ML IV ASDIR PRN INSULIN LISPRO 5 UNITS SUBQ AC ALBUTEROL SULFATE 2.5 MG NEB RTQ6H PRN SENNOSIDES 2 TAB PO ASDIR PRN ONDANSETRON 4 MG PO Q6H PRN LACTULOSE 30 ML PO ASDIR PRN MUPIROCIN 1 APPLIC NASAL BID SODIUM BICARBONATE 8.4% 50 MEQ IV .ONCE PRN ASPIRIN 81 MG PO DAILY DOCUSATE SODIUM 200 MG PO DAILY SODIUM CHLORIDE 10 mL 10 ML IV ASDIR ONDANSETRON HCL/PF 4 MG IV Q6H PRN carvediloL 25 MG PO BID MEALS NITROGLYCERIN 0.4 MG SL Q5M PRN TAMSULOSIN 0.4 MG PO BEDTIME LABS ACT (05/03/23 11:35) COAGULATION TIME ACTIVATED 142 H ACT (05/03/23 11:13) COAGULATION TIME ACTIVATED 482 H ACT (05/03/23 10:44) COAGULATION TIME ACTIVATED 650 H ACT (05/03/23 10:19) COAGULATION TIME ACTIVATED 709 H ACT (05/03/23 09:34) COAGULATION TIME ACTIVATED 725 H ACT (05/03/23 08:38) COAGULATION TIME ACTIVATED 157 H GLU BED (05/03/23 06:50) GLUBED 149 H GLU BED (05/02/23 20:42) GLUBED 158 H GLU BED (05/02/23 17:14) GLUBED 182 H PROTHROMBIN TIME (05/03/23 12:49) PROTHROMBIN TIME PATIENT 15.7 H INTERNATIONAL NORMAL RATIO 1.42 H CBC W/AUTO DIFF (05/03/23 12:49) WHITE BLOOD CELL 21.3H H RED BLOOD CELL 3.74 L HEMOGLOBIN 10.2D L D L HEMATOCRIT 29.4L L MEAN CELL VOLUME 78.6 L MEAN CELL HGB 27.3 MEAN CELL HGB CONCENTRATION 34.7 RED CELL DISTRIBUTION WIDTH 12.9 PLATELET COUNT 191 MEAN PLATELET VOLUME 9.8 NEUTROPHIL % 83.8 H LYMPHOCYTE % 7.4 L MONOCYTE % 6.3 EOSINOPHIL % 0.6 BASOPHIL % 0.3 NEUTROPHIL # 17.88 H LYMPHOCYTE # 1.58 MONOCYTE # 1.34 H EOSINOPHIL # 0.12 BASOPHIL # 0.07 MAG (05/03/23 12:49) MAGNESIUM 1.8 PHOS (05/03/23 12:49) PHOSPHOROUS 2.1 L LACTIC ACID (05/03/23 12:49) LACTIC ACID 0.70 BLOOD GAS W/ELECTROLYTES (05/03/23 13:45) ARTERIAL BLOOD GAS PH 7.44 ARTERIAL BLOOD GAS PCO2 32.0 L ARTERIAL BLOOD GAS PO2 79.7 L BICARBONATE TOTAL HCO3 21.4 L BASE EXCESS -1.9 ABG O2 SATURATION 95.4 ARTERIAL FIO2 60.0 ABG VENT MODE Ventilator ALLENS TEST NOT APPLICABLE SODIUM (POC) 132 L POTASSIUM (POC) 4.41 CHLORIDE (ARTERIAL) 104 GLUCOSE 205 H IONIZED CALCIUM 1.17 POC LACTIC ACID 0.96 TOTAL HGB 11.7 D L OXYHEMOGLOBIN 94.9 CARBOXYHEMOGLOBIN 0.2 METHEMOGLOBIN <0.8 HHb 4.6 TCO2 ARTERIAL 22.4 L -- QUALITY -- -MEDICATIONS- - I attest that the foregoing medication list in the medical record is true, accurate, and complete to the best of my knowledge. -- ATTESTATION -- CARE ACTIVITIES / CARE COORDINATION: - I have reviewed the history and repeated the gupta elements - I have seen and examined this patient - I have reviewed the progress in the clinical course since the last examination - I have discussed the patient's condition with other members of the care team Signed in PatientKeeper by Rajesh Kilgore MD on 05/04/23 at 13:16 at 1316 ATTE NTION *EDITS and/or ADDENDA must be made in Patient Keeper for this note. * * Edits and ammendments created in [employer] are not visible * * in Patient Keeper or the legal medical record ([facility]). * RPT #: [id number] END OF REPORT [facility] 2023-05-03 13:56:00 [facility] ([facility]) Operative Report REPORT #: [id number] REPORT STATUS: Signed DATE: 05/03/23 TIME: 1356 PATIENT: LUIS GUZMÁN UNIT #: [id number] ROOM #: [id number] BED: 1 : 55 AGE: 67 SEX: M ATTEND: Rajesh Kilgore MD ADM AUTHOR: Wilfrido Gray MD ATTE NTION *EDITS and/or ADDENDA must be made in Patient Keeper for this note. * * Edits and ammendments created in [employer] are not visible * * in Patient Keeper or the legal medical record ([facility]). * -- OPERATION -- SURGERY START DATE/TIME: 2023-05-03 08:40 PRE-OPERATIVE DIAGNOSIS: See Full Summary POST-OPERATIVE DIAGNOSIS: See Full Summary INDICATION(S): See Full Summary NAME OF PROCEDURE: See Full Summary TIME OUT COMPLETED: Yes SURGEON: Wilfrido Gray MD BORDERER(S): See Full Summary ANESTHESIA: See Full Summary ESTIMATED BLOOD LOSS: 500 ml's FINDINGS: See Full Summary SPECIMEN(S) REMOVED AND/OR ALTERED: See Full Summary COMPLICATION(S): See Full Summary -- DESCRIPTION -- DESCRIPTION OF TECHNIQUE/PROCEDURE: SURGEON 1ST BORDERER 2ND BORDERER DATE OFOPERATION Uriel Sanz P.Chaitanya Wolfe PLeonor 05/03/2023 PREOPERATIVE DIAGNOSIS: 1. Unstable angina 2. Multivessel coronary artery disease 3. Good left ventricular function (LVEF 55 %) 4. Mild mitral regurgitation 5. diabetes mellitus 6. Diabetic neuropathy 7. Hypertension 8. Hyperlipidemia 9. History of stroke POSTOPERATIVE DIAGNOSIS: Same OPERATION: 1. Urgent CABG X 2 using cardiopulmonary bypass Left internal mammary artery bypass to the left anterior descending and first diagonal coronary arteries (sequential graft) Reversed saphenous vein graft to the ramus intermedius coronary artery 2. Cold blood cardioplegic arrest 3. Endoscopic vein harvesting (ZOHRA Ronquillo) 4. Insertion of temporary epicardial pacing wires AORTIC CLAMP TIME: 60 minutes TOTAL PUMP TIME: 73 minutes LOWEST NASOPHARYNGEAL TEMP: 33.5 C LOWEST BLADDER TEMP: 34.2 C BLOOD REQUIREMENTS: None (1 unit of Cell Saver) PROCEDURE: Mr. Guzmán is a most pleasant 67-year-old gentleman with a past medical history significant for diabetes mellitus, hypertension, and hyperlipidemia. Recently, Mr. Guzmán has been complaining of fatigue and effort dyspnea. He was admitted to [facility] and diagnosed with viral illness/pneumonia. As his cardiac enzymes were elevated, he underwent an echocardiogram that demonstrated some degree of wall motion abnormalities. LHC (04/28/2023) demonstrated critical distal left main disease with mild disease in a codominant RCA. His LVEDP was elevated (25 mmHg). Mr. Guzmán was therefore transferred to [facility] for higher level of care and surgical coronary revascularization. Echocardiogram prior to surgery demonstrated mild mitral regurgitation with good left ventricular function. The risks and benefits of the operation were explained in detail to the patient, and informed consent was obtained. The patient was taken to the operating room, placed in the supine position and administered satisfactory general endotracheal anesthesia. A time-out procedure was performed, confirming the patient's name, MRN, and procedure to be performed. Transesophageal echocardiogram demonstrated good left ventricular function (LVEF 55%) with mild MR. These findings correlate with preoperative transthoracic echocardiogram. Next, chest, abdomen and legs were prepped and draped in the usual sterile manner. The chest was entered through a median sternotomy. The left pleura was entered. Next, the left internal mammary artery was dissected in a skeletonized fashion by using the cautery starting from the 6th intercostal space going proximally to the first rib. The branches were ligated with hemoclips and divided. The artery was found to be of normal diameter and demonstrated good flow. Then, the left internal mammary artery was placed and soaked with Papaverine solution. Simultaneously, the greater saphenous vein was harvested from the left leg. The vein was found to be dilated. At that point, the pericardium was opened longitudinally. The heart demonstrated good global function. The ascending aorta was not dilated. The patient was anti-coagulated with sodium heparin, and the heart was cannulated for cardiopulmonary bypass with placement of a 20Fr arterial cannula in the distal ascending aorta and a dual stage cannula in the right atrium. Cardiopulmonary bypass was established, and the patient was allowed to drift to the above stated temperature. An antegrade cardioplegia cannula was inserted into the ascending aorta and secured, following which the ascending aorta was cross-clamped. Cold blood cardioplegic solution was instilled into the ascending aorta establishing a diastolic arrest. This was repeated at 15-minute intervals keeping the heart isoelectric. Evaluation of the obtuse marginal coronary arteries demonstrated small vessels that are not suitable for bypass. At that point, the ramus intermedius coronary artery was identified. The vessel was noted to be heavily calcified. It was identified in an intramuscular portion and was opened longitudinally. The vessel was noted to be suitable for bypass admitting a 2.0 mm dilator. A saphenous vein segment was then fashioned end-to-side to the arteriotomy made in this vessel and the anastomosis was completed using a running # 7/0 Prolene suture. With the completion of this distal anastomosis, left anterior descending coronary artery was identified. This vessel was heavily calcified as well. It was opened at a distal segment (intramuscular as well) and was noted to be suitable for bypass admitting a 1.5 mm dilator. Next, the left internal mammary artery was fashioned end-to side to the arteriotomy made in the left anterior descending coronary artery, and the anastomosis was completed using a running # 8/0 Prolene suture. One small aortotomy was made in the ascending aorta, to which the saphenous vein graft to the ramus intermedius coronary artery was sutured in an end-to-side fashion using a running # 6/0 Prolene suture. The heart chambers were filled with blood. Any potential air was evacuated via the antegrade aortic cardioplegia cannula. The patient was placed in the head-down position and the aortic cross-clamp released. The heart regained a normal sinus rhythm spontaneously. Rewarming continued to a nasopharyngeal and bladder temperature of 36.0 C. After demonstrating satisfactory hemodynamics, the patient was uneventfully weaned from cardiopulmonary bypass. Transesophageal echocardiogram demonstrated good left ventricular function with no new wall-motion abnormalities. The aortic and vena caval cannulae were removed. Protamine sulfate was administered to reverse the anti-coagulated state. Temporary epicardial pacing wires were placed on the right ventricular outflow tract. One # 36 chest tube was placed in the mediastinum, and one # 28 right angle chest tube was placed in the left pleural space for drainage. The chest was closed with interrupted # 7 stainless steel surgical wires on the sternum, running #l Vicryl Plus on the muscular fascia and running # 3/0 Monocryl suture for the skin. The patient tolerated the procedure well and was taken to the ICU in stable condition. Sponge, needle and instrument x4 were correct. I was present as surgeon for all elements of this operation that included opening the chest, harvesting the left internal mammary artery, establishing cardiopulmonary bypass and performing all distal and proximal anastomoses of the coronary arteries, including the left internal mammary artery to the left anterior descending coronary artery. I weaned the patient from cardiopulmonary bypass and closed the incision. Due to the complexity of this surgery, a surgical appliance fitter was necessary. Jose R Perez PA-C was present and scrubbed for the entirety of the case.Jose R was essential for the proper positioning, manipulation of instruments, maintenance/exposure of a clear surgical field.He helped initiating/weaning from cardiopulmonary bypass and completion of all anastomoses as described above. This operation could not have been safely performed (without compromising the technical results or length of the procedure) without the assistance of a skilled medical or surgical instrument maker. Wilfrido Gray M.D. Signed in PatientKeeper by Wilfrido Gray MD on 05/03/23 at 14:01 at 1401 ATTE NTION *EDITS and/or ADDENDA must be made in Patient Keeper for this note. * * Edits and ammendments created in [facility] are not visible * * in Patient Keeper or the legal medical record (HPF). * RPT #: [id number] END OF REPORT [facility] 2023-05-03 13:14:00 [facility] ([facility]) Cardiology Progress Notes REPORT #: [id number] REPORT STATUS: Signed DATE: 05/03/23 TIME: 1313 PATIENT: LUIS GUZMÁN UNIT #: [id number] ROOM #: [facility] BED: A : 55 AGE: 67 SEX: M ATTEND: Rajesh Kilgore MD ADM AUTHOR: Andres Patel MD CF1 ATTE NTION *EDITS and/or ADDENDA must be made in Patient Keeper for this note. * * Edits and ammendments created in [facility] are not visible * * in Patient Keeper or the legal medical record (HPF). * -- CO-SIGNATURE -- COMMENTS: The patient was seen on rounds with Andres Patel MD The patient has no complaints Examination demonstrates normal heart sounds and clear lung mcmanus. Impression and plan The patient is a 67-year-old gentleman with a history of hypertension, hypertension lipidemia, diabetes mellitus who is now status post two-vessel bypass surgery. Chest tubes remain in place. Continue dual antiplatelet therapy, statin and try low-dose beta-blockade. Will slowly add back patient's blood pressure medicines from home once blood pressure allows. Signed in PatientKeeper by JUAN M WEI MD on 05/08/23 at 09:58 -- ASSESSMENT AND PLAN -- HOSPITAL COURSE TO DATE: 05/03/2023: S/P 2 Vessel CAB WERNER to LAD and Left Great Saphenous vein to Ramus Intermedius. GENERAL ASSESSMENT: Mr. Guzmán is a 67 YO gentleman with PMH of HTN, DM, HLD, who underwent a selective coronary angiogram on 04/28/2023 at [facility] demonstrating distal left main disease (90%), LAD (99%), ostial LCx (90%), big RI (99%), OM1 (small, 80%), LVEF 50-55%, currently s/p 2 vessels Bypass with WERNER to LAD and Saphenous vein graft to RI. The patient is intubated, sedated in the immediately post-op period. PROBLEMS: 1: Coronary artery disease A/P: Mr. Guzmán is a 67-year-old gentleman who is referred by Dr. Katya Cruz and who was having worsening symptoms of fatigue and possibly chest discomfort, underwent a selective coronary angiogram on 04/28/2023 at [facility] demonstrating distal left main disease (90%), LAD (99%), ostial LCx (90%), big RI (99%), OM1 (small, 80%), ECHO with LVEF 50-55%, and restrictive physiology with diastolic dysfunction. He was transferred here for urgent bypass surgery with Dr. Wilfrido Gray. # Currently S/P CABG x 2, WERNER to LAD and SVG to RI. - Hemodynamically stable, not on any inotropic support or pressor. - Continue Aspirin 81 mg po daily, Atorvastatin 80mg daily, Carvedilol 25mg BID -Initiate Plavix 75 mg post CABG. 2: S/P CABG x 2 A/P: On 05/03/2023, WERNER to LAD , SVG to RI 2 Chest Tubes present Pacer wires and bed side external pacemaker present. CV Surgery following the patient. 3: Hypertension A/P: - On carvedilol 25mg BID - On hold for surgery. Resume once indicated after CABG. -Nifedipine 60mg BID, HCTZ 25mg rick spironolactone 25mg daily . On hold for now, to resume once pt is more stable post CABG. -- SUBJECTIVE -- CHIEF COMPLAINT: Intubated, sedated, in the immediate post-op period. HPI: Mr. 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 Katya Cruz and who was having worsening symptoms of fatigue and chest discomfort. He underwent a selective coronary angiogram on 04/28/2023 at [facility] demonstrating distal left main disease (90%), LAD (99%), ostial LCx (90%), big RI (99%), OM1 (small, 80%), LVEF 50-55%. He was transferred here for urgent bypass surgery with Dr. Wilfrido Gray. He underwent 2 Vessel CAB this morning. Currently the patient is stable, intubated, not on any inotropic support or vasopressors. PATIENT NARRATIVE: Pt is intubated, sedated. -REVIEW OF SYSTEMS- COMMENT: Intubated. -- OBJECTIVE -- VITALS (05/02 13:14 - 05/03 13:14): Temperature C: 36.6 (36.4 - 36.6) Pulse Rate 75 (52 - 75) Respiratory rate: 16 (9 - 34) Blood pressure: 136/76 (108/51 - 151/76) Blood pressure source: Monitor I/Os (05/02 07:00 - 05/03 07:00): Net -250 Intake 300 Output 550 -EXAM- GENERAL: Well developed, well nourished, in no apparent distress. Intubated, sedated. HEAD: Normocephalic, atraumatic. NOSE: No deformity, no discharge, no inflammation, no lesions. MOUTH: Oropharynx without deformities or lesions, normal mucosa..ETT+. NECK: No masses, no thyromegaly, no abnormal cervical nodes, trachea midline. central line on the right IJ. CHEST: Grossly normal appearance. Mid-sternotomy wound clean. Chest tubes in place. Pacer wires in place. LUNGS: Clear bilaterally with normal respiratory effort. HEART: Regular rate and rhythm, normal S1, S2, loud murmurs to rub due to chest tubes, no gallops, no clicks. ABDOMEN: Soft, non-tender, no organomegaly, no masses noted. EXTREMITIES: No clubbing, no cyanosis, no edema. NEUROLOGICAL: Sedated, intubated. -- DATA -- MEDICATIONS CALCIUM GLUC IN NACL, ISO-OSM 2 GM IV ASDIR PRN LACTULOSE 30 ML PO ASDIR PRN POTASSIUM CHLORIDE 20 MEQ IV ASDIR (PRN) (Held) hydroCHLOROthiazide 25 MG PO DAILY CYANOCOBALAMIN 500 MCG PO DAILY NOREPINEPHRINE BITARTRATE 4 MG IV TITRATE EPINEPHrine HCL/D5W 4 MG IV ASDIR niCARdipine HCL with/in SODIUM CHLORIDE 100 mL BAG 25 MG IV TITRATE MAGNESIUM 1 GM IV ASDIR PRN traMADol HCL 50 MG PO Q6HR FERROUS SULFATE 325 MG PO DAILY DEXTROSE 50%-WATER 25 ML IV ASDIR PRN ASPIRIN 81 MG PO DAILY ALBUMIN HUMAN 12.5 GM IV STAT GLUCAGON 1 MG IM ASDIR PRN INSULIN LISPRO 0 UNITS SUBQ C MEALS HS ACETAMINOPHEN 650 MG PO Q6HR bisacodyL 10 MG RECTAL ASDIR PRN ACETAMINOPHEN 650 MG PO Q4H PRN polyethylene glycoL 3350 1 PKT PO DAILY ACETAMINOPHEN 650 MG RECTAL Q4H PRN (Held) NIFEdipine 60 MG PO Q12HR hydrALAZINE HCL 10 MG IV Q6HR PRN FINASTERIDE 5 MG PO BEDTIME ATORVASTATIN CALCIUM 40 MG PO BEDTIME (Held) SPIRONOLACTONE 25 MG PO DAILY (Held) INSULIN GLARGINE 25 UNITS SUBQ 0800 MAGNESIUM HYDROXIDE 30 ML PO ASDIR PRN DEXTROSE 50%-WATER 25 ML IV ASDIR PRN INSULIN LISPRO 5 UNITS SUBQ AC ALBUTEROL SULFATE 2.5 MG NEB RTQ6H PRN SENNOSIDES 2 TAB PO ASDIR PRN ONDANSETRON 4 MG PO Q6H PRN LACTULOSE 30 ML PO ASDIR PRN MUPIROCIN 1 APPLIC NASAL BID SODIUM BICARBONATE 8.4% 50 MEQ IV .ONCE PRN ASPIRIN 81 MG PO DAILY DOCUSATE SODIUM 200 MG PO DAILY SODIUM CHLORIDE 10 mL 10 ML IV ASDIR INSULIN REG HUMAN REC with/in SODIUM CHLORIDE 100 mL BAG 100 UNIT IV ASDIR ONDANSETRON HCL/PF 4 MG IV Q6H PRN (Held) carvediloL 25 MG PO BID MEALS NITROGLYCERIN 0.4 MG SL Q5M PRN TAMSULOSIN 0.4 MG PO BEDTIME LABS ACT (05/03/23 11:35) COAGULATION TIME ACTIVATED 142 H ACT (05/03/23 11:13) COAGULATION TIME ACTIVATED 482 H ACT (05/03/23 10:44) COAGULATION TIME ACTIVATED 650 H ACT (05/03/23 10:19) COAGULATION TIME ACTIVATED 709 H ACT (05/03/23 09:34) COAGULATION TIME ACTIVATED 725 H ACT (05/03/23 08:38) COAGULATION TIME ACTIVATED 157 H GLU BED (05/03/23 06:50) GLUBED 149 H GLU BED (05/02/23 20:42) GLUBED 158 H GLU BED (05/02/23 17:14) GLUBED 182 H Signed in PatientKeeper by Andres Patel MD CF1 on 05/03/23 at 13:43 Cosigned by JUAN M WEI MD on 05/08/23 at 09:58 at 0958 at 0958 ATTE NTION *EDITS and/or ADDENDA must be made in Patient Keeper for this note. * * Edits and ammendments created in [facility] are not visible * * in Patient Keeper or the legal medical record (HPF). * [facility] #: [id number] END OF REPORT [facility] 2023-05-03 12:26:00 [id number] [place] [address] PATIENT NAME: LUIS GUZMÁN ADMIT DATE: 04/28/23 ACCOUNT NO: [id number] ROOM NO: P.0308 AGE: 67 REPORT TYPE: 360 - QUERY RESPONSE DOCUMENT SEX: M ADMITTING PHYSICIAN:Rajesh Kilgore MD ATTENDING PHYSICIAN:Rajesh Kilgore MD Provider Query QUERY TEXT: Specificity General 360MD Query related questions should be directed to: [email or web address] Based on your clinical judgment and indicators present in the medical record below, can you please provide further specificity for "Hypertension" documented in the Hospitalist Progress Note by Rajesh Miranda at 04/30/2023 16:13 treated this admission? (e.g. hypertensive urgency, hypertensive emergency, hypertensive crisis with hypertensive disease/ckd 2 with heart disease with/without heart failure (specify hf type and acuity), other more appropriate diagnosis) The patient's Clinical Indicators include: BP - Systolic - 04/28/2023 23:00 - 178? BP - Diastolic - 04/28/2023 23:00 - 77? MAP - 04/28/2023 23:00 - 110? BP - Systolic - 04/29/2023 00:00 - 170? BP - Diastolic - 04/29/2023 00:00 - 79? MAP - 04/29/2023 00:00 - 114? BP - Systolic - 04/29/2023 01:00 - 177? BP - Diastolic - 04/29/2023 01:00 - 77? MAP - 04/29/2023 01:00 - 110? BP - Systolic - 04/29/2023 02:00 - 172? BP - Diastolic - 04/29/2023 02:00 - 72? MAP - 04/29/2023 02:00 - 104? BP - Systolic - 04/29/2023 04:00 - 173? BP - Diastolic - 04/29/2023 04:00 - 74? MAP - 04/29/2023 04:00 - 107? BP - Systolic - 04/29/2023 07:00 - 175? BP - Diastolic - 04/29/2023 07:00 - 78? MAP - 04/29/2023 07:00 - 112? Hospitalist Progress Note by Rajesh Miranda at 04/30/2023 16:13 "3. Hypertension, continue carvedilol and nifedipine. We will hold angiotensin receptor blockers perioperatively." Hospitalist Progress Note by Rajesh Miranda at 04/30/2023 16:13 "6. Chronic kidney disease stage II." MAR SUMMARY Clonidine PO, Losartan PO, Hydrochlorothiazide PO, Carvedilol PO, Nifedipine PO, IV Hydralazine Hospitalist Progress Note by Rajesh Miranda at 05/01/2023 17:43 "1. Critical multivessel coronary artery disease including distal left main, 90-99%, at the origin of the left anterior descending, the origin of the circumflex, first diagonal with 99% first obtuse marginal with 80%, and a left ventricular ejection fraction of 50-55% with anteroapical hypokinesis. The patient apparently had a non-ST segment elevation myocardial infarction a few weeks ago. His disease is not amenable to percutaneous coronary intervention and he has been transferred to the [facility] for consideration of CABG" Options provided: -- Respond - Create new note now -- Dismiss - Not applicable / Not valid -- Dismiss - Clinically unable to determine / Unknown -- Assign to another provider QUERY RESPONSE: Provider was clinically unable to determine a response for this query unable to determine Query created by: Renata Mcmanus on 05/03/2023 9:22 AM at 1226 PATIENT NAME: LUIS GUZMÁN [facility] 2023-05-03 12:16:00 [facility] ([facility]) Intensive Care Consultation REPORT #: [id number] REPORT STATUS: Signed DATE: 05/03/23 TIME: 1216 PATIENT: LUIS GUZMÁN UNIT #: [id number] ROOM #: P.[facility] BED: 1 : 55 AGE: 67 SEX: M ATTEND: Rajesh Kilgore MD ADM AUTHOR: Radha Tong APRN ATTE NTION *EDITS and/or ADDENDA must be made in Patient Keeper for this note. * * Edits and ammendments created in [facility] are not visible * * in Patient Keeper or the legal medical record (HPF). * -- CO-SIGNATURE -- COMMENTS: I have read and agree with Radha Tong's note as written. Critical Care: time spent apart from any procedure 30 minutes Ivelisse Gavin MD Critical Care Medicine Signed in PatientKeeper by IVELISSE GAVIN MD on 05/03/23 at 17:56 -- ASSESSMENT AND PLAN -- GENERAL ASSESSMENT: ASSESSMENT/PLAN: Overall: ICU Management of patient s/p CABG x2, 05/03 NEURO: Acute encephalopathy Acute postoperative pain CVA with residual left-sided weakness - Fentanyl IVP while intubated; MM pain regimen when extubated - PT/OT PULM: Acute respiratory insufficiency Atelectasis - ABG and CXR reviewed and acceptable - Will aim for fast track SBT; and assess for extubation - Supplemental O2 via nasal cannula when extubated and wean for spo2 > 92% - Bayard IS for volume expansion, PT, mobilize patient when extubated CVS: MV CAD Hyperlipidemia Hx AV fistula repair in the neck - S/p CABG x 2 - Initiate ASA and statin - Initiate BB when hemodynamics improve - Post op hypotension - Low filling pressures; resuscitating with crystalloid/colloid - CT management per CVS GI: - NPO - OGT to LIWS - Clears when extubated; ADAT - GI ppx: PPI - Bowel regimen RENAL: - Baseline creatinine 0.5 - Continue to monitor UOP, renal function and electrolytes - Replete electrolytes per protocol - BMP, Mg now and daily HEM: Acute blood loss anemia - Stable and without need for transfusion - Continue to monitor CT output and for signs of bleeding - Trend coags; CBC now and daily ENDO: 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 (HgbA1c 8.2) - POCT q6 hrs - SSI ID: Leukocytosis, likely reactive Afebrile - Completing rogelio-op abx - Monitor for s/s of infection Code Status: Full code Disposition: ICU ICU CHECKLIST: Analgesia: Opioids Glycemic Control: Insulin Nutrition: NPO Ulcer Prophylaxis: PPI Chemical Thromboprophylaxis: Risk of bleeding outweighs risk of thrombosis Mechanical Thromboprophylaxis: SCD and Compression stockings Need for Central line: Yes, indications: medications requiring central venous access Need for Dumont catheter: Post-op surgery <24 hrs Ventilator bundle: Yes, Chlorhexidine mouthwash: yes Head of bed elevated >30 degrees: yes Sedation: Precedex Daily awakening trial: yes Daily spontaneous breathing trial: yes POST ACB: Aspirin: Yes Beta Maco: Yes - when BP able to tolerate Statin: Yes Medication reviewed with ICU pharmacist, 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 Patient underwent a selective coronary angiogram on 04/28/2023 at [facility] demonstrating distal left main disease (90%), LAD (99%), ostial LCx (90%), big RI (99%), OM1 (small, 80%), LVEF 50-55%. He was transferred here for urgent bypass surgery with Dr. Wilfrido Gray. 05/03: Patient underwent CABG, WERNER to LAD, SVG to Ramus by Dr. Gray. Intra-op uneventful. Normal biv function pre and intra-op and easy intubation per anesthesia. Intra-op I/O: Crystalloid 2200 ml, CS 225 ml; EBL 750 ml, UO 750 ml. Patient is transferred to CVICU for ongoing post op management. PAST MEDICAL HISTORY: Hypertension Hyperlipidemia CVA with residual left-sided weakness Multi vessel CAD PAST SURGICAL HISTORY: coronary angiogram on 04/28/2023 -SOCIAL HISTORY- -ALCOHOL USE- DETAILS/COMMENTS: Unable to assess -- SUBJECTIVE -- -REVIEW OF SYSTEMS- GENERAL: Unable to assess- intubated -- OBJECTIVE -- VITALS (05/02 12:16 - 05/03 12:16): Temperature C: 36.6 (36.4 - 36.6) Pulse Rate 60 (52 - 66) Respiratory rate: 16 (9 - 34) Blood pressure: 136/76 (108/51 - 151/76) Blood pressure source: Monitor I/Os (05/02 07:00 - 05/03 07:00): Net -250 Intake 300 Output 550 -EXAM- GENERAL: Well developed, well nourished, in no apparent distress. HEAD: Normocephalic, atraumatic. EYES: PERRL, EOM intact, conjunctiva and sclera clear, without nystagmus, lids normal. MOUTH: Oropharynx without deformities or lesions, normal mucosa. ETT in place LUNGS: Clear bilaterally with normal respiratory effort. HEART: Regular rate and rhythm, normal S1, S2, no murmurs, no rubs, no gallops, no clicks. EXTREMITIES: No clubbing, no cyanosis, no edema. INDWELLING DUMONT: Yes -- DATA -- MEDICATIONS ONDANSETRON HCL/PF 4 MG IV Q6H PRN hydroCHLOROthiazide 25 MG PO DAILY GLUCAGON 1 MG IM ASDIR PRN ASPIRIN 81 MG PO DAILY INSULIN LISPRO 0 UNITS SUBQ C MEALS HS NIFEdipine 60 MG PO Q12HR hydrALAZINE HCL 10 MG IV Q6HR PRN FINASTERIDE 5 MG PO BEDTIME ATORVASTATIN CALCIUM 40 MG PO BEDTIME SPIRONOLACTONE 25 MG PO DAILY INSULIN GLARGINE 25 UNITS SUBQ 0800 ACETAMINOPHEN 650 MG PO Q4H PRN DOCUSATE SODIUM 100 MG PO BID DEXTROSE 50%-WATER 25 ML IV ASDIR PRN INSULIN LISPRO 5 UNITS SUBQ AC ONDANSETRON 4 MG PO Q6H PRN carvediloL 25 MG PO BID MEALS NITROGLYCERIN 0.4 MG SL Q5M PRN TAMSULOSIN 0.4 MG PO BEDTIME LABS ACT (05/03/23 11:35) COAGULATION TIME ACTIVATED 142 H ACT (05/03/23 11:13) COAGULATION TIME ACTIVATED 482 H ACT (05/03/23 10:44) COAGULATION TIME ACTIVATED 650 H ACT (05/03/23 10:19) COAGULATION TIME ACTIVATED 709 H ACT (05/03/23 09:34) COAGULATION TIME ACTIVATED 725 H ACT (05/03/23 08:38) COAGULATION TIME ACTIVATED 157 H GLU BED (05/03/23 06:50) GLUBED 149 H GLU BED (05/02/23 20:42) GLUBED 158 H GLU BED (05/02/23 17:14) GLUBED 182 H Signed in PatientKeeper by Radha Tong APRN on 05/03/23 at 16:45 Cosigned by IVELISSE GAVIN MD on 05/03/23 at 17:56 at 1756 at 1756 ATTE NTION *EDITS and/or ADDENDA must be made in Patient Keeper for this note. * * Edits and ammendments created in [facility] are not visible * * in Patient Keeper or the legal medical record ([facility]). * RPT #: [id number] END OF REPORT [facility] 2023-05-03 12:15:00 [facility] ([facility]) Brief Operative Report REPORT #: [id number] REPORT STATUS: Signed DATE: 05/03/23 TIME: 1215 PATIENT: LUIS GUZMÁN UNIT #: [id number] ROOM #: P.0308 BED: 1 : 55 AGE: 67 SEX: M ATTEND: Rajesh Kilgore MD ADM AUTHOR: Jose R Perez ATTE NTION *EDITS and/or ADDENDA must be made in Patient Keeper for this note. * * Edits and ammendments created in [facility] are not visible * * in Patient Keeper or the legal medical record ([facility]). * -- BRIEF OP NOTE -- PRE-OPERATIVE DIAGNOSIS: Critical multi-vessel Coronary Artery Disease not amenable to PCI. LVEF preserved POST-OPERATIVE DIAGNOSIS: same NAME OF PROCEDURE: CABG x 3; WERNER--LAD, SVG-->Ramus EVH left leg TPW SURGEON: Wilfrido Gray MD BORDERER(S): Jose R Ortega PA-C FINDINGS: CAD ESTIMATED BLOOD LOSS (ML'S): 650 SPECIMEN(S) REMOVED AND/OR ALTERED: none COMPLICATION(S): none DRAIN(S): left pleural medistinal ADDITIONAL COMMENTS: one Cell saver no blood no inotropes Signed in PatientKeeper by Jose R Perez on 05/03/23 at 15:10 at 1510 ATTE NTION *EDITS and/or ADDENDA must be made in Patient Keeper for this note. * * Edits and ammendments created in [facility] are not visible * * in Patient Keeper or the legal medical record (HPF). * RPT #: [id number] END OF REPORT [facility] 2023-05-02 09:58:00 [facility] ([facility]) Hospitalist Progress Note REPORT #: [id number] REPORT STATUS: Signed DATE: 05/02/23 TIME: 957 PATIENT: LUIS GUZMÁN UNIT #: [id number] ROOM #: P.0402 BED: A : 55 AGE: 67 SEX: M ATTEND: Rajesh Kilgore MD ADM AUTHOR: Raejsh Kilgore MD ATTE NTION *EDITS and/or ADDENDA must be made in Patient Keeper for this note. * * Edits and ammendments created in [employer] are not visible * * in Patient Keeper or the legal medical record (HPF). * -- ASSESSMENT AND PLAN -- GENERAL ASSESSMENT: ASSESSMENT AND PLAN: 1. Critical multivessel coronary artery disease including distal left main, 90-99%, at the origin of the left anterior descending, the origin of the circumflex, first diagonal with 99% first obtuse marginal with 80%, and a left ventricular ejection fraction of 50-55% with anteroapical hypokinesis. The patient apparently had a non-ST segment elevation myocardial infarction a few weeks ago. His disease is not amenable to percutaneous coronary intervention and he has been transferred to the [facility] for consideration of CABG by Dr. Wilfrido Gray. I will continue to hold clopidogrel and metformin. Start heparin infusion. Continue beta blockers and statins. 2. Diabetes mellitus type 2, not well controlled. Hemoglobin A1c is 8.2. Continue long-acting and short-acting insulins. 3. Hypertension, continue carvedilol and nifedipine. We will hold angiotensin receptor blockers perioperatively. 4. Benign prostatic hypertrophy. Continue finasteride and tamsulosin. 5. History of cerebrovascular accident, with minimal left-sided residual weakness. 6. Chronic kidney disease stage II. 7. Anemia, mild. 8. Subsegmental atelectasis. Incentive spirometry. ADDITIONAL COMMENTS: Critical multivessel coronary artery disease in involving the distal left main. Plans for CABG 05/[address] Wilfrido Gray. -- SUBJECTIVE -- HPI: This 67-year-old gentleman has a past medical history significant for insulin-dependent diabetes with neuropathy, CVA, hypertension, hyperlipidemia and AV fistula repair in the neck. The patient has had complaints of progressive fatigue and tiredness and was recently admitted to an outside hospital with a viral illness/pneumonia. Troponin was found to be elevated and echocardiogram showed dilated cardiomyopathy and wall motion abnormalities consistent with stress cardiomyopathy or disease. The patient was admitted for selective coronary angiogram by Dr. Katya Cruz on 04/28/2023 to [facility]. It showed critical distal left main disease involving the origin of the left anterior descending, 99%, distal left main 90%, ostium in origin of the left circumflex 90% and a big ramus intermedius with 99% stenosis, first obtuse marginal is small with 80% focal disease, left ventricular ejection fraction 50-55% with anteroapical hypokinesis and end-diastolic pressure of 25. With these critical findings, the patient was transferred to the [facility] for consideration of urgent CABG by Dr. Wilfrido Gray. PATIENT NARRATIVE: 04/29: No acute events overnight. No chest pain or shortness of breath. Therapeutic PTT on heparin. Plans for CABG with Dr. Wilfrido Gray week of 05/02. CT shows: Bandlike scarring versus subsegmental atelectasis at the bilateral lower lobes. Coronary artery calcifications are noted. No cardiomegaly. -Carotid Dopplers negative for any hemodynamically significant lesion. Vein mapping done. 04/30: on heparin infusion, PTT therapeutic. last dose of clopidogrel 04/25; Intermittent chest pain. Blood sugars not well-controlled, I have optimized the regimen. for CABG 05/[address] Wilfrido Gray. 05/01: 2D echo shows Left ventricle: The cavity size is normal. Wall thickness is mildly increased. Systolic function is normal. The estimated ejection fraction is 50-54%. Wall motion is normal; there are no regional wall motion abnormalities. Doppler parameters are consistent with restrictive physiology, indicative of decreased left ventricular diastolic compliance and/or increased left atrial pressure. Left atrium: The atrium is mildly dilated. -Intermittent chest pain and shortness of breath In good spirits otherwise. Looking forward to CABG 05/03/[address] Wilfrido Gray. 05/02: No acute events overnight. Some chest discomfort and shortness of breath. Blood sugars could be better. insulin dose adjusted. On heparin infusion, PTT is therapeutic. For CABG 05/[address] Wilfrido Gray. -REVIEW OF SYSTEMS- GENERAL: CONSTITUTIONAL: Fatigue and tiredness. No fever or chills. No weight gain or weight loss. HEENT: Denies any cough, congestion, or runny nose. CARDIOPULMONARY: Shortness of breath. No chest pain. GASTROINTESTINAL: Denies any abdominal pain, nausea, vomiting, diarrhea or constipation. GENITOURINARY: Denies any dysuria or discharge. NEUROLOGICAL: Denies any headache, dizziness or syncope. -- OBJECTIVE -- VITALS (05/01 09:58 - 05/02 09:58): Temperature F: 98.6 Temperature C: 36.8 (36.6 - 36.9) Pulse Rate 59 (53 - 77) Respiratory rate: 16 (10 - 32) Blood pressure: 149/74 (108/60 - 158/75) Blood pressure source: Monitor I/Os (05/01 07:00 - 05/02 07:00): Net 886.80 Intake 1,836.80 Output 950 -- DATA -- MEDICATIONS ONDANSETRON HCL/PF 4 MG IV Q6H PRN HEPARIN/SOD CHLOR 0.45% 23258 UNITS IV TITRATE NIFEdipine 60 MG PO Q12HR hydroCHLOROthiazide 25 MG PO DAILY GLUCAGON 1 MG IM ASDIR PRN HEPARIN SODIUM,PORCINE 3000 UNIT IV ASDIR (PRN) hydrALAZINE HCL 10 MG IV Q6HR PRN FINASTERIDE 5 MG PO BEDTIME ATORVASTATIN CALCIUM 40 MG PO BEDTIME HEPARIN PHARMACY TO MONITOR 1 EACH IV ASDIR ASPIRIN 81 MG PO DAILY SPIRONOLACTONE 25 MG PO DAILY INSULIN GLARGINE 25 UNITS SUBQ 0800 ACETAMINOPHEN 650 MG PO Q4H PRN DOCUSATE SODIUM 100 MG PO BID DEXTROSE 50%-WATER 25 ML IV ASDIR PRN INSULIN LISPRO 5 UNITS SUBQ AC INSULIN LISPRO 0 UNITS SUBQ C MEALS HS carvediloL 25 MG PO BID MEALS NITROGLYCERIN 0.4 MG SL Q5M PRN ONDANSETRON 4 MG PO Q6H PRN HEPARIN SODIUM,PORCINE 5000 UNIT IV ASDIR (PRN) TAMSULOSIN 0.4 MG PO BEDTIME LABS PTT (05/02/23 08:08) THROMBOPLASTIN TIME PARTIAL 70.5 D H GLU BED (05/02/23 07:16) GLUBED 155 H BASIC METABOLIC PANEL (05/02/23 05:36) SODIUM 136 POTASSIUM 3.9 CHLORIDE 103 CARBON DIOXIDE 26 GLUCOSE 118H H BLOOD UREA NITROGEN 9 GLOMERULAR FILTRATION RATE >=60 max estimate CREATININE 0.60L L CALCIUM 8.4 L CBC W/AUTO DIFF (05/02/23 05:36) WHITE BLOOD CELL 10.8 RED BLOOD CELL 4.89 HEMOGLOBIN 13.3L L HEMATOCRIT 38.5L L MEAN CELL VOLUME 78.7 L MEAN CELL HGB 27.2 MEAN CELL HGB CONCENTRATION 34.5 RED CELL DISTRIBUTION WIDTH 12.9 PLATELET COUNT 313 MEAN PLATELET VOLUME 9.4 NEUTROPHIL % 56.4 LYMPHOCYTE % 29.4 MONOCYTE % 9.5 H EOSINOPHIL % 3.3 BASOPHIL % 0.6 NEUTROPHIL # 6.08 LYMPHOCYTE # 3.17 MONOCYTE # 1.02 H EOSINOPHIL # 0.36 BASOPHIL # 0.06 PTT (05/02/23 00:15) THROMBOPLASTIN TIME PARTIAL 54.0 D H GLU BED (05/01/23 20:44) GLUBED 190 H PTT (05/01/23 16:06) THROMBOPLASTIN TIME PARTIAL 120.7 D*H GLU BED (05/01/23 10:42) GLUBED 273 H COVID Asymp Ag (05/01/23 10:35) COVID 19 Asymptomatic IH AG NEGATIVE -- QUALITY -- -MEDICATIONS- - I attest that the foregoing medication list in the medical record is true, accurate, and complete to the best of my knowledge. -- ATTESTATION -- CARE ACTIVITIES / CARE COORDINATION: - I have reviewed the history and repeated the gupta elements - I have seen and examined this patient - I have reviewed the progress in the clinical course since the last examination - I have discussed the patient's condition with other members of the care team Signed in PatientKeeper by Rajesh Kilgore MD on 05/02/23 at 12:13 at 1213 ATTE NTION *EDITS and/or ADDENDA must be made in Patient Keeper for this note. * * Edits and ammendments created in [employer] are not visible * * in Patient Keeper or the legal medical record ([facility]). * RPT #: [id number] END OF REPORT [facility] 2023-05-02 08:00:00 [facility] ([facility]) Cardiology Progress Notes REPORT #: [id number] REPORT STATUS: Signed DATE: 05/02/23 TIME: 0800 PATIENT: LUIS GUZMÁN UNIT #: [id number] ROOM #: P.[id number] BED: A : 55 AGE: 67 SEX: M ATTEND: Rajesh Kilgore MD [facility] AUTHOR: Mckay Meyer ATTE NTION *EDITS and/or ADDENDA must be made in Patient Keeper for this note. * * Edits and ammendments created in [employer] are not visible * * in Patient Keeper or the legal medical record ([facility]). * -- CO-SIGNATURE -- COMMENTS: Seen and examined with ZOHRA Meyer. PE: NAD, alert and awake RRR, no m/g/r CTAB 67-year-old male with a past medical history of diabetes, hypertension, hyperlipidemia, and CVA who was transferred for CABG evaluation. The patient underwent left heart catheterization on April 28, 2023 at [facility] that demonstrated severe distal left main disease, severe LAD disease 99%, 90% ostial left circumflex, and 99% ramus intermedius. He has preserved ejection fraction on last echocardiogram. Repeat echocardiogram shows ejection fraction of 50 to 54% with grade 3 diastolic dysfunction. Will continue IV heparin. Will plan for CABG surgery this week, likely tomorrow. CV surgery is following. Signed in PatientKeeper by CLAUDE CONNELL MD on 06/09/23 at 01:22 -- ASSESSMENT AND PLAN -- PROBLEMS: 1: Coronary artery disease A/P: The patient is a 67-year-old gentleman who is referred by Dr. Katya Cruz and who was having worsening symptoms of fatigue and possibly chest discomfort. He has a past medical history of diabetes (on insulin, HgbA1c 8.2), hypertension, hyperlipidemia, CVA with residual left-sided weakness, AV fistula repair in the neck, and who underwent a selective coronary angiogram on 04/28/2023 at [facility] demonstrating distal left main disease (90%), LAD (99%), ostial LCx (90%), big RI (99%), OM1 (small, 80%), LVEF 50-55%. He was transferred here for urgent bypass surgery with Dr. Wilfrido Gray. Dr. Connell is providing coverage for Dr. Juan M Wei. - Echo (04/29/23) - EF 50-54%, restrictive physiology, decreased LV diastolic compliance - Hemodynamically stable - Hold losartan given upcoming surgery - Continue IV heparin - On aspirin, atorvastatin 40mg daily, carvedilol 25mg BID - Pre-op work-up per CV surgery - On PT/OT/IS - CV surgery planning CABG tomorrow, Tuesday (05/03/23). NPO after midnight 2: Hypertension A/P: - On carvedilol 25mg BID, nifedipine 60mg BID, HCTZ 25mg daily, spironolactone 25mg daily -- SUBJECTIVE -- CHIEF COMPLAINT: Multi-vessel coronary artery disease PATIENT NARRATIVE: Out of bed and in chair. On room air. Family at bedside. Seen by Dr. Gray and Dr. Connell. No acute events overnight. -REVIEW OF SYSTEMS- GENERAL: Negative for fever, malaise, fatigue. EYES: Negative for blurry vision. No diplopia. EARS/NOSE/THROAT: Negative for sore throat. No otalgia. No rhinorrhea. RESPIRATORY: Negative for dyspnea or wheeze. No cough. CARDIOVASCULAR: Negative for chest pain or palpitations. No extremity swelling. GASTROINTESTINAL: Negative for abdominal pain or nausea. No emesis. No diarrhea. GENITOURINARY: Negative for dysuria, frequency, or urgency. No gross hematuria. MUSCULOSKELETAL: Negative for joint stiffness, pain, or arthralgias. SKIN: Negative for rashes. No pruritus. NEUROLOGICAL: Negative for headache. No vertigo. Denies paresthesias. PSYCHIATRIC: Negative for specific complaints. -- OBJECTIVE -- VITALS (05/01 06:54 - 05/02 06:54): Temperature F: 98.6 Temperature C: 36.9 (36.8 - 36.9) Pulse Rate 58 (53 - 77) Respiratory rate: 16 (10 - 32) Blood pressure: 137/71 (108/56 - 158/75) Blood pressure source: Monitor I/Os (04/30 07:00 - 05/01 07:00): Net 0.00 Intake 750.00 Output 750 -EXAM- OTHER: Constitutional: Well developed, well nourished patient, in no acute distress. Derm/Integumentary: Warm and dry with no rashes, sores, or lesions. HEENT: Eyes-sclera clear and white, symmetrical w/ no lag. ENT - Palate and gums pink, mucosa moist, no pallor/cyanosis. Neck: supple with no masses, no thyromegaly, No JVD. Respiratory: Clear to auscultation. Heart: S1S2+, Regular Rate and Rhythm, No murmurs, rubs, or gallops. Gastrointestinal: + Bowel Sounds all quadrants. Soft, nontender with no masses or organomegaly; No HJR. Musculoskeletal: Equal strength in all extremities. No weakness. Neurology: Alert and oriented X 3. Calm, cooperative affect. No focal deficits. Extremities: + peripheral pulses. No clubbing, cyanosis. No lower extremity edema. -- DATA -- MEDICATIONS ONDANSETRON HCL/PF 4 MG IV Q6H PRN HEPARIN/SOD CHLOR 0.45% 71911 UNITS IV TITRATE NIFEdipine 60 MG PO Q12HR hydroCHLOROthiazide 25 MG PO DAILY GLUCAGON 1 MG IM ASDIR PRN HEPARIN SODIUM,PORCINE 3000 UNIT IV ASDIR (PRN) hydrALAZINE HCL 10 MG IV Q6HR PRN FINASTERIDE 5 MG PO BEDTIME ATORVASTATIN CALCIUM 40 MG PO BEDTIME HEPARIN PHARMACY TO MONITOR 1 EACH IV ASDIR ASPIRIN 81 MG PO DAILY SPIRONOLACTONE 25 MG PO DAILY INSULIN GLARGINE 25 UNITS SUBQ 0800 ACETAMINOPHEN 650 MG PO Q4H PRN SODIUM CHLORIDE 0.9% 1000 ML IV .Q24H DOCUSATE SODIUM 100 MG PO BID DEXTROSE 50%-WATER 25 ML IV ASDIR PRN INSULIN LISPRO 5 UNITS SUBQ AC INSULIN LISPRO 0 UNITS SUBQ C MEALS HS carvediloL 25 MG PO BID MEALS NITROGLYCERIN 0.4 MG SL Q5M PRN ONDANSETRON 4 MG PO Q6H PRN HEPARIN SODIUM,PORCINE 5000 UNIT IV ASDIR (PRN) TAMSULOSIN 0.4 MG PO BEDTIME LABS BASIC METABOLIC PANEL (05/02/23 05:36) SODIUM 136 POTASSIUM 3.9 CHLORIDE 103 CARBON DIOXIDE 26 GLUCOSE 118H H BLOOD UREA NITROGEN 9 GLOMERULAR FILTRATION RATE >=60 max estimate CREATININE 0.60L L CALCIUM 8.4 L CBC W/AUTO DIFF (05/02/23 05:36) WHITE BLOOD CELL 10.8 RED BLOOD CELL 4.89 HEMOGLOBIN 13.3L L HEMATOCRIT 38.5L L MEAN CELL VOLUME 78.7 L MEAN CELL HGB 27.2 MEAN CELL HGB CONCENTRATION 34.5 RED CELL DISTRIBUTION WIDTH 12.9 PLATELET COUNT 313 MEAN PLATELET VOLUME 9.4 NEUTROPHIL % 56.4 LYMPHOCYTE % 29.4 MONOCYTE % 9.5 H EOSINOPHIL % 3.3 BASOPHIL % 0.6 NEUTROPHIL # 6.08 LYMPHOCYTE # 3.17 MONOCYTE # 1.02 H EOSINOPHIL # 0.36 BASOPHIL # 0.06 PTT (05/02/23 00:15) THROMBOPLASTIN TIME PARTIAL 54.0 D H GLU BED (05/01/23 20:44) GLUBED 190 H PTT (05/01/23 16:06) THROMBOPLASTIN TIME PARTIAL 120.7 D*H GLU BED (05/01/23 10:42) GLUBED 273 H COVID Asymp Ag (05/01/23 10:35) COVID 19 Asymptomatic IH AG NEGATIVE CBC W/AUTO DIFF (05/01/23 09:32) WHITE BLOOD CELL 9.4 RED BLOOD CELL 5.01 HEMOGLOBIN 13.5L L HEMATOCRIT 39.1L L MEAN CELL VOLUME 78.0 L MEAN CELL HGB 26.9 L MEAN CELL HGB CONCENTRATION 34.5 RED CELL DISTRIBUTION WIDTH 12.9 PLATELET COUNT 352 MEAN PLATELET VOLUME 9.5 NEUTROPHIL % 69.2 LYMPHOCYTE % 20.1 L MONOCYTE % 6.9 EOSINOPHIL % 2.8 BASOPHIL % 0.3 NEUTROPHIL # 6.52 LYMPHOCYTE # 1.89 MONOCYTE # 0.65 EOSINOPHIL # 0.26 BASOPHIL # 0.03 PTT (05/01/23 09:32) THROMBOPLASTIN TIME PARTIAL 57.3 D H GLU BED (05/01/23 07:25) GLUBED 168 H -- ATTESTATION -- CARE ACTIVITIES / CARE COORDINATION: - I have reviewed the history and repeated the gupta elements - I have seen and examined this patient - I have reviewed the progress in the clinical course since the last examination - I have discussed the patient's condition with other members of the care team ADDITIONAL DETAIL: Plan of care discussed with Dr. Claude Connell Signed in PatientKeeper by MCKAY MEYER on 05/02/23 at 09:30 Cosigned by CLAUDE CONNELL MD on 06/09/23 at 01:22 at 0122 at 0122 ATTE NTION *EDITS and/or ADDENDA must be made in Patient Keeper for this note. * * Edits and ammendments created in [facility] are not visible * * in Patient Keeper or the legal medical record ([facility]). * [facility] #: [id number] END OF REPORT [facility] 2023-05-01 11:41:00 [facility] ([facility]) Hospitalist Progress Note REPORT #: [id number] REPORT STATUS: Signed DATE: 05/01/23 TIME: 1141 PATIENT: LUIS GUZMÁN UNIT #: [id number] ROOM #: P[facility] [place] BED: A : 55 AGE: 67 SEX: M ATTEND: Rajesh Kilgore MD ADM AUTHOR: Rajesh Kilgore MD ATTE NTION *EDITS and/or ADDENDA must be made in Patient Keeper for this note. * * Edits and ammendments created in [facility] are not visible * * in Patient Keeper or the legal medical record ([facility]). * -- ASSESSMENT AND PLAN -- GENERAL ASSESSMENT: ASSESSMENT AND PLAN: 1. Critical multivessel coronary artery disease including distal left main, 90-99%, at the origin of the left anterior descending, the origin of the circumflex, first diagonal with 99% first obtuse marginal with 80%, and a left ventricular ejection fraction of 50-55% with anteroapical hypokinesis. The patient apparently had a non-ST segment elevation myocardial infarction a few weeks ago. His disease is not amenable to percutaneous coronary intervention and he has been transferred to the [facility] for consideration of CABG by Dr. Wilfrido Gray. I will continue to hold clopidogrel and metformin. Start heparin infusion. Continue beta blockers and statins. 2. Diabetes mellitus type 2, not well controlled. Hemoglobin A1c is 8.2. Continue long-acting and short-acting insulins. 3. Hypertension, continue carvedilol and nifedipine. We will hold angiotensin receptor blockers perioperatively. 4. Benign prostatic hypertrophy. Continue finasteride and tamsulosin. 5. History of cerebrovascular accident, with minimal left-sided residual weakness. 6. Chronic kidney disease stage II. 7. Anemia, mild. 8. Subsegmental atelectasis. Incentive spirometry. ADDITIONAL COMMENTS: Critical multivessel coronary artery disease in involving the distal left main. Plans for CABG 05/[address] Wilfrido Gray. -- SUBJECTIVE -- HPI: This 67-year-old gentleman has a past medical history significant for insulin-dependent diabetes with neuropathy, CVA, hypertension, hyperlipidemia and AV fistula repair in the neck. The patient has had complaints of progressive fatigue and tiredness and was recently admitted to an outside hospital with a viral illness/pneumonia. Troponin was found to be elevated and echocardiogram showed dilated cardiomyopathy and wall motion abnormalities consistent with stress cardiomyopathy or disease. The patient was admitted for selective coronary angiogram by Dr. Katya Cruz on 04/28/2023 to [facility]. It showed critical distal left main disease involving the origin of the left anterior descending, 99%, distal left main 90%, ostium in origin of the left circumflex 90% and a big ramus intermedius with 99% stenosis, first obtuse marginal is small with 80% focal disease, left ventricular ejection fraction 50-55% with anteroapical hypokinesis and end-diastolic pressure of 25. With these critical findings, the patient was transferred to the [facility] for consideration of urgent CABG by Dr. Wilfrido Gray. PATIENT NARRATIVE: 04/29: No acute events overnight. No chest pain or shortness of breath. Therapeutic PTT on heparin. Plans for CABG with Dr. Wilfrido Gray week of 05/02. CT shows: Bandlike scarring versus subsegmental atelectasis at the bilateral lower lobes. Coronary artery calcifications are noted. No cardiomegaly. -Carotid Dopplers negative for any hemodynamically significant lesion. Vein mapping done. 04/30: on heparin infusion, PTT therapeutic. last dose of clopidogrel 04/25; Intermittent chest pain. Blood sugars not well-controlled, I have optimized the regimen. for CABG 05/[address] Wilfrido Gray. 05/01: 2D echo shows Left ventricle: The cavity size is normal. Wall thickness is mildly increased. Systolic function is normal. The estimated ejection fraction is 50-54%. Wall motion is normal; there are no regional wall motion abnormalities. Doppler parameters are consistent with restrictive physiology, indicative of decreased left ventricular diastolic compliance and/or increased left atrial pressure. Left atrium: The atrium is mildly dilated. -Intermittent chest pain and shortness of breath In good spirits otherwise. Looking forward to CABG 05/03/[address] Wilfrido Gray. -REVIEW OF SYSTEMS- GENERAL: CONSTITUTIONAL: Fatigue and tiredness. No fever or chills. No weight gain or weight loss. HEENT: Denies any cough, congestion, or runny nose. CARDIOPULMONARY: Shortness of breath. No chest pain. GASTROINTESTINAL: Denies any abdominal pain, nausea, vomiting, diarrhea or constipation. GENITOURINARY: Denies any dysuria or discharge. NEUROLOGICAL: Denies any headache, dizziness or syncope. -- OBJECTIVE -- VITALS (04/30 11:41 - 05/01 11:41): Temperature F: 97.9 Temperature C: 36.9 (36.5 - 37.1) Temperature source: Oral Pulse Rate 57 (53 - 64) Respiratory rate: 19 (10 - 35) Blood pressure: 136/65 (112/56 - 153/72) Blood pressure source: Monitor I/Os (04/30 07:00 - 05/01 07:00): Net 0.00 Intake 750.00 Output 750 -EXAM- GENERAL: GENERAL: Elderly male, not in any acute distress. VITAL SIGNS: oxygen saturation is 97% on room air. Weight is 78.2 kilograms. Body mass index 27. HEENT: Head is atraumatic. Pupils are reactive to light and accommodation. Extraocular muscles intact. NECK: Supple. No thyromegaly. No JVD. CARDIOVASCULAR: Regular rate and rhythm. LUNGS: Clear to auscultation. ABDOMEN: Soft, nontender. EXTREMITIES: No edema, cyanosis or clubbing. Pedal pulses palpable. NEUROLOGIC: No focal deficit. -- DATA -- MEDICATIONS ONDANSETRON HCL/PF 4 MG IV Q6H PRN NIFEdipine 60 MG PO Q12HR hydroCHLOROthiazide 25 MG PO DAILY GLUCAGON 1 MG IM ASDIR PRN hydrALAZINE HCL 10 MG IV Q6HR PRN FINASTERIDE 5 MG PO BEDTIME ATORVASTATIN CALCIUM 40 MG PO BEDTIME HEPARIN PHARMACY TO MONITOR 1 EACH IV ASDIR SPIRONOLACTONE 25 MG PO DAILY INSULIN GLARGINE 25 UNITS SUBQ 0800 ACETAMINOPHEN 650 MG PO Q4H PRN SODIUM CHLORIDE 0.9% 1000 ML IV .Q24H DOCUSATE SODIUM 100 MG PO BID DEXTROSE 50%-WATER 25 ML IV ASDIR PRN INSULIN LISPRO 5 UNITS SUBQ AC ONDANSETRON 4 MG PO Q6H PRN HEPARIN/SOD CHLOR 0.45% 44772 UNITS IV TITRATE HEPARIN SODIUM,PORCINE 3000 UNIT IV ASDIR (PRN) ASPIRIN 81 MG PO DAILY INSULIN LISPRO 0 UNITS SUBQ C MEALS HS carvediloL 25 MG PO BID MEALS NITROGLYCERIN 0.4 MG SL Q5M PRN HEPARIN SODIUM,PORCINE 5000 UNIT IV ASDIR (PRN) TAMSULOSIN 0.4 MG PO BEDTIME LABS GLU BED (05/01/23 10:42) GLUBED 273 H CBC W/AUTO DIFF (05/01/23 09:32) WHITE BLOOD CELL 9.4 RED BLOOD CELL 5.01 HEMOGLOBIN 13.5L L HEMATOCRIT 39.1L L MEAN CELL VOLUME 78.0 L MEAN CELL HGB 26.9 L MEAN CELL HGB CONCENTRATION 34.5 RED CELL DISTRIBUTION WIDTH 12.9 PLATELET COUNT 352 MEAN PLATELET VOLUME 9.5 NEUTROPHIL % 69.2 LYMPHOCYTE % 20.1 L MONOCYTE % 6.9 EOSINOPHIL % 2.8 BASOPHIL % 0.3 NEUTROPHIL # 6.52 LYMPHOCYTE # 1.89 MONOCYTE # 0.65 EOSINOPHIL # 0.26 BASOPHIL # 0.03 PTT (05/01/23 09:32) THROMBOPLASTIN TIME PARTIAL 57.3 D H GLU BED (05/01/23 07:25) GLUBED 168 H PTT (05/01/23 02:24) THROMBOPLASTIN TIME PARTIAL 40.8 D H GLU BED (04/30/23 20:46) GLUBED 171 H PTT (04/30/23 19:01) THROMBOPLASTIN TIME PARTIAL 108.6 D*H GLU BED (04/30/23 16:08) GLUBED 115 H COMPREHENSIVE METABOLIC PANEL (04/30/23 12:07) SODIUM 134 L POTASSIUM 4.1 CHLORIDE 100 CARBON DIOXIDE 28 GLUCOSE 191 H BLOOD UREA NITROGEN 10 GLOMERULAR FILTRATION RATE >=60 max estimate CREATININE 0.70 TOTAL PROTEIN 6.8 ALBUMIN 4.1 CALCIUM 9.2 BILIRUBIN TOTAL 0.8 SGOT/AST 16 SGPT/ALT 34 ALKALINE PHOSPHATASE 109.0 PTT (04/30/23 12:00) THROMBOPLASTIN TIME PARTIAL 54.0 D H -- QUALITY -- -MEDICATIONS- - I attest that the foregoing medication list in the medical record is true, accurate, and complete to the best of my knowledge. -- ATTESTATION -- CARE ACTIVITIES / CARE COORDINATION: - I have reviewed the history and repeated the gupta elements - I have seen and examined this patient - I have reviewed the progress in the clinical course since the last examination - I have discussed the patient's condition with other members of the care team Signed in PatientKeeper by Rajesh Kilgore MD on 05/01/23 at 17:43 at 1743 ATTE NTION *EDITS and/or ADDENDA must be made in Patient Keeper for this note. * * Edits and ammendments created in [facility] are not visible * * in Patient Keeper or the legal medical record ([facility]). * RPT #: [id number] END OF REPORT [facility] 2023-05-01 08:00:00 [facility] ([facility]) Cardiology Progress Notes REPORT #: [id number] REPORT STATUS: Signed DATE: 05/01/23 TIME: 08 PATIENT: LUIS GUZMÁN UNIT #: [id number] [facility] AGE: 67 SEX: M ATTEND: Rajesh Kilgore MD ADM AUTHOR: Mckay Meyer ATTE NTION *EDITS and/or ADDENDA must be made in Patient Keeper for this note. * * Edits and ammendments created in [employer] are not visible * * in Patient Keeper or the legal medical record ([facility]). * -- CO-SIGNATURE -- COMMENTS: Seen and examined with ZOHRA Meyer. PE: NAD, alert and awake RRR, no m/g/r CTAB 67-year-old male with a past medical history of diabetes, hypertension, hyperlipidemia, and CVA who was transferred for CABG evaluation. The patient underwent left heart catheterization on April 28, 2023 at [facility] that demonstrated severe distal left main disease, severe LAD disease 99%, 90% ostial left circumflex, and 99% ramus intermedius. He has preserved ejection fraction on last echocardiogram. Repeat echocardiogram shows ejection fraction of 50 to 54% with grade 3 diastolic dysfunction. Will continue IV heparin. Will plan for CABG surgery this week, CV surgery is following. Signed in PatientKeeper by CLAUDE CONNELL MD on 06/09/23 at 00:36 -- ASSESSMENT AND PLAN -- PROBLEMS: 1: Coronary artery disease A/P: The patient is a 67-year-old gentleman who is referred by Dr. Katya Cruz and who was having worsening symptoms of fatigue and possibly chest discomfort. He has a past medical history of diabetes (on insulin, HgbA1c 8.2), hypertension, hyperlipidemia, CVA with residual left-sided weakness, AV fistula repair in the neck, and who underwent a selective coronary angiogram on 04/28/2023 at [facility] demonstrating distal left main disease (90%), LAD (99%), ostial LCx (90%), big RI (99%), OM1 (small, 80%), LVEF 50-55%. He was transferred here for urgent bypass surgery with Dr. Wilfrido Gray. Dr. Connell is providing coverage for Dr. Juan M Wei. - Echo (04/29/23) - EF 50-54%, restrictive physiology, decreased LV diastolic compliance - Hemodynamically stable - Hold losartan given upcoming surgery - On IV heparin - Continue aspirin, atorvastatin 40mg daily, carvedilol 25mg BID - Pre-op work-up per CV surgery - On PT/OT/IS - CV surgery planning CABG the week of 05/02/23, likely on Tuesday (05/03/23) 2: Hypertension A/P: - Continue carvedilol 25mg BID, nifedipine 60mg BID, HCTZ 25mg daily, spironolactone 25mg daily -- SUBJECTIVE -- CHIEF COMPLAINT: Multi-vessel coronary artery disease PATIENT NARRATIVE: Out of bed and in chair. Denies complaints today. On IV heparin. Family member at bedside. No acute events overnight. Seen by Dr. Gray and Dr. Connell today. -REVIEW OF SYSTEMS- GENERAL: Negative for fever, malaise, fatigue. EYES: Negative for blurry vision. No diplopia. EARS/NOSE/THROAT: Negative for sore throat. No otalgia. No rhinorrhea. RESPIRATORY: Negative for dyspnea or wheeze. No cough. CARDIOVASCULAR: Negative for chest pain or palpitations. No extremity swelling. GASTROINTESTINAL: Negative for abdominal pain or nausea. No emesis. No diarrhea. GENITOURINARY: Negative for dysuria, frequency, or urgency. No gross hematuria. MUSCULOSKELETAL: Negative for joint stiffness, pain, or arthralgias. SKIN: Negative for rashes. No pruritus. NEUROLOGICAL: Negative for headache. No vertigo. Denies paresthesias. PSYCHIATRIC: Negative for specific complaints. -- OBJECTIVE -- VITALS (04/30 07:07 - 05/01 07:07): Temperature F: 97.9 (97.8 - 97.9) Temperature C: 37.0 (36.5 - 37.1) Temperature source: Oral Pulse Rate 60 (53 - 67) Respiratory rate: 10 (10 - 35) Blood pressure: 121/62 (112/56 - 153/78) Blood pressure source: Monitor I/Os (04/30 07:00 - 05/01 07:00): Net 0.00 Intake 750.00 Output 750 -EXAM- OTHER: Constitutional: Well developed, well nourished patient, in no acute distress. Derm/Integumentary: Warm and dry with no rashes, sores, or lesions. HEENT: Eyes-sclera clear and white, symmetrical w/ no lag. ENT - Palate and gums pink, mucosa moist, no pallor/cyanosis. Neck: supple with no masses, no thyromegaly, No JVD. Respiratory: Clear to auscultation. Heart: S1S2+, Regular Rate and Rhythm, No murmurs, rubs, or gallops. Gastrointestinal: + Bowel Sounds all quadrants. Soft, nontender with no masses or organomegaly; No HJR. Musculoskeletal: Equal strength in all extremities. No weakness. Neurology: Alert and oriented X 3. Calm, cooperative affect. No focal deficits. Extremities: + peripheral pulses. No clubbing, cyanosis. No lower extremity edema. -- DATA -- MEDICATIONS ONDANSETRON HCL/PF 4 MG IV Q6H PRN NIFEdipine 60 MG PO Q12HR hydroCHLOROthiazide 25 MG PO DAILY GLUCAGON 1 MG IM ASDIR PRN hydrALAZINE HCL 10 MG IV Q6HR PRN FINASTERIDE 5 MG PO BEDTIME ATORVASTATIN CALCIUM 40 MG PO BEDTIME HEPARIN PHARMACY TO MONITOR 1 EACH IV ASDIR SPIRONOLACTONE 25 MG PO DAILY INSULIN GLARGINE 25 UNITS SUBQ 0800 ACETAMINOPHEN 650 MG PO Q4H PRN SODIUM CHLORIDE 0.9% 1000 ML IV .Q24H DOCUSATE SODIUM 100 MG PO BID DEXTROSE 50%-WATER 25 ML IV ASDIR PRN INSULIN LISPRO 5 UNITS SUBQ AC ONDANSETRON 4 MG PO Q6H PRN HEPARIN/SOD CHLOR 0.45% 51411 UNITS IV TITRATE HEPARIN SODIUM,PORCINE 3000 UNIT IV ASDIR (PRN) ASPIRIN 81 MG PO DAILY INSULIN LISPRO 0 UNITS SUBQ C MEALS HS carvediloL 25 MG PO BID MEALS NITROGLYCERIN 0.4 MG SL Q5M PRN HEPARIN SODIUM,PORCINE 5000 UNIT IV ASDIR (PRN) TAMSULOSIN 0.4 MG PO BEDTIME LABS PTT (05/01/23 02:24) THROMBOPLASTIN TIME PARTIAL 40.8 D H GLU BED (04/30/23 20:46) GLUBED 171 H PTT (04/30/23 19:01) THROMBOPLASTIN TIME PARTIAL 108.6 D*H GLU BED (04/30/23 16:08) GLUBED 115 H COMPREHENSIVE METABOLIC PANEL (04/30/23 12:07) SODIUM 134 L POTASSIUM 4.1 CHLORIDE 100 CARBON DIOXIDE 28 GLUCOSE 191 H BLOOD UREA NITROGEN 10 GLOMERULAR FILTRATION RATE >=60 max estimate CREATININE 0.70 TOTAL PROTEIN 6.8 ALBUMIN 4.1 CALCIUM 9.2 BILIRUBIN TOTAL 0.8 SGOT/AST 16 SGPT/ALT 34 ALKALINE PHOSPHATASE 109.0 PTT (04/30/23 12:00) THROMBOPLASTIN TIME PARTIAL 54.0 D H GLU BED (04/30/23 10:28) GLUBED 280 H GLU BED (04/30/23 07:35) GLUBED 265 H -- ATTESTATION -- CARE ACTIVITIES / CARE COORDINATION: - I have reviewed the history and repeated the gupta elements - I have seen and examined this patient - I have reviewed the progress in the clinical course since the last examination - I have discussed the patient's condition with other members of the care team ADDITIONAL DETAIL: Plan of care discussed with Dr. Claude Connell Signed in PatientKeeper by MCKAY MEYER on 05/01/23 at 12:08 Cosigned by CLAUDE CONNELL MD on 06/09/23 at 00:36 at 0036 at 0036 ATTE NTION *EDITS and/or ADDENDA must be made in Patient Keeper for this note. * * Edits and ammendments created in [employer] are not visible * * in Patient Keeper or the legal medical record ([facility]). * RPT #: [id number] END OF REPORT [facility] 2023-04-30 21:50:00 [id number] [facility] [address] [id number] PATIENT NAME: LUIS GUZMÁN ADMIT DATE: 04/28/23 ACCOUNT NO: [id number] ROOM NO: [id number] AGE: 67 REPORT TYPE: eECHOCARDIOGRAM REPORT SEX: M ADMITTING PHYSICIAN: Rajesh Kilgore MD ATTENDING PHYSICIAN: Rajesh Kilgore MD *[facility]* [address] [place] [address] Transthoracic Echocardiogram Patient: Luis Guzmán Study Date: 04/29/2023 BP: URN: [id number] Location: : 1955 Age: 67 Gender: M Height: 67 in / 170.2 cm Weight: 172 lb / 78 kg BMI/BSA: 26.9 kg/m 2 / 1.94 m 2 *Ordering Physician: * Reyna OrtegaInterpreting Physician: * Juan M Wei M.D. *College Advisor: * Catalina Patrick Indications: PREOP CABG. Study data: Transthoracic echocardiogram. Complete 2D, complete spectral Doppler, and color Doppler. Location: Bedside. Patient room number: 402. Findings Left ventricle: The cavity size is normal. Wall thickness is mildly increased. Systolic function is normal. The estimated ejection fraction is 50-54%. Wall motion is normal; there are no regional wall motion abnormalities. Doppler parameters are consistent with restrictive physiology, indicative of decreased left ventricular diastolic compliance and/or increased left atrial pressure. Right ventricle: The cavity size is normal. Systolic function is normal. Left atrium: The atrium is mildly dilated. PATIENT NAME: LUIS GUZMÁN Right atrium: The atrium is normal in size. Aorta: Aortic root: The root is normal-sized. Aortic valve: The valve is trileaflet. The leaflets are mildly calcified. There is no evidence of stenosis. There is trivial regurgitation. Mitral valve: The valve is structurally normal. There is no evidence of stenosis. There is mild regurgitation. Tricuspid valve: The valve is structurally normal. There is trivial regurgitation. Pulmonic valve: The valve is structurally normal. There is no regurgitation. Pericardium: There is no pericardial effusion. Pulmonary arteries: The main pulmonary artery is normal-sized. Systemic veins: Inferior vena cava: The IVC is normal-sized. Measurements Left ventricle Value Ref JESSICA, LAX 5.0 cm 4.2 - 5.8 ESD, LAX 3.7 cm 2.5 - 4.0 FS, LAX 26 % 25 - 43 JESSICA major ax, A2C 8.8 cm --------- ESD major ax, A2C 7.0 cm --------- IVS, ED 1.3 cm 0.6 - 1.0 IVS, ES 1.9 cm --------- ESD 3.7 cm 2.5 - 4.0 FS 26 % 25 - 43 PW, ED 1.2 cm 0.6 - 1.0 PW, ES 1.6 cm --------- IVS/PW, ED 1.05 --------- EF 51 % 52 - 72 EF, MM on 2D Teich. 51 % >=55 E', lat kai, TDI 11.4 cm/sec >=10.0 E/e', lat kai, TDI 9 <=13 E', med kai, TDI 6.5 cm/sec >=7.0 E/e', med kia, TDI 16 --------- E', avg, TDI 8.9 cm/sec --------- E/e', avg, TDI 12 <=14 LVOT Value Ref Diam, S 2.06 cm --------- Area 3.3 cm 2 --------- Peak neha, S 1 m/sec --------- Mean neha, S 0.67 m/sec --------- VTI, S 20.8 cm --------- Peak grad, S 4 mm Hg --------- Mean grad, S 2 mm Hg --------- SV 69 ml --------- SV/bsa 36 ml/m 2 --------- Left atrium Value Ref LA ID 4.2 cm --------- PATIENT NAME: LUIS GUZMÁN AP dim, ES 4.2 cm 3.0 - 4.0 AP dim ES, LAX 4.2 cm 3.0 - 4.0 SI dim ES, LAX 4.2 cm --------- Vol/bsa, S 39 ml/m 2 16 - 34 Vol, ES, 2-p 78 ml --------- Vol/bsa, ES, 2-p 40 ml/m 2 16 - 34 LA/Ao root ratio 1.06 --------- AP dim, ES MM 4.2 cm 3.0 - 4.0 LA/Ao root ratio, MM 1 --------- Aortic valve Value Ref Peak v, S 1.9 m/sec --------- Mean v, S 1.29 m/sec --------- VTI, S 37.1 cm --------- Mean grad, S 7 mm Hg --------- Peak grad, S 14.2 mm Hg --------- LVOT/AV, VTI ratio 0.56 --------- EMILY, VTI 1.87 cm 2 --------- LVOT/AV, Vpeak ratio 0.53 --------- EMILY, Vmax 1.77 cm 2 --------- Mitral valve Value Ref Mean v, D 0.54 m/sec --------- Peak E 0.09 m/sec --------- Peak A 0.75 m/sec --------- VTI leaflet coapt 40.9 cm --------- MiV/LVOT VTI 2.0 --------- Decel time 237 ms --------- PHT 76 ms --------- Mean grad, D 1 mm Hg --------- Peak grad, D 4.4 mm Hg --------- Peak E/A ratio 1.42 --------- MVA, PHT 2.9 cm 2 --------- Aortic root Value Ref Root diam 4.0 cm 2.6 - 4.1 Root diam, ED MM 4.2 cm --------- Ascending aorta Value Ref AAo AP diam, S 3.7 cm --------- Systemic veins Value Ref Estimated CVP 3 mm Hg --------- Conclusions Summary: 1. Left ventricle: The cavity size is normal. Wall thickness is mildly increased. Systolic function is normal. The estimated ejection fraction is 50-54%. Wall motion is normal; there are no regional wall motion abnormalities. Doppler parameters are consistent with restrictive physiology, indicative of decreased left ventricular diastolic compliance PATIENT NAME: LUIS GZUMÁN and/or increased left atrial pressure. 2. Left atrium: The atrium is mildly dilated. Electronically signed by Juan M Wei M.D. 04/30/2023 21:50 at 2150 PATIENT NAME: LUIS GUZMÁN [facility] 2023-04-30 13:20:00 [facility] ([facility]) Hospitalist Progress Note REPORT #: [id number] REPORT STATUS: Signed DATE: 04/30/23 TIME: 1320 PATIENT: LUIS GUZMÁN UNIT #: [id number] ROOM #: P.0402 BED: A : 55 AGE: 67 SEX: M ATTEND: Rajesh Kilgore MD ADM AUTHOR: Rajesh Kilgore MD ATTE NTION *EDITS and/or ADDENDA must be made in Patient Keeper for this note. * * Edits and ammendments created in [employer] are not visible * * in Patient Keeper or the legal medical record ([facility]). * -- ASSESSMENT AND PLAN -- GENERAL ASSESSMENT: ASSESSMENT AND PLAN: 1. Critical multivessel coronary artery disease including distal left main, 90-99%, at the origin of the left anterior descending, the origin of the circumflex, first diagonal with 99% first obtuse marginal with 80%, and a left ventricular ejection fraction of 50-55% with anteroapical hypokinesis. The patient apparently had a non-ST segment elevation myocardial infarction a few weeks ago. His disease is not amenable to percutaneous coronary intervention and he has been transferred to the [facility] for consideration of CABG by Dr. Wilfrido Gray. I will continue to hold clopidogrel and metformin. Start heparin infusion. Continue beta blockers and statins. 2. Diabetes mellitus type 2, not well controlled. Hemoglobin A1c is 8.2. Continue long-acting and short-acting insulins. 3. Hypertension, continue carvedilol and nifedipine. We will hold angiotensin receptor blockers perioperatively. 4. Benign prostatic hypertrophy. Continue finasteride and tamsulosin. 5. History of cerebrovascular accident, with minimal left-sided residual weakness. 6. Chronic kidney disease stage II. 7. Anemia, mild. 8. Subsegmental atelectasis. Incentive spirometry. ADDITIONAL COMMENTS: Critical multivessel coronary artery disease in involving the distal left main. Plans for CABG 05/[address] Wilfrido Gray. -- SUBJECTIVE -- HPI: This 67-year-old gentleman has a past medical history significant for insulin-dependent diabetes with neuropathy, CVA, hypertension, hyperlipidemia and AV fistula repair in the neck. The patient has had complaints of progressive fatigue and tiredness and was recently admitted to an outside hospital with a viral illness/pneumonia. Troponin was found to be elevated and echocardiogram showed dilated cardiomyopathy and wall motion abnormalities consistent with stress cardiomyopathy or disease. The patient was admitted for selective coronary angiogram by Dr. Katya Cruz on 04/28/2023 to [facility]. It showed critical distal left main disease involving the origin of the left anterior descending, 99%, distal left main 90%, ostium in origin of the left circumflex 90% and a big ramus intermedius with 99% stenosis, first obtuse marginal is small with 80% focal disease, left ventricular ejection fraction 50-55% with anteroapical hypokinesis and end-diastolic pressure of 25. With these critical findings, the patient was transferred to the [facility] for consideration of urgent CABG by Dr. Wilfrido Gray. PATIENT NARRATIVE: 04/29: No acute events overnight. No chest pain or shortness of breath. Therapeutic PTT on heparin. Plans for CABG with Dr. Wilfrido Gray week of 05/02. CT shows: Bandlike scarring versus subsegmental atelectasis at the bilateral lower lobes. Coronary artery calcifications are noted. No cardiomegaly. -Carotid Dopplers negative for any hemodynamically significant lesion. Vein mapping done. 04/30: on heparin infusion, PTT therapeutic. last dose of clopidogrel 04/25; Intermittent chest pain. Blood sugars not well-controlled, I have optimized the regimen. for CABG 05/[address] Wilfrido Gray. -REVIEW OF SYSTEMS- GENERAL: CONSTITUTIONAL: Fatigue and tiredness. No fever or chills. No weight gain or weight loss. HEENT: Denies any cough, congestion, or runny nose. CARDIOPULMONARY: Shortness of breath. No chest pain. GASTROINTESTINAL: Denies any abdominal pain, nausea, vomiting, diarrhea or constipation. GENITOURINARY: Denies any dysuria or discharge. NEUROLOGICAL: Denies any headache, dizziness or syncope. -- OBJECTIVE -- VITALS (04/29 13:20 - 04/30 13:20): Temperature F: 97.8 (97.8 - 97.9) Temperature C: 36.5 (36.4 - 36.8) Temperature source: Oral Pulse Rate 57 (50 - 67) Respiratory rate: 17 (12 - 29) Blood pressure: 148/70 (124/61 - 156/98) Blood pressure source: Monitor I/Os (04/29 07:00 - 04/30 07:00): Net -300 Output 300 -EXAM- GENERAL: GENERAL: Elderly male, not in any acute distress. VITAL SIGNS: oxygen saturation is 97% on room air. Weight is 78.2 kilograms. Body mass index 27. HEENT: Head is atraumatic. Pupils are reactive to light and accommodation. Extraocular muscles intact. NECK: Supple. No thyromegaly. No JVD. CARDIOVASCULAR: Regular rate and rhythm. LUNGS: Clear to auscultation. ABDOMEN: Soft, nontender. EXTREMITIES: No edema, cyanosis or clubbing. Pedal pulses palpable. NEUROLOGIC: No focal deficit. -- DATA -- MEDICATIONS ONDANSETRON HCL/PF 4 MG IV Q6H PRN SODIUM CHLORIDE 0.9% 1000 ML IV .Q24H NIFEdipine 60 MG PO Q12HR hydroCHLOROthiazide 25 MG PO DAILY GLUCAGON 1 MG IM ASDIR PRN hydrALAZINE HCL 10 MG IV Q6HR PRN FINASTERIDE 5 MG PO BEDTIME ATORVASTATIN CALCIUM 40 MG PO BEDTIME HEPARIN PHARMACY TO MONITOR 1 EACH IV ASDIR SPIRONOLACTONE 25 MG PO DAILY ACETAMINOPHEN 650 MG PO Q4H PRN SODIUM CHLORIDE 0.9% 1000 ML IV .Q24H DOCUSATE SODIUM 100 MG PO BID morphine SULFATE 2 MG IV Q3H PRN DEXTROSE 50%-WATER 25 ML IV ASDIR PRN ONDANSETRON 4 MG PO Q6H PRN HEPARIN/SOD CHLOR 0.45% 16400 UNITS IV TITRATE INSULIN GLARGINE 20 UNITS SUBQ 0800 HEPARIN SODIUM,PORCINE 3000 UNIT IV ASDIR (PRN) ASPIRIN 81 MG PO DAILY INSULIN LISPRO 0 UNITS SUBQ C MEALS HS carvediloL 25 MG PO BID MEALS NITROGLYCERIN 0.4 MG SL Q5M PRN HEPARIN SODIUM,PORCINE 5000 UNIT IV ASDIR (PRN) TAMSULOSIN 0.4 MG PO BEDTIME LABS COMPREHENSIVE METABOLIC PANEL (04/30/23 12:07) SODIUM 134 L POTASSIUM 4.1 CHLORIDE 100 CARBON DIOXIDE 28 GLUCOSE 191 H BLOOD UREA NITROGEN 10 GLOMERULAR FILTRATION RATE >=60 max estimate CREATININE 0.70 TOTAL PROTEIN 6.8 ALBUMIN 4.1 CALCIUM 9.2 BILIRUBIN TOTAL 0.8 SGOT/AST 16 SGPT/ALT 34 ALKALINE PHOSPHATASE 109.0 PTT (04/30/23 12:00) THROMBOPLASTIN TIME PARTIAL 54.0 D H GLU BED (04/30/23 10:28) GLUBED 280 H GLU BED (04/30/23 07:35) GLUBED 265 H CBC W/AUTO DIFF (04/30/23 03:58) WHITE BLOOD CELL 10.2 RED BLOOD CELL 4.88 HEMOGLOBIN 13.3L L HEMATOCRIT 38.5L L MEAN CELL VOLUME 78.9 L MEAN CELL HGB 27.3 MEAN CELL HGB CONCENTRATION 34.5 RED CELL DISTRIBUTION WIDTH 12.7 L PLATELET COUNT 330 MEAN PLATELET VOLUME 9.5 NEUTROPHIL % 56.8 LYMPHOCYTE % 29.8 MONOCYTE % 8.4 EOSINOPHIL % 3.6 BASOPHIL % 0.5 NEUTROPHIL # 5.80 LYMPHOCYTE # 3.05 MONOCYTE # 0.86 H EOSINOPHIL # 0.37 BASOPHIL # 0.05 PTT (04/30/23 03:58) THROMBOPLASTIN TIME PARTIAL 109.7 D*H GLU BED (04/29/23 20:34) GLUBED 249 H GLU BED (04/29/23 16:25) GLUBED 206 H PTT (04/29/23 13:53) THROMBOPLASTIN TIME PARTIAL 90.2 H -- QUALITY -- -MEDICATIONS- - I attest that the foregoing medication list in the medical record is true, accurate, and complete to the best of my knowledge. -- ATTESTATION -- CARE ACTIVITIES / CARE COORDINATION: - I have reviewed the history and repeated the gupta elements - I have seen and examined this patient - I have reviewed the progress in the clinical course since the last examination - I have discussed the patient's condition with other members of the care team Signed in PatientKeeper by Rajesh Kilgore MD on 04/30/23 at 16:12 at 1612 ATTE NTION *EDITS and/or ADDENDA must be made in Patient Keeper for this note. * * Edits and ammendments created in [facility] are not visible * * in Patient Keeper or the legal medical record ([facility]). * [facility] #: [id number] END OF REPORT [facility] 2023-04-30 08:00:00 [facility] ([facility]) Cardiology Progress Notes REPORT #: [id number] REPORT STATUS: Signed DATE: 04/30/23 TIME: 0800 PATIENT: LUIS GUZMÁN UNIT #: [id number] ROOM #: P.0420 BED: A : 55 AGE: 67 SEX: M ATTEND: Rajesh Kilgore MD ADM AUTHOR: Mckay Meyer ATTE NTION *EDITS and/or ADDENDA must be made in Patient Keeper for this note. * * Edits and ammendments created in [employer] are not visible * * in Patient Keeper or the legal medical record ([facility]). * -- CO-SIGNATURE -- COMMENTS: Seen and examined with ZOHRA Meyer. PE: NAD, alert and awake RRR, no m/g/r CTAB 67-year-old male with a past medical history of diabetes, hypertension, hyperlipidemia, and CVA who was transferred for CABG evaluation. The patient underwent left heart catheterization on April 28, 2023 at [facility] that demonstrated severe distal left main disease, severe LAD disease 99%, 90% ostial left circumflex, and 99% ramus intermedius. He has preserved ejection fraction on last echocardiogram. Will plan to repeat echocardiogram. Will continue IV heparin. Will plan for CABG surgery this week, CV surgery is following. Signed in PatientKeeper by CLAUDE CONNELL MD on 06/08/23 at 16:35 -- ADDITIONAL COMMENTS -- COMMENTS: Correction: the patient is a 67-year-old gentleman, not a 61-year-old gentleman Signed in PatientKeeper by MCKAY MEYER on 05/01/23 at 12:09 -- ASSESSMENT AND PLAN -- PROBLEMS: 1: Coronary artery disease A/P: The patient is a 61-year-old gentleman who is referred by Dr. Katya Cruz and who was having worsening symptoms of fatigue and possibly chest discomfort. He has a past medical history of diabetes (on insulin, HgbA1c 8.2), hypertension, hyperlipidemia, CVA with residual left-sided weakness, AV fistula repair in the neck, and who underwent a selective coronary angiogram on 04/28/2023 at [facility] demonstrating distal left main disease (90%), LAD (99%), ostial LCx (90%), big RI (99%), OM1 (small, 80%), LVEF 50-55%. He was transferred here for urgent bypass surgery with Dr. Wilfrido Gray. Dr. Connell is providing coverage for Dr. Juan M Wei. - Echo completed - Hemodynamically stable - Hold losartan given upcoming surgery - On IV heparin - On aspirin, atorvastatin 40mg daily, carvedilol 25mg BID - Pre-op work-up per CV surgery - On PT/OT/IS - CV surgery planning CABG the week of 05/02/23, likely on Tuesday (05/03/23) 2: Hypertension A/P: - On carvedilol, nifedipine 60mg BID, HCTZ 25mg daily, spironolactone 25mg daily -- SUBJECTIVE -- CHIEF COMPLAINT: Multi-vessel coronary artery disease PATIENT NARRATIVE: Out of bed and in chair. He states has intermitted chest pain. On IV heparin. Seen by Dr. Gray and Dr. Connell today. No acute events overnight. -REVIEW OF SYSTEMS- GENERAL: Negative for fever, malaise, fatigue. EYES: Negative for blurry vision. No diplopia. EARS/NOSE/THROAT: Negative for sore throat. No otalgia. No rhinorrhea. RESPIRATORY: Negative for dyspnea or wheeze. No cough. CARDIOVASCULAR: + intermittent chest pain. No palpitations. No extremity swelling. GASTROINTESTINAL: Negative for abdominal pain or nausea. No emesis. No diarrhea. GENITOURINARY: Negative for dysuria, frequency, or urgency. No gross hematuria. MUSCULOSKELETAL: Negative for joint stiffness, pain, or arthralgias. SKIN: Negative for rashes. No pruritus. NEUROLOGICAL: Negative for headache. No vertigo. Denies paresthesias. PSYCHIATRIC: Negative for specific complaints. -- OBJECTIVE -- VITALS (04/29 06:49 - 04/30 06:49): Temperature C: 36.5 (36.4 - 36.9) Pulse Rate 51 (50 - 61) Respiratory rate: 16 (12 - 28) Blood pressure: 136/64 (124/59 - 175/98) Blood pressure source: Monitor I/Os (04/28 07:00 - 04/29 07:00): Net 150 Intake 150 -EXAM- OTHER: Constitutional: Well developed, well nourished patient, in no acute distress. Derm/Integumentary: Warm and dry with no rashes, sores, or lesions. HEENT: Eyes-sclera clear and white, symmetrical w/ no lag. ENT - Palate and gums pink, mucosa moist, no pallor/cyanosis. Neck: supple with no masses, no thyromegaly, No JVD. Respiratory: Clear to auscultation. Heart: S1S2+, Regular Rate and Rhythm, No murmurs, rubs, or gallops. Gastrointestinal: + Bowel Sounds all quadrants. Soft, nontender with no masses or organomegaly; No HJR. Musculoskeletal: Equal strength in all extremities. No weakness. Neurology: Alert and oriented X 3. Calm, cooperative affect. No focal deficits. Extremities: + peripheral pulses. No clubbing, cyanosis. No lower extremity edema. -- DATA -- MEDICATIONS ONDANSETRON HCL/PF 4 MG IV Q6H PRN SODIUM CHLORIDE 0.9% 1000 ML IV .Q24H NIFEdipine 60 MG PO Q12HR hydroCHLOROthiazide 25 MG PO DAILY GLUCAGON 1 MG IM ASDIR PRN hydrALAZINE HCL 10 MG IV Q6HR PRN FINASTERIDE 5 MG PO BEDTIME ATORVASTATIN CALCIUM 40 MG PO BEDTIME HEPARIN PHARMACY TO MONITOR 1 EACH IV ASDIR SPIRONOLACTONE 25 MG PO DAILY ACETAMINOPHEN 650 MG PO Q4H PRN SODIUM CHLORIDE 0.9% 1000 ML IV .Q24H DOCUSATE SODIUM 100 MG PO BID morphine SULFATE 2 MG IV Q3H PRN DEXTROSE 50%-WATER 25 ML IV ASDIR PRN ONDANSETRON 4 MG PO Q6H PRN HEPARIN/SOD CHLOR 0.45% 57288 UNITS IV TITRATE INSULIN GLARGINE 20 UNITS SUBQ 0800 HEPARIN SODIUM,PORCINE 3000 UNIT IV ASDIR (PRN) ASPIRIN 81 MG PO DAILY INSULIN LISPRO 0 UNITS SUBQ C MEALS HS carvediloL 25 MG PO BID MEALS NITROGLYCERIN 0.4 MG SL Q5M PRN HEPARIN SODIUM,PORCINE 5000 UNIT IV ASDIR (PRN) TAMSULOSIN 0.4 MG PO BEDTIME LABS CBC W/AUTO DIFF (04/30/23 03:58) WHITE BLOOD CELL 10.2 RED BLOOD CELL 4.88 HEMOGLOBIN 13.3L L HEMATOCRIT 38.5L L MEAN CELL VOLUME 78.9 L MEAN CELL HGB 27.3 MEAN CELL HGB CONCENTRATION 34.5 RED CELL DISTRIBUTION WIDTH 12.7 L PLATELET COUNT 330 MEAN PLATELET VOLUME 9.5 NEUTROPHIL % 56.8 LYMPHOCYTE % 29.8 MONOCYTE % 8.4 EOSINOPHIL % 3.6 BASOPHIL % 0.5 NEUTROPHIL # 5.80 LYMPHOCYTE # 3.05 MONOCYTE # 0.86 H EOSINOPHIL # 0.37 BASOPHIL # 0.05 PTT (04/30/23 03:58) THROMBOPLASTIN TIME PARTIAL 109.7 D*H GLU BED (04/29/23 20:34) GLUBED 249 H GLU BED (04/29/23 16:25) GLUBED 206 H PTT (04/29/23 13:53) THROMBOPLASTIN TIME PARTIAL 90.2 H GLU BED (04/29/23 12:26) GLUBED 186 H GLU BED (04/29/23 07:38) GLUBED 228 H -- ATTESTATION -- CARE ACTIVITIES / CARE COORDINATION: - I have reviewed the history and repeated the gupta elements - I have seen and examined this patient - I have reviewed the progress in the clinical course since the last examination - I have discussed the patient's condition with other members of the care team ADDITIONAL DETAIL: Plan of care discussed with Dr. Claude Connell Signed in PatientKeeper by MCKAY MEYER on 04/30/23 at 11:31 Cosigned by CLAUDE CONNELL MD on 06/08/23 at 16:35 at 1635 at 1635 ATTE NTION *EDITS and/or ADDENDA must be made in Patient Keeper for this note. * * Edits and ammendments created in [employer] are not visible * * in Patient Keeper or the legal medical record ([facility]). * RPT #: [id number] END OF REPORT [facility] 2023-04-29 10:10:00 [facility] ([facility]) Cardiothoracic Surg. Consult REPORT #: [id number] REPORT STATUS: Signed DATE: 04/29/23 TIME: 1010 PATIENT: LUIS GUZMÁN UNIT #: [id number] ROOM #: P.[facility] BED: A : 55 AGE: 67 SEX: M ATTEND: Rajesh Kilgore MD ADM AUTHOR: Reyna Ortgea ATTE NTION *EDITS and/or ADDENDA must be made in Patient Keeper for this note. * * Edits and ammendments created in [employer] are not visible * * in Patient Keeper or the legal medical record ([facility]). * -- ASSESSMENT AND PLAN -- GENERAL ASSESSMENT: Patient is a 67 year-old male who was transferred from [facility] following coronary angiogram that showed severe multi-vessel coronary artery disease not amendable to PCI. The patient's entire medical chart has been reviewed. The patient has multiple risk factors for coronary disease including a positive family history, hyperlipidemia, and diabetes. Given the patient's left main disease, presence of diabetes, age, and good bypass targets coronary revascularization with bypass surgery is recommended as the most durable treatment modality. Chest CT completed today. The patient was treated for pneumonia remotely. He remains afebrile with no leukocytosis. Hemoglobin 12.5 with unknown baseline. Creatinine normal. UA negative. Dr. Gray will review the patient's coronary angiogram and echocardiogram once available. Carotid dopplers are negative. Vein mapping has been completed. Will repeat echocardiogram for baseline and to better assess the mitral valve. Patient remains asymptomatic at this time and vital signs remain adequate and the patient is on room air. Will defer surgery for Plavix washout (last dose 04/27). With critical left main disease, he will remain hospitalized with heparin drip in [facility] until surgery. The patient was seen and examined alongside Dr. Gray. Indications for coronary artery revascularization with CABG, risks, benefits, alternatives, and possible complications were presented to the patient. The patient wishes to proceed with surgical workup with possible surgery next week. All questions have been answered at this time. Will calculate STS score once echocardiogram has been completed. Plan: - Continue heparin drip. Plavix on hold for upcoming surgery (last dose 04/27/2023) - Echocardiogram today. - Continue aspirin, statin, and beta maco. ARB on hold for upcoming surgery. - Plan for CABG next with Dr. Gray. Thank you for the consultation and opportunity to participate in the patient's care. -- HISTORY -- CONSULT REQUESTED BY: Katya Cruz MD Cardiology DATE/TIME AT BEDSIDE: 2023-04-29 09:00 REASON FOR CONSULT: Multi-vessel coronary artery disease CHIEF COMPLAINT: Patient was transferred from [facility] for CABG evaluation. HPI: Mr. Guzmán is a 67 year-old male with past medical history of hypertension, hyperlipidemia, type 2 diabetes, BPH, CVA and AV fistula repair who was recently hospitalized in [facility] with viral illness that converted to pneumonia for which he was treated. During his admission, troponin was elevated. Echocardiogram at that time showed dilated cardiomyopathy and wall motion abnormalities concerning for stress cardiomyopathy versus LAD disease. Around this time, the patient had sustained a fall suffering multiple rib injuries. He has been attributing his chest pains (largely posterior/back and unrelated to activity or exertion) to his rib injuries. Although he felt better following pneumonia treatment, his continued to have mild dyspnea with exertion and diminished activity tolerance. Previous stress test and carotid dopplers in 2018 were negative. With multiple coronary disease risk factors, the patient underwent coronary angiogram with his primary rv mechanic, Dr. Cruz at [facility] yesterday. Heart catheterization showed critical distal left main disease involving the origin of the left anterior descending, 99%, distal left main 90%, ostium in origin of the left circumflex 90% and a big ramus intermedius with 99% stenosis, first obtuse marginal is small with 80% focal disease, left ventricular ejection fraction 50-55% with anteroapical hypokinesis and end-diastolic pressure of 25. Per [place] records, pre-heart catheterization echocardiogram showed ejection fraction of 35-40% with anteroapical hypokinesis and mild-moderate mitral regurgitation. The patient was transferred to [facility] on 04/28 for consideration of urgent CABG. When seen in the room, the patient is OOB in the chair with heparin drip in progress. He denies any current chest pain or shortness of breath. His is present at the bedside. Patient is agreeable to CABG workup. PAST MEDICAL HISTORY: Hypertension Hyperlipidemia Insulin-dependent type 2 diabetes mellitus, poorly controlled Diabetic neuropathy BPH CVA with mild left-sided weakness PAST SURGICAL HISTORY: Left heart catheterization (04/28/[address] Katya Cruz @ [facility]) AV fistula repair Neck abscess drainage FAMILY HISTORY: Positive family history of coronary artery disease. One daughter nearby (Christelle: [phone]). -SOCIAL HISTORY- -TOBACCO USE- DETAILS/COMMENTS: Denies use. -VAPING/INHALED SOLVENTS- DETAILS/COMMENTS: Denies use. -ALCOHOL USE- DETAILS/COMMENTS: Denies use. -DRUG USE- DETAILS/COMMENTS: Denies use. MARITAL STATUS: LIVING SITUATION: Patient lives at home with his . 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 -- ALLERGIES/HOME MEDS -- ALLERGIES: No Known Allergies (UNKNOWN - Allergy) HOME MEDICATIONS: aspirin chewable tablet 81 MG PO DAILY Atorvastatin Tab (Lipitor Tab) 40 MG PO DAILY Avalide 150 mg-12.5 mg tablet (irbesartan-hydrochlorothiazide) Oral Carvedilol Tab (Coreg Tab) 25 MG PO BID MEALS Clopidogrel Tab (Plavix Tab) 75 MG PO DAILY Finasteride Tab (Proscar Tab) 5 MG PO BEDTIME Insulin (Lispro) Inj (HumaLOG Inj) 3 UNITS SubQ C MEALS metFORMIN Tab (Glucophage Tab) 1000 MG PO BID NIFEdipine XL Tab (Procardia XL Tab) 30 MG PO DAILY Spironolactone Tab (Aldactone Tab) 25 MG PO DAILY Tamsulosin Cap (Flomax Cap) 0.4 MG PO DAILY Tresiba FlexTouch U-100 100 unit/mL (3 mL) subcutaneous insulin pen (insulin degludec) 36 UNITS SubQ DAILY -- SUBJECTIVE -- -REVIEW OF SYSTEMS- GENERAL: Negative for fever, malaise, fatigue. RESPIRATORY: Negative for dyspnea or wheeze. No cough. CARDIOVASCULAR: Negative for chest pain or palpitations. No extremity swelling. GASTROINTESTINAL: Negative for abdominal pain or nausea. No emesis. No diarrhea. GENITOURINARY: Negative for dysuria, frequency, or urgency. No gross hematuria. MUSCULOSKELETAL: Negative for joint stiffness, pain, or arthralgias. SKIN: Negative for rashes. No pruritus. NEUROLOGICAL: Negative for headache. No vertigo. Denies paresthesias. PSYCHIATRIC: Negative for specific complaints. -- OBJECTIVE -- VITALS (04/28 10:10 - 04/29 10:10): Temperature F: 97.5 (97.5 - 98.2) Temperature C: 36.9 (36.5 - 36.9) Temperature source: Oral Pulse Rate 59 (49 - 63) Respiratory rate: 17 (13 - 28) Blood pressure: 146/74 (115/58 - 178/79) Blood pressure source: Monitor I/Os (04/28 07:00 - 04/29 07:00): Net 150 Intake 150 -EXAM- GENERAL: Well developed, well nourished, in no apparent distress. HEAD: Normocephalic, atraumatic. NECK: No masses, no thyromegaly, no abnormal cervical nodes, trachea midline. CHEST: Grossly normal appearance. LUNGS: Clear bilaterally with normal respiratory effort. HEART: Regular rate and rhythm, normal S1, S2, no murmurs, no rubs, no gallops, no clicks. ABDOMEN: Soft, non-tender, no organomegaly, no masses noted. MUSCULOSKELETAL: No deformity, no scoliosis noted of thoracic or lumbar spine, joint ROM grossly normal, normal gait and station. EXTREMITIES: No clubbing, no cyanosis, no edema. NEUROLOGICAL: No focal deficits, cranial nerves II-XII grossly intact, normal sensation, normal reflexes, normal coordination, normal muscle strength, normal tone. PULSES: Pulses normal in all extremities. SKIN: Intact without significant lesions, or rashes. PSYCHIATRIC: Alert and oriented to time, person, place. Normal mood and affect, intact judgment and insight. -- DATA -- MEDICATIONS ONDANSETRON HCL/PF 4 MG IV Q6H PRN SODIUM CHLORIDE 0.9% 1000 ML IV .Q24H hydroCHLOROthiazide 25 MG PO DAILY GLUCAGON 1 MG IM ASDIR PRN FINASTERIDE 5 MG PO BEDTIME ATORVASTATIN CALCIUM 40 MG PO BEDTIME HEPARIN PHARMACY TO MONITOR 1 EACH IV ASDIR SPIRONOLACTONE 25 MG PO DAILY ACETAMINOPHEN 650 MG PO Q4H PRN SODIUM CHLORIDE 0.9% 1000 ML IV .Q24H DOCUSATE SODIUM 100 MG PO BID morphine SULFATE 2 MG IV Q3H PRN DEXTROSE 50%-WATER 25 ML IV ASDIR PRN ONDANSETRON 4 MG PO Q6H PRN HEPARIN/SOD CHLOR 0.45% 84059 UNITS IV TITRATE INSULIN GLARGINE 20 UNITS SUBQ 0800 HEPARIN SODIUM,PORCINE 3000 UNIT IV ASDIR (PRN) NIFEdipine 60 MG PO DAILY ASPIRIN 81 MG PO DAILY INSULIN LISPRO 0 UNITS SUBQ C MEALS HS carvediloL 25 MG PO BID MEALS NITROGLYCERIN 0.4 MG SL Q5M PRN HEPARIN SODIUM,PORCINE 5000 UNIT IV ASDIR (PRN) TAMSULOSIN 0.4 MG PO BEDTIME LABS GLU BED (04/29/23 07:38) GLUBED 228 H PTT (04/29/23 06:27) THROMBOPLASTIN TIME PARTIAL 89.9 H CBC W/AUTO DIFF (04/29/23 06:27) WHITE BLOOD CELL 7.6 RED BLOOD CELL 4.59 L HEMOGLOBIN 12.5L L HEMATOCRIT 36.4L L MEAN CELL VOLUME 79.3 L MEAN CELL HGB 27.2 MEAN CELL HGB CONCENTRATION 34.3 RED CELL DISTRIBUTION WIDTH 12.8 L PLATELET COUNT 291 MEAN PLATELET VOLUME 9.7 NEUTROPHIL % 60.1 LYMPHOCYTE % 25.5 MONOCYTE % 9.5 H EOSINOPHIL % 3.2 BASOPHIL % 0.8 NEUTROPHIL # 4.57 LYMPHOCYTE # 1.94 MONOCYTE # 0.72 EOSINOPHIL # 0.24 BASOPHIL # 0.06 PTT (04/28/23 23:26) THROMBOPLASTIN TIME PARTIAL 95.2 D H GLU BED (04/28/23 16:50) GLUBED 175 H URINALYSIS DIPSTICK (04/28/23 16:09) UA COLOR YELLOW UA APPEARANCE CLEAR UA GLUCOSE DIPSTICK 100 A UA BILIRUBIN DIPSTICK NEGATIVE UA KETONE DIPSTICK NEGATIVE UA SPECIFIC GRAVITY 1.010 UA BLOOD DIPSTICK NEGATIVE UA PH DIPSTICK 7.0 UA PROTEIN DIPSTICK NEGATIVE UA UROBILINOGEN DIPSTICK 0.2 UA NITRITE DIPSTICK NEGATIVE UA LEUKOCYTE ESTERASE DIPSTICK NEGATIVE COMPREHENSIVE METABOLIC PANEL (04/28/23 14:51) SODIUM 138 POTASSIUM 4.8 CHLORIDE 104 CARBON DIOXIDE 31 GLUCOSE 246 H BLOOD UREA NITROGEN 16 GLOMERULAR FILTRATION RATE >=60 max estimate CREATININE 0.80 TOTAL PROTEIN 6.1 ALBUMIN 3.8 CALCIUM 8.5 L BILIRUBIN TOTAL 0.8 SGOT/AST 18 SGPT/ALT 47 ALKALINE PHOSPHATASE 108.0 HGBA1C - GLYCOSYLATED HGB (04/28/23 14:51) GLYCOSYLATED HEMOGLOBIN (HA1C) 8.2 H PROTHROMBIN TIME (04/28/23 14:50) PROTHROMBIN TIME PATIENT 12.3 INTERNATIONAL NORMAL RATIO 1.10 PTT (04/28/23 14:50) THROMBOPLASTIN TIME PARTIAL 33.4 CBC W/AUTO DIFF (04/28/23 14:50) WHITE BLOOD CELL 8.0 RED BLOOD CELL 4.95 HEMOGLOBIN 13.2L L HEMATOCRIT 39.6L L MEAN CELL VOLUME 80.0 MEAN CELL HGB 26.7 L MEAN CELL HGB CONCENTRATION 33.3 RED CELL DISTRIBUTION WIDTH 13.1 PLATELET COUNT 346 MEAN PLATELET VOLUME 9.5 NEUTROPHIL % 62.8 LYMPHOCYTE % 22.0 MONOCYTE % 10.6 H EOSINOPHIL % 2.8 BASOPHIL % 0.4 NEUTROPHIL # 5.00 LYMPHOCYTE # 1.75 MONOCYTE # 0.84 H EOSINOPHIL # 0.22 BASOPHIL # 0.03 -- QUALITY -- -MEDICATIONS- - I attest that the foregoing medication list in the medical record is true, accurate, and complete to the best of my knowledge. -VTE PROPHYLAXIS -GENERAL- Yes TYPE OF VTE Heparin -- ATTESTATION -- CARE ACTIVITIES / CARE COORDINATION: - I have reviewed the history and repeated the gupta elements - I have seen and examined this patient - I have reviewed the progress in the clinical course since the last examination - I have discussed the patient's condition with other members of the care team Signed in PatientKeeper by Reyna Ortega on 04/29/23 at 16:56 Cosigned by WILFRIDO GRAY MD on 04/30/23 at 09:27 at 0927 at 0927 ATTE NTION *EDITS and/or ADDENDA must be made in Patient Keeper for this note. * * Edits and ammendments created in [employer] are not visible * * in Patient Keeper or the legal medical record (HPF). * RPT #: [id number] END OF REPORT [facility] 2023-04-29 10:04:00 [facility] ([facility]) Hospitalist Progress Note REPORT #: [id number] REPORT STATUS: Signed DATE: 04/29/23 TIME: 1004 PATIENT: LUIS GUZMÁN UNIT #: [id number] ROOM #: [id number] BED: A : 55 AGE: 67 SEX: M ATTEND: Rajesh Kilgore MD ADM AUTHOR: Rajesh Kilgore MD ATTE NTION *EDITS and/or ADDENDA must be made in Patient Keeper for this note. * * Edits and ammendments created in [employer] are not visible * * in Patient Keeper or the legal medical record (HPF). * -- ASSESSMENT AND PLAN -- GENERAL ASSESSMENT: ASSESSMENT AND PLAN: 1. Critical multivessel coronary artery disease including distal left main, 90-99%, at the origin of the left anterior descending, the origin of the circumflex, first diagonal with 99% first obtuse marginal with 80%, and a left ventricular ejection fraction of 50-55% with anteroapical hypokinesis. The patient apparently had a non-ST segment elevation myocardial infarction a few weeks ago. His disease is not amenable to percutaneous coronary intervention and he has been transferred to the [facility] for consideration of CABG by Dr. Wilfrido Gray. I will continue to hold clopidogrel and metformin. Start heparin infusion. Continue beta blockers and statins. 2. Diabetes mellitus type 2, not well controlled. Hemoglobin A1c is 8.2. Continue long-acting and short-acting insulins. 3. Hypertension, continue carvedilol and nifedipine. We will hold angiotensin receptor blockers perioperatively. 4. Benign prostatic hypertrophy. Continue finasteride and tamsulosin. 5. History of cerebrovascular accident, with minimal left-sided residual weakness. 6. Chronic kidney disease stage II. 7. Anemia, mild. 8. Subsegmental atelectasis. Incentive spirometry. ADDITIONAL COMMENTS: Critical multivessel coronary artery disease in involving the distal left main. Plans for CABG week of 05/02. Additional workup in progress. -- SUBJECTIVE -- HPI: This 67-year-old gentleman has a past medical history significant for insulin-dependent diabetes with neuropathy, CVA, hypertension, hyperlipidemia and AV fistula repair in the neck. The patient has had complaints of progressive fatigue and tiredness and was recently admitted to an outside hospital with a viral illness/pneumonia. Troponin was found to be elevated and echocardiogram showed dilated cardiomyopathy and wall motion abnormalities consistent with stress cardiomyopathy or disease. The patient was admitted for selective coronary angiogram by Dr. Katya Cruz on 04/28/2023 to [facility]. It showed critical distal left main disease involving the origin of the left anterior descending, 99%, distal left main 90%, ostium in origin of the left circumflex 90% and a big ramus intermedius with 99% stenosis, first obtuse marginal is small with 80% focal disease, left ventricular ejection fraction 50-55% with anteroapical hypokinesis and end-diastolic pressure of 25. With these critical findings, the patient was transferred to the [facility] for consideration of urgent CABG by Dr. Wilfrido Gray. PATIENT NARRATIVE: 04/29: No acute events overnight. No chest pain or shortness of breath. Therapeutic PTT on heparin. Plans for CABG with Dr. Wilfrido Gray week of 05/02. CT shows: Bandlike scarring versus subsegmental atelectasis at the bilateral lower lobes. Coronary artery calcifications are noted. No cardiomegaly. -Carotid Dopplers negative for any hemodynamically significant lesion. Vein mapping done. -REVIEW OF SYSTEMS- GENERAL: CONSTITUTIONAL: Fatigue and tiredness. No fever or chills. No weight gain or weight loss. HEENT: Denies any cough, congestion, or runny nose. CARDIOPULMONARY: Shortness of breath. No chest pain. GASTROINTESTINAL: Denies any abdominal pain, nausea, vomiting, diarrhea or constipation. GENITOURINARY: Denies any dysuria or discharge. NEUROLOGICAL: Denies any headache, dizziness or syncope. -- OBJECTIVE -- VITALS (04/28 10:04 - 04/29 10:04): Temperature F: 97.5 (97.5 - 98.2) Temperature C: 36.9 (36.5 - 36.9) Temperature source: Oral Pulse Rate 59 (49 - 63) Respiratory rate: 17 (13 - 28) Blood pressure: 146/74 (115/58 - 178/79) Blood pressure source: Monitor I/Os (04/28 07:00 - 04/29 07:00): Net 150 Intake 150 -EXAM- GENERAL: GENERAL: Elderly male, not in any acute distress. VITAL SIGNS: oxygen saturation is 97% on room air. Weight is 78.2 kilograms. Body mass index 27. HEENT: Head is atraumatic. Pupils are reactive to light and accommodation. Extraocular muscles intact. NECK: Supple. No thyromegaly. No JVD. CARDIOVASCULAR: Regular rate and rhythm. LUNGS: Clear to auscultation. ABDOMEN: Soft, nontender. EXTREMITIES: No edema, cyanosis or clubbing. Pedal pulses palpable. NEUROLOGIC: No focal deficit. -- DATA -- MEDICATIONS ONDANSETRON HCL/PF 4 MG IV Q6H PRN SODIUM CHLORIDE 0.9% 1000 ML IV .Q24H hydroCHLOROthiazide 25 MG PO DAILY GLUCAGON 1 MG IM ASDIR PRN FINASTERIDE 5 MG PO BEDTIME ATORVASTATIN CALCIUM 40 MG PO BEDTIME HEPARIN PHARMACY TO MONITOR 1 EACH IV ASDIR SPIRONOLACTONE 25 MG PO DAILY ACETAMINOPHEN 650 MG PO Q4H PRN SODIUM CHLORIDE 0.9% 1000 ML IV .Q24H DOCUSATE SODIUM 100 MG PO BID morphine SULFATE 2 MG IV Q3H PRN DEXTROSE 50%-WATER 25 ML IV ASDIR PRN ONDANSETRON 4 MG PO Q6H PRN HEPARIN/SOD CHLOR 0.45% 75229 UNITS IV TITRATE INSULIN GLARGINE 20 UNITS SUBQ 0800 HEPARIN SODIUM,PORCINE 3000 UNIT IV ASDIR (PRN) NIFEdipine 60 MG PO DAILY ASPIRIN 81 MG PO DAILY INSULIN LISPRO 0 UNITS SUBQ C MEALS HS carvediloL 25 MG PO BID MEALS NITROGLYCERIN 0.4 MG SL Q5M PRN HEPARIN SODIUM,PORCINE 5000 UNIT IV ASDIR (PRN) TAMSULOSIN 0.4 MG PO BEDTIME LABS GLU BED (04/29/23 07:38) GLUBED 228 H PTT (04/29/23 06:27) THROMBOPLASTIN TIME PARTIAL 89.9 H CBC W/AUTO DIFF (04/29/23 06:27) WHITE BLOOD CELL 7.6 RED BLOOD CELL 4.59 L HEMOGLOBIN 12.5L L HEMATOCRIT 36.4L L MEAN CELL VOLUME 79.3 L MEAN CELL HGB 27.2 MEAN CELL HGB CONCENTRATION 34.3 RED CELL DISTRIBUTION WIDTH 12.8 L PLATELET COUNT 291 MEAN PLATELET VOLUME 9.7 NEUTROPHIL % 60.1 LYMPHOCYTE % 25.5 MONOCYTE % 9.5 H EOSINOPHIL % 3.2 BASOPHIL % 0.8 NEUTROPHIL # 4.57 LYMPHOCYTE # 1.94 MONOCYTE # 0.72 EOSINOPHIL # 0.24 BASOPHIL # 0.06 PTT (04/28/23 23:26) THROMBOPLASTIN TIME PARTIAL 95.2 D H GLU BED (04/28/23 16:50) GLUBED 175 H URINALYSIS DIPSTICK (04/28/23 16:09) UA COLOR YELLOW UA APPEARANCE CLEAR UA GLUCOSE DIPSTICK 100 A UA BILIRUBIN DIPSTICK NEGATIVE UA KETONE DIPSTICK NEGATIVE UA SPECIFIC GRAVITY 1.010 UA BLOOD DIPSTICK NEGATIVE UA PH DIPSTICK 7.0 UA PROTEIN DIPSTICK NEGATIVE UA UROBILINOGEN DIPSTICK 0.2 UA NITRITE DIPSTICK NEGATIVE UA LEUKOCYTE ESTERASE DIPSTICK NEGATIVE COMPREHENSIVE METABOLIC PANEL (04/28/23 14:51) SODIUM 138 POTASSIUM 4.8 CHLORIDE 104 CARBON DIOXIDE 31 GLUCOSE 246 H BLOOD UREA NITROGEN 16 GLOMERULAR FILTRATION RATE >=60 max estimate CREATININE 0.80 TOTAL PROTEIN 6.1 ALBUMIN 3.8 CALCIUM 8.5 L BILIRUBIN TOTAL 0.8 SGOT/AST 18 SGPT/ALT 47 ALKALINE PHOSPHATASE 108.0 HGBA1C - GLYCOSYLATED HGB (04/28/23 14:51) GLYCOSYLATED HEMOGLOBIN (HA1C) 8.2 H PROTHROMBIN TIME (04/28/23 14:50) PROTHROMBIN TIME PATIENT 12.3 INTERNATIONAL NORMAL RATIO 1.10 PTT (04/28/23 14:50) THROMBOPLASTIN TIME PARTIAL 33.4 CBC W/AUTO DIFF (04/28/23 14:50) WHITE BLOOD CELL 8.0 RED BLOOD CELL 4.95 HEMOGLOBIN 13.2L L HEMATOCRIT 39.6L L MEAN CELL VOLUME 80.0 MEAN CELL HGB 26.7 L MEAN CELL HGB CONCENTRATION 33.3 RED CELL DISTRIBUTION WIDTH 13.1 PLATELET COUNT 346 MEAN PLATELET VOLUME 9.5 NEUTROPHIL % 62.8 LYMPHOCYTE % 22.0 MONOCYTE % 10.6 H EOSINOPHIL % 2.8 BASOPHIL % 0.4 NEUTROPHIL # 5.00 LYMPHOCYTE # 1.75 MONOCYTE # 0.84 H EOSINOPHIL # 0.22 BASOPHIL # 0.03 -- QUALITY -- -MEDICATIONS- - I attest that the foregoing medication list in the medical record is true, accurate, and complete to the best of my knowledge. -- ATTESTATION -- CARE ACTIVITIES / CARE COORDINATION: - I have reviewed the history and repeated the gupta elements - I have seen and examined this patient - I have reviewed the progress in the clinical course since the last examination - I have discussed the patient's condition with other members of the care team Signed in PatientKeeper by Rajesh Kilgore MD on 04/29/23 at 15:38 at 1538 ATTE NTION *EDITS and/or ADDENDA must be made in Patient Keeper for this note. * * Edits and ammendments created in [employer] are not visible * * in Patient Keeper or the legal medical record (HPF). * RPT #: [id number] END OF REPORT [facility] 2023-04-29 08:16:00 [facility] ([facility]) Cardiology Progress Notes REPORT #: [id number] REPORT STATUS: Signed DATE: 04/29/23 TIME: 815 PATIENT: LUIS GUZMÁN UNIT #: [id number] ROOM #: [facility] BED: A : 55 AGE: 67 SEX: M ATTEND: Rajesh Kilgore MD ADM AUTHOR: Prachi Saenz NP ATTE NTION *EDITS and/or ADDENDA must be made in Patient Keeper for this note. * * Edits and ammendments created in [facility] are not visible * * in Patient Keeper or the legal medical record (HPF). * -- CO-SIGNATURE -- COMMENTS: The patient was seen on rounds with Prachi Saenz NP. The patient has no complaints Examination demonstrates normal heart sounds and clear lung mcmanus. Impression and plan The patient is a 61-year-old gentleman with multivessel coronary artery disease who is pending cardiac surgery. Hold ARB prior to surgery and we will compensate by increasing the nifedipine. Continue heparin and aspirin but no other antiplatelet drugs. Timing of cardiac surgery as per the surgical service. Signed in PatientKeeper by JUAN M WEI MD on 04/30/23 at 10:35 -- ASSESSMENT AND PLAN -- PROBLEMS: 1: Coronary artery disease A/P: The patient is a 61-year-old gentleman who is referred by Dr. Katya Cruz and who was having worsening symptoms of fatigue and possibly chest discomfort. He has a past medical history of DM2 (on insulin, HgbA1c 8.2), hypertension, hyperlipidemia, CVA with residual left-sided weakness, and who underwent a selective coronary angiogram on 04/28/2023 at [facility] demonstrating distal left main disease (90%), LAD (99%), ostial LCx (90%), big RI (99%), OM1 (small, 80%), LVEF 50-55%. He was transferred here for urgent bypass surgery with Dr. Wilfrido Gray. - Hemodynamically stable - BP high. - Stop losartan given pending surgery. Increase nifedipine xl to 60mg. Increase HCTZ to 25mg daily, Continue spironolactone 25mg daily. - On carvedilol 25mg BID. - Continue aspirin 81mg daily. - On IV Heparin drip. - Will follow rogelio-operatively. -- SUBJECTIVE -- CHIEF COMPLAINT: Multi-vessel coronary artery disease PATIENT NARRATIVE: No acute events overnight. Transferred here yesterday for CABG. -REVIEW OF SYSTEMS- COMMENT: General: Negative for fever, malaise, + fatigue. Eyes: Negative for blurry vision. No diplopia. Respiratory :Negative for dyspnea or wheeze. No cough. Cardiovascular: Negative for chest pain or palpitations. No extremity swelling. Gastrointestinal Negative for abdominal pain or nausea. No emesis. No diarrhea. Genitourinary: Negative for dysuria, frequency, or urgency. No gross hematuria. Musculoskeletal: Negative for joint stiffness, pain, or arthralgias. Skin: Negative for rashes. No pruritus. Neurological: Negative for headache. No vertigo. Denies paresthesias. Psychiatric: Negative for specific complaints. -- OBJECTIVE -- VITALS (04/28 08:16 - 04/29 08:16): Temperature F: 97.5 (97.5 - 98.2) Temperature C: 36.9 (36.5 - 36.9) Temperature source: Oral Pulse Rate 49 (49 - 63) Respiratory rate: 17 (13 - 28) Blood pressure: 173/74 (115/58 - 178/79) Blood pressure source: Monitor I/Os (04/28 07:00 - 04/29 07:00): Net 150 Intake 150 -EXAM- OTHER: Constitutional: Well developed, well nourished patient, in no acute distress. Derm/Integumentary: Warm and dry with no rashes, sores, or lesions. Mouth: Mucosa moist and pink with no lesions. Neck: supple with no masses, no thryomegaly, No JVD. Respiratory: Clear to auscultation. Heart: S1S2+, Regular Rate and Rhythm, No murmurs, rubs, or gallops. Gastrointestinal: + Bowel Sounds all quadrants. Soft, nontender with no masses or organomegaly. Musculoskeletal: Equal strength in all extremities. No weakness. Neurology: Alert and oriented X 3. Mild left sided weakness from old stroke. Extremities: + peripheral pulses.No lower extremity edema. -- DATA -- MEDICATIONS cloNIDine HCL 0.1 MG PO Q8H PRN ONDANSETRON HCL/PF 4 MG IV Q6H PRN SODIUM CHLORIDE 0.9% 1000 ML IV .Q24H LOSARTAN POTASSIUM 100 MG PO DAILY GLUCAGON 1 MG IM ASDIR PRN FINASTERIDE 5 MG PO BEDTIME ATORVASTATIN CALCIUM 40 MG PO BEDTIME HEPARIN PHARMACY TO MONITOR 1 EACH IV ASDIR SPIRONOLACTONE 25 MG PO DAILY ACETAMINOPHEN 650 MG PO Q4H PRN SODIUM CHLORIDE 0.9% 1000 ML IV .Q24H DOCUSATE SODIUM 100 MG PO BID morphine SULFATE 2 MG IV Q3H PRN DEXTROSE 50%-WATER 25 ML IV ASDIR PRN hydroCHLOROthiazide 12.5 MG PO DAILY ONDANSETRON 4 MG PO Q6H PRN HEPARIN/SOD CHLOR 0.45% 20691 UNITS IV TITRATE INSULIN GLARGINE 20 UNITS SUBQ 0800 HEPARIN SODIUM,PORCINE 3000 UNIT IV ASDIR (PRN) ASPIRIN 81 MG PO DAILY NIFEdipine 30 MG PO DAILY INSULIN LISPRO 0 UNITS SUBQ C MEALS HS carvediloL 25 MG PO BID MEALS NITROGLYCERIN 0.4 MG SL Q5M PRN HEPARIN SODIUM,PORCINE 5000 UNIT IV ASDIR (PRN) TAMSULOSIN 0.4 MG PO BEDTIME LABS GLU BED (04/29/23 07:38) GLUBED 228 H PTT (04/29/23 06:27) THROMBOPLASTIN TIME PARTIAL 89.9 H CBC W/AUTO DIFF (04/29/23 06:27) WHITE BLOOD CELL 7.6 RED BLOOD CELL 4.59 L HEMOGLOBIN 12.5L L HEMATOCRIT 36.4L L MEAN CELL VOLUME 79.3 L MEAN CELL HGB 27.2 MEAN CELL HGB CONCENTRATION 34.3 RED CELL DISTRIBUTION WIDTH 12.8 L PLATELET COUNT 291 MEAN PLATELET VOLUME 9.7 NEUTROPHIL % 60.1 LYMPHOCYTE % 25.5 MONOCYTE % 9.5 H EOSINOPHIL % 3.2 BASOPHIL % 0.8 NEUTROPHIL # 4.57 LYMPHOCYTE # 1.94 MONOCYTE # 0.72 EOSINOPHIL # 0.24 BASOPHIL # 0.06 PTT (04/28/23 23:26) THROMBOPLASTIN TIME PARTIAL 95.2 D H GLU BED (04/28/23 16:50) GLUBED 175 H URINALYSIS DIPSTICK (04/28/23 16:09) UA COLOR YELLOW UA APPEARANCE CLEAR UA GLUCOSE DIPSTICK 100 A UA BILIRUBIN DIPSTICK NEGATIVE UA KETONE DIPSTICK NEGATIVE UA SPECIFIC GRAVITY 1.010 UA BLOOD DIPSTICK NEGATIVE UA PH DIPSTICK 7.0 UA PROTEIN DIPSTICK NEGATIVE UA UROBILINOGEN DIPSTICK 0.2 UA NITRITE DIPSTICK NEGATIVE UA LEUKOCYTE ESTERASE DIPSTICK NEGATIVE COMPREHENSIVE METABOLIC PANEL (04/28/23 14:51) SODIUM 138 POTASSIUM 4.8 CHLORIDE 104 CARBON DIOXIDE 31 GLUCOSE 246 H BLOOD UREA NITROGEN 16 GLOMERULAR FILTRATION RATE >=60 max estimate CREATININE 0.80 TOTAL PROTEIN 6.1 ALBUMIN 3.8 CALCIUM 8.5 L BILIRUBIN TOTAL 0.8 SGOT/AST 18 SGPT/ALT 47 ALKALINE PHOSPHATASE 108.0 HGBA1C - GLYCOSYLATED HGB (04/28/23 14:51) GLYCOSYLATED HEMOGLOBIN (HA1C) 8.2 H PROTHROMBIN TIME (04/28/23 14:50) PROTHROMBIN TIME PATIENT 12.3 INTERNATIONAL NORMAL RATIO 1.10 PTT (04/28/23 14:50) THROMBOPLASTIN TIME PARTIAL 33.4 CBC W/AUTO DIFF (04/28/23 14:50) WHITE BLOOD CELL 8.0 RED BLOOD CELL 4.95 HEMOGLOBIN 13.2L L HEMATOCRIT 39.6L L MEAN CELL VOLUME 80.0 MEAN CELL HGB 26.7 L MEAN CELL HGB CONCENTRATION 33.3 RED CELL DISTRIBUTION WIDTH 13.1 PLATELET COUNT 346 MEAN PLATELET VOLUME 9.5 NEUTROPHIL % 62.8 LYMPHOCYTE % 22.0 MONOCYTE % 10.6 H EOSINOPHIL % 2.8 BASOPHIL % 0.4 NEUTROPHIL # 5.00 LYMPHOCYTE # 1.75 MONOCYTE # 0.84 H EOSINOPHIL # 0.22 BASOPHIL # 0.03 -- ATTESTATION -- CARE ACTIVITIES / CARE COORDINATION: - I have reviewed the history and repeated the gupta elements - I have seen and examined this patient - I have reviewed the progress in the clinical course since the last examination - I have discussed the patient's condition with other members of the care team Signed in PatientKeeper by Prachi Saenz NP on 04/29/23 at 08:27 Cosigned by JUAN M WEI MD on 04/30/23 at 10:35 at 1035 at 1035 ATTE NTION *EDITS and/or ADDENDA must be made in Patient Keeper for this note. * * Edits and ammendments created in [facility] are not visible * * in Patient Keeper or the legal medical record ([facility]). * RPT #: [id number] END OF REPORT [facility] 2023-04-28 22:34:00 [facility] ([facility]) Hospitalist Clinical Note REPORT #: [id number] REPORT STATUS: Signed DATE: 04/28/23 TIME: 2233 PATIENT: LUIS GUZMÁN UNIT #: [id number] ROOM #: P.0402 BED: A : 55 AGE: 67 SEX: M ATTEND: Rajesh Kilgore MD [facility] AUTHOR: Rajesh Kilgore MD ATTE NTION *EDITS and/or ADDENDA must be made in Patient Keeper for this note. * * Edits and ammendments created in [employer] are not visible * * in Patient Keeper or the legal medical record ([facility]). * -- NOTATION -- NOTATION: pt seen HP [id number] Signed in PatientKeeper by Rajesh Kilgore MD on 04/28/23 at 22:35 at 2235 ATTE NTION *EDITS and/or ADDENDA must be made in Patient Keeper for this note. * * Edits and ammendments created in [facility] are not visible * * in Patient Keeper or the legal medical record ([facility]). * [facility] #: [id number] END OF REPORT [facility] 2023-04-28 22:34:00 [id number] [place] [address] PATIENT NAME: LUIS GUZMÁN ADMIT DATE: 04/28/23 ACCOUNT NO: [id number] ROOM NO: P.0420 AGE: 67 REPORT TYPE: HISTORY AND PHYSICAL SEX: M ADMITTING PHYSICIAN:Rajesh Kilgore MD ATTENDING PHYSICIAN:Rajesh Kilgore MD ADMISSION DATE: 04/28/2023 13:33:00 AGE AND SEX: 67-year-old male. REASON FOR ADMISSION: Severe multivessel coronary artery disease. The patient has been admitted for CABG. HISTORY OF PRESENT ILLNESS: This 67-year-old gentleman has a past medical history significant for insulin-dependent diabetes with neuropathy, hypertension, hyperlipidemia and AV fistula repair in the neck. The patient has had complaints of progressive fatigue and tiredness and was recently admitted to an outside hospital with a viral illness/pneumonia. Troponin was found to be elevated and echocardiogram showed dilated cardiomyopathy and wall motion abnormalities consistent with stress cardiomyopathy or disease. The patient was admitted for selective coronary angiogram by Dr. Katya Cruz on 04/28/2023 to [facility]. It showed critical distal left main disease involving the origin of the left anterior descending, 99%, distal left main 90%, ostium in origin of the left circumflex 90% and a big ramus intermedius with 99% stenosis, first obtuse marginal is small with 80% focal disease, left ventricular ejection fraction 50-55% with anteroapical hypokinesis and end-diastolic pressure of 25. With these critical findings, the patient was transferred to the [facility] for consideration of urgent CABG by Dr. Wilfrido Gray. When seen in the room, the patient is awake, alert and oriented and verbalizes the above. He does report shortness of breath, but denies any overt chest pain. PAST MEDICAL HISTORY: 1. Hypertension. 2. Hyperlipidemia. 3. Diabetes mellitus type 2, requiring insulin. 4. Diabetic neuropathy. 5. AV fistula repair in the neck with drainage of an abscess in the past. 6. History of cerebrovascular accidents, minimal left-sided weakness. PAST SURGICAL HISTORY: As above. SOCIAL HISTORY: He is and lives at home with his . No tobacco or alcohol use. FAMILY HISTORY: Positive for heart problems. MEDICATIONS: Home medications include metformin, tamsulosin, finasteride, carvedilol 25 mg twice daily, irbesartan, hydrochlorothiazide 300/12.5 twice PATIENT NAME: LUIS GUZMÁN daily, nifedipine 30 mg daily, spironolactone 25 mg, atorvastatin 40 mg, Tresiba 36 units, lispro insulin 3 times a day, aspirin 81 mg, Plavix 75 mg, last dose on 04/25. ALLERGIES: NO KNOWN DRUG ALLERGIES. REVIEW OF SYSTEMS: Detailed review of systems was performed. CONSTITUTIONAL: Fatigue and tiredness. No fever or chills. No weight gain or weight loss. HEENT: Denies any cough, congestion, or runny nose. CARDIOPULMONARY: Shortness of breath. No chest pain. GASTROINTESTINAL: Denies any abdominal pain, nausea, vomiting, diarrhea or constipation. GENITOURINARY: Denies any dysuria or discharge. NEUROLOGICAL: Denies any headache, dizziness or syncope. PHYSICAL EXAMINATION: GENERAL: Elderly male, not in any acute distress. VITAL SIGNS: Temperature 98.2, heart rate 63, respiratory rate 26, blood pressure 173/79, oxygen saturation is 97% on room air. Weight is 78.2 kilograms. Body mass index 27. HEENT: Head is atraumatic. Pupils are reactive to light and accommodation. Extraocular muscles intact. NECK: Supple. No thyromegaly. No JVD. CARDIOVASCULAR: Regular rate and rhythm. LUNGS: Clear to auscultation. ABDOMEN: Soft, nontender. EXTREMITIES: No edema, cyanosis or clubbing. Pedal pulses palpable. NEUROLOGIC: No focal deficit. LABORATORY DATA: WBC 8, hemoglobin 13.2, hematocrit 39.6, platelets 346. Sodium 138, potassium 4.8, chloride 104, CO2 of 31, blood sugar 246, BUN 16, creatinine 0.8, GFR greater than 60, calcium 8.5. Liver function tests normal. Hemoglobin A1c 8.2. ASSESSMENT AND PLAN: 1. Critical multivessel coronary artery disease including distal left main, 90-99%, at the origin of the left anterior descending, the origin of the circumflex, first diagonal with 99% first obtuse marginal with 80%, and a left ventricular ejection fraction of 50-55% with anteroapical hypokinesis. The patient apparently had a non-ST segment elevation myocardial infarction a few weeks ago. His disease is not amenable to percutaneous coronary intervention and he has been transferred to the [facility] for consideration of CABG by Dr. Wilfrido Gray. I will continue to hold clopidogrel and metformin. Start heparin infusion. Continue beta blockers and statins. 2. Diabetes mellitus type 2, not well controlled. Hemoglobin A1c is 8.2. Continue longacting and short-acting insulins. 3. Hypertension, continue carvedilol and nifedipine. We will hold angiotensin receptor blockers perioperatively. 4. Benign prostatic hypertrophy. Continue finasteride and tamsulosin. 5. History of cerebrovascular accident, with minimal left-sided residual weakness. 6. Chronic kidney disease stage II. PATIENT NAME: LUIS GUZMÁN 7. Anemia, mild. Plan of care discussed with the consultants. Dictated By: Rajesh Kilgore MD Date Dictated: 04/28/2023 22:34:15 Date Transcribed: 04/29/2023 00:25:20 RODERICK/LAUREL Receipt ID: [id number] Authenticated by Rajesh Kilgore MD On 05/26/2023 10:16:47 PM at 1016 PATIENT NAME: LUIS GUZMÁN [facility] 2023-04-28 14:30:00 [facility] ([facility]) Med Order Sheet REPORT #: [id number] REPORT STATUS: Signed DATE: 04/28/23 TIME: 1430 PATIENT: LUIS GUZMÁN UNIT #: [id number] ROOM #: P.0620 BED: 1 : 55 AGE: 67 SEX: M ATTEND: Rajesh Kilgore MD ADM AUTHOR: Rajesh Kilgore MD ATTE NTION *EDITS and/or ADDENDA must be made in Patient Keeper for this note. * * Edits and ammendments created in [employer] are not visible * * in Patient Keeper or the legal medical record ([facility]). * Admission Medication Reconciliation -- CONTINUED / CHANGED HOME MEDICATIONS -- Home: aspirin chewable tablet 81 MG PO DAILY Hosp: Aspirin Chewable Tab (Aspirin Chewable Tab) 81 MG PO DAILY Home: Atorvastatin Tab (Lipitor Tab) 40 MG PO DAILY Hosp: Atorvastatin Tab (Lipitor Tab) 40 MG PO BEDTIME Home: Avalide 150 mg-12.5 mg tablet (irbesartan-hydrochlorothiazide) Oral (AVALIDE 300/12.5 MG DAILY) Hosp: Avalide 150 mg-12.5 mg tablet (irbesartan-hydrochlorothiazide) PO - AVALIDE 300/12.5 MG DAILY Home: Carvedilol Tab (Coreg Tab) 25 MG PO BID MEALS Hosp: CARVEdilol Tab (Coreg Tab) 25 MG PO BID MEALS Home: Finasteride Tab (Proscar Tab) 5 MG PO BEDTIME Hosp: Finasteride Tab (Proscar Tab) 5 MG PO BEDTIME Home: NIFEdipine XL Tab (Procardia XL Tab) 30 MG PO DAILY Hosp: NIFEdipine XL Tab (Procardia XL Tab) 30 MG PO DAILY Home: Spironolactone Tab (Aldactone Tab) 25 MG PO DAILY Hosp: Spironolactone Tab (Aldactone Tab) 25 MG PO DAILY Home: Tamsulosin Cap (Flomax Cap) 0.4 MG PO DAILY Hosp: Existing: Tamsulosin Cap (Flomax Cap) 0.4 MG PO bedtime -- STOPPED HOME MEDICATIONS -- Home: Clopidogrel Tab (Plavix Tab) 75 MG PO DAILY Home: Insulin (Lispro) Inj (HumaLOG Inj) 3 UNITS SubQ C MEALS Home: metFORMIN Tab (Glucophage Tab) 1000 MG PO BID Home: Tresiba FlexTouch U-100 100 unit/mL (3 mL) subcutaneous insulin pen (insulin degludec) 36 UNITS SubQ DAILY at 1430 ATTE NTION *EDITS and/or ADDENDA must be made in Patient Keeper for this note. * * Edits and ammendments created in [facility] are not visible * * in Patient Keeper or the legal medical record ([facility]). * RPT #: [id number] END OF REPORT [facility] 2023-04-28 09:58:00 [id number] [facility] [id number] [place] [address] PATIENT NAME: LUIS GUZMÁN ADMIT DATE: 04/28/23 ACCOUNT NO: [id number] ROOM NO: AGE: 67 REPORT TYPE: DISCHARGE SUMMARY SEX: M ADMITTING PHYSICIAN: ATTENDING PHYSICIAN: Katya Cruz MD Cardiology ADMISSION DATE: 04/28/2023 07:02:00 DISCHARGE DATE: WORLD TRAVEL COUNSELOR: Katya Cruz MD DISCHARGE DIAGNOSES: Severe coronary artery disease. REASON FOR DISCHARGE: Transfer to the [facility] for urgent bypass. DISCHARGE SUMMARY: The patient was presented to [facility] in [place] this morning for cardiac catheterization. Cardiac catheterization showed critical coronary artery disease. The patient completed the procedure without any complications and he is actually very stable at this time, but he has severe disease that needs urgent bypass, so arrangement is being made to transfer him to the [facility] for bypass as soon as possible. The patient is completely stable and he will be transferred to a flower hospital bed. He will be transferred on the same medications and the same instructions and he will be followed up by the [facility]. Dictated By: Katya Cruz MD Date Dictated: 04/28/2023 09:58:53 Date Transcribed: 04/28/2023 10:17:20 [facility] Receipt ID: [id number] Authenticated by Katya Cruz MD On 04/28/2023 10:23:52 AM at 1023 PATIENT NAME: LUIS GUZMÁN [facility] 2023-04-28 09:48:00 [id number] [address] PATIENT NAME: LUIS GUZMÁN ADMIT DATE: 04/28/23 ACCOUNT NO: [id number] ROOM NO: AGE: 67 REPORT TYPE: eELECTROCARDIOGRAM SEX: M ADMITTING PHYSICIAN: ATTENDING PHYSICIAN: Katya Cruz MD Order: [id number] Test Reason : sp procedure Test Date/Time Stamp: TueApr 28 2023 09:48:13 Blood Pressure : / mmHG Vent. Rate : 053 BPM Atrial Rate : 053 BPM P-R Int : 214 ms QRS Dur : 100 ms QT Int : 448 ms P-R-T Axes : 071 -51 -61 degrees QTc Int : 420 ms Sinus bradycardia with 1st degree AV block Left anterior fascicular block Inferior infarct (cited on or before 28-APR-2023) Abnormal ECG When compared with ECG of 28-APR-2023 07:29, UT interval has increased Confirmed by KATYA CRUZ ([id number]) on 04/28/2023 10:16:04 AM Referred By: Katya Cruz Confirmed by:KATYA CRUZ at 1016 PATIENT NAME: LUIS GUZMÁN [facility] 2023-04-28 09:15:00 [id number] [address] PATIENT NAME: LUIS GUZMÁN ADMIT DATE: 04/28/23 ACCOUNT NO: [id number] ROOM NO: AGE: 67 REPORT TYPE: OPERATIVE REPORT SEX: M ADMITTING PHYSICIAN: ATTENDING PHYSICIAN: Katya Cruz MD Cardiology OPERATION DATE: 04/28/2023 WORLD TRAVEL COUNSELOR: Katya Cruz MD BORDERER: TITLE OF PROCEDURE: Left heart catheterization. PREOPERATIVE DIAGNOSIS: POSTOPERATIVE DIAGNOSIS: INDICATION FOR THE PROCEDURE: Recent myocardial infarction with a picture of dilated ischemic cardiomyopathy on the echo in a patient with suspected high-grade coronary artery disease. ESTIMATED BLOOD LOSS: Minimal. COMPLICATIONS: None. CONTRAST: 50 mL. ANESTHESIA: Conscious sedation with Versed and fentanyl and 1% lidocaine for local anesthesia. FINAL DIAGNOSES: Severe 2-vessel coronary artery disease and left main disease, elevated left ventricular end-diastolic pressure, calcified vessels. RECOMMENDATION: Urgent bypass. PROCEDURE IN DETAIL: After informed consent, the patient was brought to the cardiac catheterization lab in a stable fasting nonsedated state. He was prepped and draped in the usual sterile fashion. After conscious sedation, 1% lidocaine was administered to the right common femoral artery area for local anesthesia. A 6-Belarusian sheath was placed in the right common femoral artery using standard techniques and fluoroscopy. After heparinization left coronary angiogram showed a critical distal left main disease involving the origin of the LAD at 99% distal left main 90% ostium and origin of the circumflex at 90% and there is a big ramus intermedius that acts as a first diagonal with 99%. Also, proximal disease focal, first obtuse marginal small with 80% focal disease with less of the circumflex is large and its looks like a codominant vessel. Right coronary angiogram showed a small, but codominant vessel with luminal PATIENT NAME: LUIS GUZMÁN irregularities. Left ventricular angiogram showed an ejection fraction of 50% to 55%, anteroapical hypokinesis, which is mild elevated left ventricular end-diastolic pressure of 25 and no aortic valve gradient. The right groin was sealed using Angio-Seal. There were no complications. The patient tolerated the procedure well. He was transferred to the holding unit for observation. The patient will be referred for urgent bypass. Rest as per orders. Dictated By: Katya Cruz MD Date Dictated: 04/28/2023 09:15:04 Date Transcribed: 04/28/2023 09:32:09 RAFAEL/LESTER Receipt ID: [id number] Authenticated by Katya Cruz MD On 04/28/2023 10:19:39 AM at 1019 PATIENT NAME: LUIS GUZMÁN [facility] 2023-04-28 07:29:00 [id number] [address] PATIENT NAME: LUIS GUZMÁN ADMIT DATE: 04/28/23 ACCOUNT NO: [id number] ROOM NO: AGE: 67 REPORT TYPE: eELECTROCARDIOGRAM SEX: M ADMITTING PHYSICIAN: ATTENDING PHYSICIAN: Katya Cruz MD Order: [id number] Test Reason : preop Test Date/Time Stamp: TueApr 28 2023 07:29:54 Blood Pressure : / mmHG Vent. Rate : 056 BPM Atrial Rate : 000 BPM P-R Int : 000 ms QRS Dur : 096 ms QT Int : 420 ms P-R-T Axes : 000 -34 -85 degrees QTc Int : 405 ms Sinus bradycardia Left axis deviation Inferior infarct , age undetermined ST and T wave abnormality, consider lateral ischemia Abnormal ECG No previous ECGs available Confirmed by KATYA CRUZ ([id number]) on 04/28/2023 8:35:59 AM Referred By: Katya Cruz Confirmed by:KATYA CRUZ at 0835 PATIENT NAME: LUIS GUZMÁN [facility] 2023-04-27 17:39:00 [id number] [place] [address] PATIENT NAME: LUIS GUZMÁN ADMIT DATE: 04/28/23 ACCOUNT NO: [id number] ROOM NO: AGE: 67 REPORT TYPE: HISTORY AND PHYSICAL SEX: M ADMITTING PHYSICIAN: ATTENDING PHYSICIAN: Katya Cruz MD Cardiology ADMISSION DATE: 04/28/2023 08:00:00 WORLD TRAVEL COUNSELOR: Katya Cruz MD REASON FOR ADMISSION: Recent hospitalization after viral illness with acute congestive heart failure with cardiomyopathy, worsening ejection fraction with wall motion abnormalities and elevated troponins, high likelihood of significant coronary artery disease. HISTORY OF PRESENT ILLNESS: Luis is a 67-year-old patient who has been followed up regularly on medical therapy and risk factor modification until recently when he was hospitalized at [facility] with a viral illness that turned into a pneumonia. At that time, he fell also and had some rib injuries. He had an abnormal troponin. The echo showed a picture of dilated cardiomyopathy and wall motion abnormalities consistent with stress cardiomyopathy or disease in the LAD distribution. Given the patient's symptoms and the findings on the echo, he is here for cardiac catheterization to assess his coronaries for possible revascularization. The patient has not had any previous cardiac catheterization. He is feeling a little bit better after the pneumonia, but he still has chest pains attributed to the rib injury and dyspnea on mild exertion. His last carotid Doppler was negative back in 2018. His EKG is with bifascicular block, sinus rhythm. Echocardiogram described above with ejection fraction of 35% to 40% with anteroapical severe hypokinesis and mild to moderate mitral regurgitation. Last nuclear stress test in 2018 was negative. The rest of the cardiac testing is enclosed. PAST MEDICAL HISTORY: Remarkable for hypertension, hyperlipidemia, diabetes and diabetic neuropathy. PAST SURGICAL HISTORY: He has had abscess in the neck drained in the past and history of AV fistula repair. ALLERGIES: NO KNOWN DRUG ALLERGIES. MEDICATIONS: He takes metformin, is on hold, tamsulosin, finasteride, takes insulin eyedrops, atorvastatin 20 mg daily, nifedipine 30 mg daily, irbesartan/hydrochlorothiazide 300/12.5 mg daily, carvedilol 25 mg b.i.d., furosemide 20 mg daily, aspirin 81 mg daily and Plavix was recently started at 75 mg daily. SOCIAL HISTORY: There is no history of smoking, alcohol or street drug use. PATIENT NAME: LUIS GUZMÁN FAMILY HISTORY: Positive for atherosclerotic cardiovascular disease. REVIEW OF SYSTEMS: Remarkable for the above, in addition to fatigue, dizziness, dry mouth, bruising, neuropathy, difficulty balancing at times, numbness. No acute GI or symptoms. No TIAs or strokes. PHYSICAL EXAMINATION: GENERAL: Reveals a pleasant 67-year-old patient, in no acute distress. VITAL SIGNS: Blood pressure 120/65, pulse 55 and regular, respiratory rate 16 and unlabored, temperature afebrile. HEENT: Head atraumatic, normocephalic. Eyes and ENT examination within normal for age. NECK: Supple. No jugular venous distention, bruits or lymphadenopathy. Normal upstroke. LUNGS: Clear and resonant. Decreased air entry at the bases noted. HEART: Regular rate and rhythm with 2/6 systolic ejection murmur at the left lower sternal border. No gallops. The heart is mildly enlarged with bradycardia. ABDOMEN: Soft, no tenderness, no organomegaly, no masses or bruits. EXTREMITIES: 1+ edema, varicosities in the lower extremities noted. 2+ distal pulses. No cyanosis or clubbing. NEUROLOGIC: Alert and oriented x3. Examination appears to be nonfocal. LABORATORY DATA: Pending. Noninvasive cardiovascular workup enclosed. IMPRESSION: This is a 67-year-old patient who recently had a viral infection that led to a pneumonia. He had a markedly abnormal troponin and wall motion abnormalities on the echo. He was diagnosed with non-ST wave myocardial infarction and cardiomyopathy, likely ischemic versus post-stress cardiomyopathy. The patient's coronary status needs to be defined. He is here for left heart catheterization to assess his coronaries for possible revascularization. RECOMMENDATION: To proceed with left heart catheterization and possible revascularization. The risks and benefits of the planned procedures were discussed in detail with the patient and available family members, and he is willing to proceed. Rest as per orders. Dictated By: Katya Cruz MD Date Dictated: 04/27/2023 17:39:23 Date Transcribed: 04/27/2023 21:37:52 SFD/SON/RYANN Receipt ID: [id number] Authenticated by Katya Cruz MD On 04/28/2023 08:41:14 AM at 0841 PATIENT NAME: LUIS GUZMÁN [facility] 2023-01-09 16:50:17 Formatting of this n ote might be different from the original. Written/verbal d/c instructions, out of ER no distress [facility] 2023-01-09 15:10:54 Formatting of this n ote might be different from the original. Luis Guzmán is a 67 year old male c/o dysuria since yesterday, aching T Gianna Encinas RN [facility] 2022-12-30 10:30:00 Formatting of this n ote is different from the original. Images from the original note were not included. Venipuncture collection performed by clean technique on the right anticubitus. Total of 1 attempts were made. Slight pressure and a bandage/dressing were applied to the site(s). The patient experienced no complications. The following specimens were processed according to instructions and sent to [facility] laboratories per lab order on 12/30/2022 : LT BLUE SST 1 PST gel lithium heparin RED LAV 1 PPT DK GREEN (LiHep) DK GREEN (SodH) FRIED DK BLUE (K2) DK BLUE (S) ACD Blood Culture NIPT/NTD T [facility]
[2024-03-12] MEDS ORDERED: LIDOCAINE 2% W/EPI 1:200,000 MPF 20 ML VIAL IM ONE (22:53)
--- NOTE | 2024-03-12 23:16 | EDPHYS ---
Physician Documentation [facility] Name: Luis Guzmán Age: 68 yrs Sex: Male : 1955 Arrival Date: 03/12/2024 Time: 21:27 Bed 8 Private MD: ED Physician Aime Marsh HPI: 03/12 22:25 This 68 yrs old Male presents to ER via Ambulatory with complaints of Foot cp Injury, PT is on blood thinners, Laceration To Foot. 22:25 The patient presents with an injury. The complaints affect the dorsum of left foot. cp Context: dropped bottle of shampoo onto foot. Onset: The symptoms/episode began/occurred today. Associated signs and symptoms: Pertinent positives: persistent bleeding due to taking blood thinner. Treatment prior to arrival includes: dressing. Historical: - Allergies: 22:09 No Known Allergies; cm10 - PMHx: 22:09 Cerebrovascular accident; Diabetes mellitus; Hypertensive disorder; cm10 - PSHx: 22:09 Coronary artery bypass graft; cm10 - Immunization history:: Adult Immunizations up to date. - Infectious Disease History:: Denies. - Social history:: Smoking status: Patient denies any tobacco usage or history of. ROS: 22:30 Constitutional: Negative for chills, fever, cp 22:30 Skin: Positive for laceration(s), of the dorsum of left foot, persistent bleeding, 22:30 All other systems are negative, cp Exam: 22:35 Constitutional: The patient appears in no acute distress, alert, awake, non-toxic, well cp developed, well nourished, 22:35 Head/Face: Normocephalic, atraumatic. cp 22:35 Musculoskeletal/extremity: Extremities: noted in the dorsum of left foot: superficial skin laceration noted with persistent bleeding noted proximal to left great toe, Perfusion: the extremity is normally perfused throughout, Sensation intact. 22:35 Neuro: Orientation: to person, place \T\ time. Mentation: is normal, Gait: is steady, Vital Signs: 22:07 BP 146 / 68; Pulse 58; Resp 18; Temp 97.5; Pulse Ox 98% on R/A; Weight 77.11 kg; Pain cm10 6/10; 23:20 BP 145 / 68; Pulse 60; Resp 17; Temp 97.5; Pulse Ox 98% ; Pain 0/10; bm8 22:07 Pain Scale: Adult cm10 23:20 Pain Scale: Adult bm8 [place] Coma Score: 23:20 Eye Response: spontaneous(4). Motor Response: obeys commands(6). Verbal Response: bm8 oriented(5). Total: 15. MDM: 22:22 Medical Screening Exam initiated cp 22:45 Differential diagnosis: dislocation, open fracture, closed fracture, deep laceration, cp skin avulasion, skin tear. 23:15 Data reviewed: vital signs, nurses notes, radiologic studies, plain films. cp 23:15 Independent interpretation of the following test(s) in the Emergency Department X-Ray: cp My interpretation is images of left foot negative for fracture. Care significantly affected by the following chronic conditions: Diabetes, Hypertension. Counseling: I had a detailed discussion with the patient and/or guardian regarding the historical points, exam findings, and any diagnostic results supporting the discharge/admit diagnosis, radiology results, to return to the emergency department if symptoms worsen or persist or if there are any questions or concerns that arise at home. ED course: wound cleaned and dressed using surgiseal and pressure dressing. will discharge to home for continued monitoring. 03/12 22:13 Order name: XRAY Foot LEFT 3 View cp 03/12 22:33 Order name: Dressing - Wound; Complete Time: 23:01 cp 03/12 22:33 Order name: Gloves, Sterile; Complete Time: 23:01 cp 03/12 22:33 Order name: Setup Suture Tray; Complete Time: 23:01 cp Administered Medications: 23:08 Not Given (Other Intervention Used): lidocaine(2 %) 10 ml 5 ml Infiltration once; to bm8 bedside, with epinephrine Disposition: 03/13 18:28 Chart complete. cp Disposition Summary: 03/12/24 23:15 Discharge Ordered Notes: Location: Home cp Problem: new cp Symptoms: have improved cp Condition: Stable cp Diagnosis - Foot Laceration/ Open wound of foot - left cp Followup: cp - With: Private Physician - When: 1 - 2 days - Reason: Wound Recheck Discharge Instructions: - Discharge Summary Sheet cp - Wound Care, Adult cp - Uncontrolled Wound Bleeding cp Forms: - Medication Reconciliation Form cp - Antibiotic Education cp - Prescription Opioid Use cp - Patient Portal Instructions cp - Leadership Thank You Letter cp Addendum: 03/14/2024 00:59 Co-signature as Attending Physician, Aime Marsh MD I agree with the assessment s p4 and plan of care. I reviewed the patient's care provided by the Advanced Practice Provider and agree with the diagnosis and treatment plan. Signatures: Dispatcher [employer] EDMS Aris Mohamud PA PA cp Potepalov, Sergey, MD MD sp4 Imelda Lacey RN RN cm10 Carlos Graves RN bm8 Corrections: (The following items were deleted from the chart) 03/13 18:24 18:23 Skin: Positive for laceration(s), of the dorsum of left foot, persistent cp bleeding, cp 18:24 18:23 Constitutional: Negative for chills, fever, cp cp
--- NOTE | 2024-03-12 23:16 | ER ---
Nurse's Notes [facility] Name: Luis Guzmán Age: 68 yrs Sex: Male : 1955 Arrival Date: 03/12/2024 Time: 21:27 Bed 8 Private MD: Diagnosis: Foot Laceration/ Open wound of foot-left Presentation: 03/12 22:07 Chief complaint: Patient states: Laceration to left foot. Pt states that he dropped a cm10 shampoo bottle on his foot and has a laceration. Pt taking blood thinners, unknown which one. Coronavirus screen: Client denies travel out of the [place] in the last 14 days. Ebola Screen: Patient denies travel to an Ebola-affected area in the 21 days before illness onset. No symptoms or risks identified at this time. Initial Sepsis Screen: Does the patient meet any 2 criteria? No. Patient's initial sepsis screen is negative. Does the patient have a suspected source of infection? No. Patient's initial sepsis screen is negative. Risk Assessment: Do you want to hurt yourself or someone else? Patient reports no desire to harm self or others. Onset of symptoms was March 12, 2024. 22:07 Method Of Arrival: Ambulatory cm10 22:07 Acuity: POORNIMA 4 cm10 Triage Assessment: 22:09 General: Appears in no apparent distress. comfortable, Behavior is calm, cooperative. cm10 Pain: Complains of pain in left foot. Neuro: No deficits noted. Level of Consciousness is awake, alert, obeys commands, Oriented to person, place, time, situation, Appropriate for age. Respiratory: No deficits noted. Airway is patent Respiratory effort is even, unlabored, Respiratory pattern is regular, symmetrical. Injury Description: Laceration sustained to left first toe moderate bleeding noted at this time. Historical: - Allergies: 22:09 No Known Allergies; cm10 - PMHx: 22:09 Cerebrovascular accident; Diabetes mellitus; Hypertensive disorder; cm10 - PSHx: 22:09 Coronary artery bypass graft; cm10 - Immunization history:: Adult Immunizations up to date. - Infectious Disease History:: Denies. - Social history:: Smoking status: Patient denies any tobacco usage or history of. Screenin:57 [facility] ED Fall Risk Assessment (Adult) History of falling in the last 3 months, lg3 including since admission No falls in past 3 months (0 pts) Confusion or Disorientation No (0 pts) Intoxicated or Sedated No (0 pts) Impaired Gait No (0 pts) Mobility Assist Device Used No (0 pt) Altered Elimination No (0 pt) Score/Fall Risk Level 0 - 2 = Low Risk Oriented to surroundings, Maintained a safe environment, Educated pt \T\ family on fall prevention, incl call for assistance when getting out of bed, Assessed \T\ reinforced patient's understanding of fall precautions. Abuse screen: Denies threats or abuse. Denies injuries from another. Nutritional screening: No deficits noted. Tuberculosis screening: No symptoms or risk factors identified. Assessment: 22:57 General: Appears in no apparent distress. comfortable, Behavior is calm, cooperative. lg3 Pain: Denies pain. Neuro: No deficits noted. [place] Agitation-Sedation Scale (RASS): 0 - Alert and Calm Level of Consciousness is awake, alert, obeys commands, Oriented to person, place, time, situation. Cardiovascular: No deficits noted. Denies chest pain, shortness of breath, Capillary refill < 3 seconds Clubbing of nail beds is absent JVD is absent Patient's skin is warm and dry. Respiratory: No deficits noted. Airway is patent Respiratory effort is even, unlabored, Respiratory pattern is regular, symmetrical. GI: No deficits noted. No signs and/or symptoms were reported involving the gastrointestinal system. : No signs and/or symptoms were reported regarding the genitourinary system. EENT: No deficits noted. No signs and/or symptoms were reported regarding the EENT system. Derm: Skin is intact, is healthy with good turgor, Skin is dry, Skin is normal, Skin temperature is warm Wound noted left foot. Musculoskeletal: No deficits noted. No signs and/or symptoms reported regarding the musculoskeletal system. Circulation, motion, and sensation intact. Range of motion: intact in all extremities. Vital Signs: 22:07 BP 146 / 68; Pulse 58; Resp 18; Temp 97.5; Pulse Ox 98% on R/A; Weight 77.11 kg; Pain cm10 6/10; 23:20 BP 145 / 68; Pulse 60; Resp 17; Temp 97.5; Pulse Ox 98% ; Pain 0/10; bm8 22:07 Pain Scale: Adult cm10 23:20 Pain Scale: Adult bm8 [place] Coma Score: 23:20 Eye Response: spontaneous(4). Motor Response: obeys commands(6). Verbal Response: bm8 oriented(5). Total: 15. ED Course: 21:33 Patient arrived in ED. gm2 21:45 Aris Mohamud PA is PHCP. cp 21:45 Aime Marsh MD is Attending Physician. cp 22:09 Triage completed. cm10 22:13 Arm band placed on right wrist. Patient placed in waiting room. cm10 22:57 Oralia Hi, RN is Primary Nurse. lg3 22:57 Patient has correct armband on for positive identification. Placed in gown. Bed in low lg3 position. Call light in reach. Side rails up X 1. Client placed on continuous cardiac and pulse oximetry monitoring. NIBP monitoring applied. Door closed. Noise minimized. Warm blanket given. Pillow given. 22:57 Wound care: to laceration located on left foot was cleaned with Hibiclens, dressed with lg3 Neosporin, 4X4s, Kerlix, Patient tolerated well. 22:58 XRAY Foot LEFT 3 View In Process Unspecified. EDMS 23:20 Provided Education on: post er care. bm8 23:20 No provider procedures requiring assistance completed. Patient did not have IV access bm8 during this emergency room visit. Patient maintains SpO2 saturation greater than 95% on room air. Administered Medications: 23:08 Not Given (Other Intervention Used): lidocaine(2 %) 10 ml 5 ml Infiltration once; to bm8 bedside, with epinephrine Medication: 23:20 VIS not applicable for this client. bm8 Outcome: 23:15 Discharge ordered by . cp 23:20 Discharged to home ambulatory, bm8 23:20 Condition: stable 23:20 Discharge instructions given to patient, Instructed on discharge instructions, follow up and referral plans. no drinking with medication, no driving heavy equipment, medication usage, safety practices, wound care, Demonstrated understanding of instructions, follow-up care, medications, 23:22 Patient left the ED. bm8 Signatures: Dispatcher [employer] EDWY Aris Mohamud PA PA cp Able, Lacie, RN RN lg3 Imelda Lacey RN RN cm10 Shaneka Rosales 2 Carlos Graves RN RN bm8 Corrections: (The following items were deleted from the chart) 23:09 22:57 Wound care: to laceration located on left foot was cleaned with Eyad, lg3 Patient tolerated well. lg3
[2024-03-13 01:15] VITALS: TEMP 97.5; O2SAT 98
[2024-03-13 01:16] VITALS: BP 145/68
--- NOTE | 2024-03-13 07:03 | RAD REPORT ---
EXAM DESCRIPTION: Foot Left 3 View, 03/12/2024 10:13 PM CHILD PSYCHIATRIST CLINICAL HISTORY: 68 years, Male, dropped shampoo bottle onto foot TECHNIQUE: 3 views left foot COMPARISON: None. FINDINGS: Alignment normal. Joint space is preserved. Atherosclerotic vascular calcification. No soft tissue gas or radiopaque foreign body. No acute fracture identified. IMPRESSION: 1. No fracture or malalignment of the left foot. 2. Atherosclerotic vascular calcification. Electronically signed by: Rashad Umanzor MD 03/12/2024 11:13 PM CHILD PSYCHIATRIST Due to temporary technical issues with the PACS/myThings reporting system, reports are being isi d by the in-house radiologist without review as a courtesy to ensure prompt reporting the interpreting radiologist is fully responsible for the content of the report. Transcribed Date/Time: 03/13/2024 7:03 AM
== END 2024-03-12 23:22 | disposition home or self-care (01) ==
LOC: ER 21:27
DX: S91.312A Laceration without foreign body, left foot, initial encounter (principal); E11.9 Type 2 diabetes mellitus without complications; I10 Essential (primary) hypertension; Z86.73 Personal history of transient ischemic attack (TIA), and cerebral infarction without residual deficits; Z95.1 Presence of aortocoronary bypass graft; Z79.01 Long term (current) use of anticoagulants
CPT/HCPCS: 99283